=== PATIENT | male | born 1955 | race Caucasian/White ===

== ENCOUNTER → 2017-11-02 11:32 | Outpatient (CLI) | payer OTHER, SELFPAY ==
--- NOTE | 2017-11-02 11:34 | CT_ITS ---
STUDY: CT ABDOMEN AND PELVIS WITH CONTRAST REASON FOR EXAM: Male, 62 years old. Two-month history of 25 pound weight loss. Night sweats and anemia. RADIATION DOSAGE (If Supplied By Facility): CTDIvol = ( 21.24 ) mGy, DLP = ( 2180.86 ) mGycm TECHNIQUE: Transaxial images were obtained from the dome of the diaphragm to the symphysis pubis with oral contrast. 100mL ml of Isovue 300 contrast was administered. Sagittal and coronal images were reconstructed. Individualized dose optimization techniques were used for this CT. COMPARISON: Comparison is made with prior study dated July 19, 2017. FINDINGS: Bibasilar atelectasis worse on the left side. Bilateral intraluminal filling defects within the pulmonary arteries. Coronary artery calcification. There is decreased attenuation of the liver consistent with steatosis. Several small subcentimeter cysts are seen in the liver. There is a stable 1.9 cm x 2 cm indeterminate mass with peripheral enhancement along the edge of the left lobe of the liver. This may represent an atypical hemangioma. Prior MRI scan demonstrated this to be an hepatic hemangioma. Normal gallbladder and extrahepatic biliary system. Borderline splenomegaly. Normal pancreas. Normal bilateral adrenal glands. Numerous parapelvic cysts are once again seen in both kidneys. Normal visualized stomach. Normal small intestine. There are multiple colonic diverticula consistent with diverticulosis. The patient is status post appendectomy. Normal abdominal aorta. Normal inferior vena cava. There is borderline retroperitoneal lymphadenopathy with enlarged nodes no greater than 10mm in the short axis diameter. Normal urinary bladder. There are prostatic calcifications. There is a small umbilical hernia containing fat. Small left inguinal hernia containing fat. There are mild degenerative changes of the visualized lumbar spine. CT/Abdomen/Pelvis WITH Contrast IMPRESSION: Stable examination. Bilateral pulmonary emboli. Electronically Signed: Antoni Lawson MD at 14:43 EST Tel [phone], Service support ,
--- NOTE | 2017-11-02 11:42 | CT_ITS ---
STUDY: CT CHEST WITH CONTRAST REASON FOR EXAM: Male, 62 years old. Two-month history of 25 pound weight loss. Night sweats and anemia. RADIATION DOSAGE (If Supplied By Facility): CTDIvol = ( 21.24 ) mGy, DLP = ( 2180.86 ) mGycm TECHNIQUE: Transaxial imaging was performed following intravenous administration of 100mL ml of Isovue 300 contrast material. Multiplanar coronal and sagittal images were reformatted. Individualized dose optimization techniques were used for this CT. COMPARISON: None. FINDINGS: Multiple intraluminal filling defects are seen in the pulmonary arteries bilaterally. These involve both upper and lower lobes. The main pulmonary arteries are widely patent. Mild degree of bibasilar atelectasis slightly worse on the left side. Tiny left pleural effusion. Coronary artery calcification. Normal mediastinum. Normal hilar regions. Normal enhanced pulmonary arteries. Normal aorta arch and descending thoracic aorta. There are degenerative changes of the thoracic spine. Fatty infiltration of the liver. Several small hepatic cysts. CT/Chest WITH Contrast IMPRESSION: Multiple bilateral pulmonary emboli. The referring physician was notified. Electronically Signed: Antoni Lawson MD at 14:38 EST Tel [phone], Service support ,
== END ==
PROVIDERS: Family Provider Family Medicine Geriatric Medicine; PCP Family Medicine Geriatric Medicine; Visit Provider Family Medicine Geriatric Medicine
DX: R10.9 Unspecified abdominal pain (principal); R63.4 Abnormal weight loss
CPT/HCPCS: 71260; 74177; Q9967; A4216

== ENCOUNTER → 2017-11-02 14:27 | Outpatient (CLI) | payer OTHER, SELFPAY | PROVIDERS: Family Provider Family Medicine Geriatric Medicine; PCP Family Medicine Geriatric Medicine; Visit Provider Family Medicine Geriatric Medicine | DX: R79.1 Abnormal coagulation profile (principal) | CPT/HCPCS: 36415 ==

== ENCOUNTER → 2017-11-03 09:41 | Outpatient (CLI) | payer OTHER, SELFPAY ==
--- NOTE | 2017-11-03 | CYSPIN_PTH ---
PATIENT: SOWMYA PAREDES LOC: [facility] U#:[id number] AGE/SX: 70/M ROOM: RE11/03/[address]: Dr. Wade Arce MD : 1955 BED: DIS: SPEC #: [id number] RECD: 11/03/17 14:18 STATUS: CLINT KATELIN #: [id number] OSCAR: 11/03/17 00:[address]: Wade Arce Chi DEPT: CYTOLOGY RECD BY: Lisandro Morgan Tissues: Urine Procedures: Pap Stain (control) Special Stain Group II Cytospin Fluid HEADER OPERATION: Not noted PRE-OP DIAGNOSIS: R10.9 TISSUE SUBMITTED: Urine for cytology DIAGNOSIS CYTOLOGY Urine for cytology (cytospin): Degenerating urothelial cells are present. Crystalline debris noted. AM:ashley 11/06/17 CYTOLOGY STUDY Slides are reviewed. CYTOLOGY GROSS Received is 60 ml of gold, dark fluid labeled with the patient's name and and designated per the requisition as urine. Submitted for cytology preparation. 11/03/17 TC:5 CPT: 40823
[2017-11-03 09:47] LABS: Cytology, Body Fluid / CSF SEE PATHOLOGY REPORT
[2017-11-06 16:09] LABS: Albumin 3.1 g/dL (2.9-4.4); Alpha-1-Globulins 0.4 g/dL (0.0-0.4); Alpha-2-Globulins 0.6 g/dL (0.4-1.0); Gamma Globulin 1.8 g/dL (0.4-1.8); Immunoglobulin A 307 mg/dL (61-437); Immunoglobulin G 1681 mg/dL (700-1600); Immunoglobulin M 152 mg/dL (20-172); PROEL- TOTAL PROTEIN 6.9 g/dL (6.0-8.5); PROELU- Albumin, Urine 21.4 % (.); PROELU- Alpha-1-Globulin,Ur 2.1 % (.); PROELU- Alpha-2-Globulin,Ur 13.4 % (.); PROELU- Beta Globulin, Ur 27.1 % (.); Total Protein, Ur 25.3 mg/dL (Not Estab.)
[2017-11-07 10:26] LABS: AFP, Tumor Marker 1.7 ng/mL (0.0-8.3); Carbohydrate AG 19-9 4 U/mL (0-35); Carcinoembryonic Antigen 2.7 ng/mL (0.0-4.7)
== END ==
PROVIDERS: Family Provider Family Medicine Geriatric Medicine; PCP Family Medicine Geriatric Medicine; Visit Provider Family Medicine Geriatric Medicine
DX: C85.89 Other specified types of non-Hodgkin lymphoma, extranodal and solid organ sites (principal); D64.9 Anemia, unspecified; R10.9 Unspecified abdominal pain; R11.0 Nausea; R63.0 Anorexia
CPT/HCPCS: 36415; 82105; 82378; 82784; 84165; 84166; 86301; 86334; 88108; 88313

== ENCOUNTER → 2017-11-03 11:47 | Outpatient (CLI) | payer OTHER, SELFPAY ==
--- NOTE | 2017-11-03 11:49 | VDLE_ITS ---
Reason For Study: PE RIGHT LEFT GSV is normal. GSV is normal. CFV is compressible, spontaneous, phasic, CFV is compressible, spontaneous, phasic, competent and demonstrates normal competent, and demonstrates normal augmentation. augmentation. FV is compressible, spontaneous, phasic, FV is compressible, spontaneous, phasic, competent and demonstrates normal competent and demonstrates normal augmentation. augmentation. POP V is compressible, spontaneous, phasic, POP V is compressible, spontaneous, phasic, competent and demonstrates normal competent and demonstrates normal augmentation. augmentation. T/P Trunk is compressible. T/P Trunk is compressible. PTV is compressible. PTV is compressible. RT PerV is compressible. LT PerV is compressible. Procedure Exam performed in department. A preliminary report was called and/or faxed to Dr. Arce. Interpretation Summary Deep veins of the lower extremities are bilaterally patent and compressible segmentally. There is no evidence of deep vein thrombosis on either side. Valvular competence appears intact within the proximal deep venous systems bilaterally. The greater saphenous veins appear bilaterally patent and compressible segmentally. Ordering Physician: Wade Arce Referring Physician: Johan Collado Chi Performed By: Evelin Ornelas RVT
== END ==
PROVIDERS: Family Provider Family Medicine Geriatric Medicine; PCP Family Medicine Geriatric Medicine; Visit Provider Family Medicine Geriatric Medicine
DX: R60.0 Localized edema (principal)
CPT/HCPCS: 93970

== ENCOUNTER → 2017-11-13 10:26 | Outpatient (CLI) | payer OTHER, SELFPAY ==
[2017-11-09 10:14] VITALS: BMI 29.9
[2017-11-13 11:43] LABS: PSA,Total- Diagnostic 0.64 ng/mL (0.0-4.0)
== END ==
PROVIDERS: Family Provider Family Medicine Geriatric Medicine; PCP Family Medicine Geriatric Medicine; Visit Provider Nurse Practitioner Adult Health
DX: N40.1 Benign prostatic hyperplasia with lower urinary tract symptoms (principal)
CPT/HCPCS: 36415; 84153

== ENCOUNTER → 2017-11-16 17:04 | Outpatient (CLI) | payer OTHER, SELFPAY ==
[2017-11-14 14:40] VITALS: BP 100/66
--- NOTE | 2017-11-16 15:30 | CYSPIN_PTH ---
PATIENT: SOWMYA PAREDES LOC: [facility] U#:[id number] AGE/SX: 70/M ROOM: RE11/16/[address]: Dr. Dutch Bonilla MD : 1955 BED: DIS: SPEC #: [id number] RECD: 11/17/17 05:23 STATUS: CLINT KATELIN #: [id number] OSCAR: 11/16/17 15:[address]: Dutch Bonilla DEPT: CYTOLOGY RECD BY: Dylan Tyler ENTERED: 11/17/17 05:23 SP TYPE: CYSPIN FL OTHR DR: Dr. Wade Arce MD Tissues: Urine Procedures: Pap Stain (control) Special Stain Group II Cytospin Fluid HEADER OPERATION: Not noted PRE-OP DIAGNOSIS: Hematuria TISSUE SUBMITTED: Urine for cytology DIAGNOSIS CYTOLOGY Urine for cytology (cytospin): Negative for malignant cells. AM:ashley 11/20/17 CYTOLOGY STUDY Slides are reviewed. CYTOLOGY GROSS Received is 25 ml of thick, cloudy yellow-orange fluid labeled with the patient's name and and designated per the requisition as urine. Submitted for cytology preparation. 11/17/17 TC:5 CPT: 03175
[2017-11-16 17:06] LABS: Cytology, Body Fluid / CSF SEE PATHOLOGY REPORT
== END ==
PROVIDERS: Visit Provider Urology
DX: R31.9 Hematuria, unspecified (principal)
CPT/HCPCS: 88108; 88313

== ENCOUNTER → 2017-12-21 09:36 | Outpatient (CLI) | payer OTHER, SELFPAY ==
[2017-12-21 13:43] LABS: Absolute Lymphocyte Count 0.53 X10^3/ul (0.83-4.51); Absolute Neutrophil Count 5.7 X10^3/uL (2.0-7.7); Basophil# 0.03 X10^3/uL; Basophil% 0.4 % (0-1); Hematocrit 29.7 % (40-54); Lymphocyte # 0.53 X10^3/ul (4.0); Lymphocyte % 7.8 % (19-41); Mean Corp Hgb Conc 30.3 g/gl (32-36); Mean Corpuscular Hgb 25.9 pg (27.0-32.0); Mean Corpuscular Volume 85.6 fL (80-94); Mean Platelet Vol. 8.6 fl (6.2-12.0); Monocyte# 0.57 X10^3/uL; Monocyte% 8.4 % (0-10); Neutrophil # 5.66 X10^3/uL (2.7-7.7); Neutrophil % 83.1 % (47-70); Platelet Count 190 K/mm3 (150-450); RBC Distribution Width CV 16.1 % (11.6-14.6); RBC Distribution Width SD 48.9 fl (35.1-43.9); Red Blood Count 3.47 M/mm3 (4.6-6.2); White Blood Count 6.8 K/mm3 (4.4-11.0)
[2017-12-21 13:44] LABS: ALB/GLOB Ratio 0.6 RATIO (0.9-2.4); AST(SGOT) 14 U/L (15-37); Alanine Aminotransfer ALT/SGPT 15 U/L (16-61); Albumin, Serum 2.9 g/dL (3.2-5.0); Alkaline Phosphatase 58 U/L (45-117); Anion Gap 7 (5-15); BUN 26 mg/dL (7-18); BUN/Creat Ratio 20.2 RATIO (10-20); Calcium,Total 8.5 mg/dL (8.5-10.1); Chloride 103 mmol/L (98-107); Creatinine, Serum 1.29 mg/dL (0.70-1.30); EST Glomerular Filtration Rate 60 mL/min (>60); Est Glom Filt Rate - Afr Amer 72 mL/min (>60); Globulin 4.8 g/dL (2.2-4.2); Glucose 104 mg/dL (74-106); Potassium 4.8 mmol/L (3.5-5.1); Protein, Total 7.7 g/dL (6.4-8.2); Sodium Level 135 mmol/L (136-145); Thyroid Stim Hormone (TSH) 1.95 uIU/mL (0.358-3.74)
[2017-12-21 13:50] LABS: POSITIVE COUNT NO; POSITIVE DIFFERENTIAL YES; POSITIVE MORPHOLOGY NO
[2017-12-21 13:59] LABS: Differential Indicated SCAN CRITERIA MET
== END ==
PROVIDERS: Family Provider Family Medicine Geriatric Medicine; PCP Family Medicine Geriatric Medicine; Visit Provider Family Medicine Geriatric Medicine
DX: I10 Essential (primary) hypertension (principal)
CPT/HCPCS: 36415; 80053; 84443; 85025

== ENCOUNTER → 2017-12-26 15:20 | Outpatient (CLI) | payer OTHER, SELFPAY ==
[2017-12-26 15:58] LABS: Absolute Lymphocyte Count 0.68 X10^3/ul (0.83-4.51); Absolute Neutrophil Count 5.4 X10^3/uL (2.0-7.7); Basophil# 0.02 X10^3/uL; Basophil% 0.3 % (0-1); Hematocrit 28.9 % (40-54); Hemoglobin 8.7 g/dl (13.0-16.5); Lymphocyte # 0.68 X10^3/ul (4.0); Lymphocyte % 10.4 % (19-41); Mean Corp Hgb Conc 30.1 g/gl (32-36); Mean Corpuscular Hgb 25.2 pg (27.0-32.0); Mean Corpuscular Volume 83.8 fL (80-94); Mean Platelet Vol. 8.1 fl (6.2-12.0); Monocyte# 0.42 X10^3/uL; Monocyte% 6.4 % (0-10); Neutrophil # 5.43 X10^3/uL (2.7-7.7); Neutrophil % 82.9 % (47-70); Platelet Count 138 K/mm3 (150-450); RBC Distribution Width CV 16.6 % (11.6-14.6); RBC Distribution Width SD 51.1 fl (35.1-43.9); Red Blood Count 3.45 M/mm3 (4.6-6.2); White Blood Count 6.6 K/mm3 (4.4-11.0)
[2017-12-26 16:00] LABS: POSITIVE COUNT NO; POSITIVE DIFFERENTIAL NO; POSITIVE MORPHOLOGY NO
[2017-12-26 16:30] LABS: International Normalized Ratio 1.6; Prothrombin Time (Protime)PT. 19.5 SECONDS (11.7-14.9)
[2017-12-26 16:31] LABS: Partial Thromboplast Time 43.5 Seconds (24.1-36.2)
== END ==
PROVIDERS: Family Provider Family Medicine Geriatric Medicine; PCP Family Medicine Geriatric Medicine; Visit Provider Family Medicine Geriatric Medicine
DX: R23.3 Spontaneous ecchymoses (principal); D64.9 Anemia, unspecified
CPT/HCPCS: 36415; 85025; 85610; 85730

== ENCOUNTER → 2017-12-29 08:56 | Outpatient (CLI) | payer OTHER, SELFPAY ==
--- NOTE | 2017-12-29 | BMB_PTH ---
PATIENT: SOWMYA PAREDES LOC: CT U#:[id number] AGE/SX: 70/M ROOM: RE12/29/[address]: Dr. Miguel A Dubon MD : 1955 BED: DIS: SPEC #: [id number] RECD: 12/29/17 13:59 STATUS: CLINT JOHNSONTy #: [id number] OSCAR: 12/29/17 00:[address]: MiguelA Dubon DEPT: BONE MARROW RECD BY: Mariia Christopher ENTERED: 12/29/17 14:00 SP TYPE: BMB OTHR DR: Dr. Wade Arce MD Tissues: A - Bone marrow, NOS B - Bone marrow, NOS C - Bone marrow, NOS Procedures: Decalcification bone/plaque Bone Marrow Aspiration Special Stain Group II PAS Stain (control) Retic (control) Iron Stain (control) Russ Stain (control) Bone Marrow Core Biopsy Iron Stain Bone Marrow HEADER OPERATION: Right hip bone marrow core, clot and aspirate smears PRE-OP DIAGNOSIS: MGUS, anemia TISSUE SUBMITTED: A - Core, B - Clot, C - Smears, and send outs (flow, cytogenetics and MDS FISH) BONE MARROW DIAGNOSIS Right hip bone marrow core, clot and aspirate smears: Slightly hypercellular marrow with trilineage hematopoiesis. Negative for granuloma, lymphoma or malignancy. Iron - in traces, atypical or ring sideroblasts are not seen. Peripheral smear ? normocytic anemia. Flow cytometry study from [facility] shows no evidence for myeloid maturation or an increased blast population. There is no evidence for a lymphoproliferative disorder. Flow cytometry studies for plasma cell dyscrasia show no detectable clonal plasma cell population. The complete report is viewable in patient?s EMR. See comment. WILTON:ashley 01/04/18 COMMENT Bone marrow core is very limited in evaluation and consists of a minute piece of bone core with small amount of marrow tissue with trilineage hematopoiesis. Bone marrow clot consists of only a few marrow particles. Aspirate smears are hypocellular and shows hemodilution. Immunohistochemistry ([id number]) shows mild increase of plasma cells and are polytypic in nature. Serum protein immunofixation electrophoresis show IgG monoclonal protein with lambda light chain specificity and Delcambre appears asymmetrical. Correlation with clinical findings and appropriate follow up are necessary. Case has been reviewed in consultation with Dr. Zaman who concurs with the above diagnosis. IDC:AM BONE MARROW STUDY Slides are reviewed. CBC DATE: 12/29/17 WBC 6.6; RBC 3.56; HGB 9.2; HCT 30.0; MCV 84.3; RDW 16.1; PLTS [id number] SEGS 79.4%; LYMPHS 11.0%; MONOS 8.9%; EOS 0.2%; BASOS 0.3% PERIPHERAL SMEAR: Submitted. RBC: Normocytic anemia. WBC: Unremarkable. The WBC count is compatible to as reported above. PLTS: Adequate. BONE MARROW ASPIRATE DIFFERENTIAL: 200 cell count. Blasts % (normal 0-2): 0 Promyelocytes % (normal 1-5): 0 Myelocytes and metamyelocytes % (normal 17-41): 13 Bands and Segs % (normal 15-32): 70 Eos % (normal 1-6): 2 Basos % (normal 0-1): 0 Monocytes % (normal 0-4): 1 Erythroid Precursors % (normal 17-35): 5 Lymphocytes % (normal 7-13): 9 Plasma Cells % (normal 0-2): 0 ASPIRATE FINDINGS: Site: Right hip Aspicular, Hypocellular M/E ratio: Please see comment (Normal 1.5-4.0) Megakaryocytes: Present and normal morphology. Erythropoiesis: Normoblastic. Granulopoiesis: Progressive and unremarkable. Comment: The above count may not be accurate due to hemodilution. Increase number of plasma cells are not seen. CORE BIOPSY FINDINGS: Site: Right hip Adequacy: Limited Comment: A minute piece of bone core is noted with a small amount of marrow tissue with trilineage hematopoiesis. ASPIRATE CLOT FINDINGS: Site: Right hip Marrow particles: A few Cellularity: 60% M/E ratio: Within normal limits. Megakaryocytes: Present and adequate in number. Granulomas: Absent. Lymphoid aggregates: Absent. Atypical infiltrates: Absent. Comment: Immunohistochemistry ([id number]) shows mild increase of plasma cells and are polytypic in nature. SPECIAL STAINS WITH MATCHED CONTROLS: Iron: In traces, atypical or ring sideroblasts are not seen. Reticulin: No significant increase of reticulin fibers is noted. PAS: Highlights myeloid cells and megakaryocytes. BONE MARROW GROSS A - Received is a container labeled with the patient's name and designated right hip. The specimen consists of a minute piece of porras bone measuring 0.3 cm in length and 0.1 cm in diameter. The specimen is totally submitted in one cassette after decalcification. B - Received labeled with the patient's name and designated right hip is a specimen that consists of approximately 5 cc of bloody fluid that on filtration yields multiple fragments of blood clot measuring in aggregate 3 x 2.5 x 0.3 cm. The specimen is totally submitted in one cassette. C - Also received are 25 unstained and 1 peripheral stained slides. The unstained slides are submitted for appropriate staining. Also received are two green top tubes which are sent to our reference lab for flow, cytogenetics and MDS FISH. / SJ:rg 01/01/18 TC:5 CPT: 49854, 97797, 78157 x2, 27527 x3, 61487 ADDENDUM ADDENDUM ADDENDUM ADDENDUM ADDENDUM ADDENDUM ADDENDUM ADDENDUM ADDENDUM ADDENDUM ADDENDUM ADDENDUM ADDENDUM ADDENDUM ADDENDUM ADDENDUM 01/10/2018 09:21 ADDENDUM 01/10/2018 09:21 ADDENDUM 01/10/2018 09:21 ADDENDUM 01/10/2018 09:21 ADDENDUM 01/10/2018 09:21 CYTOGENETICS REPORT FROM [facility] INTERPRETATION: A normal male chromosome complement was observed in twenty metaphases analyzed. Karyotype: 46,XY[20] FLUORESCENCE IN SITU HYBRIDIZATION (FISH) MDS PANEL FROM [facility] INTERPRETATION: 1. No evidence of deletion of 5q or monosomy 5. 2. No evidence of monosomy 7 or deletion of 7q. 3. No evidence of trisomy 8 (+8). 4. No evidence of deletion of 20q12. Please see complete report in e-chart or EMR for further details
--- NOTE | 2017-12-29 | IMM_PTH ---
PATIENT: SOWMYA PAREDES LOC: CT U#:[id number] AGE/SX: 70/M ROOM: RE12/29/[address]: Dr. Miguel A Dubon MD : 1955 BED: DIS: SPEC #: [id number] RECD: 01/01/18 12:19 STATUS: CLINT RETy #: [id number] OSCAR: 12/29/17 00:[address]: Miguel A Dubon DEPT: IMMUNOHISTOCHEMISTRY RECD BY: Jazmyne Humphreys ENTERED: 01/01/18 12:19 SP TYPE: IMMUNO OTHR DR: Dr. Wade Arce MD Tissues: B - Bone marrow of iliac crest Procedures: CD138 (initial) KAPPA (add) LAMBDA (add) PHYSICIAN & INSTITUTION [place] [id number] SPECIMEN INFORMATION: Tissue Source: B ? Bone marrow clot Clinical Info: MGUS, anemia Specimen Number: [id number] CPT code: 07042, 85176 x2 METHODOLOGY: Deparaffinized sections of prefer/formalin-fixed tissue or PAP/DQ stained slides are incubated with monoclonal/polyclonal antibodies/oligonucleotide probes. Localization is made via biotin free immunoperoxidase method. Appropriate controls are performed and reacted as expected. Results on target cell population are indicated in the following table: RESULTS: ANTIBODY / CLONE RESULT Block B CD138 (B-A38) positive [place] (polyclonal) positive Lambda (polyclonal) positive These tests were developed and their performance characteristics determined by [facility]. They may not have been cleared or approved by the U.S. Food and Drug Administration. The FDA has determined that such clearance or approval is not necessary. INTERPRETATION: B. Bone marrow clot: Mild increase of plasma cells noted, polytypic in nature. SJ:ashley 01/04/18 Case has been reviewed in consultation with Dr. Zaman who concurs with the above diagnosis. IDC:AM
[2017-12-29 09:13] LABS: Absolute Lymphocyte Count 0.73 X10^3/ul (0.83-4.51); Absolute Neutrophil Count 5.3 X10^3/uL (2.0-7.7); Basophil# 0.02 X10^3/uL; Basophil% 0.3 % (0-1); Eosinophil# 0.01 X10^3/uL; Eosinophils% 0.2 % (0-5); Hemoglobin 9.2 g/dl (13.0-16.5); Lymphocyte # 0.73 X10^3/ul (4.0); Mean Corp Hgb Conc 30.7 g/gl (32-36); Mean Corpuscular Hgb 25.8 pg (27.0-32.0); Mean Corpuscular Volume 84.3 fL (80-94); Mean Platelet Vol. 8.2 fl (6.2-12.0); Monocyte# 0.59 X10^3/uL; Monocyte% 8.9 % (0-10); Neutrophil # 5.25 X10^3/uL (2.7-7.7); Neutrophil % 79.4 % (47-70); Platelet Count 169 K/mm3 (150-450); RBC Distribution Width CV 16.1 % (11.6-14.6); RBC Distribution Width SD 48.6 fl (35.1-43.9); Red Blood Count 3.56 M/mm3 (4.6-6.2); White Blood Count 6.6 K/mm3 (4.4-11.0)
[2017-12-29 09:14] LABS: POSITIVE COUNT NO; POSITIVE DIFFERENTIAL NO; POSITIVE MORPHOLOGY NO
[2017-12-29 09:22] LABS: International Normalized Ratio 1.2; Prothrombin Time (Protime)PT. 15.6 SECONDS (11.7-14.9)
[2017-12-29 09:23] LABS: Partial Thromboplast Time 35.3 Seconds (24.1-36.2)
[2017-12-29 09:31] VITALS: BP 128/77; PULSE 105; RESP 14; TEMP 36.8; O2SAT 96; BMI 27.8
--- NOTE | 2017-12-29 09:55 | CT_ITS ---
PROCEDURE: CT-GUIDED CORE BONE BIOPSY OF RIGHT ILIAC BONE WITH BONE MARROW ASPIRATION. Individualized dose optimization techniques were used for this CT. INDICATION: Male, 62 [address] guidance RADIATION DOSAGE (If Supplied By Facility): CTDIvol = ( ) mGy, DLP = ( ) mGycm CONSENT: The risks, benefits and alternatives to the procedure were explained to the patient, and the patient agreed to the procedure and signed the consent. SEDATION: Intermittent the intravenous and demonstration of Versed and fentanyl by nursing staff under continuous cardiopulmonary monitoring. Sedation less than approximately 30 minutes STERILE BARRIER TECHNIQUE: The following sterile barrier precautions were used during the procedure: hand hygiene; use of 2% chlorhexidine aseptic; use of a cap, mask, sterile gown, sterile gloves, sterile full body drape, and a large sterile sheet. PROCEDURE/TECHNIQUE: The risks, benefits, and alternatives to the procedure were explained to patient, and the patient agreed to the procedure and signed a consent form for the procedure. A timeout was performed to confirm the patient's identity, the type of procedure, to be performed and the site of entry. Patient was positioned left lateral decubitus on the CT scan table. Under CT guidance using sterile technique and after infiltration of the skin and subcutaneous soft tissues with 40 mL of lidocaine 1% a 10-gauge bone introducer device was advanced to the posterior aspect of the right iliac bone, a bone window is created then an 11-gauge core biopsy was introduced bone marrow aspiration is performed and a core bone sample was obtained. FINDINGS: Successful CT-guided core biopsy iliac bone with bone marrow aspiration. CT/Biopsy/Inj or Needle Placement IMPRESSION: Successful CT-guided core biopsy of the right iliac bone with bone marrow aspiration. Electronically Signed: Ceferino Miramontes MD at 9:20 EDT Tel , Service support ,
[2017-12-29 11:37] VITALS: BP 111/70; PULSE 100; RESP 20; O2SAT 97
== END ==
PROVIDERS: Family Provider Family Medicine Geriatric Medicine; PCP Family Medicine Geriatric Medicine; Visit Provider Internal Medicine Medical Oncology
DX: Z01.818 Encounter for other preprocedural examination (principal); D64.9 Anemia, unspecified; E72.12 Methylenetetrahydrofolate reductase deficiency; D47.2 Monoclonal gammopathy; R63.4 Abnormal weight loss; E88.09 Other disorders of plasma-protein metabolism, not elsewhere classified; Z79.01 Long term (current) use of anticoagulants; Z79.899 Other long term (current) drug therapy; Z86.711 Personal history of pulmonary embolism
CPT/HCPCS: 20220; 36415; 77012; 85025; 85610; 85730; 88305; 88311; 88313; 88341; 88342; 99156; J7040; A4216

== ENCOUNTER → 2018-01-02 07:47 | Outpatient (CLI) | payer OTHER, SELFPAY ==
--- NOTE | 2018-01-02 08:30 | MRI_ITS ---
STUDY: MRI BRAIN WITHOUT CONTRAST REASON FOR EXAM: Male, 62 years old. Unintentional weight loss. Low hemoglobin. Recent bone biopsy results are not available. TECHNIQUE: Standardized multiplanar fat and water weighted pulse sequences were obtained. COMPARISON: None. FINDINGS: No restricted diffusion to suspect acute or subacute ischemic infarct. Normal size of the ventricles and extra-axial spaces for the patient's age. Few subcortical white matter T2 FLAIR hyperintensity foci in the frontal parietal lobe convexities may be secondary to microvascular disease. The bulk of the white matter is normal. Normal bilateral basal ganglia. Normal thalami. There is no extra-axial fluid accumulation. Normal flow voids within the major intracranial circulation suggesting patency by spin echo criteria. Normal sella turcica, pituitary gland, infundibular stalk, optic chiasm and hypothalamus. Normal tectal plate and pineal gland. Normal midbrain, david and medulla. Normal cerebellum. Normal basal cisterns. Normal bilateral temporal bones. Normal bilateral internal auditory canals. No demonstrated orbital abnormality, within the constraints of a routine brain study. Contraction and mucosal thickening of the left maxillary sinus secondary to chronic sinusitis. Normal calvarium and skull base. Normal visualized soft tissue structures. Normal visualized upper cervical spine. MRI/Brain without Contrast IMPRESSION: 1. No MRI evidence of acute or subacute ischemic infarct. 2. Few subcortical white matter T2 FLAIR hyperintensity foci in both frontal parietal lobe convexities may be secondary to microvascular disease. 3. No MRI evidence of remote cortical-based ischemic infarct. Electronically Signed: Ken Gregory MD at 10:04 EDT , Service support ,
== END ==
PROVIDERS: Family Provider Family Medicine Geriatric Medicine; PCP Family Medicine Geriatric Medicine; Visit Provider Family Medicine Geriatric Medicine
DX: R63.4 Abnormal weight loss (principal)
CPT/HCPCS: 70551

== ENCOUNTER → 2018-01-04 10:15 | Outpatient (CLI) | payer OTHER, SELFPAY ==
--- NOTE | 2018-01-04 10:19 | NM_ITS ---
CLINICAL: 62-year-old male with reported history of abdominal pain and nausea. SEMI-SOLID PHASE 99m Tc SULFUR COLLOID GASTRIC EMPTYING STUDY COMPARISON: CT of the abdomen-pelvis report 11/02/2017 FINDINGS: The patient was administered 1.1 mCi of 99m Tc sulfur colloid mixed with oatmeal and consumed per os. Image acquisitions in the anterior-posterior projections for a total of 60 minutes. There is prompt visualization of the stomach. There is no gastroesophageal reflux identified. The T1/2 linear fit was calculated to be 53.09 minutes, (Normal: 12-56 minutes). NM/Gastric Emptying Study IMPRESSION: 1. NORMAL 99m Tc sulfur colloid semi-solid phase (oatmeal) gastric emptying imaging examination. A. There is upper limits of normal and preserved semi-solid phase gastric emptying compared to normal controls with maintained first order kinetics throughout all components of the examination. (Jhonatan et al, J Nucl Med Tech 38: 186, 2010). Electronically Signed: Dylan Gil DO at 12:41 EDT Tel , Service support ,
== END ==
PROVIDERS: Family Provider Family Medicine Geriatric Medicine; PCP Family Medicine Geriatric Medicine; Visit Provider Family Medicine Geriatric Medicine
DX: R11.2 Nausea with vomiting, unspecified (principal)
CPT/HCPCS: 78264; A9541

== ENCOUNTER → 2018-01-05 10:04 | Outpatient (CLI) | payer OTHER, SELFPAY ==
[2018-01-05 11:56] LABS: Absolute Lymphocyte Count 0.52 X10^3/ul (0.83-4.51); Absolute Neutrophil Count 4.8 X10^3/uL (2.0-7.7); Basophil# 0.03 X10^3/uL; Basophil% 0.5 % (0-1); Hematocrit 27.3 % (40-54); Hemoglobin 8.1 g/dl (13.0-16.5); Lymphocyte # 0.52 X10^3/ul (4.0); Mean Corp Hgb Conc 29.7 g/gl (32-36); Mean Corpuscular Hgb 25.2 pg (27.0-32.0); Mean Corpuscular Volume 84.8 fL (80-94); Mean Platelet Vol. 8.5 fl (6.2-12.0); Monocyte# 0.47 X10^3/uL; Monocyte% 8.1 % (0-10); Neutrophil # 4.76 X10^3/uL (2.7-7.7); Neutrophil % 82.2 % (47-70); Platelet Count 193 K/mm3 (150-450); RBC Distribution Width CV 16.3 % (11.6-14.6); RBC Distribution Width SD 49.2 fl (35.1-43.9); Red Blood Count 3.22 M/mm3 (4.6-6.2); White Blood Count 5.8 K/mm3 (4.4-11.0)
[2018-01-05 11:57] LABS: Differential Indicated SCAN CRITERIA MET; POSITIVE COUNT NO; POSITIVE DIFFERENTIAL NO; POSITIVE MORPHOLOGY YES
== END ==
PROVIDERS: Family Provider Family Medicine Geriatric Medicine; PCP Family Medicine Geriatric Medicine; Visit Provider Family Medicine Geriatric Medicine
DX: D64.9 Anemia, unspecified (principal)
CPT/HCPCS: 36415; 85025

== ENCOUNTER 2018-01-18 09:05 | Inpatient (IN) | payer OTHER, SELFPAY ==
[2018-01-18] VITALS (28 sets, daily range): BP systolic 116–184; BP diastolic 69–106; PULSE 57–145; RESP 14–40; TEMP 36.9–38.4; O2SAT 89–100; BMI 27.8; BMI 34.0; BMI 34.1
--- NOTE | 2018-01-18 09:27 | RAD_ITS ---
STUDY: X-RAY CHEST REASON FOR EXAM: Male, 62 years old. Increasing shortness of breath. TECHNIQUE: Single AP portable view of the chest. COMPARISON: Comparison is made with prior examination dated October 19, 2017. FINDINGS: EKG electrodes are seen. There now is evidence of increased interstitial markings in the lungs with vascular congestion in keeping with a mild degree of CHF. There is no demonstrated pleural abnormality. Normal size heart. Normal mediastinum and lauryn. Normal visualized pulmonary arteries. There is atherosclerotic tortuosity of the aortic arch and descending thoracic aorta. Normal visualized thoracic spine. Normal visualized ribs, clavicles, and shoulders. There is no demonstrated abnormality of the visualized soft tissue structures of the upper abdomen. RAD/Chest 1 View (Portable) IMPRESSION: Findings are in keeping with a mild degree of CHF. Electronically Signed: Antoni Lawson MD at 9:54 EDT Tel [phone], Service support ,
--- NOTE | 2018-01-18 09:27 | EKG12_ITS ---
Test Reason : SOB Blood Pressure : / mmHG Vent. Rate : 130 BPM Atrial Rate : 130 BPM P-R Int : 142 ms QRS Dur : 090 ms QT Int : 302 ms P-R-T Axes : 025 018 071 degrees QTc Int : 444 ms Sinus tachycardia with occasional Premature ventricular complexes Nonspecific ST and T wave abnormality Abnormal ECG Confirmed by SHASTA PASTRANA, RAIN ([id number]), junior programmer analyst MIKHAIL GUEVARA ([id number]) on 01/19/2018 11:54:16 AM Referred By: AGUILA Confirmed By:RAIN VEGAS MD
[2018-01-18 09:59] LABS: Absolute Neutrophil Count 13.1 X10^3/uL (2.0-7.7); Hematocrit 24.4 % (40-54); Hemoglobin 7.4 g/dl (13.0-16.5); Lymphocyte % 2.8 % (19-41); Mean Corp Hgb Conc 30.3 g/gl (32-36); Mean Corpuscular Hgb 26.3 pg (27.0-32.0); Mean Corpuscular Volume 86.8 fL (80-94); Mean Platelet Vol. 8.3 fl (6.2-12.0); Monocyte# 0.53 X10^3/uL; Monocyte% 3.8 % (0-10); Neutrophil # 13.14 X10^3/uL (2.7-7.7); Platelet Count 142 K/mm3 (150-450); Red Blood Count 2.81 M/mm3 (4.6-6.2); White Blood Count 14.1 K/mm3 (4.4-11.0)
[2018-01-18] MEDS: 0.9% Normal Saline 1,000 ML 150 ML IV (10:00)
[2018-01-18 10:01] LABS: Differential Indicated SCAN CRITERIA MET; POSITIVE COUNT NO; POSITIVE DIFFERENTIAL YES; POSITIVE MORPHOLOGY NO
--- NOTE | 2018-01-18 10:12 | CASEMGMT ---
Social Work Note In to complete initial assessment as pt is targeted as an anticipated admission. Introduced self and role at [facility]. The pt is alert and oriented. Pt keeps eyes closed throughout assessment and gives short answers in response to inquiries. and daughter are present at bedside. Pt reports to live with his in a two-story home with 3-4 entry steps with railings, and he does have to utilize a flight of stairs, that has a railing. Denies access issues within the home and does not own any DME nor does he anticipate DME needs. Pt confirms that his PCP is Dr. Arce and preferred pharmacy is [facility] in [place]. He also states that he started seeing Dr. Dubon this year and has started steroid treatment which has helped some of the fatique he was experiencing the previous 4-5 months. Reports stomach pain and states that my stomach won't absorb iron. Pt denies mental health hx and states that she thinks he is depressed. Pt becomes agitated with this comment and requests that she, keep her mouth shut. Attempt to explore concern with pt his is abrupt in answering, but does respond. Expresses frustration with limitation of answers in regard to health. Emotional support provided. Pt is not open to counseling or discussion regarding counseling at this time. States that he is not depressed. Pt denies substance abuse. At this time pt and family do not anticipate needs at discharge. Made aware that SW is available and that RN CM or SW would be available if admitted. Yanet Roa, MIDDLE OR INTERMEDIATE SCHOOL PRINCIPAL, TIGHT BARREL INSPECTOR
[2018-01-18 10:14] LABS: ALB/GLOB Ratio 0.6 RATIO (0.9-2.4); AST(SGOT) 17 U/L (15-37); Alanine Aminotransfer ALT/SGPT 27 U/L (16-61); Albumin, Serum 2.6 g/dL (3.2-5.0); Alkaline Phosphatase 57 U/L (45-117); Anion Gap 12 (5-15); BUN 46 mg/dL (7-18); BUN/Creat Ratio 26.7 RATIO (10-20); Calcium,Total 7.8 mg/dL (8.5-10.1); Chloride 117 mmol/L (98-107); Creatinine, Serum 1.72 mg/dL (0.70-1.30); EST Glomerular Filtration Rate 43 mL/min (>60); Est Glom Filt Rate - Afr Amer 52 mL/min (>60); Estimated Creatinine Clearance 46.21 ml/min; Glucose 108 mg/dL (74-106); Potassium 3.6 mmol/L (3.5-5.1); Protein, Total 6.6 g/dL (6.4-8.2); Sodium Level 148 mmol/L (136-145)
[2018-01-18 10:18] LABS: Anisocytosis 1+; Ovalocyte 2+; Polychromasia 1+
[2018-01-18] MEDS: Acetaminophen 500 MG Tablet 1000 MG PO (10:24)
[2018-01-18 10:37] LABS: BNP,B-Type NATRIURETIC PEPTIDE 850.1 pg/mL (0-100)
[2018-01-18 11:01] LABS: Color, Urine Yellow (Yellow); Glucose, Dipstick Normal (Normal); Ketone-Dipstick Negative (Negative); Leukocyte Esterase-Dipstick 25 /ul (Negative); Nitrite-Dipstick Negative (Negative); Occult Blood-Urine 250 /ul (Negative); Protein-Dipstick 100 mg/dl (Negative); Urine Bilirubin Dipstick Negative (Negative); Urine Clarity Sl. Cloudy (Clear); Urine Urobilinogen Normal (Normal)
[2018-01-18 11:08] LABS: Bacteria 1+ /hpf (None Seen); Fine Granular Cast- Urine 0-5 SEEN /lpf (0-5); Hyaline Cast 0-5 SEEN /lpf (0-5); Mucous, Urine RARE /hpf (<or=2+); Red Blood Cells-Urine 10-25 SEEN /hpf (0-5); Squamous Epithelial Cells - UA 0-5 SEEN /hpf (0-5); White Blood Cells 0-5 SEEN /hpf (0-5)
--- NOTE | 2018-01-18 11:14 | ED.VISSUMM ---
- ER Visit Summary Date of Service: 01/18/18 Chief Complaint: [Shortness of breath] History of Present Illness: The patient is a 62 M [presents to the emergency department with complaint of feeling short of breath today. Patient had fever and chills that started today. Patient states that he has been sick since of last year. Patient is believed to have some sort of a connective tissue disorder and is scheduled to follow-up with a linking machine operator but not for several months. Patient states he has lost about 40 pounds since last August. Patient denies any abdominal pain currently. He denies any cough. Patient denies urinary symptoms other than he has had some intermittent blood in his urine. Patient does have a history of pulmonary embolism and is currently on Eliquis.] Physical Examination: [HEENT-PERRLA, EOMI. Cranial nerves II through XII grossly intact. TMs clear. Mucous membranes moist. No adenopathy. Cardiovascular-regular and tachycardic. Patient has a 2 out of 6 systolic ejection murmur. Lungs-clear to auscultation, chest wall stable without crepitus or subcu emphysema Abdomen-normoactive bowel sounds, soft, nontender, no rebound or rigidity, no peritoneal signs. Extremities-intact ?4, normal range of motion, normal pulses, atraumatic]. Patient does have a rash noted on the lower extremities and appears petechial. The rash has been present for several months. Test Results: [EKG obtained arrival shows sinus tachycardia with a ventricular rate of 130 bpm with some nonspecific ST changes. CBC with differential and a 14, heme globin 7.4, hematocrit 24, platelets 142. Chemistries unremarkable. Troponin was 0.13. BNP was elevated 850. Lactate was 4.0. Chest x-ray showed mild CHF. Blood cultures ordered and pending.] Emergency Department Course and Treatment: [Patient was empirically started on Zosyn IV. Patient was treated with IV fluids.] Treatment Plan: [Admit] Disposition: [Admit] Impression: [Sepsis syndrome Anemia Hypoxemia] This note was generated with [employer] software. It may contain incorrect words, spelling, and punctuation that were not noted in review of the chart prior to signing ED Disposition - Plan for ED Patient: Chief Complaint: Shortness of Breath Referrals: Wade Arce Chi, MD [Primary Care Provider] -
--- NOTE | 2018-01-18 11:17 | ED.DCSUM_ITS ---
- ER Visit Summary Date of Service: 01/18/18 Chief Complaint: [Shortness of breath] History of Present Illness: The patient is a 62 M [presents to the emergency department with complaint of feeling short of breath today. Patient had fever and chills that started today. Patient states that he has been sick since of last year. Patient is believed to have some sort of a connective tissue disorder and is scheduled to follow-up with a social worker assistant but not for several months. Patient states he has lost about 40 pounds since last August. Patient denies any abdominal pain currently. He denies any cough. Patient denies urinary symptoms other than he has had some intermittent blood in his urine. Patient does have a history of pulmonary embolism and is currently on Eliquis.] Physical Examination: [HEENT-PERRLA, EOMI. Cranial nerves II through XII grossly intact. TMs clear. Mucous membranes moist. No adenopathy. Cardiovascular-regular and tachycardic. Patient has a 2 out of 6 systolic ejection murmur. Lungs-clear to auscultation, chest wall stable without crepitus or subcu emphysema Abdomen-normoactive bowel sounds, soft, nontender, no rebound or rigidity, no peritoneal signs. Extremities-intact ?4, normal range of motion, normal pulses, atraumatic]. Patient does have a rash noted on the lower extremities and appears petechial. The rash has been present for several months. Test Results: [EKG obtained arrival shows sinus tachycardia with a ventricular rate of 130 bpm with some nonspecific ST changes. CBC with differential and a 14, heme globin 7.4, hematocrit 24, platelets 142. Chemistries unremarkable. Troponin was 0.13. BNP was elevated 850. Lactate was 4.0. Chest x-ray showed mild CHF. Blood cultures ordered and pending.] Emergency Department Course and Treatment: [Patient was empirically started on Zosyn IV. Patient was treated with IV fluids.] Treatment Plan: [Admit] Disposition: [Admit] Impression: [Sepsis syndrome Anemia Hypoxemia] This note was generated with [employer] software. It may contain incorrect words, spelling, and punctuation that were not noted in review of the chart prior to signing ED Disposition - Plan for ED Patient: Chief Complaint: Shortness of Breath Referrals: Wade Arce Chi, MD [Primary Care Provider] -
--- NOTE | 2018-01-18 11:22 | CT_ITS ---
STUDY: CT CHEST WITHOUT CONTRAST REASON FOR EXAM: Male, 62 years old. Increased wheezing. RADIATION DOSAGE (If Supplied By Facility): CTDIvol = ( 17.33 ) mGy, DLP = ( 614.98 ) mGycm TECHNIQUE: Transaxial imaging was performed without the administration of intravenous contrast material. Multiplanar coronal and sagittal images were reformatted. Individualized dose optimization techniques were used for this CT. COMPARISON: Comparison is made with prior study dated May 02, 2018. FINDINGS: Small bilateral pleural effusions. Increased markings in the central portions of both lungs with groundglass appearance suggestive of mild degree of CHF. There are calcifications of the coronary arteries. Cardiomegaly. Mild thickening of the pericardium in keeping with a tiny pericardial effusion. There are multiple small lymph nodes within the mediastinum, which are normal in size and morphology most compatible with reactive lymph hyperplasia. Normal hilar regions. Normal unenhanced pulmonary arteries. There is atherosclerotic calcification of the aortic arch with tortuosity and elongation of the aortic arch and descending thoracic aorta. There are multi-level degenerative changes of the thoracic spine. There is no demonstrated abnormality of the visualized upper abdomen. CT/Chest without Contrast IMPRESSION: Small bilateral pleural effusions. Findings suggest a mild degree of CHF. Small pericardial effusion. Electronically Signed: Antoni Lawson MD at 12:41 EDT Tel [phone], Service support ,
--- NOTE | 2018-01-18 11:27 | HP.PCM_ITS ---
Problem List (1) Cryoglobulinemia Status: Chronic (2) Segmental and somatic dysfunction of lumbar region Status: Chronic (3) Segmental and somatic dysfunction of pelvic region Status: Chronic (4) Segmental and somatic dysfunction of thoracic region Status: Chronic (5) Umbilical hernia without mention of obstruction or gangrene Status: Chronic Qualifiers: Obstruction and gangrene presence: without obstruction or gangrene Qualified Code(s): K42.9 - Umbilical hernia without obstruction or gangrene (6) Anemia Status: Chronic Qualifiers: Anemia type: unspecified type Qualified Code(s): D64.9 - Anemia, unspecified (7) 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 (8) DDD (degenerative disc disease), lumbar Status: Chronic (9) Hypoalbuminemia Status: Chronic (10) MGUS (monoclonal gammopathy of unknown significance) Status: Chronic (11) Nausea Status: Chronic (12) Weight loss, unintentional Status: Chronic History of Present Illness Date of Admission: 01/18/18 Chief Complaint: Shortness of breath The patient is a 62 year old M history significant for hypercoagulable state with PEs in the past on systemic anticoagulant with Eliquis, 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 Patient states he has lost almost 30 pounds since last August (2016). Woke up on the morning of his admission and shortness of breath. He also did experience subjective fever as well as chills. In view of the progressive nature of his symptoms patient presented to the emergency department imaging studies obtained in the ED with both checks x-ray as well as CT of the chest demonstrated findings consistent with congestive heart failure. Patient was found to have lactic acid level greater than 4 however his presentation was not consistent with septic shock his systolic blood pressure on admission was greater than 180 patient did have leukocytosis on admission however he had been on high-dose steroids diagnosed by his primary care physician on account of his presumptive diagnosis of vasculitis Past Medical History Past Medical History (Chronic Problems): Chronic Problems (Last Reviewed 01/11/18 @ 08:40 by Shirley Pearce) Umbilical hernia without mention of obstruction or gangrene (Chronic) Segmental and somatic dysfunction of lumbar region (Chronic) Weight loss, unintentional (Chronic) Anemia (Chronic) Nausea (Chronic) Hypoalbuminemia (Chronic) Compound heterozygous MTHFR mutation [id number] (Chronic) MGUS (monoclonal gammopathy of unknown significance) (Chronic) Cryoglobulinemia (Chronic) Segmental and somatic dysfunction of pelvic region (Chronic) Segmental and somatic dysfunction of thoracic region (Chronic) DDD (degenerative disc disease), lumbar (Chronic) Allergies pravastatin Adverse Reaction (Severe, Verified 01/11/18 08:41) SEVERE MUSCLE CRAMPING Home Medications: Ambulatory Orders Medication Instructions Recorded Levothyroxine [Synthroid] 25 mcg PO DAILY 05/17/16 Lisinopril [Zestril] 10 mg PO DAILY 05/17/16 Metoprolol Tartrate [Lopressor 50 mg PO BID 05/17/16 (Beta Kita)] Atropine Sulfate in 0.9% NaCl 10 ml LEFT EYE DAILY 10/30/17 [Atropine 0.01%-Ns Eye Drops] prednisoLONE eye drops (1 mL) 1 drop LEFT EYE BID 10/30/17 [Pred Forte 1 ml] Omeprazole 20 mg PO DAILY #60 capsule. 10/31/17 Acetaminophen [Tylenol Extra 500 mg PO PRN PRN 11/14/17 Strength] Apixaban [Eliquis] 5 mg PO BID 11/14/17 Prednisone [Prednisone] 60 mg PO DAILY 01/18/18 Smoking Status: Never smoker - *Family History Maternal History Items: Heart Disease Paternal History Items: Heart Disease Review of Systems Constitutional: Reports: Anorexia, Chills, Fever, Malaise, Weakness, Weight Change HEENT: Denies: Head Aches, Sinus Congestion, Sinus Drainage Cardiovascular: Denies: Chest Pain, Orthopnea, Palpitations, Paroxysmal Noc. Dyspnea Respiratory: Reports: Shortness of Breath Gastrointestinal: Denies: Abdominal Pain, Hematemesis, Hematochezia, Nausea, Melena, Vomiting Genitourinary: Denies: Dysuria, Frequency, Hematuria, Urgency Musculoskeletal: Denies: Joint Pain, Joint Tenderness Skin: Denies: Rash Neurological: Denies: Focal weakness, Numbness, Tingling Psychiatric: Denies: Homicidal Ideations, Suicidal Ideations Hematologic/ Lymphatic: Reports: Petechiae, Hx of blood clot. Denies: Easy Bruising, Easy Bleeding VTE Information - Inpt Only VTE Present on Admission: No VTE Mechan Device Prophylaxis: Knee High REI Hose VTE Pharm Prophylaxis ordered?: Yes Objective: GENERAL: Patient appears ill looking and dyspneic at rest HEENT: Clear conjunctiva, NECK; supple, normal thyroid, no distended JVD. CHEST: Diminished to auscultation HEART: Regular S1 S2, tachycardic ABDOMEN: soft, non-tender, normoactive bowel sounds, RECTAL: deferred EXTREMITIES: No clubbing, no cyanosis. 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 SKIN: Petechial rash on both lower extremities - Physical Exam Vital Signs Temp Pulse Resp BP Pulse Ox 101.1 F H 106 H 22 H 139/82 H 96 01/18/18 09:06 01/18/18 10:49 01/18/18 10:49 01/18/18 10:49 01/18/18 10:49 Oxygen Flow Rate (L/min) 4 Oxygen Delivery Method Nasal Cannula Weight: 90.718 kg Body Mass Index (BMI) 27.8 Microbiology Past 72 Hours 01/18/18 09:41 Influenza Types A,B Direct FA (SHAY) - Final Mucosa - Nose Laboratory Tests Past 24 Hrs 01/18/18 01/18/18 01/18/18 09:40 09:40 09:40 WBC 14.1 H RBC 2.81 L Hgb 7.4 L Hct 24.4 L MCV 86.8 MCH 26.3 L MCHC 30.3 L RDW 19.0 H RDW Differential 56.0 H Plt Count 142 L MPV 8.3 Immature Gran % (Auto) 0.400 Neut % (Auto) 93.0 H Lymph % (Auto) 2.8 L Titus % (Auto) 3.8 Eos % (Auto) 0.0 Baso % (Auto) 0.0 Absolute Neuts (auto) 13.1 H Absolute Lymphs (auto) 0.40 L Total Counted Not Reportable Polychromasia 1+ Anisocytosis 1+ Ovalocytes 2+ Sodium 148 H Potassium 3.6 Chloride 117 H Carbon Dioxide 19.0 L Anion Gap 12 BUN 46 H Creatinine 1.72 H Estim Creat Clear Calc 46.21 Est GFR (MDRD) Af Amer 52 L Est GFR (MDRD) Non-Af 43 L BUN/Creatinine Ratio 26.7 H Glucose 108 H Lactic Acid 4.0 H* Calcium 7.8 L Total Bilirubin 1.00 AST 17 ALT 27 Alkaline Phosphatase 57 Troponin I 0.13 H B-Natriuretic Peptide Total Protein 6.6 Albumin 2.6 L Globulin 4.0 Albumin/Globulin Ratio 0.6 L Urine Color Urine Clarity Urine pH Ur Specific [place] Urine Protein Urine Glucose (UA) Urine Ketones Urine Occult Blood Urine Nitrite Urine Bilirubin Urine Urobilinogen Ur Leukocyte Esterase Urine RBC Urine WBC Ur Squamous Epith Cells Urine Bacteria Hyaline Casts Fine Granular Casts Urine Mucus Blood Type Antibody Screen 01/18/18 01/18/18 01/18/18 09:40 10:33 10:33 WBC RBC Hgb Hct MCV MCH MCHC RDW RDW Differential Plt Count MPV Immature Gran % (Auto) Neut % (Auto) Lymph % (Auto) Titus % (Auto) Eos % (Auto) Baso % (Auto) Absolute Neuts (auto) Absolute Lymphs (auto) Total Counted Polychromasia Anisocytosis Ovalocytes Sodium Potassium Chloride Carbon Dioxide Anion Gap BUN Creatinine Estim Creat Clear Calc Est GFR (MDRD) Af Amer Est GFR (MDRD) Non-Af BUN/Creatinine Ratio Glucose Lactic Acid Calcium Total Bilirubin AST ALT Alkaline Phosphatase Troponin I B-Natriuretic Peptide 850.1 H Total Protein Albumin Globulin Albumin/Globulin Ratio Urine Color Yellow Urine Clarity Sl. Cloudy Urine pH 6.0 Ur Specific [place] 1.010 Urine Protein 100 H Urine Glucose (UA) Normal Urine Ketones Negative Urine Occult Blood 250 H Urine Nitrite Negative Urine Bilirubin Negative Urine Urobilinogen Normal Ur Leukocyte Esterase 25 H Urine RBC 10-25 SEEN Urine WBC 0-5 SEEN Ur Squamous Epith Cells 0-5 SEEN Urine Bacteria 1+ Hyaline Casts 0-5 SEEN Fine Granular Casts 0-5 SEEN Urine Mucus RARE Blood Type Pending Antibody Screen Pending Assessment/Plan Patient is a 62-year-old gentleman who is currently undergoing evaluation as outpatient for possible vasculitis presented with sudden onset of shortness of breath imaging studies obtained on admission with chest x-ray as well as CT of the chest demonstrated features consistent with congestive heart failure admitted to monitored bed for further management 1. Acute dyspnea secondary to acute congestive heart failure probably diastolic dysfunction patient was initially started on fluids in view of suspected sepsis however his presentation is not consistent. Patient was placed on low-dose Lasix ordered a 2D echo strict input and output 2. Sepsis syndrome ruled out. Patient has no identifiable source of infection is elevated lactic acid level is from increased work of breathing 3. 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 Patient was placed on high-dose steroids by PCP did continue 4. History of hypercoagulable state with PEs on systemic anticoagulation 5. Paroxysmal A. fib 6. Mitral valve prolapse 7. Hypothyroidism-patient is on levothyroxine home dose continued 8. Hypertension 9. Anemia secondary to anemia of chronic disorder; been seen and evaluated by hematology as outpatient; ordered iron studies on admission, monitoring HH with plans to transfuse if patient becomes symptomatic or hemoglobin falls below 7 10. Renal failure; patient kidney function worsened since the beginning of the year from 0.9 in October to 1.28 in December and currently 1.7. Consult was placed to nephrology as a result ordered renal ultrasound for subsequent evaluation 11. DVT prophylaxis patient is on Eliquis no need for additional measures Clinical Impression(s) from Imaging Studies Chest X-Ray 01/18/18 09:27 IMPRESSION: Findings are in keeping with a mild degree of CHF. Chest CT 01/18/18 11:22 IMPRESSION: Small bilateral pleural effusions. Findings suggest a mild degree of CHF. Small pericardial effusion. Code Visit Inpatient E&M: 64709 Init Hosp L3
--- NOTE | 2018-01-18 11:41 | NURSING ---
ICU 6 SEPSIS [facility]ITTOE
--- NOTE | 2018-01-18 13:10 | PCM.CON.CC ---
Reason for Consult Date of Consultation: 01/18/18 Reason for Consultation: Severe sepsis History of Present Illness: The patient is a 62-year-old male, with a history as outlined below, who presented to the emergency department on January 18 with complaints of shortness of breath, fevers and chills. The patient has chronic anemia, having undergone an upper and lower endoscopy in October 2017 which showed areas of gastritis. He was also recently diagnosed with bilateral pulmonary emboli in October 2017, for which she is being treated with Eliquis. He is currently being followed by Dr. 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 On presentation to the emergency department, the patient was noted to be febrile, tachycardic and hypertensive. He was initially noted to be tachypneic and hypoxic. Initial laboratory evaluation revealed elevated white blood cell count 14,000. There is evidence of anemia with a hemoglobin of 7.4. The patient appears to have had a slow downward decline in his baseline hemoglobin level since October 2017. Chemistry profile was notable for a sodium of 148, chloride of 117, bicarbonate of 19 and evidence of acute kidney injury with a creatinine of 1.72. Serum lactate was elevated to 4.0. Troponin was elevated to 0.13 with a BNP of 850. Plain film chest x-ray revealed a mild degree of pulmonary vascular congestion. Follow-up CT scan revealed groundglass airspace opacities bilaterally with small bilateral pleural effusions consistent with CHF. The patient was started on maintenance IV fluid hydration and was given Zosyn. Past Medical History Past Medical History (Chronic Problems): Chronic Problems (Last Reviewed 01/11/18 @ 08:40 by Shirley Pearce) Umbilical hernia without mention of obstruction or gangrene (Chronic) Segmental and somatic dysfunction of lumbar region (Chronic) Weight loss, unintentional (Chronic) Anemia (Chronic) Nausea (Chronic) Hypoalbuminemia (Chronic) Compound heterozygous MTHFR mutation [id number] (Chronic) MGUS (monoclonal gammopathy of unknown significance) (Chronic) Cryoglobulinemia (Chronic) Segmental and somatic dysfunction of pelvic region (Chronic) Segmental and somatic dysfunction of thoracic region (Chronic) DDD (degenerative disc disease), lumbar (Chronic) Allergies pravastatin Adverse Reaction (Severe, Verified 01/11/18 08:41) SEVERE MUSCLE CRAMPING Home Medications: Ambulatory Orders Medication Instructions Recorded Levothyroxine [Synthroid] 25 mcg PO DAILY 05/17/16 Lisinopril [Zestril] 10 mg PO DAILY 05/17/16 Metoprolol Tartrate [Lopressor 50 mg PO BID 05/17/16 (Beta [facility]ita)] Atropine Sulfate in 0.9% NaCl 10 ml LEFT EYE DAILY 10/30/17 [Atropine 0.01%-Ns Eye Drops] prednisoLONE eye drops (1 mL) 1 drop LEFT EYE BID 10/30/17 [Pred Forte 1 ml] Acetaminophen [Tylenol Extra 500 mg PO PRN PRN 11/14/17 Strength] Apixaban [Eliquis] 5 mg PO BID 11/14/17 Omeprazole 20 mg PO DAILY 01/18/18 Prednisone [Prednisone] 60 mg PO DAILY 01/18/18 Smoking Status: Never smoker - *Family History Maternal History Items: Heart Disease Paternal History Items: Heart Disease Review of Systems Constitutional: Reports: Chills, Fever, Weakness Eyes: Denies: Blurred vision, Double vision HEENT: Denies: Head Aches, Sinus Congestion, Sinus Drainage Cardiovascular: Denies: Chest Pain, Palpitations Respiratory: Reports: Shortness of Breath Gastrointestinal: Denies: Abdominal Pain, Nausea, Vomiting Genitourinary: Denies: Dysuria Musculoskeletal: Denies: Joint Pain, Joint Tenderness Skin: Reports: Rash, Skin Changes Neurological: Denies: Numbness, Tingling, Focal weakness Psychiatric: Denies: Anxiety, Depression, Homicidal Ideations, Suicidal Ideations Hematologic/ Lymphatic: Reports: Anemia, Hx of blood transfusion Patient Problems: Active and Suspected Problems (Last Reviewed 01/11/18 @ 08:40 by Shirley Pearce) Anemia (Acute) Objective: The patient's most recent lab work, culture data and imaging studies have all been personally reviewed. Blood and urine cultures are currently pending. Respiratory viral and sputum culture are also pending. - Physical Exam General: Alert, Cooperative, No apparent distress, - - Pale in appearance HEENT: Atraumatic, PERRLA, Normocephalic Oral: No Gingival or Mucosal Lesions/ Ulcerations Neck: Supple, No Nodes, Trachea Midline Lungs: No rhonchi, No wheeze, Diminished, Rales Cardiovascular: Regular rate, Regular Rhythm, Normal S1, Normal S2, Murmur, No rub noted, No Gallop Abdomen: Bowel Sounds Present, Soft, Non Tender, Obese Extremities: No clubbing, No cyanosis, No edema Skin: - - Petechial lower extremity rash, along with pretibial hyperpigmentation Musculoskeletal: No Muscle Wasting Lymphatic: No Cervical, Supraclavicular, or Inguinal Adenopathy Neurological: Neuro grossly intact Psych/Mental Status: Normal Affect, Appropriate Vital Signs Temp Pulse Resp BP Pulse Ox 101.1 F H 95 16 122/84 H 95 01/18/18 09:06 01/18/18 12:30 01/18/18 12:30 01/18/18 12:30 01/18/18 12:30 Oxygen Delivery Method Room Air Labs (Last 48 Hours) 01/18/18 01/18/18 01/18/18 09:40 09:40 09:40 WBC 14.1 H RBC 2.81 L Hgb 7.4 L Hct 24.4 L MCV 86.8 MCH 26.3 L MCHC 30.3 L RDW 19.0 H RDW Differential 56.0 H Plt Count 142 L MPV 8.3 Immature Gran % (Auto) 0.400 Neut % (Auto) 93.0 H Lymph % (Auto) 2.8 L [place] % (Auto) 3.8 Eos % (Auto) 0.0 Baso % (Auto) 0.0 Absolute Neuts (auto) 13.1 H Absolute Lymphs (auto) 0.40 L Total Counted Not Reportable Polychromasia 1+ Anisocytosis 1+ Ovalocytes 2+ Sodium 148 H Potassium 3.6 Chloride 117 H Carbon Dioxide 19.0 L Anion Gap 12 BUN 46 H Creatinine 1.72 H Estim Creat Clear Calc 46.21 Est GFR (MDRD) Af Amer 52 L Est GFR (MDRD) Non-Af 43 L BUN/Creatinine Ratio 26.7 H Glucose 108 H Lactic Acid 4.0 H* Calcium 7.8 L Total Bilirubin 1.00 AST 17 ALT 27 Alkaline Phosphatase 57 Troponin I 0.13 H B-Natriuretic Peptide Total Protein 6.6 Albumin 2.6 L Globulin 4.0 Albumin/Globulin Ratio 0.6 L Urine Color Urine Clarity Urine pH Ur Specific [place] Urine Protein Urine Glucose (UA) Urine Ketones Urine Occult Blood Urine Nitrite Urine Bilirubin Urine Urobilinogen Ur Leukocyte Esterase Urine RBC Urine WBC Ur Squamous Epith Cells Urine Bacteria Hyaline Casts Fine Granular Casts Urine Mucus Blood Type Antibody Screen 01/18/18 01/18/18 01/18/18 09:40 10:33 10:33 WBC RBC Hgb Hct MCV MCH MCHC RDW RDW Differential Plt Count MPV Immature Gran % (Auto) Neut % (Auto) Lymph % (Auto) [place] % (Auto) Eos % (Auto) Baso % (Auto) Absolute Neuts (auto) Absolute Lymphs (auto) Total Counted Polychromasia Anisocytosis Ovalocytes Sodium Potassium Chloride Carbon Dioxide Anion Gap BUN Creatinine Estim Creat Clear Calc Est GFR (MDRD) Af Amer Est GFR (MDRD) Non-Af BUN/Creatinine Ratio Glucose Lactic Acid Calcium Total Bilirubin AST ALT Alkaline Phosphatase Troponin I B-Natriuretic Peptide 850.1 H Total Protein Albumin Globulin Albumin/Globulin Ratio Urine Color Yellow Urine Clarity Sl. Cloudy Urine pH 6.0 Ur Specific [place] 1.010 Urine Protein 100 H Urine Glucose (UA) Normal Urine Ketones Negative Urine Occult Blood 250 H Urine Nitrite Negative Urine Bilirubin Negative Urine Urobilinogen Normal Ur Leukocyte Esterase 25 H Urine RBC 10-25 SEEN Urine WBC 0-5 SEEN Ur Squamous Epith Cells 0-5 SEEN Urine Bacteria 1+ Hyaline Casts 0-5 SEEN Fine Granular Casts 0-5 SEEN Urine Mucus RARE Blood Type B POSITIVE Antibody Screen NEGATIVE Microbiology 01/18/18 09:41 Mucosa - Nose Influenza Types A,B Direct FA (SHAY) - Final Clinical Impression(s) from Imaging Studies Chest X-Ray 01/18/18 09:27 IMPRESSION: Findings are in keeping with a mild degree of CHF. Electronically Signed: Antoni Lawson MD at 9:54 EDT Tel [phone], Service support , Chest CT 01/18/18 11:22 IMPRESSION: Small bilateral pleural effusions. Findings suggest a mild degree of CHF. Small pericardial effusion. Electronically Signed: Antoni Lawson MD at 12:41 EDT Tel [phone], Service support , Assessment/Plan Active and Suspected Problems (Last Reviewed 01/11/18 @ 08:40 by Shirley Pearce) Anemia (Acute) RECOMMENDATIONS: 1. Discontinue aztreonam, as the patient is not penicillin allergic. 2. Start vancomycin and Zosyn, pending infectious workup 3. Obtain respiratory viral panel, along with urine and sputum culture. 4. Obtain echocardiogram 5. Trend troponins. 6. Recheck serum lactate level 7. Start IV PPI therapy twice daily 8. Stop normal saline, given rising sodium and chloride. Start D5W supplemental IV fluids IMPRESSIONS: 1. Acute hypoxemic respiratory insufficiency Concern for underlying diastolic dysfunction with decompensation leading to shortness of breath versus atypical pulmonary infectious process. The patient did have an elevated white blood cell count on presentation to the hospital. However, he has been on steroids for the past week. He additionally had a low-grade fever and tachypnea. Therefore, the patient was placed on antibiotics, pending infectious workup. The patient will also receive diuretics and a surface echocardiogram will be obtained. Respiratory viral panel will be collected to rule out atypical viral infection. Will wean supplemental oxygen to maintain saturations at or above 90%. Strong clinical suspicion that the patient's shortness of breath is most likely due to his acute on chronic anemia. 2. Concern for underlying decompensated diastolic dysfunction Continue to provide supportive measures as noted above. Echocardiogram is pending. Diuresis as tolerated. 3. Acute on chronic anemia with concern for gastrointestinal blood loss The patient did have an upper endoscopy in October which showed small superficial ulcerations. The patient has since been started on Eliquis and has had a slow downward decline in his baseline, chronic anemia. He will receive 1 unit of packed red blood cells accordingly in an attempt to maintain a hemoglobin at or above 8 g/dL. Check H&H posttransfusion. May need to consider repeat endoscopy. The patient will be placed on PPI therapy. 4. Acute kidney injury Unclear etiology at this time. Nephrology has been consulted. DELMY inhibitor is on hold. Supplemental IV fluids will be continued. 5. Recent history of pulmonary embolism The patient has been on Eliquis therapy. This may require eventual interruption, given his acute on chronic anemia. 6. 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 However, it is only been a week since it was started. Given the patient's gastrointestinal issues, would prefer to hold steroids at this time. 7. Hypertension/hypothyroidism/mitral valve prolapse Complicates care, management, recovery and prognosis. Continue to hold DELMY inhibitor. Consider alternative antihypertensive regimen. This note was generated with eMlania dictation software. It may contain incorrect words, spelling, and punctuation that were not noted in checking the note before signing. Code Visit Inpatient E&M: 79788 Init Hosp L3
--- NOTE | 2018-01-18 13:18 | CON.PCM_ITS ---
Reason for Consult Date of Consultation: 01/18/18 Reason for Consultation: Severe sepsis History of Present Illness: The patient is a 62-year-old male, with a history as outlined below, who presented to the emergency department on January 18 with complaints of shortness of breath, fevers and chills. The patient has chronic anemia, having undergone an upper and lower endoscopy in October 2017 which showed areas of gastritis. He was also recently diagnosed with bilateral pulmonary emboli in October 2017, for which she is being treated with Eliquis. He is currently being followed by Dr. 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 On presentation to the emergency department, the patient was noted to be febrile , tachycardic and hypertensive. He was initially noted to be tachypneic and hypoxic. Initial laboratory evaluation revealed elevated white blood cell count 14,000. There is evidence of anemia with a hemoglobin of 7.4. The patient appears to have had a slow downward decline in his baseline hemoglobin level since October 2017. Chemistry profile was notable for a sodium of 148, chloride of 117, bicarbonate of 19 and evidence of acute kidney injury with a creatinine of 1.72. Serum lactate was elevated to 4.0. Troponin was elevated to 0.13 with a BNP of 850. Plain film chest x-ray revealed a mild degree of pulmonary vascular congestion. Follow-up CT scan revealed groundglass airspace opacities bilaterally with small bilateral pleural effusions consistent with CHF. The patient was started on maintenance IV fluid hydration and was given Zosyn. Past Medical History Past Medical History (Chronic Problems): Chronic Problems (Last Reviewed 01/11/18 @ 08:40 by Shirley Pearce) Umbilical hernia without mention of obstruction or gangrene (Chronic) Segmental and somatic dysfunction of lumbar region (Chronic) Weight loss, unintentional (Chronic) Anemia (Chronic) Nausea (Chronic) Hypoalbuminemia (Chronic) Compound heterozygous MTHFR mutation [id number] (Chronic) MGUS (monoclonal gammopathy of unknown significance) (Chronic) Cryoglobulinemia (Chronic) Segmental and somatic dysfunction of pelvic region (Chronic) Segmental and somatic dysfunction of thoracic region (Chronic) DDD (degenerative disc disease), lumbar (Chronic) Allergies pravastatin Adverse Reaction (Severe, Verified 01/11/18 08:41) SEVERE MUSCLE CRAMPING Home Medications: Ambulatory Orders Medication Instructions Recorded Levothyroxine [Synthroid] 25 mcg PO DAILY 05/17/16 Lisinopril [Zestril] 10 mg PO DAILY 05/17/16 Metoprolol Tartrate [Lopressor 50 mg PO BID 05/17/16 ([facility])] Atropine Sulfate in 0.9% NaCl 10 ml LEFT EYE DAILY 10/30/17 [Atropine 0.01%-Ns Eye Drops] prednisoLONE eye drops (1 mL) 1 drop LEFT EYE BID 10/30/17 [Pred Forte 1 ml] Acetaminophen [Tylenol Extra 500 mg PO PRN PRN 11/14/17 Strength] Apixaban [Eliquis] 5 mg PO BID 11/14/17 Omeprazole 20 mg PO DAILY 01/18/18 Prednisone [Prednisone] 60 mg PO DAILY 01/18/18 Smoking Status: Never smoker - *Family History Maternal History Items: Heart Disease Paternal History Items: Heart Disease Review of Systems Constitutional: Reports: Chills, Fever, Weakness Eyes: Denies: Blurred vision, Double vision HEENT: Denies: Head Aches, Sinus Congestion, Sinus Drainage Cardiovascular: Denies: Chest Pain, Palpitations Respiratory: Reports: Shortness of Breath Gastrointestinal: Denies: Abdominal Pain, Nausea, Vomiting Genitourinary: Denies: Dysuria Musculoskeletal: Denies: Joint Pain, Joint Tenderness Skin: Reports: Rash, Skin Changes Neurological: Denies: Numbness, Tingling, Focal weakness Psychiatric: Denies: Anxiety, Depression, Homicidal Ideations, Suicidal Ideations Hematologic/ Lymphatic: Reports: Anemia, Hx of blood transfusion Patient Problems: Active and Suspected Problems (Last Reviewed 01/11/18 @ 08:40 by Shirley Pearce) Anemia (Acute) Objective: The patient's most recent lab work, culture data and imaging studies have all been personally reviewed. Blood and urine cultures are currently pending. Respiratory viral and sputum culture are also pending. - Physical Exam General: Alert, Cooperative, No apparent distress, - - Pale in appearance HEENT: Atraumatic, PERRLA, Normocephalic Oral: No Gingival or Mucosal Lesions/ Ulcerations Neck: Supple, No Nodes, Trachea Midline Lungs: No rhonchi, No wheeze, Diminished, Rales Cardiovascular: Regular rate, Regular Rhythm, Normal S1, Normal S2, Murmur, No rub noted, No Gallop Abdomen: Bowel Sounds Present, Soft, Non Tender, Obese Extremities: No clubbing, No cyanosis, No edema Skin: - - Petechial lower extremity rash, along with pretibial hyperpigmentation Musculoskeletal: No Muscle Wasting Lymphatic: No Cervical, Supraclavicular, or Inguinal Adenopathy Neurological: Neuro grossly intact Psych/Mental Status: Normal Affect, Appropriate Vital Signs Temp Pulse Resp BP Pulse Ox 101.1 F H 95 16 122/84 H 95 01/18/18 09:06 01/18/18 12:30 01/18/18 12:30 01/18/18 12:30 01/18/18 12:30 Oxygen Delivery Method Room Air Labs (Last 48 Hours) 01/18/18 01/18/18 01/18/18 09:40 09:40 09:40 WBC 14.1 H RBC 2.81 L Hgb 7.4 L Hct 24.4 L MCV 86.8 MCH 26.3 L MCHC 30.3 L RDW 19.0 H RDW Differential 56.0 H Plt Count 142 L MPV 8.3 Immature Gran % (Auto) 0.400 Neut % (Auto) 93.0 H Lymph % (Auto) 2.8 L [place] % (Auto) 3.8 Eos % (Auto) 0.0 Baso % (Auto) 0.0 Absolute Neuts (auto) 13.1 H Absolute Lymphs (auto) 0.40 L Total Counted Not Reportable Polychromasia 1+ Anisocytosis 1+ Ovalocytes 2+ Sodium 148 H Potassium 3.6 Chloride 117 H Carbon Dioxide 19.0 L Anion Gap 12 BUN 46 H Creatinine 1.72 H Estim Creat Clear Calc 46.21 Est GFR (MDRD) Af Amer 52 L Est GFR (MDRD) Non-Af 43 L BUN/Creatinine Ratio 26.7 H Glucose 108 H Lactic Acid 4.0 H* Calcium 7.8 L Total Bilirubin 1.00 AST 17 ALT 27 Alkaline Phosphatase 57 Troponin I 0.13 H B-Natriuretic Peptide Total Protein 6.6 Albumin 2.6 L Globulin 4.0 Albumin/Globulin Ratio 0.6 L Urine Color Urine Clarity Urine pH Ur Specific [place] Urine Protein Urine Glucose (UA) Urine Ketones Urine Occult Blood Urine Nitrite Urine Bilirubin Urine Urobilinogen Ur Leukocyte Esterase Urine RBC Urine WBC Ur Squamous Epith Cells Urine Bacteria Hyaline Casts Fine Granular Casts Urine Mucus Blood Type Antibody Screen 01/18/18 01/18/18 01/18/18 09:40 10:33 10:33 WBC RBC Hgb Hct MCV MCH MCHC RDW RDW Differential Plt Count MPV Immature Gran % (Auto) Neut % (Auto) Lymph % (Auto) [place] % (Auto) Eos % (Auto) Baso % (Auto) Absolute Neuts (auto) Absolute Lymphs (auto) Total Counted Polychromasia Anisocytosis Ovalocytes Sodium Potassium Chloride Carbon Dioxide Anion Gap BUN Creatinine Estim Creat Clear Calc Est GFR (MDRD) Af Amer Est GFR (MDRD) Non-Af BUN/Creatinine Ratio Glucose Lactic Acid Calcium Total Bilirubin AST ALT Alkaline Phosphatase Troponin I B-Natriuretic Peptide 850.1 H Total Protein Albumin Globulin Albumin/Globulin Ratio Urine Color Yellow Urine Clarity Sl. Cloudy Urine pH 6.0 Ur Specific [place] 1.010 Urine Protein 100 H Urine Glucose (UA) Normal Urine Ketones Negative Urine Occult Blood 250 H Urine Nitrite Negative Urine Bilirubin Negative Urine Urobilinogen Normal Ur Leukocyte Esterase 25 H Urine RBC 10-25 SEEN Urine WBC 0-5 SEEN Ur Squamous Epith Cells 0-5 SEEN Urine Bacteria 1+ Hyaline Casts 0-5 SEEN Fine Granular Casts 0-5 SEEN Urine Mucus RARE Blood Type B POSITIVE Antibody Screen NEGATIVE Microbiology 01/18/18 09:41 Mucosa - Nose Influenza Types A,B Direct FA (SHAY) - Final Clinical Impression(s) from Imaging Studies Chest X-Ray 01/18/18 09:27 IMPRESSION: Findings are in keeping with a mild degree of CHF. Electronically Signed: Antoni Lawson MD at 9:54 EDT Tel [phone], Service support , Chest CT 01/18/18 11:22 IMPRESSION: Small bilateral pleural effusions. Findings suggest a mild degree of CHF. Small pericardial effusion. Electronically Signed: Antoni Lawson MD at 12:41 EDT Tel [phone], Service support , Assessment/Plan Active and Suspected Problems (Last Reviewed 01/11/18 @ 08:40 by Shirley Pearce) Anemia (Acute) RECOMMENDATIONS: 1. Discontinue aztreonam, as the patient is not penicillin allergic. 2. Start vancomycin and Zosyn, pending infectious workup 3. Obtain respiratory viral panel, along with urine and sputum culture. 4. Obtain echocardiogram 5. Trend troponins. 6. Recheck serum lactate level 7. Start IV PPI therapy twice daily 8. Stop normal saline, given rising sodium and chloride. Start D5W supplemental IV fluids IMPRESSIONS: 1. Acute hypoxemic respiratory insufficiency Concern for underlying diastolic dysfunction with decompensation leading to shortness of breath versus atypical pulmonary infectious process. The patient did have an elevated white blood cell count on presentation to the hospital. However, he has been on steroids for the past week. He additionally had a low- grade fever and tachypnea. Therefore, the patient was placed on antibiotics, pending infectious workup. The patient will also receive diuretics and a surface echocardiogram will be obtained. Respiratory viral panel will be collected to rule out atypical viral infection. Will wean supplemental oxygen to maintain saturations at or above 90%. Strong clinical suspicion that the patient's shortness of breath is most likely due to his acute on chronic anemia. 2. Concern for underlying decompensated diastolic dysfunction Continue to provide supportive measures as noted above. Echocardiogram is pending. Diuresis as tolerated. 3. Acute on chronic anemia with concern for gastrointestinal blood loss The patient did have an upper endoscopy in October which showed small superficial ulcerations. The patient has since been started on Eliquis and has had a slow downward decline in his baseline, chronic anemia. He will receive 1 unit of packed red blood cells accordingly in an attempt to maintain a hemoglobin at or above 8 g/dL. Check H&H posttransfusion. May need to consider repeat endoscopy. The patient will be placed on PPI therapy. 4. Acute kidney injury Unclear etiology at this time. Nephrology has been consulted. DELMY inhibitor is on hold. Supplemental IV fluids will be continued. 5. Recent history of pulmonary embolism The patient has been on Eliquis therapy. This may require eventual interruption , given his acute on chronic anemia. 6. 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 However, it is only been a week since it was started. Given the patient's gastrointestinal issues, would prefer to hold steroids at this time. 7. Hypertension/hypothyroidism/mitral valve prolapse Complicates care, management, recovery and prognosis. Continue to hold DELMY inhibitor. Consider alternative antihypertensive regimen. This note was generated with Melania dictation software. It may contain incorrect words, spelling, and punctuation that were not noted in checking the note before signing. Code Visit Inpatient E&M: 94209 Init Hosp L3
--- NOTE | 2018-01-18 13:32 | ECHOD_ITS ---
Reason For Study: DYSPNEA Procedure This was a 2D Doppler, Color Flow transthoracic echocardiogram. The study was technically difficult. Exam performed portable in ICU/CCU. Left Ventricle Normal LV size. Left ventricular systolic function is normal. The estimated ejection fraction is 65 %. No regional wall motion abnormalities noted. Right Ventricle Normal RV size. Normal systolic function. Atria The left atrium is moderately enlarged. Normal right atrium. No doppler evidence for ASD. Mitral Valve There is no mitral annular calcification. Moderate diffuse mitral valve thickening. Moderate mitral valve prolapse. Mild-Moderate (1-2+) eccentric mitral valve insufficiency. Tricuspid Valve Normal tricuspid valve. Mild tricuspid valve insufficiency. Right ventricular systolic pressure estimated to be 38 mmHg. Aortic Valve Trisinus/trileaflet aortic valve. Mild focal aortic valve thickening. Pulmonic Valve The pulmonic valve is not well visualized. Mild-Moderate (1-2+) pulmonic valve insufficiency. Great Vessels The ascending aorta is mildly dilated. Pericardium/Pleural Trivial pericardial effusion. There are no echocardiographic indications of cardiac tamponade. MMode/2D Measurements & Calculations LVIDd: 5.8 cm IVSd: 0.99 cm Ao root diam: 4.3 cm LVIDs: 3.4 cm LVPWd: 1.1 cm LA dimension: 3.7 cm RVDd: 3.4 cm FS: 41.5 % EDV(MOD-sp4): 152.9 ml EDV(MOD-sp2): 163.5 ml SV(MOD-sp4): 89.4 ml ESV(MOD-sp4): 63.6 ml EF(MOD-sp2): 54.7 % EF(MOD-sp4): 58.4 % SV(MOD-sp2): 89.5 ml LA A4 area: 30.5 cm2 RA A4 area: 16.2 cm2 Doppler Measurements & Calculations MV E max nimo: 157.0 cm/sec Ao V2 max: 141.7 cm/sec LV V1 max: 128.8 cm/sec MV A max nimo: 76.1 cm/sec Ao max P.0 mmHg LV V1 max P.6 mmHg MV E/A: 2.1 PA V2 max: 90.4 cm/sec PI end-d nimo: 139.1 cm/sec TR max nimo: 294.6 cm/sec TR max P.8 mmHg Interpretation Summary The study was technically difficult. Left ventricular systolic function is normal. The estimated ejection fraction is 65 %. The left atrium is moderately enlarged. Moderate diffuse mitral valve thickening. Moderate mitral valve prolapse. Mild-Moderate (1-2+) eccentric mitral valve insufficiency. Mild tricuspid valve insufficiency. Mild focal aortic valve thickening. Mild-Moderate (1-2+) pulmonic valve insufficiency. The ascending aorta is mildly dilated. Trivial pericardial effusion. There are no echocardiographic indications of cardiac tamponade. Right ventricular systolic pressure estimated to be 38 mmHg. Transmitral diastolic flow velocities suggest diastolic dysfunction. Based upon the 2D echocardiographic images obtained a partially flail / ruptured mitral valve chordae tendonae or partially flail posterior mitral valve leaflet cannot be excluded. Consider further evaluation with TAYLOR if clinically indicated. Ordering Physician: Slade Brown, D.O. Referring Physician: Wade Arce Chi Performed By: Meryl Parra, DIANE, RVT
[2018-01-18 13:44] LABS: Immature Platelet Fraction 1.3 % (1.0-7.9); RET-HE 29.8 pg (30-35); Reticulocyte Count 3.47 % (0.5-1.5)
[2018-01-18 13:51] LABS: Reflex Lactate? Y
[2018-01-18 13:55] LABS: Ferritin 1132 ng/mL (26-388); Iron 12 ug/dL (65-175); Iron Binding Capacity,Total 172 ug/dL (250-450)
[2018-01-18 14:03] LABS: International Normalized Ratio 1.5; Prothrombin Time (Protime)PT. 18.1 SECONDS (11.7-14.9)
[2018-01-18 14:04] LABS: Partial Thromboplast Time 30.6 Seconds (24.1-36.2)
[2018-01-18 14:06] LABS: Lactic Acid 1.8 mmol/L (0.4-2.0)
--- NOTE | 2018-01-18 14:08 | PCM.CONS.R ---
Consultation - Renal 01/18/18 PCP/ Referring MD: Requesting physician: Donavon Waggoner Primary care physician: Wade Arce Reason for Consultation:: LAYLA - History of Present Illness History of Present Illness: The patient is a 62 year old M presented to the ER today with complaints of worsening shortness of breath, fevers and chills Tmax 101. He had transient shortness of breath lasting 10 min in the morning until today that persisted. [place] like he couldn't catch his breath. He has a history of 45# weight loss since Aug 2017, progressive decline in health with anemia hgb at 8.0 in December now at 7.4g. His GI workup was significant for gastritis. He has a history of bilateral PE in Oct 2017 treated with Eliquis. 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 He developed a palpable, purpuric rash about 2 weeks ago that is less intense after started on oral prednisone by hematology recommendation about a week ago. He has been feeling better after initiation of steroid therapy with improved insatiable appetite. He denied chest pain or pressure. Denied hemoptysis, hematochezia, melena. He noticed orange colored urine. Denied tea-colored urine or hematuria. WBC was elevated at 14K, lactic acid 4.0. CXR showed pulmonary vascular congestion with CT chest showing ground-glass airspace opacities with small bilateral pleural effusions. He was started on iv zosyn and vancomycin. Influenza was negative, blood cx sent. Consulted for LAYLA. Baseline creatinine was 0.76 on 10/19/17 progressed to 1.01 on 11/29, 1.29 on 12/21, 1.18 on 12/27, 1.28 on 01/04, 1.72 on 01/18. BP has been stable. He was on lisinopril that has been discontinued on admit. He is receiving iv fluids. Urinalysis showed proteinuria with hematuria. LAVON positive on 12/27/17 with ANCA negative. FH negative for kidney disease, vasculitis. Mother with hx of aortic aneurysm. - Allergies Allergies: Allergies pravastatin Adverse Reaction (Severe, Verified 01/11/18 08:41) SEVERE MUSCLE CRAMPING - Current Medications Current Medications: Current Medications Bisacodyl (Dulcolax) 5 mg PO DAILY PRN PRN PRN Reason: Constipation Chlorhexidine Gluconate () 1 each TOPICAL DAILY RONNI Vancomycin HCl 2,000 mg/ (Sodium Chloride) 540 mls @ 260 mls/hr IV X1 ONE Stop: 01/18/18 16:34 Piperacillin Sod/Tazobactam (Sod 3.375 gm/ Sodium Chloride) 50 mls @ 12.5 mls/hr IV Q8 RONNI Sodium Chloride () 1,000 mls @ 150 mls/hr IV .Q6H40M RONNI Magnesium Hydroxide (Milk Of Magnesia) 30 ml PO DAILY PRN PRN PRN Reason: Constipation Psyllium Hydrophilic Mucilloid (Metamucil) 1 packet PO DAILY PRN PRN PRN Reason: CONSTIPATION Sodium Chloride () 5 - 30 ml IV UD PRN PRN Reason: SALINE FLUSH - Past Medical History Past Medical History (Chronic Problems): Chronic Problems (Last Reviewed 01/11/18 @ 08:40 by Shirley Pearce) Umbilical hernia without mention of obstruction or gangrene (Chronic) Segmental and somatic dysfunction of lumbar region (Chronic) Weight loss, unintentional (Chronic) Anemia (Chronic) Nausea (Chronic) Hypoalbuminemia (Chronic) Compound heterozygous MTHFR mutation [id number] (Chronic) MGUS (monoclonal gammopathy of unknown significance) (Chronic) Cryoglobulinemia (Chronic) Segmental and somatic dysfunction of pelvic region (Chronic) Segmental and somatic dysfunction of thoracic region (Chronic) DDD (degenerative disc disease), lumbar (Chronic) - Past Surgical History Surgical History: cataract - Social History Marital Status: Smoking Status: Never smoker - Family History Maternal Family History: Family History (Last Updated 01/11/18 @ 08:55 by Shirley Pearce) Father Prostate cancer Heart disease Cancer Daughter Asthma Mother Aorta aneurysm History Items: Heart Disease Paternal Family History: Family History (Last Updated 01/11/18 @ 08:55 by Shirley Pearce) Father Prostate cancer Heart disease Cancer Daughter Asthma Mother Aorta aneurysm History Items: Heart Disease Review of Systems Constitutional: Reports: Anorexia - improved after prednisone therapy, Chills, Fever, Weakness, Weight Change - 45# wt loss since August 2017 Eyes: Reports: Blurred vision HEENT: Denies: Head Aches Cardiovascular: Denies: Chest Pain, Edema, Palpitations, Syncope Respiratory: Reports: Shortness of breath at rest, Shortness of breath upon exertion. Denies: Cough, Hemoptysis Gastrointestinal: Reports: - - hx early satiety prior to prednisone therapy, now with improved appetite. Denies: Abdominal Pain, Diarrhea, Hematemesis, Hematochezia, Nausea, Vomiting Genitourinary: Reports: - - dark, orange colored urine. Denies: Dysuria, Retention Musculoskeletal: Denies: Arm Pain, Back Pain, Leg Pain Skin: Reports: Lesions - skin changes in legs, no raynauds syndrome, Rash - BLE Neurological: Denies: Balance problems, Difficulty swallowing, Numbness, Tremor, Seizures Psychiatric: Reports: Depression Hematologic/ Lymphatic: Reports: Anemia, Purpura, Hx of blood clot - PE Oct 2017 - Physical Exam General: Alert, Oriented x3, Cooperative, No apparent distress, Well developed, Well nourished Oral: Dry Mucosa Neck: Supple, No JVD Lungs: Clear to auscultation, Diminished Cardiovascular: Regular rate Abdomen: Bowel Sounds Present, Soft, Non Tender, Non-Distended Extremities: No edema Skin: - - skin pigmentation on BLE Musculoskeletal: No Muscle Wasting Neurological: Cranial nerves II-XII grossly intact Psych/Mental Status: Depressed, Alert and oriented to time, place, person, mood and affect Vital Signs Temp Pulse Resp BP Pulse Ox 99.5 F H 86 20 H 122/82 H 97 01/18/18 13:53 01/18/18 13:53 01/18/18 13:53 01/18/18 13:53 01/18/18 13:53 Oxygen Flow Rate (L/min) 2 Oxygen Delivery Method Nasal Cannula Laboratory Tests Past 24 Hrs 01/18/18 01/18/18 01/18/18 13:24 13:24 13:24 Immature Plt Fraction 1.3 Retic Count 3.47 H Immature Retic Fraction 11.20 Retic Hgb Equivalent 29.8 L PT INR APTT Lactic Acid 1.8 Iron 12 L TIBC 172 L Iron Saturation 7.0 L Ferritin 1132 H Vitamin B12 MRSA (PCR) 01/18/18 01/18/18 01/18/18 13:40 13:40 13:40 Immature Plt Fraction Retic Count Immature Retic Fraction Retic Hgb Equivalent PT 18.1 H INR 1.5 APTT 30.6 Lactic Acid Iron TIBC Iron Saturation Ferritin Vitamin B12 Pending MRSA (PCR) Pending 01/18/18 13:40 Immature Plt Fraction Retic Count Immature Retic Fraction Retic Hgb Equivalent PT INR APTT Lactic Acid Iron TIBC Iron Saturation Ferritin Vitamin B12 MRSA (PCR) Pending Clinical Impression(s) from Imaging Studies Chest X-Ray 01/18/18 09:27 IMPRESSION: Findings are in keeping with a mild degree of CHF. Electronically Signed: Antoni Lawson MD at 9:54 EDT Tel [phone], Service support , Chest CT 01/18/18 11:22 IMPRESSION: Small bilateral pleural effusions. Findings suggest a mild degree of CHF. Small pericardial effusion. Electronically Signed: Antoni Lawson MD at 12:41 EDT Tel [phone], Service support , Microbiology 01/18/18 09:41 Influenza Types A,B Direct FA ([facility]) - Final Mucosa - Nose Assessment/Plan 1. LAYLA check urine sodium, creatinine for FENA. Agree with iv fluids and holding ACEI for now. Baseline creatinine 0.7 in Oct 2017, progressed to 1.2 in December, now at 1.72. Consider renal biopsy if renal fxn does not improve to determine if has renal failure from vasculitis, cryoglobulinemia. LAVON positive, ANCA <1:20. 2. Cryoglobulinemia with skin rash on high dose prednisone x1 wk followed by hematology. Had appt with rheumatology as outpt next week. 3. Fever with leukocytosis on empiric antibx therapy. Cx pending. Fever may be from vasculitis if remains cx negative. May need plasmapheresis vs immunosuppressive therapy like rituxan or cyclophosphamide. Continue with steroid therapy. 4. SOB with airspace disease. Consider vasculitis involving lungs. 5. Severe iron def anemia hgb 7.4g today. 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 Suggest iv iron therapy. 6. Pulm Embolus on eliquis 7. HTN hold lisinopril. Resume home meds 8. Hypothyroid.
--- NOTE | 2018-01-18 14:18 | CON.PCM_ITS ---
Consultation - Renal 01/18/18 PCP/ Referring MD: Requesting physician: Donavon Waggoner Primary care physician: aWde Arce Reason for Consultation:: LAYLA - History of Present Illness History of Present Illness: The patient is a 62 year old M presented to the ER today with complaints of worsening shortness of breath, fevers and chills Tmax 101. He had transient shortness of breath lasting 10 min in the morning until today that persisted. [place] like he couldn't catch his breath. He has a history of 45# weight loss since Aug 2017, progressive decline in health with anemia hgb at 8.0 in December now at 7.4g. His GI workup was significant for gastritis. He has a history of bilateral PE in Oct 2017 treated with Eliquis. 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 He developed a palpable, purpuric rash about 2 weeks ago that is less intense after started on oral prednisone by hematology recommendation about a week ago. He has been feeling better after initiation of steroid therapy with improved insatiable appetite. He denied chest pain or pressure. Denied hemoptysis, hematochezia, melena. He noticed orange colored urine. Denied tea- colored urine or hematuria. WBC was elevated at 14K, lactic acid 4.0. CXR showed pulmonary vascular congestion with CT chest showing ground-glass airspace opacities with small bilateral pleural effusions. He was started on iv zosyn and vancomycin. Influenza was negative, blood cx sent. Consulted for LAYLA. Baseline creatinine was 0.76 on 10/19/17 progressed to 1.01 on 11/29, 1.29 on 12/21, 1.18 on 12/27, 1.28 on 01/04, 1.72 on 01/18. BP has been stable. He was on lisinopril that has been discontinued on admit. He is receiving iv fluids. Urinalysis showed proteinuria with hematuria. LAVON positive on 12/27/17 with ANCA negative. FH negative for kidney disease, vasculitis. Mother with hx of aortic aneurysm. - Allergies Allergies: Allergies pravastatin Adverse Reaction (Severe, Verified 01/11/18 08:41) SEVERE MUSCLE CRAMPING - Current Medications Current Medications: Current Medications Bisacodyl (Dulcolax) 5 mg PO DAILY PRN PRN PRN Reason: Constipation Chlorhexidine Gluconate () 1 each TOPICAL DAILY RONNI Vancomycin HCl 2,000 mg/ (Sodium Chloride) 540 mls @ 260 mls/hr IV X1 ONE Stop: 01/18/18 16:34 Piperacillin Sod/Tazobactam (Sod 3.375 gm/ Sodium Chloride) 50 mls @ 12.5 mls/ hr IV Q8 RONNI Sodium Chloride () 1,000 mls @ 150 mls/hr IV .Q6H40M RONNI Magnesium Hydroxide (Milk Of Magnesia) 30 ml PO DAILY PRN PRN PRN Reason: Constipation Psyllium Hydrophilic Mucilloid (Metamucil) 1 packet PO DAILY PRN PRN PRN Reason: CONSTIPATION Sodium Chloride () 5 - 30 ml IV UD PRN PRN Reason: SALINE FLUSH - Past Medical History Past Medical History (Chronic Problems): Chronic Problems (Last Reviewed 01/11/18 @ 08:40 by Shirley Pearce) Umbilical hernia without mention of obstruction or gangrene (Chronic) Segmental and somatic dysfunction of lumbar region (Chronic) Weight loss, unintentional (Chronic) Anemia (Chronic) Nausea (Chronic) Hypoalbuminemia (Chronic) Compound heterozygous MTHFR mutation [id number] (Chronic) MGUS (monoclonal gammopathy of unknown significance) (Chronic) Cryoglobulinemia (Chronic) Segmental and somatic dysfunction of pelvic region (Chronic) Segmental and somatic dysfunction of thoracic region (Chronic) DDD (degenerative disc disease), lumbar (Chronic) - Past Surgical History Surgical History: cataract - Social History Marital Status: Smoking Status: Never smoker - Family History Maternal Family History: Family History (Last Updated 01/11/18 @ 08:55 by Shirley Pearce) Father Prostate cancer Heart disease Cancer Daughter Asthma Mother Aorta aneurysm History Items: Heart Disease Paternal Family History: Family History (Last Updated 01/11/18 @ 08:55 by Shirley Pearce) Father Prostate cancer Heart disease Cancer Daughter Asthma Mother Aorta aneurysm History Items: Heart Disease Review of Systems Constitutional: Reports: Anorexia - improved after prednisone therapy, Chills, Fever, Weakness, Weight Change - 45# wt loss since August 2017 Eyes: Reports: Blurred vision HEENT: Denies: Head Aches Cardiovascular: Denies: Chest Pain, Edema, Palpitations, Syncope Respiratory: Reports: Shortness of breath at rest, Shortness of breath upon exertion. Denies: Cough, Hemoptysis Gastrointestinal: Reports: - - hx early satiety prior to prednisone therapy, now with improved appetite. Denies: Abdominal Pain, Diarrhea, Hematemesis, Hematochezia, Nausea, Vomiting Genitourinary: Reports: - - dark, orange colored urine. Denies: Dysuria, Retention Musculoskeletal: Denies: Arm Pain, Back Pain, Leg Pain Skin: Reports: Lesions - skin changes in legs, no raynauds syndrome, Rash - BLE Neurological: Denies: Balance problems, Difficulty swallowing, Numbness, Tremor , Seizures Psychiatric: Reports: Depression Hematologic/ Lymphatic: Reports: Anemia, Purpura, Hx of blood clot - PE Oct 2017 - Physical Exam General: Alert, Oriented x3, Cooperative, No apparent distress, Well developed, Well nourished Oral: Dry Mucosa Neck: Supple, No JVD Lungs: Clear to auscultation, Diminished Cardiovascular: Regular rate Abdomen: Bowel Sounds Present, Soft, Non Tender, Non-Distended Extremities: No edema Skin: - - skin pigmentation on BLE Musculoskeletal: No Muscle Wasting Neurological: Cranial nerves II-XII grossly intact Psych/Mental Status: Depressed, Alert and oriented to time, place, person, mood and affect Vital Signs Temp Pulse Resp BP Pulse Ox 99.5 F H 86 20 H 122/82 H 97 01/18/18 13:53 01/18/18 13:53 01/18/18 13:53 01/18/18 13:53 01/18/18 13:53 Oxygen Flow Rate (L/min) 2 Oxygen Delivery Method Nasal Cannula Laboratory Tests Past 24 Hrs 01/18/18 01/18/18 01/18/18 13:24 13:24 13:24 Immature Plt Fraction 1.3 Retic Count 3.47 H Immature Retic Fraction 11.20 Retic Hgb Equivalent 29.8 L PT INR APTT Lactic Acid 1.8 Iron 12 L TIBC 172 L Iron Saturation 7.0 L Ferritin 1132 H Vitamin B12 MRSA (PCR) 01/18/18 01/18/18 01/18/18 13:40 13:40 13:40 Immature Plt Fraction Retic Count Immature Retic Fraction Retic Hgb Equivalent PT 18.1 H INR 1.5 APTT 30.6 Lactic Acid Iron TIBC Iron Saturation Ferritin Vitamin B12 Pending MRSA (PCR) Pending 01/18/18 13:40 Immature Plt Fraction Retic Count Immature Retic Fraction Retic Hgb Equivalent PT INR APTT Lactic Acid Iron TIBC Iron Saturation Ferritin Vitamin B12 MRSA (PCR) Pending Clinical Impression(s) from Imaging Studies Chest X-Ray 01/18/18 09:27 IMPRESSION: Findings are in keeping with a mild degree of CHF. Electronically Signed: Antoni Lawson MD at 9:54 EDT Tel [phone], Service support , Chest CT 01/18/18 11:22 IMPRESSION: Small bilateral pleural effusions. Findings suggest a mild degree of CHF. Small pericardial effusion. Electronically Signed: Antoni Lawson MD at 12:41 EDT Tel [phone], Service support , Microbiology 01/18/18 09:41 Influenza Types A,B Direct FA ([facility]) - Final Mucosa - Nose Assessment/Plan 1. LAYLA check urine sodium, creatinine for FENA. Agree with iv fluids and holding ACEI for now. Baseline creatinine 0.7 in Oct 2017, progressed to 1.2 in December, now at 1.72. Consider renal biopsy if renal fxn does not improve to determine if has renal failure from vasculitis, cryoglobulinemia. LAVON positive, ANCA <1:20. 2. Cryoglobulinemia with skin rash on high dose prednisone x1 wk followed by hematology. Had appt with rheumatology as outpt next week. 3. Fever with leukocytosis on empiric antibx therapy. Cx pending. Fever may be from vasculitis if remains cx negative. May need plasmapheresis vs immunosuppressive therapy like rituxan or cyclophosphamide. Continue with steroid therapy. 4. SOB with airspace disease. Consider vasculitis involving lungs. 5. Severe iron def anemia hgb 7.4g today. 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 Suggest iv iron therapy. 6. Pulm Embolus on eliquis 7. HTN hold lisinopril. Resume home meds 8. Hypothyroid.
[2018-01-18 15:37] LABS: M R Staph aureus DNA By PCR Negative (Negative); Probe Check PASS; Specimen Processing Control PASS
[2018-01-18 15:55] LABS: Protein, Urine (Random) 43.6 mg/dL (<11.9)
[2018-01-18 16:01] LABS: Urine Sodium 67 mmol/L (Not Establ.)
[2018-01-18] MEDS: Nepro Liquid 120 ML LIQUID PO (19:25)
[2018-01-18] MEDS: 0.9% NaCl Peripheral Flush Adult/Peds IV (21:20)
[2018-01-19] VITALS (36 sets, daily range): BP systolic 113–156; BP diastolic 83–106; PULSE 65–97; RESP 21–31; TEMP 36.7–37.4; O2SAT 91–99
[2018-01-19] MEDS: 0.9% NaCl IVPB Med Flush (250 mL) 15 ML IV (03:30)
[2018-01-19 03:46] LABS: Hemoglobin 6.7 g/dl (13.0-16.5); Mean Corp Hgb Conc 30.5 g/gl (32-36); Mean Corpuscular Hgb 26.8 pg (27.0-32.0); Mean Platelet Vol. 8.3 fl (6.2-12.0); Platelet Count 121 K/mm3 (150-450); RBC Distribution Width CV 18.7 % (11.6-14.6); RBC Distribution Width SD 54.1 fl (35.1-43.9); Scan Indicated on CBC? Y/N NO; White Blood Count 10.1 K/mm3 (4.4-11.0)
[2018-01-19 04:16] LABS: ALB/GLOB Ratio 0.6 RATIO (0.9-2.4); AST(SGOT) 16 U/L (15-37); Alanine Aminotransfer ALT/SGPT 23 U/L (16-61); Albumin, Serum 2.2 g/dL (3.2-5.0); Alkaline Phosphatase 44 U/L (45-117); Anion Gap 8 (5-15); BUN 48 mg/dL (7-18); BUN/Creat Ratio 28.7 RATIO (10-20); Calcium,Total 7.6 mg/dL (8.5-10.1); Chloride 116 mmol/L (98-107); Creatinine, Serum 1.67 mg/dL (0.70-1.30); EST Glomerular Filtration Rate 44 mL/min (>60); Est Glom Filt Rate - Afr Amer 53 mL/min (>60); Estimated Creatinine Clearance 38.87 ml/min; Globulin 3.5 g/dL (2.2-4.2); Glucose 122 mg/dL (74-106); Protein, Total 5.7 g/dL (6.4-8.2); Sodium Level 146 mmol/L (136-145)
--- NOTE | 2018-01-19 07:15 | PN_ITS ---
Subjective: The patient was seen and examined at the bedside this morning. Events from the last 24 hours have been reviewed. The patient is currently afebrile, hemodynamically stable and maintaining appropriate oxygen saturations on 2 L/ min via nasal cannula. The patient was transfused 1 unit of packed red blood cells yesterday. Despite this, the patient's hemoglobin has decreased to 6.7 this morning. The patient is currently overall net +1.8 L for the admission. Objective: The patient's most recent lab work, culture data and imaging studies have all been personally reviewed. Blood and urine cultures are pending. Respiratory viral panel was negative. Surface echocardiogram revealed normal LV size and function with an ejection fraction of 65%. Right ventricular systolic pressure was estimated to be 38 mmHg. General: Alert, Oriented x3, Cooperative, No apparent distress HEENT: Atraumatic, PERRLA, Normocephalic Oral: No Gingival or Mucosal Lesions/ Ulcerations Neck: Supple, No Nodes, Trachea Midline Lungs: No rhonchi, No wheeze, Diminished, Rales Cardiovascular: Regular rate, Regular Rhythm, Normal S1, Normal S2, No murmurs Abdomen: Bowel Sounds Present, Soft, Non Tender, Obese Extremities: No clubbing, No cyanosis Skin: - - No significant change from previous Musculoskeletal: No Muscle Wasting Lymphatic: No Cervical, Supraclavicular, or Inguinal Adenopathy Neurological: Neuro grossly intact Psych/Mental Status: Alert and oriented to time, place, person, mood and affect Vital Signs Temp Pulse Resp BP Pulse Ox 98.2 F 72 25 H 141/96 H 95 01/19/18 07:08 01/19/18 07:08 01/19/18 07:08 01/19/18 07:08 01/19/18 07:08 Oxygen Flow Rate (L/min) 2 Oxygen Delivery Method Nasal Cannula Weight: 205 lb 7.533 oz Body Mass Index (BMI) 34.0 Intake and Output for Last 24 Hours 01/17/18 01/18/18 01/19/18 23:59 23:59 23:59 Intake Total 1598 / 1598 1435 / 1435 Output Total 300 / 300 900 / 900 Balance 1298 / 1298 535 / 535 Labs (Last 48 Hours) 01/18/18 01/18/18 01/18/18 13:24 13:24 13:24 WBC RBC Hgb Hct MCV MCH MCHC RDW RDW Differential Plt Count MPV Immature Plt Fraction 1.3 Retic Count 3.47 H Immature Retic Fraction 11.20 Retic Hgb Equivalent 29.8 L PT INR APTT Sodium Potassium Chloride Carbon Dioxide Anion Gap BUN Creatinine Estim Creat Clear Calc Est GFR (MDRD) Af Amer Est GFR (MDRD) Non-Af BUN/Creatinine Ratio Glucose Lactic Acid 1.8 Calcium Iron 12 L TIBC 172 L Iron Saturation 7.0 L Ferritin 1132 H Total Bilirubin AST ALT Alkaline Phosphatase Total Protein Albumin Globulin Albumin/Globulin Ratio Vitamin B12 MRSA (PCR) 01/18/18 01/18/18 01/18/18 13:40 13:40 13:40 WBC RBC Hgb Hct MCV MCH MCHC RDW RDW Differential Plt Count MPV Immature Plt Fraction Retic Count Immature Retic Fraction Retic Hgb Equivalent PT 18.1 H INR 1.5 APTT 30.6 Sodium Potassium Chloride Carbon Dioxide Anion Gap BUN Creatinine Estim Creat Clear Calc Est GFR (MDRD) Af Amer Est GFR (MDRD) Non-Af BUN/Creatinine Ratio Glucose Lactic Acid Calcium Iron TIBC Iron Saturation Ferritin Total Bilirubin AST ALT Alkaline Phosphatase Total Protein Albumin Globulin Albumin/Globulin Ratio Vitamin B12 Pending MRSA (PCR) Negative 01/18/18 01/19/18 01/19/18 13:40 03:32 03:32 WBC 10.1 RBC 2.50 L Hgb 6.7 L Hct 22.0 L MCV 88.0 MCH 26.8 L MCHC 30.5 L RDW 18.7 H RDW Differential 54.1 H Plt Count 121 L MPV 8.3 Immature Plt Fraction Retic Count Immature Retic Fraction Retic Hgb Equivalent PT INR APTT Sodium 146 H Potassium 4.0 Chloride 116 H Carbon Dioxide 22.0 Anion Gap 8 BUN 48 H Creatinine 1.67 H Estim Creat Clear Calc 38.87 Est GFR (MDRD) Af Amer 53 L Est GFR (MDRD) Non-Af 44 L BUN/Creatinine Ratio 28.7 H Glucose 122 H Lactic Acid Calcium 7.6 L Iron TIBC Iron Saturation Ferritin Total Bilirubin 1.00 AST 16 ALT 23 Alkaline Phosphatase 44 L Total Protein 5.7 L Albumin 2.2 L Globulin 3.5 Albumin/Globulin Ratio 0.6 L Vitamin B12 MRSA (PCR) Cancelled Clinical Impression(s) from Imaging Studies Chest X-Ray 01/18/18 09:27 IMPRESSION: Findings are in keeping with a mild degree of CHF. Electronically Signed: Antoni Lawson MD at 9:54 EDT Tel [phone], Service support , Chest CT 01/18/18 11:22 IMPRESSION: Small bilateral pleural effusions. Findings suggest a mild degree of CHF. Small pericardial effusion. Electronically Signed: Antoni Lawson MD at 12:41 EDT Tel [phone], Service support , Medical Necessity - Tobacco Use Smoking Status: Never smoker Assessment/Plan Active and Suspected Problems (Last Reviewed 01/11/18 @ 08:40 by Shirley Pearce) Anemia (Acute) RECOMMENDATIONS: 1. Will continue empiric Zosyn therapy for 1 additional day. If cultures are negative, antibiotics can be discontinued tomorrow. 2. Recheck H&H posttransfusion 3. Patient to remain n.p.o. 4. Upper endoscopy later this afternoon 5. Hold Eliquis for now and obtain lower extremity Dopplers 6. Consider alternative antihypertensive regimen, given the need to withhold lisinopril. 7. Continue supplemental IV fluids while the patient remains n.p.o. 8. Transition from IV bolus PPI to continue his PPI drip IMPRESSIONS: 1. Acute hypoxemic respiratory insufficiency Concern for underlying diastolic dysfunction with decompensation leading to shortness of breath, in conjunction with underlying acute on chronic anemia. The patient did have an elevated white blood cell count on presentation to the hospital. However, he has been on steroids for the past week. He additionally had a low-grade fever and tachypnea. Therefore, the patient was placed on antibiotics, pending infectious workup. We will plan to continue empiric Zosyn coverage and discontinue antibiotics tomorrow if infectious workup is negative. Will wean supplemental oxygen to maintain saturations at or above 90%. Strong clinical suspicion that the patient's shortness of breath is most likely due to his acute on chronic anemia. 2. Concern for underlying decompensated diastolic dysfunction Continue to provide supportive measures as noted above. 3. Acute on chronic anemia with concern for gastrointestinal blood loss The patient did have an upper endoscopy in October which showed small superficial ulcerations. The patient has since been started on Eliquis and has had a slow downward decline in his baseline, chronic anemia. We will plan to transfuse to maintain a hemoglobin at or above 8 g/dL. The patient's Eliquis is currently on hold. Continue PPI therapy. Plans for upper endoscopy later today. 4. Acute kidney injury Unclear etiology at this time. Nephrology has been consulted. DELMY inhibitor is on hold. Supplemental IV fluids will be continued. 5. Recent history of pulmonary embolism The patient has been on Eliquis therapy. Given the need to hold his anticoagulation, will repeat lower extremity Dopplers today. 6. 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 However, it is only been a week since it was started. Given the patient's gastrointestinal issues, would prefer to hold steroids at this time. 7. Hypertension/hypothyroidism/mitral valve prolapse Complicates care, management, recovery and prognosis. Continue to hold DELMY inhibitor. Consider alternative antihypertensive regimen. This note was generated with [employer] dictation software. It may contain incorrect words, spelling, and punctuation that were not noted in checking the note before signing. Code Visit Inpatient E&M: 29036 Subs Hosp L3
--- NOTE | 2018-01-19 07:48 | PCM.PN.HOSP ---
Subjective: Patient did have significant drop in his hemoglobin resulting in patient being transfused 1 unit PRBC during the night. His iron studies demonstrated significant iron deficiency anemia with iron saturation level of 12% and iron level of 7. Objective: GENERAL: Patient appears ill looking and dyspneic at rest HEENT: Clear conjunctiva, NECK; supple, normal thyroid, no distended JVD. CHEST: Diminished to auscultation HEART: Regular S1 S2, tachycardic ABDOMEN: soft, non-tender, normoactive bowel sounds, RECTAL: deferred EXTREMITIES: No clubbing, no cyanosis. [employer]: Awake, no lateralizing signs. SKIN: Petechial rash on both lower extremities Vitals/I&O's: Vital Signs Temp Pulse Resp BP Pulse Ox 98.2 F 72 25 H 141/96 H 95 01/19/18 07:08 01/19/18 07:08 01/19/18 07:08 01/19/18 07:08 01/19/18 07:08 Oxygen Flow Rate (L/min) 2 Oxygen Delivery Method Nasal Cannula Weight: 93.2 kg Body Mass Index (BMI) 34.0 Intake and Output for Last 24 Hours 01/17/18 01/18/18 01/19/18 23:59 23:59 23:59 Intake Total 1598 / 1598 1435 / 1435 Output Total 300 / 300 900 / 900 Balance 1298 / 1298 535 / 535 Laboratory Results 01/18/18 13:24: Iron 12 L, TIBC 172 L, Iron Saturation 7.0 L, Ferritin 1132 H 01/18/18 13:24: Immature Plt Fraction 1.3, Retic Count 3.47 H, Immature Retic Fraction 11.20, Retic Hgb Equivalent 29.8 L 01/18/18 13:24: Lactic Acid 1.8 01/18/18 13:40: PT 18.1 H, INR 1.5, APTT 30.6 01/18/18 13:40: Vitamin B12 Pending 01/18/18 13:40: MRSA (PCR) Negative 01/18/18 13:40: MRSA (PCR) Cancelled 01/19/18 03:32: Sodium 146 H, Potassium 4.0, Chloride 116 H, Carbon Dioxide 22.0, Anion Gap 8, BUN 48 H, Creatinine 1.67 H, Estim Creat Clear Calc 38.87, Est GFR (MDRD) Af Amer 53 L, Est GFR (MDRD) Non-Af 44 L, BUN/Creatinine Ratio 28.7 H, Glucose 122 H, Calcium 7.6 L, Total Bilirubin 1.00, AST 16, ALT 23, Alkaline Phosphatase 44 L, Total Protein 5.7 L, Albumin 2.2 L, Globulin 3.5, Albumin/Globulin Ratio 0.6 L 01/19/18 03:32: WBC 10.1, RBC 2.50 L, Hgb 6.7 L, Hct 22.0 L, MCV 88.0, MCH 26.8 L, MCHC 30.5 L, RDW 18.7 H, RDW Differential 54.1 H, Plt Count 121 L, MPV 8.3 Current Medications Bisacodyl (Dulcolax) 5 mg PO DAILY PRN PRN PRN Reason: Constipation Chlorhexidine Gluconate () 1 each TOPICAL DAILY [facility] Piperacillin Sod/Tazobactam (Sod 3.375 gm/ Sodium Chloride) 50 mls @ 12.5 mls/hr IV Q8 RONNI Last Admin: 01/19/18 06:59 Dose: 12.5 mls/hr Dextrose () 1,000 mls @ 125 mls/hr IV .Q8H RONNI Last Admin: 01/19/18 03:30 Dose: 125 mls/hr Sodium Chloride () 250 mls @ 15 mls/hr IV .[id number] PRN PRN Reason: SALINE FLUSH Last Admin: 01/19/18 03:30 Dose: 15 mls/hr Sodium Chloride () 250 mls @ 15 mls/hr IV .[id number] PRN PRN Reason: SALINE FLUSH Pantoprazole Sodium 80 mg/ (Sodium Chloride) 100 mls @ 10 mls/hr CONT INF Q10H [facility] Magnesium Hydroxide (Milk Of Magnesia) 30 ml PO DAILY PRN PRN PRN Reason: Constipation Nutritional Formula (Nepro Carb Steady) 120 ml PO 4X/DAY [facility] Last Admin: 01/19/18 00:28 Dose: Not Given Psyllium Hydrophilic Mucilloid (Metamucil) 1 packet PO DAILY PRN PRN PRN Reason: CONSTIPATION Sodium Chloride () 5 - 30 ml IV UD PRN PRN Reason: SALINE FLUSH Last Admin: 01/18/18 21:20 Dose: 10 ml Medical Necessity - Tobacco Use Smoking Status: Never smoker Assessment/Plan Patient is a 62-year-old gentleman who is currently undergoing evaluation as outpatient for possible vasculitis presented with sudden onset of shortness of breath imaging studies obtained on admission with chest x-ray as well as CT of the chest demonstrated features consistent with congestive heart failure admitted to monitored bed for further management 1. Acute dyspnea secondary to acute congestive heart failure probably diastolic dysfunction patient was initially started on fluids in view of suspected sepsis however his presentation is not consistent. Patient was placed on low-dose Lasix ordered a 2D echo strict input and output 2. Sepsis syndrome ruled out. Patient has no identifiable source of infection is elevated lactic acid level is from increased work of breathing 3. 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 Patient was placed on high-dose steroids by PCP did continue 4. History of hypercoagulable state with PEs on systemic anticoagulation 5. Paroxysmal A. fib 6. Mitral valve prolapse 7. Hypothyroidism-patient is on levothyroxine home dose continued 8. Hypertension 9. Anemia secondary to anemia of chronic disorder; Patient did have significant drop in his hemoglobin resulting in patient being transfused 1 unit PRBC during the night. His iron studies demonstrated significant iron deficiency anemia with iron saturation level of 12% and iron level of 7. Consult was placed to Dr. Collado who had previously seen the patient for patient undergo quick endoscopic evaluation he apparently had a colonoscopy in October which failed to demonstrate any colonic mass. 10. Renal failure; patient kidney function worsened since the beginning of the year from 0.9 in October to 1.28 in December and currently 1.7. Consult was placed to nephrology as a result ordered renal ultrasound for subsequent evaluation 11. DVT prophylaxis patient is on Eliquis no need for additional measures Clinical Impression(s) from Imaging Studies Chest X-Ray 01/18/18 09:27 IMPRESSION: Findings are in keeping with a mild degree of CHF. Chest CT 01/18/18 11:22 IMPRESSION: Small bilateral pleural effusions. Findings suggest a mild degree of CHF. Small pericardial effusion. Code Visit Inpatient E&M: 62461 [facility] Hosp L3
--- NOTE | 2018-01-19 07:49 | VDLE_ITS ---
Reason For Study: PULM EMBOLISM RIGHT LEFT GSV is normal. GSV is normal. CFV is compressible, spontaneous, phasic, CFV is compressible, spontaneous, phasic, competent and demonstrates normal competent, and demonstrates normal augmentation. augmentation. FV is compressible, spontaneous, phasic, FV is compressible, spontaneous, phasic, competent and demonstrates normal competent and demonstrates normal augmentation. augmentation. POP V is compressible, spontaneous, phasic, POP V is compressible, spontaneous, phasic, competent and demonstrates normal competent and demonstrates normal augmentation. augmentation. T/P Trunk is compressible. T/P Trunk is compressible. PTV is compressible. PTV is compressible. RT PerV is compressible. LT PerV is compressible. Procedure Exam performed portable in ICU/CCU. A preliminary report was called and/or faxed to CVICU. Interpretation Summary Deep veins of the lower extremities are bilaterally patent and compressible segmentally. There is no evidence of deep vein thrombosis on either side. Valvular competence appears intact within the proximal deep venous systems bilaterally. The greater saphenous veins appear bilaterally patent and compressible segmentally. Ordering Physician: Slade Hamm D.O. Referring Physician: Wade Arce Chi Performed By: Meryl Parra, DIANE, RVT
--- NOTE | 2018-01-19 07:54 | PN_ITS ---
Subjective: Patient did have significant drop in his hemoglobin resulting in patient being transfused 1 unit PRBC during the night. His iron studies demonstrated significant iron deficiency anemia with iron saturation level of 12% and iron level of 7. Objective: GENERAL: Patient appears ill looking and dyspneic at rest HEENT: Clear conjunctiva, NECK; supple, normal thyroid, no distended JVD. CHEST: Diminished to auscultation HEART: Regular S1 S2, tachycardic ABDOMEN: soft, non-tender, normoactive bowel sounds, RECTAL: deferred EXTREMITIES: No clubbing, no cyanosis. [employer]: Awake, no lateralizing signs. SKIN: Petechial rash on both lower extremities Vitals/I&O's: Vital Signs Temp Pulse Resp BP Pulse Ox 98.2 F 72 25 H 141/96 H 95 01/19/18 07:08 01/19/18 07:08 01/19/18 07:08 01/19/18 07:08 01/19/18 07:08 Oxygen Flow Rate (L/min) 2 Oxygen Delivery Method Nasal Cannula Weight: 93.2 kg Body Mass Index (BMI) 34.0 Intake and Output for Last 24 Hours 01/17/18 01/18/18 01/19/18 23:59 23:59 23:59 Intake Total 1598 / 1598 1435 / 1435 Output Total 300 / 300 900 / 900 Balance 1298 / 1298 535 / 535 Laboratory Results 01/18/18 13:24: Iron 12 L, TIBC 172 L, Iron Saturation 7.0 L, Ferritin 1132 H 01/18/18 13:24: Immature Plt Fraction 1.3, Retic Count 3.47 H, Immature Retic Fraction 11.20, Retic Hgb Equivalent 29.8 L 01/18/18 13:24: Lactic Acid 1.8 01/18/18 13:40: PT 18.1 H, INR 1.5, APTT 30.6 01/18/18 13:40: Vitamin B12 Pending 01/18/18 13:40: MRSA (PCR) Negative 01/18/18 13:40: MRSA (PCR) Cancelled 01/19/18 03:32: Sodium 146 H, Potassium 4.0, Chloride 116 H, Carbon Dioxide 22.0 , Anion Gap 8, BUN 48 H, Creatinine 1.67 H, Estim Creat Clear Calc 38.87, Est GFR (MDRD) Af Amer 53 L, Est GFR (MDRD) Non-Af 44 L, BUN/Creatinine Ratio 28.7 H , Glucose 122 H, Calcium 7.6 L, Total Bilirubin 1.00, AST 16, ALT 23, Alkaline Phosphatase 44 L, Total Protein 5.7 L, Albumin 2.2 L, Globulin 3.5, Albumin/ Globulin Ratio 0.6 L 01/19/18 03:32: WBC 10.1, RBC 2.50 L, Hgb 6.7 L, Hct 22.0 L, MCV 88.0, MCH 26.8 L, MCHC 30.5 L, RDW 18.7 H, RDW Differential 54.1 H, Plt Count 121 L, MPV 8.3 Current Medications Bisacodyl (Dulcolax) 5 mg PO DAILY PRN PRN PRN Reason: Constipation Chlorhexidine Gluconate () 1 each TOPICAL DAILY [facility] Piperacillin Sod/Tazobactam (Sod 3.375 gm/ Sodium Chloride) 50 mls @ 12.5 mls/ hr IV Q8 RONNI Last Admin: 01/19/18 06:59 Dose: 12.5 mls/hr Dextrose () 1,000 mls @ 125 mls/hr IV .Q8H RONNI Last Admin: 01/19/18 03:30 Dose: 125 mls/hr Sodium Chloride () 250 mls @ 15 mls/hr IV .[id number] PRN PRN Reason: SALINE FLUSH Last Admin: 01/19/18 03:30 Dose: 15 mls/hr Sodium Chloride () 250 mls @ 15 mls/hr IV .[id number] PRN PRN Reason: SALINE FLUSH Pantoprazole Sodium 80 mg/ (Sodium Chloride) 100 mls @ 10 mls/hr CONT INF Q10H [facility] Magnesium Hydroxide (Milk Of Magnesia) 30 ml PO DAILY PRN PRN PRN Reason: Constipation Nutritional Formula (Nepro Carb Steady) 120 ml PO 4X/DAY [facility] Last Admin: 01/19/18 00:28 Dose: Not Given Psyllium Hydrophilic Mucilloid (Metamucil) 1 packet PO DAILY PRN PRN PRN Reason: CONSTIPATION Sodium Chloride () 5 - 30 ml IV UD PRN PRN Reason: SALINE FLUSH Last Admin: 01/18/18 21:20 Dose: 10 ml Medical Necessity - Tobacco Use Smoking Status: Never smoker Assessment/Plan Patient is a 62-year-old gentleman who is currently undergoing evaluation as outpatient for possible vasculitis presented with sudden onset of shortness of breath imaging studies obtained on admission with chest x-ray as well as CT of the chest demonstrated features consistent with congestive heart failure admitted to monitored bed for further management 1. Acute dyspnea secondary to acute congestive heart failure probably diastolic dysfunction patient was initially started on fluids in view of suspected sepsis however his presentation is not consistent. Patient was placed on low-dose Lasix ordered a 2D echo strict input and output 2. Sepsis syndrome ruled out. Patient has no identifiable source of infection is elevated lactic acid level is from increased work of breathing 3. 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 Patient was placed on high-dose steroids by PCP did continue 4. History of hypercoagulable state with PEs on systemic anticoagulation 5. Paroxysmal A. fib 6. Mitral valve prolapse 7. Hypothyroidism-patient is on levothyroxine home dose continued 8. Hypertension 9. Anemia secondary to anemia of chronic disorder; Patient did have significant drop in his hemoglobin resulting in patient being transfused 1 unit PRBC during the night. His iron studies demonstrated significant iron deficiency anemia with iron saturation level of 12% and iron level of 7. Consult was placed to Dr. Collado who had previously seen the patient for patient undergo quick endoscopic evaluation he apparently had a colonoscopy in October which failed to demonstrate any colonic mass. 10. Renal failure; patient kidney function worsened since the beginning of the year from 0.9 in October to 1.28 in December and currently 1.7. Consult was placed to nephrology as a result ordered renal ultrasound for subsequent evaluation 11. DVT prophylaxis patient is on Eliquis no need for additional measures Clinical Impression(s) from Imaging Studies Chest X-Ray 01/18/18 09:27 IMPRESSION: Findings are in keeping with a mild degree of CHF. Chest CT 01/18/18 11:22 IMPRESSION: Small bilateral pleural effusions. Findings suggest a mild degree of CHF. Small pericardial effusion. Code Visit Inpatient E&M: 32382 [facility] Hosp L3
--- NOTE | 2018-01-19 09:11 | CON.PCM_ITS ---
Problem List (1) Anemia Status: Acute Qualifiers: Anemia type: iron deficiency Iron deficiency anemia type: unspecified iron deficiency Qualified Code(s): D50.9 - Iron deficiency anemia, unspecified Reason for Consult Date of Consultation: 01/19/18 History of Present Illness: The patient is a 62 year old M who was admitted with anemia. His hemoglobin continues to fall. His hemoglobin was 6.7 from 7.4. The patient does not note any gross blood in his stool and he has not been vomiting. He has no abdominal pain. I performed an EGD and colonoscopy on him in October which was normal except for some shallow ulcers in the stomach. He reports he has been taking his PPI as directed. Past Medical History Past Medical History (Chronic Problems): Chronic Problems (Last Reviewed 01/11/18 @ 08:40 by Shirley Pearce) Umbilical hernia without mention of obstruction or gangrene (Chronic) Segmental and somatic dysfunction of lumbar region (Chronic) Weight loss, unintentional (Chronic) Anemia (Chronic) Nausea (Chronic) Hypoalbuminemia (Chronic) Compound heterozygous MTHFR mutation [id number] (Chronic) MGUS (monoclonal gammopathy of unknown significance) (Chronic) Cryoglobulinemia (Chronic) Segmental and somatic dysfunction of pelvic region (Chronic) Segmental and somatic dysfunction of thoracic region (Chronic) DDD (degenerative disc disease), lumbar (Chronic) Allergies Cjmszmp-Gqt-Yii Reductase Inhibitor Adverse Reaction (Severe, Verified 01/18/18 14:17) Muscle Weakness Home Medications: Ambulatory Orders Medication Instructions Recorded Levothyroxine [Synthroid] 25 mcg PO DAILY 05/17/16 Lisinopril [Zestril] 10 mg PO DAILY 05/17/16 Metoprolol Tartrate [Lopressor 50 mg PO BID 05/17/16 (Beta Kita)] Atropine Sulfate in 0.9% NaCl 10 ml LEFT EYE DAILY 10/30/17 [Atropine 0.01%-Ns Eye Drops] prednisoLONE eye drops (1 mL) 1 drop LEFT EYE BID 10/30/17 [Pred Forte 1 ml] Acetaminophen [Tylenol Extra 500 mg PO PRN PRN 11/14/17 Strength] Apixaban [Eliquis] 5 mg PO BID 11/14/17 Omeprazole 20 mg PO DAILY 01/18/18 Prednisone [Prednisone] 60 mg PO DAILY 01/18/18 Surgical History: cataract Smoking Status: Never smoker - *Family History Maternal History Items: Heart Disease Paternal History Items: Heart Disease Review of Systems Constitutional: Denies: Anorexia, Fever HEENT: Denies: Difficulty Swallowing Cardiovascular: Denies: Chest Pain Respiratory: Denies: Shortness of Breath Gastrointestinal: Denies: Abdominal Pain, Hematochezia, Nausea, Melena, Vomiting Genitourinary: Denies: Dysuria Patient Problems: Active and Suspected Problems (Last Reviewed 01/11/18 @ 08:40 by Shirley Pearce) Anemia (Acute) - Physical Exam General: Alert, Oriented x3, Cooperative, No apparent distress HEENT: Atraumatic, PERRLA, EOMI Oral: Moist Mucosa Neck: Supple Lungs: Normal air movement Cardiovascular: Regular rate, Regular Rhythm Abdomen: Soft, Non Tender, Non-Distended Vital Signs Temp Pulse Resp BP Pulse Ox 98.6 F 76 22 H 141/100 H 96 01/19/18 08:08 01/19/18 08:08 01/19/18 08:08 01/19/18 08:08 01/19/18 08:08 Oxygen Flow Rate (L/min) 2 Oxygen Delivery Method Nasal Cannula Weight: 205 lb 7.533 oz Body Mass Index (BMI) 34.0 Intake and Output for Last 24 Hours 01/17/18 01/18/18 01/19/18 23:59 23:59 23:59 Intake Total 1598 / 1598 1435 / 1435 Output Total 300 / 300 900 / 900 Balance 1298 / 1298 535 / 535 Laboratory Tests Past 24 Hrs 01/18/18 01/18/18 01/18/18 13:24 13:24 13:24 WBC RBC Hgb Hct MCV MCH MCHC RDW RDW Differential Plt Count MPV Immature Plt Fraction 1.3 Retic Count 3.47 H Immature Retic Fraction 11.20 Retic Hgb Equivalent 29.8 L PT INR APTT Sodium Potassium Chloride Carbon Dioxide Anion Gap BUN Creatinine Estim Creat Clear Calc Est GFR (MDRD) Af Amer Est GFR (MDRD) Non-Af BUN/Creatinine Ratio Glucose Lactic Acid 1.8 Calcium Iron 12 L TIBC 172 L Iron Saturation 7.0 L Ferritin 1132 H Total Bilirubin AST ALT Alkaline Phosphatase Total Protein Albumin Globulin Albumin/Globulin Ratio Vitamin B12 MRSA (PCR) 01/18/18 01/18/18 01/18/18 13:40 13:40 13:40 WBC RBC Hgb Hct MCV MCH MCHC RDW RDW Differential Plt Count MPV Immature Plt Fraction Retic Count Immature Retic Fraction Retic Hgb Equivalent PT 18.1 H INR 1.5 APTT 30.6 Sodium Potassium Chloride Carbon Dioxide Anion Gap BUN Creatinine Estim Creat Clear Calc Est GFR (MDRD) Af Amer Est GFR (MDRD) Non-Af BUN/Creatinine Ratio Glucose Lactic Acid Calcium Iron TIBC Iron Saturation Ferritin Total Bilirubin AST ALT Alkaline Phosphatase Total Protein Albumin Globulin Albumin/Globulin Ratio Vitamin B12 Pending MRSA (PCR) Negative 01/18/18 01/19/18 01/19/18 13:40 03:32 03:32 WBC 10.1 RBC 2.50 L Hgb 6.7 L Hct 22.0 L MCV 88.0 MCH 26.8 L MCHC 30.5 L RDW 18.7 H RDW Differential 54.1 H Plt Count 121 L MPV 8.3 Immature Plt Fraction Retic Count Immature Retic Fraction Retic Hgb Equivalent PT INR APTT Sodium 146 H Potassium 4.0 Chloride 116 H Carbon Dioxide 22.0 Anion Gap 8 BUN 48 H Creatinine 1.67 H Estim Creat Clear Calc 38.87 Est GFR (MDRD) Af Amer 53 L Est GFR (MDRD) Non-Af 44 L BUN/Creatinine Ratio 28.7 H Glucose 122 H Lactic Acid Calcium 7.6 L Iron TIBC Iron Saturation Ferritin Total Bilirubin 1.00 AST 16 ALT 23 Alkaline Phosphatase 44 L Total Protein 5.7 L Albumin 2.2 L Globulin 3.5 Albumin/Globulin Ratio 0.6 L Vitamin B12 MRSA (PCR) Cancelled Assessment/Plan Active and Suspected Problems (Last Reviewed 01/11/18 @ 08:40 by Shirley Pearce) Anemia (Acute) 62-year-old male with iron deficiency anemia possible blood loss anemia 1. The patient is anemic with no gross blood loss. I can perform an EGD today to rule out bleeding ulcer. I informed the patient of the risks of bleeding and infection and perforation of the GI tract. The patient is at high risk for bleeding due to his blood thinning status. Currently the patient's blood thinner will be held and he is n.p.o. Johan Collado MD Pager: [facility] [address], [address] [place] [id number] Office:
[2018-01-19 09:45] LABS: Vitamin B12 376 pg/mL (211-911)
--- NOTE | 2018-01-19 10:28 | CASEMGMT ---
DC PLAN: home on discharge. Ricardo BARBOSAN RN ACM
[2018-01-19 11:21] LABS: Hematocrit 23.5 % (40-54); Hemoglobin 7.3 g/dl (13.0-16.5)
--- NOTE | 2018-01-19 12:04 | PCM.OPRPT ---
Problem List (1) Anemia Status: Acute Qualifiers: Anemia type: iron deficiency Iron deficiency anemia type: unspecified iron deficiency Qualified Code(s): D50.9 - Iron deficiency anemia, unspecified Report of Operation Date of Procedure: 01/19/18 Pre-Operative Diagnosis: Anemia with possible GI bleed Post-Operative Diagnosis: Same Surgery/Procedure Performed:: EGD Description of Procedure: The patient was brought to the endoscopy suite and moderate sedation was achieved. The scope was then placed through the mouth and at the back of the tongue there appeared to be some blood in the hypopharynx above the vocal cords. The scope was advanced and some of his blood was draining down the esophagus for once I reached the midesophagus there was no more blood. The scope was advanced into the stomach and it was insufflated. There appear to be no blood or blood clots in the stomach. The scope was advanced down to the pylorus which was clean. The ulcers appear to be healing well with no sign or stigmata of bleeding. The scope was advanced through the pylorus into the proximal of the duodenum and there is no blood in the duodenum and it appeared normal. The scope was withdrawn and retroflexed. The retroflexed view did not reveal any blood clots or bleeding. The scope was straightened and removed back into the GE junction which was normal. The scope was slowly withdrawn into the proximal esophagus and a source of bleeding was not located. Recommendations: The patient did not have any upper GI bleeding. There was some blood in the hypopharynx at the beginning of the case but this was in the tonsillar area above the vocal cords. There did not appear to be any active bleeding in the GI tract. Patient is okay for diet from my standpoint. Continue to monitor hemoglobin.
[2018-01-19] MEDS: 0.9% NaCl Peripheral Flush Adult/Peds IV (14:17)
[2018-01-19] MEDS: Nepro Liquid 120 ML LIQUID PO (14:17)
--- NOTE | 2018-01-19 17:03 | PCM.DC ---
- Discharge Diagnoses Current Active Problems: Current Active and Chronic Problems (Last Reviewed 01/11/18 @ 08:40 by Shirley Pearce) Anemia (Acute) Allergies/Adverse Reactions: Allergies Yvxtxuv-Gch-Cbe Reductase Inhibitor Adverse Reaction (Severe, Verified 01/18/18 14:17) Muscle Weakness Medications to take at Discharge Levothyroxine [Synthroid] 25 mcg PO DAILY 05/17/16 Lisinopril [Zestril] 10 mg PO DAILY 05/17/16 Metoprolol Tartrate [Lopressor (Beta Kita)] 50 mg PO BID 05/17/16 Atropine Sulfate in 0.9% NaCl [Atropine 0.01%-Ns Eye Drops] 10 ml LEFT EYE DAILY 10/30/17 prednisoLONE eye drops (1 mL) [Pred Forte 1 ml] 1 drop LEFT EYE BID 10/30/17 Acetaminophen [Tylenol Extra Strength] 500 mg PO PRN PRN 11/14/17 Apixaban [Eliquis] 5 mg PO BID 11/14/17 Omeprazole 20 mg PO DAILY 01/18/18 Prednisone [Prednisone] 60 mg PO DAILY 01/18/18 Primary Care Physician: Wade Arce Chi, MD [Primary Care Provider] - Proposed Discharge Date: 01/19/18
--- NOTE | 2018-01-19 17:06 | DCINST_ITS ---
- Discharge Diagnoses Current Active Problems: Current Active and Chronic Problems (Last Reviewed 01/11/18 @ 08:40 by Shirley Pearce) Anemia (Acute) Allergies/Adverse Reactions: Allergies Afdnbpj-Ign-Cnf Reductase Inhibitor Adverse Reaction (Severe, Verified 01/18/18 14:17) Muscle Weakness Medications to take at Discharge Levothyroxine [Synthroid] 25 mcg PO DAILY 05/17/16 Lisinopril [Zestril] 10 mg PO DAILY 05/17/16 Metoprolol Tartrate [Lopressor (Beta Kita)] 50 mg PO BID 05/17/16 Atropine Sulfate in 0.9% NaCl [Atropine 0.01%-Ns Eye Drops] 10 ml LEFT EYE DAILY 10/30/17 prednisoLONE eye drops (1 mL) [Pred Forte 1 ml] 1 drop LEFT EYE BID 10/30/17 Acetaminophen [Tylenol Extra Strength] 500 mg PO PRN PRN 11/14/17 Apixaban [Eliquis] 5 mg PO BID 11/14/17 Omeprazole 20 mg PO DAILY 01/18/18 Prednisone [Prednisone] 60 mg PO DAILY 01/18/18 Primary Care Physician: Wade Arce Chi, MD [Primary Care Provider] - Proposed Discharge Date: 01/19/18
--- NOTE | 2018-01-19 17:08 | PCM.DC.SUM ---
Discharge Date and Diagnosis - Problem List Patient Problems: Active and Suspected Problems (Last Reviewed 01/11/18 @ 08:40 by Shirley Pearce) Anemia (Acute) Date of Admission: 01/18/18 Date of Discharge: 01/19/18 - Primary Discharge Diagnosis Active and Suspected Problems (Last Reviewed 01/11/18 @ 08:40 by Shirley Pearce) Anemia (Acute) - Secondary Discharge Diagnosis Chronic Problems (Last Reviewed 01/11/18 @ 08:40 by Shirley Pearce) Umbilical hernia without mention of obstruction or gangrene (Chronic) Segmental and somatic dysfunction of lumbar region (Chronic) Weight loss, unintentional (Chronic) Anemia (Chronic) Nausea (Chronic) Hypoalbuminemia (Chronic) Compound heterozygous MTHFR mutation [id number] (Chronic) MGUS (monoclonal gammopathy of unknown significance) (Chronic) Cryoglobulinemia (Chronic) Segmental and somatic dysfunction of pelvic region (Chronic) Segmental and somatic dysfunction of thoracic region (Chronic) DDD (degenerative disc disease), lumbar (Chronic) Hospital Course and Treatment Imaging Results: Clinical Impression(s) from Imaging Studies Chest X-Ray 01/18/18 09:27 IMPRESSION: Findings are in keeping with a mild degree of CHF. Electronically Signed: Antoni Lawson MD at 9:54 EDT Tel [phone], Service support , Chest CT 01/18/18 11:22 IMPRESSION: Small bilateral pleural effusions. Findings suggest a mild degree of CHF. Small pericardial effusion. Electronically Signed: Antoni Lawson MD at 12:41 EDT Tel [phone], Service support , 2D ECHO Left ventricular systolic function is normal. The estimated ejection fraction is 65 %. The left atrium is moderately enlarged. Moderate diffuse mitral valve thickening. Moderate mitral valve prolapse. Mild-Moderate (1-2+) eccentric mitral valve insufficiency. Mild tricuspid valve insufficiency. Mild focal aortic valve thickening. Mild-Moderate (1-2+) pulmonic valve insufficiency. The ascending aorta is mildly dilated. Trivial pericardial effusion. There are no echocardiographic indications of cardiac tamponade. Right ventricular systolic pressure estimated to be 38 mmHg. Transmitral diastolic flow velocities suggest diastolic dysfunction. Based upon the 2D echocardiographic images obtained a partially flail / ruptured mitral valve chordae tendonae or partially flail posterior mitral valve leaflet cannot be excluded. Consider further evaluation with TAYLOR if clinically indicated. Summary of Care Provided: Patient is a 62-year-old gentleman who is currently undergoing evaluation as outpatient for possible vasculitis presented with sudden onset of shortness of breath imaging studies obtained on admission with chest x-ray as well as CT of the chest demonstrated features consistent with congestive heart failure admitted to monitored bed for further management. Patient hospital stay was complicated by a drop in his hemoglobin resulting in patient being transfused 1 unit PRBC and undergoing endoscopic evaluation which failed to demonstrate any source of bleeding. He was also found to have worsening kidney function was seen by nephrology who recommended patient to be transferred to a tertiary care center for subsequent evaluation 1. Acute dyspnea secondary to acute congestive heart failure probably diastolic dysfunction patient was initially started on fluids in view of suspected sepsis however his presentation was not consistent with sepsis. Patient was placed on low-dose Lasix ordered a 2D echo strict input and output. 2D echo result as above. 2. Sepsis syndrome ruled out. Patient has no identifiable source of infection is elevated lactic acid level is from increased work of breathing 3. 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 Patient was placed on high-dose steroids by PCP did continue 4. History of hypercoagulable state with PEs on systemic anticoagulation 5. Paroxysmal A. fib 6. Mitral valve prolapse 7. Hypothyroidism-patient is on levothyroxine home dose continued 8. Hypertension 9. Anemia secondary to anemia of chronic disorder; Patient did have significant drop in his hemoglobin resulting in patient being transfused 1 unit PRBC during the night. His iron studies demonstrated significant iron deficiency anemia with iron saturation level of 12% and iron level of 7. Consult was placed to Dr. Collado who had previously seen the patient for patient undergo quick endoscopic evaluation he apparently had a colonoscopy in October which failed to demonstrate any colonic mass.. Patient endoscopic evaluation failed to demonstrate any bleeding from the stomach he however had some old blood in the hypopharynx. 10. Renal failure; patient kidney function worsened since the beginning of the year from 0.9 in October to 1.28 in December and currently 1.7. Consult was placed to nephrology the patient was seen in consultation by Dr. Vida Russell case was discussed with him she recommended for patient to be transferred to a tertiary care center for subsequent evaluation call was placed patient was accepted to [facility] for further evaluation and management 11. DVT prophylaxis patient is on Eliquis no need for additional measures Home Medications: Medications to take at Discharge Levothyroxine [Synthroid] 25 mcg PO DAILY 05/17/16 Lisinopril [Zestril] 10 mg PO DAILY 05/17/16 Metoprolol Tartrate [Lopressor (Beta Kita)] 50 mg PO BID 05/17/16 Atropine Sulfate in 0.9% NaCl [Atropine 0.01%-Ns Eye Drops] 10 ml LEFT EYE DAILY 10/30/17 prednisoLONE eye drops (1 mL) [Pred Forte 1 ml] 1 drop LEFT EYE BID 10/30/17 Acetaminophen [Tylenol Extra Strength] 500 mg PO PRN PRN 11/14/17 Apixaban [Eliquis] 5 mg PO BID 11/14/17 Omeprazole 20 mg PO DAILY 01/18/18 Prednisone [Prednisone] 60 mg PO DAILY 01/18/18 Primary Care Physician: Wade Arce Chi, MD [Primary Care Provider] - Disposition: Acute care Hospital - [facility] Minutes spent on discharge:: 50 Patient Condition:: Stable Medical Necessity - Tobacco Use Smoking Status: Never smoker Meaningful Use Info Meaningful Use Diagnoses (Choose all that apply): None applicable Code Visit Inpatient E&M: 53136 Disch Hosp
--- NOTE | 2018-01-19 17:12 | DS.PCM_ITS ---
Discharge Date and Diagnosis - Problem List Patient Problems: Active and Suspected Problems (Last Reviewed 01/11/18 @ 08:40 by Shirley Pearce) Anemia (Acute) Date of Admission: 01/18/18 Date of Discharge: 01/19/18 - Primary Discharge Diagnosis Active and Suspected Problems (Last Reviewed 01/11/18 @ 08:40 by Shirley Pearce) Anemia (Acute) - Secondary Discharge Diagnosis Chronic Problems (Last Reviewed 01/11/18 @ 08:40 by Shirley Pearce) Umbilical hernia without mention of obstruction or gangrene (Chronic) Segmental and somatic dysfunction of lumbar region (Chronic) Weight loss, unintentional (Chronic) Anemia (Chronic) Nausea (Chronic) Hypoalbuminemia (Chronic) Compound heterozygous MTHFR mutation [id number] (Chronic) MGUS (monoclonal gammopathy of unknown significance) (Chronic) Cryoglobulinemia (Chronic) Segmental and somatic dysfunction of pelvic region (Chronic) Segmental and somatic dysfunction of thoracic region (Chronic) DDD (degenerative disc disease), lumbar (Chronic) Hospital Course and Treatment Imaging Results: Clinical Impression(s) from Imaging Studies Chest X-Ray 01/18/18 09:27 IMPRESSION: Findings are in keeping with a mild degree of CHF. Electronically Signed: Antoni Lawson MD at 9:54 EDT Tel [phone], Service support , Chest CT 01/18/18 11:22 IMPRESSION: Small bilateral pleural effusions. Findings suggest a mild degree of CHF. Small pericardial effusion. Electronically Signed: Antoni Lawson MD at 12:41 EDT Tel [phone], Service support , 2D ECHO Left ventricular systolic function is normal. The estimated ejection fraction is 65 %. The left atrium is moderately enlarged. Moderate diffuse mitral valve thickening. Moderate mitral valve prolapse. Mild-Moderate (1-2+) eccentric mitral valve insufficiency. Mild tricuspid valve insufficiency. Mild focal aortic valve thickening. Mild-Moderate (1-2+) pulmonic valve insufficiency. The ascending aorta is mildly dilated. Trivial pericardial effusion. There are no echocardiographic indications of cardiac tamponade. Right ventricular systolic pressure estimated to be 38 mmHg. Transmitral diastolic flow velocities suggest diastolic dysfunction. Based upon the 2D echocardiographic images obtained a partially flail / ruptured mitral valve chordae tendonae or partially flail posterior mitral valve leaflet cannot be excluded. Consider further evaluation with TAYLOR if clinically indicated. Summary of Care Provided: Patient is a 62-year-old gentleman who is currently undergoing evaluation as outpatient for possible vasculitis presented with sudden onset of shortness of breath imaging studies obtained on admission with chest x-ray as well as CT of the chest demonstrated features consistent with congestive heart failure admitted to monitored bed for further management. Patient hospital stay was complicated by a drop in his hemoglobin resulting in patient being transfused 1 unit PRBC and undergoing endoscopic evaluation which failed to demonstrate any source of bleeding. He was also found to have worsening kidney function was seen by nephrology who recommended patient to be transferred to a tertiary care center for subsequent evaluation 1. Acute dyspnea secondary to acute congestive heart failure probably diastolic dysfunction patient was initially started on fluids in view of suspected sepsis however his presentation was not consistent with sepsis. Patient was placed on low-dose Lasix ordered a 2D echo strict input and output. 2D echo result as above. 2. Sepsis syndrome ruled out. Patient has no identifiable source of infection is elevated lactic acid level is from increased work of breathing 3. 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 Patient was placed on high-dose steroids by PCP did continue 4. History of hypercoagulable state with PEs on systemic anticoagulation 5. Paroxysmal A. fib 6. Mitral valve prolapse 7. Hypothyroidism-patient is on levothyroxine home dose continued 8. Hypertension 9. Anemia secondary to anemia of chronic disorder; Patient did have significant drop in his hemoglobin resulting in patient being transfused 1 unit PRBC during the night. His iron studies demonstrated significant iron deficiency anemia with iron saturation level of 12% and iron level of 7. Consult was placed to Dr. Collado who had previously seen the patient for patient undergo quick endoscopic evaluation he apparently had a colonoscopy in October which failed to demonstrate any colonic mass.. Patient endoscopic evaluation failed to demonstrate any bleeding from the stomach he however had some old blood in the hypopharynx. 10. Renal failure; patient kidney function worsened since the beginning of the year from 0.9 in October to 1.28 in December and currently 1.7. Consult was placed to nephrology the patient was seen in consultation by Dr. Vida Russell case was discussed with him she recommended for patient to be transferred to a tertiary care center for subsequent evaluation call was placed patient was accepted to [facility] for further evaluation and management 11. DVT prophylaxis patient is on Eliquis no need for additional measures Home Medications: Medications to take at Discharge Levothyroxine [Synthroid] 25 mcg PO DAILY 05/17/16 Lisinopril [Zestril] 10 mg PO DAILY 05/17/16 Metoprolol Tartrate [Lopressor (Beta Kita)] 50 mg PO BID 05/17/16 Atropine Sulfate in 0.9% NaCl [Atropine 0.01%-Ns Eye Drops] 10 ml LEFT EYE DAILY 10/30/17 prednisoLONE eye drops (1 mL) [Pred Forte 1 ml] 1 drop LEFT EYE BID 10/30/17 Acetaminophen [Tylenol Extra Strength] 500 mg PO PRN PRN 11/14/17 Apixaban [Eliquis] 5 mg PO BID 11/14/17 Omeprazole 20 mg PO DAILY 01/18/18 Prednisone [Prednisone] 60 mg PO DAILY 01/18/18 Primary Care Physician: Wade Arce Chi, MD [Primary Care Provider] - Disposition: Acute care Hospital - [facility] Minutes spent on discharge:: 50 Patient Condition:: Stable Medical Necessity - Tobacco Use Smoking Status: Never smoker Meaningful Use Info Meaningful Use Diagnoses (Choose all that apply): None applicable Code Visit Inpatient E&M: 25137 Disch Hosp
--- NOTE | 2018-01-19 19:08 | PN.RENAL_ITS ---
Patient Problems: Active and Suspected Problems (Last Reviewed 01/11/18 @ 08:40 by Shirley Pearce) Anemia (Acute) Subjective: underwent endoscopy today for drop in hgb to 6.7g that showed no active bleeding. Creatinine slightly improved to 1.67 with baseline at 0.7 in Oct 2017. 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 Denies hemoptysis. Blood cx with GPC in chains. Remains on iv antibx. Still with generalized weakness. Hx PE in Oct 2017 on Eliquis. Spoke with pt family at bedside regarding kidney biopsy to determine if he has cryoglobulinemia involving kidneys. UA with proteinuria and hematuria, LAYLA. Suggested kidney biopsy and possibly need for IS therapy such as rituxan or cyclosporine vs plasma exchange. However due to recent discovery of TRAVEL REGISTERED NURSE NICU bacteremia starting IS therapy would be risky. Echo showed normal LV function. Pt with heart murmur apparently not new according to pt history. Has valvular disease with possible flail of MV. TAYLOR recommended. Discussed with family and primary service re: transfer to tertiary care center for further workup. - Physical Exam General: Alert, Oriented x3, Cooperative, - - generalized weakness HEENT: PERRLA, EOMI Oral: Moist Mucosa Lungs: Clear to auscultation Cardiovascular: Regular rate Abdomen: Bowel Sounds Present, Soft, Non Tender, Non-Distended Extremities: No edema Skin: - - petechial like purpuric rash on legs Musculoskeletal: No Muscle Wasting Neurological: Cranial nerves II-XII grossly intact Psych/Mental Status: Normal Affect, Alert and oriented to time, place, person, mood and affect Vital Signs Temp Pulse Resp BP Pulse Ox 98.8 F 85 27 H 150/94 H 95 01/19/18 18:13 01/19/18 18:13 01/19/18 18:13 01/19/18 18:13 01/19/18 18:13 Oxygen Flow Rate (L/min) 2 Oxygen Delivery Method Room Air Weight: 93.2 kg Body Mass Index (BMI) 34.0 Intake and Output for Last 24 Hours 01/17/18 01/18/18 01/19/18 23:59 23:59 23:59 Intake Total 1598 / 1598 3527 / 3527 Output Total 300 / 300 2150 / 2150 Balance 1298 / 1298 1377 / 1377 Microbiology Past 72 Hours 01/19/18 17:50 Stool Occult Blood (SHAY) - Final Stool 01/18/18 14:08 Urine Culture - Preliminary Urine, Clean Catch Culture exhibits no growth. Laboratory Tests Past 24 Hrs 01/18/18 01/19/18 01/19/18 13:40 03:32 03:32 WBC 10.1 RBC 2.50 L Hgb 6.7 L Hct 22.0 L MCV 88.0 MCH 26.8 L MCHC 30.5 L RDW 18.7 H RDW Differential 54.1 H Plt Count 121 L MPV 8.3 PT Ratio INR APTT Thrombin Time Thrombin Time Mix Lupus Anticoag aPTT Sodium 146 H Potassium 4.0 Chloride 116 H Carbon Dioxide 22.0 Anion Gap 8 BUN 48 H Creatinine 1.67 H Estim Creat Clear Calc 38.87 Est GFR (MDRD) Af Amer 53 L Est GFR (MDRD) Non-Af 44 L BUN/Creatinine Ratio 28.7 H Glucose 122 H Calcium 7.6 L Total Bilirubin 1.00 AST 16 ALT 23 Alkaline Phosphatase 44 L Total Protein 5.7 L Albumin 2.2 L Globulin 3.5 Albumin/Globulin Ratio 0.6 L Vitamin B12 376 Double Strand DNA Ab Anti-Cardiolipin IgG Ab Anti-Cardiolipin IgA Ab Anti-Cardiolipin IgM Ab 01/19/18 01/19/18 01/19/18 11:05 11:05 11:05 WBC RBC Hgb 7.3 L Hct 23.5 L MCV MCH MCHC RDW RDW Differential Plt Count MPV PT Ratio Pending INR Pending APTT Pending Thrombin Time Pending Thrombin Time Mix Pending Lupus Anticoag aPTT Pending Sodium Potassium Chloride Carbon Dioxide Anion Gap BUN Creatinine Estim Creat Clear Calc Est GFR (MDRD) Af Amer Est GFR (MDRD) Non-Af BUN/Creatinine Ratio Glucose Calcium Total Bilirubin AST ALT Alkaline Phosphatase Total Protein Albumin Globulin Albumin/Globulin Ratio Vitamin B12 Double Strand DNA Ab Pending Anti-Cardiolipin IgG Ab Pending Anti-Cardiolipin IgA Ab Pending Anti-Cardiolipin IgM Ab Pending Medical Necessity - Tobacco Use Smoking Status: Never smoker Assessment/Plan Active and Suspected Problems (Last Reviewed 01/11/18 @ 08:40 by Shirley Pearce) Anemia (Acute) 1. LAYLA FENA >1% suggestive of intrinsic renal disease. Concerned may have cryoglobulinemia involving kidneys. UA with protein and heme. Suggested kidney biopsy. Will need to hold anticoagulation for biopsy. HoldACEI for now. Baseline creatinine 0.7 in Oct 2017, progressed to 1.72 on admit now at 1.67. Blood cx with GPC in chains. Suggest transfer to tertiary care for further evaluation and treatment for cryoglobulinemia. 2. 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 3. Fever with leukocytosis on empiric antibx therapy. Bld cx with GPC. Continue iv antbx. May need TAYLOR to evaluate heart murmur (states has hx of murmur). 4. SOB with airspace disease. Consider vasculitis involving lungs but pt without hemoptysis 5. Severe iron def anemia hgb 6.7g today. 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 6. Pulm Embolus on eliquis 7. HTN hold lisinopril. 8. LAVON+ check antidsdna, anticardiolipin ab, lupus anticoagulant ab. antiphospholipid ab.
[2018-01-22 15:17] LABS: Anti-dsDNA Ab <1 IU/mL (0-9)
[2018-01-22 22:08] LABS: Dilute Russell Viper Venom 43.2 sec (0.0-47.0); PTT-LA 35.4 sec (0.0-51.9); Thrombin Time 21.9 sec (0.0-23.0); dPT Confirm Ratio 1.01 Ratio (0.00-1.40)
[2018-01-23 11:49] LABS: Anti-Cardiolipin Ab, IgA, Qn < 9 APL U/mL (0-11); Anti-Cardiolipin Ab, IgG, Qn 12 GPL U/mL (0-14); Anti-Cardiolipin Ab, IgM, Qn 15 MPL U/mL (0-12); Interpretation Comment: (.)
== END 2018-01-19 07:20 | disposition short-term general hospital (02) | DRG 811 ==
LOC: ED 09:47 → ICU 11:43
PROVIDERS: Internal Medicine Critical Care Medicine; Internal Medicine Nephrology; Surgery; Admitting Provider Internal Medicine; Emergency Provider Emergency Medicine; Family Provider Family Medicine Geriatric Medicine; PCP Family Medicine Geriatric Medicine; Visit Provider Internal Medicine
PROC: 0DJ08ZZ Inspection of Upper Intestinal Tract, Via Natural or Artificial Opening Endoscopic (ICD-10-PCS; CPT 43235; principal; 2018-01-19 11:25)
DX: D50.9 Iron deficiency anemia, unspecified (principal); I50.31 Acute diastolic (congestive) heart failure; E72.12 Methylenetetrahydrofolate reductase deficiency; N17.9 Acute kidney failure, unspecified; D63.8 Anemia in other chronic diseases classified elsewhere; I11.0 Hypertensive heart disease with heart failure; R09.02 Hypoxemia; D89.1 Cryoglobulinemia; I77.6 Arteritis, unspecified; E88.09 Other disorders of plasma-protein metabolism, not elsewhere classified; I48.0 Paroxysmal atrial fibrillation; E03.9 Hypothyroidism, unspecified; M99.03 Segmental and somatic dysfunction of lumbar region; M99.05 Segmental and somatic dysfunction of pelvic region; M51.36 Other intervertebral disc degeneration, lumbar region; F32.9 Major depressive disorder, single episode, unspecified; F41.9 Anxiety disorder, unspecified; Z79.01 Long term (current) use of anticoagulants; Z79.52 Long term (current) use of systemic steroids; Z79.899 Other long term (current) drug therapy; Z86.711 Personal history of pulmonary embolism
CPT/HCPCS: 71045; 71250; 80053; 81001; 82274; 82570; 82607; 82728; 83540; 83550; 83605; 83880; 84156; 84300; 84484; 85014; 85018; 85025; 85027; 85045; 85610; 85730; 86147; 86225; 86850; 86900; 86920; 87040; 87077; 87086; 87149; 87186; 87633; 87641; 87804; 93005; 93306; 93970; 97802; 99251; 99285; J7030; J7040; J7050; P9016; A4216; G0463

== ENCOUNTER → 2018-02-08 12:28 | Outpatient (CLI) | payer OTHER, SELFPAY ==
[2018-02-08 13:19] LABS: Absolute Lymphocyte Count 0.19 X10^3/ul (0.83-4.51); Absolute Neutrophil Count 7.3 X10^3/uL (2.0-7.7); Differential Indicated SCAN CRITERIA MET; Eosinophil# 0.02 X10^3/uL; Eosinophils% 0.3 % (0-5); Hematocrit 30.1 % (40-54); Hemoglobin 9.6 g/dl (13.0-16.5); Lymphocyte # 0.19 X10^3/ul (4.0); Lymphocyte % 2.4 % (19-41); Mean Corp Hgb Conc 31.9 g/gl (32-36); Mean Corpuscular Hgb 30.3 pg (27.0-32.0); Mean Platelet Vol. 8.8 fl (6.2-12.0); Monocyte# 0.27 X10^3/uL; Monocyte% 3.5 % (0-10); Neutrophil # 7.31 X10^3/uL (2.7-7.7); Neutrophil % 93.7 % (47-70); POSITIVE COUNT NO; POSITIVE DIFFERENTIAL YES; POSITIVE MORPHOLOGY NO; Platelet Count 97 K/mm3 (150-450); RBC Distribution Width CV 18.7 % (11.6-14.6); RBC Distribution Width SD 62.4 fl (35.1-43.9); Red Blood Count 3.17 M/mm3 (4.6-6.2); White Blood Count 7.8 K/mm3 (4.4-11.0)
[2018-02-08 15:59] LABS: Anion Gap 9 (5-15); BUN 47 mg/dL (7-18); BUN/Creat Ratio 29.6 RATIO (10-20); Calcium,Total 8.4 mg/dL (8.5-10.1); Chloride 111 mmol/L (98-107); Creatinine, Serum 1.59 mg/dL (0.70-1.30); EST Glomerular Filtration Rate 47 mL/min (>60); Est Glom Filt Rate - Afr Amer 57 mL/min (>60); Glucose 117 mg/dL (74-106); Sodium Level 141 mmol/L (136-145)
== END ==
PROVIDERS: Family Provider Family Medicine Geriatric Medicine; PCP Family Medicine Geriatric Medicine; Visit Provider Family Medicine Geriatric Medicine
DX: D64.9 Anemia, unspecified (principal)
CPT/HCPCS: 36415; 80048; 85025

== ENCOUNTER → 2018-02-19 16:55 | Outpatient (CLI) | payer OTHER, SELFPAY ==
[2018-02-19 18:02] LABS: Absolute Lymphocyte Count 0.22 X10^3/ul (0.83-4.51); Absolute Neutrophil Count 7.7 X10^3/uL (2.0-7.7); Eosinophil# 0.01 X10^3/uL; Eosinophils% 0.1 % (0-5); Hematocrit 31.1 % (40-54); Lymphocyte # 0.22 X10^3/ul (4.0); Lymphocyte % 2.7 % (19-41); Mean Corp Hgb Conc 32.2 g/gl (32-36); Mean Corpuscular Hgb 30.8 pg (27.0-32.0); Mean Corpuscular Volume 95.7 fL (80-94); Mean Platelet Vol. 8.8 fl (6.2-12.0); Monocyte# 0.22 X10^3/uL; Monocyte% 2.7 % (0-10); Neutrophil # 7.66 X10^3/uL (2.7-7.7); Neutrophil % 94.3 % (47-70); Platelet Count 127 K/mm3 (150-450); RBC Distribution Width CV 17.5 % (11.6-14.6); RBC Distribution Width SD 58.5 fl (35.1-43.9); Red Blood Count 3.25 M/mm3 (4.6-6.2); White Blood Count 8.1 K/mm3 (4.4-11.0)
[2018-02-19 18:17] LABS: Anion Gap 7 (5-15); BUN 40 mg/dL (7-18); Calcium,Total 8.5 mg/dL (8.5-10.1); Chloride 109 mmol/L (98-107); Creatinine, Serum 1.48 mg/dL (0.70-1.30); EST Glomerular Filtration Rate 51 mL/min (>60); Est Glom Filt Rate - Afr Amer 61 mL/min (>60); Glucose 129 mg/dL (74-106); Potassium 4.7 mmol/L (3.5-5.1); Sodium Level 141 mmol/L (136-145)
[2018-02-19 18:26] LABS: Differential Indicated SCAN CRITERIA MET; POSITIVE COUNT NO; POSITIVE DIFFERENTIAL YES; POSITIVE MORPHOLOGY NO
[2018-02-19 18:27] LABS: BNP,B-Type NATRIURETIC PEPTIDE 170.2 pg/mL (0-100)
[2018-02-19 18:44] LABS: Anisocytosis RARE; Macrocytosis RARE; Platelet Estimate SLT DEC (ADEQ)
== END ==
PROVIDERS: Family Provider Family Medicine Geriatric Medicine; PCP Family Medicine Geriatric Medicine; Visit Provider Family Medicine Geriatric Medicine
DX: D64.9 Anemia, unspecified (principal); R06.02 Shortness of breath
CPT/HCPCS: 36415; 80048; 83880; 85025

== ENCOUNTER → 2018-03-21 14:47 | Outpatient (CLI) | payer OTHER, SELFPAY ==
[2018-03-21 16:12] LABS: Absolute Lymphocyte Count 0.27 X10^3/ul (0.83-4.51); Absolute Neutrophil Count 11.3 X10^3/uL (2.0-7.7); Basophil# 0.01 X10^3/uL; Basophil% 0.1 % (0-1); Differential Indicated SCAN CRITERIA MET; Hematocrit 31.2 % (40-54); Hemoglobin 10.2 g/dl (13.0-16.5); Lymphocyte # 0.27 X10^3/ul (4.0); Lymphocyte % 2.2 % (19-41); Mean Corp Hgb Conc 32.7 g/gl (32-36); Mean Corpuscular Hgb 30.4 pg (27.0-32.0); Mean Corpuscular Volume 92.9 fL (80-94); Mean Platelet Vol. 8.6 fl (6.2-12.0); Monocyte# 0.32 X10^3/uL; Monocyte% 2.7 % (0-10); Neutrophil # 11.33 X10^3/uL (2.7-7.7); Neutrophil % 94.3 % (47-70); POSITIVE COUNT NO; POSITIVE DIFFERENTIAL YES; POSITIVE MORPHOLOGY NO; Platelet Count 151 K/mm3 (150-450); RBC Distribution Width CV 15.9 % (11.6-14.6); RBC Distribution Width SD 51.4 fl (35.1-43.9); Red Blood Count 3.36 M/mm3 (4.6-6.2)
[2018-03-21 16:31] LABS: Differential Comment SCANNED
[2018-03-21 16:38] LABS: ALB/GLOB Ratio 0.9 RATIO (0.9-2.4); AST(SGOT) 11 U/L (15-37); Alanine Aminotransfer ALT/SGPT 21 U/L (16-61); Albumin, Serum 3.3 g/dL (3.2-5.0); Alkaline Phosphatase 64 U/L (45-117); Anion Gap 7 (5-15); BUN 28 mg/dL (7-18); BUN/Creat Ratio 22.4 RATIO (10-20); Calcium,Total 8.7 mg/dL (8.5-10.1); Chloride 104 mmol/L (98-107); Creatinine, Serum 1.25 mg/dL (0.70-1.30); EST Glomerular Filtration Rate 62 mL/min (>60); Est Glom Filt Rate - Afr Amer 75 mL/min (>60); Globulin 3.5 g/dL (2.2-4.2); Glucose 108 mg/dL (74-106); Protein, Total 6.8 g/dL (6.4-8.2); Sodium Level 136 mmol/L (136-145)
== END ==
PROVIDERS: Family Provider Family Medicine Geriatric Medicine; PCP Family Medicine Geriatric Medicine; Visit Provider Family Medicine Geriatric Medicine
DX: I10 Essential (primary) hypertension (principal)
CPT/HCPCS: 36415; 80053; 84443; 85025

== ENCOUNTER → 2018-04-09 06:13 | Outpatient (CLI) | payer OTHER, SELFPAY ==
[2018-04-09 07:14] LABS: Hematocrit 29.6 % (40-54); Hemoglobin 9.7 g/dl (13.0-16.5); Mean Corp Hgb Conc 32.8 g/gl (32-36); Mean Corpuscular Hgb 30.2 pg (27.0-32.0); Mean Corpuscular Volume 92.2 fL (80-94); Mean Platelet Vol. 8.2 fl (6.2-12.0); Platelet Count 158 K/mm3 (150-450); RBC Distribution Width CV 15.2 % (11.6-14.6); RBC Distribution Width SD 49.6 fl (35.1-43.9); Red Blood Count 3.21 M/mm3 (4.6-6.2); White Blood Count 10.7 K/mm3 (4.4-11.0)
[2018-04-09 07:20] LABS: Scan Indicated on CBC? Y/N NO
[2018-04-09 07:36] LABS: Albumin, Serum 3.2 g/dL (3.2-5.0); BUN 34 mg/dL (7-18); BUN/Creat Ratio 21.7 RATIO (10-20); Calcium,Total 8.6 mg/dL (8.5-10.1); Chloride 107 mmol/L (98-107); Creatinine, Serum 1.57 mg/dL (0.70-1.30); EST Glomerular Filtration Rate 47 mL/min (>60); Est Glom Filt Rate - Afr Amer 57 mL/min (>60); Glucose 125 mg/dL (74-106); Phosphorus 2.8 mg/dL (2.5-4.9); Potassium 3.8 mmol/L (3.5-5.1); Sodium Level 141 mmol/L (136-145)
== END ==
PROVIDERS: Family Provider Family Medicine Geriatric Medicine; PCP Family Medicine Geriatric Medicine; Visit Provider Internal Medicine Nephrology
DX: D89.1 Cryoglobulinemia (principal); D64.9 Anemia, unspecified
CPT/HCPCS: 36415; 80069; 85027

== ENCOUNTER → 2018-05-17 18:54 | Outpatient (CLI) | payer OTHER, SELFPAY ==
--- NOTE | 2018-05-17 09:15 | CYSPIN_PTH ---
PATIENT: SOWMYA PAREDES LOC: [facility] U#:[id number] AGE/SX: 70/M ROOM: RE05/17/[address]: SHANNON Johnson : 1955 BED: DIS: SPEC #: [id number] RECD: 05/18/18 11:35 STATUS: CLINT KATELIN #: [id number] OSCAR: 05/17/18 09:[address]: Lyric Lim NP DEPT: CYTOLOGY RECD BY: Dylan Tyler ENTERED: 05/18/18 11:36 SP TYPE: CYSPIN FL OTHR DR: MD Wade Shetty Chi, Chi, MD Tissues: Urine Procedures: Pap Stain (control) Special Stain Group II Cytospin Fluid HEADER OPERATION: Not noted PRE-OP DIAGNOSIS: Hematuria TISSUE SUBMITTED: Urine for cytology DIAGNOSIS CYTOLOGY Urine for cytology (cytospin): Rare degenerating epithelial cells and blood. AM:ashley 05/21/18 CYTOLOGY STUDY Slides are reviewed. CYTOLOGY GROSS Received is 15 ml of slightly cloudy gold fluid labeled with the patient's name and and designated per the requisition as urine. Submitted for cytology preparation. 05/18/18 TC:5 CPT: 09710
[2018-05-17 18:58] LABS: Cytology, Body Fluid / CSF SEE PATHOLOGY REPORT
== END ==
PROVIDERS: Family Provider Family Medicine Geriatric Medicine; PCP Family Medicine Geriatric Medicine; Visit Provider Nurse Practitioner Adult Health
DX: R31.9 Hematuria, unspecified (principal)
CPT/HCPCS: 88108; 88313

== ENCOUNTER → 2018-05-21 11:49 | Outpatient (CLI) | payer OTHER, SELFPAY ==
[2018-05-21 12:24] LABS: Hematocrit 29.5 % (40-54); Hemoglobin 9.4 g/dl (13.0-16.5); Mean Corp Hgb Conc 31.9 g/gl (32-36); Mean Corpuscular Hgb 28.7 pg (27.0-32.0); Mean Corpuscular Volume 89.9 fL (80-94); Mean Platelet Vol. 8.2 fl (6.2-12.0); Platelet Count 164 K/mm3 (150-450); RBC Distribution Width CV 14.5 % (11.6-14.6); RBC Distribution Width SD 46.5 fl (35.1-43.9); Red Blood Count 3.28 M/mm3 (4.6-6.2); White Blood Count 10.3 K/mm3 (4.4-11.0)
[2018-05-21 12:26] LABS: Scan Indicated on CBC? Y/N NO
[2018-05-21 12:35] LABS: Protein, Urine (Random) 79.3 mg/dL (<11.9); Protein:Creat Ratio 446 mg/g CRE (0-200)
[2018-05-21 13:03] LABS: BUN 25 mg/dL (7-18); BUN/Creat Ratio 14.5 RATIO (10-20); Calcium,Total 8.7 mg/dL (8.5-10.1); Chloride 105 mmol/L (98-107); Creatinine, Serum 1.72 mg/dL (0.70-1.30); EST Glomerular Filtration Rate 43 mL/min (>60); Est Glom Filt Rate - Afr Amer 52 mL/min (>60); Glucose 128 mg/dL (74-106); Iron 21 ug/dL (65-175); Iron Binding Capacity,Total 211 ug/dL (250-450); Phosphorus 2.6 mg/dL (2.5-4.9); Potassium 4.2 mmol/L (3.5-5.1); Sodium Level 138 mmol/L (136-145)
== END ==
PROVIDERS: Family Provider Family Medicine Geriatric Medicine; PCP Family Medicine Geriatric Medicine; Visit Provider Internal Medicine Nephrology
DX: D89.1 Cryoglobulinemia (principal); D64.9 Anemia, unspecified
CPT/HCPCS: 36415; 80069; 82570; 83540; 83550; 84156; 85027

== ENCOUNTER → 2018-06-04 13:24 | Outpatient (CLI) | payer OTHER, SELFPAY ==
[2018-06-04 15:03] LABS: Absolute Neutrophil Count 10.6 X10^3/uL (2.0-7.7); Basophil# 0.01 X10^3/uL; Basophil% 0.1 % (0-1); Hematocrit 31.2 % (40-54); Hemoglobin 9.6 g/dl (13.0-16.5); Lymphocyte % 3.4 % (19-41); Mean Corp Hgb Conc 30.8 g/gl (32-36); Mean Corpuscular Hgb 27.6 pg (27.0-32.0); Mean Corpuscular Volume 89.7 fL (80-94); Monocyte# 0.61 X10^3/uL; Monocyte% 5.3 % (0-10); Neutrophil # 10.56 X10^3/uL (2.7-7.7); Neutrophil % 90.9 % (47-70); Platelet Count 179 K/mm3 (150-450); RBC Distribution Width CV 15.5 % (11.6-14.6); RBC Distribution Width SD 49.4 fl (35.1-43.9); Red Blood Count 3.48 M/mm3 (4.6-6.2); White Blood Count 11.6 K/mm3 (4.4-11.0)
[2018-06-04 15:05] LABS: Differential Indicated SCAN CRITERIA MET; POSITIVE COUNT NO; POSITIVE DIFFERENTIAL YES; POSITIVE MORPHOLOGY NO
[2018-06-04 15:09] LABS: ALB/GLOB Ratio 0.8 RATIO (0.9-2.4); AST(SGOT) 12 U/L (15-37); Alanine Aminotransfer ALT/SGPT 14 U/L (16-61); Albumin, Serum 3.2 g/dL (3.2-5.0); Alkaline Phosphatase 61 U/L (45-117); Anion Gap 14 (5-15); BUN 28 mg/dL (7-18); BUN/Creat Ratio 15.2 RATIO (10-20); Calcium,Total 8.6 mg/dL (8.5-10.1); Chloride 106 mmol/L (98-107); Creatinine, Serum 1.84 mg/dL (0.70-1.30); EST Glomerular Filtration Rate 39 mL/min (>60); Est Glom Filt Rate - Afr Amer 48 mL/min (>60); Globulin 3.9 g/dL (2.2-4.2); Glucose 105 mg/dL (74-106); Potassium 4.1 mmol/L (3.5-5.1); Protein, Total 7.1 g/dL (6.4-8.2); Sodium Level 137 mmol/L (136-145); Thyroid Stim Hormone (TSH) 3.78 uIU/mL (0.358-3.74)
[2018-06-04 15:50] LABS: Differential Comment SCANNED
== END ==
PROVIDERS: Family Provider Family Medicine Geriatric Medicine; PCP Family Medicine Geriatric Medicine; Visit Provider Family Medicine Geriatric Medicine
DX: N39.0 Urinary tract infection, site not specified (principal); R53.83 Other fatigue
CPT/HCPCS: 36415; 80053; 84443; 85025; 87086

== ENCOUNTER 2018-06-05 17:52 | Emergency (ER) | payer OTHER, SELFPAY ==
[2018-06-05 17:53] VITALS: BP 137/89; PULSE 90; RESP 16; TEMP 36.9; O2SAT 98; BMI 25.9
--- NOTE | 2018-06-05 19:24 | ED.DCSUM_ITS ---
- ER Visit Summary Date of Service: 06/05/18 Chief Complaint: Weakness History of Present Illness: The patient is a [address] Arce and Dr. Alegria at [facility]. He reports that he has a history of cryoglobulinemia with vasculitis. He states that his initial presentation for this in December was poor appetite, abdominal pain, weight loss, and anemia. States that he is on CellCept and they have been tapering down his prednisone. He has not felt well over the course the past week. States that he has had a poor appetite. He saw Dr. Fink yesterday and was given a dose of IV Solu-Medrol and placed on prednisone reports that he feels back to his baseline. He states that Dr. Fink called [facility] today to try to get him in sooner. He states that he got a call from [facility] that told him to go to the emergency department. Physical Examination: Vitals: Stable. Afebrile. General: Well-nourished and well-developed. Head: Normocephalic atraumatic. Neck: Supple, no lymphadenopathy. No JVD. Nontender. Cardiovascular: Regular rate and rhythm. No murmurs. Respiratory: No respiratory distress. Clear to auscultation bilaterally. Abdominal: Soft, nontender, nondistended, normal bowel sounds. No guarding, rebound, or peritoneal signs. Back: Nontender. Extremities: Nontender, no edema. Skin: Normal color, no rash. Neurologic: Alert and oriented ?3. Cranial nerves II through XII are intact. Normal strength and sensation. Psych: Normal affect. Emergency Department Course and Treatment: Patient is resting comfortably without complaint. He did have an episode of SVT while here. However, it converted spontaneously. Treatment Plan: Patient was discussed with Dr. Fink. He states the patient does not need to be in the emergency department. He would like him to follow- up with him at the 9:00 in the morning. Patient is happy with this plan. Return to the emergency department for any worsening symptoms. Disposition: To home in improved and stable condition. Impression: 1. Generalized weakness. 2. History of cryoglobulinemia. This note was generated with [employer] software. It may contain incorrect words, spelling, and punctuation that were not noted in review of the chart prior to signing ED Disposition - Plan for ED Patient: Disposition: Home or Assisted Living Chief Complaint: General Illness Instructions: Cryoglobulin Referrals: Wade Arce Chi, MD [Primary Care Provider] - 06/06/18 9:00 am
[2018-06-05 19:52] VITALS: BP 140/98; PULSE 98; RESP 14
--- NOTE | 2018-06-05 19:53 | ED.RN ---
ATTEMPTED TO D/C PT, WHEN TAKING VITAL SIGNS PT'S HEART RATE WAS IN THE 160'S. PT PLACED ON MONITOR, RESPIRATORY CALLED FOR ECG AND DR NUNEZ NOTIFIED. PT REPORTS THAT HE HAS FREQUENT EPISODES OF HEART PALPITATIONS IN WHICH THEY FREQUENTLY PASS. BY THE TIME ECG WAS ABOUT TO BE PREFORMED PT HAD CONVERTED BACK WITH A HEART RATE INTO THE 90'S. DR NUNEZ WAS BEDSIDE AND CANCELLED THE ECG. PT D/C HOME OF UNIT VIA AMBULATION
== END 2018-06-05 19:56 | disposition home or self-care (01) ==
PROVIDERS: Emergency Provider Emergency Medicine; Family Provider Family Medicine Geriatric Medicine; PCP Family Medicine Geriatric Medicine
DX: R53.1 Weakness (principal); R19.7 Diarrhea, unspecified; I47.1 Supraventricular tachycardia; I10 Essential (primary) hypertension; Z79.01 Long term (current) use of anticoagulants; Z79.52 Long term (current) use of systemic steroids; Z79.899 Other long term (current) drug therapy; Z86.2 Personal history of diseases of the blood and blood-forming organs and certain disorders involving the immune mechanism
CPT/HCPCS: 99282

== ENCOUNTER → 2018-06-06 10:12 | Outpatient (CLI) | payer OTHER, SELFPAY ==
[2018-06-06 12:41] LABS: Anion Gap 10 (5-15); BUN 45 mg/dL (7-18); BUN/Creat Ratio 27.4 RATIO (10-20); Calcium,Total 8.4 mg/dL (8.5-10.1); Chloride 112 mmol/L (98-107); Creatinine, Serum 1.64 mg/dL (0.70-1.30); EST Glomerular Filtration Rate 45 mL/min (>60); Est Glom Filt Rate - Afr Amer 55 mL/min (>60); Glucose 125 mg/dL (74-106); Potassium 3.9 mmol/L (3.5-5.1); Sodium Level 143 mmol/L (136-145)
== END ==
PROVIDERS: Family Provider Family Medicine Geriatric Medicine; PCP Family Medicine Geriatric Medicine; Visit Provider Family Medicine Geriatric Medicine
DX: N17.9 Acute kidney failure, unspecified (principal)
CPT/HCPCS: 36415; 80048

== ENCOUNTER → 2018-06-06 10:22 | Outpatient (CLI) | payer OTHER, SELFPAY | PROVIDERS: Family Provider Family Medicine Geriatric Medicine; PCP Family Medicine Geriatric Medicine; Visit Provider Family Medicine Geriatric Medicine | DX: R20.0 Anesthesia of skin (principal); R20.2 Paresthesia of skin | CPT/HCPCS: 70551 ==

== ENCOUNTER → 2018-06-12 11:10 | Outpatient (CLI) | payer OTHER, SELFPAY ==
[2018-06-12 11:37] LABS: Albumin, Serum 2.9 g/dL (3.2-5.0); BUN 42 mg/dL (7-18); BUN/Creat Ratio 29.2 RATIO (10-20); Calcium,Total 8.3 mg/dL (8.5-10.1); Chloride 108 mmol/L (98-107); Creatinine, Serum 1.44 mg/dL (0.70-1.30); EST Glomerular Filtration Rate 52 mL/min (>60); Est Glom Filt Rate - Afr Amer 63 mL/min (>60); Glucose 131 mg/dL (74-106); Potassium 3.9 mmol/L (3.5-5.1); Sodium Level 140 mmol/L (136-145)
== END ==
PROVIDERS: Family Provider Family Medicine Geriatric Medicine; PCP Family Medicine Geriatric Medicine; Visit Provider Internal Medicine Nephrology
DX: D50.9 Iron deficiency anemia, unspecified (principal); D89.1 Cryoglobulinemia
CPT/HCPCS: 36415; 80069

== ENCOUNTER → 2018-07-10 12:47 | Outpatient (CLI) | payer OTHER, SELFPAY ==
[2018-07-10 13:46] LABS: Absolute Lymphocyte Count 0.35 X10^3/ul (0.83-4.51); Absolute Neutrophil Count 12.9 X10^3/uL (2.0-7.7); Basophil# 0.01 X10^3/uL; Basophil% 0.1 % (0-1); Hematocrit 31.6 % (40-54); Hemoglobin 9.6 g/dl (13.0-16.5); Lymphocyte # 0.35 X10^3/ul (4.0); Lymphocyte % 2.5 % (19-41); Mean Corp Hgb Conc 30.4 g/gl (32-36); Mean Corpuscular Hgb 28.8 pg (27.0-32.0); Mean Corpuscular Volume 94.9 fL (80-94); Mean Platelet Vol. 9.5 fl (6.2-12.0); Monocyte# 0.48 X10^3/uL; Monocyte% 3.5 % (0-10); Neutrophil # 12.86 X10^3/uL (2.7-7.7); Neutrophil % 92.4 % (47-70); Platelet Count 117 K/mm3 (150-450); RBC Distribution Width CV 16.4 % (11.6-14.6); RBC Distribution Width SD 54.5 fl (35.1-43.9); Red Blood Count 3.33 M/mm3 (4.6-6.2); White Blood Count 13.9 K/mm3 (4.4-11.0)
[2018-07-10 13:48] LABS: Differential Indicated SCAN CRITERIA MET; POSITIVE COUNT NO; POSITIVE DIFFERENTIAL YES; POSITIVE MORPHOLOGY NO
[2018-07-10 14:03] LABS: Vitamin D,25 Hydroxy 47.8 ng/mL (29.95-100.01)
[2018-07-10 14:08] LABS: ALB/GLOB Ratio 0.8 RATIO (0.9-2.4); AST(SGOT) 12 U/L (15-37); Alanine Aminotransfer ALT/SGPT 20 U/L (16-61); Albumin, Serum 2.7 g/dL (3.2-5.0); Alkaline Phosphatase 68 U/L (45-117); Anion Gap 7 (5-15); BUN 27 mg/dL (7-18); Bilirubin, Direct 0.19 mg/dL (0.00-0.30); Calcium,Total 8.3 mg/dL (8.5-10.1); Chloride 108 mmol/L (98-107); Creatinine, Serum 1.35 mg/dL (0.70-1.30); EST Glomerular Filtration Rate 56 mL/min (>60); Est Glom Filt Rate - Afr Amer 68 mL/min (>60); Globulin 3.4 g/dL (2.2-4.2); Glucose 144 mg/dL (74-106); PSA,Total - Annual Screen 0.68 ng/mL (0.00-4.00); Protein, Total 6.1 g/dL (6.4-8.2); Sodium Level 141 mmol/L (136-145); Thyroid Stim Hormone (TSH) 3.32 uIU/mL (0.358-3.74)
[2018-07-11 11:28] LABS: Hep C Antibodies <0.1 s/co ratio (0.0-0.9)
== END ==
PROVIDERS: Family Provider Family Medicine Geriatric Medicine; PCP Family Medicine Geriatric Medicine; Visit Provider Internal Medicine Nephrology
DX: D89.1 Cryoglobulinemia (principal); D50.9 Iron deficiency anemia, unspecified; I10 Essential (primary) hypertension; E55.9 Vitamin D deficiency, unspecified; Z12.5 Encounter for screening for malignant neoplasm of prostate; Z13.89 Encounter for screening for other disorder
CPT/HCPCS: 36415; 80053; 82248; 82306; 84153; 84443; 85025; 86803; G0103

== ENCOUNTER 2018-11-05 12:20 | Outpatient (RCR) | payer MEDICARE, SELFPAY ==
[2018-11-05 12:56] LABS: Creatinine, Serum 1.03 mg/dL (0.70-1.30); EST Glomerular Filtration Rate 77 mL/min (>60); Est Glom Filt Rate - Afr Amer 93 mL/min (>60)
[2018-11-05 13:01] LABS: Absolute Lymphocyte Count 1.55 X10^3/ul (0.83-4.51); Absolute Neutrophil Count 8.1 X10^3/uL (2.0-7.7); Basophil# 0.09 X10^3/uL; Basophil% 0.8 % (0-1); Hemoglobin 9.8 g/dl (13.0-16.5); Lymphocyte # 1.55 X10^3/ul (4.0); Lymphocyte % 14.6 % (19-41); Mean Corp Hgb Conc 29.7 g/gl (32-36); Mean Corpuscular Hgb 26.5 pg (27.0-32.0); Mean Corpuscular Volume 89.2 fL (80-94); Mean Platelet Vol. 8.3 fl (6.2-12.0); Monocyte# 0.86 X10^3/uL; Monocyte% 8.1 % (0-10); Neutrophil % 76.1 % (47-70); Platelet Count 299 K/mm3 (150-450); RBC Distribution Width CV 15.7 % (11.6-14.6); RBC Distribution Width SD 50.5 fl (35.1-43.9); White Blood Count 10.6 K/mm3 (4.4-11.0)
[2018-11-05 13:02] LABS: POSITIVE COUNT NO; POSITIVE DIFFERENTIAL NO; POSITIVE MORPHOLOGY NO
== END 2018-11-08 23:59 ==
LOC: HHLAB 12:20
PROVIDERS: Family Provider Family Medicine Geriatric Medicine; PCP Family Medicine Geriatric Medicine
DX: I38 Endocarditis, valve unspecified (principal)
CPT/HCPCS: 82565; 85025

== ENCOUNTER 2018-12-03 13:31 | Outpatient (RCR) | payer MEDICARE, SELFPAY ==
[2018-11-12 13:21] LABS: Color, Urine Red (Yellow); Glucose, Dipstick Normal (Normal); Ketone-Dipstick 5 mg/dl (Negative); Leukocyte Esterase-Dipstick 100 /ul (Negative); Nitrite-Dipstick Positive (Negative); Occult Blood-Urine 250 /ul (Negative); Protein-Dipstick 100 mg/dl (Negative); Urine Bilirubin Dipstick 1 mg/dL (Negative); Urine Clarity Turbid (Clear); Urine Urobilinogen 1 mg/dl (Normal)
[2018-11-12 13:35] LABS: Absolute Lymphocyte Count 1.29 X10^3/ul (0.83-4.51); Absolute Neutrophil Count 4.5 X10^3/uL (2.0-7.7); Basophil# 0.08 X10^3/uL; Basophil% 1.2 % (0-1); Eosinophil# 0.01 X10^3/uL; Eosinophils% 0.1 % (0-5); Hematocrit 32.5 % (40-54); Hemoglobin 9.5 g/dl (13.0-16.5); Lymphocyte # 1.29 X10^3/ul (4.0); Lymphocyte % 19.1 % (19-41); Mean Corp Hgb Conc 29.2 g/gl (32-36); Mean Corpuscular Hgb 25.9 pg (27.0-32.0); Mean Corpuscular Volume 88.6 fL (80-94); Mean Platelet Vol. 8.9 fl (6.2-12.0); Monocyte% 13.3 % (0-10); Neutrophil # 4.47 X10^3/uL (2.7-7.7); Neutrophil % 66.2 % (47-70); Platelet Count 200 K/mm3 (150-450); RBC Distribution Width CV 15.3 % (11.6-14.6); RBC Distribution Width SD 49.6 fl (35.1-43.9); Red Blood Count 3.67 M/mm3 (4.6-6.2); White Blood Count 6.8 K/mm3 (4.4-11.0)
[2018-11-12 13:41] LABS: Creatinine, Serum 0.95 mg/dL (0.70-1.30); EST Glomerular Filtration Rate 84 mL/min (>60); Est Glom Filt Rate - Afr Amer 102 mL/min (>60)
[2018-11-12 13:42] LABS: POSITIVE COUNT NO; POSITIVE DIFFERENTIAL NO; POSITIVE MORPHOLOGY NO
[2018-11-19 13:28] LABS: Absolute Lymphocyte Count 1.43 X10^3/ul (0.83-4.51); Absolute Neutrophil Count 3.5 X10^3/uL (2.0-7.7); Basophil# 0.07 X10^3/uL; Basophil% 1.2 % (0-1); Eosinophil# 0.02 X10^3/uL; Eosinophils% 0.3 % (0-5); Hematocrit 33.5 % (40-54); Hemoglobin 9.9 g/dl (13.0-16.5); Lymphocyte # 1.43 X10^3/ul (4.0); Lymphocyte % 24.7 % (19-41); Mean Corp Hgb Conc 29.6 g/gl (32-36); Mean Corpuscular Hgb 25.8 pg (27.0-32.0); Mean Corpuscular Volume 87.5 fL (80-94); Mean Platelet Vol. 9.4 fl (6.2-12.0); Monocyte# 0.74 X10^3/uL; Monocyte% 12.8 % (0-10); Neutrophil # 3.53 X10^3/uL (2.7-7.7); Neutrophil % 60.8 % (47-70); Platelet Count 204 K/mm3 (150-450); RBC Distribution Width CV 15.4 % (11.6-14.6); RBC Distribution Width SD 49.3 fl (35.1-43.9); Red Blood Count 3.83 M/mm3 (4.6-6.2); White Blood Count 5.8 K/mm3 (4.4-11.0)
[2018-11-19 13:29] LABS: POSITIVE COUNT NO; POSITIVE DIFFERENTIAL NO; POSITIVE MORPHOLOGY NO
[2018-11-19 13:57] LABS: EST Glomerular Filtration Rate 90 mL/min (>60); Est Glom Filt Rate - Afr Amer 109 mL/min (>60)
[2018-11-26 17:17] LABS: Creatinine, Serum 0.91 mg/dL (0.70-1.30); EST Glomerular Filtration Rate 89 mL/min (>60); Est Glom Filt Rate - Afr Amer 107 mL/min (>60)
[2018-11-26 17:18] LABS: Absolute Lymphocyte Count 1.22 X10^3/ul (0.83-4.51); Absolute Neutrophil Count 3.6 X10^3/uL (2.0-7.7); Basophil# 0.03 X10^3/uL; Basophil% 0.5 % (0-1); Eosinophil# 0.02 X10^3/uL; Eosinophils% 0.4 % (0-5); Hematocrit 34.2 % (40-54); Hemoglobin 10.2 g/dl (13.0-16.5); Lymphocyte # 1.22 X10^3/ul (4.0); Lymphocyte % 21.9 % (19-41); Mean Corp Hgb Conc 29.8 g/gl (32-36); Mean Corpuscular Hgb 26.1 pg (27.0-32.0); Mean Corpuscular Volume 87.5 fL (80-94); Mean Platelet Vol. 9.3 fl (6.2-12.0); Monocyte# 0.65 X10^3/uL; Monocyte% 11.7 % (0-10); Neutrophil # 3.63 X10^3/uL (2.7-7.7); Neutrophil % 65.3 % (47-70); Platelet Count 175 K/mm3 (150-450); RBC Distribution Width CV 15.4 % (11.6-14.6); RBC Distribution Width SD 49.4 fl (35.1-43.9); Red Blood Count 3.91 M/mm3 (4.6-6.2); White Blood Count 5.6 K/mm3 (4.4-11.0)
[2018-11-26 17:22] LABS: POSITIVE COUNT NO; POSITIVE DIFFERENTIAL NO; POSITIVE MORPHOLOGY NO
[2018-12-03 13:59] LABS: Absolute Neutrophil Count 2.6 X10^3/uL (2.0-7.7); Basophil# 0.05 X10^3/uL; Basophil% 1.1 % (0-1); Eosinophil# 0.01 X10^3/uL; Eosinophils% 0.2 % (0-5); Hematocrit 33.3 % (40-54); Hemoglobin 9.8 g/dl (13.0-16.5); Lymphocyte % 27.2 % (19-41); Mean Corp Hgb Conc 29.4 g/gl (32-36); Mean Corpuscular Hgb 26.1 pg (27.0-32.0); Mean Corpuscular Volume 88.6 fL (80-94); Mean Platelet Vol. 9.2 fl (6.2-12.0); Monocyte# 0.54 X10^3/uL; Monocyte% 12.2 % (0-10); Neutrophil # 2.61 X10^3/uL (2.7-7.7); Neutrophil % 59.3 % (47-70); Platelet Count 188 K/mm3 (150-450); RBC Distribution Width CV 15.2 % (11.6-14.6); RBC Distribution Width SD 48.5 fl (35.1-43.9); Red Blood Count 3.76 M/mm3 (4.6-6.2); White Blood Count 4.4 K/mm3 (4.4-11.0)
[2018-12-03 14:01] LABS: POSITIVE COUNT NO; POSITIVE DIFFERENTIAL NO; POSITIVE MORPHOLOGY NO
[2018-12-03 14:10] LABS: Creatinine, Serum 0.87 mg/dL (0.70-1.30); EST Glomerular Filtration Rate 93 mL/min (>60); Est Glom Filt Rate - Afr Amer 113 mL/min (>60)
== END 2018-12-06 23:59 ==
LOC: HHLAB 13:31
PROVIDERS: Family Provider Family Medicine Geriatric Medicine; PCP Family Medicine Geriatric Medicine
DX: I26.99 Other pulmonary embolism without acute cor pulmonale (principal); N39.0 Urinary tract infection, site not specified; R31.9 Hematuria, unspecified; Z48.812 Encounter for surgical aftercare following surgery on the circulatory system; I33.0 Acute and subacute infective endocarditis; B95.5 Unspecified streptococcus as the cause of diseases classified elsewhere
CPT/HCPCS: 81002; 82565; 85025; 87086

== ENCOUNTER 2018-12-03 19:58 | Emergency (ER) | payer MEDICARE, OTHER, SELFPAY ==
[2018-12-03 19:58] VITALS: BP 146/110; PULSE 99; RESP 16; O2SAT 97
[2018-12-03 20:05] VITALS: BP 154/102; PULSE 111; RESP 16; TEMP 37.3; O2SAT 95; BMI 27.3
[2018-12-03 21:11] LABS: Hematocrit 31.3 % (40-54); Hemoglobin 9.3 g/dl (13.0-16.5); Mean Corp Hgb Conc 29.7 g/gl (32-36); Mean Corpuscular Hgb 26.5 pg (27.0-32.0); Mean Corpuscular Volume 89.2 fL (80-94); Mean Platelet Vol. 8.5 fl (6.2-12.0); Platelet Count 169 K/mm3 (150-450); RBC Distribution Width CV 15.3 % (11.6-14.6); RBC Distribution Width SD 49.1 fl (35.1-43.9); Red Blood Count 3.51 M/mm3 (4.6-6.2); White Blood Count 5.2 K/mm3 (4.4-11.0)
[2018-12-03 21:17] LABS: Scan Indicated on CBC? Y/N NO
[2018-12-03] MEDS: Mixture 30 ML Bottle 15 ML TOPICAL (21:43)
--- NOTE | 2018-12-04 00:05 | ED.VIS.GEN ---
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 He had an episode on and Monday which resolved. He has had significant bleeding today. He is on Coumadin. His INR has not been checked in greater than 1 week. He does not recall what his INR was. He has not been on any antibiotics and has not changed his diet. He denies bruising easily. He denies hematemesis, hematuria, melena or maroon colored stool. Prior similar symptoms: No Recent Illness/Hospitalization: No Past Medical History - Allergies and Home Meds Allergies/Adverse Reactions: Allergies Tifjeyc-Tec-Mfz Reductase Inhibitor Adverse Reaction (Severe, Verified 06/05/18 17:55) Muscle Weakness Primary Care Physician: Wade Arce Chi, MD [Primary Care Provider] - Past Medical History: - - Compound heterozygous MT HFR mutation, monoclonal gammopathy, anemia and high risk medication, Coumadin Surgical History: cataract, - - Right inguinal hernia and umbilical hernia repair Lives: Spouse/ Significant Other Smoking Status: Never smoker Alcohol: None Drugs: None - Family History Maternal Family History: Family History (Last Reviewed 08/14/18 @ 08:22 by Flavia Blanco) Father Prostate cancer Heart disease Cancer Daughter Asthma Mother Aorta aneurysm Family History: Reports: Heart Disease Paternal Family History: Family History (Last Reviewed 08/14/18 @ 08:22 by Flavia Blanco) Father Prostate cancer Heart disease Cancer Daughter Asthma Mother Aorta aneurysm Family History: Reports: Heart Disease Review of Systems General: Denies: Chills, Fever, Malaise Eyes: Denies: Visual changes - bilaterally, Blurred Vision - bilaterally, Diplopia ENT: Reports: - - Epistaxis right greater than left. Denies: Bilateral ear pain, Rhinorrhea, Sore throat Cardiovascular: Denies: Chest pain, Palpitations Respiratory: Denies: Dyspnea, Cough, Sputum, Dyspnea on exertion Gastrointestinal: Denies: Abdominal pain, Nausea, Vomiting, Melena Musculoskeletal: Denies: Myalgias, Arthralgias, Neck pain, Back pain Skin: Denies: Rash Neurological: Denies: Headache, Weakness, Parasthesia Hematologic: Denies: Easy bruising, Easy bleeding, Lymphadenopathy Allergy: Denies: Uticaria Physical Exam Inital Vital Signs reviewed: Yes General: Well nourished, Well developed, Obese Head: Normocephalic, Atraumatic Eyes: Perrl, EOMI, Pale conjunctiva. Negative for: Scleral icterus ENT: Moist mucous membranes, No rhinorrhea, TM's clear, - - Bilateral epistaxis with large clots noted Neck: Supple, Nontender, No lymphadenopathy, No JVD Cardiovascular: Regular rate, Regular rhythm, No murmurs, Normal S1, Normal S2 Respiratory: No distress, CTA bilaterally, Chest nontender Extremities: Nontender, Edema. Negative for: Tenderness Skin: No rash, Pallor. Negative for: Normal color, Cyanosis, Jaundice Neurological: Alert, Oriented x3, Cranial nerves II-XII grossly intact, Normal Strength, Normal Sensation, Normal Gait Psychological: Normal affect Diagnostic/Tx/Re-eval INR is 2.0. Hemoglobin is 8.5, which is baseline for patient. - Medical Decision Making PT/INR was obtained to evaluate over anticoagulation with Coumadin. Differential includes posterior epistaxis versus anterior. Will obtain H&H since the patient appears pale and compared to prior and will obtain PT/INR. Bilateral posterior Rhino Rocket's were placed. Patient was placed on antibiotics. He was referred to Dr. Blanco who is on for ENT. Procedures Procedure(s): Using topical anesthetic right and left nares were anesthetized. Significant clots were removed from both nares. He had no obvious bleeding noted over Calci-Mix plexus. Clots were noted above right and left inferior turbinate. He has significant amount of blood posteriorly. Bilateral posterior Rhino Rocket's were placed. A total of 10 cc of air was instilled to inflate the balloons. Patient tolerated procedure. There was minimal discomfort. ED Disposition - Plan for ED Patient: Disposition: Home or Assisted Living Instructions: Nosebleed Prescriptions: Amoxicillin 500 mg PO TID #15 tab Referrals: Wade Arce Chi, MD [Primary Care Provider] - Compa Blanco MD [STAFF PHYSICIAN] - 5-7 Days Additional Instructions: Call Dr. Blanco office in the morning to be seen in 5 days.
[2018-12-04 00:15] VITALS: BP 146/110; PULSE 96; RESP 16; O2SAT 98
[2018-12-04] MEDS: AMOXICILLIN 500 MG CAPSULE PO (00:21)
== END 2018-12-04 00:22 | disposition home or self-care (01) ==
PROVIDERS: Emergency Provider Emergency Medicine; Family Provider Family Medicine Geriatric Medicine; PCP Family Medicine Geriatric Medicine
DX: R04.0 Epistaxis (principal); E72.12 Methylenetetrahydrofolate reductase deficiency; D47.2 Monoclonal gammopathy; D64.9 Anemia, unspecified; I26.99 Other pulmonary embolism without acute cor pulmonale; N39.0 Urinary tract infection, site not specified; R31.9 Hematuria, unspecified; Z48.812 Encounter for surgical aftercare following surgery on the circulatory system; I33.0 Acute and subacute infective endocarditis; B95.5 Unspecified streptococcus as the cause of diseases classified elsewhere; Z79.01 Long term (current) use of anticoagulants; Z79.899 Other long term (current) drug therapy
CPT/HCPCS: 30905; 85027; 85610; 99283; A4216

== ENCOUNTER → 2018-12-13 12:00 | Outpatient (CLI) | payer MEDICARE, SELFPAY ==
[2018-12-12 09:14] VITALS: BMI 27.3
--- NOTE | 2018-12-13 12:40 | PCM.CR.HP2 ---
CR - History & Physical - General Arrival date:: 12/13/18 Arrival time:: 12:00 Date of Referral:: 12/05/18 Date of CR Evaluation:: 12/13/18 Referring Physician: DR. FERNANDA JIMENEZ @ [facility] Primary Diagnosis: VALVE REPAIR REPLACEMENT - History of Present Cardiac Event Onset Date: Enter Onset Date of cardiac illnesses in Comment field below Current stable Angina Pectoris:: No Acute Myocardial Infarction within 12 months:: No Coronary Artery Bypass Graft:: No Heart valve replacement or repair:: Yes - 10/23/2018 PTCA or coronary stenting:: No Heart or Heart-Lung Transplant:: No Heart Failure EF <35%:: No Type of Symptoms:: WASN'T IMPROVING FROM PREVIOUS MEDICAL ISSUE OF ENDOCRINITIS, AND STTLED ON THE MITRAL VALVE AND ENDED UP REPLACING THE MITRAL VALVE AND REPAIRED TRICUSPID AND AORTIC CLIP DONE. - Medications Home Medications: Ambulatory Orders Medication Instructions Recorded Levothyroxine [Synthroid] 25 mcg PO DAILY 05/17/16 Metoprolol Tartrate [Lopressor 12.5 mg PO DAILY 05/17/16 ([facility])] Acetaminophen [Tylenol Extra 500 mg PO PRN PRN 11/14/17 Strength] Ergocalciferol [Vitamin D] 50,000 unit PO QWEEK 06/05/18 Famotidine [Pepcid] 40 mg PO DAILY 06/05/18 Duloxetine HCl 20 mg PO DAILY 12/03/18 Warfarin [Coumadin ([facility])] 2.5 mg PO DAILY 12/03/18 Amoxicillin 500 mg PO TID #15 tab 12/04/18 Aspirin [Aspirin, Baby] 81 mg PO DAILY@0800 12/13/18 Fluticasone 0.05% [Flonase Nasal 1 spray NASAL BID PRN 12/13/18 [place]] Melatonin/Pyridoxine HCl (B6) 1 each PO 12/13/18 [Melatonin 3 mg Tablet] Sennosides/Docusate Sodium 1 each PO 12/13/18 [Senna-Docusate Sodium Tablet] - Allergies Allergies/Adverse Reactions: Allergies Axchksb-Iqg-Aro Reductase Inhibitor Adverse Reaction (Severe, Verified 06/05/18 17:55) Muscle Weakness - Sleep Disorder Evaluation Hx of Sleep Apnea: No Do you snore loudly (louder than talking or can be heard through closed doors)?: Yes Do you often feel tired/ fatigued/ sleepy during daytime?: No Has anyone observed you stop breathing during sleep?: Yes History of Hypertension (for STOP score): Yes STOP Results: Positive Advanced Directives - Advanced Directives Power of Robotics Engineer: Yes Living Will: Yes Advance Directives Information Provided: Yes Advance Directives on File: No DNR Order?:: No - MOLST See MOLST form: No Past Medical History - Past Medical Illness Medical History: Past Medical History (Last Reviewed 08/14/18 @ 08:22 by Flavia Blanco) Segmental and somatic dysfunction of pelvic region (Chronic) M99.05 Segmental and somatic dysfunction of thoracic region (Chronic) M99.02 DDD (degenerative disc disease), lumbar (Chronic) M51.36 Gastritis K29.70 Heart murmur R01.1 Hematuria R31.9 Hernia of abdominal cavity K46.9 Hypothyroid E03.9 Orthostatic hypotension I95.1 Petechiae R23.3 Pulmonary embolism I26.99 facial reconstruction history of facial reconstruction Hypertension I10 - Past Surgical History Surgical History: Past Surgical History (Last Updated 12/13/18 @ 12:50 by Lyle Borden, SENIOR MANAGEMENT CONSULTANT, CONTRACT ASSOCIATE, BS) H/O mitral valve replacement Z95.2 History of cataract surgery Z98.49 History of right inguinal hernia repair Z98.890, Z87.19 History of umbilical hernia repair Z98.890, Z87.19 Hx of appendectomy Z98.890, Z90.49 Surgical History: cataract, - - Family History Summary Family History: Family History (Last Reviewed 08/14/18 @ 08:22 by Flavia Blanco) Father Prostate cancer Heart disease Cancer Daughter Asthma Mother Aorta aneurysm Social History - Smoking History Smoking Status: Never smoker Hx Tobacco Use: No Hx Smoking Exposure: No - Alcohol Use Alcohol Usage: No - Substance Abuse Hx Substance Use: No - Occupation Occupation (List type of work in comments):: Employed Hours worked per day:: 8 - [employer] - 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 - Hobbies, Recreation, Social Activities Hobbies: Woodworking, Other Recreational Activities: I am able to engage in a few activities Social Environment - Status Marital Status: - Current Living Arrangements Living Environment:: Spouse - Children How many children do you have?: 4 Do any of your children live nearby?: Yes - ROMINA/JOSEP - Safety Do you feel safe in your surroundings?: Yes - Assistance Do you need any assistance at home?: NONE Review of Systems - Review of Systems Hints: Right click = Denies ([place]ash). Left click = Reports ([place]) Review of Present Symptoms: Reports: Shortness of Breath with Exertion - IF DOES ALOT OF ACTIVITY, Heart Arrhythmia/Irregularities - H/O PAROXYSMAL ATRIAL FIBRILLATION, Appetite - Normal - PRETTY GOOD NOW, LASTR FEW MONTHS DIDNT HAVE MUCH OF AN APPETITE AND LOST 60 POUNDS., Sleep - Normal. Denies: Shortness of Breath at Rest, Dizziness/Lightheadedness, Fatigue, Appetite - Special Diet - WATCH SODIUM INTAKE, NO SODA (POP) CAFFEINE, Sexual Changes - Pain Is Patient Pain Free?: Yes Pain Location: none Pain Level: 0/10 Risk Factor Assessment - Chief Complaint Chief Complaint: PATIENT IS A 62 YR OLD MALE WHO WAS RECENTLY SEEN FOR S/P MVR, TVR, TYLOR-ASA, BB AT THE [facility]. IMMUNE DEFICIENCY RESULTED IN INFECTION THAT EFFECTED HIS MITRAL VALVE. - Vital Signs Temperature: 98.7 F Respiratory Rate: 16 Pulse Ox: 98 Blood Pressure: 156/97 - Pulse Pulse Rate: 62 Pulse Rhythm: Regular - Hypertension How long have you been treated?: BEEN A LONG TIME NOW. ADDED THE AMALODAPINE Blood Pressure Sitting - Right Arm: 112/58 - TODAY - Blood Cholesterol/Lipids Total Cholesterol (mg/dL) Goal = less than 200 mg/dL: 158 Triglycerides (mg/dL) Goal = less than 150 mg/dL: 125 - Physical Inactivity Physical Inactivity: None - Risk Stratification Risk Guidelines: Lowest Risk: Risk Factor for Smoking, Risk Factor for Dyslipidemia, Risk Factor for Diabetes, Risk Factor for Depression, Moderate Risk: Risk Factor for Obesity, Risk Factor for Hypertension, Risk Factor for Sedentary Lifestyle - For Smoking Smoking Risk Guidelines: Smoking Low Risk: None or quit greater than 6 months ago. Smoking Moderate Risk: Smoker or quit 6 months or less ago. Smoking High Risk: Smoker - For Dyslipidemia Dyslipidemia Risk Guidelines: Low Risk: Moderate Risk: High Risk: 15-25% fat 25.1-29% fat >/= 30% fat. <7% sat fat 7-9% sat fat >9% sat fat. <150 mg chol 150-299 mg chol >/= 300 mg chol. LDL <100 LDL 100-129 LDL >/= 130. Chol/HDL ratio <5.0 Chol/HDL ratio 5.0-6.0 Chol/HDL ratio >6.0. Triglycerides <100 Triglycerides 100-149 Triglycerides >/= 150 - For Diabetes Mellitus Diabetes Risk Guidelines: Diabetes Low Risk: HgA1c <6.5% and/or FBG <120. Diabetes Moderate Risk: HgA1c 6.6-7.9% and/or FBG 120-180. Diabetes High Risk: HgA1c >/= 8% and/or FBG >180 - For Obesity/Overweight Obesity/Overweight Risk Guidelines: Obesity Low Risk: BMI <25.0. Obesity Moderate Risk: BMI 25-29.9. Obesity High Risk: BMI >/= 30.0 - For Hypertension Hypertension Risk Guidelines: Hypertension Low Risk: Systolic <120 and Diastolic <80. Hypertension Moderate Risk: Systolic 120-139 and Diastolic 80-89. Hypertension High Risk: Systolic >/= 140 and Diastolic >/= 90 - For Sedentary Lifestyle Sedentary Lifestyle Risk Guidelines: Sedentary Lifestyle Low Risk: >/= 1,500 kcal/week. Sedentary Lifestyle Moderate Risk: 700-1,499 kcal/week. Sedentary Lifestyle High Risk: < 700 kcal/week - For Depression Depression Risk Guidelines: Depression Low Risk: Not clinically depressed. Depression Moderate Risk: Mildly depressed. Depression High Risk: Clinically depressed - Family History Family History: Family History (Last Reviewed 08/14/18 @ 08:22 by Flavia Blanco) Father Prostate cancer Heart disease Cancer Daughter Asthma Mother Aorta aneurysm Motivation - Motivation to Participate On a scale of 1 to 10, how prepared are you to commit to attending program?: 10 What do you see as barriers to successfully being able to complete the program?: SCHEDULING TRANSPORTATION WITH WORKING What do you see as the benefits of succesfully completing the program? In other words, what do you hope to get out of participating in the program?: NEED TO GET MY STAMINA BACK AND STRENGTH, DECREASE SOB SO CAN RETURN TO [place] Are there issues you are dealing with that will interfere with completing the program?: LOSS OF RECENT WEIGHT AND NOT BEING ABLE TO REGAIN SOME MUSCLE. Do you have a spouse or signficant other, family or friends who will help support you to complete the program?: YES.
--- NOTE | 2018-12-13 12:47 | CR.HP_ITS ---
CR - History & Physical - General Arrival date:: 12/13/18 Arrival time:: 12:00 Date of Referral:: 12/05/18 Date of CR Evaluation:: 12/13/18 Referring Physician: DR. FERNANDA JIMENEZ @ [facility] Primary Diagnosis: VALVE REPAIR REPLACEMENT - History of Present Cardiac Event Onset Date: Enter Onset Date of cardiac illnesses in Comment field below Current stable Angina Pectoris:: No Acute Myocardial Infarction within 12 months:: No Coronary Artery Bypass Graft:: No Heart valve replacement or repair:: Yes - 10/23/2018 PTCA or coronary stenting:: No Heart or Heart-Lung Transplant:: No Heart Failure EF <35%:: No Type of Symptoms:: WASN'T IMPROVING FROM PREVIOUS MEDICAL ISSUE OF ENDOCRINITIS, AND STTLED ON THE MITRAL VALVE AND ENDED UP REPLACING THE MITRAL VALVE AND REPAIRED TRICUSPID AND AORTIC CLIP DONE. - Medications Home Medications: Ambulatory Orders Medication Instructions Recorded Levothyroxine [Synthroid] 25 mcg PO DAILY 05/17/16 Metoprolol Tartrate [Lopressor 12.5 mg PO DAILY 05/17/16 (Beta [facility]ita)] Acetaminophen [Tylenol Extra 500 mg PO PRN PRN 11/14/17 Strength] Ergocalciferol [Vitamin D] 50,000 unit PO QWEEK 06/05/18 Famotidine [Pepcid] 40 mg PO DAILY 06/05/18 Duloxetine HCl 20 mg PO DAILY 12/03/18 Warfarin [Coumadin ([facility]KC)] 2.5 mg PO DAILY 12/03/18 Amoxicillin 500 mg PO TID #15 tab 12/04/18 Aspirin [Aspirin, Baby] 81 mg PO DAILY@0800 12/13/18 Fluticasone 0.05% [Flonase Nasal 1 spray NASAL BID PRN 12/13/18 Glenn] Melatonin/Pyridoxine HCl (B6) 1 each PO 12/13/18 [Melatonin 3 mg Tablet] Sennosides/Docusate Sodium 1 each PO 12/13/18 [Senna-Docusate Sodium Tablet] - Allergies Allergies/Adverse Reactions: Allergies Tghlywz-Smb-Bgx Reductase Inhibitor Adverse Reaction (Severe, Verified 06/05/18 17:55) Muscle Weakness - Sleep Disorder Evaluation Hx of Sleep Apnea: No Do you snore loudly (louder than talking or can be heard through closed doors)?: Yes Do you often feel tired/ fatigued/ sleepy during daytime?: No Has anyone observed you stop breathing during sleep?: Yes History of Hypertension (for STOP score): Yes STOP Results: Positive Advanced Directives - Advanced Directives Power of Director Informatics: Yes Living Will: Yes Advance Directives Information Provided: Yes Advance Directives on File: No DNR Order?:: No - MOLST See MOLST form: No Past Medical History - Past Medical Illness Medical History: Past Medical History (Last Reviewed 08/14/18 @ 08:22 by Flavia Blanco) Segmental and somatic dysfunction of pelvic region (Chronic) M99.05 Segmental and somatic dysfunction of thoracic region (Chronic) M99.02 DDD (degenerative disc disease), lumbar (Chronic) M51.36 Gastritis K29.70 Heart murmur R01.1 Hematuria R31.9 Hernia of abdominal cavity K46.9 Hypothyroid E03.9 Orthostatic hypotension I95.1 Petechiae R23.3 Pulmonary embolism I26.99 facial reconstruction history of facial reconstruction Hypertension I10 - Past Surgical History Surgical History: Past Surgical History (Last Updated 12/13/18 @ 12:50 by Lyle Borden, [employer], HEALTH COACH, BS) H/O mitral valve replacement Z95.2 History of cataract surgery Z98.49 History of right inguinal hernia repair Z98.890, Z87.19 History of umbilical hernia repair Z98.890, Z87.19 Hx of appendectomy Z98.890, Z90.49 Surgical History: cataract, - - Family History Summary Family History: Family History (Last Reviewed 08/14/18 @ 08:22 by Flavia Blanco) Father Prostate cancer Heart disease Cancer Daughter Asthma Mother Aorta aneurysm Social History - Smoking History Smoking Status: Never smoker Hx Tobacco Use: No Hx Smoking Exposure: No - Alcohol Use Alcohol Usage: No - Substance Abuse Hx Substance Use: No - Occupation Occupation (List type of work in comments):: Employed Hours worked per day:: 8 - [employer] - 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 - Hobbies, Recreation, Social Activities Hobbies: Woodworking, Other Recreational Activities: I am able to engage in a few activities Social Environment - Status Marital Status: - Current Living Arrangements Living Environment:: Spouse - Children How many children do you have?: 4 Do any of your children live nearby?: Yes - ROMINA/JOSEP - Safety Do you feel safe in your surroundings?: Yes - Assistance Do you need any assistance at home?: NONE Review of Systems - Review of Systems Hints: Right click = Denies (Slash). Left click = Reports ([place]) Review of Present Symptoms: Reports: Shortness of Breath with Exertion - IF DOES ALOT OF ACTIVITY, Heart Arrhythmia/Irregularities - H/O PAROXYSMAL ATRIAL FIBRILLATION, Appetite - Normal - PRETTY GOOD NOW, LASTR FEW MONTHS DIDNT HAVE MUCH OF AN APPETITE AND LOST 60 POUNDS., Sleep - Normal. Denies: Shortness of Breath at Rest, Dizziness/Lightheadedness, Fatigue, Appetite - Special Diet - WATCH SODIUM INTAKE, NO SODA (POP) CAFFEINE, Sexual Changes - Pain Is Patient Pain Free?: Yes Pain Location: none Pain Level: 0/10 Risk Factor Assessment - Chief Complaint Chief Complaint: PATIENT IS A 62 YR OLD MALE WHO WAS RECENTLY SEEN FOR S/P MVR, TVR, TYLOR-ASA, BB AT THE [facility]. IMMUNE DEFICIENCY RESULTED IN INFECTION THAT EFFECTED HIS MITRAL VALVE. - Vital Signs Temperature: 98.7 F Respiratory Rate: 16 Pulse Ox: 98 Blood Pressure: 156/97 - Pulse Pulse Rate: 62 Pulse Rhythm: Regular - Hypertension How long have you been treated?: BEEN A LONG TIME NOW. ADDED THE AMALODAPINE Blood Pressure Sitting - Right Arm: 112/58 - TODAY - Blood Cholesterol/Lipids Total Cholesterol (mg/dL) Goal = less than 200 mg/dL: 158 Triglycerides (mg/dL) Goal = less than 150 mg/dL: 125 - Physical Inactivity Physical Inactivity: None - Risk Stratification Risk Guidelines: Lowest Risk: Risk Factor for Smoking, Risk Factor for Dyslipidemia, Risk Factor for Diabetes, Risk Factor for Depression, Moderate Risk: Risk Factor for Obesity, Risk Factor for Hypertension, Risk Factor for Sedentary Lifestyle - For Smoking Smoking Risk Guidelines: Smoking Low Risk: None or quit greater than 6 months ago. Smoking Moderate Risk: Smoker or quit 6 months or less ago. Smoking High Risk: Smoker - For Dyslipidemia Dyslipidemia Risk Guidelines: Low Risk: Moderate Risk: High Risk: 15-25% fat 25.1-29% fat >/= 30% fat. <7% sat fat 7-9% sat fat >9% sat fat. <150 mg chol 150-299 mg chol >/= 300 mg chol. LDL <100 LDL 100-129 LDL >/= 130. Chol/HDL ratio <5.0 Chol/HDL ratio 5.0-6.0 Chol/HDL ratio >6.0. Triglycerides <100 Triglycerides 100-149 Triglycerides >/= 150 - For Diabetes Mellitus Diabetes Risk Guidelines: Diabetes Low Risk: HgA1c <6.5% and/or FBG <120. Diabetes Moderate Risk: HgA1c 6.6-7.9% and/or FBG 120-180. Diabetes High Risk: HgA1c >/= 8% and/or FBG >180 - For Obesity/Overweight Obesity/Overweight Risk Guidelines: Obesity Low Risk: BMI <25.0. Obesity Moderate Risk: BMI 25-29.9. Obesity High Risk: BMI >/= 30.0 - For Hypertension Hypertension Risk Guidelines: Hypertension Low Risk: Systolic <120 and Diastolic <80. Hypertension Moderate Risk: Systolic 120-139 and Diastolic 80-89. Hypertension High Risk: Systolic >/= 140 and Diastolic >/= 90 - For Sedentary Lifestyle Sedentary Lifestyle Risk Guidelines: Sedentary Lifestyle Low Risk: >/= 1,500 kcal/week. Sedentary Lifestyle Moderate Risk: 700-1,499 kcal/week. Sedentary Lifestyle High Risk: < 700 kcal/week - For Depression Depression Risk Guidelines: Depression Low Risk: Not clinically depressed. Depression Moderate Risk: Mildly depressed. Depression High Risk: Clinically depressed - Family History Family History: Family History (Last Reviewed 08/14/18 @ 08:22 by Flavia Blanco) Father Prostate cancer Heart disease Cancer Daughter Asthma Mother Aorta aneurysm Motivation - Motivation to Participate On a scale of 1 to 10, how prepared are you to commit to attending program?: 10 What do you see as barriers to successfully being able to complete the program?: SCHEDULING TRANSPORTATION WITH WORKING What do you see as the benefits of succesfully completing the program? In other words, what do you hope to get out of participating in the program?: NEED TO GET MY STAMINA BACK AND STRENGTH, DECREASE SOB SO CAN RETURN TO [place] Are there issues you are dealing with that will interfere with completing the program?: LOSS OF RECENT WEIGHT AND NOT BEING ABLE TO REGAIN SOME MUSCLE. Do you have a spouse or signficant other, family or friends who will help support you to complete the program?: YES.
[2018-12-13 13:04] VITALS: BP 112/58; BP 156/97; PULSE 62; RESP 16; TEMP 37.1; O2SAT 98
--- NOTE | 2018-12-13 13:18 | PCM.CR.ITP ---
General Information - General Information Admitting Diagnosis: S/P MVR, TVR - Education/Goals Barriers to Learning: Hearing Impairment, Vision Impairment Individual Counseling: Initial Assessment: Abnormal Cholesterol Levels, High Blood Pressure, Overweight/Obesity Cardiac Rehabilitation Goals: 1. Maintain the individual as the primary focus of care. 2. To improve the patient's quality of life. 3. Identification of cardiac risk factors and provide cardiac risk factor management. 4. Enhance the psychosocial status of the patient. 5. Reconditioning enough to allow the patient to resume customary activities. 6. Control symptoms of cardiac disease Scale for measuring improvement of personal goals: Enter appropriate number in Comments. 2 = Unchanged. 3 = Slightly Better. 4 = Moderate Improvement. 5 = Met my Goal Personal Goals: Initial Assessment: Improve energy level, Get back to work, or to resume activities faster, Improve knowledge of cardiac disease, Improve muscle strength and endurance, Improve diet and eating habits (eat healthier), Control risk factors (learn risk factor modification) Exercise - Initial Assessment - Visit Date of Eval: 12/13/18 - Stages of Change Stages of Change:: Action - Physician Prescribed Exercise Modalities: Treadmill, Airdyne, NuStep Frequency (days/week): 3x/week for 12 weeks [36 sessions] Duration (Minutes):: 30-45 Intensity: 60-80% age predicted maximum heart rate reserve METs - Progression: 0.5-1.0 MET, RPE 11-14 WEEK: 2.5 Target Heart Rate:: 108-116 - Hypertension Do any of the following apply?: Yes, Medication Resting Blood Pressure:: 128/58 - Intervention Home Exercise/Activity Goal:: Moderate Exercise 30 min/day x 5 days/wk - Education Goals:: Warm-up, RPE BRYANT Scale, S/S, Safe Exercise, Self-Monitoring - Exercise Program Goals Exercise Program Goals: Aerobic Activity >30 min Nutrition - Initial Assessment - Program Goals Nutrition Program Goals: LDL <70. Total Cholesterol <200. HDL >45. Triglycerides <150. HgbA1C <7%. BMI <25 - Visit Date of Assessment:: 12/13/18 - Stages of Change Stages of Change:: Action - Lipids Total Cholesterol (mg/dL) Goal = less than 200 mg/dL: 158 Triglycerides (mg/dL) Goal = less than 150 mg/dL: 125 - Diabetes Diabetes:: No Insulin: No Non-Insulin Dependent?: No Do you monitor your blood sugar at home?: No - Weight Management Height: 5 ft 10 in Weight:: 178 lb Body Fat %:: 25.5 - Intervention Referral to dietitian:: No Referral to Diabetic Clinic:: No Will attend diet classes:: No - Education Gave educational materials for:: Healthy eating Tobacco - Initial Assessment - Program Goals Tobacco Program Goals: Complete smoking cessation. Attend education classes. Improve Knowledge Test score - Stage of Change Stages of Change:: Action - Learning Barriers Learning Barriers: Hearing, Vision, Ready to Learn - Tobacco Use Tobacco Use: Non-smoker Do you use smokeless tobacco?: No - Intervention Smoking Cessation Referral:: No Education Schedule Given:: Yes - Education Gave educational material for:: Coronary artery disease, Risk factors, Sexuality, Medical compliance, Cardiac A&P, Angina signs & symptoms Patient Health Questionnaire Initial Assessment 1. Little interest or pleasure in doing things: Several days 2. Feeling down, depressed, or hopeless: Several days 3. Trouble falling or staying asleep, or sleeping too much: Not at all 4. Feeling tired or having little energy: Several days 5. Poor appetite or overeating: Not at all 6. Feeling bad about yourself -- or that you are a failure or have let yourself or your family down: Several days 7. Trouble concentrating on things, such as reading the newspaper or watching television: More than half the days 8. Moving or speaking so slowly that other people could have noticed. Or the opposite - being so fidgety or restless that you have been moving around a lot more than usual: Not at all 9. Thoughts that you would be better off , or of hurting yourself in some way: Not at all How difficult have these problems made it for you to do your work, take care of things at home, or get along with other people?: Somewhat difficult Total Score: 6 JASPAL-Q SV Test - Statements CAD is a disease of the arteries in the heart: False Examples of risk factors for heart disease: True Angina is chest pain or discomfort: I Don't Know The benefits of resistance training include: True Eating more meat and dairy products: False Anti-platelet medications such as aspirin are important: I Don't Know The only effective way to manage stress: False An exercise warm-up slowly increases heart rate: True Prepared, processed foods usually have high sodium: True Depression is common after a heart attack: True The statin medications lower cholesterol: True To control blood pressure, lower the amount of sodium: True If someone gets chest discomfort during walking: False Transfats are partially hydrogenated vegetable oils: True Sleep apnea that is not treated increases the risk: True To control cholesterol, one should become a vegetarian: False Someone knows if he/she is exercising at the right level: True Diabetes cannot be prevented with exercise & health eating: True Stress is a large risk for heart attack: True A diet that can help lower blood pressure is rich in: True - Total Score Total Correct Responses: 16 Self-Efficacy Initial Assessment We would like to know how confident you are in doing certain activities. Please select your confidence level for:: Select your confidence level for the following using the scale 1-10 where 1 is not at all confident and 10 is totally confident. Your score is the average of all 6 responses. Fatigue: How confident are you that you can keep the fatigue caused by your disease from interfering with the things you want to do? Select Number: 5 Physical Discomfort or Pain: How confident are you that you can keep the physical discomfort or pain of your disease from interfering with the things you want to do? Select Number: 8 Emotional Distress: How confident are you that you can keep the emotional distress caused by your disease from interfering with the things you want to do? Select Number: 7 Other Symptoms or Health Problems: How confident are you that you can keep other symptoms or health problems from interfering with the things you want to do? Select Number: 7 Different Tasks and Activities: How confident are you that you can do the different tasks and activities needed to manage your health condition so as to reduce your need to see a doctor? Select Number: 6 Medication: How confident are you that you can do things other than just taking medication to reduce how much your illness affects your everyday life? Select Number: 8 Total Score:: 6 Nutrition Survey - Nutrition Survey Instructions Scoring Instructions: Scoring is as follows: Yes = 1 points. No = 0 point. Patient score that is >/=12 is considered to be at potential nutritional risk and could benefit from a referral to a registered dietitian. - Nutrition Survey Initial Have you lost >10 lbs over the past 2 months without trying?: No Are you following a special diet at home for diabetes, low fat, or low salt?: Yes Are you interested in meeting with a dietitian for help understanding your diet?: No Do you eat less than 3 meals a day?: No Do you eat fatty meats (wills, sausage, ribs, etc), fried foods, desserts, large amounts of salad dressings, margarine, butter, or cheese most days?: No Do you have food allergies? [Enter types in comment field]: No Do you eat in restaurants more than 3 times a week?: No Do you season food with salt, seasoning salt, or garlic salt?: Yes Do you used canned, boxed, frozen meals, or soups, seasoning packets?: No Total Score:: 2
[2018-12-13 13:56] VITALS: BP 128/58
== END ==
PROVIDERS: Family Provider Family Medicine Geriatric Medicine; PCP Family Medicine Geriatric Medicine
DX: I10 Essential (primary) hypertension (principal); Z95.2 Presence of prosthetic heart valve

== ENCOUNTER 2019-01-02 07:25 | Outpatient (RCR) | payer MEDICARE, OTHER, SELFPAY ==
[2018-12-12 09:14] VITALS: BMI 27.3
[2018-12-19 10:55] LABS: Absolute Lymphocyte Count 1.14 X10^3/ul (0.83-4.51); Basophil# 0.08 X10^3/uL; Basophil% 1.7 % (0-1); Eosinophil# 0.02 X10^3/uL; Eosinophils% 0.4 % (0-5); Hematocrit 36.7 % (40-54); Hemoglobin 10.9 g/dl (13.0-16.5); Lymphocyte # 1.14 X10^3/ul (4.0); Lymphocyte % 23.7 % (19-41); Mean Corp Hgb Conc 29.7 g/gl (32-36); Mean Corpuscular Hgb 25.9 pg (27.0-32.0); Mean Corpuscular Volume 87.2 fL (80-94); Mean Platelet Vol. 9.2 fl (6.2-12.0); Monocyte# 0.57 X10^3/uL; Monocyte% 11.8 % (0-10); Neutrophil % 62.2 % (47-70); Platelet Count 232 K/mm3 (150-450); RBC Distribution Width CV 15.7 % (11.6-14.6); RBC Distribution Width SD 50.3 fl (35.1-43.9); Red Blood Count 4.21 M/mm3 (4.6-6.2); White Blood Count 4.8 K/mm3 (4.4-11.0)
[2018-12-19 10:58] LABS: POSITIVE COUNT NO; POSITIVE DIFFERENTIAL NO; POSITIVE MORPHOLOGY NO
[2018-12-19 11:06] LABS: International Normalized Ratio 1.5
[2018-12-19 11:25] LABS: EST Glomerular Filtration Rate 80 mL/min (>60); Est Glom Filt Rate - Afr Amer 96 mL/min (>60)
[2019-01-02 09:17] LABS: Absolute Lymphocyte Count 1.27 X10^3/ul (0.83-4.51); Absolute Neutrophil Count 2.4 X10^3/uL (2.0-7.7); Basophil# 0.07 X10^3/uL; Basophil% 1.5 % (0-1); Eosinophil# 0.19 X10^3/uL; Eosinophils% 4.1 % (0-5); Hematocrit 38.3 % (40-54); Hemoglobin 11.5 g/dl (13.0-16.5); Lymphocyte # 1.27 X10^3/ul (4.0); Lymphocyte % 27.5 % (19-41); Mean Corpuscular Hgb 26.3 pg (27.0-32.0); Mean Corpuscular Volume 87.4 fL (80-94); Mean Platelet Vol. 9.6 fl (6.2-12.0); Monocyte% 15.2 % (0-10); Neutrophil # 2.37 X10^3/uL (2.7-7.7); Neutrophil % 51.5 % (47-70); POSITIVE COUNT NO; POSITIVE DIFFERENTIAL NO; POSITIVE MORPHOLOGY NO; Platelet Count 164 K/mm3 (150-450); RBC Distribution Width CV 15.8 % (11.6-14.6); RBC Distribution Width SD 49.3 fl (35.1-43.9); Red Blood Count 4.38 M/mm3 (4.6-6.2); White Blood Count 4.6 K/mm3 (4.4-11.0)
[2019-01-02 09:28] LABS: International Normalized Ratio 1.6; Prothrombin Time (Protime)PT. 18.9 SECONDS (11.7-14.9)
[2019-01-02 09:53] LABS: Creatinine, Serum 0.92 mg/dL (0.70-1.30); EST Glomerular Filtration Rate 88 mL/min (>60); Est Glom Filt Rate - Afr Amer 106 mL/min (>60)
== END 2019-01-02 08:25 | disposition home or self-care (01) ==
LOC: LAB 07:25
PROVIDERS: Family Provider Family Medicine Geriatric Medicine; PCP Family Medicine Geriatric Medicine
DX: I33.0 Acute and subacute infective endocarditis (principal); B95.5 Unspecified streptococcus as the cause of diseases classified elsewhere; Z48.812 Encounter for surgical aftercare following surgery on the circulatory system; D89.1 Cryoglobulinemia
CPT/HCPCS: 36415; 82565; 85025; 85610

== ENCOUNTER 2019-01-04 08:00 | Outpatient (RCR) | payer MEDICARE, OTHER, SELFPAY ==
[2018-12-12 09:14] VITALS: BMI 27.3
[2018-12-24 12:45] LABS: International Normalized Ratio 1.8; Prothrombin Time (Protime)PT. 20.5 SECONDS (11.7-14.9)
== END 2019-01-06 23:59 ==
LOC: CR 08:00
PROVIDERS: Family Provider Family Medicine Geriatric Medicine; PCP Family Medicine Geriatric Medicine
DX: D89.1 Cryoglobulinemia (principal); I33.0 Acute and subacute infective endocarditis
CPT/HCPCS: 36415; 85610; 93798

== ENCOUNTER → 2019-01-09 12:22 | Outpatient (CLI) | payer MEDICARE, OTHER, SELFPAY ==
[2018-12-12 09:14] VITALS: BMI 27.3
[2019-01-09 13:56] LABS: Absolute Lymphocyte Count 1.05 X10^3/ul (0.83-4.51); Basophil# 0.05 X10^3/uL; Basophil% 1.2 % (0-1); Eosinophil# 0.25 X10^3/uL; Eosinophils% 6.2 % (0-5); Hematocrit 34.2 % (40-54); Hemoglobin 10.3 g/dl (13.0-16.5); Lymphocyte # 1.05 X10^3/ul (4.0); Mean Corp Hgb Conc 30.1 g/gl (32-36); Mean Corpuscular Hgb 26.2 pg (27.0-32.0); Mean Platelet Vol. 9.1 fl (6.2-12.0); Monocyte# 0.73 X10^3/uL; Monocyte% 18.1 % (0-10); Neutrophil # 1.95 X10^3/uL (2.7-7.7); Neutrophil % 48.3 % (47-70); POSITIVE COUNT NO; POSITIVE DIFFERENTIAL NO; POSITIVE MORPHOLOGY NO; Platelet Count 185 K/mm3 (150-450); RBC Distribution Width CV 16.9 % (11.6-14.6); RBC Distribution Width SD 53.9 fl (35.1-43.9); Red Blood Count 3.93 M/mm3 (4.6-6.2)
[2019-01-09 14:08] LABS: Vitamin D,25 Hydroxy 79.4 ng/mL (29.95-100.01)
[2019-01-09 14:19] LABS: ALB/GLOB Ratio 1.1 RATIO (0.9-2.4); AST(SGOT) 30 U/L (15-37); Alanine Aminotransfer ALT/SGPT 23 U/L (16-61); Albumin, Serum 3.4 g/dL (3.2-5.0); Alkaline Phosphatase 74 U/L (45-117); Anion Gap 4 (5-15); BUN 19 mg/dL (7-18); BUN/Creat Ratio 19.7 RATIO (10-20); Calcium,Total 8.9 mg/dL (8.5-10.1); Chloride 111 mmol/L (98-107); Creatinine, Serum 0.96 mg/dL (0.70-1.30); EST Glomerular Filtration Rate 83 mL/min (>60); Est Glom Filt Rate - Afr Amer 101 mL/min (>60); Globulin 3.2 g/dL (2.2-4.2); Glucose 73 mg/dL (74-106); Protein, Total 6.6 g/dL (6.4-8.2); Sodium Level 142 mmol/L (136-145)
== END ==
PROVIDERS: Family Provider Family Medicine Geriatric Medicine; PCP Family Medicine Geriatric Medicine; Visit Provider Family Medicine Geriatric Medicine
DX: I10 Essential (primary) hypertension (principal); E55.9 Vitamin D deficiency, unspecified
CPT/HCPCS: 36415; 80053; 82306; 84443; 85025

== ENCOUNTER 2019-02-04 08:00 | Outpatient (RCR) | payer MEDICARE, OTHER, SELFPAY ==
[2018-12-12 09:14] VITALS: BMI 27.3
--- NOTE | 2019-01-11 13:01 | CR.ITP_ITS ---
General Information - General Information Admitting Diagnosis: valve repair replace - Education/Goals Cardiac Rehabilitation Goals: 1. Maintain the individual as the primary focus of care. 2. To improve the patient's quality of life. 3. Identification of cardiac risk factors and provide cardiac risk factor management. 4. Enhance the psychosocial status of the patient. 5. Reconditioning enough to allow the patient to resume customary activities. 6. Control symptoms of cardiac disease Scale for measuring improvement of personal goals: Enter appropriate number in Comments. 2 = Unchanged. 3 = Slightly Better. 4 = Moderate Improvement. 5 = Met my Goal Exercise - 30-day Assessment - Visit Date of Eval: 01/11/19 Session #:: 11 - Stages of Change Stages of Change:: Action - Physician Prescribed Exercise Modalities: Treadmill, Airdyne, NuStep Frequency (days/week): 3 Duration (Minutes):: 30-45 Intensity: 60-80% age predicted maximum heart rate reserve METs - Progression: 0.5-1.0 MET, RPE 11-14 WEEK: 4 Target Heart Rate:: 116-132 Max HR 122 - Hypertension Resting Blood Pressure:: 128/78 Peak Exercise Blood Pressure:: 132/80 - Intervention Home Exercise/Activity Goal:: Sitting Time <3 hrs/day - Education Goals:: Warm-up, RPE BRYANT Scale, S/S, Safe Exercise, Self-Monitoring - Exercise Program Goals Exercise Program Goals: Aerobic Activity >30 min, B/P <130/80 Nutrition - Initial Assessment - Program Goals Nutrition Program Goals: LDL <70. Total Cholesterol <200. HDL >45. Triglycerides <150. HgbA1C <7%. BMI <25 - Diabetes Do you monitor your blood sugar at home?: No Nutrition - 30-Day Assessment - Program Goals Nutrition Program Goals: LDL <70. Total Cholesterol <200. HDL >45. Triglycerides <150. HgbA1C <7%. BMI <25 - Visit Date of Eval: 01/11/19 - Stages of Change Stages of Change:: Action - Diabetes Diabetes:: No - Weight Management Weight:: 86.636 kg - Intervention Referral to dietitian:: No Referral to Diabetic Clinic:: No Will attend diet classes:: Yes - Education Attended class for:: Signs & symptoms of hypoglycemia, Signs & symptoms of hyperglycemia, Relate diabetes to coronary artery disease, Healthy eating Tobacco - Initial Assessment - Program Goals Tobacco Program Goals: Complete smoking cessation. Attend education classes. Improve Knowledge Test score - Learning Barriers Learning Barriers: Hearing, Vision, Ready to Learn Tobacco - 30-Day Assessment - Program Goals Tobacco Program Goals: Complete smoking cessation. Attend education classes. Improve Knowledge Test score - Stage of Change Stages of Change:: Action - Learning Barriers Learning Barriers: Participates in education - Family Support Do you have family support?: Yes - Tobacco Use Tobacco Use: Non-smoker Do you use smokeless tobacco?: No - Intervention Smoking Cessation Referral:: No Individual Education/Counseling:: No Education Schedule Given:: Yes - Education Attended class for:: Tobacco triggers, Coronary artery disease, Risk factors, Sexuality, Medical compliance, Cardiac A&P, Angina signs & symptoms Psychosocial - 30-Day Assess - Target Goals Target Goals: Assess presence or absence of depression. Using a valid screening tool, maximizes coping skills. Positive support system - Stages of Change Stages of Change:: Action - Psychosocial Test Tool Used:: HANDS Depression Questionnaire - Intervention PS - Interventions: Yes Attend Stress Management Classes, Yes Uses Stress Management Skills, No Referral to Mental Health, No Referral to [facility] Case Management, No Referral to Physician - Education Attended classes for:: Coping techniques, Signs & symptoms of depression, Stress management, Relaxation techniques - Assistive Devices Assistive Devices:: None Fall Risk Assessed:: Yes Patient Health Questionnaire 30-Day Re-eval Assessment 1. Little interest or pleasure in doing things: Several days 2. Feeling down, depressed, or hopeless: Several days 3. Trouble falling or staying asleep, or sleeping too much: Not at all 4. Feeling tired or having little energy: Several days 5. Poor appetite or overeating: Not at all 6. Feeling bad about yourself -- or that you are a failure or have let yourself or your family down: Several days 7. Trouble concentrating on things, such as reading the newspaper or watching television: More than half the days 8. Moving or speaking so slowly that other people could have noticed. Or the opposite - being so fidgety or restless that you have been moving around a lot more than usual: Not at all 9. Thoughts that you would be better off , or of hurting yourself in some way: Not at all How difficult have these problems made it for you to do your work, take care of things at home, or get along with other people?: Not difficult at all Total Score: 6 Self-Efficacy 30-Day Re-eval Assessment We would like to know how confident you are in doing certain activities. Please select your confidence level for:: Select your confidence level for the following using the scale 1-10 where 1 is not at all confident and 10 is totally confident. Your score is the average of all 6 responses. Fatigue: How confident are you that you can keep the fatigue caused by your disease from interfering with the things you want to do? Select Number: 5 Physical Discomfort or Pain: How confident are you that you can keep the physical discomfort or pain of your disease from interfering with the things you want to do? Select Number: 8 Emotional Distress: How confident are you that you can keep the emotional distress caused by your disease from interfering with the things you want to do? Select Number: 7 Other Symptoms or Health Problems: How confident are you that you can keep other symptoms or health problems from interfering with the things you want to do? Select Number: 7 Different Tasks and Activities: How confident are you that you can do the different tasks and activities needed to manage your health condition so as to reduce your need to see a doctor? Select Number: 6 Medication: How confident are you that you can do things other than just taking medication to reduce how much your illness affects your everyday life? Select Number: 8 Total Score:: 6
[2019-01-11 13:02] VITALS: BP 128/78; BP 132/80
== END 2019-02-05 23:59 ==
LOC: CR 08:00
PROVIDERS: Family Provider Family Medicine Geriatric Medicine; PCP Family Medicine Geriatric Medicine
DX: I33.0 Acute and subacute infective endocarditis (principal)
CPT/HCPCS: 93798

== ENCOUNTER → 2019-02-22 06:47 | Outpatient (CLI) | payer MEDICARE, OTHER, SELFPAY ==
[2018-12-12 09:14] VITALS: BMI 27.3
--- NOTE | 2019-02-22 06:49 | CT_ITS ---
STUDY: CT ABDOMEN AND PELVIS WITH AND WITHOUT CONTRAST REASON FOR EXAM: Male, 63 years old. Hematuria. RADIATION DOSAGE (If Supplied By Facility): CTDIvol = ( 21.71 ) mGy, DLP = ( 2404.81 ) mGycm TECHNIQUE: Transaxial images were obtained from the dome of the diaphragm to the symphysis pubis without oral contrast. 100mL IV Isovue 300 was administered. Sagittal and coronal images were reconstructed. Individualized dose optimization techniques were used for this CT. COMPARISON: Comparison is made with prior examination dated May 02, 2018. FINDINGS: Minimal degree of linear bibasilar scarring. Coronary artery calcification. Several small subcentimeters cysts are seen in the liver. Once again, there is a stable 2 cm indeterminate soft tissue density in the peripheral aspect of the left lobe of the liver with enhancement. This may represent a small hemangioma. Normal gallbladder and extrahepatic biliary system. Normal spleen. Normal pancreas. Normal bilateral adrenal glands. Punctate nonobstructive calculus in the lower pole calyx of the right kidney. Stable small bilateral parapelvic renal cysts. Nonspecific bilateral perinephric stranding. Atherosclerotic plaque in the renal arteries bilaterally including intrarenal branches. Normal visualized stomach. Normal small intestine. There are multiple colonic diverticula consistent with diverticulosis. History of prior appendectomy. There is diffuse atherosclerotic calcification of the abdominal aorta, without a demonstrated aneurysm. Normal inferior vena cava. Normal retroperitoneum. The bladder is not adequately distended. There are prostatic calcifications. There is a left-sided inguinal hernia containing adipose tissue. There are mild degenerative changes of the visualized lumbar spine. CT/CT Abd/Pelvis W/WO Contrast IMPRESSION: Stable examination. Electronically Signed: Antoni Lawson, at 10:21 EDT , Service support ,
[2019-02-22 07:15] LABS: EGFR FINGERSTICK > 60.0000 mL/min (>60)
== END ==
PROVIDERS: Family Provider Family Medicine Geriatric Medicine; PCP Family Medicine Geriatric Medicine; Referring Provider Nurse Practitioner Adult Health; Visit Provider Nurse Practitioner Adult Health
DX: R31.0 Gross hematuria (principal)
CPT/HCPCS: 74178; Q9967

== ENCOUNTER 2019-03-08 08:00 | Outpatient (RCR) | payer MEDICARE, OTHER, SELFPAY ==
[2018-12-12 09:14] VITALS: BMI 27.3
[2019-02-06 01:30] VITALS: BP 128/78; BP 132/80
[2019-02-11 08:24] VITALS: BP 112/64; BP 112/66
--- NOTE | 2019-02-11 08:24 | CR.ITP_ITS ---
General Information - General Information Admitting Diagnosis: valve repair replacement - Education/Goals Cardiac Rehabilitation Goals: 1. Maintain the individual as the primary focus of care. 2. To improve the patient's quality of life. 3. Identification of cardiac risk factors and provide cardiac risk factor management. 4. Enhance the psychosocial status of the patient. 5. Reconditioning enough to allow the patient to resume customary activities. 6. Control symptoms of cardiac disease Scale for measuring improvement of personal goals: Enter appropriate number in Comments. 2 = Unchanged. 3 = Slightly Better. 4 = Moderate Improvement. 5 = Met my Goal Exercise - 60-Day Assessment - Visit Date of Eval: 02/11/19 Session #:: 24 - Stages of Change Stages of Change:: Action - Physician Prescribed Exercise Modalities: Treadmill, Airdyne, NuStep Frequency (days/week): 3 Duration (Minutes):: 30-45 Intensity: 60-80% age predicted maximum heart rate reserve METs - Progression: 0.5-1.0 MET, RPE 11-14 WEEK: 4.4 Target Heart Rate:: 116-132 Max HR 118 - Hypertension Resting Blood Pressure:: 112/64 Peak Exercise Blood Pressure:: 112/66 Medication Changes:: No - Intervention Home Exercise/Activity Goal:: Sitting Time <3 hrs/day - Education Goals:: Warm-up, RPE BRYANT Scale, S/S, Safe Exercise, Self-Monitoring - Exercise Program Goals Exercise Program Goals: Aerobic Activity >30 min, B/P <130/80 Nutrition - Initial Assessment - Program Goals Nutrition Program Goals: LDL <70. Total Cholesterol <200. HDL >45. Triglycerides <150. HgbA1C <7%. BMI <25 - Diabetes Do you monitor your blood sugar at home?: No Nutrition - 60-Day Assessment - Program Goals Nutrition Program Goals: LDL <70. Total Cholesterol <200. HDL >45. Triglycerides <150. HgbA1C <7%. BMI <25 - Visit Date of Eval: 02/11/19 - Stages of Change Stages of Change:: Action - Weight Management Weight:: 190.5 kg - Intervention Referral to dietitian:: No Referral to Diabetic Clinic:: No Will attend diet classes:: Yes - Education Attended class for:: Signs & symptoms of hypoglycemia, Signs & symptoms of hyperglycemia, Relate diabetes to coronary artery disease, Healthy eating Tobacco - Initial Assessment - Program Goals Tobacco Program Goals: Complete smoking cessation. Attend education classes. Improve Knowledge Test score - Learning Barriers Learning Barriers: Hearing, Vision, Ready to Learn Tobacco - 60-Day Assessment - Program Goals Tobacco Program Goals: Complete smoking cessation. Attend education classes. Improve Knowledge Test score - Stage of Change Stages of Change:: Action - Learning Barriers Learning Barriers: Participates in education - Family Support Do you have family support?: Yes - Tobacco Use Tobacco Use: Non-smoker Do you use smokeless tobacco?: No - Intervention Smoking Cessation Referral:: No Individual Education/Counseling:: No Education Schedule Given:: Yes - Education Attended class for:: Tobacco triggers, Coronary artery disease, Risk factors, Sexuality, Medical compliance, Cardiac A&P, Angina signs & symptoms Psychosocial - Initial Assess - Target Goals Target Goals: Assess presence or absence of depression. Using a valid screening tool, maximizes coping skills. Positive support system - Psychosocial Test Tool Used:: HANDS Depression Questionnaire - Assistive Devices Fall Risk Assessed:: Yes Psychosocial - 60-Day Assess - Target Goals Target Goals: Assess presence or absence of depression. Using a valid screening tool, maximizes coping skills. Positive support system - Stages of Change Stages of Change:: Action - Psychosocial Test Tool Used:: HANDS Depression Questionnaire - Intervention PS - Interventions: Yes Attend Stress Management Classes, Yes Uses Stress Management Skills, No Referral to Mental Health, No Referral to [facility] Case Management, No Referral to Physician - Education Attended classes for:: Coping techniques, Signs & symptoms of depression, Stress management, Relaxation techniques - Assistive Devices Assistive Devices:: None Fall Risk Assessed:: Yes Patient Health Questionnaire 60-Day Re-eval Assessment 1. Little interest or pleasure in doing things: Several days 2. Feeling down, depressed, or hopeless: Several days 3. Trouble falling or staying asleep, or sleeping too much: Not at all 4. Feeling tired or having little energy: Several days 5. Poor appetite or overeating: Not at all 6. Feeling bad about yourself -- or that you are a failure or have let yourself or your family down: Several days 7. Trouble concentrating on things, such as reading the newspaper or watching television: More than half the days 8. Moving or speaking so slowly that other people could have noticed. Or the opposite - being so fidgety or restless that you have been moving around a lot more than usual: Not at all 9. Thoughts that you would be better off , or of hurting yourself in some way: Not at all How difficult have these problems made it for you to do your work, take care of things at home, or get along with other people?: Not difficult at all Total Score: 6 Self-Efficacy 60-Day Re-eval Assessment We would like to know how confident you are in doing certain activities. Please select your confidence level for:: Select your confidence level for the following using the scale 1-10 where 1 is not at all confident and 10 is totally confident. Your score is the average of all 6 responses. Fatigue: How confident are you that you can keep the fatigue caused by your disease from interfering with the things you want to do? Select Number: 5 Physical Discomfort or Pain: How confident are you that you can keep the physical discomfort or pain of your disease from interfering with the things you want to do? Select Number: 8 Emotional Distress: How confident are you that you can keep the emotional distress caused by your disease from interfering with the things you want to do? Select Number: 7 Other Symptoms or Health Problems: How confident are you that you can keep other symptoms or health problems from interfering with the things you want to do? Select Number: 7 Different Tasks and Activities: How confident are you that you can do the different tasks and activities needed to manage your health condition so as to reduce your need to see a doctor? Select Number: 6 Medication: How confident are you that you can do things other than just taking medication to reduce how much your illness affects your everyday life? Select Number: 8 Total Score:: 6
== END 2019-03-08 23:59 ==
LOC: CR 08:00
PROVIDERS: Family Provider Family Medicine Geriatric Medicine; PCP Family Medicine Geriatric Medicine
DX: D89.1 Cryoglobulinemia (principal); I33.0 Acute and subacute infective endocarditis
CPT/HCPCS: 93798

== ENCOUNTER 2019-03-11 06:30 | Outpatient (RCR) | payer MEDICARE, OTHER, SELFPAY ==
[2018-12-12 09:14] VITALS: BMI 27.3
[2019-03-09 00:58] VITALS: BP 112/64; BP 112/66
[2019-03-11 11:28] VITALS: BP 128/82; BP 130/70
--- NOTE | 2019-03-11 11:28 | CR.ITP_ITS ---
General Information - General Information Admitting Diagnosis: Valve repair/replace - Education/Goals Cardiac Rehabilitation Goals: 1. Maintain the individual as the primary focus of care. 2. To improve the patient's quality of life. 3. Identification of cardiac risk factors and provide cardiac risk factor management. 4. Enhance the psychosocial status of the patient. 5. Reconditioning enough to allow the patient to resume customary activities. 6. Control symptoms of cardiac disease Scale for measuring improvement of personal goals: Enter appropriate number in Comments. 2 = Unchanged. 3 = Slightly Better. 4 = Moderate Improvement. 5 = Met my Goal Exercise - 90-Day Assessment - Visit Date of Eval: 03/11/19 Session #:: 36 - Stages of Change Stages of Change:: Action - Physician Prescribed Exercise Modalities: Treadmill, Airdyne, NuStep Frequency (days/week): 3 Duration (Minutes):: 30-45 Intensity: 60-80% age predicted maximum heart rate reserve METs - Progression: 0.5-1.0 MET, RPE 11-14 WEEK: 5.5 Target Heart Rate:: 116-132 Max HR 124 - Hypertension Resting Blood Pressure:: 128/82 Peak Exercise Blood Pressure:: 130/70 - Intervention Home Exercise/Activity Goal:: Sitting Time <3 hrs/day - Education Goals:: Warm-up, RPE BRYANT Scale, S/S, Safe Exercise, Self-Monitoring - Exercise Program Goals Exercise Program Goals: Aerobic Activity >30 min, B/P <130/80 Nutrition - Initial Assessment - Program Goals Nutrition Program Goals: LDL <70. Total Cholesterol <200. HDL >45. Triglycerides <150. HgbA1C <7%. BMI <25 - Diabetes Do you monitor your blood sugar at home?: No Nutrition - 90-Day Assessment - Program Goals Nutrition Program Goals: LDL <70. Total Cholesterol <200. HDL >45. Triglycerides <150. HgbA1C <7%. BMI <25 - Visit Date of Eval: 03/11/19 - Stages of Change Stages of Change:: Action - Weight Management Weight:: 87.09 kg - Intervention Referral to dietitian:: No Referral to Diabetic Clinic:: No Will attend diet classes:: Yes - Education Attended class for:: Signs & symptoms of hypoglycemia, Signs & symptoms of hyperglycemia, Relate diabetes to coronary artery disease Tobacco - Initial Assessment - Program Goals Tobacco Program Goals: Complete smoking cessation. Attend education classes. Improve Knowledge Test score - Learning Barriers Learning Barriers: Hearing, Vision, Ready to Learn Tobacco - 90-Day Assessment - Program Goals Tobacco Program Goals: Complete smoking cessation. Attend education classes. Improve Knowledge Test score - Stage of Change Stages of Change:: Action - Learning Barriers Learning Barriers: Participates in education - Family Support Do you have family support?: Yes - Tobacco Use Tobacco Use: Non-smoker Do you use smokeless tobacco?: No - Intervention Smoking Cessation Referral:: No Individual Education/Counseling:: No Education Schedule Given:: Yes - Education Attended class for:: Tobacco triggers, Coronary artery disease, Risk factors, Sexuality, Medical compliance, Cardiac A&P, Angina signs & symptoms Psychosocial - Initial Assess - Target Goals Target Goals: Assess presence or absence of depression. Using a valid screening tool, maximizes coping skills. Positive support system - Psychosocial Test Tool Used:: HANDS Depression Questionnaire - Assistive Devices Fall Risk Assessed:: Yes Psychosocial - 90-Day Assess - Target Goals Target Goals: Assess presence or absence of depression. Using a valid screening tool, maximizes coping skills. Positive support system - Stages of Change Stages of Change:: Action - Psychosocial Test Tool Used:: HANDS Depression Questionnaire - Intervention PS - Interventions: Yes Attend Stress Management Classes, Yes Uses Stress Management Skills, No Referral to Mental Health, No Referral to [facility] Case Management, No Referral to Physician - Education Attended classes for:: Coping techniques, Signs & symptoms of depression, Stress management, Relaxation techniques - Assistive Devices Assistive Devices:: None Fall Risk Assessed:: Yes Patient Health Questionnaire 90-Day Re-eval Assessment 1. Little interest or pleasure in doing things: Several days 2. Feeling down, depressed, or hopeless: Several days 3. Trouble falling or staying asleep, or sleeping too much: Not at all 4. Feeling tired or having little energy: Several days 5. Poor appetite or overeating: Not at all 6. Feeling bad about yourself -- or that you are a failure or have let yourself or your family down: Not at all 7. Trouble concentrating on things, such as reading the newspaper or watching television: Several days 8. Moving or speaking so slowly that other people could have noticed. Or the opposite - being so fidgety or restless that you have been moving around a lot more than usual: Not at all 9. Thoughts that you would be better off , or of hurting yourself in some way: Not at all How difficult have these problems made it for you to do your work, take care of things at home, or get along with other people?: Not difficult at all Total Score: 4 Self-Efficacy 90-Day Re-eval Assessment We would like to know how confident you are in doing certain activities. Please select your confidence level for:: Select your confidence level for the following using the scale 1-10 where 1 is not at all confident and 10 is totally confident. Your score is the average of all 6 responses. Fatigue: How confident are you that you can keep the fatigue caused by your disease from interfering with the things you want to do? Select Number: 8 Physical Discomfort or Pain: How confident are you that you can keep the physical discomfort or pain of your disease from interfering with the things you want to do? Select Number: 8 Emotional Distress: How confident are you that you can keep the emotional distress caused by your disease from interfering with the things you want to do? Select Number: 7 Other Symptoms or Health Problems: How confident are you that you can keep other symptoms or health problems from interfering with the things you want to do? Select Number: 7 Different Tasks and Activities: How confident are you that you can do the different tasks and activities needed to manage your health condition so as to reduce your need to see a doctor? Select Number: 8 Medication: How confident are you that you can do things other than just taking medication to reduce how much your illness affects your everyday life? Select Number: 9 Total Score:: 7
== END 2019-04-07 23:59 ==
LOC: CR 06:30
PROVIDERS: Family Provider Family Medicine Geriatric Medicine; PCP Family Medicine Geriatric Medicine
DX: D89.1 Cryoglobulinemia (principal); I33.0 Acute and subacute infective endocarditis
CPT/HCPCS: 93798

== ENCOUNTER → 2019-03-11 09:04 | Outpatient (CLI) | payer MEDICARE, OTHER, SELFPAY ==
[2018-12-12 09:14] VITALS: BMI 27.3
[2019-03-11 12:56] LABS: Thyroid Stim Hormone (TSH) 2.17 uIU/mL (0.358-3.74)
== END ==
PROVIDERS: Family Provider Family Medicine Geriatric Medicine; PCP Family Medicine Geriatric Medicine; Visit Provider Family Medicine Geriatric Medicine
DX: E03.9 Hypothyroidism, unspecified (principal)
CPT/HCPCS: 36415; 84443

== ENCOUNTER → 2019-03-19 12:13 | Outpatient (CLI) | payer MEDICARE, OTHER, SELFPAY ==
[2018-12-12 09:14] VITALS: BMI 27.3
== END ==
PROVIDERS: Family Provider Family Medicine Geriatric Medicine; PCP Family Medicine Geriatric Medicine; Visit Provider Family Medicine Geriatric Medicine
DX: N39.0 Urinary tract infection, site not specified (principal)
CPT/HCPCS: 87086

== ENCOUNTER → 2019-04-09 10:54 | Outpatient (CLI) | payer OTHER, MEDICARE, SELFPAY ==
[2018-12-12 09:14] VITALS: BMI 27.3
[2019-04-09 12:50] LABS: Absolute Lymphocyte Count 1.05 X10^3/ul (0.83-4.51); Absolute Neutrophil Count 2.6 X10^3/uL (2.0-7.7); Basophil# 0.02 X10^3/uL; Basophil% 0.5 % (0-1); Eosinophil# 0.07 X10^3/uL; Eosinophils% 1.7 % (0-5); Hematocrit 40.9 % (40-54); Lymphocyte # 1.05 X10^3/ul (4.0); Lymphocyte % 24.8 % (19-41); Mean Corp Hgb Conc 34.2 g/gl (32-36); Mean Corpuscular Hgb 28.9 pg (27.0-32.0); Mean Corpuscular Volume 84.5 fL (80-94); Mean Platelet Vol. 10.1 fl (6.2-12.0); Monocyte# 0.48 X10^3/uL; Monocyte% 11.3 % (0-10); Neutrophil # 2.62 X10^3/uL (2.7-7.7); Neutrophil % 61.7 % (47-70); Platelet Count 149 K/mm3 (150-450); RBC Distribution Width CV 14.5 % (11.6-14.6); RBC Distribution Width SD 45.2 fl (35.1-43.9); Red Blood Count 4.84 M/mm3 (4.6-6.2); White Blood Count 4.2 K/mm3 (4.4-11.0)
[2019-04-09 12:51] LABS: POSITIVE COUNT NO; POSITIVE DIFFERENTIAL NO; POSITIVE MORPHOLOGY NO
[2019-04-09 13:05] LABS: Vitamin D,25 Hydroxy 64.8 ng/mL (29.95-100.01)
[2019-04-09 13:07] LABS: ALB/GLOB Ratio 1.1 RATIO (0.9-2.4); AST(SGOT) 18 U/L (15-37); Alanine Aminotransfer ALT/SGPT 22 U/L (16-61); Albumin, Serum 3.9 g/dL (3.2-5.0); Alkaline Phosphatase 93 U/L (45-117); Anion Gap 7 (5-15); BUN 21 mg/dL (7-18); BUN/Creat Ratio 20.2 RATIO (10-20); Calcium,Total 9.2 mg/dL (8.5-10.1); Chloride 110 mmol/L (98-107); Creatinine, Serum 1.04 mg/dL (0.70-1.30); EST Glomerular Filtration Rate 76 mL/min (>60); Est Glom Filt Rate - Afr Amer 92 mL/min (>60); Globulin 3.5 g/dL (2.2-4.2); Glucose 85 mg/dL (74-106); Potassium 3.9 mmol/L (3.5-5.1); Protein, Total 7.4 g/dL (6.4-8.2); Sodium Level 141 mmol/L (136-145); Thyroid Stim Hormone (TSH) 2.16 uIU/mL (0.358-3.74)
== END ==
PROVIDERS: Family Provider Family Medicine Geriatric Medicine; PCP Family Medicine Geriatric Medicine; Visit Provider Family Medicine Geriatric Medicine
DX: E55.9 Vitamin D deficiency, unspecified (principal); I10 Essential (primary) hypertension
CPT/HCPCS: 36415; 80053; 82306; 84443; 85025

== ENCOUNTER → 2019-04-16 16:32 | Outpatient (CLI) | payer OTHER, MEDICARE, SELFPAY ==
[2018-12-12 09:14] VITALS: BMI 27.3
--- NOTE | 2019-04-16 16:36 | CT_ITS ---
STUDY: CT SOFT TISSUE NECK WITH CONTRAST REASON FOR EXAM: Male, 63 years old. Right neck mass marked with BB RADIATION DOSAGE (If Supplied By Facility): CTDIvol = ( 20.81 ) mGy, DLP = ( 613.12 ) mGycm TECHNIQUE: The patient was scanned in a multi-detector CT scanner. High resolution transaxial imaging was performed following intravenous administration of 100ml IV Isovue 300. Sagittal and coronal images were reconstructed. Individualized dose optimization techniques were used for this CT. COMPARISON: None. FINDINGS: Normal bilateral parotid glands. Normal bilateral machinist mechanic spaces. Normal bilateral parapharyngeal spaces. Normal bilateral carotid spaces. Normal bilateral sublingual and submandibular glands and spaces. Normal visualized nasopharynx. Normal retropharyngeal space. Normal perivertebral space. Normal visualized bilateral faucial tonsils. The visualized tongue, tongue base and oropharynx are normal. The visualized cervical lymph nodes (levels I-) are within normal size limits, and maintain normal morphology. There is no demonstrated solid or cystic mass lesion. There is no abnormal contrast enhancement. Normal epiglottis, bilateral vallecula and hypopharynx. The pre-epiglottic and paraglottic adipose spaces are normal. Normal visualized bilateral piriform sinuses, aryepiglottic folds, vocal cords, and arytenoid-cricoid articulations. Normal subglottic trachea. Normal bilateral lobes of the thyroid gland. Normal visualized pulmonary apices. The metallic BB is placed over the right sternocleidomastoid muscle which appears unremarkable and symmetric relative to that seen on the left side. Probable chronic complex inflammatory disease involving the left maxillary sinus with sclerosis of the antral nunn.. There is occlusion of the sinus ostium and infundibulum. The soft tissue density appears to be extending into the nasal cavity possibly due to presence of antrochoanal polyp. Neoplasm not entirely excluded. Cervical spine demonstrates advanced spondylosis.. Postsurgical change status post median sternotomy CT/Soft Tissue Neck WITH Contrast IMPRESSION: No evidence for focal neck mass at site of metallic BB. Prominent complex appearing left maxillary sinus disease. Electronically Signed: Villa Andre MD at 17:30 EDT , Service support ,
--- NOTE | 2019-04-16 16:55 | RAD_ITS ---
STUDY: X-RAY - RIGHT CLAVICLE REASON FOR EXAM: Male, 63 years old. Medial clavicle area mass TECHNIQUE: 2 view(s) of the clavicle. COMPARISON: None. FINDINGS: Deformity of the distal clavicle secondary to old healed fracture. Normal acromioclavicular articulation. Normal visualized sternoclavicular articulation. Normal visualized pulmonary apex. RAD/Clavicle IMPRESSION: Old healed fracture of distal clavicle. If concern for soft tissue mass CT would be helpful for further evaluation Electronically Signed: Villa Andre MD at 21:31 EDT , Service support ,
== END ==
PROVIDERS: Family Provider Family Medicine Geriatric Medicine; PCP Family Medicine Geriatric Medicine; Referring Provider Family Medicine Geriatric Medicine; Visit Provider Family Medicine Geriatric Medicine
DX: R22.0 Localized swelling, mass and lump, head (principal); M25.519 Pain in unspecified shoulder
CPT/HCPCS: 70491; 73000; Q9967

== ENCOUNTER → 2019-04-18 13:50 | Outpatient (CLI) | payer OTHER, MEDICARE, SELFPAY ==
[2018-12-12 09:14] VITALS: BMI 27.3
--- NOTE | 2019-04-18 13:52 | BI_ITS ---
MAMMOGRAPHY - BILATERAL DIAGNOSTIC REASON FOR EXAM: Male, 63 years old. 3 week history of left nipple pain. PERTINENT HISTORY: Non-contributory. TECHNIQUE: Digital bilateral breast alex (3D mammographic acquisition) in the CC and MLO projections. 2-D mediolateral oblique (MLO) and craniocaudad (CC) views of both breasts were obtained. CAD: Full Field Digital Mammography with Computer Added Detection was performed. COMPARISON: None. Baseline examination. FINDINGS: Breast Composition: Asymmetrical breast density in the left retroareolar region as compared to the right side. This most likely presents with gynecomastia. Correlation with ultrasound is recommended. No other significant abnormalities are identified. BI/DIAG MAMM W/CAD, BILAT IMPRESSION: Asymmetrical breast tissue in the retroareolar region of the left breast as described. This most likely represents gynecomastia. Correlation with ultrasound is recommended. ASSESSMENT CATEGORY: BIRADS Category 0: Incomplete. Need additional imaging evaluation. A letter regarding these results will be sent to the patient by the facility within 30 days. Approximately 10% of breast cancers are not detected by mammography. A normal mammogram should not delay biopsy of a clinically suspicious abnormality. Electronically Signed: Antoni Lawson, at 15:42 EDT , Service support ,
--- NOTE | 2019-04-18 13:53 | US_ITS ---
STUDY: ULTRASOUND BREAST - LEFT REASON FOR EXAM: Male, 63 years old. Pain in the left breast. TECHNIQUE: Axial and longitudinal images of the LEFT breast were performed with a high resolution ultrasound transducer. COMPARISON: Comparison is made with prior mammogram done earlier in the day. FINDINGS: LEFT Breast: In the retroareolar region of the breast, there is a 1.3 cm x 1.7 cm x 0.7 cm hypoechoic slightly irregular nodular density. This corresponds to the patient's area of pain. A biopsy is recommended for further evaluation. US/Breast Limited Unilateral IMPRESSION: 1.3 cm x 1.7 cm x 0.7 cm hypoechoic irregular nodule in the retroareolar region of the breast. A biopsy is recommended. ASSESSMENT CATEGORY: BIRADS Category 4: Suspicious - Biopsy Should Be Considered. A letter regarding these results will be sent to the patient by the facility within 30 days. Electronically Signed: Antoni Lawson, at 8:32 EDT , Service support ,
--- NOTE | 2019-04-18 14:49 | CT_ITS ---
STUDY: CT CHEST WITH CONTRAST REASON FOR EXAM: Male, 63 years old. Old right distal clavicle fracture. RADIATION DOSAGE (If Supplied By Facility): CTDIvol = ( 15.07 ) mGy, DLP = ( 613.05 ) mGycm TECHNIQUE: Transaxial imaging was performed following intravenous administration of 100cc ml of Isovue 300 contrast material. Coronal and sagittal reformatted images were created. Individualized dose optimization techniques were used for this CT. COMPARISON: 01/18/2018 FINDINGS: The previously seen congestive changes have resolved. There is dependent atelectasis noted in the lungs. There are no pulmonary infiltrates or pleural effusions. There is a 4 mm nodule in the right lower lobe (image 80 series 4) which is stable when compared with the prior exam. There is a stable 5 mm nodule in the right middle lobe (image 87 series 4) which is stable when compared with the prior exam. There is no pneumothorax. The heart and pericardium are within normal limits. The patient is status post sternotomy and coronary artery bypass. There is no thoracic lymphadenopathy. There is no evidence of thoracic aortic aneurysm. Images through the upper abdomen demonstrate no significant abnormality. There is an old, healed fracture of the right distal clavicle. There is no acute fracture or dislocation. There is no soft tissue mass identified adjacent to the right clavicle. CT/Chest WITH Contrast IMPRESSION: Bibasilar atelectasis. No pulmonary infiltrates or pleural effusions. No pulmonary vascular congestion. Stable subcentimeter pulmonary nodules, measuring up to 5 mm in the right middle lobe. A follow up CT in 6-12 months is recommended. Old, healed fracture of the right distal clavicle. No soft tissue mass identified adjacent to the right clavicle. Electronically Signed: Preston Carrasquillo, at 17:02 EDT Tel , Service support ,
== END ==
PROVIDERS: Family Provider Family Medicine Geriatric Medicine; PCP Family Medicine Geriatric Medicine; Referring Provider Family Medicine Geriatric Medicine; Visit Provider Family Medicine Geriatric Medicine
DX: N64.4 Mastodynia (principal)
CPT/HCPCS: 71260; 76642; 77062; 77066; Q9967; G0279

== ENCOUNTER → 2019-05-09 13:15 | Outpatient (CLI) | payer OTHER, MEDICARE, SELFPAY ==
--- NOTE | 2019-05-09 | BRBX_PTH ---
PATIENT: SOWMYA PAREDES LOC: [facility] U#:[id number] AGE/SX: 70/M ROOM: RE05/09/[address]: Dr. John Kapadia MD : 1955 BED: DIS: SPEC #: [id number] RECD: 05/09/19 14:26 STATUS: [facility] KATELIN #: [id number] OSCAR: 05/09/19 00:[address]: John Kapadia DEPT: SURGICAL PATHOLOGY RECD BY: Lisandro Morgan ENTERED: 05/09/19 14:26 SP TYPE: BREAST BX OTHR DR: Dr. Wade Arce MD Tissues: Left breast, NOS Procedures: Surgery Specimen Level IV HEADER OPERATION: Ultrasound-guided needle core biopsy left breast PRE-OP DIAGNOSIS: Left breast mass TISSUE SUBMITTED: Left breast biopsy ISCHEMIC TIME: 5 seconds FIXATION TIME: 6.5 hours MICROSCOPIC DIAGNOSIS Left breast mass, ultrasound-guided needle core biopsy: Consistent with gynecomastia. AM:ashley 05/10/19 MICROSCOPIC DESCRIPTION Slides are reviewed. GROSS DESCRIPTION Received in fixative is one container labeled with the patient's name and designated left breast. The specimen consists of two elongated fragments of porras-yellow fibroadipose tissue each measuring 1.5 cm in length and 0.1 cm in diameter. The entire specimen is submitted in one cassette. / SJ:ashley 05/09/19 TC:5 CPT: 98568
[2019-05-09 13:28] VITALS: BMI 27.3
== END ==
PROVIDERS: Family Provider Family Medicine Geriatric Medicine; PCP Family Medicine Geriatric Medicine; Referring Provider Surgery; Visit Provider Surgery
DX: N63.20 Unspecified lump in the left breast, unspecified quadrant (principal)
CPT/HCPCS: 88305

== ENCOUNTER → 2019-05-22 16:57 | Outpatient (CLI) | payer OTHER, MEDICARE, SELFPAY ==
[2019-05-09 13:28] VITALS: BMI 27.3
--- NOTE | 2019-05-22 17:07 | CT_ITS ---
STUDY: CT BRAIN WITHOUT CONTRAST REASON FOR EXAM: Male, 63 years old. Trauma RADIATION DOSAGE (If Supplied By Facility): DLP = ( 779.24 ) mGycm TECHNIQUE: Transaxial CT imaging of the brain was performed without administration of intravenous contrast material. Individualized dose optimization techniques were used for this CT. COMPARISON: None. FINDINGS: There is no acute bleed or infarct. There are chronic ischemic and atrophic changes. The ventricles are normal in configuration. There is no hydrocephalus. Left maxillary sinus opacification is present with chronic changes of the medial wall. Mild right maxillary sinus disease is present. The mastoid air cells are well aerated. There is no skull fracture. CT/Brain/Head without Contrast IMPRESSION: No acute intracranial abnormality. Chronic ischemic and atrophic changes. Maxillary sinus disease as described above. Electronically Signed: Villa Meyers, at 17:23 EDT Tel , Service support ,
== END ==
PROVIDERS: Family Provider Family Medicine Geriatric Medicine; PCP Family Medicine Geriatric Medicine; Referring Provider Family Medicine Geriatric Medicine; Visit Provider Family Medicine Geriatric Medicine
DX: S09.90XA Unspecified injury of head, initial encounter (principal); X58.XXXA Exposure to other specified factors, initial encounter; Y93.9 Activity, unspecified; Y92.9 Unspecified place or not applicable; Y99.9 Unspecified external cause status
CPT/HCPCS: 70450

== ENCOUNTER → 2019-07-11 09:25 | Outpatient (CLI) | payer OTHER, MEDICARE, SELFPAY ==
[2019-05-09 13:28] VITALS: BMI 27.3
[2019-07-11 12:44] LABS: Absolute Lymphocyte Count 0.73 X10^3/uL (0.83-4.51); Absolute Neutrophil Count 3.5 X10^3/uL (2.0-7.7); Basophil# 0.03 X10^3/uL; Basophil% 0.6 % (0-1); Eosinophil# 0.06 X10^3/uL; Eosinophils% 1.2 % (0-5); Hematocrit 45.8 % (40-54); Hemoglobin 14.7 g/dL (13.0-16.5); Lymphocyte # 0.73 X10^3/ul (4.0); Lymphocyte % 15.2 % (19-41); Mean Corp Hgb Conc 32.1 g/dL (32-36); Mean Corpuscular Hgb 28.2 pg (27.0-32.0); Mean Corpuscular Volume 87.9 fL (80-94); Mean Platelet Vol. 9.9 fl (6.2-12.0); Monocyte# 0.48 X10^3/uL; NRBC Flagged by Analyzer 0 % (0-5); Neutrophil % 72.8 % (47-70); Platelet Count 146 K/mm3 (150-450); RBC Distribution Width CV 14.6 % (11.6-14.6); RBC Distribution Width SD 46.9 fl (35.1-43.9); Red Blood Count 5.21 M/mm3 (4.6-6.2); White Blood Count 4.8 K/mm3 (4.4-11.0)
[2019-07-11 13:06] LABS: AST(SGOT) 21 U/L (15-37); Alanine Aminotransfer ALT/SGPT 34 U/L (16-61); Albumin, Serum 3.7 g/dL (3.2-5.0); Alkaline Phosphatase 106 U/L (45-117); Anion Gap 2 (5-15); BUN 15 mg/dL (7-18); BUN/Creat Ratio 13.8 RATIO (10-20); Chloride 109 mmol/L (98-107); Creatinine, Serum 1.09 mg/dL (0.70-1.30); EST Glomerular Filtration Rate 72 mL/min (>60); Est Glom Filt Rate - Afr Amer 87 mL/min (>60); Globulin 3.7 g/dL (2.2-4.2); Glucose 69 mg/dL (74-106); PSA,Total - Annual Screen 0.96 ng/mL (0.00-4.00); Potassium 3.7 mmol/L (3.5-5.1); Protein, Total 7.4 g/dL (6.4-8.2); Sodium Level 142 mmol/L (136-145); Thyroid Stim Hormone (TSH) 2.78 uIU/mL (0.358-3.74)
== END ==
PROVIDERS: Family Provider Family Medicine Geriatric Medicine; PCP Family Medicine Geriatric Medicine; Visit Provider Family Medicine Geriatric Medicine
DX: I26.99 Other pulmonary embolism without acute cor pulmonale (principal); N39.0 Urinary tract infection, site not specified; R31.9 Hematuria, unspecified; I10 Essential (primary) hypertension; E55.9 Vitamin D deficiency, unspecified; Z12.5 Encounter for screening for malignant neoplasm of prostate
CPT/HCPCS: 36415; 80053; 82306; 84153; 84443; 85025; G0103

== ENCOUNTER 2019-07-12 10:30 | Outpatient (RCR) | payer OTHER, MEDICARE, SELFPAY ==
[2019-05-09 13:28] VITALS: BMI 27.3
--- NOTE | 2019-05-31 08:58 | HP.PTEVAL_ITS ---
Patient's Visit Information SOWMYA PAREDES is a 63 year old M referred to Physical Therapy by MIGUEL ÁNGEL NOBLES with a diagnosis of Strengthening exercises, core strength, and balance. Date of Evaluation: 05/31/19 Physical Therapist: PALAK Kuhn - Visit Plan Frequency: 3x /Week Duration: 2 Months Plan: 2-3X/ week for 4 weeks for LE strengthening, stretching of gastroc, hamstring, quads, functional strengthening to do stairs and get up from the f jeanette easier, balance activities such as walking with head turns. Nuetral spine core strengthening ( pt does have a hernia so need to make sure exercises are not causing pain... pt will mention it), overall endurance with HEP. - Subjective Findings: Pt has a little hernia and it does not bother him but just this past week he started to have some discomfort. He has been off work for almost a year because he was so weak. He had an autoimmune disease and was given meds at [facility] and then had treatment at [facility] and did not get better... admiited to hospital and had a blood infection and then had open heart surgery cause it went to his heart. 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 He is on his feet all the time. He feels like he has no strength. If he has to get down to the floor he can hardly get up. He does not have the strength that he is used to have. Occ some trouble out of a low chair. No SOB. He can not lift as much as he used to. He reports that his balance is off.... he feels like he is clumpsy sometimes ( had surgery on his eye and needs new glasses). He kicks stuff more and runs into stuff or if he is turning around or backing up etc..... He is cleared medically from the autoimmune disease, heart etc..... Fell the other day and hit head and had a CAT SCAN..... sat on a chair and pushed chair back and hit something behind im and the chair tipped. - Pain Hernia/groin Pain Intensity (Out of 10): 2 - Objective Gait: Walks with normal stride length and gait pattern with occassional veering. LE MMT: B hip flex 4-/5, B knee ext 4/5, B knee flex 4/5, B hip abd 4/5, Bridging ( 1/2 normal ROM). Able to Heel and toe raise. Slightly tight HS and tight gastroc and hip flexors B. FGA: 17. Stairs: up and down stairs without a rail recip but has some verring on the stairs and caught toe at least once. CATSIB: 118/120 - Balance Scores Functional Gait Assessment Score: 17 % Disability: 43.3400 CATSIB Score (Max score 120 seconds): 118 - Goals Goal 1:: I HEP Goal Time Frame: 4-6 Weeks Goal 2:: Increase LE strength to be able to get up off the floor with use of UE if needed. Goal Time Frame: 4-6 Weeks Goal 3:: Increase FGA by 3 points to decrease fall risk ( at eval score was 17) Goal Time Frame: 4-6 Weeks Goal 4:: Up and down stairs recip without handrail without veering Goal Time Frame: 4-6 Weeks - Rehabilitation Potential Rehabilitation Potential: Good - Anticipated Interventions Patient/Client Instruction: Educate patient on: Condition, Plan of Care For the Purpose of:: To improve muscle performance and motor function, To improve ability to perform ADL's, To increase tolerance to activity/condition/position, To improve performance and independence with ADL's, To improve ability of physical actions for home/community/work/leisure, To increase flexibility/ROM, To improve endurance, To improve balance Therapeutic Exercise to Include: Strength training, Endurance training, Balance training, Postural training, Flexibilty training, Gait and locomotor training, Active ROM, Dynamic Lumbar Stabilization For the Purpose of:: To increase ROM, To improve muscle performance and motor function, To improve ability to perform ADL's, To increase tolerance to activity/condition/position, To improve performance and independence with ADL's, To decrease level of supervision to perform tasks, To improve ability of physical actions for home/community/work/leisure, To improve gait and locomotor functions, To improve endurance, To improve balance Thank you for the opportunity to evaluate your patient. For Medicare and Medicare HMO plans, please review the plan of care and approve it. It will need to be FAXED BACK to us at [phone] for Medicare purposes. For Medicare only, by signing this I certify the plan of care. Please let me know if there are questions or concerns regarding this plan of care. Physician Signature: Dat e:
--- NOTE | 2019-06-26 10:51 | HP.PTREVAL ---
MIGUEL ÁNGEL NOBLES, It has been my pleasure to treat SOWMYA APREDES over the last 12 visits for Strengthening exercises, core strength, and balance. Please see the progress note below for an update on the physical therapy plan of care! Subjective: Doing well. Feeling better with strength especially in legs. Balance feels better sometimes and not others. No falls. Avoids climbing ladders except small step ladder. Not doing exercises at home other than stretches and that is rare. Working since middle of March and doing well with those activities. getting off floor is better. No cardiac precautions. Objective/Function: Significantly better FGA/balance. Steps reciprocally without rail up and down. Off floor with just slight balance assist from table easily x 2. walks normal. Overall much better, enjoys the workout but not sure he can continue on his own yet despite motivated. Appropriate to cotninue 3-5 visists to gain I with gym with good prgnosis to do so. HR 72 pbm at rest today. Plan Plan: 2x/week for 3-5 visits to exclusively work on LE and postural gym machines to get to I with list and set up himself. Also please include gentle CV progression with HR checks and teaching increased duration of this.(bike, nustep, TM, if able) Goals Goal 1:: I HEP Goal Time Frame: 4-6 Weeks Goal Progress: stretch. Goal 2:: Increase LE strength to be able to get up off the floor with use of UE if needed. Goal Time Frame: 4-6 Weeks Goal Progress: Goal Met Goal 3:: Increase FGA by 3 points to decrease fall risk ( at eval score was 17) Goal Time Frame: 4-6 Weeks Goal Progress: Goal Met Goal 4:: Up and down stairs recip without handrail without veering Goal Time Frame: 4-6 Weeks Goal Progress: Goal Met Goal 5:: I gym ex for CV and LE/postural strength with list that patient can join and continue himself. Goal Time Frame: 2 Weeks Goal Progress: NEW GOAL Anticipated Interventions Patient/Client Instruction: Educate patient on: Condition, Plan of Care For the Purpose of:: To improve muscle performance and motor function, To improve ability to perform ADL's, To increase tolerance to activity/condition/position, To improve performance and independence with ADL's, To improve ability of physical actions for home/community/work/leisure, To increase flexibility/ROM, To improve endurance, To improve balance Therapeutic Exercise to Include: Strength training, Endurance training, Balance training, Postural training, Flexibilty training, Gait and locomotor training, Active ROM, Dynamic Lumbar Stabilization For the Purpose of:: To increase ROM, To improve muscle performance and motor function, To improve ability to perform ADL's, To increase tolerance to activity/condition/position, To improve performance and independence with ADL's, To decrease level of supervision to perform tasks, To improve ability of physical actions for home/community/work/leisure, To improve gait and locomotor functions, To improve endurance, To improve balance Please do not hesitate to contact me at [phone] by phone or if you have questions or concerns regarding this new plan of care! Sincerely, Compa Herrera, DPT, OCS, CSCS
--- NOTE | 2019-07-12 11:59 | HP.PTDCSUM ---
HP - PT D/C Summary It has been my pleasure to treat SOWMYA PAREDES under orders from MIGUEL ÁNGEL NOBLES, for the diagnosis of Strengthening exercises, core strength, and balance for a total of 15 visit(s). Discharge Date: 07/12/19 Please see the following information for a summary of their discharge status. - Subjective Subjective: Pt is planning on coming back and doing exercises on his own. He feels comfortable with set up of machines out in the gym. He feels that he has improved in flexibility ad strength. People feels that he still veers with gait on occassion. He reports that bending forward to get stuff off the floor is easier. - Pain Hernia/groin Pain Intensity (Out of 10): 0 left shoulder Pain Intensity (Out of 10): 0 - Overall Improvement % Improvement: 80 - Objective Objective/Function: Up and down stairs recip with 1 hand rail. Able to warehouse picker objects from the floor without any issues. Able to warehouse picker a box with 25# and bring up to waist level X 5 with bending his knees without LOB - Goals Goal 1:: I HEP Goal Progress: Goal Met Goal 2:: Increase LE strength to be able to get up off the floor with use of UE if needed. Goal Progress: Goal Met Goal 3:: Increase FGA by 3 points to decrease fall risk ( at eval score was 17) Goal Progress: Goal Met Goal 4:: Up and down stairs recip without handrail without veering Goal Progress: Goal Met Goal 5:: I gym ex for CV and LE/postural strength with list that patient can join [facility] and continue himself. Goal Progress: Goal Met - Plan Plan: DC PT to [facility] gym routine - D/C Information Discharge Comments: DC PT to [facility] If there are questions or concerns regarding this patient's physical therapy, please feel free to call me at [phone]. Thank you for the referral of this patient. Sincerely, Mary Jane Sepulveda, MPT
== END 2019-07-12 14:51 | disposition home or self-care (01) ==
LOC: PT 10:30
PROVIDERS: Family Provider Family Medicine Geriatric Medicine; PCP Family Medicine Geriatric Medicine
DX: M62.81 Muscle weakness (generalized) (principal)
CPT/HCPCS: 97110; 97161; 97530

== ENCOUNTER → 2019-12-23 10:42 | Outpatient (CLI) | payer OTHER, MEDICARE, SELFPAY ==
[2019-05-09 13:28] VITALS: BMI 27.3
--- NOTE | 2019-12-23 10:48 | RAD_ITS ---
STUDY: X-RAY - LUMBAR SPINE REASON FOR EXAM: Male, 64 years old. BACK PAIN, ESSENTIALLY LT SIDE FLANK PAIN. NKI TECHNIQUE: 2 view(s) of the lumbar spine were obtained. COMPARISON: 09/20/2017. FINDINGS: Normal lumbar lordosis. There is mild levoscoliosis of the mid and upper spine. There is a normal alignment of the vertebrae. Normal vertebral bodies. There is multilevel spondylosis.. There is multi-level degenerative disc disease with multi-level disc space narrowing. There are degenerative changes of the facet joints at multiple levels, most prominent in the lower spine. The soft tissue structures are unremarkable. RAD/Lumbar Spine 2 or 3 Views IMPRESSION: Degenerative changes of the spine, as detailed above. Electronically Signed: Arnoldo Hawkins MD at 2:29 EDT , Service support ,
--- NOTE | 2019-12-23 10:48 | RAD_ITS ---
STUDY: X-RAY - THORACIC SPINE REASON FOR EXAM: Male, 64 years old. BACK PAIN, ESSENTIALLY LT SIDE FLANK PAIN. NKI TECHNIQUE: 5 view(s) of the thoracic spine were obtained. COMPARISON: Chest x-ray 10/19/2017. FINDINGS: Normal kyphosis of the thoracic spine. There is no substantial scoliosis. Normal thoracic vertebrae. There is multilevel spondylosis.. There is multilevel disc space narrowing of the thoracic spine. The soft tissue structures are unremarkable. RAD/Thoracic Spine 3 Views IMPRESSION: Multilevel degenerative changes. No demonstrated fracture or subluxation. Electronically Signed: Arnoldo Hawkins MD at 6:39 EDT , Service support ,
== END ==
PROVIDERS: PCP Family Medicine Geriatric Medicine; Referring Provider Family Medicine Geriatric Medicine; Visit Provider Family Medicine Geriatric Medicine
DX: M54.9 Dorsalgia, unspecified (principal); N39.0 Urinary tract infection, site not specified
CPT/HCPCS: 72072; 72100; 87086

== ENCOUNTER → 2020-01-09 09:30 | Outpatient (CLI) | payer OTHER, MEDICARE, SELFPAY ==
[2019-05-09 13:28] VITALS: BMI 27.3
[2020-01-09 12:18] LABS: Absolute Lymphocyte Count 0.76 X10^3/uL (0.83-4.51); Absolute Neutrophil Count 4.8 X10^3/uL (2.0-7.7); Basophil# 0.04 X10^3/uL; Basophil% 0.6 % (0-1); Eosinophil# 0.06 X10^3/uL; Hematocrit 46.4 % (40-54); Hemoglobin 15.2 g/dL (13.0-16.5); Lymphocyte # 0.76 X10^3/ul (4.0); Lymphocyte % 12.1 % (19-41); Mean Corp Hgb Conc 32.8 g/dL (32-36); Mean Corpuscular Hgb 29.9 pg (27.0-32.0); Mean Corpuscular Volume 91.3 fL (80-94); Mean Platelet Vol. 9.6 fl (6.2-12.0); Monocyte# 0.64 X10^3/uL; Monocyte% 10.2 % (0-10); NRBC Flagged by Analyzer 0 % (0-5); Neutrophil # 4.78 X10^3/uL (2.7-7.7); Neutrophil % 75.8 % (47-70); Platelet Count 125 K/mm3 (150-450); RBC Distribution Width CV 13.9 % (11.6-14.6); RBC Distribution Width SD 46.5 fl (35.1-43.9); Red Blood Count 5.08 M/mm3 (4.6-6.2); White Blood Count 6.3 K/mm3 (4.4-11.0)
[2020-01-09 12:31] LABS: Vitamin D,25 Hydroxy 26.9 ng/mL
[2020-01-09 12:36] LABS: ALB/GLOB Ratio 1.2 RATIO (0.9-2.4); AST(SGOT) 18 U/L (15-37); Alanine Aminotransfer ALT/SGPT 32 U/L (16-61); Albumin, Serum 3.6 g/dL (3.2-5.0); Alkaline Phosphatase 78 U/L (45-117); Anion Gap 5 (5-15); BUN 20 mg/dL (7-18); BUN/Creat Ratio 17.9 RATIO (10-20); Calcium,Total 8.7 mg/dL (8.5-10.1); Chloride 105 mmol/L (98-107); Creatinine, Serum 1.12 mg/dL (0.70-1.30); EST Glomerular Filtration Rate 70 mL/min (>60); Est Glom Filt Rate - Afr Amer 84 mL/min (>60); Globulin 3.1 g/dL (2.2-4.2); Glucose 71 mg/dL (74-106); Protein, Total 6.7 g/dL (6.4-8.2); Sodium Level 140 mmol/L (136-145); Thyroid Stim Hormone (TSH) 1.94 uIU/mL (0.358-3.74)
== END ==
PROVIDERS: PCP Family Medicine Geriatric Medicine; Visit Provider Family Medicine Geriatric Medicine
DX: I10 Essential (primary) hypertension (principal); E55.9 Vitamin D deficiency, unspecified
CPT/HCPCS: 36415; 80053; 82306; 84443; 85025

== ENCOUNTER → 2020-01-23 | Outpatient (CLI) | payer OTHER, MEDICARE, SELFPAY ==
[2019-05-09 13:28] VITALS: BMI 27.3
== END | disposition home or self-care (01) ==
LOC: LABSPEC 15:04
PROVIDERS: PCP Family Medicine Geriatric Medicine; Visit Provider Family Medicine Geriatric Medicine
DX: N39.0 Urinary tract infection, site not specified (principal)
CPT/HCPCS: 87086; 87088

== ENCOUNTER → 2020-04-21 12:18 | Outpatient (CLI) | payer OTHER, MEDICARE, SELFPAY ==
[2019-05-09 13:28] VITALS: BMI 27.3
--- NOTE | 2020-04-21 12:22 | RAD_ITS ---
STUDY: X-RAY - LUMBAR SPINE REASON FOR EXAM: Male, 64 years old. RIGHT HIP PAIN SINCE MONDAY. NKI TECHNIQUE: 3 view(s) of the lumbar spine were obtained. COMPARISON: 12/23/2019 FINDINGS: Normal lumbar lordosis. There is a levoscoliosis of the lumbar spine. There is a normal alignment of the vertebrae. There is multilevel endplate spondylosis of the lumbar vertebrae. There is multi-level degenerative disc disease with multi-level disc space narrowing. The soft tissue structures are unremarkable. RAD/Lumbar Spine 2 or 3 Views IMPRESSION: Levoscoliosis and moderate degenerative disc disease. Electronically Signed: Dylan Yates MD at 13:29 EDT Tel , Service support ,
--- NOTE | 2020-04-21 12:22 | RAD_ITS ---
STUDY: X-RAY - PELVIS AND RIGHT HIP REASON FOR EXAM: Male, 64 years old. RIGHT HIP PAIN SINCE MONDAY. NKI TECHNIQUE: 3 views of the pelvis and hip. COMPARISON: None. FINDINGS: There is a non-specific bowel gas pattern. Normal visualized soft tissue structures. Normal bilateral iliac wings, sacroiliac joints and visualized sacrum. There may be an old healed fracture of the superior left pubic ramus. Normal pubic symphysis. Normal bilateral ischial tuberosities. The osseous structures and articular surfaces of the right hip appear within normal limits. There are mild arthritic changes of the left hip. RAD/HIP, UNI W/ Pelvis 2-3 Views IMPRESSION: Mild arthritic changes of the left hip. There may be an old healed fracture of the superior left pubic ramus. There are degenerative changes of the visualized lower lumbar spine. Electronically Signed: Shashi Galan MD at 19:38 EDT , Service support ,
== END ==
PROVIDERS: PCP Family Medicine Geriatric Medicine; Referring Provider Family Medicine Geriatric Medicine; Visit Provider Family Medicine Geriatric Medicine
DX: M54.9 Dorsalgia, unspecified (principal); M25.551 Pain in right hip
CPT/HCPCS: 72100; 73502

== ENCOUNTER → 2020-05-26 09:30 | Outpatient (CLI) | payer OTHER, MEDICARE, SELFPAY ==
[2019-05-09 13:28] VITALS: BMI 27.3
--- NOTE | 2020-05-25 | CYSPIN_PTH ---
PATIENT: SOWMYA PAREDES LOC: [facility] U#:[id number] AGE/SX: 70/M ROOM: RE05/26/[address]: SHANNON Johnson : 1955 BED: DIS: SPEC #: [id number] RECD: 05/27/20 08:50 STATUS: CLINT KATELIN #: [id number] OSCAR: 05/25/20 00:[address]: Lyric Lim NP DEPT: CYTOLOGY RECD BY: Roland Langston ENTERED: 05/27/20 08:51 SP TYPE: CYSPIN FL OTHR DR: Dr. Wade Arce MD Tissues: Urine Procedures: Pap Stain (control) Special Stain Group II Cytospin Fluid HEADER OPERATION: Not noted PRE-OP DIAGNOSIS: Gross hematuria R31.0 TISSUE SUBMITTED: Urine for cytology DIAGNOSIS CYTOLOGY Urine for cytology (cytospin): Atypical urothelial cells noted, suspicious for malignancy. See comment. SJ:ashley 05/28/20 COMMENT Clinical correlation and appropriate follow up are necessary. Please make reference to previous specimens ([id number]) urine for cytology with diagnosis of degenerating urothelial cells are present and ([id number]) urine for cytology with diagnosis of rare degenerating epithelial cells noted. CYTOLOGY STUDY Slides are reviewed. CYTOLOGY GROSS Received is 70 ml of gold cloudy fluid labeled with the patient's name and and designated per the requisition as urine. Submitted for cytology preparation. / ashley 05/27/20 TC:5 CPT: 95580
[2020-05-26 14:03] LABS: Cytology, Body Fluid / CSF SEE PATHOLOGY REPORT
== END ==
PROVIDERS: PCP Family Medicine Geriatric Medicine; Referring Provider Nurse Practitioner Adult Health; Visit Provider Nurse Practitioner Adult Health
DX: R31.0 Gross hematuria (principal); Z12.5 Encounter for screening for malignant neoplasm of prostate
CPT/HCPCS: 88108; 88313

== ENCOUNTER → 2020-06-05 07:42 | Outpatient (CLI) | payer OTHER, MEDICARE, SELFPAY ==
[2019-05-09 13:28] VITALS: BMI 27.3
[2020-06-02 13:05] LABS: Hematocrit 46.3 % (40-54); Hemoglobin 15.1 g/dL (13.0-16.5); Mean Corp Hgb Conc 32.6 g/dL (32-36); Mean Corpuscular Hgb 29.7 pg (27.0-32.0); Mean Platelet Vol. 9.2 fl (6.2-12.0); Platelet Count 174 K/mm3 (150-450); RBC Distribution Width CV 13.8 % (11.6-14.6); RBC Distribution Width SD 46.3 fl (35.1-43.9); Red Blood Count 5.09 M/mm3 (4.6-6.2); White Blood Count 6.2 K/mm3 (4.4-11.0)
[2020-06-02 13:59] LABS: Anion Gap 5 (5-15); BUN 19 mg/dL (7-18); BUN/Creat Ratio 21.1 RATIO (10-20); Calcium,Total 9.1 mg/dL (8.5-10.1); Chloride 111 mmol/L (98-107); EST Glomerular Filtration Rate 89 mL/min (>60); Est Glom Filt Rate - Afr Amer 108 mL/min (>60); Glucose 91 mg/dL (74-106); Potassium 4.4 mmol/L (3.5-5.1); Sodium Level 142 mmol/L (136-145)
--- NOTE | 2020-06-05 07:44 | CT_ITS ---
STUDY: CT ABDOMEN AND PELVIS WITH AND WITHOUT CONTRAST REASON FOR EXAM: Male, 64 years old. GROSS HEMATURIA, HX HERNIA REPAIR RADIATION DOSAGE (If Supplied By Facility): CTDIvol = ( 23.85 ) mGy, DLP = ( 3094.32 ) mGycm TECHNIQUE: Transaxial images were obtained from the dome of the diaphragm to the symphysis pubis without oral contrast. IV 100mL Isovue-300 was administered. Sagittal and coronal images were reconstructed. Individualized dose optimization techniques were used for this CT. COMPARISON: Comparison is made with prior study dated 02/22/2019. FINDINGS: The visualized lung bases are unremarkable. Coronary artery calcifications. Prior CABG. Multiple tiny cysts are seen scattered throughout the right and left lobes of the liver. Once again, there is evidence of a 2.4 cm indeterminate enhancing soft tissue density along the peripheral aspect of the left lobe of the liver. This may represent a small hemangioma. Normal gallbladder and extrahepatic biliary system. Normal spleen. Normal pancreas. Normal bilateral adrenal glands. Stable appearing bilateral parapelvic renal cysts. Nonspecific bilateral perinephric stranding. Atherosclerotic plaque formation of several intrarenal arterial branches. Normal visualized stomach. Normal small intestine. There are multiple colonic diverticula consistent with diverticulosis. The appendix is visualized and appears normal. There is diffuse atherosclerotic calcification of the abdominal aorta and the major visceral branches including renal arteries bilaterally, without a demonstrated aneurysm. Normal inferior vena cava. Normal retroperitoneum. The urinary bladder is not adequately distended although there is evidence of diffuse bladder wall thickening. There are prostatic calcifications. The prostate measures 4.2 cm x 5 cm. This causes indentation at the bladder base. There is a left-sided inguinal hernia containing adipose tissue. Small umbilical hernia containing fat. There are diffuse degenerative changes of the visualized lumbar spine. CT/CT Abd/Pelvis W/WO Contrast IMPRESSION: Stable cysts in the liver with a focal area of enhancement in the peripheral aspect of the left lobe of liver as described. Stable bilateral parapelvic renal cysts. There has been essentially no change since prior study. Electronically Signed: Antoni Lawson, at 10:28 EDT , Service support ,
== END ==
PROVIDERS: PCP Family Medicine Geriatric Medicine; Referring Provider Nurse Practitioner Adult Health; Visit Provider Nurse Practitioner Adult Health
DX: I10 Essential (primary) hypertension (principal)
CPT/HCPCS: 36415; 74178; 80048; 85027; Q9967

== ENCOUNTER 2020-06-15 11:00 | Emergency (ER) | payer OTHER, MEDICARE, SELFPAY ==
[2019-05-09 13:28] VITALS: BMI 27.3
[2020-06-15 11:01] VITALS: BP 172/96; PULSE 82; RESP 18; TEMP 36.6; O2SAT 98; BMI 30.2
--- NOTE | 2020-06-15 11:19 | CT_ITS ---
STUDY: CT ABDOMEN AND PELVIS WITH CONTRAST REASON FOR EXAM: Male, 64 years old. LLQ PAIN FOLLOWING SCOPE X-SEVERAL DAYS AGO -- PAIN GETTING WORSE -- RADIATION DOSAGE (If Supplied By Facility): CTDIvol = ( 18.92 ) mGy, DLP = ( 1142.65 ) mGycm TECHNIQUE: Transaxial images were obtained from the dome of the diaphragm to the symphysis pubis with oral contrast. 100mL Isovue-370 was administered. Sagittal and coronal images were reconstructed. Individualized dose optimization techniques were used for this CT. COMPARISON: June 05, 2020 FINDINGS: The visualized lung bases are unremarkable. There are sternotomy wires. Small hypodensities suggesting cysts in the liver. Normal gallbladder and extrahepatic biliary system. Normal spleen. Normal pancreas. Normal bilateral adrenal glands. Renal calcifications could be vascular or urinary. There are stable parapelvic cysts of the kidneys. There is mild left hydronephrosis. The left ureter is dilated into the pelvis. Normal visualized stomach. Normal small intestine. Normal colon. There is non-visualization of the appendix. There is diffuse atherosclerotic calcification of the abdominal aorta and branches with elongation and tortuosity, but without a demonstrated aneurysm. Normal inferior vena cava. Normal retroperitoneum. There is wall thickening of the urinary bladder. There is no free fluid in the abdomen or pelvis. There is a left-sided inguinal hernia containing adipose tissue. There are diffuse degenerative changes of the visualized lumbar spine. CT/Abdomen/Pelvis WITH Contrast IMPRESSION: Left hydroureteronephrosis. Stable renal calcifications. Wall thickening of the urinary bladder. Electronically Signed: Maurice Marcus MD at 14:08 EDT , Service support ,
--- NOTE | 2020-06-15 11:20 | ED.DCSUM_ITS ---
- ER Visit Summary Date of Service: 06/15/20 Chief Complaint: Abdominal pain History of Present Illness: The patient is a 64 M who presents with left lower quadrant abdominal pain that has been getting worse over the past 4 days. Patient had a recent cystoscopy and has been having some pain in his left lower quadrant since that time. Patient describes the pain is sharp. Patient states the pain is intermittent and last for approximately 30 minutes. Patient states the pain is worse with bending forward. Patient states she took some Tylenol which did help. Patient admits to nausea that is intermittent. Patient also admits to an episode of vomiting. Patient denies any diarrhea, melena, or hematochezia. Patient admits to some hematuria which he believes is related to the cystoscopy. Patient denies any dysuria. Patient denies any fevers or chills. Physical Examination: Vital signs are stable. Patient is afebrile. Patient is in no acute distress. Oral mucosa is pink and moist. Neck is supple. Trachea is midline. There is no JVD. Heart was regular rate and rhythm. Lungs are clear and equal bilaterally. Abdomen is soft. Bowel sounds are normal. There is left lower quadrant tenderness. There is no rebound or guarding. I do not appreciate a hernia. There is no tenderness over the left inguinal canal. Cranial nerves II through XII are intact. There are no focal motor or sensory deficits. Test Results: CBC, comprehensive metabolic profile, and urinalysis were obtained and were essentially within normal limits. CT scan of the abdomen pelvis was obtained. There is left hydronephrosis and left hydroureter. There is no calc ulus noted. There is some wall thickening of the bladder. There is no other acute abnormality noted. This was interpreted by the radiologist and reviewed by myself. Emergency Department Course and Treatment: Patient was given IV fluids. Patient was feeling better on reevaluation. Patient states that when he got up to walk to the bathroom this pain came back. Patient states this improved when he sat back down and laid back down. Patient states he is supposed to call Dr. Bonilla tomorrow to schedule a follow-up appointment. Patient was instructed to continue with this. Patient was instructed to take Tylenol or Advil as needed for pain. Patient was instructed to use ice to the area. Patient understood and was agreeable with the plan. All questions were answered. Disposition: Discharge home Impression: 1. Abdominal pain This note was generated with [employer] dictation software. It may contain incorrect words, spelling, and punctuation that were not noted in review of the chart prior to signing ED Disposition - Plan for ED Patient: Disposition: Home or Assisted Living Diagnosis: Abdominal pain Instructions: ED Unknown Causes of Abdominal Pain Male Referrals: Wade Arce Chi, MD [Primary Care Provider] - 5-7 Days Dutch Bonilla MD [STAFF PHYSICIAN] - Keep Lizandro appointment
[2020-06-15] MEDS: 0.9% Normal Saline 1,000 ML 1000 ML IV (11:43)
[2020-06-15 11:57] LABS: Absolute Lymphocyte Count 0.43 X10^3/uL (0.83-4.51); Absolute Neutrophil Count 4.7 X10^3/uL (2.0-7.7); Basophil# 0.02 X10^3/uL; Basophil% 0.3 % (0-1); Eosinophil# 0.06 X10^3/uL; Hematocrit 43.1 % (40-54); Hemoglobin 14.5 g/dL (13.0-16.5); Lymphocyte # 0.43 X10^3/ul (4.0); Lymphocyte % 7.2 % (19-41); Mean Corp Hgb Conc 33.6 g/dL (32-36); Mean Corpuscular Hgb 30.5 pg (27.0-32.0); Mean Corpuscular Volume 90.7 fL (80-94); Mean Platelet Vol. 9.4 fl (6.2-12.0); Monocyte# 0.72 X10^3/uL; Monocyte% 12.1 % (0-10); NRBC Flagged by Analyzer 0 % (0-5); Neutrophil # 4.69 X10^3/uL (2.7-7.7); Neutrophil % 78.9 % (47-70); POSITIVE DIFFERENTIAL YES; Platelet Count 132 K/mm3 (150-450); RBC Distribution Width CV 14.1 % (11.6-14.6); RBC Distribution Width SD 47.3 fl (35.1-43.9); Red Blood Count 4.75 M/mm3 (4.6-6.2)
[2020-06-15 12:00] LABS: Differential Indicated SCAN CRITERIA MET
[2020-06-15 12:14] LABS: Bacteria 0 SEEN /hpf (None Seen); Mucous, Urine 0 SEEN /hpf (<or=2+); Squamous Epithelial Cells - UA 0 SEEN /hpf (0-5); White Blood Cells 0 SEEN /hpf (0-5)
[2020-06-15 12:15] LABS: Color, Urine Yellow (Yellow); Glucose, Dipstick Normal (Normal); Ketone-Dipstick Negative (Negative); Leukocyte Esterase-Dipstick Negative /ul (Negative); Nitrite-Dipstick Negative (Negative); Occult Blood-Urine 150 /ul (Negative); Protein-Dipstick Negative (Negative); Specific Gravity, Urine 1.015 (1.002-1.030); Urine Bilirubin Dipstick Negative (Negative); Urine Clarity Clear (Clear); Urine Urobilinogen Normal (Normal)
[2020-06-15 12:15] LABS: ALB/GLOB Ratio 1.1 RATIO (0.9-2.4); AST(SGOT) 20 U/L (15-37); Alanine Aminotransfer ALT/SGPT 26 U/L (16-61); Albumin, Serum 3.5 g/dL (3.2-5.0); Alkaline Phosphatase 66 U/L (45-117); Anion Gap 6 (5-15); BUN 17 mg/dL (7-18); BUN/Creat Ratio 17.7 RATIO (10-20); Calcium,Total 8.8 mg/dL (8.5-10.1); Chloride 110 mmol/L (98-107); Creatinine, Serum 0.96 mg/dL (0.70-1.30); EST Glomerular Filtration Rate 83 mL/min (>60); Est Glom Filt Rate - Afr Amer 101 mL/min (>60); Estimated Creatinine Clearance 75.69 ml/min; Globulin 3.3 g/dL (2.2-4.2); Glucose 103 mg/dL (74-106); Lipase 113 U/L (73-393); Potassium 3.5 mmol/L (3.5-5.1); Protein, Total 6.8 g/dL (6.4-8.2); Sodium Level 142 mmol/L (136-145)
[2020-06-15 12:20] LABS: Red Blood Cells-Urine 0-5 SEEN /hpf (0-5)
[2020-06-15 14:16] VITALS: BP 161/99; PULSE 69; RESP 17; TEMP 36.9; O2SAT 97
== END 2020-06-15 14:42 | disposition home or self-care (01) ==
PROVIDERS: Emergency Provider Emergency Medicine; PCP Family Medicine Geriatric Medicine
DX: R10.32 Left lower quadrant pain (principal); N13.30 Unspecified hydronephrosis; R31.9 Hematuria, unspecified; R11.2 Nausea with vomiting, unspecified; I10 Essential (primary) hypertension; Z79.01 Long term (current) use of anticoagulants; Z79.82 Long term (current) use of aspirin; Z79.899 Other long term (current) drug therapy
CPT/HCPCS: 74177; 80053; 81001; 83690; 85025; 99284; J7030; Q9967; A4216

== ENCOUNTER 2020-06-18 07:11 | Emergency (ER) | payer OTHER, MEDICARE, SELFPAY ==
[2020-06-18 07:13] VITALS: BP 157/111; PULSE 67; RESP 17; TEMP 36.3; O2SAT 97; BMI 29.5
--- NOTE | 2020-06-18 07:27 | US_ITS ---
STUDY: SCROTUM ULTRASOUND REASON FOR EXAM: Male, 64 years old. LT TESTICULAR PAIN TECHNIQUE: Ultrasound evaluation of the scrotum was performed with color Doppler and static jimenes-scale imaging. COMPARISON: None. FINDINGS: RIGHT TESTICLE INTRATESTICULAR: There is a normal size of the right testicle. The right testicle measures 3.1 cm x 2.3 cm x 1.4 cm. There is a homogenous echotexture. There is normal arterial and normal venous vascularity. There is no demonstrated right testicular mass or cyst. EXTRATESTICULAR: The epididymis is normal in size. The epididymis head measures 1.1 cm x 1.1 cm x 1.3 cm. There is normal vascularity of the epididymis. 2 well-defined cystic structures are seen within the epididymis without internal echoes incomplete with epididymal cysts. The larger measures 4 mm. There is a small hydrocele. There are prominent extratesticular veins consistent with a varicocele. There is no demonstrated extratesticular mass or cyst. LEFT TESTICLE INTRATESTICULAR: There is a normal size of the left testicle. The left testicle measures 2.1 cm x 2.5 cm x 1.6 cm. There is a homogenous echotexture. There is normal arterial and normal venous vascularity. There is no demonstrated left testicular mass or cyst. EXTRATESTICULAR: The epididymis is normal in size. The epididymis head measures 1.1 cm x 1 cm x 0.7 cm. There is normal vascularity of the epididymis. There is no demonstrated epididymal cystic structure. There is a small hydrocele. There are prominent extratesticular veins consistent with a varicocele. There is evidence of a large left scrotal hernia. US/Testicular with Arterial Flow IMPRESSION: Small bilateral hydroceles and varicoceles. Large left scrotal hernia. 2. Small left epididymal cysts. Electronically Signed: Antoni Lawson, at 9:49 EDT , Service support ,
--- NOTE | 2020-06-18 07:32 | ED.VIS.GEN ---
History of Present Illness Chief Complaint: Other, Pain/Inj Informant: Patient Onset: Today, Yesterday Context: Gradual Onset Timing: Continuous Current Severity: Moderate Maximum Severity: Moderate Narrative: The patient is a 64-year-old male who presents to the emergency department with left lower quadrant pain. Last Monday, the patient underwent cystoscopy by Dr. Bonilla. He states that he was sore over the weekend. He presented here on Monday because of increasing pain in his flank area into his left lower quadrant. He underwent CT at that time. It did show some nonspecific hydronephrosis on the left, but his urine showed no evidence of infection and there was no acute obstructive process. He states that his pain was rather well controlled for Monday. He states yesterday, he went to work. He states about 10 PM, the pain worsened. He states it was worse throughout the night. He states it comes in waves but never fully goes away. He is been nauseated with the pain. He did take a [place] prior to arrival with minimal improvement. He states that he discussed his case with Dr. Bonilla who referred him to the emergency department. Prior similar symptoms: Yes Recent Illness/Hospitalization: Yes Past Medical History - Allergies and Home Meds Allergies/Adverse Reactions: Allergies Mcfcvil-Hhe-Bkk Reductase Inhibitor Adverse Reaction (Severe, Verified 06/18/20 07:12) Muscle Weakness Primary Care Physician: Johan Collado MD [STAFF PHYSICIAN] - Prior records reviewed: Yes Past Medical History: - - Hypertension, hypothyroid, questionable bladder cancer, MGUS, MTHFR Surgical History: cataract, - Smoking Status: Never smoker - Family History Maternal Family History: Family History (Last Reviewed 05/09/19 @ 13:27 by Dagmar Aquino) Father Prostate cancer Heart disease Cancer Daughter Asthma Mother Aorta aneurysm Family History: Reports: Heart Disease Paternal Family History: Family History (Last Reviewed 05/09/19 @ 13:27 by Dagmar Aquino) Father Prostate cancer Heart disease Cancer Daughter Asthma Mother Aorta aneurysm Family History: Reports: Heart Disease Review of Systems General: Denies: Chills, Fever, Sweats Eyes: Denies: Visual changes - bilaterally, Diplopia ENT: Denies: Rhinorrhea, Sore throat Cardiovascular: Denies: Chest pain, Palpitations Respiratory: Denies: Dyspnea, Cough, Dyspnea on exertion Gastrointestinal: Reports: Abdominal pain, Nausea. Denies: Vomiting, Diarrhea, Melena, Hematochezia Genitourinary: Denies: Dysuria, Hematuria, Frequency Musculoskeletal: Denies: Back pain, Extremity Pain Skin: Denies: Rash, Wounds Neurological: Denies: Headache, Weakness, Numbness Physical Exam Vital Signs/Narrative: Vital Signs Temp Pulse Resp BP Pulse Ox 06/18/20 07:13 97.4 F L 67 17 157/111 H 97 Inital Vital Signs reviewed: Yes General: Well nourished, Well developed, No Acute Distress Head: Normocephalic, Atraumatic Eyes: Perrl, EOMI ENT: Moist mucous membranes, No rhinorrhea Neck: Supple, Nontender Cardiovascular: Regular rate, Regular rhythm, No murmurs Respiratory: No distress, CTA bilaterally, Chest nontender Abdomen: Soft, Nontender, Nondistended, Normal bowel sounds : - - Mild tenderness palpation over the left testicle. Normal cremasteric. Back: Nontender, Normal Inspection Extremities: Nontender, No edema Skin: Normal color, No rash Neurological: Alert, Oriented x3, Cranial nerves II-XII grossly intact, Normal Strength, Normal Sensation Psychological: Normal affect, Normal Mood Diagnostic/Tx/Re-eval Clinical Impression(s) from Imaging Studies Testicular Ultrasound 06/18/20 07:27 IMPRESSION: Small bilateral hydroceles and varicoceles. Large left scrotal hernia. 2. Small left epididymal cysts. Electronically Signed: Antoni Lawson, at 9:49 EDT , Service support , Renal Ultrasound 06/18/20 07:38 IMPRESSION: Mild bilateral hydronephrosis. Small bilateral parapelvic renal cysts. Electronically Signed: Antoni Lawson, at 9:52 EDT , Service support , Abnormal Lab Results 06/18/20 06/18/20 06/18/20 07:42 07:42 07:42 WBC 8.2 RBC 5.10 Hgb 15.6 Hct 46.4 MCV 91.0 MCH 30.6 MCHC 33.6 RDW Std Deviation 47.2 H RDW Coeff of Enriqueta 14.0 Plt Count 121 L MPV 9.0 Immature Gran % (Auto) 0.400 Neut % (Auto) 87.1 H Lymph % (Auto) 4.7 L [place] % (Auto) 7.5 Eos % (Auto) 0.1 Baso % (Auto) 0.2 Absolute Neuts (auto) 7.2 Absolute Lymphs (auto) 0.39 L Nucleated RBC % 0 PT 15.0 H INR 1.2 Sodium 140 Potassium 4.1 Chloride 108 H Carbon Dioxide 25.0 Anion Gap 7 BUN 23 H Creatinine 1.37 H Estim Creat Clear Calc 54.76 Est GFR (MDRD) Af Amer 67 Est GFR (MDRD) Non-Af 55 L BUN/Creatinine Ratio 16.8 Glucose 125 H Calcium 9.3 Total Bilirubin 0.90 AST 26 ALT 42 Alkaline Phosphatase 76 Total Protein 7.7 Albumin 4.2 Globulin 3.5 Albumin/Globulin Ratio 1.2 Urine Color Urine Clarity Urine pH Ur Specific [place] Urine Protein Urine Glucose (UA) Urine Ketones Urine Occult Blood Urine Nitrite Urine Bilirubin Urine Urobilinogen Ur Leukocyte Esterase Urine RBC Urine WBC Ur Squamous Epith Cells Urine Bacteria Urine Mucus 06/18/20 09:25 WBC RBC Hgb Hct MCV MCH MCHC RDW Std Deviation RDW Coeff of [place] Plt Count MPV Immature Gran % (Auto) Neut % (Auto) Lymph % (Auto) [place] % (Auto) Eos % (Auto) Baso % (Auto) Absolute Neuts (auto) Absolute Lymphs (auto) Nucleated RBC % PT INR Sodium Potassium Chloride Carbon Dioxide Anion Gap BUN Creatinine Estim Creat Clear Calc Est GFR (MDRD) Af Amer Est GFR (MDRD) Non-Af BUN/Creatinine Ratio Glucose Calcium Total Bilirubin AST ALT Alkaline Phosphatase Total Protein Albumin Globulin Albumin/Globulin Ratio Urine Color Yellow Urine Clarity Clear Urine pH 6.0 Ur Specific [place] 1.020 Urine Protein Negative Urine Glucose (UA) Normal Urine Ketones 15 H Urine Occult Blood 250 H Urine Nitrite Negative Urine Bilirubin Negative Urine Urobilinogen Normal Ur Leukocyte Esterase Negative Urine RBC 5-10 SEEN Urine WBC 0 SEEN Ur Squamous Epith Cells 0 SEEN Urine Bacteria 0 SEEN Urine Mucus 0 SEEN - Medical Decision Making The patient presents with intermittent pain into his left testicle. He had recent cystoscopy. I did review his CT from 3 days ago which showed indirect inguinal hernia with intraperitoneal fat. He has no physical exam findings of testicular torsion. I did obtain ultrasound of the testicles and renal area which were both relatively unremarkable. After analgesics, the patient is lying flat and is totally pain-free. He does have easily reducible indirect inguinal hernia. I do suspect that he may be having intermittent incarceration of the fat that causes his pain referred along the testicular area. I discussed his case with both Dr. Bonilla and Dr. Mckeon who has done surgery on the patient before. At this point, I do feel it is safe for outpatient follow-up and he is agreeable with this plan of care. Impression 1. Left lower quadrant pain 2. Inguinal hernia ED Disposition - Plan for ED Patient: Instructions: ED Hernia Inguinal Referrals: Johan Collado MD [STAFF PHYSICIAN] -
--- NOTE | 2020-06-18 07:38 | US_ITS ---
STUDY: RENAL ULTRASOUND - COMPLETE REASON FOR EXAM: Male, 64 years old. HYDRO TECHNIQUE: Ultrasound evaluation of the kidneys was performed with real-time and static mancini-scale imaging. COMPARISON: Comparison is made with prior CT scan the abdomen dated 06/15/2020. FINDINGS: RIGHT KIDNEY: Normal location of the right kidney, which is normal in size. The right kidney measures 12.4 cm x 5.1 cm x 7.7 cm. There is a normal cortex of the right kidney. The renal cortex measures 1.6 cm. Parapelvic renal cysts. The largest measures 1 cm x 1 cm x 0.9 cm. There are no right renal calculi. There is mild hydronephrosis of the right kidney. DISTAL RIGHT URETER: There is non-visualization of the distal right ureter. There is no demonstrated right ureterovesical junction calculus. There is no demonstrated right ureteral jet. LEFT KIDNEY: Normal location of the left kidney, which is normal in size. The left kidney measures 13.3 cm x 5.8 cm x 6.0 cm. There is a normal cortex of the left kidney. The renal cortex measures 1.1 cm. Multiple parapelvic cysts. The larger measures 1.2 cm x 1 cm x 1.1 cm. There are no left renal calculi. There is mild hydronephrosis of the left kidney. DISTAL LEFT URETER: There is non-visualization of the distal left ureter. There is no demonstrated left ureterovesical junction calculus. There is no demonstrated left ureteral jet. BLADDER: The distended urinary bladder has a volume of 124 ml. There is a normal wall thickness of the distended urinary bladder. There is no demonstrated mass within the urinary bladder. There are no demonstrated bladder calculi. US/Kidney and Bladder IMPRESSION: Mild bilateral hydronephrosis. Small bilateral parapelvic renal cysts. Electronically Signed: Antoni Lawson, at 9:52 EDT , Service support ,
[2020-06-18] MEDS: Morphine 4 MG/ML Syringe IV ×2 (07:47→09:24)
[2020-06-18] MEDS: Ondansetron 4 MG/2 ML Vial IV (07:48)
[2020-06-18 07:52] LABS: Absolute Lymphocyte Count 0.39 X10^3/uL (0.83-4.51); Absolute Neutrophil Count 7.2 X10^3/uL (2.0-7.7); Basophil# 0.02 X10^3/uL; Basophil% 0.2 % (0-1); Eosinophil# 0.01 X10^3/uL; Eosinophils% 0.1 % (0-5); Hematocrit 46.4 % (40-54); Hemoglobin 15.6 g/dL (13.0-16.5); Lymphocyte # 0.39 X10^3/ul (4.0); Lymphocyte % 4.7 % (19-41); Mean Corp Hgb Conc 33.6 g/dL (32-36); Mean Corpuscular Hgb 30.6 pg (27.0-32.0); Monocyte# 0.62 X10^3/uL; Monocyte% 7.5 % (0-10); NRBC Flagged by Analyzer 0 % (0-5); Neutrophil # 7.17 X10^3/uL (2.7-7.7); Neutrophil % 87.1 % (47-70); POSITIVE DIFFERENTIAL YES; Platelet Count 121 K/mm3 (150-450); RBC Distribution Width SD 47.2 fl (35.1-43.9); White Blood Count 8.2 K/mm3 (4.4-11.0)
[2020-06-18 07:58] LABS: Differential Indicated SCAN CRITERIA MET
[2020-06-18 08:06] LABS: ALB/GLOB Ratio 1.2 RATIO (0.9-2.4); AST(SGOT) 26 U/L (15-37); Alanine Aminotransfer ALT/SGPT 42 U/L (16-61); Albumin, Serum 4.2 g/dL (3.2-5.0); Alkaline Phosphatase 76 U/L (45-117); Anion Gap 7 (5-15); BUN 23 mg/dL (7-18); BUN/Creat Ratio 16.8 RATIO (10-20); Calcium,Total 9.3 mg/dL (8.5-10.1); Chloride 108 mmol/L (98-107); Creatinine, Serum 1.37 mg/dL (0.70-1.30); EST Glomerular Filtration Rate 55 mL/min (>60); Est Glom Filt Rate - Afr Amer 67 mL/min (>60); Estimated Creatinine Clearance 54.76 ml/min; Globulin 3.5 g/dL (2.2-4.2); Glucose 125 mg/dL (74-106); Potassium 4.1 mmol/L (3.5-5.1); Protein, Total 7.7 g/dL (6.4-8.2); Sodium Level 140 mmol/L (136-145)
[2020-06-18 08:41] LABS: International Normalized Ratio 1.2
[2020-06-18 09:32] LABS: Bacteria 0 SEEN /hpf (None Seen); Mucous, Urine 0 SEEN /hpf (<or=2+); Squamous Epithelial Cells - UA 0 SEEN /hpf (0-5); White Blood Cells 0 SEEN /hpf (0-5)
[2020-06-18 09:33] VITALS: BP 189/83
[2020-06-18 09:54] LABS: Color, Urine Yellow (Yellow); Glucose, Dipstick Normal (Normal); Ketone-Dipstick 15 mg/dl (Negative); Leukocyte Esterase-Dipstick Negative /ul (Negative); Nitrite-Dipstick Negative (Negative); Occult Blood-Urine 250 /ul (Negative); Protein-Dipstick Negative (Negative); Urine Bilirubin Dipstick Negative (Negative); Urine Clarity Clear (Clear); Urine Urobilinogen Normal (Normal)
[2020-06-18 10:17] LABS: Red Blood Cells-Urine 5-10 SEEN /hpf (0-5)
[2020-06-18 10:43] VITALS: BP 147/96; PULSE 66; RESP 14
== END 2020-06-18 10:44 | disposition home or self-care (01) ==
LOC: ED 08:25
PROVIDERS: Emergency Provider Emergency Medicine; PCP Family Medicine Geriatric Medicine
DX: K40.90 Unilateral inguinal hernia, without obstruction or gangrene, not specified as recurrent (principal); I10 Essential (primary) hypertension; E03.9 Hypothyroidism, unspecified; Z79.01 Long term (current) use of anticoagulants; Z79.82 Long term (current) use of aspirin; Z79.52 Long term (current) use of systemic steroids; Z79.899 Other long term (current) drug therapy
CPT/HCPCS: 76770; 76870; 80053; 81001; 85025; 85610; 93976; 96361; 96374; 96375; 96376; 99284; J7030; A4216; J2405

== ENCOUNTER → 2020-07-13 09:59 | Outpatient (CLI) | payer OTHER, MEDICARE, SELFPAY ==
[2020-06-19 14:35] VITALS: BMI 29.5
[2020-07-13 12:32] LABS: Absolute Lymphocyte Count 0.78 X10^3/uL (0.83-4.51); Absolute Neutrophil Count 4.4 X10^3/uL (2.0-7.7); Basophil# 0.06 X10^3/uL; Eosinophil# 0.06 X10^3/uL; Hematocrit 47.7 % (40-54); Hemoglobin 15.5 g/dL (13.0-16.5); Lymphocyte # 0.78 X10^3/ul (4.0); Lymphocyte % 13.2 % (19-41); Mean Corp Hgb Conc 32.5 g/dL (32-36); Mean Corpuscular Hgb 29.5 pg (27.0-32.0); Mean Corpuscular Volume 90.7 fL (80-94); Mean Platelet Vol. 9.3 fl (6.2-12.0); Monocyte# 0.64 X10^3/uL; Monocyte% 10.8 % (0-10); NRBC Flagged by Analyzer 0 % (0-5); Neutrophil # 4.36 X10^3/uL (2.7-7.7); Neutrophil % 73.5 % (47-70); Platelet Count 168 K/mm3 (150-450); RBC Distribution Width CV 13.8 % (11.6-14.6); RBC Distribution Width SD 46.3 fl (35.1-43.9); Red Blood Count 5.26 M/mm3 (4.6-6.2); White Blood Count 5.9 K/mm3 (4.4-11.0)
[2020-07-13 13:13] LABS: ALB/GLOB Ratio 1.3 RATIO (0.9-2.4); AST(SGOT) 21 U/L (15-37); Alanine Aminotransfer ALT/SGPT 31 U/L (16-61); Alkaline Phosphatase 85 U/L (45-117); Anion Gap 4 (5-15); BUN 15 mg/dL (7-18); BUN/Creat Ratio 17.6 RATIO (10-20); Chloride 106 mmol/L (98-107); Creatinine, Serum 0.85 mg/dL (0.70-1.30); EST Glomerular Filtration Rate 95 mL/min (>60); Est Glom Filt Rate - Afr Amer 115 mL/min (>60); Globulin 3.1 g/dL (2.2-4.2); Glucose 64 mg/dL (74-106); Potassium 3.4 mmol/L (3.5-5.1); Protein, Total 7.1 g/dL (6.4-8.2); Sodium Level 140 mmol/L (136-145); Thyroid Stim Hormone (TSH) 2.01 uIU/mL (0.358-3.74)
[2020-07-15 08:13] LABS: Vitamin D,25 Hydroxy 30.3 ng/mL
== END ==
PROVIDERS: PCP Family Medicine Geriatric Medicine; Visit Provider Family Medicine Geriatric Medicine
DX: I10 Essential (primary) hypertension (principal); E55.9 Vitamin D deficiency, unspecified; Z12.5 Encounter for screening for malignant neoplasm of prostate
CPT/HCPCS: 36415; 80053; 82306; 84153; 84443; 85025; G0103

== ENCOUNTER → 2020-12-24 09:43 | Outpatient (CLI) | payer OTHER, MEDICARE, SELFPAY ==
[2020-06-19 14:35] VITALS: BMI 29.5
== END ==
PROVIDERS: PCP Family Medicine Geriatric Medicine; Referring Provider Urology; Visit Provider Urology
DX: Z12.5 Encounter for screening for malignant neoplasm of prostate (principal)

== ENCOUNTER → 2021-01-11 11:20 | Outpatient (CLI) | payer OTHER, MEDICARE, SELFPAY ==
[2020-06-19 14:35] VITALS: BMI 29.5
[2021-01-11 12:18] LABS: Absolute Lymphocyte Count 0.61 X10^3/uL (0.83-4.51); Absolute Neutrophil Count 3.5 X10^3/uL (2.0-7.7); Basophil# 0.05 X10^3/uL; Eosinophil# 0.07 X10^3/uL; Eosinophils% 1.4 % (0-5); Hematocrit 47.1 % (40-54); Hemoglobin 15.5 g/dL (13.0-16.5); Lymphocyte # 0.61 X10^3/ul (4.0); Lymphocyte % 12.6 % (19-41); Mean Corp Hgb Conc 32.9 g/dL (32-36); Mean Corpuscular Volume 91.3 fL (80-94); Mean Platelet Vol. 9.6 fl (6.2-12.0); Monocyte# 0.57 X10^3/uL; Monocyte% 11.8 % (0-10); NRBC Flagged by Analyzer 0 % (0-5); Neutrophil # 3.51 X10^3/uL (2.7-7.7); Neutrophil % 72.8 % (47-70); Platelet Count 162 K/mm3 (150-450); RBC Distribution Width SD 47.2 fl (35.1-43.9); Red Blood Count 5.16 M/mm3 (4.6-6.2); White Blood Count 4.8 K/mm3 (4.4-11.0)
[2021-01-11 12:32] LABS: Vitamin D,25 Hydroxy 27.8 ng/mL
[2021-01-11 12:38] LABS: ALB/GLOB Ratio 1.1 RATIO (0.9-2.4); AST(SGOT) 17 U/L (15-37); Alanine Aminotransfer ALT/SGPT 31 U/L (16-61); Albumin, Serum 3.7 g/dL (3.2-5.0); Alkaline Phosphatase 77 U/L (45-117); Anion Gap 5 (5-15); BUN 15 mg/dL (7-18); BUN/Creat Ratio 15.8 RATIO (10-20); Calcium,Total 8.9 mg/dL (8.5-10.1); Chloride 108 mmol/L (98-107); Creatinine, Serum 0.95 mg/dL (0.70-1.30); EST Glomerular Filtration Rate 84 mL/min (>60); Est Glom Filt Rate - Afr Amer 102 mL/min (>60); Globulin 3.4 g/dL (2.2-4.2); Glucose 92 mg/dL (74-106); Potassium 3.9 mmol/L (3.5-5.1); Protein, Total 7.1 g/dL (6.4-8.2); Sodium Level 141 mmol/L (136-145); Thyroid Stim Hormone (TSH) 1.66 uIU/mL (0.358-3.74)
== END ==
PROVIDERS: PCP Family Medicine Geriatric Medicine; Visit Provider Family Medicine Geriatric Medicine
DX: I10 Essential (primary) hypertension (principal); E55.9 Vitamin D deficiency, unspecified
CPT/HCPCS: 36415; 80053; 82306; 84443; 85025

== ENCOUNTER → 2021-01-20 08:22 | Outpatient (CLI) | payer OTHER, MEDICARE, SELFPAY ==
[2020-06-19 14:35] VITALS: BMI 29.5
--- NOTE | 2021-01-20 08:25 | BD_ITS ---
STUDY: DUAL ENERGY X-RAY ABSORPTIOMETRY / DXA REASON FOR EXAM: Male, 65 years old. M810 -- OSTEO. TECHNIQUE: Bone Mineral Density (BMD) measurements of lumbar spine and bilateral hips were obtained. COMPARISON: None. FINDINGS: Lumbar Spine (L1-L4): g/cm2 (1.484) / T-score (2.3) / Z-score (2.8) Findings are suggestive of normal bone density with a low fracture risk. Left Femur Total: g/cm2 (1.071) / T-score (-0.2) / Z-score (0.4) Left Femoral Neck: g/cm2 (0.983) / T-score (-0.7) / Z-score (0.5) Right Femur Total: g/cm2 (0.995) / T-score (-0.7) / Z-score (-0.1) Right Femoral Neck: g/cm2 (1.001) / T-score (-0.5) / Z-score (0.6) BD/Dexa Bone Density Study IMPRESSION: The patient is considered normal as outlined below according to World Michael Organization (WHO) criteria with a low fracture risk. Reference Information: The T-score is the number of standard deviations above or below the standard which is normal for young adults at their peak bone mineral density. The World Health Organization (WHO) interprets the T-scores as follows: Above -1 Normal bone density Between -1 and -2.5 Osteopenia Equal to / or below -2.5 Osteoporosis As a practical clinical guideline, osteopenia may be graded as follows: Mild -1 through -1.5 Moderate -1.6 through -2.0 Severe -2.1 through -2.4 The Z-score is the number of standard deviations above or below age-matched controls. A Z-score of less than -1.5 would be considered abnormal. References: 1. NIH Osteoporosis and Related Bone Diseases www osteo.org 2. International Society for Clinical Densitometry www iscd.org 3. National Osteoporosis Foundation www nof.org Electronically Signed: Antoni Lawson MD at 12:30 EDT , Service support ,
== END ==
PROVIDERS: PCP Family Medicine Geriatric Medicine; Referring Provider Family Medicine Geriatric Medicine; Visit Provider Family Medicine Geriatric Medicine
DX: M81.0 Age-related osteoporosis without current pathological fracture (principal)
CPT/HCPCS: 77080

== ENCOUNTER → 2021-06-10 15:07 | Outpatient (CLI) | payer OTHER, MEDICARE, SELFPAY ==
--- NOTE | 2021-06-10 15:09 | VDLE_ITS ---
Reason For Study: Edema RIGHT LEFT CFV is compressible, spontaneous, phasic, GSV is normal. competent and demonstrates normal CFV is compressible, spontaneous, phasic, augmentation. competent, and demonstrates normal Procedure augmentation. This is a venous duplex using B-mode, color FV is compressible, spontaneous, phasic, flow and spectral Doppler. competent and demonstrates normal Exam performed in department. augmentation. A preliminary report was called and/or faxed POP V is compressible, spontaneous, phasic, to Claude. competent and demonstrates normal augmentation. T/P Trunk is compressible. PTV is compressible. LT PerV is compressible. VL/Venous Duplex US, Unilateral Interpretation Summary Deep veins of the left lower extremity are patent and compressible segmentally. There is no evidence of left lower extremity deep vein thrombosis. Valvular competence appears intac t within the proximal deep venous system on the left . The left great saphenous vein appears patent a nd compressible segmentally. Ordering Physician: Wade Arce Referring Physician: Wade Arce Chi Performed By: Lucy Acosta RVT
== END ==
PROVIDERS: PCP Family Medicine Geriatric Medicine; Referring Provider Family Medicine Geriatric Medicine; Visit Provider Family Medicine Geriatric Medicine
DX: R60.9 Edema, unspecified (principal)
CPT/HCPCS: 93971

== ENCOUNTER → 2021-07-15 11:46 | Outpatient (CLI) | payer OTHER, MEDICARE, SELFPAY ==
[2021-07-15 12:30] LABS: Absolute Lymphocyte Count 0.64 X10^3/uL (0.83-4.51); Absolute Neutrophil Count 3.2 X10^3/uL (2.0-7.7); Basophil# 0.05 X10^3/uL; Basophil% 1.1 % (0-1); Eosinophil# 0.09 X10^3/uL; Eosinophils% 1.9 % (0-5); Hematocrit 43.7 % (40-54); Hemoglobin 14.5 g/dL (13.0-16.5); Lymphocyte # 0.64 X10^3/ul (0.83-4.51); Lymphocyte % 13.8 % (19-41); Mean Corp Hgb Conc 33.2 g/dL (32-36); Mean Corpuscular Hgb 29.6 pg (27.0-32.0); Mean Corpuscular Volume 89.2 fL (80-94); Mean Platelet Vol. 9.7 fl (6.2-12.0); Monocyte# 0.64 X10^3/uL; Monocyte% 13.8 % (0-10); NRBC Flagged by Analyzer 0 % (0-5); Neutrophil % 69.2 % (47-70); Platelet Count 157 K/mm3 (150-450); RBC Distribution Width SD 45.3 fl (35.1-43.9); White Blood Count 4.6 K/mm3 (4.4-11.0)
[2021-07-15 12:53] LABS: Vitamin D,25 Hydroxy 29.5 ng/mL
[2021-07-15 12:58] LABS: AST(SGOT) 24 U/L (15-37); Alanine Aminotransfer ALT/SGPT 36 U/L (16-61); Albumin, Serum 3.6 g/dL (3.2-5.0); Alkaline Phosphatase 65 U/L (45-117); Anion Gap 5 (5-15); BUN 20 mg/dL (7-18); BUN/Creat Ratio 18.7 RATIO (10-20); Chloride 112 mmol/L (98-107); Creatinine, Serum 1.07 mg/dL (0.70-1.30); EST Glomerular Filtration Rate 73 mL/min (>60); Est Glom Filt Rate - Afr Amer 88 mL/min (>60); Globulin 3.7 g/dL (2.2-4.2); Glucose 81 mg/dL (74-106); PSA,Total - Annual Screen 1.02 ng/mL (0.00-4.00); Potassium 3.9 mmol/L (3.5-5.1); Protein, Total 7.3 g/dL (6.4-8.2); Sodium Level 143 mmol/L (136-145); Thyroid Stim Hormone (TSH) 2.51 uIU/mL (0.358-3.74)
== END ==
PROVIDERS: PCP Family Medicine Geriatric Medicine; Visit Provider Family Medicine Geriatric Medicine
DX: I10 Essential (primary) hypertension (principal); E55.9 Vitamin D deficiency, unspecified; Z12.5 Encounter for screening for malignant neoplasm of prostate
CPT/HCPCS: 36415; 80053; 82306; 84153; 84443; 85025; G0103

== ENCOUNTER → 2021-09-01 07:58 | Outpatient (CLI) | payer OTHER, MEDICARE, SELFPAY ==
--- NOTE | 2021-09-01 08:01 | ECHOD_ITS ---
Reason For Study: Presence of prosthetic heart valve (MV) Procedure This was a 2D Doppler, Color Flow transthoracic echocardiogram. Exam performed in department. Left Ventricle Normal LV size. Mild concentric left ventricular hypertrophy. Left ventricular systolic function is normal. The estimated ejection fraction is 53 %. Stage 1 diastolic dysfunction. There is mild global hypokinesis of the left ventricle. Right Ventricle Normal RV size. Normal systolic function. Atria The left atrium is mildly enlarged. Normal right atrium. Mitral Valve Mitral valve annuloplasty repair. Tricuspid Valve Normal tricuspid valve. Mild (1+) tricuspid valve insufficiency. Pulmonary artery systolic pressure is 35 mmHg. Aortic Valve Trisinus/trileaflet aortic valve. Great Vessels Normal aortic root. The pulmonary artery is normal size. Normal inferior vena cava. Pericardium/Pleural No pericardial effusion. MMode/2D Measurements & Calculations LVIDd: 4.1 cm IVSd: 1.2 cm Ao root diam: 3.7 cm LVIDs: 2.8 cm LVPWd: 1.2 cm RVDd: 3.6 cm FS: 30.7 % LAV(MOD-bp): 91.1 ml LA A4 area: 22.3 cm2 LA dimension(2D): 4.3 cm LAV(MOD-bp) Indexed: 41.0 ml/m2 LAV(MOD-sp2): 86.0 ml LAV(MOD-sp4): 80.4 ml RA A4 area: 18.8 cm2 Time Measurements MV dec time: 0.25 sec Doppler Measurements & Calculations MV E max binu: 136.2 cm/sec Lat Peak E' Binu: 15.4 cm/sec Med Peak E' Binu: 10.5 cm/sec MV A max binu: 186.4 cm/sec E/E' lat: 8.9 E/E' med: 12.9 MV E/A: 0.73 MV V2 max: 202.0 cm/sec Ao V2 max: 129.0 cm/sec LV V1 max: 100.7 cm/sec MV max P.4 mmHg Ao max P.7 mmHg LV V1 max P.1 mmHg MV V2 mean: 134.3 cm/sec MV mean P.7 mmHg MV V2 VTI: 50.5 cm PA V2 max: 83.2 cm/sec PI end-d binu: 142.0 cm/sec TR max binu: 274.3 cm/sec TR max P.1 mmHg PI dec slope: 225.1 cm/sec2 ECHO/Echo Complete Interpretation Summary Normal LV size. Left ventricular systolic function is normal. The estimated ejection fraction is 53 %. Stage 1 diastolic dysfunction. Mitral valve annuloplasty repair. Pulmonary artery systolic pressure is 35 mmHg. Ordering Physician: Sudarshan Cuellar Referring Physician: Wade Arce Chi Performed By: Jacinda Rogers, DIANE, RVT
== END ==
PROVIDERS: PCP Family Medicine Geriatric Medicine; Referring Provider Internal Medicine Cardiovascular Disease; Visit Provider Internal Medicine Cardiovascular Disease
DX: Z95.2 Presence of prosthetic heart valve (principal); Z98.890 Other specified postprocedural states
CPT/HCPCS: 93306

== ENCOUNTER → 2021-10-06 16:15 | Outpatient (CLI) | payer OTHER, MEDICARE, SELFPAY ==
--- NOTE | 2021-10-06 16:25 | RAD_ITS ---
STUDY: X-RAY - LUMBAR SPINE REASON FOR EXAM: Male, 66 years old. LOW BACK PAIN TECHNIQUE: 3 view(s) of the lumbar spine were obtained. COMPARISON: 04/21/2020 FINDINGS: Normal lumbar lordosis. Mild levoscoliosis centered at L3. There is a normal alignment of the vertebrae. There is multilevel endplate spondylosis of the lumbar vertebrae. There is multi-level degenerative disc disease with multi-level disc space narrowing. Facet hypertrophy lower lumbar spine. The soft tissue structures are unremarkable. RAD/Lumbar Spine 2 or 3 Views IMPRESSION: Mild levoscoliosis with diffuse degenerative disc disease. MRI would be useful. Electronically Signed: Dylan Yates MD at 17:04 EST Tel , Service support ,
--- NOTE | 2021-10-06 16:25 | RAD_ITS ---
STUDY: X-RAY - PELVIS AND RIGHT HIP REASON FOR EXAM: Male, 66 years old. R HIP PAIN TECHNIQUE: 3 views of the pelvis and hip. COMPARISON: 04/21/2020 FINDINGS: There is a non-specific bowel gas pattern. Normal visualized soft tissue structures. Normal bilateral iliac wings, sacroiliac joints and visualized sacrum. Normal bilateral superior and inferior pubic rami. Normal pubic symphysis. Normal bilateral ischial tuberosities. Irregular radiolucency of the femoral head suggestive of avascular process. Correlation with MRI is recommended. Normal acetabulum. Normal hip joint. 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 Correlation with MRI is recommended. Electronically Signed: Dylan Yates MD at 17:06 EST Tel , Service support ,
== END ==
PROVIDERS: PCP Family Medicine Geriatric Medicine; Referring Provider Family Medicine Geriatric Medicine; Visit Provider Family Medicine Geriatric Medicine
DX: M54.50 Low back pain, unspecified (principal); M25.559 Pain in unspecified hip
CPT/HCPCS: 72100; 73502

== ENCOUNTER 2021-10-22 10:57 | Outpatient (CLI) | payer OTHER, MEDICARE, SELFPAY ==
--- NOTE | 2021-10-22 11:30 | MRI_ITS ---
STUDY: MRI RIGHT HIP REASON FOR EXAM: Right hip and groin pain for approximately 2 months. TECHNIQUE: Standardized fat and water weighted pulse sequences were obtained in all 3 orthogonal planes. COMPARISON: Radiographs 10/06/2021. FINDINGS: There is a right hip joint effusion (proton-density sagittal images 12-15). There is very mild subchondral bone edema of the right superior acetabulum (inversion recovery coronal images 18-20), a stress phenomenon. Normal labrum. There is avascular necrosis of the right femoral head (T1 coronal images 18-21) with associated bone edema extending into the femoral neck. There is a small focus of avascular necrosis of the contralateral left femoral head (T1 coronal images 18, 19). Normal gluteus minimus, medius and iliopsoas tendons and distal insertions. There is no trochanteric, iliopsoas or iliopectineal bursitis. Normal superior and inferior pubic rami. Normal pubic symphysis. Normal ischial tuberosity. Normal origin of the hamstring tendons. Normal visualized iliac wing, sacroiliac joint, and sacral ala. There is a left inguinal hernia containing adipose tissue (T1 coronal image 29). 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 Very mild subchondral bone edema of the right superior acetabulum, a stress phenomenon. Right hip joint effusion. Small focus of avascular necrosis of the contralateral left femoral head. Electronically Signed: Robbie Jansen MD at 13:40 EST Tel , Service support ,
== END 2021-10-22 23:59 | disposition short-term general hospital (02) ==
LOC: MRI 10:59
PROVIDERS: PCP Family Medicine Geriatric Medicine; Referring Provider Family Medicine Geriatric Medicine; Visit Provider Family Medicine Geriatric Medicine
DX: M87.9 Osteonecrosis, unspecified (principal)
CPT/HCPCS: 73721

== ENCOUNTER 2021-12-27 11:36 | Outpatient (CLI) | payer OTHER, MEDICARE, SELFPAY ==
[2021-12-27 12:15] LABS: Absolute Neutrophil Count 3.2 X10^3/uL (2.0-7.7); Basophil# 0.03 X10^3/uL; Basophil% 0.7 % (0-1); Eosinophil# 0.06 X10^3/uL; Eosinophils% 1.4 % (0-5); Hematocrit 42.3 % (40-54); Hemoglobin 14.1 g/dL (13.0-16.5); Lymphocyte % 11.7 % (19-41); Mean Corp Hgb Conc 33.3 g/dL (32-36); Mean Platelet Vol. 9.4 fl (6.2-12.0); Monocyte# 0.47 X10^3/uL; NRBC Flagged by Analyzer 0 % (0-5); Neutrophil # 3.21 X10^3/uL (2.7-7.7); POSITIVE DIFFERENTIAL YES; Platelet Count 157 K/mm3 (150-450); RBC Distribution Width CV 14.9 % (11.6-14.6); RBC Distribution Width SD 47.2 fl (35.1-43.9); Red Blood Count 4.86 M/mm3 (4.6-6.2); White Blood Count 4.3 K/mm3 (4.4-11.0)
[2021-12-27 12:16] LABS: Differential Indicated SCAN CRITERIA MET
[2021-12-27 12:22] LABS: International Normalized Ratio 2.1; Prothrombin Time (Protime)PT. 23.2 SECONDS (11.7-14.9)
[2021-12-27 12:56] LABS: Anion Gap 2 (5-15); BUN 17 mg/dL (7-18); BUN/Creat Ratio 18.3 RATIO (10-20); Calcium,Total 9.4 mg/dL (8.5-10.1); Chloride 110 mmol/L (98-107); Creatinine, Serum 0.93 mg/dL (0.70-1.30); EST Glomerular Filtration Rate 86 mL/min (>60); Est Glom Filt Rate - Afr Amer 104 mL/min (>60); Glucose 96 mg/dL (74-106); Potassium 3.8 mmol/L (3.5-5.1); Sodium Level 140 mmol/L (136-145)
[2021-12-28 12:56] LABS: Pathologist Review Reviewed
[2021-12-30 11:36] LABS: Albumin, Serum 3.9 g/dL (3.2-5.0)
== END 2021-12-27 23:59 | disposition home or self-care (01) ==
LOC: POLAB3 11:40
PROVIDERS: PCP Family Medicine Geriatric Medicine; Visit Provider Family Medicine Geriatric Medicine
DX: Z01.810 Encounter for preprocedural cardiovascular examination (principal); M87.051 Idiopathic aseptic necrosis of right femur; M16.11 Unilateral primary osteoarthritis, right hip
CPT/HCPCS: 36415; 80048; 82040; 85025; 85610

== ENCOUNTER 2022-01-17 09:37 | Outpatient (CLI) | payer OTHER, MEDICARE, SELFPAY ==
[2022-01-17 12:23] LABS: Absolute Lymphocyte Count 0.63 X10^3/uL (0.83-4.51); Absolute Neutrophil Count 3.7 X10^3/uL (2.0-7.7); Basophil# 0.03 X10^3/uL; Basophil% 0.6 % (0-1); Eosinophil# 0.06 X10^3/uL; Eosinophils% 1.2 % (0-5); Hemoglobin 14.5 g/dL (13.0-16.5); Lymphocyte # 0.63 X10^3/ul (0.83-4.51); Lymphocyte % 12.5 % (19-41); Mean Corp Hgb Conc 32.2 g/dL (32-36); Mean Corpuscular Hgb 28.4 pg (27.0-32.0); Mean Corpuscular Volume 88.1 fL (80-94); Mean Platelet Vol. 9.1 fl (6.2-12.0); Monocyte# 0.63 X10^3/uL; Monocyte% 12.5 % (0-10); NRBC Flagged by Analyzer 0 % (0-5); Neutrophil # 3.68 X10^3/uL (2.7-7.7); Platelet Count 173 K/mm3 (150-450); RBC Distribution Width CV 14.3 % (11.6-14.6); RBC Distribution Width SD 46.4 fl (35.1-43.9); Red Blood Count 5.11 M/mm3 (4.6-6.2)
[2022-01-17 12:37] LABS: AST(SGOT) 20 U/L (15-37); Alanine Aminotransfer ALT/SGPT 32 U/L (16-61); Albumin, Serum 3.6 g/dL (3.2-5.0); Alkaline Phosphatase 82 U/L (45-117); Anion Gap 2 (5-15); BUN 21 mg/dL (7-18); BUN/Creat Ratio 24.6 RATIO (10-20); Calcium,Total 9.2 mg/dL (8.5-10.1); Chloride 108 mmol/L (98-107); Creatinine, Serum 0.85 mg/dL (0.70-1.30); EST Glomerular Filtration Rate 95 mL/min (>60); Est Glom Filt Rate - Afr Amer 115 mL/min (>60); Globulin 3.7 g/dL (2.2-4.2); Glucose 84 mg/dL (74-106); Potassium 4.2 mmol/L (3.5-5.1); Protein, Total 7.3 g/dL (6.4-8.2); Sodium Level 138 mmol/L (136-145); Vitamin D,25 Hydroxy 37.9 ng/mL
== END 2022-01-17 23:59 | disposition home or self-care (01) ==
LOC: POLAB3 09:39
PROVIDERS: PCP Family Medicine Geriatric Medicine; Visit Provider Family Medicine Geriatric Medicine
DX: E55.9 Vitamin D deficiency, unspecified (principal); I10 Essential (primary) hypertension
CPT/HCPCS: 36415; 80053; 82306; 84443; 85025

== ENCOUNTER 2022-01-19 07:13 | Observation (INO) | payer OTHER, MEDICARE, SELFPAY ==
--- NOTE | 2021-12-29 22:22 | HP.PCM_ITS ---
History and Physical History and Physical [facility] Patient Name: Olayinka Olivares : 1955 From: GEORGE HAMLIN PA-C DATE OF SURGERY: 01/19/2022 SCHEDULED PROCEDURE: right total hip arthroplasty HISTORY OF PRESENT ILLNESS: Preoperative history and physical exam was performed on December 29, 2021. This is a 66-year-old male who is had increased pain since August 2021 with his right hip. He does report having pain over 1 year ago but did resolve until August. He was initially seen and followed by his primary care physician Dr. Arce. Patient did have a MRI ordered for his hip pain. He was also placed on oral prednisone taper by his primary care physician. Patient's pain has been intermittent, aching, sharp, stabbing. Pain is increased with going up and down stairs, sitting, walking and standing. 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 He states after working 6 hours he starts having increased pain and soreness in the hip. He does get started up pain. Pain can reach as high as an 8/10 with activities. He has difficulty with activities of daily living including getting dressed and putting on his socks and shoes, as well as showering and managing stairs. He has tripped/stumbled due to the pain. He gets right groin pain. Patient has tried oral medications including Tylenol with no relief. He has been through animal care worker without relief. Patient has been using I cane. He has medical history pertinent for a autoimmune disorder in which she was diagnosed in 2018 which did require him to be on stero ids for over one year. Since 2019 he has been off the steroids. He also reports being admitted into the hospital in 2019 with a blood infection which affected his heart. At that time he required open heart surgery with valve replacement. He has currently followed by a local bb shot packer Dr. Cuellar. Patient is currently on Coumadin due to this valve replacement. He has been given clearance to stop the Coumadin 3-5 days prior to surgery. Patient is also getting surgical clearance from the primary care physician Dr. Arce. He does report having a previous pulmonary embolism in 2018. He has medical history is well pertinent for hypertension, lumbar degenerative disc disease, hypothyroid, and autoimmune disorder of cryoglobulinemia syndrome. Patient currently denies any chest pain, shortness of breath, fevers chills, or recent infections. Patient was able to discuss and meet Dr. Preston Helm at the preoperative visit and all questions were answered. MRI of the right hip did reveal avascular necrosis of the femoral head with bone edema. There was also evidence of early stage of left hip avascular necrosis but patient appears to be asymptomatic at this time. After failing conservative measures, the patient does wish to proceed with a left total hip arthroplasty. REVIEW OF SYSTEMS: Review Of Systems: Constitutional: Reports weight change, but denies anorexia, change in appetite, fever and difficulty sleeping. Cardiovasular: Denies chest pain, heart murmur, irregular heartbeat and peripheral vascular disease. Respiratory: Denies asthma, cough, pneumonia, sleep apnea, shortness of breath, tuberculosis and wheezing. Gastrointestinal: Denies constipation, diarrhea, heartburn, nausea, rectal itching, bloody stools and vomiting. Genitourinary: Denies incontinence. Musculoskeletal: Reports pain and trouble walking, but denies leg swelling and weakness. Skin: Denies Raynaud's, history of shingles and tattoo. Neurological: Reports numbness/tingling but denies ambulatory dysfunction, dizziness and tremor. Psychiatric: Denies anxiety, depression, insomnia, mental illness and stress. Hematologic/Lymphatic: Reports anemia and past transfusion, but denies bleeding/bruising tendency. Reviewed and updated. PAST MEDICAL HISTORY: Advance Care Plan: No Advance Directives Effective Date: 11/15/2021 Past Medical History: Medical Problems: High Blood Pressure, Thyroid Disease blood infection - 2019 cryoglobulinemia syndrome, History of Pulmonary Embolism 2018 Accidents: Chain Saw To The Face - ORBIT OF LT EYE REBUILT Other - RECONSTRUCTED EYEBROW LT EYE Surgical Hx: Cataract SX - LT EYE Appendectomy - [facility] Hernia Repair - [facility] Heart Valve Replacement, Heart Stent Partial Cornea Transplnat - (2019) Anesthesia Complications: None Assistive Devices: Glasses, Dentures Reviewed and updated. 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 Personal Habits: Cigarette Use: Never Smoked Cigarettes.Smokeless Tobacco: Never Used Smokeless Tobacco.E-Cigarette Use: Never used.Alcohol: Denies use.Drug Use: Denies Use.Enjoy Exercising: Daily. Reviewed and updated. VITALS: Ht: 69.8 Wt: 227lb 4oz Wt k.081 BMI: 32.8 BP: 138/82 Pulse: 62 Resp: 16 T: 98.3 T: 36.8C Pain Level: 2 O2SatR: 96 ALLERGIES: Statin Drugs MEDICATIONS: Metoprolol Tartrate 25 mg 1/2 by mouth every day, Acetaminophen 500 mg prn, Famotidine 40 mg 1 by mouth every day, Ergocalciferol 1.25 MG (75128 Ut) as directed, Aspirin Adult Low Dose 81 mg by mouth 1 a day, Fluticasone Propionate Nasal [place] Allergy Relief 24- Hour 50 mcg/Act 2 puffs daily, Levothyroxine Sodium 50 mcg 1po qday, Warfarin Sodium 4 mg 1po qday, Amlodipine Besylate 5 mg 1 by mouth every day, Multivitamin take 1 tablet by mouth once daily., Prednisolone Acetate P-F 1 % 2 drops in lt eye, daily, Vitamin B Complex PRE-OP EXAM: General appearance:NORMAL Other: Eyes: Conjunctivae and lids: NORMAL Pupils: ERR Ears, Nose, Mouth, and Throat: NORMAL Other: Inspection of lips, teeth and gums: NORMAL Other: Neck: Examination of neck: no masses noted. Respiratory: Assessment of respiratory effort: NORMAL Other: Auscultation of lungs: clear to auscultation no wheezes, rhonchi or rales. Cardiovascular: Auscultation of heart: regular rate and rhythm, no murmurs, ga llops or rubs. PHYSICAL EXAMINATION: Patient does walk with an antalgic gait. Right hip has tenderness to palpation of the anterior hip and into the groin. Range of motion: Obligatory external rotation with flexion to approximately 100, internal rotation 25, external rotation 45 with increased pain. Left hip 115 flexion with internal rotation to 25, and rotation 45. Positive pain with Matheus's on the right hip. Sensation intact to light touch. Negative logroll bilaterally. IMAGING STUDIES: Previous x-rays of the right hip reveal flattening of the femoral head with a crescent sign consistent with avascular necrosis. Mild joint space narrowing of the right hip. There is cam lesion off the femoral head consistent with femoral acetabular impingement. Previous MRI of the right hip that was treated [facility] on October 22, 2021 does reveal avascular necrosis of the right femoral head with bony edema. There is joint effusion. Edema of the right superior acetabulum. There is also evidence of avascular necrosis of the left hip. MRI was also consistent with left inguinal hernia. IMPRESSION: 1. Right hip pain with osteoarthritis and avascular necrosis of the femoral h ead 2. Hypertension 3. History of pulmonary embolism 2018 4. History of heart valve replacement: Currently on Coumadin 5. Thyroid disease 6. Cryoglobulinemia syndrome PLAN: I did discuss and review with the patient all treatment options including surgical versus nonsurgical options. Patient does wish to proceed with the above-stated procedure. Potential risks, benefits, and complications of the procedure were discussed in detail including but not limited to , infection, nerve and blood vessel damage, persistent pain, numbness, tingling, paresthesias, blood clot, pulmonary embolism, and requirement for possible further surgery. The patient expressed full understanding and has no further questions for the doctor. Patient does agree to proceed with the above-stated procedure and has signed the surgery consent form. We discussed the current risks associated with COVID 19. This does include the risk of exposure while in the hospital. Patient was reassured local hospitals h ave low infection rates and are taking all necessary precautions to avoid exposure to patients. In addition, we discussed strategies that can be used to help limit exposure including those that limit the patient's time in the hospital. Also using strategies to limit the patient's need for continued inpatient services after being discharged from the hospital. Patient was notified that we will need to comply with any screening or testing the hospital wishes to perform or that surgery may be delayed for any positive results. This dictation was created using voice recognition software. Phonetic and/or grammatical errors may exist. ___ I have re-examined the patient. There are no clinical changes since date of exam. ___ See progress notes for changes. ___ Dictated on admission Date: Time: Signature:
[2022-01-06 11:36] LABS: Thyroid Stim Hormone (TSH) 2.34 uIU/mL (0.358-3.74)
[2022-01-19] VITALS (10 sets, daily range): BP systolic 100–137; BP diastolic 61–88; PULSE 55–80; RESP 16–18; TEMP 36.1–37; O2SAT 94–99; BMI 32.8; BMI 33.3
--- NOTE | 2022-01-19 | HIP_PTH ---
PATIENT: SOWMYA PAREDES LOC: [facility]3 U#:[id number] AGE/SX: 66/M ROOM: AL317 RE01/19/[address]: Dr. Preston Helm MD : 1955 BED: 1 DIS: 01/21/2022 SPEC #: [id number] RECD: 01/19/22 13:40 STATUS: CLINT THOMASON #: [id number] OSCAR: 01/19/22 00:[address]: Preston Helm DEPT: SURGICAL PATHOLOGY RECD BY: Lisandro Morgan ENTERED: 01/20/22 07:49 SP TYPE: TOTAL HIP OTHR DR: MD Dr. Wade James Chi, MD Tissues: Hip, NOS Procedures: Decalcification bone/plaque Surgery Specimen Level IV HEADER OPERATION: ERAS, total hip anterior approach PRE-OP DIAGNOSIS: Right hip pain with osteoarthritis and avascular necrosis of femoral head TISSUE SUBMITTED: Tissue and bone right hip MICROSCOPIC DIAGNOSIS Right hip bone and soft tissue, total hip replacement/resection: Femoral head with mild osteoarthritic changes and focal changes consistent with avascular necrosis. A piece of dense fibroconnective tissue and reactive synovial tissue. WILTON:ashley 01/24/2022 MICROSCOPIC DESCRIPTION Slides are reviewed. GROSS DESCRIPTION Received is one container labeled with the patient's name and designated tissue and bone right hip. The specimen consists of a porras femoral head measuring 5 x 5 x 5 cm. The articular surface shows a cracked possible area of avascular necrosis measuring 3.5 cm in greatest width. The articular surface shows focal area of erosion. Also present at the top of the femoral head is a piece of soft tissue measuring 4 x 0.5 x 0.1 cm. Also present in the container is a piece of bone, consistent with portion of femoral neck, measuring 4.5 x 3 x 1.4 cm. A wedge-shaped porras-light yellow area is noted underneath the articular surface measuring 3 x 0.5 cm. Job Developer sections are submitted in three cassettes as follows: 1 - soft tissue, entirely submitted, 2 & 3 - femoral head after decalcification. / WILTON:ashley 01/20/2022 TC:5 CPT: 14209, 64428
[2022-01-19] MEDS: Lactated Ringers 1,000 ML 999 ML IV (06:47)
[2022-01-19 06:59] LABS: International Normalized Ratio 1.2; Prothrombin Time (Protime)PT. 14.5 SECONDS (11.7-14.9)
[2022-01-19] MEDS: Gabapentin 600 MG Tablet PO (07:06)
[2022-01-19] MEDS: Acetaminophen 500 MG Tablet 1000 MG PO ×3 (07:06→22:04)
--- NOTE | 2022-01-19 07:16 | OP.PCM_ITS ---
Report of Operation Date of Procedure: 01/19/22 Pre-Operative Diagnosis: Right hip avascular necrosis Post-Operative Diagnosis: Right hip avascular necrosis Surgery/Procedure Performed:: Right minimally invasive direct anterior total hip replacement Description of Surgical Findings:: Stable hip with equal leg length. Clear signs of avascular necrosis collapse Surgeon: Preston Helm bacteriology technician: Dara Patel Type of Anesthesia: Spinal Special Medications: 2 g Ancef, 2 g TXA Lavage prior to skin in the room closure, 10 mg Decadron, joint cocktail (5 mg Duramorph, 30 mL of 0.5% Ropivicaine, 1000 units of epinephrine, 30 mg of Toradol) Specimen's removed: Bony cuts, femoral head Estimated Blood Loss (mL): 250 Fluids Replaced: 1000 mL crystalloid Description of Procedure: Components used: 1. Accolade 2 Samira femoral stem size 6 127? 2. Slater trident 2 acetabular shell size 52 mm 3. Slater X3 polyethylene E 4. Samira Biolox delta 36mm, -5mm femoral head Brief history operative indications: 66 yo M who failed conservative measures for their hip osteoarthritis. X-rays were consistent with osteoarthritis including joint space narrowing, osteophyte formation and subchondral cysts. Total hip replacement was discussed with the patient with risks and benefits including but not limited to blood loss, DVTs, PEs, neurovascular damage, dislocation, general risks of anesthesia including loss of life. Patient demonstrated an understanding medical clearance is obtained the patient was consented for surgery. Procedure: On the date of procedure the patient's right hip was marked in the preoperative area. Patient was then taken back to the operating room where anesthesia assumed control of the C-spine and airway and administered anesthetic. Patient was transferred to the operating table and placed in the supine position. The hips were placed at the break of the bed and a sacral bump was placed. The right lower extremity was then prepped out in a sterile fashion using chlorhexidine while the surgeon scrubbed. The PA was vital in the positioning of the patient. Upon reentering the room the right lower extremity was draped in the standard orthopedic fashion and the incision was marked. A timeout was called and everyone agreed upon the side, the site, the procedure be performed, antibody given, and patient's identity. At this time incision was made through skin, subcutaneous tissue, and fat down to fascia. The fascia was then incised and the TFL was retracted laterally. A retractor was placed on the lateral border of the femoral neck. Attention was directed to the inferior portion of the approach and all crossing vessels were identified and appropriately coagulated. A retractor was then placed on the medial portion of the femoral neck. The anterior capsule was then cleared of all soft tissue and then H shaped capsulotomy was made. The retractors were then placed inside the capsule. The femoral neck was identified and a cleanup cut was made. At this time a power corkscrew was used to remove the femoral head. Attention was then turned toward the acetabulum where the soft tissues were appropriately retracted and the acetabulum was sequentially reamed to 51 mm. A 52 mm cup was then selected and impacted into place. Acetabular liner was impacted into place and locking mechanism was verified. The position of the acetabular cup was then verified under live fluoroscopy. Attention was then turned to the femur. Soft tissue releases on the medial and lateral femoral neck were appropriately done, the leg was externally rotated and lateralized. A Singer retractor was placed medially and proximally to the greater trochanter this allowed appropriate visualization and exposure of the femoral canal. Rongeour was then used to remove excess lateral bone. A canal finder and entry broach were used to open the proximal canal. Once we verified we were down the femoral canal we subsequently broached up to a size 6 femur. The appropriate neck was placed in the previously selected head was trialed with a -5 mm neck. Traction was pulled and the hip was reduced with internal rotation. Once it was appropriately reduced and stability was checked. There was minimal shuck, equal leg lengths and appropriate stability with hyperextension and external rotation as well as with 90? flexion and internal rotation. Fluoroscopy was then also used to verify the position of the components and leg lengths using the contralateral side for comparison. The trial components were then dislocated the proximal femur was again exposed and the components were removed from the wound. The final components were verified and opened. The wound was copiously irrigated out with normal saline. The acetabulum was checked for any residual debris. The final components were placed and impacted. Traction and internal rotation were again used to reduce the hip. After adequate reduction the hip remained stable with appropriate leg lengths. The final components were once again checked with live fluoroscopy and were found to be satisfactory. The wound was then copiously irrigated with normal saline once more, and hemostasis was obtained. Closure was then done using #1 Vicryl runner to close the fascia. A 2-0 vicryl interuppted sutures were used to close the subcutaneous skin. A 3-0 Monocryl and Steri-Strips were used for final skin closure. A Silverlon dressing was placed. Patient was awakened by anesthesia and transferred to the [facility]. Patient was then transferred to the PACU for recovery. Postoperative plan: Patient will get 24 hours postop antibiotics. Patient will get in-house physical therapy and will be weight-bear as tolerated. Patient will follow up in office in 2 weeks for a wound check and x-rays. Patient will resume Coumadin tomorrow for DVT prophylaxis. Complications No intraoperative complications Admit VTE Documentation VTE Present on Admission: No VTE Mechan Device Prophylaxis: SCD's and Thigh High REI Hose VTE Pharm Prophylaxis ordered?: Yes
[2022-01-19] MEDS: Cefazolin 2 GM in 0.9% Normal Saline 100 ML IV (07:31)
[2022-01-19 07:41] LABS: Bedside Glucose 101 mg/dL (74-106)
--- NOTE | 2022-01-19 08:25 | RAD_ITS ---
STUDY: X-RAY - PELVIS AND RIGHT HIP REASON FOR EXAM: Male, 66 years old. Pain. Right total knee arthroplasty. TECHNIQUE: 2 views of the pelvis and hip. COMPARISON: 01/19/2022, earlier in the day and 10/06/2021. FINDINGS: There is a total hip arthroplasty in anatomic alignment with expected post-operative findings. There are no complications noted. RAD/Hip 1 view with Pelvis IMPRESSION: Placement of total hip arthroplasty in anatomic alignment without complications. Electronically Signed: Edy Madsen MD at 10:02 EDT ,
--- NOTE | 2022-01-19 08:25 | RAD_ITS ---
STUDY: X-RAY - PELVIS AND RIGHT HIP REASON FOR EXAM: Male, 66 years old. Post Op -- AP both hips on single heather/lateral of op hip PACU TECHNIQUE: 2 views of the pelvis and hip. COMPARISON: Comparison is made with prior study dated 10/06/2021. FINDINGS: The patient is status post right total hip replacement. There is good alignment. Postoperative soft tissue changes. RAD/Hip Min 2 Views (Portable) IMPRESSION: Status post right total hip replacement. There is good alignment. Postoperative soft tissue changes. Electronically Signed: Antoni Lawson MD at 10:02 EDT ,
[2022-01-19] MEDS: TXA in NS 100ml (Placed in Wound) OPERA.SITE (08:40)
[2022-01-19] MEDS: Lactated Ringers 1,000 ML 125 ML IV (11:26)
--- NOTE | 2022-01-19 12:06 | PCM.PN.HOSP ---
Subjective Subjective Follow-up on right arthroplasty: 56-year-old male with past medical history of hypertension, history of PE, cryoglobulinemia who comes in for elective right hip arthroplasty. Patient has had right hip pain ongoing since August 2021. Pain has been getting worse, and affects his activities of daily living. Patient underwent right minimally invasive direct anterior total hip replacement. He was seen in the postoperative. He denies any new complaints. He denied any chest pain or dizziness or palpitations. Objective Data Objective Data Vital Signs: Vital Signs Temp Pulse Resp BP Pulse Ox 97.4 F L 62 18 122/74 H 96 01/19/22 11:03 01/19/22 11:03 01/19/22 11:03 01/19/22 11:03 01/19/22 11:03 Oxygen Flow Rate (L/min) 4 Oxygen Delivery Method Nasal Cannula Weight: 105.5 kg Body Mass Index (BMI) 33.3 Intake & Output: Intake and Output for Last 24 Hours 01/17/22 01/18/22 01/19/22 23:59 23:59 23:59 Intake Total 2109 Balance 2109 Lab / Micro Data Labs: Laboratory Results - last 24 hr 01/19/22 06:16: POC Glucose 101 01/19/22 06:17: POC PT Cancelled, INR Cancelled 01/19/22 06:24: PT Cancelled, INR Cancelled 01/19/22 06:43: PT 14.5, INR 1.2 Micro: Microbiology 01/06/22 10:41 Swab (Method) Nasal Screen MRSA/MSSA - Final Radiography Diagnostic Testing: Radiology Impression Hip X-Ray 01/19/22 08:25 IMPRESSION: Status post right total hip replacement. There is good alignment. Postoperative soft tissue changes. Electronically Signed: Antoni Lawson MD at 10:02 EDT , Physical Exam Narrative Physical exam: General: Alert, oriented x3, Cooperative, no apparent distress, on 2 L of oxygen HEENT: Atraumatic Oral: Moist Mucosa Neck: Supple Lungs: Clear to auscultation Cardiovascular: HS I+II, regular, no murmurs Abdomen: Bowel Sounds Present, Soft, Non Tender Extremities: No edema, dressing over the right hip as well as: Skin: No rashes, No breakdown Neurological: Grossly intact Psych/Mental Status: Appropriate Assessment & Plan Assessment/Plan (1) Essential hypertension: (2) History of pulmonary embolus (PE): (3) Cryoglobulinemic vasculitis: PLAN: 1. POD #0 status post right minimally invasive right hip arthroplasty right hip arthroplasty Continue once Tylenol, as needed oxycodone, Toradol prn, morphine IV prn PT and OT to evaluate and treat 2. Hypertension, controlled, continue on amlodipine, metoprolol 3. 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 History of cryoglobulinemia, immune complex glomerulonephritis, history of pulmonary embolus Patient stated that he no longer has the autoimmune condition and has not been on treatment in a while Continue on coumadin, repeat INR in am 5. Hypothyroidism: Continue Synthroid 6. DVT PPx - on coumadin Charges/Coding Visit Charges Office Visits / Consults: 61389 OV L5 Est
[2022-01-19] MEDS: CLARIFY ORDER NOTE (14:49)
[2022-01-19] MEDS: Cefazolin 1 GM/50 ML BAG IV ×2 (15:24→22:05)
[2022-01-19] MEDS: Ensure Surgery 237 ML LIQUID PO (17:46)
[2022-01-19] MEDS: Metoprolol Tartrate 25 MG Tablet 12.5 MG PO (22:03)
[2022-01-19] MEDS: Senna/Docusate Sodium 1 Tablet 2 TABLET PO (22:04)
[2022-01-19] MEDS: 0.9% Saline Lock 10 ML Syringe IV (22:04)
[2022-01-20] VITALS (11 sets, daily range): BP systolic 111–135; BP diastolic 73–87; PULSE 63–80; RESP 14–18; TEMP 36.4–37.2; O2SAT 95–100
[2022-01-20] MEDS: Acetaminophen 500 MG Tablet 1000 MG PO ×3 (05:19→21:36)
[2022-01-20] MEDS: Levothyroxine 50 MCG Tablet PO (05:19)
[2022-01-20 06:03] LABS: Hematocrit 37.1 % (40-54); Hemoglobin 12.3 g/dL (13.0-16.5); Mean Corp Hgb Conc 33.2 g/dL (32-36); Mean Corpuscular Hgb 29.1 pg (27.0-32.0); Mean Corpuscular Volume 87.7 fL (80-94); Mean Platelet Vol. 9.2 fl (6.2-12.0); Platelet Count 134 K/mm3 (150-450); RBC Distribution Width CV 14.1 % (11.6-14.6); Red Blood Count 4.23 M/mm3 (4.6-6.2); White Blood Count 13.6 K/mm3 (4.4-11.0)
[2022-01-20 06:13] LABS: International Normalized Ratio 1.2; Prothrombin Time (Protime)PT. 15.1 SECONDS (11.7-14.9)
[2022-01-20 06:37] LABS: Anion Gap 4 (5-15); BUN 19 mg/dL (7-18); BUN/Creat Ratio 20.8 RATIO (10-20); Calcium,Total 8.3 mg/dL (8.5-10.1); Chloride 107 mmol/L (98-107); Creatinine, Serum 0.92 mg/dL (0.70-1.30); EST Glomerular Filtration Rate 87 mL/min (>60); Est Glom Filt Rate - Afr Amer 106 mL/min (>60); Estimated Creatinine Clearance 79.35 ml/min; Glucose 122 mg/dL (74-106); Potassium 4.2 mmol/L (3.5-5.1); Sodium Level 140 mmol/L (136-145)
[2022-01-20] MEDS: Senna/Docusate Sodium 1 Tablet 2 TABLET PO ×2 (08:35→21:36)
[2022-01-20] MEDS: oxyCODONE 5 MG Tablet PO ×2 (08:35→21:39)
[2022-01-20] MEDS: Metoprolol Tartrate 25 MG Tablet 12.5 MG PO ×2 (08:36→21:36)
[2022-01-20] MEDS: Famotidine 20 MG Tablet 40 MG PO (08:36)
[2022-01-20] MEDS: Multivitamins,Therapeutic Tablet 1 TABLET PO (08:36)
[2022-01-20] MEDS: amLODIPine 5 MG Tablet PO (08:36)
[2022-01-20] MEDS: Cholecalciferol (VIT D3) 25 MCG TABLET (1,000 UNITS) PO (08:37)
[2022-01-20] MEDS: Aspirin 81 MG TAB.CHEW PO (08:37)
[2022-01-20] MEDS: prednisoLONE eye drops (5 mL) 1 DROP OPTH.BTL 2 DRP LEFT EYE (08:37)
[2022-01-20] MEDS: Ensure Surgery 237 ML LIQUID PO ×2 (08:38→17:36)
--- NOTE | 2022-01-20 09:13 | PCM.PN.HOSP ---
Subjective Subjective Follow-up on post-op management: Patient was seen and examined. Patient complains of slight pain in the right anterior hip. Overnight, he was found to be significantly hypoxic while sleeping. Oxygen saturation while sleeping was 60%. It improved with Ventimask. Patient however is not on oxygen on room air on exertion. Objective Data Objective Data Vital Signs: Vital Signs Temp Pulse Resp BP Pulse Ox 98.9 F 80 18 122/75 H 95 01/20/22 08:34 01/20/22 08:36 01/20/22 08:34 01/20/22 08:34 01/20/22 08:34 Oxygen Flow Rate (L/min) 12 Oxygen Delivery Method Room Air Weight: 105.5 kg Body Mass Index (BMI) 33.3 Intake & Output: Intake and Output for Last 24 Hours 01/18/22 01/19/22 01/20/22 23:59 23:59 23:59 Intake Total 6012.00 / 6012.00 900 / 900 Output Total 800 / 800 1000 / 1000 Balance 5212.00 / 5212.00 -100 / -100 Lab / Micro Data Result Diagrams: 01/20/22 05:30 01/20/22 05:30 Labs: Laboratory Results - last 24 hr 01/20/22 05:30: WBC 13.6 H, RBC 4.23 L, Hgb 12.3 L, Hct 37.1 L, MCV 87.7, MCH 29.1, MCHC 33.2, RDW Std Deviation 45.0 H, RDW Coeff of Enriqueta 14.1, Plt Count 134 L, MPV 9.2 01/20/22 05:30: Sodium 140, Potassium 4.2, Chloride 107, Carbon Dioxide 29.0, Anion Gap 4 L, BUN 19 H, Creatinine 0.92, Estim Creat Clear Calc 79.35, Est GFR (MDRD) Af Amer 106, Est GFR (MDRD) Non-Af 87, BUN/Creatinine Ratio 20.8 H, Glucose 122 H, Calcium 8.3 L 01/20/22 05:30: PT 15.1 H, INR 1.2 Micro: Microbiology 01/06/22 10:41 Swab (Method) Nasal Screen MRSA/MSSA - Final Radiography Diagnostic Testing: Radiology Impression Hip X-Ray 01/19/22 08:25 IMPRESSION: Status post right total hip replacement. There is good alignment. Postoperative soft tissue changes. Electronically Signed: Antoni Lawson MD at 10:02 EDT , Hip/Pelvis X-Ray 01/19/22 08:25 IMPRESSION: Placement of total hip arthroplasty in anatomic alignment without complications. Electronically Signed: Edy Madsen MD at 10:02 EDT , Physical Exam Narrative Physical exam: General: Alert, oriented x3, Cooperative, no apparent distress HEENT: Atraumatic Oral: Moist Mucosa Neck: Supple Lungs: Clear to auscultation Cardiovascular: HS I+II, regular, no murmurs Abdomen: Bowel Sounds Present, Soft, Non Tender Extremities: No edema, dressing over the right hip, tenderness on palpation. Skin: No rashes, No breakdown Neurological: Grossly intact Psych/Mental Status: Appropriate Assessment & Plan Assessment/Plan (1) Essential hypertension: (2) History of pulmonary embolus (PE): (3) Cryoglobulinemic vasculitis: PLAN: 1. POD #1 status post right minimally invasive right hip arthroplasty right hip arthroplasty Continue once Tylenol, as needed oxycodone, Toradol prn, morphine IV prn PT and OT to evaluate and treat 2. Hypoxia, significant with sleep, likely secondary to sleep apnea Patient has not been diagnosed yet with sleep apnea Patient will be kept overnight for overnight pulse oximetry to determine how much oxygen he needs at night 3. Hypertension, controlled, continue on amlodipine, metoprolol 4. 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 History of cryoglobulinemia, immune complex glomerulonephritis, history of pulmonary embolus Patient stated that he no longer has the autoimmune condition and has not been on treatment in a while Continue on coumadin, repeat INR in am 6. Hypothyroidism: Continue Synthroid 7. DVT PPx - on coumadin Charges/Coding Visit Charges Inpatient E&M: 87151 Subs Hosp L2
--- NOTE | 2022-01-20 10:23 | PN.ORTHO_ITS ---
Subjective Subjective The patient was sitting in bedside chair upon examination after physical therapy. Patient denies any chest pain, shortness of breath, dizziness, lightheadedness, nausea or vomiting, or calf pain. Pain is controlled on medications. Patient states his right hip is doing well this morning. He has soreness in the thigh. He denies any chest pain or shortness of breath. When looking at patient's vitals there was no documented evidence of hypoxia. However talking with social media developer and nursing patient had episode overnight where he dropped into the 60s-70s with pulse ox saturation. Patient states he has been told over the years he needs sleep study test for sleep apnea. He has never sought any treatment. Patient on room air was at 95% O2 saturation. Denies any shortness of breath. Patient tolerated physical therapy very well. Objective Data Objective Data Vital Signs: Vital Signs Temp Pulse Resp BP Pulse Ox 98.9 F 80 18 122/75 H 95 01/20/22 08:34 01/20/22 08:36 01/20/22 08:34 01/20/22 08:34 01/20/22 08:34 Oxygen Flow Rate (L/min) 12 Oxygen Delivery Method Room Air Weight: 105.5 kg Body Mass Index (BMI) 33.3 Intake & Output: Intake and Output for Last 24 Hours 01/18/22 01/19/22 01/20/22 23:59 23:59 23:59 Intake Total 6012.00 / 6012.00 900 / 900 Output Total 800 / 800 1000 / 1000 Balance 5212.00 / 5212.00 -100 / -100 Lab / Micro Data Result Diagrams: 01/20/22 05:30 01/20/22 05:30 Labs: Laboratory Results - last 24 hr 01/20/22 05:30: WBC 13.6 H, RBC 4.23 L, Hgb 12.3 L, Hct 37.1 L, MCV 87.7, MCH 29.1, MCHC 33.2, RDW Std Deviation 45.0 H, RDW Coeff of Enriqueta 14.1, Plt Count 134 L, MPV 9.2 01/20/22 05:30: Sodium 140, Potassium 4.2, Chloride 107, Carbon Dioxide 29.0, Anion Gap 4 L, BUN 19 H, Creatinine 0.92, Estim Creat Clear Calc 79.35, Est GFR (MDRD) Af Amer 106, Est GFR (MDRD) Non-Af 87, BUN/Creatinine Ratio 20.8 H, Glucose 122 H, Calcium 8.3 L 01/20/22 05:30: PT 15.1 H, INR 1.2 Micro: Microbiology 01/06/22 10:41 Swab (Method) Nasal Screen MRSA/MSSA - Final Radiography Diagnostic Testing: Radiology Impression Hip/Pelvis X-Ray 01/19/22 08:25 IMPRESSION: Placement of total hip arthroplasty in anatomic alignment without complications. Electronically Signed: Edy Madsen MD at 10:02 EDT , Physical Exam Narrative Vital signs stable and afebrile. Patient's last vitals he was 95% O2 saturation on room air. According to nursing patient did drop into the 60s-70s O2 saturation overnight. Patient is able to plantarflex and dorsiflex actively. Sensation is intact to light touch to saphenous, sural, superficial and deep peroneal, and tibial distribution. Dressing is clean dry and intact. Negative Homans bilaterally, negative signs and symptoms of DVT. Const alert, oriented x3 and no apparent distress Assessment & Plan Assessment/Plan (1) S/P total right hip arthroplasty: (2) Hypoxia: PLAN: 1. S/P direct anterior right total hip arthroplasty POD #1 2. Continue Pain Medications: Tylenol and oxycodone 3. DVT Prophylaxis: Patient has resumed his warfarin. He will contact primary care physician Dr. Arce with regards to repeat INR in 1 week for continued follow-up until he is therapeutic. He voiced understanding and states he will contact his primary care himself. 4. PT/OT: Weightbearing as tolerated with walker 5. H & H: 12.3/37.1, asymptomatic. Postoperative anemia secondary to acute blood loss from surgery without any intra operative complications. 6. Reactive leukocytosis: Currently 13.6, afebrile. Patient does have underlying type 2 diabetes mellitus. Most likely related to stress and surgery and reactive. No signs of clinical infection. 7. Hypoxia overnight: Suspected chronic ongoing sleep apnea in which patient has never been appropriately treated. Patient reports that he has been told for over the years he should be tested for this. He just has never gone to be seen. Case was discussed with case management and they are looking in to assisting him for an appointment for sleep study. They are also looking into the possibility of oxygen. This will need to be addressed outpatient work-up. Suggest he follow with his primary care physician. Case management also discussed that even if he has diagnosed there is a 8-week wait on equipment for this. 8. Continue postoperative medical management per medicine: Case was discussed and appropriate for discharge. 9. Encouraged Incentive Spirometry 10. Drainage from wound: Currently stable with small output over the distal incision. As long as there is no further drainage today we will continue with current Mepilex dressing and possible discharge 11. Disposition: Orthopedically patient is doing well and stable. Plan will be for discharge home today as long as there is no further drainage from the incision. Case management is also looking into the possibility of sleep study as well as overnight oxygen. I discussed case with medicine and they were also on board and aware of situation. If oxygen is required we will have medicine help with determining how much required. Patient does have outpatient physical therapy established as well as 2-week postoperative visit. He will follow-up per postop instructions. Prescriptions will be E scribed to [facility]. He was also instructed to follow-up with his PCP and he is going to contact for follow-up and INR check. I have reviewed the [place] Automated Rx Reporting System (OARRS) report for this patient for refill pattern and other prescriber involvement as part of the appropriate surveillance for the provision of acute and chronic controlled medications. The report was requested and reviewed on the date of this entry and was considered in the prescribing process.
--- NOTE | 2022-01-20 10:37 | DCINST_ITS ---
Discharge Instructions Diet Discharge Diet: No restrictions Activity Discharge Activity: May Not Drive (while taking narcotic pain medications.) and May Shower (Do not submerge underwater for 6 weeks postoperatively) May shower in (days): 1 (only if incision is dry and without drainage. Do NOT soak/submerge in tub/pool/gomes/stream/hot tub.)) Ice area for (Minutes): 20 (Every 1-2 hours while awake[address] place barrier between ice and skin.) Weight Bearing Status: Weight bearing as tolerated Keep extremity elevated above heart level: Operative Extremity Dressing / Incision Call your doctor if your incision/area has: Continuous Slow Oozing, Sudden Increased Bleeding, Increased Pain/ Swelling, Increased Redness and Foul Sme lling Discharge Call your doctor if you observe: Fever of 101 or Higher, Shortness of breath, Chest pain, Calf discomfort and Uncontrolled pain Remove Dressing in: 4 days (Okay to remove dressing on January 24, 2022) Additional Dressing/Incision Instructions:: Follow [facility] Post-op Instructions. Once postoperative dressing has been removed, only use gentle soap and water over the incision. Do not use any ointments, Neosporin, salves, alcohol pads over the incision for 6 weeks postoperatively. Do not submerge underwater for 6 weeks postoperatively. Continue with REI hose/elastic stockings for 2 weeks postoperatively. May remove at nighttime but needs to be placed back on the leg during the day. Do NOT use alcohol with narcotic pain medication. Do NOT make important decisions while taking narcotic medication. If you have problems with taking your medication (rash, itching, nausea, etc.) call the office at once. Follow Up Care Test Results: Test results from this visit will be discussed in further detail at your follow-up appointment, if applicable. Discharge Plan Admission Admit Date/Time: 01/19/22 07:13 Attending Provider: Preston Helm Primary Care Provider: Wade Arce Chi Consulting Providers: Alanis Castandea Discharge Orders/Prescriptions Prescriptions: New acetaminophen 500 mg Tablet 1,000 mg PO Q8 Qty: 0 RF: 0 oxycodone 5 mg Tablet 5 - 10 mg PO Q4H PRN PRN (Reason: Pain Score 4-10) 4 Days Qty: 42 RF: 0 sennosides-docusate sodium [Stool Softener-Stimulant Laxat] 8.6-50 mg Tablet 2 tab PO BID Qty: 0 RF: 0 Continued warfarin 2 mg tablet 4.5 mg PO QODAY RF: 0 metoprolol tartrate 25 mg tablet 12.5 mg PO BID RF: 0 levothyroxine 50 mcg tablet 50 mcg PO DAILY RF: 0 B-complex with vitamin C Tablet 1 tab PO DAILY RF: 0 famotidine 40 MG tablet 40 mg PO DAILY RF: 0 ergocalciferol (vitamin D2) 50,000 UNIT capsule 1,000 unit PO DAILY RF: 0 aspirin 81 MG tablet,chewable 81 mg PO DAILY@0800 RF: 0 fluticasone propionate 1 SPRAY spray,suspension 1 spray NASAL BID PRN (Reason: Allergies) RF: 0 multivitamin 1 EACH tablet 1 ea PO DAILY RF: 0 amlodipine 5 MG tablet 5 mg PO DAILY RF: 0 prednisolone acetate (PF) 5 ML drops,suspension 2 drp LEFT EYE DAILY RF: 0 warfarin 5 mg Tablet 5 mg PO QODAY RF: 0 Discontinued acetaminophen 500 MG tablet 500 mg PO PRN PRN (Reason: Pain) RF: 0 Referrals / Follow Up: Physical,Therapy [Other] - 01/24/22 10:00 am Wade Arce Chi, MD [Primary Care Provider] - Oziel Hinojosa PA-C [PHYSICIAN ELECTRICAL AND ELECTRONIC ASSEMBLER] - 02/03/22 1:45 pm Disposition Disposition (needs filled in before D/C Order can be placed): Home, Self Care
--- NOTE | 2022-01-20 13:34 | CPS ---
This RT talked to Benji LUTHER CM about overnight pulse ox trend. RN CM talked to about concerns about the patient's SpO2 dropping into the 60's through the night. The RN CM had concerns because even if patient can get directly discharged to , they won't have a machine for 8 weeks. The RN CM would like an overnight pulse ox trend on oxygen titrated to the amount he would need to go home. Benji LUTHER CM needs clear O2 amounts for the oxygen on the pulse ox trend to go home on home O2. The home oxygen can go up to 10LPM if needed. Trenton SANDOVAL
--- NOTE | 2022-01-20 14:00 | CASEMGMT ---
RN GIOVANNY DIRECTOR HOME CM to room to meet with patient for initial transition planning/care coordination assessment. HOMA BALTAZAR introduced self and role at [facility]. Pt voices understanding and consents to assessment at this time. Pt sitting up in recliner chair in room in no distress at this time. Pt is A/O at this time and answers all questions appropriately. Care providers, pharmacy, and demographics verified/updated at this time. PCP: Dr Arce Specialists: Dr Helm--ortho. Dr Cuellar-cardiology. Dr Bonilla-urology Preferred Pharmacy: [facility] Retail Insurance: MMO Prescription Benefit: Yes Living Will/HPOA: Has both LW and HPOA, who is his , Shelby. Pt has completed paperwork in his room. Copies made and placed on paper chart. Original given back to pt. LNOK: , Shelby Living Arrangements: Lives w/ in 2-story home. 2 +3 steps to enter, 16 steps to 2nd level and 3 down to landing. Has bedroom and bathroom on 2nd floor and one down 3 steps from main level. Pt states therapy has worked w/him doing steps and he feels comfortable with them. Pt independent prior to surgery. able to assist as needed once returns home. Transportation: Pt and drive. DME: States has the following DME: RTS, extended tub bench, cane, 2 walkers--one for each floor. Pt does not have home O2. Sleep Study: While sleeping last night, pt desatted into 60's to 70's on RA and venti mask was placed. Pt states, My told me a long time ago I need to have sleep studies done. He states he went for an appt to talk w/someone about a sleep study about 15 yrs ago, but states, It was a bad experience and I did not end up having the testing done. He states he is now willing to have sleep study done. Call placed to Sleep lab and spoke w/Betzaida. There is an appt available Qgiv. Pt made aware and also informed, if he is not able to get up and down to the bathroom on his own, he would need someone to stay w/him overnight @ sleep lab. Pt states he would prefer to wait about a week or so before having sleep study done, as he may be more independent at that time, and may not need someone to stay w/him. Pt made aware the next available appt is 01/31. Pt agreeable to that date and appt scheduled for him. Pt made aware. STOP/BANG forms completed and faxed to Sleep Lab along w/ script for Sleep study from Dr Castaneda. Per Betzaida @ Sleep lab, if pt qualifies for PAP, there is an approx 8 week wait on pt's getting PAP's d/t shortage. O2: Dr Castaneda aware of above and states would like to send pt home on oxygen @ HS, if he qualifies, to use while awaiting sleep study and PAP. Overnight trending pulse ox ordered. CM to follow for any O2 needs @ d/c. Pt states prefers [employer] for O2. HHC/SNF: No hx of SNF. Pt has had HHC in the past after cardiac surgery. Pt denies need for HHC. States plans to have OP therapy @ [facility]. 1st appt is scheduled for 01/24 @ 10 AM. Pt wishes to return home and states has no concerns with going home at time of discharge. BORJA form explained re: Observation status for treatment of right total hip replacement. Explained hospitalization will be paid per insurance policy for Outpatient billing and condition will continue to be evaluated for Inpt necessity. Also let pt know that [facility] sends paper in the billing packet with their phone number if questions arise. Discussed Pharmacy section of BORJA form and self administered medication guideline. Pt verbalizes understanding and does not have further questions. Form signed, copy made and placed in chart, and original given to pt. CM to follow for home oxygen needs and any further discharge planning/needs. Pt voices no further concerns/needs at this time. Advised pt to ask for CM if any further questions/concerns/needs arise. Voices understanding. PLAN: Home w/OP therapy. Pt to have overnight trending pulse ox completed tonight. CM to follow for any O2 needs @ d/c. Trevon BARBOSAN RN CM
--- NOTE | 2022-01-20 20:48 | CPS ---
Overnight trend initiated on 4L to start, will titrate from there.
--- NOTE | 2022-01-21 02:20 | NURSING ---
pt on 4L NC, sats dropped to 83%, sats lupillo within 30 seconds to 99%
--- NOTE | 2022-01-21 02:31 | NURSING ---
pt on 4L, sats dropped into 70s and dropped as low as 66%, pt raised to 6L, sats came up to 97% after 1 min, pt snored loudly and awoke himself at this time.
[2022-01-21 03:41] VITALS: BP 131/89; PULSE 62; RESP 18; TEMP 36.6; O2SAT 97
--- NOTE | 2022-01-21 04:26 | NURSING ---
pt on 6L oxygen, desat into 66-69%. oxygen increased to 8L. back up to 96% after approx 1 min
--- NOTE | 2022-01-21 04:37 | NURSING ---
pt on 8L. desats into 85%. raised to 10L
[2022-01-21] MEDS: oxyCODONE 5 MG Tablet PO (06:21)
[2022-01-21] MEDS: Levothyroxine 50 MCG Tablet PO (06:22)
[2022-01-21] MEDS: Acetaminophen 500 MG Tablet 1000 MG PO ×2 (06:22→13:54)
[2022-01-21 06:44] LABS: International Normalized Ratio 1.2; Prothrombin Time (Protime)PT. 15.1 SECONDS (11.7-14.9)
[2022-01-21 07:27] VITALS: BP 134/92; PULSE 76; RESP 18; TEMP 36.6; O2SAT 96
[2022-01-21] MEDS: Multivitamins,Therapeutic Tablet 1 TABLET PO (07:39)
[2022-01-21] MEDS: Ensure Surgery 237 ML LIQUID PO ×2 (07:39→12:18)
[2022-01-21] MEDS: Aspirin 81 MG TAB.CHEW PO (07:39)
[2022-01-21 07:58] VITALS: PULSE 62; O2SAT 94
--- NOTE | 2022-01-21 08:02 | PCM.PN.HOSP ---
Subjective Subjective Follow-up on post-op management/nocturnal hypoxia: Patient was seen and examined. He underwent an overnight oximetry that showed that he desaturated significantly overnight. Pulmonology has been consulted and recommends 4 L of oxygen to be used at night pending sleep study and CPAP. Patient however feels improved. He is not on oxygen this morning. He denies any new complaints. Objective Data Objective Data Vital Signs: Vital Signs Temp Pulse Resp BP Pulse Ox 97.9 F 62 18 134/92 H 94 01/21/22 07:27 01/21/22 07:58 01/21/22 07:27 01/21/22 07:27 01/21/22 07:58 Oxygen Flow Rate (L/min) 2 Oxygen Delivery Method Room Air Weight: 105.5 kg Body Mass Index (BMI) 33.3 Intake & Output: Intake and Output for Last 24 Hours 01/19/22 01/20/22 01/21/22 23:59 23:59 23:59 Intake Total 6012.00 / 6012.00 1600 / 1600 Output Total 800 / 800 2150 / 2150 Balance 5212.00 / 5212.00 -550 / -550 Lab / Micro Data Result Diagrams: 01/20/22 05:30 01/20/22 05:30 Labs: Laboratory Results - last 24 hr 01/21/22 05:50: PT 15.1 H, INR 1.2 Micro: Microbiology 01/06/22 10:41 Swab (Method) Nasal Screen MRSA/MSSA - Final Physical Exam Narrative Physical exam: General: Alert, oriented x3, Cooperative, no apparent distress HEENT: Atraumatic Oral: Moist Mucosa Neck: Supple Lungs: Clear to auscultation Cardiovascular: HS I+II, regular, no murmurs Abdomen: Bowel Sounds Present, Soft, Non Tender Extremities: No edema, dressing over the right hip, tenderness on palpation. Skin: No rashes, No breakdown Neurological: Grossly intact Psych/Mental Status: Appropriate Assessment & Plan Assessment/Plan (1) Essential hypertension: (2) History of pulmonary embolus (PE): (3) Cryoglobulinemic vasculitis: PLAN: 1. POD #2 status post right minimally invasive right hip arthroplasty right hip arthroplasty Continue scheduled Tylenol, as needed oxycodone, Toradol prn, morphine IV prn PT and OT to evaluate and treat 2. Hypoxia, significant with sleep, likely secondary to sleep apnea STOP-BANG score of 7 Patient has not been diagnosed yet with sleep apnea; pulmonology consult Patient qualifies for nocturnal oxygen at 4 L 3. Hypertension, controlled, continue on amlodipine, metoprolol 4. 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 History of cryoglobulinemia, immune complex glomerulonephritis, history of pulmonary embolus Patient stated that he no longer has the autoimmune condition and has not been on treatment in a while Continue on coumadin 6. Hypothyroidism: Continue Synthroid 7. DVT PPx - on coumadin Charges/Coding Visit Charges Inpatient E&M: 86201 Subs Hosp L2
--- NOTE | 2022-01-21 08:38 | CON.PCM.CC_ITS ---
Assessment & Plan Assessment/Plan (1) Hypoxia: (2) Sleep-disordered breathing: PLAN: RECOMMENDATIONS: 1. Arrange for 4 L/min with sleep of supplemental oxygen pending sleep work- up 2. Obtain PSG with CPAP as indicated 3. Obtain outpatient PFT for quantification clarification of lung function 4. Walking oximetry as an outpatient IMPRESSIONS: 1. Nocturnal hypoxia High clinical suspicion for untreated obstructive sleep apnea. Patient has not received significant opiates to think this could be related to hypoventilation. Patient does not have a high risk pattern for underlying lung disease. However, given hypoxia, a work-up including complete pulmonary function test and walking oximetry can be completed as an outpatient. In the interim, patient should be placed on 4 L nasal cannula with any sleep. This may not be necessary once noninvasive therapy can be arranged. Patient does appear to be relatively receptive. Patient is aware that there is a current shortage of noninvasive machines meaning that he may require supplemental oxygen for a month or 2 after his sleep study. Patient also understands the role of weight loss and the overall disease plan of care. 2. Avascular necrosis of the hip status post replacement Patient appears to be doing well from an orthopedic standpoint. Defer discharge to orthopedics. Okay to discharge from pulmonary perspective once supplemental oxygen has been arranged. 3. Chronic diastolic congestive heart failure/anemia/history of PE/hypertension/obesity Complicates care, management, recovery and prognosis. Okay to continue with baseline medications from my perspective. Patient does not appear to be significantly volume overloaded to contribute to problem #1. HPI Consult Data Date of Consult: 01/21/22 HPI Narrative HPI Narrative: SOWYMA PAREDES is a 66 M, with past medical history listed below, who presented to [facility] on on 01/19/2022 for an elective right hip arthroplasty. Patient reportedly had developed hip pain in August 2021 and had seen his primary care physician that subsequently ordered an MRI. 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 Patient had tried multiple other interventions, but ultimately it was decided that surgery would be needed as MRI showed avascular necrosis of the femoral head. Patient had similar findings in the left, but no symptoms. Patient underwent operative procedure with no reported complications. The hospitalist was consulted for medical management. Overnight, patient was noted to have significant desaturations into the 60s, so discharge was delayed. Patient had a nocturnal oximetry overnight and a consult this morning for concerns for significant hypoxia related to sleep disordered breathing. Patient states that he is recovered well from surgery. Patient does not report any significant issues with pain. Patient does admit that he has been told for years by his that he probably has it. Patient does report that he is tired during the day and frequently takes a nap, especially after dinner. Patient has been told that he has witnessed apneas and has snored for years. Patient denies any pulmonary pathology. Patient has never been a smoker, denies any urgent care or ER visits for shortness of breath or any occupational exposures. 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 Patient is not reporting any cough, fever, chills, nausea or vomiting. Patient does not have significant allergy symptoms. Patient has not required any supplemental oxygen previously. Patient does have a history of PEs in the past. Review of systems otherwise negative from a constitutional, HEENT, respiratory, cardiovascular, GI, genitourinary, musculoskeletal, skin, neurologic, psychiatric and hematologic system unless stated above. [facility] Medical History Anemia Arthritis Breast mass, right Cardiology follow-up encounter Compound heterozygous MTHFR mutation [id number] Cryoglobulinemia Cryoglobulinemic vasculitis DDD (degenerative disc disease), lumbar Easy bruising Essential hypertension Excessive bleeding Gastritis History of echocardiogram History of irregular heartbeat History of pain when walking History of pulmonary embolus (PE) (11/02/17) Hydronephrosis Hypertension Hypoalbuminemia Hypothyroid Infective endocarditis of mitral valve Leg cramps Lung nodule MGUS (monoclonal gammopathy of unknown significance) Non-rheumatic tricuspid valve insufficiency Non-smoker Nonrheumatic mitral (valve) insufficiency Nonrheumatic mitral (valve) prolapse Orthostatic hypotension Petechiae S/P transesophageal echocardiogram ([facility]) Segmental and somatic dysfunction of lumbar region Segmental and somatic dysfunction of pelvic region Segmental and somatic dysfunction of thoracic region Thyroid disease TIA (transient ischemic attack) Umbilical hernia without mention of obstruction or gangrene Wears dentures Wears glasses Weight loss, unintentional Home Medications ergocalciferol (vitamin D2) 1,000 unit PO DAILY 06/05/18 [History Last Taken 01/19/22] famotidine 40 mg PO DAILY 08/28/18 [History Last Taken 01/19/22] aspirin 81 mg PO DAILY@0800 12/13/18 [History Last Taken 01/17/22] fluticasone propionate 1 spray NASAL BID PRN 12/13/18 [History Last Taken Unknown] amlodipine 5 mg PO DAILY 06/15/20 [History Last Taken 01/19/22] multivitamin 1 ea PO DAILY 06/15/20 [History Last Taken Unknown] prednisolone acetate (PF) 2 drp LEFT EYE DAILY 06/15/20 [History Last Taken 01/18/22] warfarin 2 mg tablet 4.5 mg PO QODAY tab 08/18/21 [History Last Taken 01/13/22] B-complex with vitamin C 1 tab PO DAILY 08/27/21 [History Last Taken Unknown] levothyroxine 50 mcg tablet 50 mcg PO DAILY tab 08/27/21 [History Last Taken 01/18/22] metoprolol tartrate 25 mg tablet 12.5 mg PO BID tab 08/27/21 [History Last Taken 01/19/22] warfarin 5 mg PO QODAY 01/19/22 [History Last Taken Unknown] acetaminophen 1,000 mg PO Q8 #0 tab 01/20/22 [Rx Last Taken Unknown] oxycodone 5 - 10 mg PO Q4H PRN PRN 4 Days #42 tab 01/20/22 [Rx Last Taken Unk nown] sennosides-docusate sodium [Stool Softener-Stimulant Laxat] 2 tab PO BID #0 tab 01/20/22 [Rx Last Taken Unknown] Allergy/AdvReac Type Severity Reaction Status Date / Time Wrktaza-TCR-SmM Reductase AdvReac Severe Muscle Verified 01/19/22 06:27 Inhibitor Weakness [Apxbeqc-Mbw-Dkw Reductase Inhibitor] Family History Father Prostate cancer Heart disease Cancer Daughter Asthma Mother Aorta aneurysm Surgical History H/O mitral valve replacement (10/23/18) History of cataract surgery History of facial surgery History of right and left heart catheterization (10/19/18) History of right inguinal hernia repair History of tricuspid valve repair (10/23/18) History of umbilical hernia repair Hx of appendectomy Hx of eye surgery Social History Smoking Status: Never smoker alcohol intake: never substance use type: does not use caffeine: Yes what type of physical activity do you participate in: none frequency: does not exercise ROS ROS Narrative See HPI Physical Exam Const alert, oriented x3 and no apparent distress General Appearance: cooperative and well developed Nutritional Appearance: obese HEENT HEENT Narrative: Edentulous. Mallampati 4. Eyes PERRL and EOMs intact bilaterally Neck full ROM Neck Narrative: Neck greater than 17 inches Resp normal respiratory effort and no use of accessory muscles Effort and Inspection: able to speak in complete sentences Auscultation: clear to auscultation bilaterally; Negative for rales, rhonchi or wheezes Cardio regular rate, regular rhythm, S1 normal heart sound, S2 normal heart sound, no murmurs, no rub and no gallops GI normal to inspection, nondistended, normoactive bowel sounds Extremity no clubbing, cyanosis or edema Skin no rashes or lesions noted Skin Narrative: Incision is clean, dry and intact Neuro oriented x3, CN's II-XII intact bilaterally and moves all extremities Psych cooperative Lab / Micro Data Attestation: I reviewed the patient's lab results. Lab results narrative: Patient also had an echocardiogram (09/01/2021): EF 53% with mild LVH, stage I diastolic dysfunction and mild global hypokinesis of the left ventricle. Pulmonary artery pressures of 35 mmHg. Result Diagrams: 01/20/22 05:30 01/20/22 05:30 Labs: Laboratory Results - last 24 hr 01/21/22 05:50: PT 15.1 H, INR 1.2 Nocturnal oximetry (01/21/2022) personally reviewed and scanned into the electronic medical record. Patient with a total of 10 hours 13 minutes of testing time found to have a desaturation less than 88% for greater than 35 minutes. Patient's low saturation was 58% on room air. Pattern review showed a sawtooth predominance. Charges/Coding Visit Charges Inpatient E&M: 51884 Init Hosp L2
[2022-01-21 10:31] VITALS: PULSE 63
[2022-01-21] MEDS: Metoprolol Tartrate 25 MG Tablet 12.5 MG PO (10:31)
[2022-01-21] MEDS: Cholecalciferol (VIT D3) 25 MCG TABLET (1,000 UNITS) PO (10:32)
[2022-01-21] MEDS: prednisoLONE eye drops (5 mL) 1 DROP OPTH.BTL 2 DRP LEFT EYE (10:32)
[2022-01-21] MEDS: amLODIPine 5 MG Tablet PO (10:32)
[2022-01-21] MEDS: Famotidine 20 MG Tablet 40 MG PO (10:32)
[2022-01-21] MEDS: Senna/Docusate Sodium 1 Tablet 2 TABLET PO (10:32)
--- NOTE | 2022-01-21 12:57 | PN.ORTHO_ITS ---
Subjective Subjective The patient was sitting in bedside chair upon examination. Patient denies any chest pain, shortness of breath, dizziness, lightheadedness, nausea or vomiting, or calf pain. Pain is controlled on medications. No adverse overnight events. Patient did require an additional stay due to findings of hypoxia at nighttime. Patient stayed an additional night in which nocturnal oximetry was performed on 01/21/2022. Patient had pulmonology consult with Dr. Isaac. Patient is currently going to be placed on 4 L of oxygen at nighttime. Case management has been involved and setting up home oxygen. A sleep test is also being scheduled on January 31, 2022. Patient states his right hip is doing well. He has tolerate d physical therapy. Pain is controlled on medications. Objective Data Objective Data Vital Signs: Vital Signs Temp Pulse Resp BP Pulse Ox 97.9 F 63 18 134/92 H 94 01/21/22 07:27 01/21/22 10:31 01/21/22 07:27 01/21/22 07:27 01/21/22 07:58 Oxygen Flow Rate (L/min) 2 Oxygen Delivery Method Room Air Weight: 105.5 kg Body Mass Index (BMI) 33.3 Intake & Output: Intake and Output for Last 24 Hours 01/19/22 01/20/22 01/21/22 23:59 23:59 23:59 Intake Total 6012.00 / 6012.00 1600 / 1600 480 / 480 Output Total 800 / 800 2150 / 2150 200 / 200 Balance 5212.00 / 5212.00 -550 / -550 280 / 280 Lab / Micro Data Result Diagrams: 01/20/22 05:30 01/20/22 05:30 Labs: Laboratory Results - last 24 hr 01/21/22 05:50: PT 15.1 H, INR 1.2 Micro: Microbiology 01/06/22 10:41 Swab (Method) Nasal Screen MRSA/MSSA - Final Physical Exam Narrative Vital signs stable and afebrile. SCDs and REI hose are placed bilaterally Patient is able to plantarflex and dorsiflex actively. Sensation is intact to light touch to saphenous, sural, superficial and deep peroneal, and tibial distribution. Dressing has stable quarter size drainage over the distal one third. This has not expanded beyond outline. He does have some ecchymosis throughout the right surgical hip. Right hip is soft and supple Negative Homans bilaterally, negative signs and symptoms of DVT. Const alert, oriented x3 and no apparent distress Assessment & Plan Assessment/Plan (1) S/P total right hip arthroplasty: (2) Hypoxia: PLAN: 1. S/P direct anterior right total hip arthroplasty POD #2 2. Continue Pain Medications: Tylenol and oxycodone 3. DVT Prophylaxis: Patient has resumed his warfarin. He will contact primary care physician Dr. Arce with regards to repeat INR in 1 week for continued follow-up until he is therapeutic. He voiced understanding and states he will contact his primary care himself. 4. PT/OT: Weightbearing as tolerated with walker 5. Hypoxia: Pulmonology was consulted. Patient had nocturnal oximetry in which he had low saturation at 58% on room air. They are suggesting that patient go home with 4 L oxygen at nighttime. Case management is currently involved with setting up home oxygen. He is also been scheduled for sleep test on January 31, 2022. He will follow with manager decision support postoperatively as an outpatient. 6. Continue postoperative medical management per medicine: Case was discussed a nd appropriate for discharge today. 7. Encouraged Incentive Spirometry 8. Drainage from wound: Stable, will continue with current Mepilex dressing 9. Disposition: Orthopedically stable, plan will be for discharge home today. Patient will also follow-up with his primary care physician for INR testing for his Coumadin. Prescriptions were already E scribed to [facility] yesterday. He has those medications. Case management is currently involved with setting up home oxygen. He will use 4 L at nighttime. He will follow-up with Dr. Isaac as an outpatient work-up. Patient will follow-up per our postop instructions. He will contact her office on discharge with any complications with regards to his hip. I have reviewed the [place] Automated Rx Reporting System (OARRS) report for this patient for refill pattern and other prescriber involvement as part of the appropriate surveillance for the provision of acute and chronic controlled medications. The report was requested and reviewed on the date of this entry and was considered in the prescribing process.
--- NOTE | 2022-01-21 12:59 | CASEMGMT ---
HOMA BALTAZAR NOTE: Dr Isaac, pulmonology, has been consulted and has seen pt. Per consult note, Dr Isaac has reviewed overnight trending pulse ox results. HOMA BALTAZAR spoke w/Dr Isaac who is aware O2 was increased to 10 L/M during the night d/t desatting. Per Dr Isaac, pt to discharge home on 4 l/m @ HS. Dr Castaneda aware and script obtained for same and faxed to [facility], along w/ overnight trending pulse ox, Dr Isaac consult notes, resp notes/documentation, and pt demographics. [facility] w[facility]Lalo. He is aware pt is discharging today. Pt being discharged home. HOMA BALTAZAR to room to talk w/pt. Pt aware he is to call [facility] once he returns home to have O2 concentrator and supplies delivered to his home today. He was provided w/duuin phone number. Pt voices understanding. Pt aware he is to f/u with Dr Isaac as an OP. Questions answered. Pt denies having any other discharge/home-going needs or further questions. Trevon BAUER RN, CM
[2022-01-21 13:52] VITALS: BP 113/72; PULSE 74; RESP 18; TEMP 36.8; O2SAT 94
== END 2022-01-21 14:38 | disposition home or self-care (01) ==
LOC: SDC 08:29 → MS3 08:29
PROVIDERS: Anesthesiology; Internal Medicine; Admitting Provider Specialist; PCP Family Medicine Geriatric Medicine; Referring Provider Specialist; Visit Provider Specialist
PROC: (CPT 27284; principal; 2022-01-19 07:05)
DX: M87.051 Idiopathic aseptic necrosis of right femur (principal); M87.052 Idiopathic aseptic necrosis of left femur; I11.0 Hypertensive heart disease with heart failure; I50.32 Chronic diastolic (congestive) heart failure; E72.12 Methylenetetrahydrofolate reductase deficiency; D89.1 Cryoglobulinemia; Z68.32 Body mass index [BMI] 32.0-32.9, adult; Z79.82 Long term (current) use of aspirin; E66.9 Obesity, unspecified; M16.11 Unilateral primary osteoarthritis, right hip; E03.9 Hypothyroidism, unspecified; R09.02 Hypoxemia; Z86.711 Personal history of pulmonary embolism; Z79.899 Other long term (current) drug therapy; Z79.01 Long term (current) use of anticoagulants; Z79.890 Hormone replacement therapy; M51.36 Other intervertebral disc degeneration, lumbar region; Z95.2 Presence of prosthetic heart valve; M99.02 Segmental and somatic dysfunction of thoracic region; M99.03 Segmental and somatic dysfunction of lumbar region; M99.05 Segmental and somatic dysfunction of pelvic region
CPT/HCPCS: 27130; 01214; 36415; 73501; 73502; 76000; 80048; 82962; 83735; 84443; 85027; 85610; 87081; 88305; 88311; 94762; 96361; 96365; 96366; 97110; 97116; 97162; 97166; 97530; 97535; 97802; 99218; 99251; C1776; J7120; A4216; G0378; G0463; J2405; J3475

== ENCOUNTER → 2022-01-31 | Outpatient (CLI) | payer OTHER, MEDICARE, SELFPAY | END | disposition home or self-care (01) | LOC: SL 19:59 | PROVIDERS: PCP Family Medicine Geriatric Medicine; Visit Provider Internal Medicine | DX: G47.30 Sleep apnea, unspecified (principal) | CPT/HCPCS: 95811 ==

== ENCOUNTER → 2022-05-26 | Outpatient (CLI) | payer OTHER, MEDICARE, SELFPAY | END | disposition home or self-care (01) | LOC: SL 08:03 | PROVIDERS: PCP Family Medicine Geriatric Medicine; Visit Provider Nurse Practitioner Acute Care | DX: Z46.89 Encounter for fitting and adjustment of other specified devices (principal) ==

== ENCOUNTER → 2022-06-16 | Outpatient (CLI) | payer OTHER, MEDICARE, SELFPAY | END | disposition home or self-care (01) | PROVIDERS: PCP Family Medicine Geriatric Medicine; Referring Provider Nurse Practitioner Acute Care; Visit Provider Nurse Practitioner Acute Care | DX: R09.02 Hypoxemia (principal) ==

== ENCOUNTER → 2022-07-18 | Outpatient (CLI) | payer OTHER, MEDICARE, SELFPAY ==
[2022-07-18 12:25] LABS: Absolute Lymphocyte Count 0.62 X10^3/uL (0.83-4.51); Absolute Neutrophil Count 3.3 X10^3/uL (2.0-7.7); Basophil# 0.06 X10^3/uL; Basophil% 1.3 % (0-1); Eosinophil# 0.06 X10^3/uL; Eosinophils% 1.3 % (0-5); Hematocrit 44.7 % (40-54); Hemoglobin 14.3 g/dL (13.0-16.5); Lymphocyte # 0.62 X10^3/ul (0.83-4.51); Lymphocyte % 13.8 % (19-41); Mean Corpuscular Hgb 29.1 pg (27.0-32.0); Mean Platelet Vol. 9.5 fl (6.2-12.0); Monocyte# 0.47 X10^3/uL; Monocyte% 10.5 % (0-10); NRBC Flagged by Analyzer 0 % (0-5); Neutrophil # 3.26 X10^3/uL (2.7-7.7); Neutrophil % 72.7 % (47-70); Platelet Count 150 K/mm3 (150-450); RBC Distribution Width SD 49.9 fl (35.1-43.9); Red Blood Count 4.91 M/mm3 (4.6-6.2); White Blood Count 4.5 K/mm3 (4.4-11.0)
[2022-07-18 12:40] LABS: Vitamin D,25 Hydroxy 28.1 ng/mL
[2022-07-18 12:58] LABS: AST(SGOT) 22 U/L (15-37); Alanine Aminotransfer ALT/SGPT 37 U/L (16-61); Albumin, Serum 3.5 g/dL (3.2-5.0); Alkaline Phosphatase 78 U/L (45-117); Anion Gap 5 (5-15); BUN 15 mg/dL (7-18); BUN/Creat Ratio 15.6 RATIO (10-20); Chloride 107 mmol/L (98-107); Creatinine, Serum 0.96 mg/dL (0.70-1.30); EST Glomerular Filtration Rate 82 mL/min (>60); Est Glom Filt Rate - Afr Amer 100 mL/min (>60); Globulin 3.6 g/dL (2.2-4.2); Glucose 97 mg/dL (74-106); PSA,Total - Annual Screen 1.48 ng/mL (0.00-4.00); Potassium 4.1 mmol/L (3.5-5.1); Protein, Total 7.1 g/dL (6.4-8.2); Sodium Level 142 mmol/L (136-145); Thyroid Stim Hormone (TSH) 1.83 uIU/mL (0.358-3.74)
== END | disposition home or self-care (01) ==
LOC: POLAB3 10:42
PROVIDERS: PCP Family Medicine Geriatric Medicine; Visit Provider Family Medicine Geriatric Medicine
DX: I10 Essential (primary) hypertension (principal); E55.9 Vitamin D deficiency, unspecified
CPT/HCPCS: 36415; 80053; 82306; 84153; 84443; 85025; G0103

== ENCOUNTER → 2022-08-23 | Outpatient (CLI) | payer OTHER, MEDICARE, SELFPAY ==
--- NOTE | 2022-08-23 16:06 | RAD_ITS ---
STUDY: X-RAY - LEFT HUMERUS REASON FOR EXAM: Male, 67 years old. L ARM PAIN TECHNIQUE: Reason view(s) of the humerus. COMPARISON: None. FINDINGS: Normal visualized humerus. There is no demonstrated fracture or osseous destructive process. Degenerative changes of the left shoulder joint. There is no demonstrated soft tissue abnormality. RAD/Humerus min 2 Views IMPRESSION: Degenerative changes of the left shoulder. No acute fracture or other significant bony pathology Electronically Signed: Villa Andre MD at 16:31 EST ,
--- NOTE | 2022-08-23 16:06 | RAD_ITS ---
STUDY: X-RAY - LEFT SHOULDER REASON FOR EXAM: Male, 67 years old. L SHOULDER PAIN TECHNIQUE: 4 view(s) of the shoulder. COMPARISON: None. FINDINGS: Narrowed glenohumeral articulation. Normal acromioclavicular joint. Normal acromion. Normal humeral head and visualized proximal humerus. The soft tissue structures are unremarkable. Normal visualized pulmonary apex. RAD/Shoulder min 2 Views IMPRESSION: Mild degenerative change. No acute fracture or dislocation Electronically Signed: Villa Andre MD at 19:13 EST ,
--- NOTE | 2022-08-23 16:10 | RAD_ITS ---
STUDY: X-RAY - LEFT KNEE REASON FOR EXAM: Male, 67 years old. L KNEE PAIN TECHNIQUE: 3 view(s) of the knee. COMPARISON: None. FINDINGS: Normal visualized distal femur. Normal visualized proximal tibia and fibula. Normal proximal tibiofibular articulation. Narrowed medial femorotibial compartment. Normal lateral femorotibial compartment. Normal patellofemoral articulation. The soft tissue structures are unremarkable. RAD/Knee 3 Views IMPRESSION: Mild degenerative change. No acute fracture or significant bony pathology Electronically Signed: Villa Andre MD at 19:13 EST Reading Location ID and State: [facility] / [place] , Service support ,
== END | disposition home or self-care (01) ==
LOC: RAD 16:02
PROVIDERS: PCP Family Medicine Geriatric Medicine; Referring Provider Family Medicine Geriatric Medicine; Visit Provider Family Medicine Geriatric Medicine
DX: M79.622 Pain in left upper arm (principal); M25.562 Pain in left knee
CPT/HCPCS: 73030; 73060; 73562

== ENCOUNTER → 2023-01-16 | Outpatient (CLI) | payer OTHER, MEDICARE, SELFPAY ==
[2023-01-16 12:32] LABS: Absolute Lymphocyte Count 0.75 X10^3/uL (0.83-4.51); Absolute Neutrophil Count 3.7 X10^3/uL (2.0-7.7); Basophil# 0.06 X10^3/uL; Basophil% 1.2 % (0-1); Eosinophil# 0.08 X10^3/uL; Eosinophils% 1.5 % (0-5); Hematocrit 44.4 % (40-54); Hemoglobin 14.5 g/dL (13.0-16.5); Lymphocyte # 0.75 X10^3/ul (0.83-4.51); Lymphocyte % 14.4 % (19-41); Mean Corp Hgb Conc 32.7 g/dL (32-36); Mean Corpuscular Hgb 29.2 pg (27.0-32.0); Mean Corpuscular Volume 89.3 fL (80-94); Monocyte# 0.57 X10^3/uL; NRBC Flagged by Analyzer 0 % (0-5); Neutrophil # 3.73 X10^3/uL (2.7-7.7); Neutrophil % 71.7 % (47-70); Platelet Count 163 K/mm3 (150-450); RBC Distribution Width CV 14.3 % (11.6-14.6); RBC Distribution Width SD 46.5 fl (35.1-43.9); Red Blood Count 4.97 M/mm3 (4.6-6.2); White Blood Count 5.2 K/mm3 (4.4-11.0)
[2023-01-16 12:48] LABS: Vitamin D,25 Hydroxy 32.1 ng/mL
[2023-01-16 13:16] LABS: ALB/GLOB Ratio 1.2 RATIO (0.9-2.4); AST(SGOT) 21 U/L (15-37); Alanine Aminotransfer ALT/SGPT 31 U/L (16-61); Albumin, Serum 3.8 g/dL (3.2-5.0); Alkaline Phosphatase 79 U/L (45-117); Anion Gap 4 (5-15); BUN 20 mg/dL (7-18); Calcium,Total 9.3 mg/dL (8.5-10.1); Chloride 109 mmol/L (98-107); Creatinine, Serum 0.95 mg/dL (0.70-1.30); EST Glomerular Filtration Rate 83 mL/min (>60); Est Glom Filt Rate - Afr Amer 101 mL/min (>60); Globulin 3.2 g/dL (2.2-4.2); Glucose 91 mg/dL (74-106); Potassium 4.1 mmol/L (3.5-5.1); Sodium Level 141 mmol/L (136-145); Thyroid Stim Hormone (TSH) 2.19 uIU/mL (0.358-3.74)
== END | disposition home or self-care (01) ==
LOC: POLAB3 10:54
PROVIDERS: PCP Family Medicine Geriatric Medicine; Visit Provider Family Medicine Geriatric Medicine
DX: I10 Essential (primary) hypertension (principal); E55.9 Vitamin D deficiency, unspecified
CPT/HCPCS: 36415; 80053; 82306; 84443; 85025

== ENCOUNTER → 2023-02-10 | Outpatient (CLI) | payer OTHER, MEDICARE, SELFPAY ==
--- NOTE | 2023-02-10 10:35 | RAD_ITS ---
INDICATION: FINGER PAIN, second digit swelling and redness EXAMINATION/TECHNIQUE: X-RAY - LEFT HAND XR Fingers Min 2 Views 4 VIEWS COMPARISON: None FINDINGS: SOFT TISSUES: Diffuse second digit swelling. No gas or radiopaque foreign body. BONES/JOINTS: No acute fracture or subluxation. Normal alignment. Proximal and distal interphalangeal joint space narrowing and small osteophytes. No sclerotic or destructive changes observed. RAD/Finger(s) Min 2 Views IMPRESSION: Soft tissue swelling without finding of bone injury or radiopaque foreign body. Interphalangeal DJD. Electronically Signed: Fransico Swain MD at 18:11 EDT ,
[2023-02-10 13:40] LABS: Anion Gap 6 (5-15); BUN 22 mg/dL (7-18); BUN/Creat Ratio 24.4 RATIO (10-20); CRP 4.07 mg/L (0.0-3.0); Calcium,Total 8.9 mg/dL (8.5-10.1); Chloride 109 mmol/L (98-107); EST Glomerular Filtration Rate 89 mL/min (>60); Est Glom Filt Rate - Afr Amer 107 mL/min (>60); Glucose 111 mg/dL (74-106); Potassium 4.1 mmol/L (3.5-5.1); Sodium Level 142 mmol/L (136-145); Uric Acid 5.9 mg/dL (3.5-7.2)
[2023-02-10 13:42] LABS: Absolute Lymphocyte Count 0.61 X10^3/uL (0.83-4.51); Absolute Neutrophil Count 3.3 X10^3/uL (2.0-7.7); Basophil# 0.04 X10^3/uL; Basophil% 0.9 % (0-1); Eosinophils% 2.1 % (0-5); Hematocrit 44.7 % (40-54); Hemoglobin 14.3 g/dL (13.0-16.5); Lymphocyte # 0.61 X10^3/ul (0.83-4.51); Lymphocyte % 13.1 % (19-41); Mean Corpuscular Hgb 28.9 pg (27.0-32.0); Mean Corpuscular Volume 90.3 fL (80-94); Mean Platelet Vol. 9.9 fl (6.2-12.0); Monocyte# 0.57 X10^3/uL; Monocyte% 12.2 % (0-10); NRBC Flagged by Analyzer 0 % (0-5); Neutrophil # 3.34 X10^3/uL (2.7-7.7); Neutrophil % 71.5 % (47-70); Platelet Count 144 K/mm3 (150-450); RBC Distribution Width CV 14.2 % (11.6-14.6); RBC Distribution Width SD 46.8 fl (35.1-43.9); Red Blood Count 4.95 M/mm3 (4.6-6.2); White Blood Count 4.7 K/mm3 (4.4-11.0)
[2023-02-10 23:55] LABS: Erythrocyte Sedimentation Rate 11 mm/hr (0-20)
== END | disposition home or self-care (01) ==
PROVIDERS: PCP Family Medicine Geriatric Medicine; Referring Provider Family Medicine Geriatric Medicine; Visit Provider Family Medicine Geriatric Medicine
DX: M79.645 Pain in left finger(s) (principal); M10.9 Gout, unspecified; I34.89 Other nonrheumatic mitral valve disorders
CPT/HCPCS: 36415; 73140; 80048; 84550; 85025; 85652; 86140

== ENCOUNTER → 2023-02-28 | Outpatient (CLI) | payer OTHER, MEDICARE, SELFPAY | END | disposition home or self-care (01) | PROVIDERS: PCP Family Medicine Geriatric Medicine; Visit Provider Family Medicine Geriatric Medicine | DX: I34.89 Other nonrheumatic mitral valve disorders (principal) | CPT/HCPCS: 36415 ==

== ENCOUNTER → 2023-07-20 | Outpatient (CLI) | payer OTHER, MEDICARE, SELFPAY ==
[2023-07-20 13:14] LABS: Absolute Lymphocyte Count 0.67 X10^3/uL (0.83-4.51); Absolute Neutrophil Count 2.8 X10^3/uL (2.0-7.7); Basophil# 0.04 X10^3/uL; Eosinophil# 0.06 X10^3/uL; Eosinophils% 1.5 % (0-5); Hematocrit 44.1 % (40-54); Hemoglobin 14.1 g/dL (13.0-16.5); Lymphocyte # 0.67 X10^3/ul (0.83-4.51); Lymphocyte % 16.6 % (19-41); Mean Corpuscular Hgb 29.2 pg (27.0-32.0); Mean Corpuscular Volume 91.3 fL (80-94); Mean Platelet Vol. 9.8 fl (6.2-12.0); Monocyte# 0.44 X10^3/uL; Monocyte% 10.9 % (0-10); NRBC Flagged by Analyzer 0 % (0-5); Neutrophil # 2.82 X10^3/uL (2.7-7.7); Platelet Count 151 K/mm3 (150-450); RBC Distribution Width CV 13.7 % (11.6-14.6); Red Blood Count 4.83 M/mm3 (4.6-6.2)
[2023-07-20 13:30] LABS: Vitamin D,25 Hydroxy 29.3 ng/mL
[2023-07-20 13:44] LABS: AST(SGOT) 22 U/L (15-37); Alanine Aminotransfer ALT/SGPT 33 U/L (16-61); Albumin, Serum 3.7 g/dL (3.2-5.0); Alkaline Phosphatase 76 U/L (45-117); Anion Gap 5 (5-15); BUN 22 mg/dL (7-18); BUN/Creat Ratio 23.5 RATIO (10-20); Calcium,Total 9.5 mg/dL (8.5-10.1); Chloride 109 mmol/L (98-107); Creatinine, Serum 0.94 mg/dL (0.70-1.30); EST Glomerular Filtration Rate 85 mL/min (>60); Est Glom Filt Rate - Afr Amer 102 mL/min (>60); Globulin 3.8 g/dL (2.2-4.2); Glucose 82 mg/dL (74-106); Potassium 4.1 mmol/L (3.5-5.1); Protein, Total 7.5 g/dL (6.4-8.2); Sodium Level 142 mmol/L (136-145); Thyroid Stim Hormone (TSH) 2.05 uIU/mL (0.358-3.74); Uric Acid 5.3 mg/dL (3.5-7.2)
== END | disposition home or self-care (01) ==
LOC: POLAB3 09:24
PROVIDERS: PCP Family Medicine Geriatric Medicine; Visit Provider Family Medicine Geriatric Medicine
DX: I10 Essential (primary) hypertension (principal); E55.9 Vitamin D deficiency, unspecified; M10.9 Gout, unspecified; Z12.5 Encounter for screening for malignant neoplasm of prostate
CPT/HCPCS: 36415; 80053; 82306; 84153; 84443; 84550; 85025; G0103

== ENCOUNTER → 2024-01-18 | Outpatient (CLI) | payer OTHER, MEDICARE, SELFPAY ==
[2024-01-18 11:42] LABS: Absolute Lymphocyte Count 0.49 X10^3/uL (0.83-4.51); Basophil# 0.02 X10^3/uL; Basophil% 0.4 % (0-1); Eosinophil# 0.12 X10^3/uL; Eosinophils% 2.6 % (0-5); Hematocrit 41.7 % (40-54); Hemoglobin 13.7 g/dL (13.0-16.5); Lymphocyte # 0.49 X10^3/ul (0.83-4.51); Lymphocyte % 10.7 % (19-41); Mean Corp Hgb Conc 32.9 g/dL (32-36); Mean Corpuscular Hgb 29.1 pg (27.0-32.0); Mean Corpuscular Volume 88.5 fL (80-94); Mean Platelet Vol. 9.4 fl (6.2-12.0); Monocyte# 0.94 X10^3/uL; Monocyte% 20.5 % (0-10); NRBC Flagged by Analyzer 0 % (0-5); Neutrophil % 65.6 % (47-70); POSITIVE DIFFERENTIAL YES; Platelet Count 127 K/mm3 (150-450); RBC Distribution Width CV 13.9 % (11.6-14.6); RBC Distribution Width SD 45.1 fl (35.1-43.9); Red Blood Count 4.71 M/mm3 (4.6-6.2); White Blood Count 4.6 K/mm3 (4.4-11.0)
[2024-01-18 12:01] LABS: Vitamin D,25 Hydroxy 27.8 ng/mL
[2024-01-18 12:23] LABS: AST(SGOT) 28 U/L (15-37); Alanine Aminotransfer ALT/SGPT 38 U/L (16-61); Albumin, Serum 3.6 g/dL (3.2-5.0); Alkaline Phosphatase 78 U/L (45-117); Anion Gap 4 (5-15); BUN 16 mg/dL (7-18); BUN/Creat Ratio 16.5 RATIO (10-20); Calcium,Total 9.1 mg/dL (8.5-10.1); Chloride 108 mmol/L (98-107); Creatinine, Serum 0.97 mg/dL (0.70-1.30); EST Glomerular Filtration Rate 81 mL/min (>60); Est Glom Filt Rate - Afr Amer 98 mL/min (>60); Globulin 3.5 g/dL (2.2-4.2); Glucose 97 mg/dL (74-106); Potassium 4.5 mmol/L (3.5-5.1); Protein, Total 7.1 g/dL (6.4-8.2); Sodium Level 139 mmol/L (136-145); Uric Acid 4.9 mg/dL (3.5-7.2)
== END | disposition home or self-care (01) ==
LOC: POLAB3 10:30
PROVIDERS: PCP Family Medicine Geriatric Medicine; Visit Provider Family Medicine Geriatric Medicine
DX: I10 Essential (primary) hypertension (principal); E55.9 Vitamin D deficiency, unspecified; M10.9 Gout, unspecified
CPT/HCPCS: 36415; 80053; 82306; 84443; 84550; 85025

== ENCOUNTER → 2024-02-05 | Outpatient (CLI) | payer OTHER, MEDICARE, SELFPAY | END | disposition home or self-care (01) | LOC: LABSPEC 10:42 | PROVIDERS: PCP Family Medicine Geriatric Medicine; Referring Provider Surgery; Visit Provider Surgery | DX: K40.90 Unilateral inguinal hernia, without obstruction or gangrene, not specified as recurrent (principal) | CPT/HCPCS: 87077; 87081 ==

== ENCOUNTER → 2024-03-28 | Outpatient (CLI) | payer OTHER, MEDICARE, SELFPAY ==
--- NOTE | 2024-03-28 12:51 | ECHOD_ITS ---
Reason For Study: PRE OP Procedure This was a 2D Doppler, Color Flow transthoracic echocardiogram. Exam performed in department. Left Ventricle Normal LV size. The left ventricular ejection fraction is 45 %. Stage 1 diastolic dysfunction. There is mild global hypokinesis of the left ventricle. Right Ventricle Normal RV size. Normal systolic function. Atria The left atrium is severely enlarged. Normal right atrium. Mitral Valve Status post mitral valve repair with annuloplasty ring. Tricuspid Valve Normal tricuspid valve. Mild (1+) tricuspid valve insufficiency. Pulmonary artery systolic pressure is 30 mmHg. Aortic Valve Trisinus/trileaflet aortic valve. Pulmonic Valve Normal pulmonic valve. Mild-Moderate (1-2+) pulmonic valve insufficiency. Great Vessels Mildly dilated aortic root. The pulmonary artery is normal size. Inferior vena cava collapse with sniff. Pericardium/Pleural No pericardial effusion. MMode/2D Measurements & Calculations LVIDd: 5.3 cm IVSd: 1.3 cm Ao root diam: 4.2 cm LVIDs: 3.5 cm LVPWd: 1.2 cm FS: 33.0 % LAV(MOD-bp): 107.9 ml LVAd ap4: 38.5 cm2 SV(MOD-sp4): 62.6 ml LAV(MOD-bp) Indexed: 49.2 ml/m2 LVLd ap4: 9.0 cm LAV(MOD-sp2): 109.6 ml EDV(MOD-sp4): 135.9 ml LAV(MOD-sp4): 99.5 ml EDV(sp4-el): 139.6 ml LVAs ap4: 25.8 cm2 LVLs ap4: 7.5 cm ESV(MOD-sp4): 73.3 ml ESV(sp4-el): 75.3 ml EF(MOD-sp4): 46.1 % EF(sp4-el): 46.1 % SV(sp4-el): 64.4 ml LA A4 area: 30.4 cm2 LA dimension(2D): 5.0 cm RA A4 area: 18.0 cm2 TAPSE: 1.2 cm Time Measurements MV dec time: 0.56 sec Doppler Measurements & Calculations MV E max binu: 150.1 cm/sec Lat Peak E' Binu: 12.5 cm/sec Med Peak E' Binu: 4.4 cm/sec MV A max binu: 152.7 cm/sec E/E' lat: 12.0 E/E' med: 33.9 MV E/A: 0.98 MV V2 max: 153.6 cm/sec Ao V2 max: 120.4 cm/sec MV max P.4 mmHg MV dec slope: 266.8 cm/sec2 Ao max P.8 mmHg MV V2 mean: 98.9 cm/sec Ao V2 mean: 87.7 cm/sec MV mean P.5 mmHg Ao mean P.5 mmHg MV V2 VTI: 77.0 cm Ao V2 VTI: 28.9 cm AV (velocity ratio): 0.87 LV V1 max: 111.3 cm/sec PA V2 max: 100.1 cm/sec PI end-d binu: 120.7 cm/sec LV V1 max P.0 mmHg PA V2 mean: 65.4 cm/sec LV V1 mean P.8 mmHg LV V1 mean: 79.1 cm/sec LV V1 VTI: 25.3 cm TR max binu: 258.4 cm/sec TR max P.7 mmHg ECHO/Echo Complete Interpretation Summary Status post mitral valve repair with annuloplasty ring. The left ventricular ejection fraction is 45 %. Normal LV size. Stage 1 diastolic dysfunction. The left atrium is severely enlarged. Ordering Physician: Mitchel Shen Referring Physician: Mitchel Shen Performed By: Phoebe Evans RCS
== END | disposition home or self-care (01) ==
LOC: CVS 12:50
PROVIDERS: PCP Family Medicine Geriatric Medicine; Referring Provider Nurse Practitioner Family; Visit Provider Nurse Practitioner Family
DX: Z01.810 Encounter for preprocedural cardiovascular examination (principal); Z95.2 Presence of prosthetic heart valve; Z98.890 Other specified postprocedural states
CPT/HCPCS: 93306; J2405

== ENCOUNTER 2024-04-04 09:48 | Day surgery (SDC) | payer OTHER, MEDICARE, SELFPAY ==
[2024-04-04] VITALS (12 sets, daily range): BP systolic 113–145; BP diastolic 77–86; PULSE 52–76; RESP 15–18; TEMP 36.3–37.3; O2SAT 91–99; BMI 32.0
--- NOTE | 2024-04-04 10:14 | PCM.PRE.AN2 ---
ASA Classification* ASA Classification ASA Classification: 2 Assessment & Plan Anesthesia* Anesthesia Assessment Anesthesia Assessment: Discussed sedation and/or anesthesia options, risks, benefits, and alternatives with patient/parents/legal guardian/POA. Questions invited. The patient/parents/legal guardian/POA seems to understand and agrees to proceed with anesthesia plan. Reviewed the physical assessment, medical history, allergy history and patient home medications list prior to surgery/procedure/anesthetic and documented any changes. Performed airway and anesthesia risk assessments. Procedural Plan Procedural Plan:: Proceed w/ Anesthesia plan Anesthesia Type Anesthesia Type: General (see written pre anesthesia record for full assessment) Anesthesia Focused Assessment* Airway Assessment Mouth opens: >3 cm Mallampati Score: III Focused Labs Anesthesia Preop lab: CBC WBC 4.6 K/mm3 (4.4-11.0) 01/18/24 10:32 RBC 4.71 M/mm3 (4.6-6.2) 01/18/24 10:32 Hgb 13.7 g/dL (13.0-16.5) 01/18/24 10:32 Hct 41.7 % (40-54) 01/18/24 10:32 Plt Count 127 K/mm3 (150-450) L 01/18/24 10:32 CHEMISTRY Potassium 4.5 mmol/L (3.5-5.1) 01/18/24 10:32 Sodium 139 mmol/L (136-145) 01/18/24 10:32 Magnesium 2.0 mg/dL (1.6-2.6) 01/06/22 10:40 Phosphorus 2.0 mg/dL (2.5-4.9) L 06/12/18 11:13 BUN 16 mg/dL (7-18) 01/18/24 10:32 Creatinine 0.97 mg/dL (0.70-1.30) 01/18/24 10:32 Glucose 97 mg/dL (74-106) 01/18/24 10:32 POC Glucose 101 mg/dL (74-106) 01/19/22 06:16 TSH 2.60 uIU/mL (0.358-3.74) 01/18/24 10:32 COAG PT 15.1 SECONDS (11.7-14.9) H 01/21/22 05:50 Pre-Assessment Diagnosis/Proposed Procedure Planned Operative Procedure(s): ROBOTIC LEFT INGUINAL HERNIA REPAIR WITH MESH Anesthesia History Anesthesia History - certified hyperbaric technologist: Anesthesia History - certified hyperbaric technologist Hx Hospitalization No 03/18/24 11:07 Any Problems With Anesthesia Yes: HEADACHE 03/18/24 11:07 Cholinesterase deficiency No 03/18/24 11:07 You/Your Family Experience No 03/18/24 11:07 fever (hyperthermia) with Relationship Recent Exposure to Contagious No 10/31/17 09:25 Disease Does patient have nerve No 03/18/24 11:07 stimulator Patient instructed to have device shut off --Does patient have Pacemaker or ICD? When Was Last Pacemaker Check QUESTION #4 FULL TEXT: You/Your Family Experience fever (hyperthermia) with Anesthesia Last Oral Intake Last Oral intake: Last Oral Intake NPO since Meds taken in AM with sips of water? Meds patient instructed to take am of surgery PONV PONV - certified hyperbaric technologist: PONV - certified hyperbaric technologist Female No 03/18/24 11:07 HX of Motion Sickness No 03/18/24 11:07 HX of N/V After Surgery No 03/18/24 11:07 Non-Smoker Yes 03/18/24 11:07 Duration of Surgery greater Yes 03/18/24 11:07 than 60 minutes Number of Risk Factors 2 03/18/24 11:07 PONV Score Moderate Risk 03/18/24 11:07 Height & Weight Height & Weight: Anesthesia: Height & Weight Height 5 ft 10 in 03/25/24 07:49 Respiratory Assessment Respiratory Assessment - certified hyperbaric technologist: Respiratory Tract Infection Hx - certified hyperbaric technologist Hx Respiratory Tract Infection No 03/18/24 11:07 STOP Sleep Apnea STOP Sleep Apnea - certified hyperbaric technologist: STOP Sleep Apnea - certified hyperbaric technologist Hx Hypertension Yes: CONTROLLED WITH MED 03/18/24 11:07 Hx Sleep Apnea Yes 03/18/24 11:07 CPAP Yes 03/18/24 11:07 BIPAP No 03/18/24 11:07 Do you snore loudly (louder than talking or can be heard Do you often feel tired/ fatigued/ sleepy during daytime? Has anyone observed you stop breathing during sleep? STOP Results Positive 03/18/24 11:07 QUESTION #5 FULL TEXT : Do you snore loudly (louder than talking or can be heard through closed doors)? Tobacco Use History Tobacco Use History - certified hyperbaric technologist: Tobacco Use History - certified hyperbaric technologist Tobacco Use Smoking Status Never smoker 03/18/24 11:07 Hx Tobacco Use No 03/18/24 11:07 Years Smoking Packs Smoked per Day Smoking Cessation Date was within the last 15 years Hx Smoking Cessation Date Hx Smoking Cessation Counseling Hematologic Medial History Hematologic Hx - certified hyperbaric technologist: Hematologic Medical Hx - service developer Hx of Blood Transfusion Yes 03/18/24 11:07 Hx of Transfusion in last 3 No 03/18/24 11:07 Months Date of Last Transfusion (if within last 3 months) Ever experience any problems No 03/18/24 11:07 with transfusion(s)? Specify any problems Hx of Preganancy in last 3 N/A 03/18/24 11:07 Months Nurse Filling Out Transfusion DSCHRIBER 03/18/24 11:07 & Questions: Date: 03/18/24 03/18/24 11:07 Time: 11:08 03/18/24 11:07 Patient unable to answer at this time (ie. confused, unrespo /Reproduction History /Reproductive History - certified hyperbaric technologist: /Reproductive Hx- certified hyperbaric technologist Hx Now No 03/18/24 11:07 Gestational Age (in weeks): EDC: Hx Hx Para Hx Section SAB No 03/18/24 11:07 Active Medications Active Medications: Current Medications Generic Name Dose Route Start Last Admin Trade Name Freq PRN Reason Stop Dose Admin Cefazolin Sodium 2 gm/ Sodium 110 mls @ 150 mls/hr 04/04/24 11:30 Chloride IV 04/04/24 12:13 PREOP ONE Lactated Ringer's 1,000 mls @ 15 mls/hr 04/04/24 10:15 IV .Q48H RONNI PFSH Medical History Preop cardiovascular exam Low iron Fragile skin Back pain Injury of head and neck CPAP (continuous positive airway pressure) dependence History of edema Wears dentures Wears glasses Thyroid disease Arthritis Non-smoker Leg cramps History of pain when walking History of echocardiogram S/P transesophageal echocardiogram ([facility]) Hypertension Cardiology follow-up encounter 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 Non-rheumatic tricuspid valve insufficiency Nonrheumatic mitral (valve) insufficiency Nonrheumatic mitral (valve) prolapse Hydronephrosis Lung nodule History of pulmonary embolus (PE) (11/02/17) Essential hypertension Anemia 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) Compound heterozygous MTHFR mutation [id number] Hypoalbuminemia Gastritis Weight loss, unintentional Hypothyroid DDD (degenerative disc disease), lumbar Segmental and somatic dysfunction of thoracic region Segmental and somatic dysfunction of pelvic region Segmental and somatic dysfunction of lumbar region Umbilical hernia without mention of obstruction or gangrene Home Medications ?Medication ?Instructions ?Recorded ?Last Taken ?Type fluticasone propionate 50 1 spray NASAL BID PRN Allergies 12/13/18 Unknown History mcg/actuation nasal spray,suspension amlodipine 5 mg tablet 5 mg PO DAILY 06/15/20 01/19/22 History multivitamin 1 ea PO DAILY 06/15/20 Unknown History prednisolone acetate (PF) 1 % eye 1 drp LEFT EYE DAILY 06/15/20 01/18/22 History drops,suspension levothyroxine 50 mcg tablet 50 mcg PO DAILY 08/27/21 01/18/22 History cholecalciferol (vitamin D3) 25 25 mcg PO DAILY 03/21/23 Unknown History mcg (1,000 unit) tablet amoxicillin 500 mg capsule 2,000 mg PO ONCE PRN 03/19/24 Unknown History carvedilol 6.25 mg tablet 6.25 mg PO BID stop Metoprolol and 04/01/24 Unknown Rx start this medication #60 tabs Allergy/AdvReac Type Severity Reaction Status Date / Time Wmieexh-BIQ-UoC Reductase AdvReac Severe Muscle Verified 03/25/24 07:50 Inhibitor (Fhqrxyw-Foa-Hgd Weakness Reductase Inhibitor) Family History Father Prostate cancer Heart disease Daughter Asthma Mother Aorta aneurysm Surgical History Hx of right cataract extraction Hx of left cataract extraction History of right hip replacement (01/19/22) Hx of eye surgery History of right and left heart catheterization (10/19/18) History of tricuspid valve repair (10/23/18) History of facial surgery H/O mitral valve replacement (10/23/18) History of cataract surgery History of right inguinal hernia repair History of umbilical hernia repair Hx of appendectomy Social History Smoking Status: Never smoker alcohol intake: never substance use type: does not use caffeine: Yes what type of physical activity do you participate in: none frequency: does not exercise Review of Systems (Anesthesia) ROS Narrative System reviewed and no additional complaints, except as documented.
--- NOTE | 2024-04-04 10:28 | HP.PCM_ITS ---
History and Physical Date of Service: 03/25/24 MR#: [id number] Acct: [id number] Name: SOWMYA OLIVARES Rep #: [id number] : 1955 Provider: Dr. Adrián Stearns MD Age/Sex: 68/M Location: [facility] Status: Signed Intake Vital Signs 02/05/2408:25 03/19/2408:17 03/25/2407:49 Height 5 ft 10 in 5 ft 10 in 5 ft 10 in Weight: 222 lb 225 lb 222 lb 8 oz BMI 31.8 32.3 31.9 BP 122/79 H 125/71 H 144/86 H Blood Pressure Location Rt brachial Lt brachial Rt brachial Position Sitting Sitting Sitting Respiration 17 16 18 Pulse 74 57 L 59 L Pulse Source Monitor NIBP Monitor Temp 97.4 F L 97.4 F L Temp Source Temporal Temporal Pulse Oximetry (%) 97 97 Oxygen Delivery Method room air room air Intake Visit Reasons: UPDATE H&P Chief Complaint: update H&P for left inguinal hernia repair Is patient in pain?: No Allergies Fwlrunm-YSO-WxM Reductase Inhibitor (Cfyrplp-Maw-Ctk Reductase Inhibitor) Adverse Reaction (Severe, Verified 03/25/24 07:50) Muscle Weakness Medications ?Medication ?Instructions ?Recorded ?Confirmed ?Type fluticasone propionate 50 1 spray NASAL BID PRN Allergies 12/13/18 03/25/24 History mcg/actuation nasal spray,suspension amlodipine 5 mg tablet 5 mg PO DAILY 06/15/20 03/25/24 History multivitamin 1 ea PO DAILY 06/15/20 03/25/24 History prednisolone acetate (PF) 1 % eye 1 drp LEFT EYE DAILY 06/15/20 03/25/24 History drops,suspension levothyroxine 50 mcg tablet 50 mcg PO DAILY 08/27/21 03/25/24 History metoprolol tartrate 25 mg tablet 12.5 mg PO BID 08/27/21 03/25/24 History cholecalciferol (vitamin D3) 25 25 mcg PO DAILY 03/21/23 03/25/24 History mcg (1,000 unit) tablet amoxicillin 500 mg capsule 2,000 mg PO ONCE PRN 03/19/24 03/25/24 History PFSH Medical History Preop cardiovascular exam Low iron Fragile skin Back pain Injury of head and neck CPAP (continuous positive airway pressure) dependence History of edema Wears dentures Wears glasses Thyroid disease Arthritis Non-smoker Leg cramps History of pain when walking History of echocardiogram S/P transesophageal echocardiogram ([facility]) Hypertension Cardiology follow-up encounter 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 Non-rheumatic tricuspid valve insufficiency Nonrheumatic mitral (valve) insufficiency Nonrheumatic mitral (valve) prolapse Hydronephrosis Lung nodule History of pulmonary embolus (PE) (11/02/17) Essential hypertension Anemia 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) Compound heterozygous MTHFR mutation [id number] Hypoalbuminemia Gastritis Weight loss, unintentional Hypothyroid DDD (degenerative disc disease), lumbar Segmental and somatic dysfunction of thoracic region Segmental and somatic dysfunction of pelvic region Segmental and somatic dysfunction of lumbar region Umbilical hernia without mention of obstruction or gangrene Surgical History Hx of right cataract extraction Hx of left cataract extraction History of right hip replacement (01/19/22) Hx of eye surgery History of right and left heart catheterization (10/19/18) History of tricuspid valve repair (10/23/18) History of facial surgery H/O mitral valve replacement (10/23/18) History of cataract surgery History of right inguinal hernia repair History of umbilical hernia repair Hx of appendectomy Family History Father Prostate cancer Heart diseaseDaughter AsthmaMother Aorta aneurysm Social History Smoking Status: Never smoker alcohol intake: never substance use type: does not use caffeine: Yes what type of physical activity do you participate in: none frequency: does not exercise HPI HPI HPI: Patient is a 68-year-old male who presents for evaluation of a known left-sided inguinal hernia. He is referred from Dr. Arce. This is patient's second office visit after his consultation visit on 02/05/2024.Patient confirms a recent visit to cardiology that was largely reassuring, but he does share that he is pending a repeat echocardiogram on 03/28/2024. Provided no significant changes with this study he has been permitted to proceed with hernia repair without further cardiac clearance required. 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 He states through this work he had some pain through his right hip but had no increased bulging or further difficulty with his left groin hernia. He confirms, specifically, that its contents have remained soft and that his bowel movements have been regular. Below is recapitulated from patient's prior visit for ease of review: This finding was first noticed by a routine CT exam and patient was unaware the hernia was present. However, it has become more symptomatic. He shares that his sac is still swollen and that there is a dull ache all the time. He notes it to be rather constant during work. 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 Additionally he confirms that there has been growth in the size of the hernia. He denies any negative impact to his bowel habits. Patient has a remote history of some urinary difficulty but was given a clear slate after an experience with hematuria from Dr. Bonilla of urology. Patient also has a history of vasculitis and cryoglobulinemia. He shares that he had a 60 pound unintentional weight loss and was evaluated at [facility] in [place]. While this is where his diagnosis was made he shares that the first treatment he underwent did not work and he required prolonged prednisone therapy. He states that he then went to [facility] for second opinion where he was given a low-dose of chemotherapy. It then planned that he would have to treatment 6 months apart but he ultimately did not require the second treatment as he was reevaluated and found to be cured of his vasculitis. He notes that during his diagnosis with vasculitis he was diagnosed with bilateral pulmonary emboli and was on anticoagulation first with Eliquis and then with Coumadin. However, he estimates that 6 months ago he was taken off these medications after extensive coagulopathy workup by Dr. Arce. He does share that during the interval between treatments he underwent mitral valve repair of his heart in 2019. Since undergoing his valvular repair he has not experienced any significant shortness of breath. He suggests that he is on a surveillance schedule of visits every 6 months with [facility] (however I see that patient has not had a visit since March 2023). Lastly, Mr. Olivares has a history of obstructive sleep apnea but confirms related issues with his CPAP. Patient has not personal history of smoking. Has not personal history of recurrent cutaneous infections including staph. Pertinent surgical history includes: Umbilical hernia repair with Ventralex mesh (05/19/2016), right inguinal hernia repair, appendectomy ROS General General: No weight change, appetite, fatigue, colon cancer, breast cancer or weakness HEENT HEENT: Yes eye surgery; No difficulty swallowing, eye injury, swollen glands or hoarseness Endo Endocrine: Yes thyroid disease; No diabetes mellitus, thyroid cancer, Hair loss, heat intolerance or cold intolerance Skin Skin: No rash or changing moles Musc Musculoskeletal: Yes arthritis; No back problems, rheumatoid arthritis, gout or joint pain Cardio Cardiovascular: Yes high blood pressure; No murmur, pacemaker, heart disease, atrial fibrillation, heart attack, heart stent, palpitations, shortness of breat with exertion or chest pain Psych Psychiatric: No depression, anxiety or hearing voices Resp Respiratory: No shortness of breath, Yes sleep apnea, No cough, No COPD, No asthma, No emphysema and No wheezing Gastro Gastrointestinal: No abdominal pain, No nausea or vomiting, No diarrhea, No constipation, No blood in stool, No acid reflux, No hemorrhoids, No ulcers, No gallbladder problem and No black,tarry stools Azar Hematologic: No blood thinners, No blood disorders, No bleeding, No anemia and Yes blood clots Additional Details: h/o vasculitis Neuro Neurologic: No system reviewed and no additional complaints, except as documented, No as per HPI, No abnormal gait, No abnormal hearing, No abnormal movements, No abnormal speech, No behavioral changes, No burning sensations, No confusion, No convulsions, No disequilibrium, No dizziness, No localized weakness, No frequent falls, No headache(s), No lack of coordination, No loss of vision, No memory loss, No numbness, No other visual disturbances, No radicular pain, No restless legs, No sensory deficit, No syncope, No tingling, No tremor(s), No weakness and No other Exam Const General: cooperative Orientation: alert, awake and oriented x3 Resp Effort & Inspection: normal respiratory effort GI Other: Nondistended, soft, nontender to palpation. Patient does point out to a incisional hernia directly at the level of his xiphoid process from his prior CABG. Other: Stable exam for left inguinal hernia containing what appears to be both fatty tissue and bowel that is reducible. Assessment and Plan Assessment and Plan (1) Left inguinal hernia: Status: Chronic Comment: Patient is a 68-year-old male who presents with progressive symptoms from a long-established left inguinal hernia. In fact it appears he was previously seen in consultation for this hernia in 2018. He shares that he was initially a dvised that it did not require repair since it was not causing him any symptoms. Hernia is now causing discomfort and has undergone some growth. Fortunately, Mr. Olivares appears to be in a better state of health as well as his previously diagnosed vasculitis is cured and he is no longer on anticoagulation for his history of bilateral pulmonary emboli. 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 However, I am recommending that we proceed with cardiac clearance as I anticipate performing a robot-assisted left inguinal hernia repair with mesh. He was already due for a cardiac evaluation in just over a month so we will plan to keep that appointment and schedule a follow-up visit to update H&P. In the interim I am recommending that he trial a hernia truss to help with his discomfort at work. I have advised him on appropriate use of the truss and cautioned him against inappropriate application as well as any red flag symptoms for his hernia. Update 03/25/2024: Patient needs routine updated H&P requirement today. He has received provisional clearance through cardiology (so long as his echocardiogram is reassuring later this week) for surgery. He confirms stability with his hernia. He also confirms that he has completed the most demanding of his physical test at work and is prepared for the activity restrictions to come postoperatively. The details of the procedure were reviewed and all questions answered. Plan: Outpatient robot-assisted left inguinal hernia repair with mesh 04/04/2024. Last follow-up echocardiogram later this week to ensure patient is given full cardiac clearance. I have examined the patient and the H&P has been reviewed. There are no clinical changes since date of exam. Mr. Olivares confirms that he is ready for today's procedure because he has had 3 days of worsening discomfort from his hernia. He shares that he has done less activity over those 3 days than he has the rest of the summer and is puzzled by the uptick in symptoms. Procedure and post procedure activity restrictions/wound care were reviewed. Mr. Olivares denies any further questions. Will now proceed to the operating room for robot- assisted left inguinal hernia repair with mesh.
[2024-04-04] MEDS: Lactated Ringers 1,000 ML 15 ML IV (10:44)
--- NOTE | 2024-04-04 11:30 | HERN_PTH ---
PATIENT: SOWMYA PAREDES LOC: [facility] [place] U#:[id number] AGE/SX: 68/M ROOM: RE04/04/[address]: Dr. Adrián Stearns MD : 1955 BED: DIS: 04/04/2024 SPEC #: [id number] RECD: 04/04/24 15:11 STATUS: CLINT KATELIN #: [id number] OSCAR: 04/04/24 11:[address]: Adrián Stearns DEPT: SURGICAL PATHOLOGY RECD BY: Mariia Christopher ENTERED: 04/05/24 07:09 SP TYPE: Hernia OTHR DR: Dr. Wade Arce MD Tissues: HERNIA Procedures: Surgery Specimen Level II HEADER OPERATION: Laparoscopic robotic left inguinal hernia repair with mesh PRE-OP DIAGNOSIS: Left inguinal hernia TISSUE SUBMITTED: Left inguinal lipoma of the cord MICROSCOPIC DIAGNOSIS Left inguinal lipoma of cord, excision: Mature fibrofatty tissue consistent with lipoma of cord. AM/mr 04/08/2024 MICROSCOPIC DESCRIPTION Slides are reviewed. GROSS DESCRIPTION Received in fixative is one container labeled with the patient's name and designated Left inguinal lipoma with cord. The specimen consists of an irregular piece of yellow adipose tissue measuring 7.0 x 3.0 x 0.6cm. Sections reveal yellow adipose cut surfaces without area of necrosis, hemorrhage and cystic degeneration. [employer] sections are submitted in one cassette. WILTON/ 04/05/2024 TC:1 CPT:18157
[2024-04-04] MEDS: Cefazolin 2 GM in 0.9% Normal Saline (100mL Bag) 100 ML IV (11:56)
[2024-04-04] MEDS: Bupivacaine 0.25% 30 ML Vial (12:19)
--- NOTE | 2024-04-04 14:28 | OP.PCM_ITS ---
Report of Operation Date of Procedure: 04/04/24 Pre-Operative Diagnosis: Left inguinal hernia Post-Operative Diagnosis: Left indirect inguinal hernia Surgeon: Adrián Stearns network security administrator: Briana Bach network security administrator: Jocelyn Smith Type of Anesthesia: General/Supplemental Anesthesiologist: Compa Weber Estimated Blood Loss (mL): 15 Description of Procedure: After appropriate identification in the preoperative holding area the patient was brought to the operating room where he was positioned supine on the operating table. Preoperative antibiotics were completed and the patient was administered a general anesthetic. Patient's abdomen was then prepped and draped in usual sterile fashion. Formal timeout followed to confirm patient and procedure. Procedure was begun with an optical entry facilitated by Veress insufflation at Naidu's point. Once pneumoperitoneum reached a set point pressure of 15 mmHg the Veress needle was withdrawn and an optical entry was made with a robotic trocar. Laparoscopic visualization confirmed no inadvertent injury to the viscera below and 2 additional ports were placed in the right upper quadrant and paramedian positions, respectively, after instillation of local anesthetic. Patient was positioned in slight Trendelenburg and I performed a local block of the left ilioinguinal nerve using 3 mL local anesthetic under laparoscopic visualization. There was a clearly discernible left indirect hernia defect present. The robot was docked in standard fashion. In this positioning, on the right, I could visualize a a number of adhesions to patient's prior anterior abdominal wall incision (appendectomy) as well as a hernia mesh. However, I did not see any clear evidence of a hernia defect. Thus, robotically, a peritoneal flap was created on the left extending from the medial umbilical ligament to the level of the ASIS (external) and was bluntly dissected inferiorly to expose the medial parietal compartment and lateral visceral compartments. Medially I could visualize the pubic tubercle and Sung's ligament while laterally I extended the dissection down to the level of the psoas musculature. The indirect hernia sac was identified and from the cord structures deeply with selective use of monopolar energy. A large cord lipoma was identified and removed from alongside the spermatic cord by dividing the cremasterics fibers with monopolar energy or simply sweeping them aside. I dissected this cord lipoma proximally until I was on top of the psoas muscle and it appeared to fuse directly with the retroperitoneal fat. Not wanting to incur bleeding or damage to the cord structures, the cord lipoma was left intact.. The peritoneal flap was inspected to ensure that cord was appropriately parietalized and there was no pulling of the cord structures or the viscera deeply over the psoas using the pull test. Once satisfied, a Bard 3D max, size large, mid weight mesh was placed into the abdomen along with suture. It was positioned within the preperitoneal pocket so that there was good medial and inferior overlap and resided fully in front of the cord lipoma and as well as the bladder. It was then tacked to the adminiculum of the linea alba just superior to the pubic tubercle, medially, and laterally in a partial- thickness bite of the abdominal wall using a 3-0 Vicryl suture. The peritoneal flap was then closed with a running 3-0 V-Loc suture taking care to conceal the barbs of the suture beneath the peritoneum. Once the flap closure was complete, I undertook repair of a small peritoneal defect overlying the area of the cord with 3-0 Vicryl. With the peritoneal defects closed, sutures were systematically removed from the peritoneum and the pneumoperitoneum was evacuated before removing the trocars. The port sites were closed at the skin with running 4-0 Monocryl in a subcuticular fashion. Steri-Strips and OpSite's were used as dressings. Patient's testicles were confirmed within the scrotum. Patient was then awoken from anesthetic and transferred to PACU for ongoing recovery. Grafts/Implants Used: 3D max mid anatomic mesh, lot [id number], reference [id number] Complications None Admit VTE Documentation VTE Mechan Device Prophylaxis: SCD's Procedures Digestive 40xxx-49xxx: 11692 Lap ing hernia repair init
--- NOTE | 2024-04-04 14:37 | EX.PCM.DISCH ---
Discharge Instructions Diet Discharge Diet: No restrictions Activity Discharge Activity: May Not Drive (While taking narcotic pain medication) and May Shower May shower in (days): 2 Ice area for (Minutes): 20 Lifting Restrictions: No lifting greater than 10 pounds for the next 5 weeks Dressing / Incision Call your doctor if your incision/area has: Continuous Slow Oozing, Increased Pain/ Swelling, Increased Redness, Foul Smelling Discharge and Swelling at the incision site Call your doctor if you observe: Fever of 101 or Higher, Inability to urinate and Inability to have a bowel movement Change Dressing in: 2 days (Please leave Steri-Strips intact until they fall off spontaneously or are taken off at your follow-up visit) Remove Dressing in: 2 days Cleanse incision/area with: Soap & Water and Keep Dressing Clean & Dry Follow Up Care Please Follow Up With: Adrián Stearns MD When: 1 week postop Test Results: Test results from this visit will be discussed in further detail at your follow-up appointment, if applicable. Discharge Plan Admission Primary Reason for Your Visit: Robotic left inguinal hernia repair with mesh Attending Provider: Adrián Stearns Primary Care Provider: Wade Arce Chi Instructions Print Language: Estonian Discharge Orders/Prescriptions Prescriptions: New oxycodone 5 mg tablet 5 mg PO Q6H PRN (Reason: pain) 3 Days Qty: 10 0RF Continued levothyroxine 50 mcg tablet 50 mcg PO DAILY cholecalciferol (vitamin D3) 25 mcg (1,000 unit) tablet 25 mcg PO DAILY amoxicillin 500 mg capsule 2,000 mg PO ONCE PRN (Reason: DENTAL VISITS) Rx Instructions: Take 1 hour prior to dental visits fluticasone propionate 1 SPRAY spray,suspension 1 spray NASAL BID PRN (Reason: Allergies) multivitamin 1 EACH tablet 1 ea PO DAILY amlodipine 5 MG tablet 5 mg PO DAILY prednisolone acetate (PF) 5 ML drops,suspension 1 drp LEFT EYE QHS carvedilol 6.25 mg tablet 6.25 mg PO BID Qty: 60 11RF Rx Instructions: must administer with a meal/food Referrals / Follow Up: Wade Arce Chi, MD [Primary Care Provider] - Disposition Disposition (needs filled in before D/C Order can be placed): Home, Self Care
--- NOTE | 2024-04-04 14:45 | PCM.POST.ANE ---
Anesthesia: Postop Eval I Current Vital Signs Temperature: 99.2 F Pulse Rate: 67 Blood Pressure: 113/77 Respiratory Rate: 16 Pulse Ox: 92 Oxygen Delivery Method: Room Air Assessment Airway patent: Yes Spontaneous unlabored respirations: Yes Mental status: Awake and Calm nausea: No Vomiting: No Anesthesia Complication: No Fluid Hydration Crystalloid volume administer (ml): 1,300 Total IV fluid infused: 1,300 Progress Note Anesthesia document: Postop Eval 1 completed: Yes
--- NOTE | 2024-04-04 15:08 | POSTOPAN2_ITS ---
Anesthesia Postop Eval I Sum Postop Eval Completion status Anesthesia document: Postop Eval 1 completed: Yes Anesthesia Postop Eval I Summary Anesthesia Postop Eval I Summary: Anesthesia Postop Eval I: Assessment Summary Airway patent Yes 04/04/24 14:46 [email or web address] Spontaneous unlabored Yes 04/04/24 14:46 [email or web address] respirations Mental status Awake,Calm 04/04/24 14:46 [email or web address] nausea No 04/04/24 14:46 [email or web address] Vomiting No 04/04/24 14:46 [email or web address] Anesthesia Postop Eval I: Fluid Summary Crystalloid volume administer 1,300 04/04/24 14:46 [email or web address] (ml) Colloids volume administered ( ml) Blood Product volume administered (ml) Total IV fluid infused 1,300 04/04/24 14:46 [email or web address] Anesthesia Postop Eval I: Summary Notes Anesthesia Complication No 04/04/24 14:46 [email or web address] Anesthesia Complication Comment: Post-operative progress note Anesthesia: Postop Eval II Evaluation Mental status: Awake and Calm Pain Level: 1 nausea: No Vomiting: No Complications Anesthesia Complication: No
--- NOTE | 2024-04-04 15:08 | PCM.POSTANE2 ---
Anesthesia Postop Eval I Sum Postop Eval Completion status Anesthesia document: Postop Eval 1 completed: Yes Anesthesia Postop Eval I Summary Anesthesia Postop Eval I Summary: Anesthesia Postop Eval I: Assessment Summary Airway patent Yes 04/04/24 14:46 CHAR HOUSE [email or web address] Spontaneous unlabored Yes 04/04/24 14:46 CHAR HOUSE [email or web address] respirations Mental status Awake,Calm 04/04/24 14:46 CHAR HOUSE [email or web address] nausea No 04/04/24 14:46 CHAR HOUSE [email or web address] Vomiting No 04/04/24 14:46 CHAR HOUSE [email or web address] Anesthesia Postop Eval I: Fluid Summary Crystalloid volume administer 1,300 04/04/24 14:46 CHAR HOUSE [email or web address] (ml) Colloids volume administered ( ml) Blood Product volume administered (ml) Total IV fluid infused 1,300 04/04/24 14:46 CHAR HOUSE [email or web address] Anesthesia Postop Eval I: Summary Notes Anesthesia Complication No 04/04/24 14:46 CHAR HOUSE [email or web address] Anesthesia Complication Comment: Post-operative progress note Anesthesia: Postop Eval II Evaluation Mental status: Awake and Calm Pain Level: 1 nausea: No Vomiting: No Complications Anesthesia Complication: No
[2024-04-04] MEDS: Acetaminophen 500 MG Tablet 1000 MG PO (16:42)
== END 2024-04-04 17:09 | disposition home or self-care (01) ==
LOC: SDC 09:49 → AC 09:50
PROVIDERS: PCP Family Medicine Geriatric Medicine; Referring Provider Surgery; Visit Provider Surgery
PROC: 0YQ64ZZ Repair Left Inguinal Region, Percutaneous Endoscopic Approach (ICD-10-PCS; CPT 49650; principal; 2024-04-04 11:10)
DX: K40.90 Unilateral inguinal hernia, without obstruction or gangrene, not specified as recurrent (principal); D17.6 Benign lipomatous neoplasm of spermatic cord; E07.9 Disorder of thyroid, unspecified; R63.4 Abnormal weight loss; I10 Essential (primary) hypertension; Z79.899 Other long term (current) drug therapy; Z86.711 Personal history of pulmonary embolism; Z68.32 Body mass index [BMI] 32.0-32.9, adult
CPT/HCPCS: 49650; S2900; 00840; 88302; J7120

== ENCOUNTER → 2024-05-13 | Outpatient (CLI) | payer OTHER, MEDICARE, SELFPAY ==
[2024-05-13 08:23] LABS: Anion Gap 4 (5-15); BUN 20 mg/dL (7-18); BUN/Creat Ratio 18.3 RATIO (10-20); Calcium,Total 9.1 mg/dL (8.5-10.1); Chloride 111 mmol/L (98-107); Creatinine, Serum 1.09 mg/dL (0.70-1.30); EST Glomerular Filtration Rate 71 mL/min (>60); Est Glom Filt Rate - Afr Amer 86 mL/min (>60); Glucose 95 mg/dL (74-106); Potassium 4.1 mmol/L (3.5-5.1); Sodium Level 143 mmol/L (136-145)
== END | disposition home or self-care (01) ==
LOC: OLS.ABSOLU 07:37 → LAB 07:37
PROVIDERS: PCP Family Medicine Geriatric Medicine; Referring Provider Nurse Practitioner Family; Visit Provider Nurse Practitioner Family
DX: I11.0 Hypertensive heart disease with heart failure (principal); I50.20 Unspecified systolic (congestive) heart failure; Z98.890 Other specified postprocedural states; Z95.2 Presence of prosthetic heart valve; Z86.711 Personal history of pulmonary embolism
CPT/HCPCS: 36415; 80048

== ENCOUNTER → 2024-05-31 | Outpatient (CLI) | payer OTHER, MEDICARE, SELFPAY | END | disposition home or self-care (01) | LOC: POLAB3 10:48 | PROVIDERS: PCP Family Medicine Geriatric Medicine; Visit Provider Family Medicine Geriatric Medicine | DX: B95.62 Methicillin resistant Staphylococcus aureus infection as the cause of diseases classified elsewhere (principal) | CPT/HCPCS: 87070; 87075; 87077; 87186; 87205; 87640 ==

== ENCOUNTER 2024-06-06 13:03 | Outpatient (RCR) | payer OTHER, MEDICARE, SELFPAY ==
[2024-06-06 13:05] VITALS: BP 121/86; PULSE 86; RESP 20; TEMP 36.3; BMI 31.8
--- NOTE | 2024-06-06 21:41 | HP.PCM_ITS ---
History of Present Illness Date of Service: 06/06/24 Chief Complaint: R calf wound History of Wound: Mr. Olayinka Guadalupe is a 68 y/o male who presents today for evaluation and management of a R calf wound as referred by Dr. Arce. He reports that at least 4 weeks ago, he accidentally dropped a utility knife and cut his R calf. At first, the wound was quite small, like a puncture but then over the next few weeks continued to enlarge. He developed increased pain and redness and presented to his PCP. He was initiated on antibiotics and referred here. He has one day left on his course of antibiotics. His symptoms have improved and the wound size has remained stable over this last week. Otherwise, he has been caring for this wound at home by applying triple antibiotic ointment and covering with a gauze dressing. He denies any prior history of non-healing wounds. He does have significant hem osiderin deposition in his bilateral lower legs but denies any confirmed venous insufficiency. He denies any history of VTE or varicose veins. He is not a smoker. He is not diabetic. He does not wear compression stockings. 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 Non-rheumatic tricuspid valve insufficiency Nonrheumatic mitral (valve) insufficiency Nonrheumatic mitral (valve) prolapse Hydronephrosis Lung nodule History of pulmonary embolus (PE) (11/02/17) Essential hypertension Anemia 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) Compound heterozygous MTHFR mutation 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 Hypoalbuminemia Gastritis Weight loss, unintentional Hypothyroid DDD (degenerative disc disease), lumbar Segmental and somatic dysfunction of pelvic region Segmental and somatic dysfunction of lumbar region Umbilical hernia without mention of obstruction or gangrene Home Medications ?Medication ?Instructions ?Recorded ?Last Taken ?Type fluticasone propionate 50 1 spray NASAL BID PRN Allergies 12/13/18 Unknown History mcg/actuation nasal spray,suspension prednisolone acetate (PF) 1 % eye 1 drp LEFT EYE QHS 06/15/20 04/02/24 History drops,suspension levothyroxine 50 mcg tablet 50 mcg PO DAILY 08/27/21 04/04/24 01:00 History cholecalciferol (vitamin D3) 25 25 mcg PO DAILY 03/21/23 04/03/24 History mcg (1,000 unit) tablet carvedilol 6.25 mg tablet 6.25 mg PO BID stop Metoprolol and 04/01/24 04/03/24 19:00 Rx start this medication #60 tabs dapagliflozin propanediol 10 mg 10 mg PO DAILY #30 tabs 04/29/24 Unknown Rx tablet (Farxiga) multivitamin 1 tab PO DAILY 04/29/24 Unknown History sacubitril 49 mg-valsartan 51 mg 1 tab PO BID #60 tabs 05/15/24 Unknown Rx tablet (Entresto) cephalexin 500 mg capsule 500 mg PO infection 06/06/24 Unknown History doxycycline hyclate 100 mg tablet 100 mg PO Q12H 06/06/24 06/06/24 History Allergy/AdvReac Type Severity Reaction Status Date / Time Kdhlrsk-PMM-LrC Reductase AdvReac Severe Muscle Verified 05/06/24 08:53 Inhibitor (Jikprso-Ljz-Dmq Weakness Reductase Inhibitor) Family History Father Prostate cancer Heart disease Daughter Asthma Mother Aorta aneurysm Surgical History (Updated 05/06/24 @ 08:56 by Jacinda Velez) S/P left inguinal hernia repair Hx of right cataract extraction Hx of left cataract extraction History of right hip replacement (01/19/22) Hx of eye surgery History of right and left heart catheterization (10/19/18) History of tricuspid valve repair (10/23/18) History of facial surgery H/O mitral valve replacement (10/23/18) History of cataract surgery History of right inguinal hernia repair History of umbilical hernia repair Hx of appendectomy Social History Smoking Status: Never smoker alcohol intake: never substance use type: does not use caffeine: Yes what type of physical activity do you participate in: none frequency: does not exercise Vital Signs Vital Signs Vital Signs: 08/29/24 13:05 Temperature 97.3 F L Temperature Source Temporal Pulse Rate 86 Respiratory Rate 20 H Blood Pressure 121/86 H Blood Pressure Mean 97 Blood Pressure Source Monitor Weight Weight: 222 lb 6.819 oz Body Mass Index (BMI) 31.8 Physical Exam Const alert, oriented x3 and no apparent distress General Appearance: cooperative and comfortable HEENT normocephalic, head/scalp atraumatic, hearing grossly normal bilaterally and external ears normal Eyes General Eye: normal appearance of both eyes Neck General: normal visual inspection and trachea midline Resp normal respiratory effort, no retractions and no use of accessory muscles Effort and Inspection: able to speak in complete sentences Cardio regular rate and regular rhythm Extremity Extremity Narrative: trace lower extremity edema Skin Wounds: wounds noted Wound Narrative: R medial calf wound with granular base with moderate slough. There is one small area of increased depth likely where the knife pierced the skin, it does not probe to any tracking, otherwise the rest of the wound is fairly superficial. There is no surrounding erythema, foul odor, significant drainage, focal edema/fluctuance/induration. Neuro oriented x3, CN's II-XII intact bilaterally, moves all extremities, no focal motor deficits and no sensory deficits noted Psych mental status grossly normal, thought process normal, cooperative, affect normal, speech normal and activity/motor behavior normal Debridement Note Debridement Note Wound debrided: Right lower leg Laterality: Right Type of Debridement: Excisional debridement Anesthesia Used: 5% Lidocaine Gel Depth: Down to and including healthy tissue and in the subcutaneous layer Percentage of wound debrided: 100 Instrument Used: 5mm curette Tissue Removed: slough, devitalized tissue Severity: Fat Layer Exposed Amount of bleeding with debridement: Mild Bleeding Controlled with: Pressure Patient tolerated procedure: Patient tolerated procedure well Post-Debridement Measurements and Additional Note: Post-Debridement Measurements/Treatment TAMI - Nurse 1 - General Ulcer Assessment Start: 06/06/24 13:05 Freq: Status: Active Protocol: AHSAN Activity Type Activity Date Activity User E-sign Co-sign Detail Recorded Client Recorded Date Recorded By Document 06/06/24 13:05 GERRI [id number] 06/06/24 13:30 DL 06/06/24 13:05 TAMI - Today's Visit Information Type of service Initial Visit Arrival Mode Ambulatory Transfer Assistance None Patient Identification Verified (Name & Yes ) Patient Requires Transmission-Based No Precautions Height and Weight Height 5 ft 10 in Weight 222 lb 6.819 oz Weight in Pounds 222.4 lbs Body Mass Index (BMI) 31.8 BMI Classification Obese BSA - Leola 2.18 Vital Signs Temperature (97.8 F-99.1 F) 97.3 F L Temperature Source Temporal Pulse Rate (60-100) 86 Pulse Location Monitor Respiratory Rate (12-18) 20 H Respiratory rate source Observation Blood Pressure (90/60-120/80) 121/86 H Blood Pressure Mean 97 Source Monitor History Since Last Visit- (Skip if this is Patient's initial visit) Left Footwear Regular Shoe Right Footwear Regular Shoe Pain Scale: 0-10 Numeric Is Patient Pain Free? Yes Lower Extremity Assessment/ Foot Assessment/ Toe Nail Assessment Left -Polpliteal Pulses Palpable Yes -Posterior Tibial Doppler Multiphasic -Dorsalis Pedis Doppler Multiphasic -Extremity Color Hemosiderin -Hair Growth on Legs No -Hair Growth on Toes No -Temperature of Extremity Warm -Capillary Refill Less than 3 Seconds -Dependent Rubor No -Blanched when Elevated No -Lipodermatosclerosis No -Other Deformity No -Prior Foot Ulcer No -Charcot Joint No -Prior Amputation No -Thick No -Discolored No -Deformed No -Improper Length & Hygeine No Right -Polpliteal Pulses Palpable Yes -Posterior Tibial Doppler Multiphasic -Dorsalis Pedis Doppler Multiphasic -Extremity Color Hemosiderin -Hair Growth on Legs No -Hair Growth on Toes No -Temperature of Extremity Cool -Dependent Rubor No -Blanched when Elevated No -Lipodermatosclerosis No -Foot Assessment Unable to perform due to Altered Mental Status -Other Deformity No -Prior Foot Ulcer No -Charcot Joint No -Prior Amputation No -Thick No -Discolored No -Deformed No -Improper Length & Hygeine No Communication Assessment Preferred language Greek Able to Read Yes Able to Write Yes Communication Tools None Right Hearing Abillity Normal Left Hearing Abillity Normal Visual Assistive Devices Glasses Teaching Assessment Preferences Verbal,Written, Demonstration Barriers to Learning None Readiness To Learn Good Willingness to Engage in Self Management Med Activies Readiness to Engage in Self Management Med Activities Anxiety Level Calm Cooperation Cooperative Perception Coherent Interest in Health Problem Asks Questions Education Importance Acknowledges Need Does Patient Smoke tobacco or other No substances Smoking Status Never smoker Is Patient Diabetic No Functional Assessment Recent Decline in Ability to Perform Denies Any Declines Culture/Mu-Ism/Electronic Musical Instrument Repairer Cultural/Mu-Ism Needs that may affect No Treatment Plan Would you allow our hospital ranch helper to No meet you for the purpose of spiritual/ emotional support? Electronic Musical Instrument Repairer to contact place of baptism No Teaching: Wound Center *Welcome to the Wound Center -Person Taught Patient WC - Nurse 1 - General Ulcer Measurement Start: 06/06/24 13:05 Freq: Status: Active Protocol: Activity Type Activity Date Activity User E-sign Co-sign Detail Recorded Client Recorded Date Recorded By Document 06/06/24 13:05 DL [id number] 06/06/24 13:30 DL 06/06/24 13:05 Wound Center Nurse 1 #1 R Med LE -Current Size (cm) - Length 1.6 -Current Size (cm) - Width 1.5 -Current Size (cm) - Depth 0.2 -Total Square Cm 2.40 -Photo Taken Yes -Exudate Amt Medium -Exudate Type Serosanguineous -Wound Margin Distinct, Outline Attached -Granulation Amt Medium (34-66%) -Granulation Quality Red -Necrosis Amt Medium (34-66%) -Necrotic Tissue Type Adherent Slough -Structure Exposed N/A -Texture (Paige-wound Skin Appearance) Localized Edema ,Scarring -Moisture (Paige-wound Skin Appearance) Dry/Scaly -Color (Paige-wound Skin Appearance) Hemosiderin Staining -Temperature (Paige-wound Skin No Abnormality Appearance) (Pt Warm) -Tenderness on Palpation (Paige-wound No Skin Appearance) -Ulcer Cleansing Not Cleansed -Foul Odor after Cleansing No -Anesthetic Used 5% Lidocaine Gel Right Calf (cm) 38 Right Ankle (cm) 24.5 - Nurse 2 - General Ulcer CM Notes Start: 06/06/24 13:05 Freq: Status: Active Protocol: Activity Type Activity Date Activity User E-sign Co-sign Detail Recorded Client Recorded Date Recorded By Document 06/06/24 13:56 GM [id number] 06/06/24 14:05 06/06/24 13:56 Wound Center Nurse 2 #1 R Med LE -Time 13:56 -Correct Patient Yes -Correct Side, Site, Position Yes -Correct Procedure Yes -Procedure Performed Yes -Type of Procedure Debridement -Clinical Debridement Subcutaneous -Tissue Removed Subcutaneous -Post Debridement (cm) - Length 1.1 -Post Debridement (cm) - Width 1.3 -Post Debridement (cm) - Depth 0.5 -Total Square (Post) (cm) 1.43 -Area of Debridement (cm) - Length 1.1 -Area of Debridement (cm) - Width 1.3 -Total Square (Area) (cm) 1.43 -Tunneling No -Undermining/Tunneling No -Circular Undermining No -Wound/Ulcer Outcome Not Healed -Ulcer Cleansing Rinsed/ Irrigated with Saline -Foul Odor after Cleansing No -Bioengineered Tissue No -Bleeding Controlled with Pressure -Treatment Response Procedure Tolerated Well -Debridement - Subq, 1st 20sq cm Yes Pain Scale: 0-10 Numeric Is Patient Pain Free? Yes - Nurse 3 - General Ulcer D/C NN Start: 06/06/24 13:05 Freq: Status: Active Protocol: Activity Type Activity Date Activity User E-sign Co-sign Detail Recorded Client Recorded Date Recorded By Document 06/06/24 14:18 [id number] 06/06/24 14:19 06/06/24 14:18 Wound Care Center Nurse 3 #1 R Med LE -Ulcer Cleansing Not Cleansed -Foul Odor after Cleansing No -Primary Dressing Applied Mepilex Border, Promogran Gema Matter -Mepilex Border 1 -Promogran Gema Matter 2 Pain Scale: 0-10 Numeric Is Patient Pain Free? Yes - Visit Discharge Discharge Condition Stable Ambulatory Status Ambulatory Transportation Private Auto Clinical Summary of Care Provided Yes Charges/Coding Visit Charges Office Visits / Consults: 37823 OV L3 New 30min Procedures Integumentary 111xxx-113xx: 35593 Inessa subq tissue 20 sq cm/< Assessment/Plan Assessment/Plan (1) Ulcer of right lower leg: CODE(S): L97.919 - Non-pressure chronic ulcer of unspecified part of right lower leg with unspecified severity PLAN: Wound started as a laceration to the R lower leg but has evolved into a nonpressure venous ucleration of the right lower leg with subcutaneous layer exposed PLAN: Plan Debridement was performed as above and he tolerated well. There were no signs/symptoms of infection on exam today so no cultures were obtained. He is advised to complete his current course of antibiotics. For wound care, will apply lightly-moistened Gema, cover with [place]-SAP dressing. With dressing changes, cleanse the area with antibacterial soap and water. He does have hemosiderin deposition on his bilateral lower extremities consistent with venous insufficiency. Pending progress of the wound would consider venous reflux study to further evaluate. Do recommend use of measured compression stockings (20-30mmHg, prescription was provided) daily, leg zbigniew vation at times of rest, and avoidance of idle prolonged sitting/standing when possible. He will return to the wound center in 1 week or sooner as needed.
--- NOTE | 2024-06-12 09:09 | WC ---
PHOTO 06/06/24 RIGHT MEDIAL LE (I)
== END 2024-06-08 23:59 | disposition home or self-care (01) ==
LOC: WC 13:03
PROVIDERS: PCP Family Medicine Geriatric Medicine; Referring Provider Family Medicine Geriatric Medicine; Visit Provider Physician Assistant
DX: L97.212 Non-pressure chronic ulcer of right calf with fat layer exposed (principal); S81.831S Puncture wound without foreign body, right lower leg, sequela; W26.0XXS Contact with knife, sequela; I10 Essential (primary) hypertension; E03.9 Hypothyroidism, unspecified; I36.1 Nonrheumatic tricuspid (valve) insufficiency; I34.0 Nonrheumatic mitral (valve) insufficiency; Z79.890 Hormone replacement therapy; Z79.01 Long term (current) use of anticoagulants; Z79.899 Other long term (current) drug therapy
CPT/HCPCS: 11042; 99213; G0463

== ENCOUNTER 2024-06-27 13:15 | Outpatient (RCR) | payer OTHER, MEDICARE, SELFPAY ==
[2024-06-09 00:35] VITALS: BP 121/86; PULSE 86; RESP 20; TEMP 36.3; BMI 31.8
[2024-06-13 13:21] VITALS: BP 114/67; PULSE 64; RESP 18; TEMP 36.7; BMI 31.8
--- NOTE | 2024-06-13 13:54 | PN.PCM_ITS ---
History of Present Illness Date of Service: 06/13/24 Chief Complaint: R calf wound History of Wound: Mr. Olayinka Guadalupe is a 68 y/o male who presents today for evaluation and management of a R calf wound as referred by Dr. Arce. He reports that at least 4 weeks ago, he accidentally dropped a utility knife and cut his R calf. At first, the wound was quite small, like a puncture but then over the next few weeks continued to enlarge. He developed increased pain and redness and presented to his PCP. He was initiated on antibiotics and referred here. He has one day left on his course of antibiotics. His symptoms have improved and the wound size has remained stable over this last week. Otherwise, he has been caring for this wound at home by applying triple antibiotic ointment and covering with a gauze dressing. He denies any prior history of non-healing wounds. He does have significant hem osiderin deposition in his bilateral lower legs but denies any confirmed venous insufficiency. He denies any history of VTE or varicose veins. He is not a smoker. He is not diabetic. He does not wear compression stockings. 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 Subjective Shukri Bhagat is doing well this week. He did not receive his supplies yet. He did get compression stockings ordered but has not yet received these. His PCP got more culture results back and started him on a 7 day course of Flagyl last week and today was his last day of this. No N/V, F/C, new or worsening redness/drainage/pain/swelling. Objective Data Objective Data Vital Signs: Vital Signs Temp Pulse Resp BP O2 Del Method 98.1 F 64 18 114/67 Room Air 06/13/24 13:21 06/13/24 13:21 06/13/24 13:21 06/13/24 13:21 06/13/24 13:21 Oxygen Delivery Method Room Air Weight: 222 lb 6.819 oz Body Mass Index (BMI) 31.8 Charges/Coding Procedures Integumentary 111xxx-113xx: 19428 Inessa subq tissue 20 sq cm/< Physical Exam Const alert, oriented x3 and no apparent distress General Appearance: cooperative and comfortable HEENT normocephalic, head/scalp atraumatic, hearing grossly normal bilaterally and external ears normal Eyes General Eye: normal appearance of both eyes Neck General: normal visual inspection and trachea midline Resp normal respiratory effort, no retractions and no use of accessory muscles Effort and Inspection: able to speak in complete sentences Cardio regular rate and regular rhythm Extremity Extremity Narrative: trace lower extremity edema Skin Wounds: wounds noted Wound Narrative: R medial calf wound with granular base with moderate slough. There is one small area of increased depth likely where the knife pierced the skin, it does not probe to any tracking, otherwise the rest of the wound is fairly superficial. There is no surrounding erythema, foul odor, significant drainage, focal edema/fluctuance/induration. Neuro oriented x3, CN's II-XII intact bilaterally, moves all extremities, no focal motor deficits and no sensory deficits noted Psych mental status grossly normal, thought process normal, cooperative, affect normal, speech normal and activity/motor behavior normal Debridement Note Debridement Note Wound debrided: Right lower leg Laterality: Right Type of Debridement: Excisional debridement Anesthesia Used: 5% Lidocaine Gel Depth: Down to and including healthy tissue and in the subcutaneous layer Percentage of wound debrided: 100 Instrument Used: 5mm curette Tissue Removed: slough, devitalized tissue Severity: Fat Layer Exposed Amount of bleeding with debridement: Mild Bleeding Controlled with: Pressure Patient tolerated procedure: Patient tolerated procedure well Post-Debridement Measurements and Additional Note: Post-Debridement Measurements/Treatment - Nurse 1 - General Ulcer Assessment Start: 06/13/24 13:20 Freq: Status: Active Protocol: TAMI.SUMMER Activity Type Activity Date Activity User E-sign Co-sign Detail Recorded Client Recorded Date Recorded By Document 06/13/24 13:21 [id number] 06/13/24 13:25 06/13/24 13:21 - Today's Visit Information Type of service Follow-up 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 Yes - Nurse 1 - General Ulcer Measurement Start: 06/13/24 13:20 Freq: Status: Active Protocol: Activity Type Activity Date Activity User E-sign Co-sign Detail Recorded Client Recorded Date Recorded By Document 06/13/24 13:21 [id number] 06/13/24 13:25 06/13/24 13:21 Wound Center Nurse 1 #1 R Med LE -Current Size (cm) - Length 1.1 -Current Size (cm) - Width 1.1 -Current Size (cm) - Depth 0.3 -Total Square Cm 1.21 -Exudate Amt Small -Exudate Type Serosanguineous -Wound Margin Distinct, Outline Attached -Granulation Amt Small (1-33%) -Granulation Quality Red -Necrosis Amt Medium (34-66%) -Necrotic Tissue Type Adherent Slough -Texture (Paige-wound Skin Appearance) Assessed -Moisture (Paige-wound Skin Appearance) Assessed -Color (Paige-wound Skin Appearance) Assessed, Erythema -Temperature (Paige-wound Skin No Abnormality Appearance) (Pt Warm) -Tenderness on Palpation (Paige-wound No Skin Appearance) -Ulcer Cleansing Rinsed/ Irrigated with Saline -Foul Odor after Cleansing No -Anesthetic Used 5% Lidocaine Gel WC - Nurse 2 - General Ulcer CM Notes Start: 06/13/24 13:20 Freq: Status: Active Protocol: Activity Type Activity Date Activity User E-sign Co-sign Detail Recorded Client Recorded Date Recorded By Document 06/13/24 13:29 [facility] [id number] 06/13/24 13:34 [facility] 06/13/24 13:29 Wound Center Nurse 2 -Time 13:29 -Correct Patient Yes -Correct Side, Site, Position Yes -Correct Procedure Yes -Procedure Performed Yes -Type of Procedure Debridement -Clinical Debridement Subcutaneous -Tissue Removed Subcutaneous -Post Debridement (cm) - Length 1.3 -Post Debridement (cm) - Width 1.1 -Post Debridement (cm) - Depth 0.4 -Total Square (Post) (cm) 1.43 -Area of Debridement (cm) - Length 1.3 -Area of Debridement (cm) - Width 1.1 -Total Square (Area) (cm) 1.43 -Tunneling No -Undermining/Tunneling No -Circular Undermining No -Wound/Ulcer Outcome Not Healed -Ulcer Cleansing Rinsed/ Irrigated with Saline -Foul Odor after Cleansing No -Bioengineered Tissue No -Bleeding Controlled with Pressure -Treatment Response Procedure Tolerated Well -Debridement - Subq, 1st 20sq cm Yes Pain Scale: 0-10 Numeric Is Patient Pain Free? Yes - Nurse 3 - General Ulcer D/C NN Start: 06/13/24 13:20 Freq: Status: Active Protocol: Activity Type Activity Date Activity User E-sign Co-sign Detail Recorded Client Recorded Date Recorded By Document 06/13/24 13:50 [facility] [id number] 06/13/24 13:51 [facility] 06/13/24 13:50 Wound Care Center Nurse 3 #1 R Med LE -Ulcer Cleansing Rinsed/ Irrigated with Saline -Foul Odor after Cleansing No -Primary Dressing Applied Mepilex Border, Promogran Gema Matter -Mepilex Border 1 -Promogran Gema Matter 1 ble -Tubular Bandage Single Layer -Size of Tubigrip Used Size D -Size D ($) 2 Treatment Response Procedure Tolerated Well Pain Scale: 0-10 Numeric Is Patient Pain Free? Yes - Visit Discharge Discharge Condition Stable Ambulatory Status Ambulatory Transportation Private Auto Assessment/Plan Assessment/Plan (1) Ulcer of right lower leg: CODE(S): L97.919 - Non-pressure chronic ulcer of unspecified part of right lower leg with unspecified severity PLAN: Wound started as a laceration to the R lower leg but has evolved into a nonpressure venous ucleration of the right lower leg with subcutaneous layer exposed PLAN: Plan Debridement was performed as above and he tolerated well. There were no signs/symptoms of infection on exam today. For wound care, continue to apply lightly-moistened Gema, cover with [place]-SAP dressing. With dressing changes, cleanse the area with antibacterial soap and water. He does have hemosiderin deposition on his bilateral lower extremities consistent with venous insufficiency. Pending progress of the wound would consider venous reflux study to further evaluate. Do recommend use of measured compression stockings (20-30mmHg, prescription was provided) daily, leg elevation at times of rest, and avoidance of idle prolonged sitting/standing when possible. Until he receives his compression stockings, will use high- strength single layer Tubigrips for compression. He will return to the wound center in 1 week or sooner as needed.
[2024-06-20 13:21] VITALS: BP 127/76; PULSE 63; RESP 18; TEMP 36.6; BMI 31.8
--- NOTE | 2024-06-20 14:08 | PCM.WC.PN ---
History of Present Illness Date of Service: 06/20/24 Chief Complaint: R calf wound History of Wound: Mr. Olayinka Guadalupe is a 68 y/o male who presents today for evaluation and management of a R calf wound as referred by Dr. Arce. He reports that at least 4 weeks ago, he accidentally dropped a utility knife and cut his R calf. At first, the wound was quite small, like a puncture but then over the next few weeks continued to enlarge. He developed increased pain and redness and presented to his PCP. He was initiated on antibiotics and referred here. He has one day left on his course of antibiotics. His symptoms have improved and the wound size has remained stable over this last week. Otherwise, he has been caring for this wound at home by applying triple antibiotic ointment and covering with a gauze dressing. He denies any prior history of non-healing wounds. He does have significant hemosiderin deposition in his bilateral lower legs but denies any confirmed venous insufficiency. He denies any history of VTE or varicose veins. He is not a smoker. He is not diabetic. He does not wear compression stockings. 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 Subjective Subjective Patient did receive his supplies last week and all appear correct. He has been doing well with wound care. He also received his compression stockings earlier this week and has been wearing them for the last 3 days. He is still struggling a bit with getting them on and off, but feels he is getting the hang of it. So far they are tolerable to wear. Objective Data Objective Data Vital Signs: Vital Signs Temp Pulse Resp BP O2 Del Method 97.8 F 631 H 18 127/76 H Room Air 06/20/24 13:21 06/20/24 13:21 06/20/24 13:21 06/20/24 13:21 06/13/24 13:21 Oxygen Delivery Method Room Air Weight: 222 lb 6.819 oz Body Mass Index (BMI) 31.8 Charges/Coding Procedures Integumentary 111xxx-113xx: 85098 Inessa subq tissue 20 sq cm/< Physical Exam Const alert, oriented x3 and no apparent distress General Appearance: cooperative and comfortable HEENT normocephalic, head/scalp atraumatic, hearing grossly normal bilaterally and external ears normal Eyes General Eye: normal appearance of both eyes Neck General: normal visual inspection and trachea midline Resp normal respiratory effort, no retractions and no use of accessory muscles Effort and Inspection: able to speak in complete sentences Cardio regular rate and regular rhythm Extremity Extremity Narrative: trace lower extremity edema Skin Wounds: wounds noted Wound Narrative: R medial calf wound with granular base with moderate slough. There is one small area of increased depth likely where the knife pierced the skin, it does not probe to any tracking, otherwise the rest of the wound is fairly superficial. There is no surrounding erythema, foul odor, significant drainage, focal edema/fluctuance/induration. Neuro oriented x3, CN's II-XII intact bilaterally, moves all extremities, no focal motor deficits and no sensory deficits noted Psych mental status grossly normal, thought process normal, cooperative, affect normal, speech normal and activity/motor behavior normal Debridement Note Debridement Note Wound debrided: Right lower leg Laterality: Right Type of Debridement: Excisional debridement Anesthesia Used: 5% Lidocaine Gel Depth: Down to and including healthy tissue and in the subcutaneous layer Percentage of wound debrided: 100 Instrument Used: 5mm curette Tissue Removed: slough, devitalized tissue Severity: Fat Layer Exposed Amount of bleeding with debridement: Mild Bleeding Controlled with: Pressure Patient tolerated procedure: Patient tolerated procedure well Post-Debridement Measurements and Additional Note: Post-Debridement Measurements/Treatment - Nurse 1 - General Ulcer Assessment Start: 06/13/24 13:20 Freq: Status: Active Protocol: [facility] Activity Type Activity Date Activity User E-sign Co-sign Detail Recorded Client Recorded Date Recorded By Document 06/13/24 13:21 KW [id number] 06/13/24 13:25 KW Document 06/20/24 13:21 DL [id number] 06/20/24 13:28 DL 06/13/24 06/20/24 13:21 13:21 - Today's Visit Information Type of service Follow-up Visit Follow-up Visit (Physician/CERTIFIED PERSONAL TRAINER (Physician/CERTIFIED PERSONAL TRAINER ) ) Arrival Mode Ambulatory Ambulatory Transfer Assistance None Patient Identification Verified (Name & Yes Yes ) Patient Requires Transmission-Based No Precautions Height and Weight Body Mass Index (BMI) 31.8 31.8 BMI Classification Obese Obese Vital Signs Temperature (97.8 F-99.1 F) 98.1 F 97.8 F Temperature Source Temporal Temporal Pulse Rate (60-100) 64 631 H Pulse Location Monitor Respiratory Rate (12-18) 18 18 Respiratory rate source Observation Observation Oxygen Delivery Method Room Air Blood Pressure (90/60-120/80) 114/67 127/76 H Blood Pressure Mean (mm Hg) 82 93 Source Monitor Position Semi-Fowlers Blood Pressure Location Left Arm History Since Last Visit- (Skip if this is Patient's initial visit) Have you changed medications since your No last visit? Any new allergies or adverse reactions No Had a fall/change in ADL's that may No increase risk of falls Signs or symptoms of abuse and/or No neglect since last visit Have you been in the hospital since your No last visit? Has dressing in place as prescribed Yes Has compression in place as prescribed Yes Has offloadiing in place as prescribed N/A Experienced any changes in pain level or No management Pain Scale: 0-10 Numeric Is Patient Pain Free? Yes Yes WC - Nurse 1 - General Ulcer Measurement Start: 06/13/24 13:20 Freq: Status: Active Protocol: Activity Type Activity Date Activity User E-sign Co-sign Detail Recorded Client Recorded Date Recorded By Document 06/13/24 13:21 KW [id number] 06/13/24 13:25 KW Document 06/20/24 13:21 DL [id number] 06/20/24 13:28 DL 06/13/24 06/20/24 13:21 13:21 Wound Center Nurse 1 #1 R Med LE -Current Size (cm) - Length 1.1 1.1 -Current Size (cm) - Width 1.1 1.1 -Current Size (cm) - Depth 0.3 0.1 -Total Square Cm 1.21 1.21 -Exudate Amt Small Medium -Exudate Type Serosanguineous Serosanguineous -Wound Margin Distinct, Distinct, Outline Outline Attached Attached -Granulation Amt Small (1-33%) Medium (34-66%) -Granulation Quality Red Red -Necrosis Amt Medium (34-66%) Medium (34-66%) -Necrotic Tissue Type Adherent Slough Adherent Slough -Structure Exposed N/A -Texture (Paige-wound Skin Appearance) Assessed Scarring -Moisture (Paige-wound Skin Appearance) Assessed Dry/Scaly -Color (Paige-wound Skin Appearance) Assessed, Hemosiderin Erythema Staining -Temperature (Paige-wound Skin No Abnormality No Abnormality Appearance) (Pt Warm) (Pt Warm) -Tenderness on Palpation (Paige-wound No Skin Appearance) -Ulcer Cleansing Rinsed/ Rinsed/ Irrigated with Irrigated with Saline Saline -Foul Odor after Cleansing No No -Anesthetic Used 5% Lidocaine 5% Lidocaine Gel Gel Right Calf (cm) 38.5 Right Ankle (cm) 22 WC - Nurse 2 - General Ulcer CM Notes Start: 06/13/24 13:20 Freq: Status: Active Protocol: Activity Type Activity Date Activity User E-sign Co-sign Detail Recorded Client Recorded Date Recorded By Document 06/13/24 13:29 [facility] [id number] 06/13/24 13:34 [facility] Document 06/20/24 13:39 [facility] [id number] 06/20/24 13:45 [facility] 06/13/24 06/20/24 13:29 13:39 Wound Center Nurse 2 #1 R Med LE -Time 13:29 13:39 -Correct Patient Yes Yes -Correct Side, Site, Position Yes Yes -Correct Procedure Yes Yes -Procedure Performed Yes Yes -Type of Procedure Debridement Debridement -Clinical Debridement Subcutaneous Subcutaneous -Tissue Removed Subcutaneous Subcutaneous -Post Debridement (cm) - Length 1.3 1.2 -Post Debridement (cm) - Width 1.1 1.1 -Post Debridement (cm) - Depth 0.4 3.5 -Total Square (Post) (cm) 1.43 1.32 -Area of Debridement (cm) - Length 1.3 1.2 -Area of Debridement (cm) - Width 1.1 1.1 -Total Square (Area) (cm) 1.43 1.32 -Tunneling No No -Undermining/Tunneling No No -Circular Undermining No No -Wound/Ulcer Outcome Not Healed Not Healed -Ulcer Cleansing Rinsed/ Rinsed/ Irrigated with Irrigated with Saline Saline -Foul Odor after Cleansing No No -Bioengineered Tissue No No -Bleeding Controlled with Pressure Pressure -Treatment Response Procedure Procedure Tolerated Well Tolerated Well -Debridement - Subq, 1st 20sq cm Yes Yes Pain Scale: 0-10 Numeric Is Patient Pain Free? Yes Yes - Nurse 3 - General Ulcer D/C NN Start: 06/13/24 13:20 Freq: Status: Active Protocol: Activity Type Activity Date Activity User E-sign Co-sign Detail Recorded Client Recorded Date Recorded By Document 06/13/24 13:50 [facility] [id number] 06/13/24 13:51 [facility] Document 06/20/24 14:01 DL [id number] 06/20/24 14:01 DL 06/13/24 06/20/24 13:50 14:01 Wound Care Center Nurse 3 #1 R Med LE -Ulcer Cleansing Rinsed/ Rinsed/ Irrigated with Irrigated with Saline Saline -Foul Odor after Cleansing No No -Primary Dressing Applied Mepilex Border, Mepilex Border, Promogran Promogran Gema Matter Gema Matter -Mepilex Border 1 1 -Promogran Gema Matter 1 1 ble -Tubular Bandage Single Layer -Size of Tubigrip Used Size D -Size D ($) 2 -Stockings Yes Treatment Response Procedure Procedure Tolerated Well Tolerated Well Pain Scale: 0-10 Numeric Is Patient Pain Free? Yes Yes WC - Visit Discharge Discharge Condition Stable Stable Ambulatory Status Ambulatory Ambulatory Transportation Private Auto Private Auto Assessment/Plan Assessment/Plan (1) Ulcer of right lower leg: CODE(S): L97.919 - Non-pressure chronic ulcer of unspecified part of right lower leg with unspecified severity PLAN: Wound started as a laceration to the R lower leg but has evolved into a nonpressure venous ucleration of the right lower leg with subcutaneous layer exposed PLAN: Plan Debridement was performed as above and he tolerated well. There were no signs/symptoms of infection on exam today. Size has been stagnant over the last few weeks, if no significant improvement next week and will consider further venous evaluation and also potentially skin substitute. For wound care, continue to apply lightly-moistened Gema, cover with [place]-SAP dressing. With dressing changes, cleanse the area with antibacterial soap and water. He does have hemosiderin deposition on his bilateral lower extremities consistent with venous insufficiency. Pending progress of the wound would consider venous reflux study to further evaluate. Do recommend use of measured compression stockings (20-30mmHg, prescription was provided) daily, leg elevation at times of rest, and avoidance of idle prolonged sitting/standing when possible. Until he receives his compression stockings, will use high-strength single layer Tubigrips for compression. He will return to the wound center in 1 week or sooner as needed.
[2024-06-27 13:09] VITALS: BP 123/77; PULSE 67; RESP 18; TEMP 36.7; BMI 31.8
--- NOTE | 2024-06-27 13:37 | PN.PCM_ITS ---
History of Present Illness Date of Service: 06/27/24 Chief Complaint: R calf wound History of Wound: Mr. Olayinka Guadalupe is a 68 y/o male who presents today for evaluation and management of a R calf wound as referred by Dr. Arce. He reports that at least 4 weeks ago, he accidentally dropped a utility knife and cut his R calf. At first, the wound was quite small, like a puncture but then over the next few weeks continued to enlarge. He developed increased pain and redness and presented to his PCP. He was initiated on antibiotics and referred here. He has one day left on his course of antibiotics. His symptoms have improved and the wound size has remained stable over this last week. Otherwise, he has been caring for this wound at home by applying triple antibiotic ointment and covering with a gauze dressing. He denies any prior history of non-healing wounds. He does have significant hem osiderin deposition in his bilateral lower legs but denies any confirmed venous insufficiency. He denies any history of VTE or varicose veins. He is not a smoker. He is not diabetic. He does not wear compression stockings. 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 Shukri Bhagat is doing well today. He thinks his wound is looking smaller. He has continued to utilize his measured compression stockings as instructed. He has also been making a focused effort to increase his protein and be conscientious about his dietary choices. Objective Data Objective Data Vital Signs: Vital Signs Temp Pulse Resp BP O2 Del Method 98.0 F 67 18 123/77 H Room Air 06/27/24 13:06/27/24 13:06/27/24 13:06/27/24 13:06/27/24 13:09 Oxygen Delivery Method Room Air Weight: 222 lb 6.819 oz Body Mass Index (BMI) 31.8 Charges/Coding Procedures Integumentary 111xxx-113xx: [id number] Inessa subq tissue 20 sq cm/< Physical Exam Const alert, oriented x3 and no apparent distress General Appearance: cooperative and comfortable HEENT normocephalic, head/scalp atraumatic, hearing grossly normal bilaterally and external ears normal Eyes General Eye: normal appearance of both eyes Neck General: normal visual inspection and trachea midline Resp normal respiratory effort, no retractions and no use of accessory muscles Effort and Inspection: able to speak in complete sentences Extremity Extremity Narrative: trace lower extremity edema Skin Wounds: wounds noted Wound Narrative: R medial calf wound with granular base with moderate slough. There is one small area of increased depth likely where the knife pierced the skin, it does not probe to any tracking, otherwise the rest of the wound is fairly superficial. There is no surrounding erythema, foul odor, significant drainage, focal edema/fluctuance/induration. Neuro oriented x3, moves all extremities and no focal motor deficits Psych mental status grossly normal, thought process normal, cooperative, affect normal, speech normal and activity/motor behavior normal Debridement Note Debridement Note Wound debrided: Right lower leg Laterality: Right Type of Debridement: Excisional debridement Anesthesia Used: 5% Lidocaine Gel Depth: Down to and including healthy tissue and in the subcutaneous layer Percentage of wound debrided: 100 Instrument Used: 5mm curette Tissue Removed: slough, devitalized tissue Severity: Fat Layer Exposed Amount of bleeding with debridement: Mild Bleeding Controlled with: Pressure Patient tolerated procedure: Patient tolerated procedure well Post-Debridement Measurements and Additional Note: Post-Debridement Measurements/Treatment - Nurse 1 - General Ulcer Assessment Start: 06/13/24 13:20 Freq: Status: Active Protocol: AHSAN Activity Type Activity Date Activity User E-sign Co-sign Detail Recorded Client Recorded Date Recorded By Document 06/13/24 13:21 KW [id number] 06/13/24 13:25 KW Document 06/20/24 13:21 DL [id number] 06/20/24 13:28 DL Edit Result 06/20/24 13:21 DL (1) [id number] 06/20/24 14:11 BMF Document 06/27/24 13:09 KW [id number] 06/27/24 13:15 KW (1) Pulse Rate (60-100) 631 H => 63 Pulse Location => Monitor 06/13/24 06/20/24 06/27/24 13:21 13:21 13:09 - Today's Visit Information Type of service Follow-up Visit Follow-up Visit Follow-up Visit (Physician/IP/MOSAIC TECHNICIAN (Physician/IP/MOSAIC TECHNICIAN (Physician/IP/MOSAIC TECHNICIAN ) ) ) Arrival Mode Ambulatory Ambulatory Ambulatory Transfer Assistance None Patient Identification Verified (Name & Yes Yes Yes ) Patient Requires Transmission-Based No Precautions Height and Weight Body Mass Index (BMI) 31.8 31.8 31.8 BMI Classification Obese Obese Obese Vital Signs Temperature (97.8 F-99.1 F) 98.1 F 97.8 F 98.0 F Temperature Source Temporal Temporal Temporal Pulse Rate (60-100) 64 63 67 Pulse Location Monitor Monitor Monitor Respiratory Rate (12-18) 18 18 18 Respiratory rate source Observation Observation Observation Oxygen Delivery Method Room Air Room Air Blood Pressure (90/60-120/80) 114/67 127/76 H 123/77 H Blood Pressure Mean (mm Hg) 82 93 92 Source Monitor Monitor Position Semi-Fowlers Semi-Fowlers Blood Pressure Location Left Arm Left Arm History Since Last Visit- (Skip if this is Patient's initial visit) Have you changed medications since your No No last visit? Any new allergies or adverse reactions No No Had a fall/change in ADL's that may No No increase risk of falls Signs or symptoms of abuse and/or No No neglect since last visit Have you been in the hospital since your No No last visit? Has dressing in place as prescribed Yes Yes Has compression in place as prescribed Yes Yes Has offloadiing in place as prescribed N/A N/A Experienced any changes in pain level or No No management Left Footwear Regular Shoe Right Footwear Regular Shoe Pain Scale: 0-10 Numeric Is Patient Pain Free? Yes Yes Yes WC - Nurse 1 - General Ulcer Measurement Start: 06/13/24 13:20 Freq: Status: Active Protocol: Activity Type Activity Date Activity User E-sign Co-sign Detail Recorded Client Recorded Date Recorded By Document 06/13/24 13:21 KW [id number] 06/13/24 13:25 KW Document 06/20/24 13:21 DL [id number] 06/20/24 13:28 DL Document 06/27/24 13:09 KW [id number] 06/27/24 13:15 KW 06/13/24 06/20/24 06/27/24 13:21 13:21 13:09 Wound Center Nurse 1 #1 R Med LE -Current Size (cm) - Length 1.1 1.1 1 -Current Size (cm) - Width 1.1 1.1 0.8 -Current Size (cm) - Depth 0.3 0.1 0.3 -Total Square Cm 1.21 1.21 0.8 -Exudate Amt Small Medium Small -Exudate Type Serosanguineous Serosanguineous Serosanguineous -Wound Margin Distinct, Distinct, Distinct, Outline Outline Outline Attached Attached Attached -Granulation Amt Small (1-33%) Medium (34-66%) Medium (34-66%) -Granulation Quality Red Red Red -Necrosis Amt Medium (34-66%) Medium (34-66%) Small (1-33%) -Necrotic Tissue Type Adherent Slough Adherent Slough Adherent Slough -Structure Exposed N/A -Texture (Paige-wound Skin Appearance) Assessed Scarring Assessed -Moisture (Paige-wound Skin Appearance) Assessed Dry/Scaly Assessed -Color (Paige-wound Skin Appearance) Assessed, Hemosiderin Assessed Erythema Staining -Temperature (Paige-wound Skin No Abnormality No Abnormality No Abnormality Appearance) (Pt Warm) (Pt Warm) (Pt Warm) -Tenderness on Palpation (Paige-wound No No Skin Appearance) -Ulcer Cleansing Rinsed/ Rinsed/ Rinsed/ Irrigated with Irrigated with Irrigated with Saline Saline Saline -Foul Odor after Cleansing No No No -Anesthetic Used 5% Lidocaine 5% Lidocaine 5% Lidocaine Gel Gel Gel Right Calf (cm) 38.5 Right Ankle (cm) 22 WC - Nurse 2 - General Ulcer CM Notes Start: 06/13/24 13:20 Freq: Status: Active Protocol: Activity Type Activity Date Activity User E-sign Co-sign Detail Recorded Client Recorded Date Recorded By Document 06/13/24 13:29 [facility] [id number] 06/13/24 13:34 [facility] Document 06/20/24 13:39 [facility] [id number] 06/20/24 13:45 [facility] Document 06/27/24 13:20 [id number] 06/27/24 13:23 06/13/24 06/20/24 06/27/24 13:29 13:39 13:20 Wound Center Nurse 2 #1 R Med LE -Time 13:29 13:39 13:21 -Correct Patient Yes Yes Yes -Correct Side, Site, Position Yes Yes Yes -Correct Procedure Yes Yes Yes -Procedure Performed Yes Yes Yes -Type of Procedure Debridement Debridement Debridement -Clinical Debridement Subcutaneous Subcutaneous Subcutaneous -Tissue Removed Subcutaneous Subcutaneous Subcutaneous -Post Debridement (cm) - Length 1.3 1.2 1.0 -Post Debridement (cm) - Width 1.1 1.1 0.9 -Post Debridement (cm) - Depth 0.4 3.5 0.3 -Total Square (Post) (cm) 1.43 1.32 0.90 -Area of Debridement (cm) - Length 1.3 1.2 1.0 -Area of Debridement (cm) - Width 1.1 1.1 0.9 -Total Square (Area) (cm) 1.43 1.32 0.90 -Tunneling No No No -Undermining/Tunneling No No No -Circular Undermining No No No -Wound/Ulcer Outcome Not Healed Not Healed Not Healed -Ulcer Cleansing Rinsed/ Rinsed/ Rinsed/ Irrigated with Irrigated with Irrigated with Saline Saline Saline -Foul Odor after Cleansing No No No -Bioengineered Tissue No No No -Bleeding Controlled with Pressure Pressure Pressure -Treatment Response Procedure Procedure Procedure Tolerated Well Tolerated Well Tolerated Well -Debridement - Subq, 1st 20sq cm Yes Yes Yes Pain Scale: 0-10 Numeric Is Patient Pain Free? Yes Yes Yes - Nurse 3 - General Ulcer D/C NN Start: 06/13/24 13:20 Freq: Status: Active Protocol: Activity Type Activity Date Activity User E-sign Co-sign Detail Recorded Client Recorded Date Recorded By Document 06/13/24 13:50 [facility] [id number] 06/13/24 13:51 [facility] Document 06/20/24 14:01 DL [id number] 06/20/24 14:01 DL Document 06/27/24 13:24 [id number] 06/27/24 13:25 06/13/24 06/20/24 06/27/24 13:50 14:01 13:24 Wound Care Center Nurse 3 #1 R Med LE -Ulcer Cleansing Rinsed/ Rinsed/ Not Cleansed Irrigated with Irrigated with Saline Saline -Foul Odor after Cleansing No No No -Primary Dressing Applied Mepilex Border, Mepilex Border, Mepilex Border, Promogran Promogran Promogran Gema Matter Gema Matter Gema Matter -Mepilex Border 1 1 1 -Promogran Gema Matter 1 1 1 ble -Tubular Bandage Single Layer -Size of Tubigrip Used Size D -Size D ($) 2 -Stockings Yes Treatment Response Procedure Procedure Tolerated Well Tolerated Well Pain Scale: 0-10 Numeric Is Patient Pain Free? Yes Yes Yes - Visit Discharge Discharge Condition Stable Stable Stable Ambulatory Status Ambulatory Ambulatory Ambulatory Transportation Private Auto Private Auto Private Auto Assessment/Plan Assessment/Plan (1) Ulcer of right lower leg: CODE(S): L97.919 - Non-pressure chronic ulcer of unspecified part of right lower leg with unspecified severity PLAN: Wound started as a laceration to the R lower leg but has evolved into a nonpressure venous ucleration of the right lower leg with subcutaneous layer exposed PLAN: Plan Debridement was performed as above and he tolerated well. There were no signs/symptoms of infection on exam today. Size and depth are modestly improved this week. For wound care, continue to apply lightly-moistened Gema, cover with Melvin-SAP dressing. With dressing changes, cleanse the area with antibacterial soap and water. He does have hemosiderin deposition on his bilateral lower extremities consistent with venous insufficiency. Pending progress of the wound would consider venous reflux study to further evaluate, at this time patient wishes to defer. He will continue use of measured compression stockings (20-30mmHg, prescription was provided) daily, leg elevation at times of rest, and avoidance of idle prolonged sitting/standing when possible. He will return to the wound center in 2 weeks or sooner as needed.
== END 2024-07-08 23:59 | disposition home or self-care (01) ==
LOC: WC 13:15
PROVIDERS: PCP Family Medicine Geriatric Medicine; Referring Provider Family Medicine Geriatric Medicine; Visit Provider Physician Assistant
DX: L97.212 Non-pressure chronic ulcer of right calf with fat layer exposed (principal); S81.831S Puncture wound without foreign body, right lower leg, sequela; W26.0XXS Contact with knife, sequela; Z79.01 Long term (current) use of anticoagulants; Z79.899 Other long term (current) drug therapy
CPT/HCPCS: 11042

== ENCOUNTER 2024-07-02 14:55 | Inpatient (IN) | payer OTHER, MEDICARE, SELFPAY ==
[2024-07-02] VITALS (9 sets, daily range): BP systolic 102–135; BP diastolic 70–96; PULSE 74–81; RESP 16–22; TEMP 36.3–37; O2SAT 90–98; BMI 21.9; BMI 31.1
--- NOTE | 2024-07-02 15:15 | CT_ITS ---
STUDY: CT BRAIN WITHOUT CONTRAST REASON FOR EXAM: Male, 68 years old. head injury RADIATION DOSAGE (If Supplied By Facility): CTDIvol = ( 44.99 ) mGy, DLP = ( 796.11 ) mGycm TECHNIQUE: Transaxial CT imaging of the brain was performed without administration of intravenous contrast material. Individualized dose optimization techniques were used for this CT. COMPARISON: 05/22/2019 FINDINGS: Skin ramiro are seen repairing a right posterior scalp laceration. Normal calvarium. Normal size ventricles and extra-axial spaces for the patient''s age. There are areas of decreased attenuation within the white matter tracts of the supratentorial brain, consistent with microvascular disease changes. Normal basal ganglia and thalami. Normal brainstem. Normal cerebellum. There is no intracranial hemorrhage. There are no findings of an acute ischemic infarction. There is a 2.2 cm left maxillary mucus retention cyst or polyp, improved since prior exam. CT/Brain/Head without Contrast IMPRESSION: Chronic involutional changes of the brain. No acute abnormality of the brain. Electronically Signed: Nathaniel Guzman MD at 16:51 EDT ,
--- NOTE | 2024-07-02 15:15 | EKG12_ITS ---
Test Reason : FALL Blood Pressure : / mmHG Vent. Rate : 076 BPM Atrial Rate : 076 BPM P-R Int : 180 ms QRS Dur : 106 ms QT Int : 380 ms P-R-T Axes : 040 006 -05 degrees QTc Int : 427 ms Normal sinus rhythm Nonspecific T wave abnormality Abnormal ECG Confirmed by Adrián Barnett ([id number]), pictures editor ARASH AN ([id number]) on 07/03/2024 10:32:46 AM Referred By: TL Confirmed By:Adrián Barnett
--- NOTE | 2024-07-02 15:17 | EX.ED.DYSGE1 ---
HPI History of Present Illness Chief Complaint: Syncope Informant: patient and other Narrative Narrative: Presents here with private vehicle with his boss from work for syncopal episode head injury. He states going up 2 flights of stairs was short of breath had chest tightness he did not get back to his dad's he was on the ground. Head injury with scalp lack. Denies recent cough. Denies recent travel or surgeries. History of pulmonary embolism taken off anticoagulants a year ago. He states combination from infection with history of reported autoimmune issues with vasculitis at that time. No current chest pains. He has had valve repair in the past in 2019. Denies COPD or asthma history. Tetanus is unknown. 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 Non-rheumatic tricuspid valve insufficiency Nonrheumatic mitral (valve) insufficiency Nonrheumatic mitral (valve) prolapse Hydronephrosis Lung nodule History of pulmonary embolus (PE) (11/02/17) Essential hypertension Anemia 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) Compound heterozygous MTHFR mutation 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 Hypoalbuminemia Gastritis Weight loss, unintentional Hypothyroid DDD (degenerative disc disease), lumbar Segmental and somatic dysfunction of pelvic region Segmental and somatic dysfunction of lumbar region Umbilical hernia without mention of obstruction or gangrene Home Medications ?Medication ?Instructions ?Recorded ?Last Taken ?Type fluticasone propionate 50 1 spray NASAL BID PRN Allergies 12/13/18 Unknown History mcg/actuation nasal spray,suspension prednisolone acetate (PF) 1 % eye 1 drp LEFT EYE QHS 06/15/20 07/01/24 History drops,suspension levothyroxine 50 mcg tablet 50 mcg PO DAILY 08/27/21 07/02/24 History cholecalciferol (vitamin D3) 25 25 mcg PO DAILY 03/21/23 07/02/24 History mcg (1,000 unit) tablet carvedilol 6.25 mg tablet 6.25 mg PO BID stop Metoprolol and 04/01/24 07/02/24 Rx start this medication #60 tabs dapagliflozin propanediol 10 mg 10 mg PO DAILY #30 tabs 04/29/24 07/02/24 Rx tablet (Farxiga) multivitamin 1 tab PO DAILY 04/29/24 07/02/24 History sacubitril 49 mg-valsartan 51 mg 1 tab PO BID #60 tabs 05/15/24 07/02/24 Rx tablet (Entresto) Allergy/AdvReac Type Severity Reaction Status Date / Time Oqpzkuk-KEW-JlA Reductase AdvReac Severe Muscle Verified 07/02/24 14:56 Inhibitor (Wskklgm-Bdb-Lni Weakness Reductase Inhibitor) Family History Father Prostate cancer Heart disease Daughter Asthma Mother Aorta aneurysm Surgical History S/P left inguinal hernia repair Hx of right cataract extraction Hx of left cataract extraction History of right hip replacement (01/19/22) Hx of eye surgery History of right and left heart catheterization (10/19/18) History of tricuspid valve repair (10/23/18) History of facial surgery H/O mitral valve replacement (10/23/18) History of cataract surgery History of right inguinal hernia repair History of umbilical hernia repair Hx of appendectomy Social History Smoking Status: Never smoker alcohol intake: never substance use type: does not use caffeine: Yes what type of physical activity do you participate in: none frequency: does not exercise ROS ROS ED Constitutional Constitutional ED: Denies chills, fever(s) or sweats Eyes Eyes: Denies change in vision ENT ENT ED: Denies dysphagia or sore throat Cardiovascular Cardiovascular: Reports chest pain and other Details: Syncope ; Denies leg edema, palpitations or racing heartbeat Respiratory/Chest Respiratory/Chest: Reports dyspnea and dyspnea on exertion; Denies cough Gastrointestinal Gastrointestinal: Denies abdominal pain, diarrhea, nausea or vomiting Genitourinary Genitourinary ED: Denies dysuria, hematuria or urinary frequency Musculoskeletal Musculoskeletal: Denies back pain, extremity pain or neck pain Integumentary Reports wounds; Denies rash Neurologic Neurologic: Denies headache(s), paresthesias or weakness EXAM Physical Exam Const Vital Signs: 07/02/24 14:56 07/02/24 15:25 07/02/24 15:55 Temperature 98.6 F Temperature Source Temporal Pulse Rate 78 81 Respiratory Rate 16 16 Respiratory Effort Normal Respiratory Pattern Normal Blood Pressure 135/96 H 118/86 H Blood Pressure Mean 109 96 Pulse Ox 91 97 Oxygen Delivery Method Room Air Room Air 07/02/24 16:00 07/02/24 16:59 07/02/24 18:00 Temperature Temperature Source Pulse Rate 74 81 74 Respiratory Rate 22 H 21 H Respiratory Effort Respiratory Pattern Blood Pressure 122/89 H 120/90 H 102/70 Blood Pressure Mean 100 100 80 Pulse Ox 90 91 98 Oxygen Delivery Method Room Air Room Air 07/02/24 19:00 Temperature Temperature Source Pulse Rate 74 Respiratory Rate 16 Respiratory Effort Respiratory Pattern Blood Pressure 117/92 H Blood Pressure Mean 100 Pulse Ox 97 Oxygen Delivery Method Room Air Positive well nourished and well developed Constitutional Narrative: GCS 15 General Appearance ED: well developed and NAD HEENT Reports moist mucous membranes HEENT Narrative: A 2 cm horizontal laceration to the crown of the scalp with minimal bleeding. normocephalic Eyes EOMs intact bilaterally and conjunctivae normal General Eye ED: Yes normal appearance of both eyes Neck no lymphadenopathy and supple General: Negative for tenderness Chest Wall inspection of chest normal and palpation of chest normal Chest: Negative for tenderness Resp normal respiratory effort and normal air movement Effort and Inspection: symmetric chest movement; Negative for respiratory distress Cardio regular rate, regular rhythm and no murmurs Peripheral Pulses: pulses 2+ throughout GI normal to inspection, nondistended, normoactive bowel sounds and non-tender Palpation: Negative for guarding or rebound tenderness present Back/Spine no CVA tenderness and no thoracic nor lumbar tenderness Extremity normal to inspection General Extremety ED: Negative for edema or tenderness General Extremity: Negative for edema Neuro oriented x3, CN's II-XII intact bilaterally and no sensory deficits noted Sensorium / Orientation: awake and alert Skin Skin Narrative: See above. Right lower extremity: Dressing to right mid medial aspect leg clean, dry, intact. MDM MDM MDM Narrative Medical decision making narrative: Interventions / MDM: Differential diagnosis: Syncope, fall, scalp laceration, pulmonary embolism, NSTEMI Diagnosis considered but do not suspect: Intracranial hemorrhage however CT negative. My EKG interpretation: Sinus rate of 76, no ST changes. T wave inversion V3 V4 along with lead III.QTc 427 Comparison to EKG March 2024, has new T wave version only in V4. Imaging independently reviewed and interpreted by myself: CT brain: No acute process. CTA chest: Saddle embolism with mild heart strain discussion with radiologist. External documents reviewed: Echocardiogram March 2024: EF of 45% Test considered but not ordered:N/A ED course: Patient exertional dyspnea chest tightness prior to his syncopal episode. Trauma scans head obtained. EKG ordered. Labs including D-dimer and cardiac enzymes for further evaluation. 175: Aristeo were placed on his scalp with no difficulties. Mr. Ewing is 37. Creatinine 1.06. Hemoglobin 13.6. EKG sinus rhythm T wave versions V3 V4. Currently initiated with lab with a D-dimer. Pulse ox 91% had exertional syncope with PE history off anticoagulants. High probability of pulmonary embolism, therefore CT angiogram the chest ordered for further evaluation. 1840: Repeat troponin up to 975 from 39. He was symptom-free on reevaluation. My wet read on his CT PE protocol concern for bilateral PE left greater than right with heart strain. Pulse ox 91%. Course of Tylenol for his headache from head injury. He was dosed with aspirin 324 mg start heparin drip with concerns for PE and NSTEMI. Awaiting final read at this time. Final read and discussion with radiologist saddle PE mild heart strain. Patient not requiring oxygen at this time. Syncopal episode. Chest pain-free. Discussed with hospitalist Dr. Nugent for admission to PCU. Re-evaluation: Fair Disposition discussed with patient/family/significant other: Patient Case discussed with consulting clinician: hospitalist This note was generated with uStudio dictation software. It may contain incorrect words, spelling, and punctuation that were not noted in checking the note before signing. Lab Data Attestation: I reviewed the patient's lab results. Labs: Laboratory Results - last 24 hr 07/02/24 07/02/24 07/02/24 15:12 17:40 18:37 WBC 4.7 RBC 4.93 Hgb 13.6 Hct 42.8 MCV 86.8 MCH 27.6 MCHC 31.8 L RDW Std Deviation 45.1 H RDW Coeff of Enriqueta 14.3 Plt Count 113 L MPV 9.5 Immature Gran % (Auto) 0.400 Neut % (Auto) 69.2 Lymph % (Auto) 15.0 L Davis % (Auto) 12.2 H Eos % (Auto) 2.6 Baso % (Auto) 0.6 Absolute Neuts (auto) 3.2 Absolute Lymphs (auto) 0.70 L Nucleated RBC % 0 PT 14.9 15.4 H INR 1.2 1.2 APTT 28.4 28.6 D-Dimer Quant (PE/DVT) > 20.00 H* Sodium 141 Potassium 3.9 Chloride 112 H Carbon Dioxide 25.0 Anion Gap 4 L BUN 20 H Creatinine 1.06 Estim Creat Clear Calc 63.65 Est GFR (MDRD) Af Amer 89 Est GFR (MDRD) Non-Af 73 BUN/Creatinine Ratio 18.9 Glucose 137 H Calcium 9.2 Troponin I High Sens 39 975 H* Radiography Diagnostic Testing: Clinical Impression(s) from Imaging Studies Brain CT 07/02/24 15:15 IMPRESSION: Chronic involutional changes of the brain. No acute abnormality of the brain. Electronically Signed: Nathaniel Guzman MD at 16:51 EDT , Chest CTA 07/02/24 17:54 IMPRESSION: Extensive bilateral pulmonary emboli including saddle embolus, and emboli in both main pulmonary arteries. Mild right ventricular strain. N.B. : The above Results were Read Back by Nathaniel Guzman MD to Kishan Soliz DO, and understanding confirmed on 07/02/2024 19:07:14 (ET). Electronically Signed: Nathaniel Guzman MD at 19:09 EDT , ADDENDUM: 07/02/24 191 IMPRESSION: Extensive bilateral pulmonary emboli including saddle embolus, and emboli in both main pulmonary arteries. Mild right ventricular strain. N.B. : The above Results were Read Back by Nathaniel Guzman MD to Kishan Soliz DO, and understanding confirmed on 07/02/2024 19:07:14 (ET). Electronically Signed: Nathaniel Guzman MD at 19:09 EDT , Critical Care Time Critical Care Time: Yes Critical care time (excluding procedures): 30-74 minutes, Discussing w/Patient &/or Family/Field Collector, Discussing w/Consultants, Arranging Admission or Transfer, Performing Direct Patient Care at Bedside and - (40 minutes) Discharge Plan Dx/Rx/DC Orders Clinical Impression: Saddle pulmonary embolus, Non-ST elevation [place] (NSTEMI), CHI (closed head injury), Scalp laceration, Tetanus toxoid vaccination administered at current visit, Syncope Disposition Disposition: Acute Care Hospital [facility] Discharge Date/Time: 07/02/24 20:31
[2024-07-02] MEDS: Diphth,Pertuss(Acell),Tet Vac 0.5 ML Vial IM (15:35)
[2024-07-02] MEDS: Lidocaine/Epi/Tetracaine 50 ML 1 APPLIC TOPICAL (15:42)
[2024-07-02 15:50] LABS: Absolute Neutrophil Count 3.2 X10^3/uL (2.0-7.7); Basophil# 0.03 X10^3/uL; Basophil% 0.6 % (0-1); Eosinophil# 0.12 X10^3/uL; Eosinophils% 2.6 % (0-5); Hematocrit 42.8 % (40-54); Hemoglobin 13.6 g/dL (13.0-16.5); Mean Corp Hgb Conc 31.8 g/dL (32-36); Mean Corpuscular Hgb 27.6 pg (27.0-32.0); Mean Corpuscular Volume 86.8 fL (80-94); Mean Platelet Vol. 9.5 fl (6.2-12.0); Monocyte# 0.57 X10^3/uL; Monocyte% 12.2 % (0-10); NRBC Flagged by Analyzer 0 % (0-5); Neutrophil # 3.22 X10^3/uL (2.7-7.7); Neutrophil % 69.2 % (47-70); Platelet Count 113 K/mm3 (150-450); RBC Distribution Width CV 14.3 % (11.6-14.6); RBC Distribution Width SD 45.1 fl (35.1-43.9); Red Blood Count 4.93 M/mm3 (4.6-6.2); White Blood Count 4.7 K/mm3 (4.4-11.0)
[2024-07-02 16:00] LABS: Anion Gap 4 (5-15); BUN 20 mg/dL (7-18); BUN/Creat Ratio 18.9 RATIO (10-20); Calcium,Total 9.2 mg/dL (8.5-10.1); Chloride 112 mmol/L (98-107); Creatinine, Serum 1.06 mg/dL (0.70-1.30); EST Glomerular Filtration Rate 73 mL/min (>60); Est Glom Filt Rate - Afr Amer 89 mL/min (>60); Estimated Creatinine Clearance 63.65 ml/min; Glucose 137 mg/dL (74-106); Potassium 3.9 mmol/L (3.5-5.1); Sodium Level 141 mmol/L (136-145); Troponin-I HS (w/2H Reflex) 39 pg/mL (3.0-78.0)
--- NOTE | 2024-07-02 16:57 | ED.RN ---
CALLED LAB AT 1657. D-DIMER, PTT, AND INR STILL PENDING. WAITING ON MACHINE TO FINISH WITH QC.
[2024-07-02 17:16] LABS: International Normalized Ratio 1.2; Prothrombin Time (Protime)PT. 14.9 SECONDS (11.7-14.9)
[2024-07-02 17:17] LABS: Partial Thromboplast Time 28.4 Seconds (24.1-36.2)
[2024-07-02 17:26] LABS: Reflex Troponin-HS? (from REC) Y
--- NOTE | 2024-07-02 17:54 | CT_ITS ---
EXAM: CT ANGIOGRAPHY CHEST WITHOUT AND WITH INTRAVENOUS CONTRAST CLINICAL INDICATION: dyspnea, syncope -- hx PE off anticoagulants TECHNIQUE: Helically acquired angiography images were obtained of the chest without and with intravenous contrast. This CT exam was performed using one or more of the following dose reduction techniques: automated exposure control, adjustment of the mA and/or kV according to patient size, and/or use of iterative reconstruction technique. MIP reconstructed images were created and reviewed. CONTRAST: IV 100mL Isovue-370 RADIATION DOSE: CTDIvol = 14.53 mGy, DLP = 505.97 mGy-cm COMPARISON: No relevant prior studies available. FINDINGS: PULMONARY ARTERIES: Extensive moderately large filling defects are seen in the distal right and left main pulmonary arteries consistent with first order PE and there is also saddle embolus. Scattered filling defects are seen throughout the right and left lobar and segmental vessels of both lungs, most pronounced in the lower lobes. AORTA: Unremarkable. Normal in caliber. No evidence of dissection. GREAT VESSELS OF AORTIC ARCH: Unremarkable. Normal in caliber. No evidence of dissection. LUNGS AND PLEURAL SPACES: Evaluation of the lungs is difficult and limited because of respiratory motion. No definite pulmonary infarct. No definite focal infiltrates. No definite mass. No pleural effusion or thickening. No pneumothorax. HEART: There is probable mild right ventricular strain. Mild to moderate cardiomegaly. Moderate coronary artery calcifications. No pericardial effusion. MEDIASTINUM: Unremarkable. No mediastinal or hilar adenopathy. Esophagus is unremarkable. No hiatal hernia. THYROID: Unremarkable. No thyroid lesions. BONES/JOINTS: Degenerative changes throughout the bones. No suspicious lytic or blastic abnormality. CT/CTA Chest W/WO Contrast IMPRESSION: Extensive bilateral pulmonary emboli including saddle embolus, and emboli in both main pulmonary arteries. Mild right ventricular strain. N.B. : The above Results were Read Back by Nathaniel Guzman MD to Kishan Soliz DO, and understanding confirmed on 07/02/2024 19:07:14 (ET). Electronically Signed: Nathaniel Guzman MD at 19:09 EDT ,
[2024-07-02 18:23] LABS: D-Dimer Quantitative (DVT/PE) > 20.00 FEU/ug/m (0.27-0.49)
[2024-07-02 18:29] LABS: Troponin-I HS 975 pg/mL (3.0-78.0)
[2024-07-02] MEDS: Acetaminophen 500 MG Tablet 1000 MG PO (18:51)
[2024-07-02] MEDS: Aspirin 81 MG TAB.CHEW 324 MG PO (18:51)
[2024-07-02 18:55] LABS: International Normalized Ratio 1.2; Prothrombin Time (Protime)PT. 15.4 SECONDS (11.7-14.9)
[2024-07-02 18:56] LABS: Partial Thromboplast Time 28.6 Seconds (24.1-36.2)
[2024-07-02] MEDS: HEPARIN/D5w 25,000 UNITS 25,000 UNITS/250 ML IV.SOLN. 8 UNITS CONT INF (19:02)
[2024-07-02] MEDS: Heparin Injection (Vial) 5,000 UNIT/ML VIAL 4000 UNIT IV (19:06)
--- NOTE | 2024-07-02 19:16 | HP.PCM.HOS_ITS ---
[facility] - General General Date of Admission: 07/02/24 Date of Service: 07/02/24 Chief Complaint: Syncope. 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 Stearns of general surgery with postoperative Left scrotal hematoma that is ~4.8 cm on ultrasound that is predominantly fluid with septations who presents to [facility] ER complaining of syncope. Mr. Guadalupe reports his symptoms began approximately one hour prior to arrival when he was at work and attempting to go up two flights of stairs with the abrupt-onset of chest tightness and SOB. He then had a syncopal event culminating in him striking his head on the ground with an ~2 cm laceration to the crown of his scalp. He denies similar previous episodes. He also denies related fever, chills, nausea, vomiting, abdominal pain, diarrhea, dysuria, headache, visual changes or focal neurologic deficits. In the ER he was noted to have a CTA of the chest positive for Bilateral Pulmonary Emboli (L>R) with signs of Right heart strain with a confirmatory elevated d- dimer of >20 complicated by a second troponin of 975 pg/mL present on admission suspected to be due to Acute Heart Strain arising from PE compounded by clinical evidence of Acute Respiratory insufficiency after recent robot-assisted Left inguinal hernia repair with mesh on 04/04/[address] Stearns of general surgery with postoperative Left scrotal hematoma that is ~4.8 cm on ultrasound that is predominantly fluid with septations and he was then admitted to the PCU for ongoing care for a stay that is expected to extend beyond 2 midnights. [facility] Medical History Left inguinal hernia Preop cardiovascular exam Low iron Fragile skin Back pain Injury of head and neck CPAP (continuous positive airway pressure) dependence History of edema Wears dentures Wears glasses Thyroid disease Arthritis Non-smoker Leg cramps History of pain when walking History of echocardiogram S/P transesophageal echocardiogram ([facility]) Hypertension Cardiology follow-up encounter 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 Non-rheumatic tricuspid valve insufficiency Nonrheumatic mitral (valve) insufficiency Nonrheumatic mitral (valve) prolapse Hydronephrosis Lung nodule History of pulmonary embolus (PE) (11/02/17) Essential hypertension Anemia 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) Compound heterozygous MTHFR mutation [id number] Hypoalbuminemia Gastritis Weight loss, unintentional Hypothyroid DDD (degenerative disc disease), lumbar Segmental and somatic dysfunction of pelvic region Segmental and somatic dysfunction of lumbar region Umbilical hernia without mention of obstruction or gangrene Home Medications ?Medication ?Instructions ?Recorded ?Last Taken ?Type fluticasone propionate 50 1 spray NASAL BID PRN Allergies 12/13/18 Unknown History mcg/actuation nasal spray,suspension prednisolone acetate (PF) 1 % eye 1 drp LEFT EYE QHS 06/15/20 07/01/24 History drops,suspension levothyroxine 50 mcg tablet 50 mcg PO DAILY 08/27/21 07/02/24 History cholecalciferol (vitamin D3) 25 25 mcg PO DAILY 03/21/23 07/02/24 History mcg (1,000 unit) tablet carvedilol 6.25 mg tablet 6.25 mg PO BID stop Metoprolol and 04/01/24 07/02/24 Rx start this medication #60 tabs dapagliflozin propanediol 10 mg 10 mg PO DAILY #30 tabs 04/29/24 07/02/24 Rx tablet (Farxiga) multivitamin 1 tab PO DAILY 04/29/24 07/02/24 History sacubitril 49 mg-valsartan 51 mg 1 tab PO BID #60 tabs 05/15/24 07/02/24 Rx tablet (Entresto) Allergy/AdvReac Type Severity Reaction Status Date / Time [id number]-IrR Reductase AdvReac Severe Muscle Verified 07/02/24 14:56 Inhibitor (Rrllgkf-Sdv-Mlv Weakness Reductase Inhibitor) Family History Father Prostate cancer Heart disease Daughter Asthma Mother Aorta aneurysm Surgical History S/P left inguinal hernia repair Hx of right cataract extraction Hx of left cataract extraction History of right hip replacement (01/19/22) Hx of eye surgery History of right and left heart catheterization (10/19/18) History of tricuspid valve repair (10/23/18) History of facial surgery H/O mitral valve replacement (10/23/18) History of cataract surgery History of right inguinal hernia repair History of umbilical hernia repair Hx of appendectomy Social History Smoking Status: Never smoker alcohol intake: never substance use type: does not use caffeine: Yes what type of physical activity do you participate in: none frequency: does not exercise ROS ROS Narrative Review of Systems: Constitutional: Patient denies fever or chills. Eyes: Patient denies changes in vision or discharge from eyes. ENT: Patient denies runny nose, sore throat or ear pain. Resp: Patient admits to SOB but she denies cough. CV: Patient admits to chest pain and exertional syncope but denies palpitations or heart racing. GI: Patient denies nausea, vomiting, diarrhea or constipation. : Patient denies dysuria or hematuria. MSK: Patient denies arthralgias or myalgias. Skin: Patient admits to laceration crown of head but he denies rash, abscess or jaundice. Neuro: Patient denies headache, paresthesias or focal neurologic deficits. Psych: Patient denies symptoms of uncontrolled depression or anxiety. Allergy: Patient denies lip swelling, tongue swelling or urticaria. Hematology: Patient denies easy bleeding or easy bruisability. Endocrinology: Patient denies polyuria, polydipsia or polyphagia. 14 point ROS otherwise negative except for positives noted above in HPI. Vital Signs Vital Signs Vital Signs: 07/02/24 14:56 07/02/24 15:25 07/02/24 15:55 Temperature 98.6 F Temperature Source Temporal Pulse Rate 78 81 Respiratory Rate 16 16 Respiratory Effort Normal Respiratory Pattern Normal Blood Pressure 135/96 H 118/86 H Blood Pressure Mean 109 96 Pulse Ox 91 97 Oxygen Delivery Method Room Air Room Air 07/02/24 16:00 07/02/24 16:59 07/02/24 18:00 Temperature Temperature Source Pulse Rate 74 81 74 Respiratory Rate 22 H 21 H Respiratory Effort Respiratory Pattern Blood Pressure 122/89 H 120/90 H 102/70 Blood Pressure Mean 100 100 80 Pulse Ox 90 91 98 Oxygen Delivery Method Room Air Room Air 07/02/24 19:00 Temperature Temperature Source Pulse Rate 74 Respiratory Rate 16 Respiratory Effort Respiratory Pattern Blood Pressure 117/92 H Blood Pressure Mean 100 Pulse Ox 97 Oxygen Delivery Method Room Air Weight Weight: 153 lb Body Mass Index (BMI) 21.9 Physical Exam Const alert, oriented x3, no apparent distress and average body habitus General Appearance: cooperative HEENT head/scalp atraumatic, hearing grossly normal bilaterally and moist oral mucous membranes HEENT Narrative: ~2 cm laceration to the crown of the scalp. Eyes PERRL and EOMs intact bilaterally Neck no lymphadenopathy and supple Resp normal respiratory effort, no retractions, no use of accessory muscles and clear to auscultation bilaterally Cardio regular rate and regular rhythm GI normal to inspection, nondistended, normoactive bowel sounds, soft to palpation, non-tender and non-distended Extremity normal to inspection and full ROM Skin Skin Narrative: Patient has a Left scrotal hematoma. Neuro oriented x3, CN's II-XII intact bilaterally, moves all extremities and no focal motor deficits Sensorium / Orientation: awake, alert, oriented to person, oriented to place and oriented to time Speech: speech normal Psych affect normal Results Medical Records Data Attestation: I reviewed the patient's medical records Lab / Micro Data Attestation: I reviewed the patient's lab results. 07/02/24 15:12 07/02/24 15:12 Labs: Laboratory Results - last 24 hr 07/02/24 15:12: WBC 4.7, RBC 4.93, Hgb 13.6, Hct 42.8, MCV 86.8, MCH 27.6, MCHC 31.8 L, RDW Std Deviation 45.1 H, RDW Coeff of Enriqueta 14.3, Plt Count 113 L, MPV 9.5, Immature Gran % (Auto) 0.400, Neut % (Auto) 69.2, Lymph % (Auto) 15.0 L, M mandi % (Auto) 12.2 H, Eos % (Auto) 2.6, Baso % (Auto) 0.6, Absolute Neuts (auto) 3.2, Absolute Lymphs (auto) 0.70 L, Nucleated RBC % 0, PT 14.9, INR 1.2, APTT 28.4, D-Dimer Quant (PE/DVT) > 20.00 H*, Sodium 141, Potassium 3.9, Chloride 112 H, Carbon Dioxide 25.0, Anion Gap 4 L, BUN 20 H, Creatinine 1.06, Estim Creat Clear Calc 63.65, Est GFR (MDRD) Af Amer 89, Est GFR (MDRD) Non-Af 73, BUN/Creatinine Ratio 18.9, Glucose 137 H, Calcium 9.2, Troponin I High Sens 39 07/02/24 17:40: Troponin I High Sens 975 H* 07/02/24 18:37: PT 15.4 H, INR 1.2, APTT 28.6 Imaging Radiology Impression Brain CT 07/02/24 15:15 IMPRESSION: Chronic involutional changes of the brain. No acute abnormality of the brain. Electronically Signed: Nathaniel Guzman MD at 16:51 EDT , Chest CTA 07/02/24 17:54 IMPRESSION: Extensive bilateral pulmonary emboli including saddle embolus, and emboli in both main pulmonary arteries. Mild right ventricular strain. N.B. : The above Results were Read Back by Nathaniel Guzman MD to Kishan Soliz DO, and understanding confirmed on 07/02/2024 19:07:14 (ET). Electronically Signed: Nathaniel Guzman MD at 19:09 EDT , Assessment & Plan Assessment/Plan (1) Saddle pulmonary embolus: QUALIFIERS: Acute cor pulmonale presence: unspecified Chronicity: acute Qualified Code(s): I26.92 - Saddle embolus of pulmonary artery without acute cor pulmonale (2) Elevated troponin: (3) Syncope and collapse: (4) Respiratory insufficiency: (5) History of pulmonary embolism: (6) AMY (obstructive sleep apnea): (7) Postoperative hematoma: QUALIFIERS: Procedure type: genitourinary Surgical complication system/body Area: genitourinary Qualified Code(s): N99.840 - Postprocedural hematoma of a genitourinary system organ or structure following a genitourinary system procedure (8) Compound heterozygous MTHFR mutation [id number]: PLAN: Plan 1. CTA of the chest positive for Bilateral Pulmonary Emboli (L>R) with signs of Right heart strain with a confirmatory elevated d-dimer of >20 in the setting of a known history of PE (2018) with patient taken off anticoagulation ~1 year ago - Admit to PCU. Continue IV Heparin begun on the ER. Check echocardiogram to evaluate LVEF and to confirm suspected Right heart strain on CTA. Check bilateral LE doppler to evaluate for residual clot burden. Give Tylenol prn for [id number] (level 1-5/10) pain or fever. Give Morphine IV prn for severe (level 6-10/10) pain. Finally, we will consult vascular surgeon on-call to see this patient on-rounds in the AM for further recommendations with help appreciated in advance. 2. Second troponin of 975 pg/mL present on admission suspected to be due to Acute Heart Strain causing exertional syncope arising from #1 - Serialize troponin. Continue anticoagulation with heparin and add BASA. Hold Plavix with postoperative Left scrotal hematoma. 3. Acute Respiratory insufficiency attributable to #1 & #2 - Wean supplemental oxygen as tolerated. 4. Recent robot-assisted Left inguinal hernia repair with mesh on 04/04/[address] Stearns of general surgery with postoperative Left scrotal hematoma that is ~4.8 cm on ultrasound that is predominantly fluid with septations adding to the medical complexity of #1 - #3 - Noted. We will inform Dr. Stearns that his patient has been admitted with a potentially life threatening PE. 5. History of compound heterozygous MTHFR mutation likely contributing to #1 - Noted 6. History of cryoglobulinemic vasculitis - Noted. 7. Essential hypertension - Continue home regimen plus give prn Hydralazine IV for systolic blood pressure > 160 mmHg. 8. Hypothyroidism - Resume Synthroid and check TSH. 9. AMY; on CPAP - Maintain nocturnal CPAP as before. 10. History of nonrheumatic tricuspid insufficiency; s/p tricuspid valve repair (2018) - Noted. Echocardiogram pending for #1 & #2. 11. History of nonrheumatic Mitral valve prolapse - Noted. 12. History of streptococcal infective endocarditis of the mitral valve; s/p replacement - Noted. Repeat echo pending as noted above. 13. Chronic anemia - Stable with hemoglobin of 13.6 g/dL present on admission. 14. DDD - Stable. 15. OA; s/p Right LIA (2021) - Give Tylenol prn. 16. History of appendectomy - Noted. 17. History of Right inguinal hernia repair - Stable. 18. DVT/GI prophylaxis - Patient on IV Heparin for #1. Pepcid 20 mg PO BID. Total time: Approximately 75 minutes. Charges/Coding Visit Charges Inpatient E&M: 88975 Init Hosp L3
--- NOTE | 2024-07-02 20:43 | VDLE_ITS ---
Reason For Study: PULMONARY EMBOLISM RIGHT LEFT GSV is normal. GSV is normal. CFV is compressible, spontaneous, phasic, CFV is compressible, spontaneous, phasic, competent and demonstrates normal competent, and demonstrates normal augmentation. augmentation. Prox FV is compressible. FV is compressible, spontaneous, phasic, Mid FV is DILATED & partially compressible competent and demonstrates normal with minimal flow noted in vessels. augmentation. Distal FV, POP V, T/P trunk, PTV are DILATED POP V is compressible, spontaneous, phasic, & non compressible with no flow noted. competent and demonstrates normal Procedure augmentation. This is a venous duplex using B-mode, color T/P Trunk is compressible. flow and spectral Doppler. PTV is compressible. Exam performed in department. LT PerV is compressible. A preliminary report was called and/or faxed to Paula KUMAR @ time of exam & PCU. VL/Venous Duplex US - Amanuel Extrem Interpretation Summary Acute deep vein thrombosis is noted in the left femoral vein, popliteal vein, t ibioperoneal trunk vein, posterior tibial vein. Deep veins of the left lower extremity are patent and compressible segmentally. There is no evidence of left lower extremity deep vein thrombosis. The bilateral great saphenous vei ns appear patent and compressible segmentally. Ordering Physician: Donavon Wakefield Referring Physician: Wade Arce Chi Performed By: Jacinda Rogers, DAYCS, RVT
--- NOTE | 2024-07-02 20:43 | ECHOD_ITS ---
Reason For Study: Pulmonary Embolus Procedure This was a 2D Doppler, Color Flow transthoracic echocardiogram. Exam performed portable in patient room. Left Ventricle Normal LV size. Left ventricular systolic function is normal. The left ventricular ejection fraction is 55 %. Stage 1 diastolic dysfunction. No regional wall motion abnormalities noted. Right Ventricle Moderately dilated right ventricle. Moderate global right ventricular systolic dysfunction. Apical sparing pattern. Atria Normal left atrium. Normal right atrium. Mitral Valve Stable appearing bioprosthetic mitral valve apparatus. Tricuspid Valve Normal tricuspid valve. Mild (1+) tricuspid valve insufficiency. Pulmonary artery systolic pressure is 28 mmHg. An annuloplasty ring is noted in the tricuspid position. Aortic Valve Trisinus/trileaflet aortic valve. Pulmonic Valve Normal pulmonic valve. Mild (1+) pulmonic valve insufficiency. Great Vessels Normal aortic root. The pulmonary artery is normal size. Normal inferior vena cava. Pericardium/Pleural No pericardial effusion. MMode/2D Measurements & Calculations LVIDd: 4.5 cm IVSd: 1.6 cm Ao root diam: 3.3 cm LVIDs: 3.0 cm LVPWd: 1.1 cm RVDd: 4.6 cm FS: 33.8 % LAV(MOD-bp): 70.5 ml LVAd ap4: 31.2 cm2 LVAd ap2: 31.1 cm2 LAV(MOD-bp) Indexed: 37.9 ml/m2 LVLd ap4: 8.3 cm LVLd ap2: 8.6 cm LAV(MOD-sp2): 79.3 ml EDV(MOD-sp4): 97.9 ml EDV(MOD-sp2): 93.9 ml LAV(MOD-sp4): 54.4 ml EDV(sp4-el): 99.6 ml EDV(sp2-el): 95.1 ml LVAs ap4: 19.3 cm2 LVAs ap2: 19.7 cm2 LVLs ap4: 7.1 cm LVLs ap2: 7.7 cm ESV(MOD-sp4): 44.8 ml ESV(MOD-sp2): 43.1 ml ESV(sp4-el): 44.7 ml ESV(sp2-el): 42.9 ml EF(MOD-sp4): 54.3 % EF(MOD-sp2): 54.1 % EF(sp4-el): 55.1 % SV(MOD-sp4): 53.1 ml SV(MOD-sp2): 50.8 ml SV(sp4-el): 54.9 ml LA dimension(2D): 3.7 cm LA A4 area: 20.5 cm2 RA A4 area: 14.4 cm2 TAPSE: 2.0 cm Time Measurements MV dec time: 0.46 sec Doppler Measurements & Calculations MV E max binu: 129.4 cm/sec Lat Peak E' Binu: 10.7 cm/sec Med Peak E' Binu: 6.6 cm/sec MV A max binu: 156.4 cm/sec E/E' lat: 12.1 E/E' med: 19.6 MV E/A: 0.83 MV V2 max: 169.4 cm/sec MV P1/2t max binu: 121.2 cm/sec Ao V2 max: 102.2 cm/sec MV max P.5 mmHg MV P1/2t: 135.8 msec Ao max P.2 mmHg MV V2 mean: 102.3 cm/sec MV dec slope: 261.3 cm/sec2 MV mean P.6 mmHg MV V2 VTI: 57.8 cm MVA(P1/2t): 1.6 cm2 LV V1 max: 72.8 cm/sec PA V2 max: 69.4 cm/sec TR max binu: 242.2 cm/sec LV V1 max P.1 mmHg TR max P.5 mmHg ECHO/Echo Complete Interpretation Summary Normal LV size. Left ventricular systolic function is normal. The left ventricular ejection fraction is 55 %. Apical sparing pattern, consistent with pulmonary embolism Moderately dilated right ventricle. Moderate global right ventricular systolic dysfunction. Stage 1 diastolic dysfunction. An annuloplasty ring is noted in the tricuspid position. Ordering Physician: Donavon Wakefield Referring Physician: Wade Arce Chi Performed By: Carissa Mustafa RDCS
[2024-07-02] MEDS: 0.9% Normal Saline (1000mL) 1,000 ML 70 ML IV (21:13)
[2024-07-02] MEDS: Carvedilol 6.25 MG Tablet PO (21:13)
[2024-07-02] MEDS: Famotidine 20 MG Tablet PO (21:14)
[2024-07-02] MEDS: prednisoLONE eye drops (5 mL) 1 DROP OPTH.BTL 1 DRP LEFT EYE (21:14)
[2024-07-02] MEDS: SACUBITRIL/VALSARTAN 49-51 MG TABLET 1 EACH PO (21:14)
[2024-07-02 21:26] LABS: Troponin-I HS 1530 pg/mL (3.0-78.0)
[2024-07-02] MEDS: 0.9% Saline Lock 10 ML Syringe IV (21:32)
[2024-07-03 03:20] VITALS: BP 103/81; PULSE 69; RESP 16; TEMP 35.9; O2SAT 96
[2024-07-03 06:00] VITALS: BMI 31.1
[2024-07-03] MEDS: Levothyroxine 50 MCG Tablet PO (06:00)
[2024-07-03] MEDS: Acetaminophen 325 MG Tablet 650 MG PO (06:00)
[2024-07-03] MEDS: 0.9% Saline Lock 10 ML Syringe IV (06:52)
[2024-07-03 07:07] LABS: Absolute Lymphocyte Count 0.75 X10^3/uL (0.83-4.51); Absolute Neutrophil Count 3.4 X10^3/uL (2.0-7.7); Basophil# 0.03 X10^3/uL; Basophil% 0.6 % (0-1); Eosinophil# 0.15 X10^3/uL; Eosinophils% 3.1 % (0-5); Hematocrit 41.3 % (40-54); Lymphocyte # 0.75 X10^3/ul (0.83-4.51); Lymphocyte % 15.4 % (19-41); Mean Corp Hgb Conc 31.5 g/dL (32-36); Mean Corpuscular Hgb 27.8 pg (27.0-32.0); Mean Corpuscular Volume 88.4 fL (80-94); Mean Platelet Vol. 9.6 fl (6.2-12.0); Monocyte# 0.55 X10^3/uL; Monocyte% 11.3 % (0-10); NRBC Flagged by Analyzer 0 % (0-5); Neutrophil # 3.37 X10^3/uL (2.7-7.7); Neutrophil % 69.4 % (47-70); Platelet Count 104 K/mm3 (150-450); RBC Distribution Width CV 14.5 % (11.6-14.6); Red Blood Count 4.67 M/mm3 (4.6-6.2); White Blood Count 4.9 K/mm3 (4.4-11.0)
[2024-07-03 07:33] LABS: Partial Thromboplast Time 54.8 Seconds (24.1-36.2)
[2024-07-03 07:47] LABS: ALB/GLOB Ratio 1.1 RATIO (0.9-2.4); AST(SGOT) 20 U/L (15-37); Alanine Aminotransfer ALT/SGPT 25 U/L (16-61); Albumin, Serum 3.4 g/dL (3.2-5.0); Alkaline Phosphatase 72 U/L (45-117); Anion Gap 6 (5-15); BUN 16 mg/dL (7-18); BUN/Creat Ratio 17.7 RATIO (10-20); Calcium,Total 8.9 mg/dL (8.5-10.1); Chloride 112 mmol/L (98-107); Creatinine, Serum 0.91 mg/dL (0.70-1.30); EST Glomerular Filtration Rate 88 mL/min (>60); Est Glom Filt Rate - Afr Amer 106 mL/min (>60); Estimated Creatinine Clearance 89.02 ml/min; Globulin 3.2 g/dL (2.2-4.2); Glucose 98 mg/dL (74-106); Magnesium 2.1 mg/dL (1.6-2.6); Phosphorus 3.4 mg/dL (2.5-4.9); Potassium 3.7 mmol/L (3.5-5.1); Protein, Total 6.6 g/dL (6.4-8.2); Sodium Level 141 mmol/L (136-145)
[2024-07-03 08:28] LABS: Partial Thromboplast Time 55.6 Seconds (24.1-36.2)
--- NOTE | 2024-07-03 08:54 | EX.PCM.CONCC ---
Assessment & Plan Assessment/Plan (1) Saddle pulmonary embolus: QUALIFIERS: Chronicity: acute Acute cor pulmonale presence: unspecified Qualified Code(s): I26.92 - Saddle embolus of pulmonary artery without acute cor pulmonale PLAN: Plan RECOMMENDATIONS: 1. Continue weight-based heparin infusion. 2. Await results of echocardiogram. 3. Unless there is significant pulmonary hypertension or RV dysfunction, unlikely the patient will require thrombectomy. 4. Recommend lifelong anticoagulation without interruption. 5. Perform walking oximetry study prior to consideration for discharge home. IMPRESSIONS: 1. Bilateral pulmonary emboli The patient presented to the hospital with a syncopal event with radiographic evidence of extensive bilateral pulmonary emboli with proximal involvement, left greater than right. There was evidence of RV strain on CT imaging, with echocardiogram pending. 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 He was treated with systemic anticoagulation until approximately 1 year ago when it was discontinued. Given the aforementioned, I would recommend that the patient be maintained on lifelong anticoagulation without interruption. Unless the patient has significant pulmonary hypertension or RV dysfunction on echocardiogram, thrombectomy is likely not necessary. 2. History of hypertension/hypothyroidism/obstructive sleep apnea on PAP therapy/valvular heart disease/anemia Complicates care, management, recovery and prognosis. Continue home medications as indicated. Recommend continuing PAP therapy with naps and nightly, per home regimen. This note was generated with [employer] dictation software. It may contain incorrect words, spelling, and punctuation that were not noted in checking the note before signing. HPI Consult Data Date of Consult: 07/03/24 HPI Narrative Reason for Consultation: Pulmonary emboli HPI Narrative: The patient is a 68-year-old male, with a history as outlined below, who presented to the emergency department on July 02 after developing a syncopal event and striking his head. The patient stated that he was ambulating up 3 flights of stairs when he developed shortness of breath and chest discomfort, which ultimately culminated in him experiencing a syncopal event. The patient denied any recent travel. He did report that he was diagnosed with pulmonary emboli in 2018. The patient reported that he was worked up at [facility] and later at [facility]. They initially attributed his VTE to underlying cryoglobulinemic vasculitis/heterozygous MTHFR mutation. The patient was treated with anticoagulation until approximately 1 year ago when it was discontinued. The patient reported that he was initially being maintained on Eliquis and was later transition to Coumadin. He is a lifelong non-smoker. On presentation to the emergency department, the patient was documented to be afebrile and hemodynamically stable. The patient was maintaining appropriate oxygen saturations on room air. Initial laboratory evaluation revealed a normal white blood cell count. Platelet count was low at 113,000. D-dimer was significantly elevated. Chemistry profile was notable for a troponin of 975. CTA chest demonstrated extensive bilateral pulmonary emboli with proximal involvement, left greater than right, and evidence of RV strain. The patient was subsequently placed on a weight-based heparin infusion and admitted to the progressive care unit for further management. 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 Non-rheumatic tricuspid valve insufficiency Nonrheumatic mitral (valve) insufficiency Nonrheumatic mitral (valve) prolapse Hydronephrosis Lung nodule History of pulmonary embolus (PE) (11/02/17) Essential hypertension Anemia 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) Compound heterozygous MTHFR mutation [id number] Hypoalbuminemia Gastritis Weight loss, unintentional Hypothyroid DDD (degenerative disc disease), lumbar Segmental and somatic dysfunction of pelvic region Segmental and somatic dysfunction of lumbar region Umbilical hernia without mention of obstruction or gangrene Home Medications ?Medication ?Instructions ?Recorded ?Last Taken ?Type fluticasone propionate 50 1 spray NASAL BID PRN Allergies 12/13/18 Unknown History mcg/actuation nasal spray,suspension prednisolone acetate (PF) 1 % eye 1 drp LEFT EYE QHS 06/15/20 07/01/24 History drops,suspension levothyroxine 50 mcg tablet 50 mcg PO DAILY 08/27/21 07/02/24 History cholecalciferol (vitamin D3) 25 25 mcg PO DAILY 03/21/23 07/02/24 History mcg (1,000 unit) tablet carvedilol 6.25 mg tablet 6.25 mg PO BID stop Metoprolol and 04/01/24 07/02/24 Rx start this medication #60 tabs dapagliflozin propanediol 10 mg 10 mg PO DAILY #30 tabs 04/29/24 07/02/24 Rx tablet (Farxiga) multivitamin 1 tab PO DAILY 04/29/24 07/02/24 History sacubitril 49 mg-valsartan 51 mg 1 tab PO BID #60 tabs 05/15/24 07/02/24 Rx tablet (Entresto) Allergy/AdvReac Type Severity Reaction Status Date / Time Onldfrk-FKX-CzA Reductase AdvReac Severe Muscle Verified 07/02/24 14:56 Inhibitor (Veorqof-Fmy-Dgm Weakness Reductase Inhibitor) Family History Father Prostate cancer Heart disease Daughter Asthma Mother Aorta aneurysm Surgical History S/P left inguinal hernia repair Hx of right cataract extraction Hx of left cataract extraction History of right hip replacement (01/19/22) Hx of eye surgery History of right and left heart catheterization (10/19/18) History of tricuspid valve repair (10/23/18) History of facial surgery H/O mitral valve replacement (10/23/18) History of cataract surgery History of right inguinal hernia repair History of umbilical hernia repair Hx of appendectomy Social History Smoking Status: Never smoker alcohol intake: never substance use type: does not use caffeine: Yes what type of physical activity do you participate in: none frequency: does not exercise ROS ROS Narrative 10 systems were reviewed with pertinent positives as noted in the HPI above. Physical Exam Const alert, oriented x3 and no apparent distress General Appearance: cooperative HEENT normocephalic, head/scalp atraumatic and moist oral mucous membranes Eyes PERRL, EOMs intact bilaterally and conjunctivae normal Neck supple General: trachea midline Chest inspection of chest normal Resp normal respiratory effort Auscultation: Negative for rales, rhonchi or wheezes Cardio regular rate and regular rhythm GI normal to inspection, nondistended, normoactive bowel sounds Extremity no clubbing, cyanosis or edema Skin no rashes or lesions noted Neuro CN's II-XII intact bilaterally, moves all extremities and no focal motor deficits Psych cooperative and affect normal Lab / Micro Data 07/03/24 05:13 07/03/24 05:13 Labs: Laboratory Results - last 24 hr 07/02/24 15:12: WBC 4.7, RBC 4.93, Hgb 13.6, Hct 42.8, MCV 86.8, MCH 27.6, MCHC 31.8 L, RDW Std Deviation 45.1 H, RDW Coeff of [place] 14.3, Plt Count 113 L, MPV 9.5, Immature Gran % (Auto) 0.400, Neut % (Auto) 69.2, Lymph % (Auto) 15.0 L, [place] % (Auto) 12.2 H, Eos % (Auto) 2.6, Baso % (Auto) 0.6, Absolute Neuts (auto) 3.2, Absolute Lymphs (auto) 0.70 L, Nucleated RBC % 0, PT 14.9, INR 1.2, APTT 28.4, D-Dimer Quant (PE/DVT) > 20.00 H*, Sodium 141, Potassium 3.9, Chloride 112 H, Carbon Dioxide 25.0, Anion Gap 4 L, BUN 20 H, Creatinine 1.06, Estim Creat Clear Calc 63.65, Est GFR (MDRD) Af Amer 89, Est GFR (MDRD) Non-Af 73, BUN/Creatinine Ratio 18.9, Glucose 137 H, Calcium 9.2, Troponin I High Sens 39 07/02/24 17:40: Troponin I High Sens 975 H* 07/02/24 18:37: PT 15.4 H, INR 1.2, APTT 28.6 07/02/24 20:57: Troponin I High Sens 1530 H* 07/03/24 01:05: APTT 54.8 H 07/03/24 05:13: WBC 4.9, RBC 4.67, Hgb 13.0, Hct 41.3, MCV 88.4, MCH 27.8, MCHC 31.5 L, RDW Std Deviation 46.0 H, RDW Coeff of [place] 14.5, Plt Count 104 L, MPV 9.6, Immature Gran % (Auto) 0.200, Neut % (Auto) 69.4, Lymph % (Auto) 15.4 L, [place] % (Auto) 11.3 H, Eos % (Auto) 3.1, Baso % (Auto) 0.6, Absolute Neuts (auto) 3.4, Absolute Lymphs (auto) 0.75 L, Nucleated RBC % 0, Sodium 141, Potassium 3.7, Chloride 112 H, Carbon Dioxide 23.0, Anion Gap 6, BUN 16, Creatinine 0.91, Estim Creat Clear Calc 89.02, Est GFR (MDRD) Af Amer 106, Est GFR (MDRD) Non-Af 88, BUN/Creatinine Ratio 17.7, Glucose 98, Calcium 8.9, Phosphorus 3.4, Magnesium 2.1, Total Bilirubin 0.50, AST 20, ALT 25, Alkaline Phosphatase 72, Total Protein 6.6, Albumin 3.4, Globulin 3.2, Albumin/Globulin Ratio 1.1, TSH 2.210 07/03/24 07:45: APTT 55.6 H Imaging Radiology Impression Brain CT 07/02/24 15:15 IMPRESSION: Chronic involutional changes of the brain. No acute abnormality of the brain. Electronically Signed: Nathaniel Guzman MD at 16:51 EDT , Chest CTA 07/02/24 17:54 IMPRESSION: Extensive bilateral pulmonary emboli including saddle embolus, and emboli in both main pulmonary arteries. Mild right ventricular strain. N.B. : The above Results were Read Back by Nathaniel Guzman MD to Kishan Soliz DO, and understanding confirmed on 07/02/2024 19:07:14 (ET). Electronically Signed: Nathaniel Guzman MD at 19:09 EDT , ADDENDUM: 07/02/24 191 IMPRESSION: Extensive bilateral pulmonary emboli including saddle embolus, and emboli in both main pulmonary arteries. Mild right ventricular strain. N.B. : The above Results were Read Back by Nathaniel Guzman MD to Kishan Soliz DO, and understanding confirmed on 07/02/2024 19:07:14 (ET). Electronically Signed: Nathaniel Guzman MD at 19:09 EDT , Charges/Coding Visit Charges Inpatient E&M: 84267 Init Hosp L3
--- NOTE | 2024-07-03 09:04 | PCM.PN.HOSP ---
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 No shortness of breath. Objective Data Objective Data Vital Signs: Vital Signs Temp Pulse Resp BP Pulse Ox O2 Del Method 35.9 C L 69 16 103/81 H 96 Room Air 07/03/24 03:20 07/03/24 03:20 07/03/24 03:20 07/03/24 03:20 07/03/24 03:20 07/03/24 03:20 Oxygen Delivery Method Room Air Weight: 98.8 kg Body Mass Index (BMI) 31.1 Intake & Output: Intake and Output for Last 24 Hours 07/01/24 07/02/24 07/03/24 23:59 23:59 23:59 Intake Total 505.73 / 505.73 Output Total 350 / 350 Balance 155.73 / 155.73 Lab / Micro Data 07/03/24 05:13 07/03/24 05:13 Labs: Laboratory Results - last 24 hr 07/02/24 15:12: WBC 4.7, RBC 4.93, Hgb 13.6, Hct 42.8, MCV 86.8, MCH 27.6, MCHC 31.8 L, RDW Std Deviation 45.1 H, RDW Coeff of [place] 14.3, Plt Count 113 L, MPV 9.5, Immature Gran % (Auto) 0.400, Neut % (Auto) 69.2, Lymph % (Auto) 15.0 L, [place] % (Auto) 12.2 H, Eos % (Auto) 2.6, Baso % (Auto) 0.6, Absolute Neuts (auto) 3.2, Absolute Lymphs (auto) 0.70 L, Nucleated RBC % 0, PT 14.9, INR 1.2, APTT 28.4, D-Dimer Quant (PE/DVT) > 20.00 H*, Sodium 141, Potassium 3.9, Chloride 112 H, Carbon Dioxide 25.0, Anion Gap 4 L, BUN 20 H, Creatinine 1.06, Estim Creat Clear Calc 63.65, Est GFR (MDRD) Af Amer 89, Est GFR (MDRD) Non-Af 73, BUN/Creatinine Ratio 18.9, Glucose 137 H, Calcium 9.2, Troponin I High Sens 39 07/02/24 17:40: Troponin I High Sens 975 H* 07/02/24 18:37: PT 15.4 H, INR 1.2, APTT 28.6 07/02/24 20:57: Troponin I High Sens 1530 H* 07/03/24 01:05: APTT 54.8 H 07/03/24 05:13: WBC 4.9, RBC 4.67, Hgb 13.0, Hct 41.3, MCV 88.4, MCH 27.8, MCHC 31.5 L, RDW Std Deviation 46.0 H, RDW Coeff of [place] 14.5, Plt Count 104 L, MPV 9.6, Immature Gran % (Auto) 0.200, Neut % (Auto) 69.4, Lymph % (Auto) 15.4 L, [place] % (Auto) 11.3 H, Eos % (Auto) 3.1, Baso % (Auto) 0.6, Absolute Neuts (auto) 3.4, Absolute Lymphs (auto) 0.75 L, Nucleated RBC % 0, Sodium 141, Potassium 3.7, Chloride 112 H, Carbon Dioxide 23.0, Anion Gap 6, BUN 16, Creatinine 0.91, Estim Creat Clear Calc 89.02, Est GFR (MDRD) Af Amer 106, Est GFR (MDRD) Non-Af 88, BUN/Creatinine Ratio 17.7, Glucose 98, Calcium 8.9, Phosphorus 3.4, Magnesium 2.1, Total Bilirubin 0.50, AST 20, ALT 25, Alkaline Phosphatase 72, Total Protein 6.6, Albumin 3.4, Globulin 3.2, Albumin/Globulin Ratio 1.1, TSH 2.210 07/03/24 07:45: APTT 55.6 H Radiography Diagnostic Testing: Radiology Impression Brain CT 07/02/24 15:15 IMPRESSION: Chronic involutional changes of the brain. No acute abnormality of the brain. Electronically Signed: Nathaniel Guzman MD at 16:51 EDT Reading Location ID and State: [facility] / [place] , Service support , Chest CTA 07/02/24 17:54 IMPRESSION: Extensive bilateral pulmonary emboli including saddle embolus, and emboli in both main pulmonary arteries. Mild right ventricular strain. N.B. : The above Results were Read Back by Nathaniel Guzman MD to Kishan Soliz DO, and understanding confirmed on 07/02/2024 19:07:14 (ET). Electronically Signed: Nathaniel Guzman MD at 19:09 EDT Reading Location ID and State: [address] [place] [address] , Service support , ADDENDUM: 07/02/24 1916 IMPRESSION: Extensive bilateral pulmonary emboli including saddle embolus, and emboli in both main pulmonary arteries. Mild right ventricular strain. N.B. : The above Results were Read Back by Nathaniel Guzman MD to Kishan Soliz DO, and understanding confirmed on 07/02/2024 19:07:14 (ET). Electronically Signed: Nathaniel Guzman MD at 19:09 EDT Reading Location ID and State: [facility] / [place] , Service support , Physical Exam Const alert and no apparent distress Constitutional Narrative: up in room, standing on room air in respiratory distress. Neck no lymphadenopathy Extremity normal to inspection Assessment & Plan Assessment/Plan (1) Saddle pulmonary embolus: QUALIFIERS: Acute cor pulmonale presence: unspecified Chronicity: acute Qualified Code(s): I26.92 - Saddle embolus of pulmonary artery without acute cor pulmonale (2) Elevated troponin: (3) Syncope and collapse: (4) Respiratory insufficiency: (5) History of pulmonary embolism: (6) AMY (obstructive sleep apnea): (7) Postoperative hematoma: QUALIFIERS: Procedure type: genitourinary Surgical complication system/body Area: genitourinary Qualified Code(s): N99.840 - Postprocedural hematoma of a genitourinary system organ or structure following a genitourinary system procedure (8) Compound heterozygous MTHFR mutation [id number]: PLAN: Plan PE extensive bilateral PE with saddle embolus and emboli in both main pulmonary arteries. Mild RV strain. on heparin gtt Vascular and pulm consultation echo shows an EF 55%, moderately dilated RV. vascular to see to determine if embolectomy necessary. NSTEMI type II event given extensive PE. echo pending. Syncope 2/2 PE. Monitor Chronic conditions: Recent robot-assisted Left inguinal hernia repair with mesh on 04/04/[address] Stearns of general surgery with postoperative Left scrotal hematoma that is ~4.8 cm on ultrasound that is predominantly fluid with septations adding to the medical complexity of #1 - #3 - Noted. We will inform Dr. Stearns that his patient has been admitted with a potentially life threatening PE. History of compound heterozygous MTHFR mutation likely contributing to PE Essential hypertension - Continue home regimen plus give prn Hydralazine IV for systolic blood pressure > 160 mmHg. Hypothyroidism - Resume Synthroid and check TSH. AMY; on CPAP - Maintain nocturnal CPAP as before. History of nonrheumatic tricuspid insufficiency; s/p tricuspid valve repair (2019) VTE prophylaxis not indicated as patient is already anticoagulated Charges/Coding Visit Charges Inpatient E&M: 27444 Subs Hosp L2
--- NOTE | 2024-07-03 09:11 | EX.PCM.CON.S ---
Assessment & Plan Assessment/Plan (1) Saddle pulmonary embolus: QUALIFIERS: Acute cor pulmonale presence: unspecified Chronicity: acute Qualified Code(s): I26.92 - Saddle embolus of pulmonary artery without acute cor pulmonale PLAN: Plan CTA showed bilateral PE with evidence of right heart strain. Echo showed EF of 55% and moderately dilated right ventricle. At present, he is saturating well on room air and otherwise asymptomatic. Patient has a history significant for prior tricuspid valve repair which would increase his procedural risk with thrombectomy. Recommend continued conservative management with anticoagulation. This was discussed with patient and he is content with this plan. HPI Consult Data Date of Consult: 07/03/24 HPI Narrative HPI Narrative: SOWMYA PAREDES, is a 68 M who presents with pulmonary embolus. He relates that he was at work yesterday when he developed sudden shortness of breath and chest tightness and then subsequently had a syncopal episode in which he sustained a scalp laceration. He reports he regained consciousness quickly but still noted a lot of shortness of breath and chest tightness so presented to the ER. In the ER, he was saturating well with pulse ox ranging from 90-98 on room air. CTA chest revealed saddle embolism with mild right heart strain. He did have positive serial troponins 39, 975, 1530. He does have a history of prior DVT/PE in 2018 which he reports was related to a hospitalization due to an episode of cryoglobulinemic vasculitis. He had been chronically anticoagulated for this but was taken off of anticoagulation about 1 year ago. He also has a history of compound heterozygous MTHFR mutation, status post tricuspid valve repair. I also see him at the wound center for a right calf ulceration, he reports this continues to make positive progress. He denies any recent travel, illness, or other decrease in his usual level of activity. Saw patient today resting comfortably in bed near the end of his lower extremity ultrasound. He reports he feels much better today compared to yesterday. He has no chest tightness or shortness of breath at present. He has not been ambulating to know if he has any shortness of breath with exertion. 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 Non-rheumatic tricuspid valve insufficiency Nonrheumatic mitral (valve) insufficiency Nonrheumatic mitral (valve) prolapse Hydronephrosis Lung nodule History of pulmonary embolus (PE) (11/02/17) Essential hypertension Anemia 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) Compound heterozygous MTHFR mutation [id number] Hypoalbuminemia Gastritis Weight loss, unintentional Hypothyroid DDD (degenerative disc disease), lumbar Segmental and somatic dysfunction of pelvic region Segmental and somatic dysfunction of lumbar region Umbilical hernia without mention of obstruction or gangrene Home Medications ?Medication ?Instructions ?Recorded ?Last Taken ?Type fluticasone propionate 50 1 spray NASAL BID PRN Allergies 12/13/18 Unknown History mcg/actuation nasal spray,suspension prednisolone acetate (PF) 1 % eye 1 drp LEFT EYE QHS 06/15/20 07/01/24 History drops,suspension levothyroxine 50 mcg tablet 50 mcg PO DAILY 08/27/21 07/02/24 History cholecalciferol (vitamin D3) 25 25 mcg PO DAILY 03/21/23 07/02/24 History mcg (1,000 unit) tablet carvedilol 6.25 mg tablet 6.25 mg PO BID stop Metoprolol and 04/01/24 07/02/24 Rx start this medication #60 tabs dapagliflozin propanediol 10 mg 10 mg PO DAILY #30 tabs 04/29/24 07/02/24 Rx tablet (Farxiga) multivitamin 1 tab PO DAILY 04/29/24 07/02/24 History sacubitril 49 mg-valsartan 51 mg 1 tab PO BID #60 tabs 05/15/24 07/02/24 Rx tablet (Entresto) Allergy/AdvReac Type Severity Reaction Status Date / Time Hkajpcl-SEX-SdB Reductase AdvReac Severe Muscle Verified 07/02/24 14:56 Inhibitor (Gtmphoz-Zcw-Jyx Weakness Reductase Inhibitor) Family History Father Prostate cancer Heart disease Daughter Asthma Mother Aorta aneurysm Surgical History S/P left inguinal hernia repair Hx of right cataract extraction Hx of left cataract extraction History of right hip replacement (01/19/22) Hx of eye surgery History of right and left heart catheterization (10/19/18) History of tricuspid valve repair (10/23/18) History of facial surgery H/O mitral valve replacement (10/23/18) History of cataract surgery History of right inguinal hernia repair History of umbilical hernia repair Hx of appendectomy Social History Smoking Status: Never smoker alcohol intake: never substance use type: does not use caffeine: Yes what type of physical activity do you participate in: none frequency: does not exercise Physical Exam Const alert, oriented x3 and no apparent distress General Appearance: cooperative and comfortable HEENT normocephalic, head/scalp atraumatic, hearing grossly normal bilaterally, external ears normal and external nose normal Eyes EOMs intact bilaterally General Eye: normal appearance of both eyes Neck General: normal visual inspection and trachea midline Resp normal respiratory effort, normal air movement, no retractions and no use of accessory muscles Cardio regular rate and regular rhythm Extremity normal to inspection Skin no rashes or lesions noted Wounds: wounds noted Wound Narrative: Chronic right calf ulceration Neuro oriented x3, CN's II-XII intact bilaterally, moves all extremities, no focal motor deficits and no sensory deficits noted Psych mental status grossly normal, cooperative, affect normal and speech normal Appearance: grossly normal Attitude: calm and engaged Activity / Motor Behavior: appropriate eye contact Lab / Micro Data 07/03/24 05:13 07/03/24 05:13 Labs: Laboratory Results - last 24 hr 07/02/24 15:12: WBC 4.7, RBC 4.93, Hgb 13.6, Hct 42.8, MCV 86.8, MCH 27.6, MCHC 31.8 L, RDW Std Deviation 45.1 H, RDW Coeff of Enriqueta 14.3, Plt Count 113 L, MPV 9.5, Immature Gran % (Auto) 0.400, Neut % (Auto) 69.2, Lymph % (Auto) 15.0 L, Ware % (Auto) 12.2 H, Eos % (Auto) 2.6, Baso % (Auto) 0.6, Absolute Neuts (auto) 3.2, Absolute Lymphs (auto) 0.70 L, Nucleated RBC % 0, PT 14.9, INR 1.2, APTT 28.4, D-Dimer Quant (PE/DVT) > 20.00 H*, Sodium 141, Potassium 3.9, Chloride 112 H, Carbon Dioxide 25.0, Anion Gap 4 L, BUN 20 H, Creatinine 1.06, Estim Creat Clear Calc 63.65, Est GFR (MDRD) Af Amer 89, Est GFR (MDRD) Non-Af 73, BUN/Creatinine Ratio 18.9, Glucose 137 H, Calcium 9.2, Troponin I High Sens 39 07/02/24 17:40: Troponin I High Sens 975 H* 07/02/24 18:37: PT 15.4 H, INR 1.2, APTT 28.6 07/02/24 20:57: Troponin I High Sens 1530 H* 07/03/24 01:05: APTT 54.8 H 07/03/24 05:13: WBC 4.9, RBC 4.67, Hgb 13.0, Hct 41.3, MCV 88.4, MCH 27.8, MCHC 31.5 L, RDW Std Deviation 46.0 H, RDW Coeff of Enriqueta 14.5, Plt Count 104 L, MPV 9.6, Immature Gran % (Auto) 0.200, Neut % (Auto) 69.4, Lymph % (Auto) 15.4 L, Ware % (Auto) 11.3 H, Eos % (Auto) 3.1, Baso % (Auto) 0.6, Absolute Neuts (auto) 3.4, Absolute Lymphs (auto) 0.75 L, Nucleated RBC % 0, Sodium 141, Potassium 3.7, Chloride 112 H, Carbon Dioxide 23.0, Anion Gap 6, BUN 16, Creatinine 0.91, Estim Creat Clear Calc 89.02, Est GFR (MDRD) Af Amer 106, Est GFR (MDRD) Non-Af 88, BUN/Creatinine Ratio 17.7, Glucose 98, Calcium 8.9, Phosphorus 3.4, Magnesium 2.1, Total Bilirubin 0.50, AST 20, ALT 25, Alkaline Phosphatase 72, Total Protein 6.6, Albumin 3.4, Globulin 3.2, Albumin/Globulin Ratio 1.1, TSH 2.210 07/03/24 07:45: APTT 55.6 H Imaging Radiology Impression Brain CT 07/02/24 15:15 IMPRESSION: Chronic involutional changes of the brain. No acute abnormality of the brain. Electronically Signed: Nathaniel Guzman MD at 16:51 EDT Reading Location ID and State: [facility] / ID , Service support , Chest CTA 07/02/24 17:54 IMPRESSION: Extensive bilateral pulmonary emboli including saddle embolus, and emboli in both main pulmonary arteries. Mild right ventricular strain. N.B. : The above Results were Read Back by Nathaniel Guzman MD to Kishan Sloiz DO, and understanding confirmed on 07/02/2024 19:07:14 (ET). Electronically Signed: Nathaniel Guzman MD at 19:09 EDT Reading Location ID and State: [facility] / ID , Service support , ADDENDUM: 07/02/24 1916 IMPRESSION: Extensive bilateral pulmonary emboli including saddle embolus, and emboli in both main pulmonary arteries. Mild right ventricular strain. N.B. : The above Results were Read Back by Nathaniel Guzman MD to Kishan Soliz DO, and understanding confirmed on 07/02/2024 19:07:14 (ET). Electronically Signed: Nathaniel Guzman MD at 19:09 EDT , Charges/Coding Visit Charges Inpatient E&M: 98576 Init Hosp L2
[2024-07-03 09:25] VITALS: BP 125/90; PULSE 62; RESP 16; TEMP 36.4; O2SAT 97
[2024-07-03] MEDS: Carvedilol 6.25 MG Tablet PO ×2 (09:37→21:30)
[2024-07-03] MEDS: SACUBITRIL/VALSARTAN 49-51 MG TABLET 1 EACH PO ×2 (09:37→21:30)
[2024-07-03] MEDS: Famotidine 20 MG Tablet PO ×2 (09:37→21:30)
[2024-07-03] MEDS: Cholecalciferol (VIT D3) 25 MCG TABLET (1,000 UNITS) PO (09:37)
[2024-07-03] MEDS: Multivitamins,Therapeutic Tablet 1 TABLET PO (09:37)
--- NOTE | 2024-07-03 10:40 | CASEMGMT ---
RN CM Face to Face with patient for initial transition planning/care coordination assessment. RN CM introduced self and role at [facility]. Patient sitting in chair, alert and oriented. Patient willing to participate in assessment and is able to answer all questions appropriately. Care providers, pharmacy, and demographics verified. Strata: 2 PCP: Claude Specialists: Polo, petrographer; Daryn, surgeon Preferred Pharmacy: [facility] [place] [facility] [place] [facility] Prescription Benefit: yes Living Will/HPOA: yes, Shelby Olivares LNOK: Living Arrangements: Patient lives with in a 2 story home. Patient is independent and able to ambulate stairs. Transportation: self, mother DME/HHC: Patient has cane, walker, cpap, and raised toilet at home. Patient has had HHC in the past. No previous SNF. Patient wishes to discharge home, denies need for home health at this time. Patient states he has no further needs or concerns at this time. CM to follow for discharge planning needs that may arise. Disposition Plan: Patient to discharge home with family support and follow-up plans in place. Lucy BAUER, RN, CM
[2024-07-03 10:48] LABS: BNP,B-Type NATRIURETIC PEPTIDE 371.8 pg/mL (0-100)
[2024-07-03] MEDS: FLU VACCINE **HIGH DOSE** TV 24-25 180 MCG/0.5 ML SYRINGE IM (12:36)
[2024-07-03] MEDS: 0.9% Normal Saline (1000mL) 1,000 ML 70 ML IV (12:42)
--- NOTE | 2024-07-03 13:49 | CASEMGMT ---
Social Work Pt has a living will and health care POA on file naming his Shelby Olivares. TIERRA Lobo
[2024-07-03 14:04] LABS: Partial Thromboplast Time 53.6 Seconds (24.1-36.2)
[2024-07-03 16:30] VITALS: BP 127/87; PULSE 65; RESP 16; TEMP 36.6; O2SAT 96
[2024-07-03 21:22] VITALS: BP 138/87; PULSE 58; RESP 16; TEMP 36.6; O2SAT 97
[2024-07-03] MEDS: prednisoLONE eye drops (5 mL) 1 DROP OPTH.BTL 1 DRP LEFT EYE (21:30)
[2024-07-03 22:47] LABS: Partial Thromboplast Time 58.3 Seconds (24.1-36.2)
[2024-07-03] MEDS: HEPARIN/D5w 25,000 UNITS 25,000 UNITS/250 ML IV.SOLN. 10 UNITS CONT INF (23:00)
[2024-07-04] MEDS: 0.9% Normal Saline (1000mL) 1,000 ML 70 ML IV (02:27)
[2024-07-04 03:20] VITALS: BP 121/81; PULSE 62; RESP 16; TEMP 36.3; O2SAT 94
[2024-07-04 04:44] LABS: Absolute Lymphocyte Count 0.69 X10^3/uL (0.83-4.51); Absolute Neutrophil Count 3.9 X10^3/uL (2.0-7.7); Basophil# 0.04 X10^3/uL; Basophil% 0.8 % (0-1); Eosinophil# 0.19 X10^3/uL; Eosinophils% 3.6 % (0-5); Hematocrit 41.7 % (40-54); Hemoglobin 13.2 g/dL (13.0-16.5); Lymphocyte # 0.69 X10^3/ul (0.83-4.51); Lymphocyte % 12.9 % (19-41); Mean Corp Hgb Conc 31.7 g/dL (32-36); Mean Corpuscular Hgb 27.6 pg (27.0-32.0); Mean Corpuscular Volume 87.2 fL (80-94); Mean Platelet Vol. 8.7 fl (6.2-12.0); Monocyte# 0.52 X10^3/uL; Monocyte% 9.8 % (0-10); NRBC Flagged by Analyzer 0 % (0-5); Neutrophil # 3.88 X10^3/uL (2.7-7.7); Neutrophil % 72.7 % (47-70); Platelet Count 104 K/mm3 (150-450); RBC Distribution Width CV 14.3 % (11.6-14.6); RBC Distribution Width SD 45.5 fl (35.1-43.9); Red Blood Count 4.78 M/mm3 (4.6-6.2); White Blood Count 5.3 K/mm3 (4.4-11.0)
[2024-07-04 04:51] LABS: Partial Thromboplast Time 56.3 Seconds (24.1-36.2)
[2024-07-04 04:55] LABS: Anion Gap 4 (5-15); BUN 12 mg/dL (7-18); BUN/Creat Ratio 11.8 RATIO (10-20); Calcium,Total 8.8 mg/dL (8.5-10.1); Chloride 109 mmol/L (98-107); Creatinine, Serum 1.02 mg/dL (0.70-1.30); EST Glomerular Filtration Rate 77 mL/min (>60); Est Glom Filt Rate - Afr Amer 93 mL/min (>60); Estimated Creatinine Clearance 79.42 ml/min; Glucose 97 mg/dL (74-106); Magnesium 1.9 mg/dL (1.6-2.6); Phosphorus 2.9 mg/dL (2.5-4.9); Potassium 3.8 mmol/L (3.5-5.1); Sodium Level 139 mmol/L (136-145)
[2024-07-04 06:00] VITALS: BMI 31.6
[2024-07-04] MEDS: Levothyroxine 50 MCG Tablet PO (06:33)
[2024-07-04 08:43] VITALS: BP 111/73; PULSE 77; RESP 16; TEMP 36.6; O2SAT 95
[2024-07-04] MEDS: Famotidine 20 MG Tablet PO ×2 (08:52→21:09)
[2024-07-04] MEDS: Carvedilol 6.25 MG Tablet PO ×2 (08:52→21:08)
[2024-07-04] MEDS: Cholecalciferol (VIT D3) 25 MCG TABLET (1,000 UNITS) PO (08:52)
[2024-07-04] MEDS: Multivitamins,Therapeutic Tablet 1 TABLET PO (08:52)
[2024-07-04] MEDS: SACUBITRIL/VALSARTAN 49-51 MG TABLET 1 EACH PO ×2 (08:52→21:08)
--- NOTE | 2024-07-04 08:56 | PN.HOSP_ITS ---
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 No new events. Objective Data Objective Data Vital Signs: Vital Signs Temp Pulse Resp BP Pulse Ox O2 Del Method 36.6 C 77 16 111/73 95 Room Air 07/04/24 08:43 07/04/24 08:43 07/04/24 08:43 07/04/24 08:43 07/04/24 08:43 07/04/24 08:43 Oxygen Delivery Method Room Air Weight: 100.301 kg Body Mass Index (BMI) 31.6 Intake & Output: Intake and Output for Last 24 Hours 07/02/24 07/03/24 07/04/24 23:59 23:59 23:59 Intake Total 1700.00 / 1950.00 1212.5 / 1212.5 Output Total 350 / 350 Balance 1350.00 / 1600.00 1212.5 / 1212.5 Lab / Micro Data 07/04/24 04:33 07/04/24 04:33 Labs: Laboratory Results - last 24 hr 07/03/24 05:13: B-Natriuretic Peptide 371.8 H 07/03/24 13:43: APTT 53.6 H 07/03/24 21:38: APTT Cancelled 07/03/24 22:22: APTT 58.3 H 07/04/24 04:33: WBC 5.3, RBC 4.78, Hgb 13.2, Hct 41.7, MCV 87.2, MCH 27.6, MCHC 31.7 L, RDW Std Deviation 45.5 H, RDW Coeff of Enriqueta 14.3, Plt Count 104 L, MPV 8.7, Immature Gran % (Auto) 0.200, Neut % (Auto) 72.7 H, Lymph % (Auto) 12.9 L, Gilmer % (Auto) 9.8, Eos % (Auto) 3.6, Baso % (Auto) 0.8, Absolute Neuts (auto) 3.9, Absolute Lymphs (auto) 0.69 L, Nucleated RBC % 0, APTT 56.3 H, Sodium 139, Potassium 3.8, Chloride 109 H, Carbon Dioxide 26.0, Anion Gap 4 L, BUN 12, Creatinine 1.02, Estim Creat Clear Calc 79.42, Est GFR (MDRD) Af Amer 93, Est GFR (MDRD) Non-Af 77, BUN/Creatinine Ratio 11.8, Glucose 97, Calcium 8.8, Phosphorus 2.9, Magnesium 1.9 Radiography Diagnostic Testing: Radiology Impression Echocardiogram 07/02/24 20:43 Interpretation Summary Normal LV size. Left ventricular systolic function is normal. The left ventricular ejection fraction is 55 %. Apical sparing pattern, consistent with pulmonary embolism Moderately dilated right ventricle. Moderate global right ventricular systolic dysfunction. Stage 1 diastolic dysfunction. An annuloplasty ring is noted in the tricuspid position. Ordering Physician: Donavon Wakefield Referring Physician: Wade Arce Chi Performed By: Carissa Mustafa RDCS Venous Doppler Study 07/02/24 20:43 Interpretation Summary Acute deep vein thrombosis is noted in the left femoral vein, popliteal vein, tibioperoneal trunk vein, posterior tibial vein. Deep veins of the left lower extremity are patent and compressible segmentally. There is no evidence of left lower extremity deep vein thrombosis. The bilateral great saphenous veins appear patent and compressible segmentally. Ordering Physician: Donavon Wakefield Referring Physician: Wade Arce Chi Performed By: Jacinda Rogers RDCS, RVT Physical Exam Const alert and no apparent distress HEENT head/scalp atraumatic and moist oral mucous membranes Resp normal respiratory effort, no retractions, no use of accessory muscles and clear to auscultation bilaterally Cardio regular rate, regular rhythm, S1 normal heart sound and S2 normal heart sound Assessment & Plan Assessment/Plan (1) Saddle pulmonary embolus: QUALIFIERS: Acute cor pulmonale presence: unspecified Chronicity: acute Qualified Code(s): I26.92 - Saddle embolus of pulmonary artery without acute cor pulmonale (2) Elevated troponin: (3) Syncope and collapse: (4) Respiratory insufficiency: (5) History of pulmonary embolism: (6) AMY (obstructive sleep apnea): (7) Postoperative hematoma: QUALIFIERS: Procedure type: genitourinary Surgical complication system/body Area: genitourinary Qualified Code(s): N99.840 - Postprocedural hematoma of a genitourinary system organ or structure following a genitourinary system procedure (8) Compound heterozygous MTHFR mutation [id number]: PLAN: Plan PE * extensive bilateral PE with saddle embolus and emboli in both main pulmonary arteries. Mild RV strain. * on heparin gtt * Vascular and pulm consultation * echo shows an EF 55%, moderately dilated RV. * Not a candidate for embolectomy at this time. * Duplex lower extremity showed acute DVT in the left femoral vein, popliteal vein, tibioperoneal trunk vein, posterior tibial vein. NSTEMI * type II event given extensive PE. * No additional workup at this time. Syncope * 2/2 PE. Monitor Chronic conditions: * Recent robot-assisted Left inguinal hernia repair with mesh on 04/04/[address] Stearns of general surgery with postoperative Left scrotal hematoma that is ~4.8 cm on ultrasound that is predominantly fluid with septations adding to the medical complexity of #1 - #3 - Noted. We will inform Dr. Stearns that his patient has been admitted with a potentially life threatening PE. * History of compound heterozygous MTHFR mutation likely contributing to PE * Essential hypertension - Continue home regimen plus give prn Hydralazine IV for systolic blood pressure > 160 mmHg. * Hypothyroidism - Resume Synthroid and check TSH. * AMY; on CPAP - Maintain nocturnal CPAP as before. * History of nonrheumatic tricuspid insufficiency; s/p tricuspid valve repair (2019) VTE prophylaxis not indicated as patient is already anticoagulated Disposition: Will monitor overnight, if no events, plan to discharge on 07/05. Charges/Coding Visit Charges Inpatient E&M: 05979 Subs Hosp L2
--- NOTE | 2024-07-04 09:16 | PCM.PN.SRG ---
Subjective Subjective Mr. Olivares was seen sitting up in the bedside chair this morning. He denied any shortness of breath, chest pain, palpitations, dizziness/lightheadedness. He has been about 96 to 97% oxygen saturation on room air at rest. Later in the morning, he had his walking oximetry test which he passed with 94% oxygen saturation on room air with ambulation. Objective Data Objective Data Vital Signs: Vital Signs Temp Pulse Resp BP Pulse Ox O2 Del Method 97.9 F 77 16 111/73 95 Room Air 07/04/24 08:43 07/04/24 08:43 07/04/24 08:43 07/04/24 08:43 07/04/24 08:43 07/04/24 08:43 Oxygen Delivery Method Room Air Weight: 221 lb 2 oz Body Mass Index (BMI) 31.6 Intake & Output: Intake and Output for Last 24 Hours 07/02/24 07/03/24 07/04/24 23:59 23:59 23:59 Intake Total 1700.00 / 1950.00 1212.5 / 1212.5 Output Total 350 / 350 Balance 1350.00 / 1600.00 1212.5 / 1212.5 Lab / Micro Data 07/04/24 04:33 07/04/24 04:33 Labs: Laboratory Results - last 24 hr 07/03/24 05:13: B-Natriuretic Peptide 371.8 H 07/03/24 13:43: APTT 53.6 H 07/03/24 21:38: APTT Cancelled 07/03/24 22:22: APTT 58.3 H 07/04/24 04:33: WBC 5.3, RBC 4.78, Hgb 13.2, Hct 41.7, MCV 87.2, MCH 27.6, MCHC 31.7 L, RDW Std Deviation 45.5 H, RDW Coeff of Enriqueta 14.3, Plt Count 104 L, MPV 8.7, Immature Gran % (Auto) 0.200, Neut % (Auto) 72.7 H, Lymph % (Auto) 12.9 L, Kimball % (Auto) 9.8, Eos % (Auto) 3.6, Baso % (Auto) 0.8, Absolute Neuts (auto) 3.9, Absolute Lymphs (auto) 0.69 L, Nucleated RBC % 0, APTT 56.3 H, Sodium 139, Potassium 3.8, Chloride 109 H, Carbon Dioxide 26.0, Anion Gap 4 L, BUN 12, Creatinine 1.02, Estim Creat Clear Calc 79.42, Est GFR (MDRD) Af Amer 93, Est GFR (MDRD) Non-Af 77, BUN/Creatinine Ratio 11.8, Glucose 97, Calcium 8.8, Phosphorus 2.9, Magnesium 1.9 Radiography Diagnostic Testing: Radiology Impression Echocardiogram 07/02/24 20:43 Interpretation Summary Normal LV size. Left ventricular systolic function is normal. The left ventricular ejection fraction is 55 %. Apical sparing pattern, consistent with pulmonary embolism Moderately dilated right ventricle. Moderate global right ventricular systolic dysfunction. Stage 1 diastolic dysfunction. An annuloplasty ring is noted in the tricuspid position. Ordering Physician: Donavon Wakefield Referring Physician: Wade Arce Chi Performed By: Carissa Mustafa RDCS Venous Doppler Study 07/02/24 20:43 Interpretation Summary Acute deep vein thrombosis is noted in the left femoral vein, popliteal vein, tibioperoneal trunk vein, posterior tibial vein. Deep veins of the left lower extremity are patent and compressible segmentally. There is no evidence of left lower extremity deep vein thrombosis. The bilateral great saphenous veins appear patent and compressible segmentally. Ordering Physician: Donavon Wakefield Referring Physician: Wade Arce Chi Performed By: Jacinda Rogers RDCS, RVT Physical Exam Const alert, oriented x3 and no apparent distress General Appearance: cooperative and comfortable HEENT normocephalic, head/scalp atraumatic, hearing grossly normal bilaterally, external ears normal and external nose normal Eyes EOMs intact bilaterally General Eye: normal appearance of both eyes Neck General: normal visual inspection and trachea midline Resp normal respiratory effort, normal air movement, no retractions and no use of accessory muscles Cardio regular rate and regular rhythm Extremity normal to inspection Skin no rashes or lesions noted Wounds: wounds noted Wound Narrative: Chronic right calf ulceration Neuro oriented x3, CN's II-XII intact bilaterally, moves all extremities, no focal motor deficits and no sensory deficits noted Psych mental status grossly normal, cooperative, affect normal and speech normal Appearance: grossly normal Attitude: calm and engaged Activity / Motor Behavior: appropriate eye contact Assessment & Plan Assessment/Plan (1) Saddle pulmonary embolus: QUALIFIERS: Chronicity: acute Acute cor pulmonale presence: unspecified Qualified Code(s): I26.92 - Saddle embolus of pulmonary artery without acute cor pulmonale PLAN: Plan He remains stable, saturating well on room air and asymptomatic. Plan is for ultimate transition to oral anticoagulation and for this to be continued indefinitely. Discharge planning as per primary team. Charges/Coding Visit Charges Inpatient E&M: 53499 Subs Hosp L1
[2024-07-04 10:08] VITALS: O2SAT 94; O2SAT 96
[2024-07-04 16:14] VITALS: BP 129/89; PULSE 62; RESP 16; TEMP 36.7; O2SAT 97
[2024-07-04] MEDS: 0.9% Saline Lock 10 ML Syringe IV ×2 (16:33→21:09)
[2024-07-04] MEDS: Empagliflozin 25 MG Tablet PO (16:33)
[2024-07-04 21:00] VITALS: BP 126/88; PULSE 70; RESP 16; TEMP 36.8; O2SAT 96
[2024-07-04] MEDS: prednisoLONE eye drops (5 mL) 1 DROP OPTH.BTL 1 DRP LEFT EYE (21:09)
[2024-07-05] MEDS: HEPARIN/D5w 25,000 UNITS 25,000 UNITS/250 ML IV.SOLN. 10 UNITS CONT INF (00:02)
[2024-07-05 03:25] VITALS: BP 120/82; PULSE 63; RESP 16; TEMP 36.6; O2SAT 94; BMI 31.6
[2024-07-05] MEDS: Levothyroxine 50 MCG Tablet PO (05:30)
[2024-07-05 07:33] LABS: Absolute Neutrophil Count 4.3 X10^3/uL (2.0-7.7); Basophil# 0.04 X10^3/uL; Basophil% 0.7 % (0-1); Eosinophils% 1.7 % (0-5); Hematocrit 39.5 % (40-54); Hemoglobin 12.7 g/dL (13.0-16.5); Mean Corp Hgb Conc 32.2 g/dL (32-36); Mean Corpuscular Hgb 27.7 pg (27.0-32.0); Mean Corpuscular Volume 86.1 fL (80-94); Monocyte# 0.67 X10^3/uL; Monocyte% 11.5 % (0-10); NRBC Flagged by Analyzer 0 % (0-5); Neutrophil # 4.26 X10^3/uL (2.7-7.7); Neutrophil % 73.4 % (47-70); Platelet Count 111 K/mm3 (150-450); RBC Distribution Width CV 14.4 % (11.6-14.6); RBC Distribution Width SD 44.5 fl (35.1-43.9); Red Blood Count 4.59 M/mm3 (4.6-6.2); White Blood Count 5.8 K/mm3 (4.4-11.0)
[2024-07-05 07:53] VITALS: BP 124/93; PULSE 60; RESP 18; TEMP 36.8; O2SAT 95
[2024-07-05] MEDS: Multivitamins,Therapeutic Tablet 1 TABLET PO (07:57)
[2024-07-05] MEDS: SACUBITRIL/VALSARTAN 49-51 MG TABLET 1 EACH PO (07:57)
[2024-07-05] MEDS: Famotidine 20 MG Tablet PO (07:57)
[2024-07-05] MEDS: Cholecalciferol (VIT D3) 25 MCG TABLET (1,000 UNITS) PO (07:57)
[2024-07-05] MEDS: Carvedilol 6.25 MG Tablet PO (07:58)
[2024-07-05] MEDS: Empagliflozin 25 MG Tablet PO (07:58)
[2024-07-05 08:07] LABS: Anion Gap 7 (5-15); BUN 14 mg/dL (7-18); BUN/Creat Ratio 15.3 RATIO (10-20); Calcium,Total 8.9 mg/dL (8.5-10.1); Chloride 110 mmol/L (98-107); Creatinine, Serum 0.92 mg/dL (0.70-1.30); EST Glomerular Filtration Rate 87 mL/min (>60); Est Glom Filt Rate - Afr Amer 105 mL/min (>60); Estimated Creatinine Clearance 88.73 ml/min; Glucose 95 mg/dL (74-106); Potassium 3.7 mmol/L (3.5-5.1); Sodium Level 140 mmol/L (136-145)
[2024-07-05 08:36] LABS: Partial Thromboplast Time 48.4 Seconds (24.1-36.2)
[2024-07-05] MEDS: APIXABAN 5 MG TABLET 10 MG PO (08:53)
--- NOTE | 2024-07-05 09:05 | DS.PCM_ITS ---
Providers Date of Admission: 07/02/24 Primary Care Physician: Dr. Wade Arce MD Consultations 07/02/24 20:43 Consult: Vascular Surgery Routine Consulting Provider: Compa Riojas Reason for Consult: Saddle PE with Right Heart Strain. EMERGENT Consult: No MD Notified: Yes Date Notified: 07/03/24 Time Notified: 08:30 Method of Notification: Text 07/03/24 09:04 Consult: Tool Coordinator / Pulmonary Medicine Routine Consulting Provider: Intensivists/Pulmonary Med Reason for Consult: PE EMERGENT Consult: No MD Notified: Yes Date Notified: 07/03/24 Time Notified: 09:04 Method of Notification: Verbal Reason For Visit: PULMONARY EMBOLISM NSTEMI SYNCOPE Diagnosis Discharge Diagnosis (1) Saddle pulmonary embolus: Status: Acute Code(s): I26.92 - Saddle embolus of pulmonary artery without acute cor pulmonale Qualifiers: Chronicity: acute Acute cor pulmonale presence: unspecified Qualified Code(s): I26.92 - Saddle embolus of pulmonary artery without acute cor pulmonale (2) Elevated troponin: Status: Acute Code(s): R79.89 - Other specified abnormal findings of blood chemistry (3) Syncope and collapse: Status: Acute Code(s): R55 - Syncope and collapse (4) Respiratory insufficiency: Status: Acute Code(s): R06.89 - Other abnormalities of breathing (5) History of pulmonary embolism: Status: Acute Code(s): Z86.711 - Personal history of pulmonary embolism (6) AMY (obstructive sleep apnea): Status: Acute Code(s): G47.33 - Obstructive sleep apnea (adult) (pediatric) (7) Postoperative hematoma: Status: Acute Qualifiers: Surgical complication system/body Area: genitourinary Procedure type: g enitourinary Qualified Code(s): N99.840 - Postprocedural hematoma of a genitourinary system organ or structure following a genitourinary system procedure (8) Compound heterozygous MTHFR mutation [id number]: Status: Chronic Code(s): E72.12 - Methylenetetrahydrofolate reductase deficiency Plan PE * extensive bilateral PE with saddle embolus and emboli in both main pulmonary arteries. Mild RV strain. * on heparin gtt * Vascular and pulm consultation * echo shows an EF 55%, moderately dilated RV. * Not a candidate for embolectomy at this time. * Duplex lower extremity showed acute DVT in the left femoral vein, popliteal vein, tibioperoneal trunk vein, posterior tibial vein. * Discharge with apixaban, will be on apixaban life-long NSTEMI * type II event given extensive PE. * No additional workup at this time. Syncope * 2/2 PE. Monitor Chronic conditions: * Recent robot-assisted Left inguinal hernia repair with mesh on 04/04/[address] Stearns of general surgery with postoperative Left scrotal hematoma that is ~4.8 cm on ultrasound that is predominantly fluid with septations adding to the medical complexity of #1 - #3 - Noted. We will inform Dr. Stearns that his patient has been admitted with a potentially life threatening PE. * History of compound heterozygous MTHFR mutation likely contributing to PE * Essential hypertension - Continue home regimen plus give prn Hydralazine IV for systolic blood pressure > 160 mmHg. * Hypothyroidism - Resume Synthroid and check TSH. * AMY; on CPAP - Maintain nocturnal CPAP as before. * History of nonrheumatic tricuspid insufficiency; s/p tricuspid valve repair (2019) VTE prophylaxis not indicated as patient is already anticoagulated Disposition: To home. Follow up with vascular surgery. Medications at Discharge Home Medications fluticasone propionate 50 mcg/actuation nasal spray,suspension 1 spray NASAL BID PRN Allergies 12/13/18 prednisolone acetate (PF) 1 % eye drops,suspension 1 drp LEFT EYE QHS 06/15/20 levothyroxine 50 mcg tablet 50 mcg PO DAILY 08/27/21 cholecalciferol (vitamin D3) 25 mcg (1,000 unit) tablet 25 mcg PO DAILY 03/21/23 carvedilol 6.25 mg tablet 6.25 mg PO BID stop Metoprolol and start this medication #60 tabs 04/01/24 dapagliflozin propanediol 10 mg tablet (Farxiga) 10 mg PO DAILY #30 tabs 04/29/24 multivitamin 1 tab PO DAILY 04/29/24 sacubitril 49 mg-valsartan 51 mg tablet (Entresto) 1 tab PO BID #60 tabs 05/15/24 apixaban 5 mg (74 tabs) tablets in a dose pack 5 mg PO BID #74 tabs 07/05/24 Hospital Course Operations None Procedures 2-D Echocardiogram Summary of Care Provided Minutes Spent on Discharge: 32 Hospital Course: Patient presents with a syncopal episode. Patient presented and was found to have very large saddle pulmonary embolism but was actually hemodynamically stable. Patient was seen by vascular surgery for possibility of embolectomy but given the patient's stable status, was not deemed a candidate and just treated with anticoagulation. He was treated with heparin drip while he was here. He did have an echocardiogram that showed normal EF of 55% and moderately dilated right ventricle. Patient has been on room air and is doing well. Patient anxious to get back to work but will return to work this coming Monday. Patient advised to get back into his normal routine slowly and to listen to his body if he is feeling dizzy, short of breath etc., to take a break or be further evaluated. Physical Exam Const alert and no apparent distress HEENT HEENT Narrative: Stable posterior scalp incision intact without erythema. Resp normal respiratory effort and no retractions Weight / BMI Weight Weight: 100.4 kg Body Mass Index (BMI) 31.6 ABG / Lab / Microbiology Data 07/05/24 06:38 07/05/24 06:38 Laboratory: Laboratory Results - last 24 hr 07/05/24 06:38: WBC 5.8, RBC 4.59 L, Hgb 12.7 L, Hct 39.5 L, MCV 86.1, MCH 27.7, MCHC 32.2, RDW Std Deviation 44.5 H, RDW Coeff of Enriqueta 14.4, Plt Count 111 L, MPV 10.0, Immature Gran % (Auto) 0.700, Neut % (Auto) 73.4 H, Lymph % (Auto) 12.0 L, [place] % (Auto) 11.5 H, Eos % (Auto) 1.7, Baso % (Auto) 0.7, Absolute Neuts (auto) 4.3, Absolute Lymphs (auto) 0.70 L, Nucleated RBC % 0, APTT 48.4 H, Sodium 140, Potassium 3.7, Chloride 110 H, Carbon Dioxide 23.0, Anion Gap 7, BUN 14, Creatinine 0.92, Estim Creat Clear Calc 88.73, Est GFR (MDRD) Af Amer 105, Est GFR (MDRD) Non-Af 87, BUN/Creatinine Ratio 15.3, Glucose 95, Calcium 8.9 D/C Instructions Discharge Diet: No restrictions Return to work on: 07/10/24 (Do not push yourself in regards activities at work or at home.) Meaningful Use Info Meaningful Use Meaningful Use Diagnoses (Choose all that apply): None applicable Ischemic Stroke Statin Dosing Therapy Reference: STATIN DOSE THERAPY REFERENCE: * Patients > 75 years receive moderate or high dose statin therapy. * Patients 75 years or YOUNGER should receive HIGH intensity statin dose unless contraindicated. You will be required to document reason for non-treatment if statin daily dose does not meet guidelines. HIGH DOSE STATIN THERAPY DAILY Atorvastatin > than or = to 40 mg Rosuvastatin > than or = to 20 mg Amlodipine + Atorvastatin > than or = to 2.5/40 mg Ezetimibe + Simvastatin 10/80 mg Simvastatin 80mg Discharge Plan Admission Admit Date/Time: 07/02/24 19:53 Primary Reason for Your Visit: Pulmonary embolism Attending Provider: Compa Spence Primary Care Provider: Wade rAce Chi Consulting Providers: Donavon Wakefield; Compa Riojas; Lee Perkins; Salu Rivers; Slade Hamm; Donavon Melvin; Shashi Baig; Guillermo Abdalla; Mary Hernandez; Sergey Saeed; Juan Lester; Griselda Hernandez; Nicole Branham; Bismark Bob; Natan Laguna; Robel Rojas; Jed Cunha; Oneal Franks; Miguel Ángel Elliott Instructions Additional Instructions / Restrictions: You have a large pulmonary embolism in your lungs as well as blood clots in your legs. Treatment is going to be lifelong anticoagulation with apixaban. Because of this blood clot you not can be able to do the activities you are doing previously before this so I do advise you to use ease back into your routine and if you are feeling short of breath, dizzy lightheaded, take a break. Follow-up with a physician in about a week's time to have your ramiro removed. Follow-up with wound care on July 11 at 115 for follow-up for your wound but also to have your ramiro removed. Discharge Orders/Prescriptions Prescriptions: New apixaban 5 mg (74 tabs) tablets,dose pack 5 mg PO BID Qty: 74 0RF Rx Instructions: 2 tablets (10 mg) twice daily for 1 week and then 1 tablet (5 mg) twice daily thereafter. Continued levothyroxine 50 mcg tablet 50 mcg PO DAILY cholecalciferol (vitamin D3) 25 mcg (1,000 unit) tablet 25 mcg PO DAILY dapagliflozin propanediol [Farxiga] 10 mg tablet 10 mg PO DAILY Qty: 30 11RF fluticasone propionate 1 SPRAY spray,suspension 1 spray NASAL BID PRN (Reason: Allergies) prednisolone acetate (PF) 5 ML drops,suspension 1 drp LEFT EYE QHS multivitamin Tablet 1 tab PO DAILY carvedilol 6.25 mg tablet 6.25 mg PO BID Qty: 60 11RF Rx Instructions: must administer with a meal/food Entresto 49-51 mg tablet 1 tab PO BID Qty: 60 11RF Referrals / Follow Up: Wade Arce Chi, MD [Primary Care Provider] - Within 2 Weeks Disposition Disposition (needs filled in before D/C Order can be placed): Home, Self Care Charges/Coding Visit Charges Inpatient E&M: 86500 Disch Hosp >30min
--- NOTE | 2024-07-05 10:47 | CASEMGMT ---
Patient has order for discharge. Patient is discharging on Eliquis, copay is $20. RN CM in to discuss needs at discharge. RN CM updated patient of Eliquis copay. Patient denies needs or help at discharge. Patient had no further questions or concerns.
== END 2024-07-05 12:28 | disposition home or self-care (01) | DRG 175 ==
LOC: ED 15:34 → PCU 20:06
PROVIDERS: Internal Medicine Critical Care Medicine; Admitting Provider Internal Medicine; Emergency Provider Emergency Medicine; PCP Family Medicine Geriatric Medicine
DX: I26.92 Saddle embolus of pulmonary artery without acute cor pulmonale (principal); I21.A1 Myocardial infarction type 2; E72.12 Methylenetetrahydrofolate reductase deficiency; L97.219 Non-pressure chronic ulcer of right calf with unspecified severity; N99.840 Postprocedural hematoma of a genitourinary system organ or structure following a genitourinary system procedure; I82.412 Acute embolism and thrombosis of left femoral vein; I82.432 Acute embolism and thrombosis of left popliteal vein; I82.442 Acute embolism and thrombosis of left tibial vein; I82.452 Acute embolism and thrombosis of left peroneal vein; E03.9 Hypothyroidism, unspecified; I10 Essential (primary) hypertension; Z95.2 Presence of prosthetic heart valve; G47.33 Obstructive sleep apnea (adult) (pediatric); S01.01XA Laceration without foreign body of scalp, initial encounter; R55 Syncope and collapse; Z23 Encounter for immunization; Z79.890 Hormone replacement therapy; Z79.899 Other long term (current) drug therapy
CPT/HCPCS: 36415; 70450; 71275; 80048; 80053; 83735; 83880; 84100; 84443; 84484; 85025; 85379; 85610; 85730; 90662; 90715; 93005; 93306; 93970; 99285; J7030; Q9967; A4216; J2405

== ENCOUNTER → 2024-07-22 | Outpatient (CLI) | payer OTHER, MEDICARE, SELFPAY ==
[2024-07-22 11:59] LABS: Absolute Lymphocyte Count 0.66 X10^3/uL (0.83-4.51); Absolute Neutrophil Count 3.2 X10^3/uL (2.0-7.7); Basophil# 0.02 X10^3/uL; Basophil% 0.5 % (0-1); Eosinophil# 0.07 X10^3/uL; Eosinophils% 1.6 % (0-5); Hematocrit 44.1 % (40-54); Hemoglobin 13.9 g/dL (13.0-16.5); Lymphocyte # 0.66 X10^3/ul (0.83-4.51); Lymphocyte % 14.9 % (19-41); Mean Corp Hgb Conc 31.5 g/dL (32-36); Mean Corpuscular Hgb 27.6 pg (27.0-32.0); Mean Corpuscular Volume 87.5 fL (80-94); Mean Platelet Vol. 9.9 fl (6.2-12.0); Monocyte# 0.42 X10^3/uL; Monocyte% 9.5 % (0-10); NRBC Flagged by Analyzer 0 % (0-5); Neutrophil # 3.24 X10^3/uL (2.7-7.7); Neutrophil % 73.3 % (47-70); Platelet Count 144 K/mm3 (150-450); RBC Distribution Width CV 14.6 % (11.6-14.6); RBC Distribution Width SD 46.4 fl (35.1-43.9); Red Blood Count 5.04 M/mm3 (4.6-6.2); White Blood Count 4.4 K/mm3 (4.4-11.0)
[2024-07-22 13:17] LABS: ALB/GLOB Ratio 0.9 RATIO (0.9-2.4); AST(SGOT) 19 U/L (15-37); Alanine Aminotransfer ALT/SGPT 25 U/L (16-61); Albumin, Serum 3.5 g/dL (3.2-5.0); Alkaline Phosphatase 85 U/L (45-117); Anion Gap 5 (5-15); BUN 14 mg/dL (7-18); BUN/Creat Ratio 13.2 RATIO (10-20); Calcium,Total 9.4 mg/dL (8.5-10.1); Chloride 108 mmol/L (98-107); Cholesterol 167 mg/dL (200); Creatinine, Serum 1.06 mg/dL (0.70-1.30); EST Glomerular Filtration Rate 73 mL/min (>60); Est Glom Filt Rate - Afr Amer 89 mL/min (>60); Globulin 3.9 g/dL (2.2-4.2); Glucose 112 mg/dL (74-106); High Density Lipoprotein 51 mg/dL; Potassium 5.2 mmol/L (3.5-5.1); Protein, Total 7.4 g/dL (6.4-8.2); Sodium Level 140 mmol/L (136-145); Triglycerides 146 mg/dL; Uric Acid 4.2 mg/dL (3.5-7.2); Very Low Density Lipoprotein 29 mg/dL (5-40)
== END | disposition home or self-care (01) ==
LOC: POLAB3 11:35
PROVIDERS: PCP Family Medicine Geriatric Medicine; Visit Provider Family Medicine Geriatric Medicine
DX: I10 Essential (primary) hypertension (principal); E78.5 Hyperlipidemia, unspecified; M10.9 Gout, unspecified; E55.9 Vitamin D deficiency, unspecified
CPT/HCPCS: 36415; 80053; 80061; 82306; 84443; 84550; 85025

== ENCOUNTER 2024-07-25 13:15 | Outpatient (RCR) | payer OTHER, MEDICARE, SELFPAY ==
[2024-07-09 00:40] VITALS: BP 121/86; PULSE 86; RESP 20; TEMP 36.3; BMI 31.8
[2024-07-11 13:19] VITALS: BP 123/75; PULSE 63; RESP 18; TEMP 35.9; BMI 31.8
--- NOTE | 2024-07-11 15:19 | PN.PCM_ITS ---
History of Present Illness Date of Service: 07/11/24 Chief Complaint: R calf wound History of Wound: Mr. Olayinka Guadalupe is a 68 y/o male who presents today for evaluation and management of a R calf wound as referred by Dr. Arce. He reports that at least 4 weeks ago, he accidentally dropped a utility knife and cut his R calf. At first, the wound was quite small, like a puncture but then over the next few weeks continued to enlarge. He developed increased pain and redness and presented to his PCP. He was initiated on antibiotics and referred here. He has one day left on his course of antibiotics. His symptoms have improved and the wound size has remained stable over this last week. Otherwise, he has been caring for this wound at home by applying triple antibiotic ointment and covering with a gauze dressing. He denies any prior history of non-healing wounds. He does have significant hem osiderin deposition in his bilateral lower legs but denies any confirmed venous insufficiency. He denies any history of VTE or varicose veins. He is not a smoker. He is not diabetic. He does not wear compression stockings. 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 Subjective Subjective Since his last OV, Olayinka was unfortunately admitted to [facility] for pulmonary embolism, acute RLE DVT. He was reinitiated on Eliquis. He does actually have a history of prior VTE and given this recurrence likely to be indefinitely anticoa gulated. He is tolerating Eliquis to this point, his PCP has provided refills. He is feeling much better, no SOB/CP/palpitations. Unfortunately, when the PE occured he did have a syncopal episode and hit his head obtaining a scalp lac which was closed with ramiro. The ramiro have now been in place for 10 days and need removal. He feels his wound has continued to improve. Objective Data Objective Data Vital Signs: Vital Signs Temp Pulse Resp BP O2 Del Method 96.7 F L 63 18 123/75 H Room Air 07/11/24 13:19 07/11/24 13:19 07/11/24 13:19 07/11/24 13:19 07/11/24 13:19 Oxygen Delivery Method Room Air Weight: 222 lb 6.819 oz Body Mass Index (BMI) 31.8 Charges/Coding Procedures Integumentary 111xxx-113xx: [id number] Inessa subq tissue 20 sq cm/< Physical Exam Const alert, oriented x3 and no apparent distress General Appearance: cooperative and comfortable HEENT normocephalic, hearing grossly normal bilaterally and external ears normal HEENT Narrative: Small scalp lac at the crown of his head, [address], well-healed. Eyes General Eye: normal appearance of both eyes Neck General: normal visual inspection and trachea midline Resp normal respiratory effort, no retractions and no use of accessory muscles Effort and Inspection: able to speak in complete sentences Extremity Extremity Narrative: trace lower extremity edema Skin Wounds: wounds noted Wound Narrative: R medial calf wound with granular base with moderate slough, now all one depth and quite superficial. There is no surrounding erythema, foul odor, significant drainage, focal edema/fluctuance/induration. Neuro oriented x3, moves all extremities and no focal motor deficits Psych mental status grossly normal, thought process normal, cooperative, affect normal, speech normal and activity/motor behavior normal Debridement Note Debridement Note Wound debrided: Right lower leg Laterality: Right Type of Debridement: Excisional debridement Anesthesia Used: 5% Lidocaine Gel Depth: Down to and including healthy tissue and in the subcutaneous layer Percentage of wound debrided: 100 Instrument Used: 5mm curette Tissue Removed: slough, devitalized tissue Severity: Fat Layer Exposed Amount of bleeding with debridement: Mild Bleeding Controlled with: Pressure Patient tolerated procedure: Patient tolerated procedure well Post-Debridement Measurements and Additional Note: Post-Debridement Measurements/Treatment TAMI - Nurse 1 - General Ulcer Assessment Start: 07/11/24 13:17 Freq: Status: Active Protocol: AHSAN Activity Type Activity Date Activity User E-sign Co-sign Detail Recorded Client Recorded Date Recorded By Document 07/11/24 13:19 [id number] 07/11/24 13:25 KW 07/11/24 13:19 - Today's Visit Information Type of service Follow-up Visit (Physician/HELP DESK CONSULTANT ) Arrival Mode Ambulatory Patient Identification Verified (Name & Yes ) Height and Weight Body Mass Index (BMI) 31.8 BMI Classification Obese Vital Signs Temperature (97.8 F-99.1 F) 96.7 F L Temperature Source Oral Pulse Rate (60-100) 63 Pulse Location Monitor Respiratory Rate (12-18) 18 Respiratory rate source Observation Oxygen Delivery Method Room Air Blood Pressure (90/60-120/80) 123/75 H Blood Pressure Mean (mm Hg) 91 Source Monitor Position Semi-Fowlers Blood Pressure Location Right Arm History Since Last Visit- (Skip if this is Patient's initial visit) Have you changed medications since your Yes last visit? Any new allergies or adverse reactions No Had a fall/change in ADL's that may No increase risk of falls Signs or symptoms of abuse and/or No neglect since last visit Have you been in the hospital since your Yes last visit? Has dressing in place as prescribed Yes Has compression in place as prescribed Yes Has offloadiing in place as prescribed N/A Experienced any changes in pain level or No management Left Footwear Regular Shoe Right Footwear Regular Shoe Pain Scale: 0-10 Numeric Is Patient Pain Free? Yes WC - Nurse 1 - General Ulcer Measurement Start: 07/11/24 13:17 Freq: Status: Active Protocol: Activity Type Activity Date Activity User E-sign Co-sign Detail Recorded Client Recorded Date Recorded By Document 07/11/24 13:19 KW [id number] 07/11/24 13:25 KW 07/11/24 13:19 Wound Center Nurse 1 #1 R Med LE -Current Size (cm) - Length 0.7 -Current Size (cm) - Width 0.5 -Current Size (cm) - Depth 0.1 -Total Square Cm 0.35 -Date of Last Picture (Recall this 07/11/24 field) -Exudate Amt Small -Exudate Type Serosanguineous -Wound Margin Distinct, Outline Attached -Granulation Amt Large (67-100%) -Granulation Quality Red -Necrosis Amt Small (1-33%) -Necrotic Tissue Type Adherent Slough -Texture (Paige-wound Skin Appearance) Assessed -Moisture (Paige-wound Skin Appearance) Assessed -Color (Paige-wound Skin Appearance) Assessed, Ecchymosis -Temperature (Paige-wound Skin No Abnormality Appearance) (Pt Warm) -Tenderness on Palpation (Paige-wound No Skin Appearance) -Ulcer Cleansing Rinsed/ Irrigated with Saline -Foul Odor after Cleansing No -Anesthetic Used 5% Lidocaine Gel WC - Nurse 2 - General Ulcer CM Notes Start: 07/11/24 13:17 Freq: Status: Active Protocol: Activity Type Activity Date Activity User E-sign Co-sign Detail Recorded Client Recorded Date Recorded By Document 07/11/24 13:32 GM [id number] 07/11/24 13:38 07/11/24 13:32 Wound Center Nurse 2 -Time 13:36 -Correct Patient Yes -Correct Side, Site, Position Yes -Correct Procedure Yes -Procedure Performed Yes -Type of Procedure Debridement -Clinical Debridement Subcutaneous -Tissue Removed Subcutaneous -Post Debridement (cm) - Length 0.4 -Post Debridement (cm) - Width 0.4 -Post Debridement (cm) - Depth 0.1 -Total Square (Post) (cm) 0.16 -Area of Debridement (cm) - Length 0.4 -Area of Debridement (cm) - Width 0.4 -Total Square (Area) (cm) 0.16 -Tunneling No -Undermining/Tunneling No -Circular Undermining No -Wound/Ulcer Outcome Not Healed -Ulcer Cleansing Rinsed/ Irrigated with Saline -Foul Odor after Cleansing No -Bioengineered Tissue No -Bleeding Controlled with Pressure -Treatment Response Procedure Tolerated Well -Debridement - Subq, 1st 20sq cm Yes Pain Scale: 0-10 Numeric Is Patient Pain Free? Yes - Nurse 3 - General Ulcer D/C NN Start: 07/11/24 13:17 Freq: Status: Active Protocol: Activity Type Activity Date Activity User E-sign Co-sign Detail Recorded Client Recorded Date Recorded By Document 07/11/24 13:48 [id number] 07/11/24 13:49 07/11/24 13:48 Wound Care Center Nurse 3 #1 R Med LE -Primary Dressing Applied Mepilex Border, Promogran Gema Matter -Mepilex Border 1 -Promogran Gema Matter 1 ble -Other personal compression stockings Pain Scale: 0-10 Numeric Is Patient Pain Free? Yes Assessment/Plan Assessment/Plan (1) Scalp laceration: CODE(S): S01.01XA - Laceration without foreign body of scalp, initial encounter PLAN: I removed the two ramiro from his scalp laceration. There was no bleeding. He tolerated this very well. The laceration is well healed. (2) Ulcer of right lower leg: CODE(S): L97.919 - Non-pressure chronic ulcer of unspecified part of right lower leg with unspecified severity PLAN: Wound started as a laceration to the R lower leg but has evolved into a nonpressure venous ucleration of the right lower leg with subcutaneous layer exposed PLAN: Plan Debridement was performed as above and he tolerated well. There were no signs/symptoms of infection on exam today. Size and depth are modestly improved this week. For wound care, continue to apply lightly-moistened Gema, cover with [place]-SAP dressing. With dressing changes, cleanse the area with antibacterial soap and water. He will continue use of measured compression stockings daily, leg elevation at times of rest, and avoidance of idle prolonged sitting/standing when possible. He will return to the wound center in 2 weeks or sooner as needed.
--- NOTE | 2024-07-16 11:42 | WC ---
PHOTO RIGHT MEDIAL LE 07/11/24
[2024-07-25 13:14] VITALS: BP 123/73; PULSE 62; RESP 18; TEMP 36.5; BMI 31.8
--- NOTE | 2024-07-25 13:30 | PN.PCM_ITS ---
History of Present Illness Date of Service: 07/25/24 Chief Complaint: R calf wound History of Wound: Mr. Olayinka Guadalupe is a 68 y/o male who presents today for evaluation and management of a R calf wound as referred by Dr. Arce. He reports that at least 4 weeks ago, he accidentally dropped a utility knife and cut his R calf. At first, the wound was quite small, like a puncture but then over the next few weeks continued to enlarge. He developed increased pain and redness and presented to his PCP. He was initiated on antibiotics and referred here. He has one day left on his course of antibiotics. His symptoms have improved and the wound size has remained stable over this last week. Otherwise, he has been caring for this wound at home by applying triple antibiotic ointment and covering with a gauze dressing. He denies any prior history of non-healing wounds. He does have significant hem osiderin deposition in his bilateral lower legs but denies any confirmed venous insufficiency. He denies any history of VTE or varicose veins. He is not a smoker. He is not diabetic. He does not wear compression stockings. 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 Subjective Subjective Plan has been doing well of the last 2 weeks. He thinks his wound is healed today. Objective Data Objective Data Vital Signs: Vital Signs Temp Pulse Resp BP O2 Del Method 97.7 F L 62 18 123/73 H Room Air 07/25/24 13:14 07/25/24 13:14 07/25/24 13:14 07/25/24 13:14 07/25/24 13:14 Oxygen Delivery Method Room Air Weight: 222 lb 6.819 oz Body Mass Index (BMI) 31.8 Charges/Coding Visit Charges Office Visits / Consults: [id number] OV L3 Est 20min Physical Exam Const alert, oriented x3 and no apparent distress General Appearance: cooperative and comfortable HEENT normocephalic, hearing grossly normal bilaterally and external ears normal HEENT Narrative: Small scalp lac at the crown of his head, [address], well-healed. Eyes General Eye: normal appearance of both eyes Neck General: normal visual inspection and trachea midline Resp normal respiratory effort, no retractions and no use of accessory muscles Effort and Inspection: able to speak in complete sentences Extremity Extremity Narrative: trace lower extremity edema Skin Wounds: wounds noted Wound Narrative: R medial calf wound is fully epithelialized today. Neuro oriented x3, moves all extremities and no focal motor deficits Psych mental status grossly normal, thought process normal, cooperative, affect normal, speech normal and activity/motor behavior normal Debridement Note Debridement Note No debridement was completed: No debridement was completed today Post-Debridement Measurements and Additional Note: Post-Debridement Measurements/Treatment WC - Nurse 1 - General Ulcer Assessment Start: 07/11/24 13:17 Freq: Status: Active Protocol: AHSAN Activity Type Activity Date Activity User E-sign Co-sign Detail Recorded Client Recorded Date Recorded By Document 07/11/24 13:19 KW [id number] 07/11/24 13:25 KW Document 07/25/24 13:14 KW [id number] 07/25/24 13:17 KW 07/11/24 07/25/24 13:19 13:14 WC - Today's Visit Information Type of service Follow-up Visit Follow-up Visit (Physician/COMMUNITY ADMINISTRATOR (Physician/COMMUNITY ADMINISTRATOR ) ) Arrival Mode Ambulatory Ambulatory Patient Identification Verified (Name & Yes Yes ) Height and Weight Body Mass Index (BMI) 31.8 31.8 BMI Classification Obese Obese Vital Signs Temperature (97.8 F-99.1 F) 96.7 F L 97.7 F L Temperature Source Oral Temporal Pulse Rate (60-100) 63 62 Pulse Location Monitor Monitor Respiratory Rate (12-18) 18 18 Respiratory rate source Observation Observation Oxygen Delivery Method Room Air Room Air Blood Pressure (90/60-120/80) 123/75 H 123/73 H Blood Pressure Mean (mm Hg) 91 89 Source Monitor Monitor Position Semi-Fowlers Semi-Fowlers Blood Pressure Location Right Arm Left Arm History Since Last Visit- (Skip if this is Patient's initial visit) Have you changed medications since your Yes No last visit? Any new allergies or adverse reactions No No Had a fall/change in ADL's that may No No increase risk of falls Signs or symptoms of abuse and/or No No neglect since last visit Have you been in the hospital since your Yes No last visit? Has dressing in place as prescribed Yes Yes Has compression in place as prescribed Yes N/A Has offloadiing in place as prescribed N/A N/A Experienced any changes in pain level or No No management Left Footwear Regular Shoe Regular Shoe Right Footwear Regular Shoe Regular Shoe Pain Scale: 0-10 Numeric Is Patient Pain Free? Yes Yes - Nurse 1 - General Ulcer Measurement Start: 07/11/24 13:17 Freq: Status: Active Protocol: Activity Type Activity Date Activity User E-sign Co-sign Detail Recorded Client Recorded Date Recorded By Document 07/11/24 13:19 KW [id number] 07/11/24 13:25 KW Document 07/25/24 13:14 KW [id number] 07/25/24 13:17 07/11/24 07/25/24 13:19 13:14 Wound Center Nurse 1 #1 R Med LE -Current Size (cm) - Length 0.7 0.1 -Current Size (cm) - Width 0.5 0.1 -Current Size (cm) - Depth 0.1 0 -Total Square Cm 0.35 0.01 -Date of Last Picture (Recall this 07/11/24 07/25/24 field) -Epithelialization Large 67-100% -Exudate Amt Small None Present -Exudate Type Serosanguineous -Wound Margin Distinct, Distinct, Outline Outline Attached Attached -Granulation Amt Large (67-100%) -Granulation Quality Red -Necrosis Amt Small (1-33%) -Necrotic Tissue Type Adherent Slough -Texture (Paige-wound Skin Appearance) Assessed Assessed -Moisture (Paige-wound Skin Appearance) Assessed Assessed -Color (Paige-wound Skin Appearance) Assessed, Assessed Ecchymosis -Temperature (Paige-wound Skin No Abnormality Appearance) (Pt Warm) -Tenderness on Palpation (Paige-wound No Skin Appearance) -Ulcer Cleansing Rinsed/ Irrigated with Saline -Foul Odor after Cleansing No No -Anesthetic Used 5% Lidocaine 5% Lidocaine Gel Gel - Nurse 2 - General Ulcer CM Notes Start: 07/11/24 13:17 Freq: Status: Active Protocol: Activity Type Activity Date Activity User E-sign Co-sign Detail Recorded Client Recorded Date Recorded By Document 07/11/24 13:32 [id number] 07/11/24 13:38 Document 07/25/24 13:19 [id number] 07/25/24 13:21 07/11/24 07/25/24 13:32 13:19 Wound Center Nurse 2 #1 R Med LE -Time 13:36 13:20 -Correct Patient Yes Yes -Correct Side, Site, Position Yes Yes -Correct Procedure Yes -Procedure Performed Yes -Type of Procedure Debridement -Clinical Debridement Subcutaneous -Tissue Removed Subcutaneous -Post Debridement (cm) - Length 0.4 -Post Debridement (cm) - Width 0.4 -Post Debridement (cm) - Depth 0.1 -Total Square (Post) (cm) 0.16 -Area of Debridement (cm) - Length 0.4 -Area of Debridement (cm) - Width 0.4 -Total Square (Area) (cm) 0.16 -Tunneling No -Undermining/Tunneling No -Circular Undermining No -Wound/Ulcer Outcome Not Healed Healed- Epithelialized -Ulcer Cleansing Rinsed/ Irrigated with Saline -Foul Odor after Cleansing No -Bioengineered Tissue No -Bleeding Controlled with Pressure -Treatment Response Procedure Tolerated Well -Debridement - Subq, 1st 20sq cm Yes Pain Scale: 0-10 Numeric Is Patient Pain Free? Yes Yes - Nurse 3 - General Ulcer D/C NN Start: 07/11/24 13:17 Freq: Status: Active Protocol: Activity Type Activity Date Activity User E-sign Co-sign Detail Recorded Client Recorded Date Recorded By Document 07/11/24 13:48 [id number] 07/11/24 13:49 Document 07/25/24 13:23 [id number] 07/25/24 13:24 07/11/24 07/25/24 13:48 13:23 Wound Care Center Nurse 3 #1 R Med LE -Ulcer Cleansing Not Cleansed -Foul Odor after Cleansing No -Primary Dressing Applied Mepilex Border, C Hydrogel ($), Promogran Mepilex Border Gema Matter -Mepilex Border 1 1 -Promogran Gema Matter 1 ble -Other personal compression stockings Pain Scale: 0-10 Numeric Is Patient Pain Free? Yes Yes - Visit Discharge Discharge Condition Stable Ambulatory Status Ambulatory Transportation Private Auto Assessment/Plan Assessment/Plan (1) Ulcer of right lower leg: CODE(S): L97.919 - Non-pressure chronic ulcer of unspecified part of right lower leg with unspecified severity PLAN: Wound started as a laceration to the R lower leg but has evolved into a nonpressure venous ucleration of the right lower leg with subcutaneous layer exposed PLAN: Plan His right calf wound is fully epithelialized today. He is instructed to apply collagen hydrogel and foam border dressing for another 10 days to continue to protect this delicate newly healed skin. He is advised to continue with consistent use of his measured compression stockings, leg elevation, and regular exercise. He is discharged from the wound center today and will return as needed.
--- NOTE | 2024-07-29 13:21 | WC ---
PHOTO 07/25/24 RIGHT WILFREDO LOVE
== END 2024-07-25 16:05 | disposition home or self-care (01) ==
LOC: WC 13:15
PROVIDERS: PCP Family Medicine Geriatric Medicine; Referring Provider Family Medicine Geriatric Medicine; Visit Provider Physician Assistant
DX: L97.212 Non-pressure chronic ulcer of right calf with fat layer exposed (principal); I26.99 Other pulmonary embolism without acute cor pulmonale; I82.401 Acute embolism and thrombosis of unspecified deep veins of right lower extremity; S81.811S Laceration without foreign body, right lower leg, sequela; W26.0XXS Contact with knife, sequela; Z79.01 Long term (current) use of anticoagulants; S01.01XD Laceration without foreign body of scalp, subsequent encounter; W01.10XD Fall on same level from slipping, tripping and stumbling with subsequent striking against unspecified object, subsequent encounter
CPT/HCPCS: 11042; 99213; G0463

== ENCOUNTER → 2024-07-30 | Outpatient (CLI) | payer OTHER, MEDICARE, SELFPAY ==
--- NOTE | 2024-07-30 07:05 | ECHOL_ITS ---
Reason For Study: Re-Evaluate EF Procedure This was a limited 2D transthoracic echocardiogram. Myocardial strain analysis was performed in this exam to aid in the assessment of cardiac function. Exam performed in department. Left Ventricle Normal LV size. The left ventricular ejection fraction is 50 %. There is borderline global hypokinesis of the left ventricle. Right Ventricle Normal RV size. Normal systolic function. Atria Normal left atrium. Normal right atrium. Mitral Valve Stable appearing bioprosthetic mitral valve apparatus. Tricuspid Valve Normal tricuspid valve. Mild (1+) tricuspid valve insufficiency. Pulmonary artery systolic pressure is 28 mmHg. An annuloplasty ring is noted in the tricuspid position. Great Vessels Normal aortic root. Pericardium/Pleural No pericardial effusion. MMode/2D Measurements & Calculations LVIDd: 4.8 cm IVSd: 1.4 cm LA dimension: 4.7 cm LVIDs: 3.5 cm LVPWd: 0.76 cm RVDd: 4.5 cm FS: 26.5 % SV(MOD-sp4): 63.9 ml SV(sp4-el): 69.9 ml LVAd ap4: 38.5 cm2 LVLd ap4: 9.1 cm EDV(MOD-sp4): 132.7 ml EDV(sp4-el): 138.5 ml LVAs ap4: 25.2 cm2 LVLs ap4: 7.8 cm ESV(MOD-sp4): 68.8 ml ESV(sp4-el): 68.6 ml EF(MOD-sp4): 48.2 % EF(sp4-el): 50.5 % Doppler Measurements & Calculations TR max nimo: 247.9 cm/sec TR max P.6 mmHg ECHO/Echo, Limited Study Interpretation Summary Normal LV size. The left ventricular ejection fraction is 50 %. There is borderline global hypokinesis of the left ventricle. An annuloplasty ring is noted in the tricuspid position. The global longitudinal strain is mildly abnormal. The global longitudinal stra in = -15.3% (abnormal). Ordering Physician: Mitchel Shen Referring Physician: Adrián Stearns Performed By: Juan Robertson RCS
--- NOTE | 2024-07-30 07:05 | CT_ITS ---
STUDY: CT ABDOMEN AND PELVIS WITH CONTRAST REASON FOR EXAM: Male, 69 years old. Postoperative hematoma -- PO and IV contrast RADIATION DOSAGE (If Supplied By Facility): CTDIvol = ( 21.45 ) mGy, DLP = ( 1331.62 ) mGycm TECHNIQUE: Oral and amp; IV Readi-CAT and amp; 100mL Isovue-300 was administered. Transaxial images were obtained from the dome of the diaphragm to the symphysis pubis. Multiplanar coronal and sagittal images were reformatted. The protocol utilizes one or more of the following dose reduction techniques: automated exposure control, adjustment of mA and/or kV according to patient size,and/or use of iterative reconstruction technique. COMPARISON: Prior study dated: 06/15/2020 FINDINGS: The visualized lung bases are unremarkable. The visualized portions of the heart are within normal limits. Few small liver cysts unchanged. Normal gallbladder and extrahepatic biliary system. Normal spleen. Normal pancreas. Normal bilateral adrenal glands. Bilateral renal parapelvic cysts unchanged. Thinning of the renal cortices. Mild bilateral hydronephrosis unchanged. Normal visualized stomach. Normal in caliber small bowel loops. Fecal retention. No evidence of acute diverticulitis. There is non-visualization of the appendix. Tortuosity of the abdominal aorta with atherosclerotic calcification distally without evidence of aneurysm. No evidence of adenopathy. Normal urinary bladder. Left inguinal hernia containing fat. There are degenerative changes of the visualized lumbar spine. Right hip arthroplasty. CT/Abdomen/Pelvis WITH Contrast IMPRESSION: 1. No focal acute inflammatory process. 2. No evidence of intra-abdominal hematoma. 3. Bilateral parapelvic cysts and prominent collecting system bilaterally unchanged. 4. Left inguinal hernia containing fat. Electronically Signed: Car Comer MD at 10:06 EDT ,
--- OUTSIDE RECORDS SUMMARY | 2024-07-30 07:06 | XMS RPT_ITS | CCD ---
Author Organization [facility] CliniSyal Care Team Providers Care Health/Safety Job Titles Name Role Phone SRAVANTHI Madrid, Colette Rivera Unavailable [phone] Eden, Nancy-Chi Unavailable Miguel A Dubon Unavailable Vida Russell I Unavailable Vida Russell Unavailable SANTI BEEBE Unavailable Unavailable JANIA KUMAR Unavailable Unavailable EDEN, NANCY-CHI Unavailable Unavailable CONSULT, IMMUNOLOGY/RHEUMATOLOGY Unavailable Unavailable ESEQUIEL COOLEY Unavailable Unavailable TRAVIS PHAM Unavailable Unavailable SELF, SELF Unavailable Unavailable EEDN, NANCY-CHI Unavailable Unavailable JEANINE, KIMBER Unavailable Unavailable EDEN, NANCY-CHI Unavailable Unavailable EDEN, NANCY-CHI Unavailable Unavailable JEANINE, KIMBER Unavailable Unavailable EDEN, NANCY-CHI Unavailable Unavailable EDEN, NANCY-CHI Unavailable Unavailable JEANINE, KIMBER Unavailable Unavailable EDEN, NANCY-CHI Unavailable Unavailable EDEN, NANCY-CHI Unavailable Unavailable TRAVIS PHAM Unavailable Unavailable EDEN, NANCY-CHI Unavailable Unavailable EDEN, NANCY-CHI Unavailable Unavailable TRAVIS PHAM Unavailable Unavailable EDEN, NANCY-CHI Unavailable Unavailable EDEN, NANCY-CHI Unavailable Unavailable TRAVIS PHAM Unavailable Unavailable EDEN, NANCY-CHI Unavailable Unavailable EDEN, NANCY-CHI Unavailable Unavailable TRAVIS PHAM Unavailable Unavailable TRAVIS PHAM Unavailable Unavailable EDEN, NANCY-CHI Unavailable Unavailable Allergies Allergy Classification Reported Allergen(s) Allergy Type Date of Onset Reaction(s) Facility (1 source) pravastatin Drug Allergy 6 muscle cramping [facility] Work Phone: [phone] (3 sources) Hmg-Coa Reductase Inhibitors (Statins) Propensity to adverse reactions to drug 8 [facility] Work Phone: Medications Current Medications Medication Drug Class(es) Dates Sig (Normalized) Sig (Original) acetaminophen 500 mg oral tablet (3 sources) take 2 tablets by mouth every six hours as needed for pain acetaminophen 500 MG Tab tablet Indications: Non-rheumatic mitral regurgitation Take 1,000 mg by mouth every 6 hours as needed for Pain. Active apixaban 5 mg oral tablet (3 sources) Factor Xa Inhibitor take 1 tablet by mouth every twelve hours apixaban (ELIQUIS) 5 MG Tab tablet Take 5 mg by mouth every 12 hours. Active diphenhydrAMINE hydrochloride 50 mg oral capsule (3 sources) Histamine-1 Receptor Antagonist diphenhydrAMINE 50 MG Cap capsule Indications: Non-rheumatic mitral regurgitation Take 50 mg by mouth As directed. Prior to Rituximab infusion Active ergocalciferol 77468 unt oral capsule (3 sources) Provitamin D2 Compound Start: 03-16-2018 take 1 capsule by mouth every week ergocalciferol 49426 units Cap Indications: LAYLA (acute kidney injury) Take 1 capsule by mouth once a week. 12 capsule 0 03/16/2018 Active famotidine 20 mg oral tablet (3 sources) Histamine-2 Receptor Antagonist take 2 tablets by mouth once daily faMOTIdine 20 MG Tab tablet Take 40 mg by mouth daily. Active fluticasone propionate 0.05 mg/actuat metered dose nasal spray (4 sources) Corticosteroid fluticasone 50 MCG/ACT Suspension nasal spray Indications: Non-rheumatic mitral regurgitation 2 sprays by Nasal route daily. Active FLUTICASONE PROP IONATE 50 MCG/ACT SUSP one spray as needed FLUTICASONE PROPIONATE [id number] Zaire Mccall furosemide 40 mg oral tablet (3 sources) Loop Diuretic furOSEmide 40 MG Tab tablet Indications: LAYLA (acute kidney injury) Take 40 mg by mouth as needed. Active methylprednisoLONE 125 mg injection (3 sources) Corticosteroid methylPREDNISolo ne sodium succinate 125 MG Recon Soln Indications: Non-rheumatic mitral regurgitation Inject 125 mg intramuscularly. Inject 2 ml IV prior to Rituximab infusion Active mycophenolate mofetil 500 mg oral tablet (3 sources) Start : 02-05 take 2 tablets by mouth every twelve hours mycophenolate mofetil (generic) 500 MG Tab tablet Take 2 tablets by mouth every 12 hours. 120 tablet 0 02/05/2018 Active microencapsulated potassium chloride 20 meq extended release oral tablet (3 sources) Start : 02-19 potassium chloride 20 MEQ Tab CR tablet Indications: LAYLA (acute kidney injury) Take 20 mEq by mouth as needed. 0 02/19/2018 Active predniSONE 20 mg oral tablet (3 sources) Start : 02-06 take 2 tablets by mouth once daily predniSONE 20 MG Tab tablet Take 2 tablets by mouth daily. 28 tablet 0 02/06/2018 Active riTUXimab (3 sources) [id number] Cytolytic Antibody RITUXIMAB IV Indications: Non-rheumatic mitral regurgitation 1,000 mg by Intravenous route every 14 days. Active sulfamethoxazole 800 mg / trimethoprim 160 mg oral tablet (3 sources) Dihydrofolate Reductase Inhibitor Antibacterial, Sulfonamide Antimicrobial Start : 02-05 take 1 tablet by mouth once sulfamethoxazole-trimet hoprim 800-160 MG Tab per tablet Take 1 tablet by mouth every Monday, Monday and Monday. 12 tablet 0 02/05/2018 Active levothyroxine sodium 0.025 mg oral tablet (4 sources) l-Thyroxine take 1 tablet by mouth once daily before breakfast levothyroxine 25 MCG Tab tablet Take 25 mcg by mouth every morning before breakfast. Active Completed/Discontinued Medications Medication Drug Class(es) Dates Sig (Normalized) Sig (Original) amLODIPine 10 mg oral tablet (1 source) Dihydropyridine Calcium Channel Kita Start: 02-06-2018 End: 08-24-2018 take 1 tablet by mouth once daily amLODIPine 10 MG Tab tablet Take 1 tablet by mouth daily. 30 tablet 0 02/06/2018 08/24/2018 Discontinued aspirin 81 mg delayed release oral tablet (1 source) Nonsteroidal Anti-inflammatory Drug take 1 tablet by mouth once daily ASPIRIN 81 MG TBEC One tablet by mouth daily ASPIRIN [id number] Zaire Mccall atropine sulfate 10 mg/ml ophthalmic solution (2 sources) Anticholinergic, Cholinergic Muscarinic Antagonist Start: 08-27-2017 ATROPINE SULFATE 1 % SOLN as directed ATROPINE SULFATE [id number] Colette Madrid PA-C End: 08-24-2018 take 1 drop(s) into the eye(s) once daily atropine 1 % Solution Place 1 drop in left eye daily. 08/24/2018 Discontinued azithromycin 250 mg oral tablet (1 source) Macrolide Antimicrobial Start: 08-27-2017 ZITHROMAX 250 MG TAB S Take 2 pills day today, then one pill for the next 4 days AZITHROMYCIN [id number] Colette Madrid PA-C Start: 08-27-2017 ZITHROMAX 250 MG TABS Take 2 pills day today, then one pill for the next 4 days AZITHROMYCIN [id number] Colette Madrid PA-C lisinopril 10 mg oral tablet (1 source) Angiotensin Converting Enzyme Inhibitor take 1 tablet by mouth once daily LISINOPRIL 10 MG TABS One tablet by mouth daily LISINOPRIL 13295310879 Zaire Marisol Mccall 24 hr metoprolol succinate 50 mg extended release oral tablet (6 sources) beta-Adrenergic Kita Start: 7 TOPROL XL 50 MG [id number] as directed METOPROLOL SUCCINATE [id number] Colette Madrid PA-C End: 08-27-2017 take 1 tablet by mouth twice daily metoprolol 50 MG tab regular release Take 50 mg by mouth 2 times daily. Active prednisoLONE 10 mg/ml ophthalmic solution (2 sources) Corticosteroid Start: 08-27-2017 PREDNISOLONE S ODIUM PHOSPHATE 1 % SOLN as directed PREDNISOLONE SODIUM PHOSPHATE 32192870254 Colette Madrid PA-C End: 08-24-2018 prednisOLOne acetate 1 % Gilma pension ophthalmic suspension Place in left eye 2 times daily. 08/24/2018 Discontinued Problems Active Problems Problem Classification Problem Date Documented Date Episodic/Chronic Deficiency and other anemia (3 sources) Anemia of chronic disease; Translations: [Anemia of chronic disease] Onset: 01-26-2018 01-26-2018 Chronic Essential hypertension (4 sources) Essential hypertension; Translations: [Essential (primary) hypertension] Onset: 01-19-2018 01-21-2018 Chronic Essential hypertension (1 source) Essential hypertension Onset: 01-21-2018 Heart valve disorders (6 sources) Mitral valve regurgitation; Translations: [Non-rheumatic mitral regurgitation ] Onset: 01-19-2018 01-25-2018 Chronic Immunity disorders (4 sources) Cryoglobulinemia; 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] Onset: 01-19-2018 01-26-2018 Chronic Pulmonary heart disease (1 source) Chronic pulmonary embolism; Translations: [Chronic pulmonary embolism] Onset: 01-19-2018 Chronic Thyroid disorders (3 sources) Hypothyroidism; Translations: [Hypothyroidism] Onset: 01-25-2018 01-25-2018 Chronic Unclassified (1 source) Follow-up / 145() Onset: 08-24-2018 Unclassified (1 source) Nonrheumatic mitral (valve) insufficiency / I34.0(ICD-10) Onset: 01-19-2018 Unclassified (1 source) Acute kidney failure, unspecified / N17.9(ICD-10) Onset: 01-26-2018 Unclassified (1 source) Other nonspecific abnormal finding of lung field / R91.8(ICD-10) Onset: 01-21-2018 Unclassified (1 source) Chronic pulmonary embolism / I27.82(ICD-10) Onset: 01-19-2018 Unclassified (1 source) Rash and other nonspecific skin eruption / R21(ICD-10) Onset: 01-26-2018 Unclassified (1 source) 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) Onset: 01-26-2018 Unclassified (1 source) Other pulmonary embolism without acute cor pulmonale / I26.99(ICD-10) Onset: 01-21-2018 Unclassified (1 source) Hemorrhage, not elsewhere classified / R58(ICD-10) Onset: 01-30-2018 Unclassified (1 source) New Patient / [id number]() Onset: 02-09-2018 Past or Other Problems Problem Classification Problem Date Documented Da te Episodic/Chronic Abdominal hernia (2 sources) Umbilical hernia; Translations: [Umbilical hernia without obstruction or gangrene] Onset: 05-16-2016 Resolved: 06-02-2016 06-02-2016 Episodic Acute and unspecified renal failure (4 sources) Acute kidney failure, unspecified; Translations: [LAYLA (acute kidney injury)] Onset: 01-19-2018 01-26-2018 Episodic Fever of unknown origin (4 sources) Fever; Translations: [Fever, unspecified] Onset: 08-27-2017 08-27-2017 Episodic Other circulatory disease (3 sources) Hemorrhage, not elsewhere classified; Translations: [Retroperitoneal bleed] Onset: 01-30-2018 01-30-2018 Episodic Other lower respiratory disease (3 sources) Abnormal findings on diagnostic imaging of lung; Translations: [Ground glass opacity present on imaging of lung] Onset: 01-21-2018 01-21-2018 Episodic Other lower respiratory disease (1 source) Other nonspecific abnormal finding of lung field; Translations: [Other nonspecific abnormal finding of lung field] Onset: 01-19-2018 Episodic Other skin disorders (3 sources) Eruption; Translations: [Rash and nonspecific skin eruption] Onset: 01-21-2018 01-21-2018 Episodic Other skin disorders (1 source) Rash and other nonspecific skin eruption; Translations: [Rash and other nonspecific skin eruption] Onset: 01-19-2018 Episodic Pulmonary heart disease (4 sources) Pulmonary embolism; Translations: [Other pulmonary embolism without acute cor pulmonale] Onset: 01-19-2018 01-21-2018 Episodic Unclassified (1 source) New Patient; Translations: [New Patient] Onset: 02-09-2018 Unclassified (1 source) Hemorrhage, not elsewhere classified; Translations: [Hemorrhage, not elsewhere classified] Onset: 01-19-2018 Results Test Name Value Interpretation Reference Range Facility B-Type Natriuretic Peptideon 08-24-2018 Natriuretic peptide B mass conc (Bld) 590 pg/mL High 0-100 [facility] Comment on above: Performed By: #### C BCDFC, CHM7, HFP, IPB, MGO, PTPTT ####[facility] [place] [address] [place], [place] [id number] [place] [address] Cryoglobulin/Cryofibrinogeno n 03-19-2018 *Cryofibrinogen Negative Normal Negative [facility] Comment on above: Result Comment: Test performed by [facility] Dpt of Lab Med & Pathology Performed By: #### C BCDFC, CHM7, HFP, IPB, MGO, PTPTT ####[facility] [place], [place] [address]NxijnmKettering Health [facility] [place] [address] CRYOGLOBULIN Negative Normal Negative [facility] Comment on above: Result Comment: (NOT E)This test is negative at 24 hours. All samples are held andreviewed again at 7 days. If delayed precipitation occursafter 7 days, Immunofixation will be performed and anadditional report will follow. Performed By: #### C BCDFC, CHM7, HFP, IPB, MGO, PTPTT ####[facility] [place], [place] [id number] [place] [address] 25-OH Vitamin D Totalon 25-OH Vitamin D Total 15.6 ng/mL Low 30.0-100.0 Wii [facility] Comment on above: Result Comment: <10 [id number] Optimal Level>100 Possible Toxicity Performed By: #### C BCDFC, CHM7, HFP, IPB, MGO, PTPTT ####[facility] [place], [place] [id number] [address] [place] [address] Albuminon 03-14-2018 Albumin mass conc 3.8 g/dL Normal 3.5-5.0 [facility] Comment on above: Performed By: #### C BCDFC, CHM7, HFP, IPB, MGO, PTPTT ####[facility] [place], [place] [id number] [address] [place] [address] Albumin - UHEon 03-14-2018 Albumin mass conc 3.7 g/dL Normal 3.5-5.0 [facility] Comment on above: Performed By: #### C BCDFC, CHM7, HFP, IPB, MGO, PTPTT ####[facility] [place], [place] [id number] [address] [place] [address] C Reactive Proteinon 018 CRP mass conc 47.50 mg/L High <10.00 [facility] Comment on above: Performed By: #### C BCDFC, CHM7, HFP, IPB, MGO, PTPTT ####[facility] [place], [place] [id number] [place] [address] C3 and C4 Batteryon 03-14-20 18 C3 124 mg/dL Normal 87-200 [facility] Comment on above: Performed By: #### C BCDFC, CHM7, HFP, IPB, MGO, PTPTT ####[facility] [place], [place] [id number] [address] [place] [address] C4 23 mg/dL Normal 18-52 [facility] Comment on above: Performed By: #### C BCDFC, CHM7, HFP, IPB, MGO, PTPTT ####[facility] [place], [place] [id number] [place] [address] CBC WITH DIFF Alma 018 Abs Baso <0.04 Normal <0.09 [facility] Comment on above: Performed By: #### C BCDFC, CHM7, HFP, IPB, MGO, PTPTT ####[facility] [place], [place] [id number] [place] [address] Abs Eos <0.04 Normal <0.55 [facility] Comment on above: Performed By: #### C BCDFC, CHM7, HFP, IPB, MGO, PTPTT ####[facility] [place], [place] [id number] [place] [address] Abs Burleson 0.19 K/uL Low 0.30-0.82 [facility] Comment on above: Performed By: #### C BCDFC, CHM7, HFP, IPB, MGO, PTPTT ####[facility] [place], [place] [id number] [address] [place] [address] Basophils/100 WBC Auto (Bld) 0.1 % Normal [facility] Comment on above: Performed By: #### C BCDFC, CHM7, HFP, IPB, MGO, PTPTT ####[facility] [place] [address]VsavagKettering Health Dayton[address] [place] [address]11 DIFFERENTIAL TYPE Electronic Differential Normal [facility] Comment on above: Performed By: #### C BCDFC, CHM7, HFP, IPB, MGO, PTPTT ####[facility] [place] [address], [place] [address] [place], [place] [id number] [address] [place] [address] Eosinophils/100 WBC Auto (Bld) 0.0 % Normal [facility] Comment on above: Performed By: #### C BCDFC, CHM7, HFP, IPB, MGO, PTPTT ####[facility] [place] [address], [address] [place] [address]76 Hematocrit Auto Volume Fraction (Bld) 31.5 % Low 40.1-51.0 [facility] Comment on above: Performed By: #### C BCDFC, CHM7, HFP, IPB, MGO, PTPTT ####[facility] [place], [place] [id number] [place] [address]31 Hemoglobin mass conc (Bld) 10.3 g/dL Low 13.7-17.5 [facility] Comment on above: Performed By: #### C BCDFC, CHM7, HFP, IPB, MGO, PTPTT ####[facility] [place] [address]KkrhamKettering Health Dayton[address] [place] [address]69 IMMATURE GRANS % 0.7 % Normal [facility] Comment on above: Performed By: #### C BCDFC, CHM7, HFP, IPB, MGO, PTPTT ####[facility] [place] [address], [place] [address]EnmnhpKettering Health Dayton[address] [place] [address]9632 IMMATURE GRANS ABSOLUTE 0.08 K/uL High <0.04 O [facility] Comment on above: Performed By: #### C BCDFC, CHM7, HFP, IPB, MGO, PTPTT ####[facility] [place] [address], [place] [address]VwdgiaKettering Health Dayton[address] [place] [address] 04671 Lymphocytes Auto #/vol (Bld) 0.20 10*3/uL Low 1.32-3.57 [facility] Comment on above: Performed By: #### C BCDFC, CHM7, HFP, IPB, MGO, PTPTT ####[facility] [place] [address], [place] [address] [place], [place] [id number] [address] [place] [address] 29545 Lymphocytes/100 WBC Auto (Bld) 1.7 % Normal [facility] Comment on above: Performed By: #### C BCDFC, CHM7, HFP, IPB, MGO, PTPTT ####[facility] [place] [address], [place] [address] [place], [place] [id number] [address] [place] [address] 70456 MCV Auto Entitic volume (RBC) 92.6 fL High 79.0-92.2 [facility] Comment on above: Performed By: #### C BCDFC, CHM7, HFP, IPB, MGO, PTPTT ####[facility] [place] [address]MjeepmKettering Health Dayton[address] [place] [address] 98157 Mean Cell Hgb 30.3 pg Normal 25.7-32.2 [facility] Comment on above: Performed By: #### C BCDFC, CHM7, HFP, IPB, MGO, PTPTT ####[facility] [place] [address], [place] [address]QxmxokKettering Health Dayton[address] [place] [address] 37690 Mean Cell Hgb Conc 32.7 g/dL Normal 32.3-36.5 [facility] Comment on above: Performed By: #### C BCDFC, CHM7, HFP, IPB, MGO, PTPTT ####[facility] [place] [address], [place] [address]FwpnigKettering Health Dayton[address] [place] [address] 07046 Monocytes/100 WBC Auto (Bld) 1.7 % Normal [facility] Comment on above: Performed By: #### C BCDFC, CHM7, HFP, IPB, MGO, PTPTT ####[facility] [place] [address], [place] [address]RvobdxKettering Health Dayton[address] [place] [address] 01752 NEUTROPHIL SEGMENTED 95.8 % Normal [facility] Comment on above: Performed By: #### C BCDFC, CHM7, HFP, IPB, MGO, PTPTT ####[facility] [place] [address], [place] [address]DcptjmKettering Health Dayton[address] [place] [address] 38118 Nucleated RBC #/vol (Bld) 0.0 /100 WBC Normal 0.0-0.2 [facility] Comment on above: Performed By: #### C BCDFC, CHM7, HFP, IPB, MGO, PTPTT ####[facility] [place] [address], [place] [address]SgnoriKettering Health Dayton[address] [place] [address] 41136 Platelet mean volume Auto Entitic volume (Bld) 8.7 fL Low 9.4-12.4 [facility] Comment on above: Performed By: #### C BCDFC, CHM7, HFP, IPB, MGO, PTPTT ####[facility] [place] [address], [place] [address]ZiatddKettering Health Dayton[address] [place] [address] 11928 Platelets Auto #/vol (Bld) 137 10*3/uL Low 163-337 [facility] Comment on above: Performed By: #### C BCDFC, CHM7, HFP, IPB, MGO, PTPTT ####[facility] [place] [address], [address] [place] [address] 27210 RBC Auto #/vol (Bld) 3.40 10*6/uL Low 4.63-6.08 [facility] Comment on above: Performed By: #### C BCDFC, CHM7, HFP, IPB, MGO, PTPTT ####[facility] [place] [address], [address] [place] [address] RBC Auto #/vol (Bld) 15.9 % High 11.6-14.4 [facility] Comment on above: Performed By: #### C BCDFC, CHM7, HFP, IPB, MGO, PTPTT ####[facility] [place], [place] [id number] [place] [address] 65741 SEGS + Bands,Absolute 10.97 K/uL High 1.78-5.38 [facility] Comment on above: Performed By: #### C BCDFC, CHM7, HFP, IPB, MGO, PTPTT ####[facility] [place] [address]ZrdyqjKettering Health Dayton[address] [place] [address] 97512 WBC Auto #/vol (Bld) 11.45 10*3/uL High 4.23-9.07 [facility] Comment on above: Performed By: #### C BCDFC, CHM7, HFP, IPB, MGO, PTPTT ####[facility] [place] [address], [address] [place] [address] CBC,PLATELET,DIFFERENTIAL - CCLon 03-14-2018 Abs Baso <0.04 Normal <0.09 [facility] Comment on above: Performed By: #### C BCDFC, CHM7, HFP, IPB, MGO, PTPTT ####[facility] [place] [address], [address] [place] [address] Abs Eos <0.04 Normal <0.55 [facility] Comment on above: Performed By: #### C BCDFC, CHM7, HFP, IPB, MGO, PTPTT ####[facility] [place] [address], [address] [place] [address] 43001 Abs Burleson 0.21 K/uL Low 0.30-0.82 [facility] Comment on above: Performed By: #### C BCDFC, CHM7, HFP, IPB, MGO, PTPTT ####[facility] [place], [place] [id number] [address] [place] [address] Basophils/100 WBC Auto (Bld) 0.1 % Normal [facility] Comment on above: Performed By: #### C BCDFC, CHM7, HFP, IPB, MGO, PTPTT ####[facility] [place] [address], [address] [place] [address] DIFFERENTIAL TYPE Electronic Differential Normal [facility] Comment on above: Performed By: #### C BCDFC, CHM7, HFP, IPB, MGO, PTPTT ####[facility]Av[facility] Hospital[facility] Ekxsil[address] [place] [address], [place] [address]MrhepxKettering Health Dayton[address] [place] [address] 45105 Eosinophils/100 WBC Auto (Bld) 0.0 % Normal [facility] Comment on above: Performed By: #### C BCDFC, CHM7, HFP, IPB, MGO, PTPTT ####[facility] [place], [place] [id number] [address] [place] [address] Hematocrit Auto Volume Fraction (Bld) 31.4 % Low 40.1-51.0 [facility] Comment on above: Performed By: #### C BCDFC, CHM7, HFP, IPB, MGO, PTPTT ####[facility] [place], [place] [id number] [address] [place] [address] Hemoglobin mass conc (Bld) 10.4 g/dL Low 13.7-17.5 [facility] Comment on above: Performed By: #### C BCDFC, CHM7, HFP, IPB, MGO, PTPTT ####[facility] [place], [place] [id number] [place] [address] IMMATURE GRANS % 0.9 % Normal [facility] Comment on above: Performed By: #### C BCDFC, CHM7, HFP, IPB, MGO, PTPTT ####[facility] [place], [place] [id number] [place] [address] IMMATURE GRANS ABSOLUTE 0.10 K/uL High <0.04 O [facility] Comment on above: Performed By: #### C BCDFC, CHM7, HFP, IPB, MGO, PTPTT ####[facility] [place], [place] [id number] [place] [address] 30544 Lymphocytes Auto #/vol (Bld) 0.24 10*3/uL Low 1.32-3.57 [facility] Comment on above: Performed By: #### C BCDFC, CHM7, HFP, IPB, MGO, PTPTT ####[facility] [place], [place] [id number] [place] [address] Lymphocytes/100 WBC Auto (Bld) 2.1 % Normal [facility] Comment on above: Performed By: #### C BCDFC, CHM7, HFP, IPB, MGO, PTPTT ####[facility] [place], [place] [id number] [place] [address] MCV Auto Entitic volume (RBC) 92.1 fL Normal 79.0-92.2 [facility] Comment on above: Performed By: #### C BCDFC, CHM7, HFP, IPB, MGO, PTPTT ####[facility] [place], [place] [id number] [address] [place] [address] Mean Cell Hgb 30.5 pg Normal 25.7-32.2 [facility] Comment on above: Performed By: #### C BCDFC, CHM7, HFP, IPB, MGO, PTPTT ####[facility] [place], [place] [id number] [place] [address] Mean Cell Hgb Conc 33.1 g/dL Normal 32.3-36.5 [facility] Comment on above: Performed By: #### C BCDFC, CHM7, HFP, IPB, MGO, PTPTT ####[facility] [place], [place] [address]10[facility] [place] [address] 10630 Monocytes/100 WBC Auto (Bld) 1.8 % Normal [facility] Comment on above: Performed By: #### C BCDFC, CHM7, HFP, IPB, MGO, PTPTT ####[facility] [place], [place] [id number] [place] [address] 7[address]70 NEUTROPHIL SEGMENTED 95.1 % Normal [facility] Comment on above: Performed By: #### C BCDFC, CHM7, HFP, IPB, MGO, PTPTT ####[facility] [place], [place] [id number] [place] [address] 81601 Nucleated RBC #/vol (Bld) 0.0 /100 WBC Normal 0.0-0.2 [facility] Comment on above: Performed By: #### C BCDFC, CHM7, HFP, IPB, MGO, PTPTT ####[facility] [place], [place] [id number] [address] [place] [address] Platelet mean volume Auto Entitic volume (Bld) 8.7 fL Low 9.4-12.4 [facility] Comment on above: Performed By: #### C BCDFC, CHM7, HFP, IPB, MGO, PTPTT ####[facility] [place], [place] [id number] [address] [place] [address] Platelets Auto #/vol (Bld) 127 10*3/uL Low 163-337 [facility] Comment on above: Performed By: #### C BCDFC, CHM7, HFP, IPB, MGO, PTPTT ####[facility] [place] [address] 96119 RBC Auto #/vol (Bld) 3.41 10*6/uL Low 4.63-6.08 [facility] Comment on above: Performed By: #### C BCDFC, CHM7, HFP, IPB, MGO, PTPTT ####[facility] [place], [place] [id number] [address] [place] [address] RBC Auto #/vol (Bld) 16.2 % High 11.6-14.4 [facility] Comment on above: Performed By: #### C BCDFC, CHM7, HFP, IPB, MGO, PTPTT ####[facility] [place], [place] [id number] [address] [place] [address] SEGS + Bands,Absolute 10.91 K/uL High 1.78-5.38 [facility] Comment on above: Performed By: #### C BCDFC, CHM7, HFP, IPB, MGO, PTPTT ####[facility] [place], [place] [id number] [address] [place] [address]130 WBC Auto #/vol (Bld) 11.47 10*3/uL High 4.23-9.07 [facility] Comment on above: Performed By: #### C BCDFC, CHM7, HFP, IPB, MGO, PTPTT ####[facility] [place], [place] [id number] [address] [place] [address] Chem 6 - UHEon 03-14-2018 Anion gap 3 molar conc 12 mmol/L Normal 7-17 [facility] Comment on above: Performed By: #### C BCDFC, CHM7, HFP, IPB, MGO, PTPTT ####[facility] [place] [id number] [place], [place] [id number] [place] [address] 01684 Chloride molar conc 108 mmol/L Normal 98-108 [facility] Comment on above: Performed By: #### C BCDFC, CHM7, HFP, IPB, MGO, PTPTT ####[facility] [place], [place] [id number] [place] [address] 46012 CO2 molar conc 23 mmol/L Normal 22-30 [facility] Comment on above: Performed By: #### C BCDFC, CHM7, HFP, IPB, MGO, PTPTT ####[facility] [place], [place] [id number] [place] [address] 65499 Creatinine mass conc 1.18 mg/dL Normal 0.70-1.30 [facility] Comment on above: Performed By: #### C BCDFC, CHM7, HFP, IPB, MGO, PTPTT ####[facility] [place], [place] [id number] [place] [address] 59473 Est GFR, >60 Normal >60 [facility] Comment on above: Performed By: #### C BCDFC, CHM7, HFP, IPB, MGO, PTPTT ####[facility] [place], [place] [id number] [place] [address] 41490 Est GFR,non >60 Normal >60 [facility] Comment on above: Performed By: #### C BCDFC, CHM7, HFP, IPB, MGO, PTPTT ####[facility] [place], [place] [id number] [place] [address] 67077 Potassium molar conc 3.7 mmol/L Normal 3.5-5.0 [facility] Comment on above: Performed By: #### C BCDFC, CHM7, HFP, IPB, MGO, PTPTT ####[facility] [place] [id number] [place], [place] [id number] [place] [address] 24825 Sodium molar conc 139 mmol/L Normal 133-143 [facility] Comment on above: Performed By: #### C BCDFC, CHM7, HFP, IPB, MGO, PTPTT ####[facility] [place], [place] [id number] [place] [address] 98529 Urea nitrogen mass conc 24 mg/dL High 7-22 [facility] Comment on above: Performed By: #### C BCDFC, CHM7, HFP, IPB, MGO, PTPTT ####[facility] [place], [place] [id number] [place] [address] 33119 Urea nitrogen/Creatinine mass ratio 20 mg/mg Normal [facility] Comment on above: Performed By: #### C BCDFC, CHM7, HFP, IPB, MGO, PTPTT ####[facility] [place], [place] [id number] [place] [address]379 Creatinine, 24HR URINEon *CREATININE, UR, 24HR 1.41 g/24 hrs Normal 0.8-2.0 [facility] Comment on above: Performed By: #### C BCDFC, CHM7, HFP, IPB, MGO, PTPTT ####[facility] [place], [place] [id number] [place] [address] 17095 Creatinine, urine mg/dL 75.00 mg/dL Normal [facility] Comment on above: Performed By: #### C BCDFC, CHM7, HFP, IPB, MGO, PTPTT ####[facility] [facility], [place] [address]KeuuvpKettering Health Dayton[address] [place], [place] [address] Creatinine, urine, random - [facility] 03-14-2018 Creatinine, urine mg/dL 43.00 mg/dL Normal [facility] Comment on above: Result Comment: The reference range has not been established for random urine specimens. The test result should be integrated into the clinical context for interpretation. Performed By: #### C BCDFC, CHM7, HFP, IPB, MGO, PTPTT ####[facility] [facility], [place] [address]ErdifjKettering Health Dayton[address] [place] [address] D-Dimer, High Sensitivity - [facility] 03-14-2018 D-Dimer, High Sensitivity 0.50 mcg/mL FEU High <0.50 [facility] Comment on above: Result Comment: The D-Dimer assay is intended for use in conjuction with a clinical pretest probability (PTP) assessment model to exclude pulmonary embolism (PE) and as an aid in the diagnosis of Deep Vein Thrombosis (DVT) in outpatients suspected of PE or DVT.For the assay in use at [facility] ([facility]), a cutoff of <0.50 mcg/mL has a Negative Predictive Value of 99.7% for exclusion of DVT in low and moderate PTP patients. Performed By: #### C BCDFC, CHM7, HFP, IPB, MGO, PTPTT ####[facility] [place], [place] [address]KgrnoxKettering Health Dayton[address] [place] [address] ESR Westergren - [facility] 03-14 ESR Westergren 18 mm/hr Normal <20 [facility] Comment on above: Performed By: #### C BCDFC, CHM7, HFP, IPB, MGO, PTPTT ####[facility] [place], [place] [id number] [address] [place] [address] Ferritinon 03-14-2018 Ferritin [Mass/volume] in Serum or Plasma 1585 ng/mL High 22-322 [facility] Comment on above: Performed By: #### C BCDFC, CHM7, HFP, IPB, MGO, PTPTT ####[facility] [place], [place] [id number] [place] [address] IRON*TIBC (TRANSFERRIN)on *Iron*Saturation 13 % Low 20-55 [facility] Comment on above: Performed By: #### C BCDFC, CHM7, HFP, IPB, MGO, PTPTT ####[facility] [place] [address], [address] [place] [address] Iron mass conc 40 ug/dL Normal 40-174 [facility] Comment on above: Performed By: #### C BCDFC, CHM7, HFP, IPB, MGO, PTPTT ####[facility] [place], [place] [id number] [address] [place] [address] Total Iron Binding Capacity 297 mcg/dL Low 298-596 [facility] Comment on above: Performed By: #### C BCDFC, CHM7, HFP, IPB, MGO, PTPTT ####[facility] [place] [address], [address] [place] [address] Transferrin mass conc 199 mg/dL Low 200-400 [facility] Comment on above: Performed By: #### C BCDFC, CHM7, HFP, IPB, MGO, PTPTT ####[facility] [place] [address], [place] [address] [place], [place] [id number] [place] [address] 87014 IgGon 03-14-2018 IgG mass conc 911 mg/dL Normal 600-1560 [facility] Comment on above: Performed By: #### C BCDFC, CHM7, HFP, IPB, MGO, PTPTT ####[facility] [place] [address], [address] [place] [address] 17212 Protein, 24HR URINEon 2017 Protein, urine 24 hr 357 mg/24 hrs High 40-225 O [facility] Comment on above: Performed By: #### C BCDFC, CHM7, HFP, IPB, MGO, PTPTT ####[facility] [place] [address], [address] [place] [address]130 PROTEIN, urine mg/dL 19 mg/dL Normal [facility] Comment on above: Performed By: #### C BCDFC, CHM7, HFP, IPB, MGO, PTPTT ####[facility] [place], [place] [id number] [place] [address] 49458 Protein, urine, random - UHE on 03-14-2018 PROTEIN, urine mg/dL 27 mg/dL Normal [facility] Comment on above: Result Comment: The reference range has not been established for random urine specimens. The test result should be integrated into the clinical context for interpretation. Performed By: #### C BCDFC, CHM7, HFP, IPB, MGO, PTPTT ####[facility] [place], [place] [id number] [place] [address] 48386 Rheumatoid Factor (RF)on 06- 06-2018 Rheumatoid Factor (RF) 13 IU/mL Normal 0-14 [facility] Comment on above: Performed By: #### C BCDFC, CHM7, HFP, IPB, MGO, PTPTT ####[facility] [place] [address] [place], [place] [id number] [place] [address] 21051 Sodium, 24HR URINEon 018 URINE SODIUM 186 mmol/24 hrs Normal 40-220 [facility] Comment on above: Performed By: #### C BCDFC, CHM7, HFP, IPB, MGO, PTPTT ####[facility] [place], [place] [id number] [address] [place] [address] 50777 URINE SODIUM 99 mmol/L Normal [facility] Comment on above: Performed By: #### C BCDFC, CHM7, HFP, IPB, MGO, PTPTT ####[facility] [place], [place] [id number] [place] [address] 52790 Uric Acid - UHEon 03-14-2018 Urate mass conc 6.5 mg/dL Normal 3.5-7.0 [facility] Comment on above: Performed By: #### C BCDFC, CHM7, HFP, IPB, MGO, PTPTT ####[facility] [place], [place] [id number] [place] [address] 03389 Volume Measuredon 03-14-2018 Interval 24 hrs Normal [facility] Comment on above: Performed By: #### C BCDFC, CHM7, HFP, IPB, MGO, PTPTT ####[facility] [place], [place] [id number] [address] [place] [address] 65543 Volume 1877 mL Normal 0-6000 [facility] Comment on above: Performed By: #### C BCDFC, CHM7, HFP, IPB, MGO, PTPTT ####[facility] [place] [address], [place] [address]UhkyrpKettering Health Dayton[address] [place] [address] 25772 Phosphatidyethanolamine Ab P sobia 02-06-2018 IgA Phosphatidylethanol Ab 1.6 U/mL Normal <12.0 [facility] Comment on above: Performed By: #### C BCDFC, CHM7, HFP, IPB, MGO, PTPTT ####[facility] [facility], [place] [address]KwsvsbKettering Health Dayton[address] [place] [address] 81915 IgG Phosphatidylethanol Ab 1.9 U/mL Normal <12.0 [facility] Comment on above: Performed By: #### C BCDFC, CHM7, HFP, IPB, MGO, PTPTT ####[facility] [facility], [place] [address]KmdcraKettering Health Dayton[address] [place] [address] 75109 IgM Phosphatidylethanol Ab 1.3 U/mL Normal <12.0 [facility] Comment on above: Result Comment: (NOT E) ADDITIONAL INFORMATION Reference Range applies to Antiphosphatidylethanolamine IgA,IgG, and IgM. Normal <12.0 Equivocal 12.0 - 18.0 Elevated >18.0The performance characteristics of the listed assays werevalidated by [employer]. The [place] FDA hasnot approved or cleared this test. The results of theseassays can be used for clinical diagnosis without FDAapproval. [employer]. is a CLIA certified,CAP accredited laboratory for performing high complexityassays.Test Performed by:[employer].[address] [place] [address] Performed By: #### C BCDFC, CHM7, HFP, IPB, MGO, PTPTT ####[facility] [place] [id number] [place], [place] [id number] [address] [place] [address] Phosphatidylcholine Ab Panel on 02-06-2018 Cholesterol mass conc 3.5 U/mL Normal <12.0 [facility] Comment on above: Result Comment: (NOT E) ADDITIONAL INFORMATION Reference Range applies to Antiphosphatidylcholine IgA,IgG, and IgM. Normal <12.0 Equivocal 12.0 - 18.0 Elevated >18.0The performance characteristics of the listed assays werevalidated by [employer]. The [place] FDA hasnot approved or cleared this test. The results of theseassays can be used for clinical diagnosis without FDAapproval. [employer]. is a CLIA certified,CAP accredited laboratory for performing high complexityassays.Test Performed by:[employer].[address] [place] [address] Performed By: #### C BCDFC, CHM7, HFP, IPB, MGO, PTPTT ####[facility] [place], [place] [address] [address] [place] [address] Cholesterol mass conc 2.7 U/mL Normal <12.0 [facility] Comment on above: Performed By: #### C BCDFC, CHM7, HFP, IPB, MGO, PTPTT ####[facility] [place] [id number] [place], [place] [id number] [address] [place] [address] CHEM 7on 02-05-2018 Anion gap 3 molar conc 9 mmol/L Normal 7-17 [facility] Comment on above: Performed By: #### C BCDFC, CHM7, HFP, IPB, MGO, PTPTT ####[facility] [place] [address], [address] [place], [place] [address] Chloride molar conc 107 mmol/L Normal 98-108 [facility] Comment on above: Performed By: #### C BCDFC, CHM7, HFP, IPB, MGO, PTPTT ####[facility] [place], [place] [id number] [place] [address] 27620 CO2 molar conc 23 mmol/L Normal 22-30 [facility] Comment on above: Performed By: #### C BCDFC, CHM7, HFP, IPB, MGO, PTPTT ####[facility] [place], [place] [id number] [place] [address] 01987 Creatinine mass conc 1.43 mg/dL High 0.70-1.30 [facility] Comment on above: Performed By: #### C BCDFC, CHM7, HFP, IPB, MGO, PTPTT ####[facility] [place], [place] [id number] [place] [address] 62742 Est GFR, >60 Normal >60 [facility] Comment on above: Performed By: #### C BCDFC, CHM7, HFP, IPB, MGO, PTPTT ####[facility] [place], [place] [id number] [place] [address] 81993 Est GFR,non 50 mL/min/1.73sqM Low >60 [facility] Comment on above: Performed By: #### C BCDFC, CHM7, HFP, IPB, MGO, PTPTT ####[facility] [place] [address] 30040 Glucose mass conc 114 mg/dL High 70-99 [facility] Comment on above: Performed By: #### C BCDFC, CHM7, HFP, IPB, MGO, PTPTT ####[facility] [place] [id number] [place], [place] [id number] [place] [address] 09985 Osmolality 291 mOsm/kg Normal 278-305 [facility] Comment on above: Performed By: #### C BCDFC, CHM7, HFP, IPB, MGO, PTPTT ####[facility] [place] [address], [address] [place] [address] Potassium molar conc 4.3 mmol/L Normal 3.5-5.0 [facility] Comment on above: Performed By: #### C BCDFC, CHM7, HFP, IPB, MGO, PTPTT ####[facility] [place] [address], [address] [place] [address] 85609 Sodium molar conc 135 mmol/L Normal 133-143 [facility] Comment on above: Performed By: #### C BCDFC, CHM7, HFP, IPB, MGO, PTPTT ####[facility] [place], [place] [id number] [address] [place] [address] Urea nitrogen mass conc 29 mg/dL High 7-22 O [facility] Comment on above: Performed By: #### C BCDFC, CHM7, HFP, IPB, MGO, PTPTT ####[facility] [place], [place] [id number] [address] [place] [address] Urea nitrogen/Creatinine mass ratio 20 mg/mg Normal [facility] Comment on above: Performed By: #### C BCDFC, CHM7, HFP, IPB, MGO, PTPTT ####[facility] [place], [place] [address]WmentsKettering Health Dayton[address] [place], [place] [address] CT ABDOMEN/PELVIS WITHOUT CO NTRASTon 02-05-2018 CT ABDOMEN/PELVIS WITHOUT CONTRAST EXAM: CT ABDOMEN/PELVIS WITHOUT CONTRAST, 02/05/2018 15:44 PMCOMPARISON: CT abdomen pelvis January 29, 2018.CLINICAL INDICATIONS: follow up on retroperitoneal bleeding; TECHNIQUE: Helical axial images of the abdomen and pelvis were performed fromthe domes of the diaphragm to the ischial tuberosities without theadministration of intravenous contrast. Oral contrast was administered.Coronal 2 mm reconstructions were also made.CONTRAST:This patient underwent a CT examination using radiation exposure as low asreasonably achievable. CTDIvol and DLP radiation exposure values for eachseries were:Exposure: 1; Series: 2; Anatomy: Abdomen; Phantom: 32 cm; CTDIvol: 11; DLP: 581The dose indicators for CT are the volume Computed Tomography (CT) Dose Index(CTDIvol) and the Dose Length Product (DLP), and are measured in units of mGyand mGy-cm, respectively. These indicators are not patient dose, but valuesgenerated from the CT scanner acquisition factors and may substantiallyunderestim ate or overestimate the absorbed dose based on patient size andother factors.FINDINGS: Lack of IV contrast limits evaluation of lymph nodes and small lesions.Lung bases: Scattered pulmonary micronodules, for example a left lower lobe 5 mm nodule(series 2 image 7), essentially unchanged from the prior exam.Liver:The liver is smooth in contour and homogeneous in attenuation. Multiple toosmall to characterize hepatic hypodensities, grossly unchanged in theinterval. Indeterminate left anterior hepatic lobe subcapsular hypodensity(series 2 image 37) measures 2.4 x 1.7 cm, essentially unchanged.Biliary/Gallb ladder: The gallbladder is physiologically distended without evidence of radiopaquestones. The biliary tree is nondilated.Spleen:Gross ly unremarkable. Incidentally noted splenule.Pancreas: There is no gross evidence of pancreatic mass or peripancreatic fluid. Noductal dilatation.Adrenals: Grossly unremarkable.Kidneys: There is a left perinephric hematoma which is decreased in size in theinterval. A airline security representative maximal transverse dimension measurement of 4.8 cm(series 2 image 74), previously 7.7 cm. Multiple bilateral parapelvic cysts,essentially unchanged in the interval. The ureters are nondilated. Fewpunctate calcifications in the lauryn bilaterally are favored to representvascular calcifications. Gastrointestinal: Lack of oral contrast limits evaluation of the GI tract. Small hiatal hernia.The stomach is partially distended with contents of ingestion and appearsgrossly unremarkable. The small bowel loops are nondistended. Mild colonicfecal retention.Lymph nodes: No bulky adenopathy.Vasculature: Few scattered atherosclerotic calcifications throughout the aorta and itsbranches. Abdominal aorta is tortuous, but nonaneurysmal.Peritoneu m/retroperitoneumMixed attenuation left retroperitoneal hematoma as described above.Bladder: Grossly unremarkable.Pelvic structures: The prostate and seminal vesicles are grossly unremarkable.Soft tissues: Nodularity along the left flank, similar in appearance to the prior exam.This is likely related to recent intervention.Bony Structures: No acute bony abnormality.IMPRESSION: 1. Large left perinephric /retroperitoneal hematoma, decreased in size inthe interval. 2. Bilateral parapelvic cysts. No hydroureteronephrosis. 3. Additional stable ancillary findings as above. Normal [facility] HEMOGRAM (CBC and Platelet)o n 02-05-2018 Hematocrit Auto Volume Fraction (Bld) 26.5 % Low 40.1-51.0 [facility] Comment on above: Performed By: #### C BCDFC, CHM7, HFP, IPB, MGO, PTPTT ####[facility] [place], [place] [id number] [place] [address] Hemoglobin mass conc (Bld) 8.5 g/dL Low 13.7-17.5 [facility] Comment on above: Performed By: #### C BCDFC, CHM7, HFP, IPB, MGO, PTPTT ####[facility] [place], [place] [address] [address] [place] [address] MCV Auto Entitic volume (RBC) 93.6 fL High 79.0-92.2 [facility] Comment on above: Performed By: #### C BCDFC, CHM7, HFP, IPB, MGO, PTPTT ####[facility] [place], [place] [id number] [place] [address] Mean Cell Hgb 30.0 pg Normal 25.7-32.2 [facility] Comment on above: Performed By: #### C BCDFC, CHM7, HFP, IPB, MGO, PTPTT ####[facility] [place], [place] [id number] [place] [address] Mean Cell Hgb Conc 32.1 g/dL Low 32.3-36.5 [facility] Comment on above: Performed By: #### C BCDFC, CHM7, HFP, IPB, MGO, PTPTT ####[facility] [place], [place] [id number] [place] [address] Nucleated RBC #/vol (Bld) 0.0 /100 WBC Normal 0.0-0.2 [facility] Comment on above: Performed By: #### C BCDFC, CHM7, HFP, IPB, MGO, PTPTT ####[facility] [place], [place] [id number] [place] [address] Platelet mean volume Auto Entitic volume (Bld) 9.8 fL Normal 9.4-12.4 [facility] Comment on above: Performed By: #### C BCDFC, CHM7, HFP, IPB, MGO, PTPTT ####[facility] [place], [place] [address] [place] [address] 86195 Platelets Auto #/vol (Bld) 74 10*3/uL Low 163-337 [facility] Comment on above: Performed By: #### C BCDFC, CHM7, HFP, IPB, MGO, PTPTT ####[facility] [place], [place] [id number] [place] [address] RBC Auto #/vol (Bld) 18.9 % High 11.6-14.4 [facility] Comment on above: Performed By: #### C BCDFC, CHM7, HFP, IPB, MGO, PTPTT ####[facility] [place], [place] [id number] [place] [address] RBC Auto #/vol (Bld) 2.83 10*6/uL Low 4.63-6.08 [facility] Comment on above: Performed By: #### C BCDFC, CHM7, HFP, IPB, MGO, PTPTT ####[facility] [place], [place] [id number] [place] [address] WBC Auto #/vol (Bld) 6.39 10*3/uL Normal 4.23-9.07 [facility] Comment on above: Performed By: #### C BCDFC, CHM7, HFP, IPB, MGO, PTPTT ####[facility] [place], [place] [id number] [place] [address] HGB & HCTon 02-05-2018 Hematocrit Auto Volume Fraction (Bld) 27.0 % Low 40.1-51.0 [facility] Comment on above: Performed By: #### C BCDFC, CHM7, HFP, IPB, MGO, PTPTT ####[facility] [place] [address], [address] [place] [address] Hemoglobin mass conc (Bld) 8.8 g/dL Low 13.7-17.5 [facility] Comment on above: Performed By: #### C BCDFC, CHM7, HFP, IPB, MGO, PTPTT ####[facility] [place], [place] [id number] [place] [address] Platelet Count [place] Platelet mean volume Auto Entitic volume (Bld) 9.4 fL Normal 9.4-12.4 [facility] Comment on above: Performed By: #### C BCDFC, CHM7, HFP, IPB, MGO, PTPTT ####[facility] [place] [address], [address] [place] [address] Platelets Auto #/vol (Bld) 69 10*3/uL Low 163-337 [facility] Comment on above: Performed By: #### C BCDFC, CHM7, HFP, IPB, MGO, PTPTT ####[facility] [place], [place] [id number] [place] [address] CHEM 7on 02-04-2018 Anion gap 3 molar conc 10 mmol/L Normal 7-17 [facility] Comment on above: Performed By: #### C BCDFC, CHM7, HFP, IPB, MGO, PTPTT ####[facility] [place], [place] [id number] [place] [address] Chloride molar conc 106 mmol/L Normal 98-108 [facility] Comment on above: Performed By: #### C BCDFC, CHM7, HFP, IPB, MGO, PTPTT ####[facility] [place], [place] [id number] [place] [address]356 CO2 molar conc 22 mmol/L Normal 22-30 [facility] Comment on above: Performed By: #### C BCDFC, CHM7, HFP, IPB, MGO, PTPTT ####[facility] [place], [place] [id number] [address] [place] [address] Creatinine mass conc 1.50 mg/dL High 0.70-1.30 [facility] Comment on above: Performed By: #### C BCDFC, CHM7, HFP, IPB, MGO, PTPTT ####[facility] [place], [place] [id number] [address] [place] [address] 39127 Est GFR, 57 mL/min/1.73sqM Low >60 [facility] Comment on above: Performed By: #### C BCDFC, CHM7, HFP, IPB, MGO, PTPTT ####[facility] [place], [place] [id number] [address] [place] [address] 80663 Est GFR,non 47 mL/min/1.73sqM Low >60 [facility] Comment on above: Performed By: #### C BCDFC, CHM7, HFP, IPB, MGO, PTPTT ####[facility] [place], [place] [id number] [address] [place] [address] Glucose mass conc 136 mg/dL High 70-99 [facility] Comment on above: Performed By: #### C BCDFC, CHM7, HFP, IPB, MGO, PTPTT ####[facility] [place] [id number] [place], [place] [id number] [place] [address] 41927 Osmolality 292 mOsm/kg Normal 278-305 [facility] Comment on above: Performed By: #### C BCDFC, CHM7, HFP, IPB, MGO, PTPTT ####[facility] [place], [place] [id number] [address] [place] [address] 94638 Potassium molar conc 4.3 mmol/L Normal 3.5-5.0 [facility] Comment on above: Performed By: #### C BCDFC, CHM7, HFP, IPB, MGO, PTPTT ####[facility] [place] [id number] [place], [place] [id number] [address] [place] [address] 21542 Sodium molar conc 134 mmol/L Normal 133-143 [facility] Comment on above: Performed By: #### C BCDFC, CHM7, HFP, IPB, MGO, PTPTT ####[facility] [place], [place] [id number] [address] [place] [address] Urea nitrogen mass conc 34 mg/dL High 7-22 O [facility] Comment on above: Performed By: #### C BCDFC, CHM7, HFP, IPB, MGO, PTPTT ####[facility] [place] [id number] [place], [place] [id number] [place] [address] 10769 Urea nitrogen/Creatinine mass ratio 23 mg/mg Normal [facility] Comment on above: Performed By: #### C BCDFC, CHM7, HFP, IPB, MGO, PTPTT ####[facility] [place], [place] [id number] [address] [place] [address] 35028 HEMOGRAM (CBC and Platelet)o n 02-04-2018 Hematocrit Auto Volume Fraction (Bld) 25.9 % Low 40.1-51.0 [facility] Comment on above: Performed By: #### C BCDFC, CHM7, HFP, IPB, MGO, PTPTT ####[facility] [place] [address], [address] [place] [address] Hemoglobin mass conc (Bld) 8.5 g/dL Low 13.7-17.5 [facility] Comment on above: Performed By: #### C BCDFC, CHM7, HFP, IPB, MGO, PTPTT ####[facility] [place], [place] [id number] [address] [place] [address] MCV Auto Entitic volume (RBC) 93.5 fL High 79.0-92.2 [facility] Comment on above: Performed By: #### C BCDFC, CHM7, HFP, IPB, MGO, PTPTT ####[facility] [place] [address], [address] [place] [address] Mean Cell Hgb 30.7 pg Normal 25.7-32.2 [facility] Comment on above: Performed By: #### C BCDFC, CHM7, HFP, IPB, MGO, PTPTT ####[facility] [place], [place] [id number] [address] [place] [address] Mean Cell Hgb Conc 32.8 g/dL Normal 32.3-36.5 [facility] Comment on above: Performed By: #### C BCDFC, CHM7, HFP, IPB, MGO, PTPTT ####[facility] [place] [address] [id number] [place] [address] 98410 Nucleated RBC #/vol (Bld) 0.0 /100 WBC Normal 0.0-0.2 [facility] Comment on above: Performed By: #### C BCDFC, CHM7, HFP, IPB, MGO, PTPTT ####[facility] [facility], [address] [place] [address] Platelet mean volume Auto Entitic volume (Bld) 10.1 fL Normal 9.4-12.4 [facility] Comment on above: Performed By: #### C BCDFC, CHM7, HFP, IPB, MGO, PTPTT ####[facility] [place] [address] Platelets Auto #/vol (Bld) 69 10*3/uL Low 163-337 [facility] Comment on above: Performed By: #### C BCDFC, CHM7, HFP, IPB, MGO, PTPTT ####[facility] [place] [address], [address] [place] [address] RBC Auto #/vol (Bld) 2.77 10*6/uL Low 4.63-6.08 [facility] Comment on above: Performed By: #### C BCDFC, CHM7, HFP, IPB, MGO, PTPTT ####[facility] [place], [place] [id number] [address] [place] [address] RBC Auto #/vol (Bld) 19.4 % High 11.6-14.4 [facility] Comment on above: Performed By: #### C BCDFC, CHM7, HFP, IPB, MGO, PTPTT ####[facility] [place] [address], [address] [place] [address] WBC Auto #/vol (Bld) 7.53 10*3/uL Normal 4.23-9.07 [facility] Comment on above: Performed By: #### C BCDFC, CHM7, HFP, IPB, MGO, PTPTT ####[facility] [place], [place] [id number] [address] [place] [address] HGB & HCTon 02-04-2018 Hematocrit Auto Volume Fraction (Bld) 28.5 % Low 40.1-51.0 [facility] Comment on above: Performed By: #### C BCDFC, CHM7, HFP, IPB, MGO, PTPTT ####[facility] [place] [address], [address] [place] [address] Hemoglobin mass conc (Bld) 9.3 g/dL Low 13.7-17.5 [facility] Comment on above: Performed By: #### C BCDFC, CHM7, HFP, IPB, MGO, PTPTT ####[facility] [place], [place] [id number] [address] [place] [address] PTTon 02-04-2018 aPTT Coag time (Bld) 73.6 s Critically high 24.0-34.3 [facility] Comment on above: Performed By: #### C BCDFC, CHM7, HFP, IPB, MGO, PTPTT ####[facility] [place] [address], [address] [place] [address] aPTT Coag time (Bld) 83.1 s Critically high 24.0-34.3 [facility] Comment on above: Performed By: #### C BCDFC, CHM7, HFP, IPB, MGO, PTPTT ####[facility] [place] [address], [address] [place] [address] aPTT Coag time (Bld) 106.7 s Critically high 24.0-34.3 [facility] Comment on above: Performed By: #### C BCDFC, CHM7, HFP, IPB, MGO, PTPTT ####[facility] [place] [address], [address] [place] [address] aPTT Coag time (Bld) 108.1 s Critically high 24.0-34.3 [facility] Comment on above: Performed By: #### C BCDFC, CHM7, HFP, IPB, MGO, PTPTT ####[facility] [place], [place] [id number] [address] [place] [address] Platelet Count [place] Platelet mean volume Auto Entitic volume (Bld) 9.9 fL Normal 9.4-12.4 [facility] Comment on above: Performed By: #### C BCDFC, CHM7, HFP, IPB, MGO, PTPTT ####[facility] [place] [address], [address] [place] [address] Platelets Auto #/vol (Bld) 69 10*3/uL Low 163-337 [facility] Comment on above: Performed By: #### C BCDFC, CHM7, HFP, IPB, MGO, PTPTT ####[facility] [place], [place] [id number] [address] [place] [address] CHEM 7on 02-03-2018 Anion gap 3 molar conc 14 mmol/L Normal 7-17 [facility] Comment on above: Performed By: #### C BCDFC, CHM7, HFP, IPB, MGO, PTPTT ####[facility] [place] [address] 17212EkqhboKettering Health Dayton[address] [place], [place] [address] Chloride molar conc 106 mmol/L Normal 98-108 [facility] Comment on above: Performed By: #### C BCDFC, CHM7, HFP, IPB, MGO, PTPTT ####[facility] [place], [place] [id number] [address] [place] [address] 37582 CO2 molar conc 20 mmol/L Low 22-30 [facility] Comment on above: Performed By: #### C BCDFC, CHM7, HFP, IPB, MGO, PTPTT ####[facility] [place] [id number] [place], [place] [id number] [place] [address] 77979 Creatinine mass conc 1.49 mg/dL High 0.70-1.30 [facility] Comment on above: Performed By: #### C BCDFC, CHM7, HFP, IPB, MGO, PTPTT ####[facility] [place] [id number] [place], [place] [id number] [address] [place] [address] 52534 Est GFR, 57 mL/min/1.73sqM Low >60 [facility] Comment on above: Performed By: #### C BCDFC, CHM7, HFP, IPB, MGO, PTPTT ####[facility] [place] [address]97QmvgpoKettering Health Dayton[address] [place] [address] 86278 Est GFR,non 47 mL/min/1.73sqM Low >60 [facility] Comment on above: Performed By: #### C BCDFC, CHM7, HFP, IPB, MGO, PTPTT ####[facility] [place], [place] [id number] [address] [place] [address] Glucose mass conc 127 mg/dL High 70-99 [facility] Comment on above: Performed By: #### C BCDFC, CHM7, HFP, IPB, MGO, PTPTT ####[facility] [place], [place] [id number] [address] [place] [address] Osmolality 297 mOsm/kg Normal 278-305 [facility] Comment on above: Performed By: #### C BCDFC, CHM7, HFP, IPB, MGO, PTPTT ####[facility] [place], [place] [id number] [address] [place] [address] Potassium molar conc 4.2 mmol/L Normal 3.5-5.0 [facility] Comment on above: Performed By: #### C BCDFC, CHM7, HFP, IPB, MGO, PTPTT ####[facility] [place], [place] [id number] [address] [place] [address] Sodium molar conc 136 mmol/L Normal 133-143 [facility] Comment on above: Performed By: #### C BCDFC, CHM7, HFP, IPB, MGO, PTPTT ####[facility] [place], [place] [id number] [address] [place] [address] Urea nitrogen mass conc 39 mg/dL High 7-22 O [facility] Comment on above: Performed By: #### C BCDFC, CHM7, HFP, IPB, MGO, PTPTT ####[facility] Dtbdpa[address] [place] [address], [place] [address]MiruheKettering Health Dayton[address] [place] [address] Urea nitrogen/Creatinine mass ratio 26 mg/mg Normal [facility] Comment on above: Performed By: #### C BCDFC, CHM7, HFP, IPB, MGO, PTPTT ####[facility] [place] [address], [address] [place] [address] HEMOGRAM (CBC and Platelet)o n 02-03-2018 Hematocrit Auto Volume Fraction (Bld) 25.0 % Low 40.1-51.0 [facility] Comment on above: Performed By: #### C BCDFC, CHM7, HFP, IPB, MGO, PTPTT ####[facility] [place] [address], [address] [place] [address] Hemoglobin mass conc (Bld) 8.2 g/dL Low 13.7-17.5 [facility] Comment on above: Performed By: #### C BCDFC, CHM7, HFP, IPB, MGO, PTPTT ####[facility] [place] [address], [address] [place] [address] MCV Auto Entitic volume (RBC) 93.3 fL High 79.0-92.2 [facility] Comment on above: Performed By: #### C BCDFC, CHM7, HFP, IPB, MGO, PTPTT ####[facility] [place], [place] [address]10[facility] [place] [address] Mean Cell Hgb 30.6 pg Normal 25.7-32.2 [facility] Comment on above: Performed By: #### C BCDFC, CHM7, HFP, IPB, MGO, PTPTT ####[facility] [place] [address], [address] [place] [address] Mean Cell Hgb Conc 32.8 g/dL Normal 32.3-36.5 [facility] Comment on above: Performed By: #### C BCDFC, CHM7, HFP, IPB, MGO, PTPTT ####[facility] [place] [address], [address] [place] [address] Nucleated RBC #/vol (Bld) 0.0 /100 WBC Normal 0.0-0.2 [facility] Comment on above: Performed By: #### C BCDFC, CHM7, HFP, IPB, MGO, PTPTT ####[facility] [place] [address], [address] [place] [address] Platelet mean volume Auto Entitic volume (Bld) 10.3 fL Normal 9.4-12.4 [facility] Comment on above: Performed By: #### C BCDFC, CHM7, HFP, IPB, MGO, PTPTT ####[facility] [place] [address], [address] [place] [address] Platelets Auto #/vol (Bld) 63 10*3/uL Low 163-337 [facility] Comment on above: Performed By: #### C BCDFC, CHM7, HFP, IPB, MGO, PTPTT ####[facility] [place] [address], [address] [place] [address] RBC Auto #/vol (Bld) 2.68 10*6/uL Low 4.63-6.08 [facility] Comment on above: Performed By: #### C BCDFC, CHM7, HFP, IPB, MGO, PTPTT ####[facility] [place] [address], [place] [address]K[address] [place], [place] [id number] [address] [place] [address] RBC Auto #/vol (Bld) 19.9 % High 11.6-14.4 [facility] Comment on above: Performed By: #### C BCDFC, CHM7, HFP, IPB, MGO, PTPTT ####[facility] [place] [address], [address] [place] [address] WBC Auto #/vol (Bld) 7.64 10*3/uL Normal 4.23-9.07 [facility] Comment on above: Performed By: #### C BCDFC, CHM7, HFP, IPB, MGO, PTPTT ####[facility] [place] [address], [address] [place] [address] HGB & HCTon 02-03-2018 Hematocrit Auto Volume Fraction (Bld) 25.7 % Low 40.1-51.0 [facility] Comment on above: Performed By: #### C BCDFC, CHM7, HFP, IPB, MGO, PTPTT ####[facility] [place] [address], [address] [place] [address] Hemoglobin mass conc (Bld) 8.3 g/dL Low 13.7-17.5 [facility] Comment on above: Performed By: #### C BCDFC, CHM7, HFP, IPB, MGO, PTPTT ####[facility] [place] [address], [address] [place] [address] Hematocrit Auto Volume Fraction (Bld) 29.5 % Low 40.1-51.0 [facility] Comment on above: Performed By: #### C BCDFC, CHM7, HFP, IPB, MGO, PTPTT ####[facility] [place] [id number] [place], [place] [address] [place] [address]22 Hemoglobin mass conc (Bld) 9.1 g/dL Low 13.7-17.5 [facility] Comment on above: Performed By: #### C BCDFC, CHM7, HFP, IPB, MGO, PTPTT ####[facility] [place], [place] [id number] [address] [place] [address] PTTon 02-03-2018 aPTT Coag time (Bld) 106.5 s Critically high 24.0-34.3 [facility] Comment on above: Performed By: #### C BCDFC, CHM7, HFP, IPB, MGO, PTPTT ####[facility] [place] [id number] [place], [place] [address] [place] [address] 11911 aPTT Coag time (Bld) 99.1 s Critically high 24.0-34.3 [facility] Comment on above: Performed By: #### C BCDFC, CHM7, HFP, IPB, MGO, PTPTT ####[facility] [place] [id number] [place], [place] [id number] [place] [address] 14899 aPTT Coag time (Bld) 91.3 s Critically high 24.0-34.3 [facility] Comment on above: Performed By: #### C BCDFC, CHM7, HFP, IPB, MGO, PTPTT ####[facility] [place] [address]FvhpjoKettering Health Dayton[address] [place] [address] 21878 aPTT Coag time (Bld) 81.1 s Critically high 24.0-34.3 [facility] Comment on above: Performed By: #### C BCDFC, CHM7, HFP, IPB, MGO, PTPTT ####[facility] [facility], [place] [address]JzqaceKettering Health Dayton[address] [place] [address] aPTT Coag time (Bld) 64.6 s Critically high 24.0-34.3 [facility] Comment on above: Performed By: #### C BCDFC, CHM7, HFP, IPB, MGO, PTPTT ####[facility] [place] [address], [place] [address]SzjjqrKettering Health Dayton[address] [place] [address] aPTT Coag time (Bld) 143.2 s Critically high 24.0-34.3 [facility] Comment on above: Performed By: #### C BCDFC, CHM7, HFP, IPB, MGO, PTPTT ####[facility] [place] [address], [address] [place] [address] Antiplatelet Antibodies (ser um)on 02-02-2018 Anti-platelet Ab, IgA Positive Normal NEGATIVE [facility] Comment on above: Result Comment: (NOT E)Circulating antibodies to platelets, detected byFlow Cytometry, are found in the sera of patientswith immune mediated disorders. Plateletantibodies have been associated with ITP anddrug-induced thrombocytopenia.This test was developed and its analyticalperformance characteristics have been determinedby [facility]. It has not been cleared or approved byCH[facility]. This assay has been validated pursuant to theIA regulations and is used for clinicalpurposes.Test performed by [employer] [facility] [address] [place] [address] Loxxmso Director: Esequiel Shepherd MD,PHD,MBATest Reported by [facility],[address] [place], [place] [address]Xebdcmtantonia Judge M.D., Ph.D., Director of [phone], REBECCA [id number] sent to [facility] Performed By: #### C BCDFC, CHM7, HFP, IPB, MGO, PTPTT ####[facility] [place] [id number] [place], [place] [id number] [place] [address]34 Anti-platelet Ab, IgG Positive Normal NEGATIVE [facility] Comment on above: Performed By: #### C BCDFC, CHM7, HFP, IPB, MGO, PTPTT ####[facility] [place], [place] [id number] [address] [place] [address] Anti-platelet AB, IgM Positive Normal NEGATIVE [facility] Comment on above: Performed By: #### C BCDFC, CHM7, HFP, IPB, MGO, PTPTT ####[facility] [place] [id number] [place], [place] [id number] [place] [address] 73569 CHEM 7on 02-02-2018 Anion gap 3 molar conc 12 mmol/L Normal 7-17 [facility] Comment on above: Performed By: #### C BCDFC, CHM7, HFP, IPB, MGO, PTPTT ####[facility] [place], [place] [id number] [place] [address] 39675 Chloride molar conc 108 mmol/L Normal 98-108 [facility] Comment on above: Performed By: #### C BCDFC, CHM7, HFP, IPB, MGO, PTPTT ####[facility] [place], [place] [id number] [place] [address] 11010 CO2 molar conc 22 mmol/L Normal 22-30 [facility] Comment on above: Performed By: #### C BCDFC, CHM7, HFP, IPB, MGO, PTPTT ####[facility] [place], [place] [id number] [place] [address] Creatinine mass conc 1.60 mg/dL High 0.70-1.30 [facility] Comment on above: Performed By: #### C BCDFC, CHM7, HFP, IPB, MGO, PTPTT ####[facility] [place], [place] [address] [place] [address] 78652 Est GFR, 53 mL/min/1.73sqM Low >60 [facility] Comment on above: Performed By: #### C BCDFC, CHM7, HFP, IPB, MGO, PTPTT ####[facility] [place], [place] [id number] [place] [address] Est GFR,non 44 mL/min/1.73sqM Low >60 [facility] Comment on above: Performed By: #### C BCDFC, CHM7, HFP, IPB, MGO, PTPTT ####[facility] [place], [place] [id number] [place] [address] Glucose mass conc 104 mg/dL High 70-99 [facility] Comment on above: Performed By: #### C BCDFC, CHM7, HFP, IPB, MGO, PTPTT ####[facility] [place], [place] [id number] [place] [address] Osmolality 299 mOsm/kg Normal 278-305 [facility] Comment on above: Performed By: #### C BCDFC, CHM7, HFP, IPB, MGO, PTPTT ####[facility] [place], [place] [id number] [place] [address] Potassium molar conc 4.6 mmol/L Normal 3.5-5.0 [facility] Comment on above: Performed By: #### C BCDFC, CHM7, HFP, IPB, MGO, PTPTT ####[facility] [place], [place] [id number] [place] [address] Sodium molar conc 137 mmol/L Normal 133-143 [facility] Comment on above: Performed By: #### C BCDFC, CHM7, HFP, IPB, MGO, PTPTT ####[facility] [place], [place] [id number] [place] [address] Urea nitrogen mass conc 41 mg/dL High 7-22 O [facility] Comment on above: Performed By: #### C BCDFC, CHM7, HFP, IPB, MGO, PTPTT ####[facility] [place], [place] [id number] [place] [address] Urea nitrogen/Creatinine mass ratio 26 mg/mg Normal [facility] Comment on above: Performed By: #### C BCDFC, CHM7, HFP, IPB, MGO, PTPTT ####[facility] [place], [place] [id number] [place] [address]46 HEMOGRAM (CBC and Platelet)o n 02-02-2018 Hematocrit Auto Volume Fraction (Bld) 27.3 % Low 40.1-51.0 [facility] Comment on above: Performed By: #### C BCDFC, CHM7, HFP, IPB, MGO, PTPTT ####[facility] [place] [id number] [place], [place] [id number] [place] [address] 96839 Hemoglobin mass conc (Bld) 9.0 g/dL Low 13.7-17.5 [facility] Comment on above: Performed By: #### C BCDFC, CHM7, HFP, IPB, MGO, PTPTT ####[facility] [place], [place] [id number] [place] [address] MCV Auto Entitic volume (RBC) 93.8 fL High 79.0-92.2 [facility] Comment on above: Performed By: #### C BCDFC, CHM7, HFP, IPB, MGO, PTPTT ####[facility] [place], [place] [id number] [place] [address] Mean Cell Hgb 30.9 pg Normal 25.7-32.2 [facility] Comment on above: Performed By: #### C BCDFC, CHM7, HFP, IPB, MGO, PTPTT ####[facility] [place], [place] [id number] [place] [address] Mean Cell Hgb Conc 33.0 g/dL Normal 32.3-36.5 [facility] Comment on above: Performed By: #### C BCDFC, CHM7, HFP, IPB, MGO, PTPTT ####[facility] [place], [place] [id number] [address] [address] Nucleated RBC #/vol (Bld) 0.0 /100 WBC Normal 0.0-0.2 [facility] Comment on above: Performed By: #### C BCDFC, CHM7, HFP, IPB, MGO, PTPTT ####[facility] [facility], [address] [place] [address]187 Platelet mean volume Auto Entitic volume (Bld) 9.6 fL Normal 9.4-12.4 [facility] Comment on above: Performed By: #### C BCDFC, CHM7, HFP, IPB, MGO, PTPTT ####[facility] [place], [place] [id number] [place] [address]317 Platelets Auto #/vol (Bld) 71 10*3/uL Low 163-337 [facility] Comment on above: Performed By: #### C BCDFC, CHM7, HFP, IPB, MGO, PTPTT ####[facility] [place], [place] [id number] [place] [address] RBC Auto #/vol (Bld) 20.2 % High 11.6-14.4 [facility] Comment on above: Performed By: #### C BCDFC, CHM7, HFP, IPB, MGO, PTPTT ####[facility] [place], [place] [id number] [place] [address] 89204 RBC Auto #/vol (Bld) 2.91 10*6/uL Low 4.63-6.08 [facility] Comment on above: Performed By: #### C BCDFC, CHM7, HFP, IPB, MGO, PTPTT ####[facility] [place] [address], [address] [place] [address] WBC Auto #/vol (Bld) 9.39 10*3/uL High 4.23-9.07 [facility] Comment on above: Performed By: #### C BCDFC, CHM7, HFP, IPB, MGO, PTPTT ####[facility] [place] [address], [address] [place] [address] HGB & HCTon 02-02-2018 Hematocrit Auto Volume Fraction (Bld) 26.5 % Low 40.1-51.0 [facility] Comment on above: Performed By: #### C BCDFC, CHM7, HFP, IPB, MGO, PTPTT ####[facility] [place] [address], [address] [place] [address] Hemoglobin mass conc (Bld) 8.7 g/dL Low 13.7-17.5 [facility] Comment on above: Performed By: #### C BCDFC, CHM7, HFP, IPB, MGO, PTPTT ####[facility] [place] [address], [address] [place] [address] PTTon 02-02-2018 aPTT Coag time (Bld) 69.5 s Critically high 24.0-34.3 [facility] Comment on above: Result Comment: Resu lts inconsistent with the patient's previous results Performed By: #### C BCDFC, CHM7, HFP, IPB, MGO, PTPTT ####[facility] [place] [address], [address] [place] [address] aPTT Coag time (Bld) 26.8 s Normal 24.0-34.3 [facility] Comment on above: Performed By: #### C BCDFC, CHM7, HFP, IPB, MGO, PTPTT ####[facility] [place] [id number] [place], [place] [id number] [place] [address] CHEM 7on 02-01-2018 Anion gap 3 molar conc 13 mmol/L Normal 7-17 [facility] Comment on above: Performed By: #### C BCDFC, CHM7, HFP, IPB, MGO, PTPTT ####[facility] [place], [place] [id number] [place] [address] Chloride molar conc 109 mmol/L High 98-108 [facility] Comment on above: Performed By: #### C BCDFC, CHM7, HFP, IPB, MGO, PTPTT ####[facility] [place], [place] [id number] [place] [address] CO2 molar conc 22 mmol/L Normal 22-30 [facility] Comment on above: Performed By: #### C BCDFC, CHM7, HFP, IPB, MGO, PTPTT ####[facility] [place], [place] [id number] [place] [address]265 Creatinine mass conc 1.53 mg/dL High 0.70-1.30 [facility] Comment on above: Performed By: #### C BCDFC, CHM7, HFP, IPB, MGO, PTPTT ####[facility] [place], [place] [id number] [place] [address] Est GFR, 56 mL/min/1.73sqM Low >60 [facility] Comment on above: Performed By: #### C BCDFC, CHM7, HFP, IPB, MGO, PTPTT ####[facility] [place], [place] [id number] [place] [address]807 Est GFR,non 46 mL/min/1.73sqM Low >60 [facility] Comment on above: Performed By: #### C BCDFC, CHM7, HFP, IPB, MGO, PTPTT ####[facility] [place], [place] [id number] [place] [address] Glucose mass conc 104 mg/dL High 70-99 [facility] Comment on above: Performed By: #### C BCDFC, CHM7, HFP, IPB, MGO, PTPTT ####[facility] [place], [place] [id number] [place] [address] Osmolality 302 mOsm/kg Normal 278-305 [facility] Comment on above: Performed By: #### C BCDFC, CHM7, HFP, IPB, MGO, PTPTT ####[facility] [place], [place] [id number] [place] [address] Potassium molar conc 4.6 mmol/L Normal 3.5-5.0 [facility] Comment on above: Performed By: #### C BCDFC, CHM7, HFP, IPB, MGO, PTPTT ####[facility] [place], [place] [id number] [place] [address] Sodium molar conc 139 mmol/L Normal 133-143 [facility] Comment on above: Performed By: #### C BCDFC, CHM7, HFP, IPB, MGO, PTPTT ####[facility] [place] [address] Urea nitrogen mass conc 40 mg/dL High 7-22 [facility] Comment on above: Performed By: #### C BCDFC, CHM7, HFP, IPB, MGO, PTPTT ####[facility] [place] [address], [address] [place] [address] Urea nitrogen/Creatinine mass ratio 26 mg/mg Normal [facility] Comment on above: Performed By: #### C BCDFC, CHM7, HFP, IPB, MGO, PTPTT ####[facility] [place], [place] [id number] [place] [address] HEMOGRAM (CBC and Platelet)o n 02-01-2018 Hematocrit Auto Volume Fraction (Bld) 26.3 % Low 40.1-51.0 [facility] Comment on above: Performed By: #### C BCDFC, CHM7, HFP, IPB, MGO, PTPTT ####[facility] [place], [place] [id number] [place] [address] Hemoglobin mass conc (Bld) 8.5 g/dL Low 13.7-17.5 [facility] Comment on above: Performed By: #### C BCDFC, CHM7, HFP, IPB, MGO, PTPTT ####[facility] [place], [place] [id number] [place] [address] MCV Auto Entitic volume (RBC) 93.9 fL High 79.0-92.2 [facility] Comment on above: Performed By: #### C BCDFC, CHM7, HFP, IPB, MGO, PTPTT ####[facility] [place], [place] [id number] [place] [address] Mean Cell Hgb 30.4 pg Normal 25.7-32.2 [facility] Comment on above: Performed By: #### C BCDFC, CHM7, HFP, IPB, MGO, PTPTT ####[facility] [place], [place] [id number] [place] [address] Mean Cell Hgb Conc 32.3 g/dL Normal 32.3-36.5 [facility] Comment on above: Performed By: #### C BCDFC, CHM7, HFP, IPB, MGO, PTPTT ####[facility] [place], [place] [id number] [place] [address] Nucleated RBC #/vol (Bld) 0.0 /100 WBC Normal 0.0-0.2 [facility] Comment on above: Performed By: #### C BCDFC, CHM7, HFP, IPB, MGO, PTPTT ####[facility] [place], [place] [id number] [place] [address] Platelet mean volume Auto Entitic volume (Bld) 9.4 fL Normal 9.4-12.4 [facility] Comment on above: Performed By: #### C BCDFC, CHM7, HFP, IPB, MGO, PTPTT ####[facility] [place], [place] [id number] [place] [address] Platelets Auto #/vol (Bld) 62 10*3/uL Low 163-337 [facility] Comment on above: Performed By: #### C BCDFC, CHM7, HFP, IPB, MGO, PTPTT ####[facility] [place] [address], [address] [place] [address] RBC Auto #/vol (Bld) 2.80 10*6/uL Low 4.63-6.08 [facility] Comment on above: Performed By: #### C BCDFC, CHM7, HFP, IPB, MGO, PTPTT ####[facility] [place] [address], [address] [place] [address] RBC Auto #/vol (Bld) 20.2 % High 11.6-14.4 [facility] Comment on above: Performed By: #### C BCDFC, CHM7, HFP, IPB, MGO, PTPTT ####[facility] [place], [place] [id number] [place] [address] WBC Auto #/vol (Bld) 10.40 10*3/uL High 4.23-9.07 [facility] Comment on above: Performed By: #### C BCDFC, CHM7, HFP, IPB, MGO, PTPTT ####[facility] [place], [place] [address] [place] [address] HGB & HCTon 02-01-2018 Hematocrit Auto Volume Fraction (Bld) 25.1 % Low 40.1-51.0 [facility] Comment on above: Performed By: #### C BCDFC, CHM7, HFP, IPB, MGO, PTPTT ####[facility] [place], [place] [address] [place] [address] Hemoglobin mass conc (Bld) 8.4 g/dL Low 13.7-17.5 [facility] Comment on above: Performed By: #### C BCDFC, CHM7, HFP, IPB, MGO, PTPTT ####[facility] [place] [id number] [place], [place] [id number] [place] [address] CHEM 7on 01-31-2018 Anion gap 3 molar conc 11 mmol/L Normal 7-17 [facility] Comment on above: Performed By: #### C BCDFC, CHM7, HFP, IPB, MGO, PTPTT ####[facility] [place], [place] [id number] [place] [address] Chloride molar conc 112 mmol/L High 98-108 [facility] Comment on above: Performed By: #### C BCDFC, CHM7, HFP, IPB, MGO, PTPTT ####[facility] [place], [place] [id number] [place] [address]38 CO2 molar conc 21 mmol/L Low 22-30 [facility] Comment on above: Performed By: #### C BCDFC, CHM7, HFP, IPB, MGO, PTPTT ####[facility] [place], [place] [id number] [place] [address] Creatinine mass conc 1.53 mg/dL High 0.70-1.30 [facility] Comment on above: Performed By: #### C BCDFC, CHM7, HFP, IPB, MGO, PTPTT ####[facility] [place], [place] [id number] [place] [address] Est GFR, 56 mL/min/1.73sqM Low >60 [facility] Comment on above: Performed By: #### C BCDFC, CHM7, HFP, IPB, MGO, PTPTT ####[facility] [place] [id number] [place], [place] [address] [place] [address] 32792 Est GFR,non 46 mL/min/1.73sqM Low >60 [facility] Comment on above: Performed By: #### C BCDFC, CHM7, HFP, IPB, MGO, PTPTT ####[facility] [place] [address] [place], [place] [address] [place] [address]77 Glucose mass conc 101 mg/dL High 70-99 [facility] Comment on above: Performed By: #### C BCDFC, CHM7, HFP, IPB, MGO, PTPTT ####[facility] [place], [place] [address] [place] [address]93 Osmolality 304 mOsm/kg Normal 278-305 [facility] Comment on above: Performed By: #### C BCDFC, CHM7, HFP, IPB, MGO, PTPTT ####[facility] [place] [address] [place], [place] [address] [place] [address] 36982 Potassium molar conc 4.1 mmol/L Normal 3.5-5.0 [facility] Comment on above: Performed By: #### C BCDFC, CHM7, HFP, IPB, MGO, PTPTT ####[facility] [place], [place] [address] [place] [address] Sodium molar conc 140 mmol/L Normal 133-143 [facility] Comment on above: Performed By: #### C BCDFC, CHM7, HFP, IPB, MGO, PTPTT ####[facility] [place] [id number] [place], [place] [id number] [address] [place], [place] [address] Urea nitrogen mass conc 43 mg/dL High 7-22 [facility] Comment on above: Performed By: #### C BCDFC, CHM7, HFP, IPB, MGO, PTPTT ####[facility] [place] [address] [place] [address] Urea nitrogen/Creatinine mass ratio 28 mg/mg Normal [facility] Comment on above: Performed By: #### C BCDFC, CHM7, HFP, IPB, MGO, PTPTT ####[facility] [place] [address] ECHOCARDIOGRAM TRANSESOPHAGE AL (TALYOR)on 01-31-2018 ECHOCARDIOGRAM TRANSESOPHAGEAL (TAYLOR) Patient: Sowmya Olivares [facility] Rec#: [id number] : 1955 Date: 01/31/2018 Age: 62y Height: 180.3 cm / 70.3 inAccession#: [id number] Weight: 90.7 kg / 199.5 lbsSex: M BSA: 2.11Type: InpatientLoc: Den LabFelltoney (int): Ang Mike M.D.Referring: TAWANDA DODGE LReading: Gaston Noriega/C.H.BMalissaPerforming: Gaston Noriega/C.H.BMalissaNurse: Simba Valencia (per): Ang Mike M.D.Rhythm: Normal SinusHR: 77BP: 158/98 Transesophageal EchocardiogramConclusio ns1. There is normal LV size and function2. Normal RV size and function3. There is thickening and flail of the P2- scallop of the posteriorleaflet4. There is severe mitral regurgitation. 5. There is mild tricuspid regurgitation.6. There is mild pulmonic regurgitation. 7. No vegetation seenProcedure Info:The indication for study was endocarditis/bacteremia . Ultrasound device:ONTRAPORT. All staff members involved in the procedure completed a timeoutprior to the start of the exam verifying correct patient identity andcorrect procedure to be completed: 01/31/2018 15:39:36. Agitated salinewas used to assess for intracardiac shunt. Indication:Endocarditis Findings L Ventricle:The left ventricular chamber size is normal. Regional wall motion isnormal. R Ventricle:The right ventricular cavity size is normal. The right ventricularglobal systolic function is normal. L Atrium:The left atrial chamber size is normal. R Atrium:The right atrial cavity size is normal. Interatrial Septum:A patent foramen ovale is not demonstrated with color doppler oragitated saline contrast. Mitral V:Mitral valve leaflet mobility appears normal. The mitral valve leafletsare moderately thickened. There is evidence of a flail mitral valveleaflet. No vegetation is observed on the mitral valve. There is severemitral regurgitation. There is no evidence of mitral stenosis. Aortic V:The aortic valve structure is normal. There is no aortic vegetationpresent. There is no evidence of aortic regurgitation. There is noevidence of aortic stenosis. Tricuspid V:The tricuspid valve leaflets are normal. No vegetation is observed onthe tricuspid valve. There is mild tricuspid regurgitation. There is notricuspid stenosis. Pulmonic V:The pulmonic valve appears normal. No vegetation is observed on thepulmonic valve. There is mild pulmonic regurgitation. There is nopulmonic stenosis. Aorta:The aortic root dimension is normal. Pericardium:The pericardium appears normal. TAYLOR Detail:The procedure and risk were explained to the patient who consented tothe study. Color flow Doppler interrogation and agitated saline contrastecho were performed to assess for the presence of patent foramen ovale.TAYLOR Probe: ONTRAPORT 3D TAYLOR Inserted without difficulty. The probe waswell-tolerated. No complications were noted. Benzocaine 20% x 1 spray(s)administered for the procedure. Lidocaine gel 5% 1ml x 1 was appliedtopically to bilateraly pharyngeal area. I was present during theprocedure time-out, during the administration of sedation medications,and during the initial post-procedure monitoring. The total time Iprovided [id number] service beginning with the administration ofsedation medications until the patient was sufficiently recovered afterthe procedure was 31 minutes. Fentanyl 50 mcg IVP administered for theprocedure. Midazolam 4 mg IVP administered for the procedure. Nosedation-specific complications noted. Diagnosis codes:56308 Echocardiography, transesophageal, real-time with imagedocumentation (2D) (with or without M-mode recording); including probeplacement, image acquisition, interpretation and report. 52189 Dopplerechocardiography , pulsed wave and/or continuous wave with spectraldisplay; limited or followup. 94720 Doppler echocardiography color flowvelocity mapping. 74657 Moderate sedation services provided by the samephysician or other qualified health care specialist performing thediagnostic or therapeutic service that the sedation supports, requiringthe presence of an independent trained observer to assist in themonitoring of the patient's level of consciousness and physiologicalstatus; initial 15 minutes of intraservice time, patient age 3 years orolder. 29121 Moderate sedation services provided by the same physicianor other qualified health care specialist performing the diagnostic ortherapeutic service that the sedation supports, requiring the presenceof an independent trained observer to assist in the monitoring of thepatient's level of consciousness and physiological status; eachadditional 15 minutes intraservice time (List separately in addition tocode for primary service) Modifier GC should be added to CPT codes. 16:32:29CPT (R) [employer]. All Rights Reserved. The codesdocumented in this report are preliminary and upon elevator inspector review may berevised to meet current compliance requirements. Normal [facility] HEMOGRAM (CBC and Platelet)o n 01-31-2018 Hematocrit Auto Volume Fraction (Bld) 24.7 % Low 40.1-51.0 [facility] Comment on above: Performed By: #### C BCDFC, CHM7, HFP, IPB, MGO, PTPTT ####[facility] [place] [address], [address] [place] [address] Hemoglobin mass conc (Bld) 8.1 g/dL Low 13.7-17.5 [facility] Comment on above: Performed By: #### C BCDFC, CHM7, HFP, IPB, MGO, PTPTT ####[facility] [place], [place] [id number] [place] [address] MCV Auto Entitic volume (RBC) 93.9 fL High 79.0-92.2 [facility] Comment on above: Performed By: #### C BCDFC, CHM7, HFP, IPB, MGO, PTPTT ####[facility] [place], [place] [id number] [place] [address] Mean Cell Hgb 30.8 pg Normal 25.7-32.2 [facility] Comment on above: Performed By: #### C BCDFC, CHM7, HFP, IPB, MGO, PTPTT ####[facility] [place], [place] [id number] [place] [address] Mean Cell Hgb Conc 32.8 g/dL Normal 32.3-36.5 [facility] Comment on above: Performed By: #### C BCDFC, CHM7, HFP, IPB, MGO, PTPTT ####[facility] [place], [place] [id number] [place] [address] Nucleated RBC #/vol (Bld) 0.0 /100 WBC Normal 0.0-0.2 [facility] Comment on above: Performed By: #### C BCDFC, CHM7, HFP, IPB, MGO, PTPTT ####[facility] [place] [address], [place] [address] [place], [place] [address] [place] [address] Platelets Auto #/vol (Bld) 66 10*3/uL Low 163-337 [facility] Comment on above: Performed By: #### C BCDFC, CHM7, HFP, IPB, MGO, PTPTT ####[facility] [place] [address], [place] [address] [place], [place] [address] [place] [address]77 RBC Auto #/vol (Bld) 2.63 10*6/uL Low 4.63-6.08 [facility] Comment on above: Performed By: #### C BCDFC, CHM7, HFP, IPB, MGO, PTPTT ####[facility] [place] [address], [address] [place] [address] RBC Auto #/vol (Bld) 20.3 % High 11.6-14.4 [facility] Comment on above: Performed By: #### C BCDFC, CHM7, HFP, IPB, MGO, PTPTT ####[facility] [place] [address], [place] [address] [place], [place] [address] [place] [address]354 WBC Auto #/vol (Bld) 10.54 10*3/uL High 4.23-9.07 [facility] Comment on above: Performed By: #### C BCDFC, CHM7, HFP, IPB, MGO, PTPTT ####[facility] [place] [address], [place] [address] [place], [place] [address] [place] [address] 11721 Nucleated RBC #/vol (Bld) 4.8 /100 WBC High 0.0-0.2 [facility] Comment on above: Performed By: #### C BCDFC, CHM7, HFP, IPB, MGO, PTPTT ####[facility] [place] [address], [address] [place] [address] WBC Auto #/vol (Bld) 8.30 10*3/uL Normal 4.23-9.07 [facility] Comment on above: Performed By: #### C BCDFC, CHM7, HFP, IPB, MGO, PTPTT ####[facility] [place], [place] [id number] [place] [address] Hematocrit Auto Volume Fraction (Bld) 22.0 % Low 40.1-51.0 [facility] Comment on above: Performed By: #### C BCDFC, CHM7, HFP, IPB, MGO, PTPTT ####[facility] [place] [address], [address] [place] [address] Hemoglobin mass conc (Bld) 7.0 g/dL Low 13.7-17.5 [facility] Comment on above: Performed By: #### C BCDFC, CHM7, HFP, IPB, MGO, PTPTT ####[facility] [place] [address], [address] [place] [address] MCV Auto Entitic volume (RBC) 92.1 fL Normal 79.0-92.2 [facility] Comment on above: Performed By: #### C BCDFC, CHM7, HFP, IPB, MGO, PTPTT ####[facility] [place] [address], [address] [place] [address] Mean Cell Hgb 29.3 pg Normal 25.7-32.2 [facility] Comment on above: Performed By: #### C BCDFC, CHM7, HFP, IPB, MGO, PTPTT ####[facility] [place] [address], [place] [address] [place], [place] [address] [place] [address] 19899 Mean Cell Hgb Conc 31.8 g/dL Low 32.3-36.5 [facility] Comment on above: Performed By: #### C BCDFC, CHM7, HFP, IPB, MGO, PTPTT ####[facility] [place], [place] [address] [place] [address] Platelet mean volume Auto Entitic volume (Bld) 10.2 fL Normal 9.4-12.4 [facility] Comment on above: Performed By: #### C BCDFC, CHM7, HFP, IPB, MGO, PTPTT ####[facility] [place] [address], [address] [place] [address] Platelets Auto #/vol (Bld) 69 10*3/uL Low 163-337 [facility] Comment on above: Performed By: #### C BCDFC, CHM7, HFP, IPB, MGO, PTPTT ####[facility] [place], [place] [address] [place] [address] RBC Auto #/vol (Bld) 20.4 % High 11.6-14.4 [facility] Comment on above: Performed By: #### C BCDFC, CHM7, HFP, IPB, MGO, PTPTT ####[facility] [place], [place] [address] [place] [address] RBC Auto #/vol (Bld) 2.39 10*6/uL Low 4.63-6.08 [facility] Comment on above: Performed By: #### C BCDFC, CHM7, HFP, IPB, MGO, PTPTT ####[facility] [facility], [place] [address]HnafvsKettering Health Dayton[address] [place], [place] [address] HGB & HCTon 01-31-2018 Hematocrit Auto Volume Fraction (Bld) 28.4 % Low 40.1-51.0 [facility] Comment on above: Performed By: #### C BCDFC, CHM7, HFP, IPB, MGO, PTPTT ####[facility] [facility], [place] [address]EcoyawKettering Health Dayton[address] [place], [place] [address] Hemoglobin mass conc (Bld) 9.0 g/dL Low 13.7-17.5 [facility] Comment on above: Performed By: #### C BCDFC, CHM7, HFP, IPB, MGO, PTPTT ####[facility] [facility], [place] [address]HpqxzkKettering Health Dayton[address] [place] [address]2380 Phosphatidylserine Ab Panelo n 01-31-2018 IgA Phosphatidylserine Ab <20 Normal <20 [facility] Comment on above: Result Comment: (NOT E)Phosphatidylserine (IgG)Reference range: <10 U/mL Olwwwgio37-89 U/mL Equivocal - Found in small percentage of the healthy population; may be reactive >20 U/mL Positive - Risk factor for thrombosis and loss.Phosphatidylserine (IgM)Reference range: <25 U/mL Wbryrqpm55-95 U/mL Equivocal - Found in small percentage of the healthy population; may be reactive >35 U/mL Positive - Risk factor for thrombosis and lossPhosphatidylserine (IgA)Reference range: <20 U/mL Ddnmzude40-28 U/mL Equivocal - Found in small percentage of the healthy population; may be reactive >30 U/mL Positive - Risk factor for thrombosisThe Antiphospholipid Antibody Syndrome (APS) is aclinical-pathologic correlation that includes aclinical event (e.g. thrombosis, loss,thrombocytopenia) and persistent positiveAntiphospholipid Antibodies (IgM or IgG LEE ANN >40MPL/GPL, IgM or IgG anti-B2GPI antibodies, or a LupusAnticoagulant). The IgA isotype has been implicatedin smaller studies, but have not yet been incorporatedinto the APS criteria. International consensusguidelines suggest waiting at least 12 weeks beforeretesting to confirm antibody persistence.Reference J Thromb Haemost 2006: 4; 295For more information on this test, go tohttp://education.Blend/faq/XNA726Eoaf Performed by [facility] PharmaceuticalsPromedica [facility],[employer] [facility],[address] [place] [id number] Judge M.D., Ph.D., Director of [phone], [place] [id number] sent to [facility] Performed By: #### C BCDFC, CHM7, HFP, IPB, MGO, PTPTT ####[place] [address] [place], [place] [address] [place] [address] IgG Phosphatidylserine Ab <10 Normal <10 [facility] Comment on above: Performed By: #### C BCDFC, CHM7, HFP, IPB, MGO, PTPTT ####[facility] [place], [place] [address] [place] [address] IgM Phosphatidylserine Ab <25 Normal <25 [facility] Comment on above: Performed By: #### C BCDFC, CHM7, HFP, IPB, MGO, PTPTT ####[place] [address] [place] [address] [address] [place] [address] Platelet Count Batteryon Platelet mean volume Auto Entitic volume (Bld) 10.1 fL Normal 9.4-12.4 [facility] Comment on above: Performed By: #### C BCDFC, CHM7, HFP, IPB, MGO, PTPTT ####[facility] [place] [address], [place] [address] [place], [place] [address] [place] [address]66[address] Platelets Auto #/vol (Bld) 75 10*3/uL Low 163-337 [facility] Comment on above: Performed By: #### C BCDFC, CHM7, HFP, IPB, MGO, PTPTT ####[facility] [place] [address], [place] [address]M[address]jqen[address] [place], [place] [id number] [place] [address] Type and Renetta 01-31-2018 Type and Cross ABO/RH(D): B POSITIVEANTIBODY SCREEN: NEGATIVEUNIT NUMBER: [id number] COMPONENT TYPE: Red Cells, Leukoreduced_[id number] ATUS OF UNIT: Issued, FinalTRANSFUSION STATUS: OK TO TRANSFUSECROSSMATCH RESULT: CompatibleUNIT NUMBER: [id number] COMPONENT TYPE: Red Cells, Leukoreduced_E0336V00ST ATUS OF UNIT: Issued, FinalTRANSFUSION STATUS: OK TO TRANSFUSECROSSMATCH RESULT: CompatibleUNIT NUMBER: [id number] COMPONENT TYPE: Red Cells, Leukoreduced_E0336V00ST ATUS OF UNIT: Issued, FinalTRANSFUSION STATUS: OK TO TRANSFUSECROSSMATCH RESULT: CompatibleUNIT NUMBER: [id number] COMPONENT TYPE: Red Cells, Leukoreduced_E0336V00ST ATUS OF UNIT: Issued, FinalTRANSFUSION STATUS: OK TO TRANSFUSECROSSMATCH RESULT: Compatible Normal [facility] Comment on above: Performed By: #### C BCDFC, CHM7, HFP, IPB, MGO, PTPTT ####[facility] [facility], [place] [address] [place], [place] [id number] [place] [address] CHEM 7on 01-30-2018 Anion gap 3 molar conc 12 mmol/L Normal 7-17 [facility] Comment on above: Performed By: #### C BCDFC, CHM7, HFP, IPB, MGO, PTPTT ####[facility] [place] [id number] [place], [place] [id number] [place] [address] Chloride molar conc 111 mmol/L High 98-108 [facility] Comment on above: Performed By: #### C BCDFC, CHM7, HFP, IPB, MGO, PTPTT ####[facility] [place] [address], [address] [place] [address] CO2 molar conc 20 mmol/L Low 22-30 [facility] Comment on above: Performed By: #### C BCDFC, CHM7, HFP, IPB, MGO, PTPTT ####[facility] [place] [address], [address] [place] [address] Creatinine mass conc 1.69 mg/dL High 0.70-1.30 [facility] Comment on above: Performed By: #### C BCDFC, CHM7, HFP, IPB, MGO, PTPTT ####[facility] [place], [place] [id number] [place] [address]80 Est GFR, 50 mL/min/1.73sqM Low >60 [facility] Comment on above: Performed By: #### C BCDFC, CHM7, HFP, IPB, MGO, PTPTT ####[facility] [place], [place] [id number] [address] [place] [address]998 Est GFR,non 41 mL/min/1.73sqM Low >60 [facility] Comment on above: Performed By: #### C BCDFC, CHM7, HFP, IPB, MGO, PTPTT ####[facility] [place], [place] [id number] [address] [place] [address] Glucose mass conc 150 mg/dL High 70-99 [facility] Comment on above: Performed By: #### C BCDFC, CHM7, HFP, IPB, MGO, PTPTT ####[facility] [place] [id number] [place], [place] [id number] [place] [address] Osmolality 308 mOsm/kg High 278-305 [facility] Comment on above: Performed By: #### C BCDFC, CHM7, HFP, IPB, MGO, PTPTT ####[facility] [place], [place] [id number] [place] [address] Potassium molar conc 4.3 mmol/L Normal 3.5-5.0 [facility] Comment on above: Performed By: #### C BCDFC, CHM7, HFP, IPB, MGO, PTPTT ####[facility] [place] [id number] [place], [place] [id number] [place] [address] 77267 Sodium molar conc 139 mmol/L Normal 133-143 [facility] Comment on above: Performed By: #### C BCDFC, CHM7, HFP, IPB, MGO, PTPTT ####[facility] [place], [place] [id number] [place] [address]4087 Urea nitrogen mass conc 50 mg/dL High 7-22 [facility] Comment on above: Performed By: #### C BCDFC, CHM7, HFP, IPB, MGO, PTPTT ####[facility] [place], [place] [id number] [address] [place] [address] Urea nitrogen/Creatinine mass ratio 30 mg/mg Normal [facility] Comment on above: Performed By: #### C BCDFC, CHM7, HFP, IPB, MGO, PTPTT ####[facility] [place], [place] [id number] [place] [address] NEREIDA Battery, Multiplexon [employer]GER Antibody Negative Normal Negative [facility] Comment on above: Performed By: #### C BCDFC, CHM7, HFP, IPB, MGO, PTPTT ####[facility] [place], [place] [id number] [place] [address] Carpio Antibody Negative Normal Negative [facility] Comment on above: Performed By: #### C BCDFC, CHM7, HFP, IPB, MGO, PTPTT ####[facility] [place], [place] [id number] [place] [address] SSA Antibody Negative Normal Negative [facility] Comment on above: Performed By: #### C BCDFC, CHM7, HFP, IPB, MGO, PTPTT ####[facility] [place], [place] [id number] [place] [address] SSB Antibody Negative Normal Negative [facility] Comment on above: Performed By: #### C BCDFC, CHM7, HFP, IPB, MGO, PTPTT ####[facility] [place], [place] [id number] [place] [address] HEMOGRAM (CBC and Platelet)o n 01-30-2018 Hematocrit Auto Volume Fraction (Bld) 22.8 % Low 40.1-51.0 [facility] Comment on above: Performed By: #### C BCDFC, CHM7, HFP, IPB, MGO, PTPTT ####[facility] [place], [place] [id number] [place] [address] Hemoglobin mass conc (Bld) 7.5 g/dL Low 13.7-17.5 [facility] Comment on above: Performed By: #### C BCDFC, CHM7, HFP, IPB, MGO, PTPTT ####[facility] [place], [place] [id number] [place] [address] MCV Auto Entitic volume (RBC) 93.4 fL High 79.0-92.2 [facility] Comment on above: Performed By: #### C BCDFC, CHM7, HFP, IPB, MGO, PTPTT ####[facility] [place], [place] [id number] [place] [address] Mean Cell Hgb 30.7 pg Normal 25.7-32.2 [facility] Comment on above: Performed By: #### C BCDFC, CHM7, HFP, IPB, MGO, PTPTT ####[facility] [place], [place] [id number] [place] [address] Mean Cell Hgb Conc 32.9 g/dL Normal 32.3-36.5 [facility] Comment on above: Performed By: #### C BCDFC, CHM7, HFP, IPB, MGO, PTPTT ####[facility] [place], [place] [id number] [place] [address] Nucleated RBC #/vol (Bld) 0.0 /100 WBC Normal 0.0-0.2 [facility] Comment on above: Performed By: #### C BCDFC, CHM7, HFP, IPB, MGO, PTPTT ####[facility] [place] [address], [address] [place] [address] Platelet mean volume Auto Entitic volume (Bld) 10.2 fL Normal 9.4-12.4 [facility] Comment on above: Performed By: #### C BCDFC, CHM7, HFP, IPB, MGO, PTPTT ####[facility] [place], [place] [id number] [address] [place] [address] Platelets Auto #/vol (Bld) 78 10*3/uL Low 163-337 [facility] Comment on above: Performed By: #### C BCDFC, CHM7, HFP, IPB, MGO, PTPTT ####[facility] [place], [place] [id number] [address] [place] [address] RBC Auto #/vol (Bld) 20.6 % High 11.6-14.4 [facility] Comment on above: Performed By: #### C BCDFC, CHM7, HFP, IPB, MGO, PTPTT ####[facility] [place], [place] [id number] [address] [place] [address] RBC Auto #/vol (Bld) 2.44 10*6/uL Low 4.63-6.08 [facility] Comment on above: Performed By: #### C BCDFC, CHM7, HFP, IPB, MGO, PTPTT ####[facility] [place] [address], [address] [place] [address] WBC Auto #/vol (Bld) 9.05 10*3/uL Normal 4.23-9.07 [facility] Comment on above: Performed By: #### C BCDFC, CHM7, HFP, IPB, MGO, PTPTT ####[facility] [place] [address], [address] [place] [address] Platelet mean volume Auto Entitic volume (Bld) 10.6 fL Normal 9.4-12.4 [facility] Comment on above: Performed By: #### C BCDFC, CHM7, HFP, IPB, MGO, PTPTT ####[facility] [place] [address], [address] [place] [address] Platelets Auto #/vol (Bld) 92 10*3/uL Low 163-337 [facility] Comment on above: Result Comment: Auto mated platelet count confirmed by manual slide review Performed By: #### C BCDFC, CHM7, HFP, IPB, MGO, PTPTT ####[facility] [place] [address], [address] [place] [address] Hematocrit Auto Volume Fraction (Bld) 23.5 % Low 40.1-51.0 [facility] Comment on above: Performed By: #### C BCDFC, CHM7, HFP, IPB, MGO, PTPTT ####[facility] [place] [address], [address] [place] [address] Hemoglobin mass conc (Bld) 7.5 g/dL Low 13.7-17.5 [facility] Comment on above: Performed By: #### C BCDFC, CHM7, HFP, IPB, MGO, PTPTT ####[facility] [address] [place] [address], [place] [address] [place], [place] [id number] [place] [address] 11779 MCV Auto Entitic volume (RBC) 93.6 fL High 79.0-92.2 [facility] Comment on above: Performed By: #### C BCDFC, CHM7, HFP, IPB, MGO, PTPTT ####[facility] [place], [place] [id number] [address] [place] [address] Mean Cell Hgb 29.9 pg Normal 25.7-32.2 [facility] Comment on above: Performed By: #### C BCDFC, CHM7, HFP, IPB, MGO, PTPTT ####[facility] [place] [address], [address] [place] [address] Mean Cell Hgb Conc 31.9 g/dL Low 32.3-36.5 [facility] Comment on above: Performed By: #### C BCDFC, CHM7, HFP, IPB, MGO, PTPTT ####[facility] [place], [place] [id number] [address] [place] [address] Nucleated RBC #/vol (Bld) 0.0 /100 WBC Normal 0.0-0.2 [facility] Comment on above: Performed By: #### C BCDFC, CHM7, HFP, IPB, MGO, PTPTT ####[facility] [place], [place] [id number] [address] [place] [address] RBC Auto #/vol (Bld) 21.2 % High 11.6-14.4 [facility] Comment on above: Performed By: #### C BCDFC, CHM7, HFP, IPB, MGO, PTPTT ####[facility] [place] [address], [place] [address] [place], [place] [id number] [address] [place] [address] RBC Auto #/vol (Bld) 2.51 10*6/uL Low 4.63-6.08 [facility] Comment on above: Performed By: #### C BCDFC, CHM7, HFP, IPB, MGO, PTPTT ####[facility] [place] [address], [place] [address] [place], [place] [id number] [address] [place] [address] WBC Auto #/vol (Bld) 11.07 10*3/uL High 4.23-9.07 [facility] Comment on above: Performed By: #### C BCDFC, CHM7, HFP, IPB, MGO, PTPTT ####[facility] [place] [address], [address] [place] [address] TRANSFUSE PLATELETSon 2017 TRANSFUSE PLATELETS CROSSMATCH EXPIRATIO N: 02/03/2018 UNIT NUMBER: [id number] BLOOD COMPONENT TYPE: Platelet Pheresis,Leukoreduced,I rr_[id number] STATUS OF UNIT: Issued, Final TRANSFUSION STATUS: OK TO TRANSFUSE Normal [facility] Comment on above: Performed By: #### C BCDFC, CHM7, HFP, IPB, MGO, PTPTT ####[facility] [place] [address], [address] [place] [address] *POC GLUCOSE BATTERYon 01-29 *POC SAMPLE TYPE Capillary Blood Normal [facility] Glucose mass conc 163 mg/dL High 70-99 [facility] Comment on above: Result Comment: No B RAVE per RN: PATIENT TYPE CHEM 701-29-2018 Anion gap 3 molar conc 12 mmol/L Normal 7-17 [facility] Comment on above: Performed By: #### C BCDFC, CHM7, HFP, IPB, MGO, PTPTT ####[facility] [place] [address], [place] [address] [place], [place] [id number] [address] [place] [address]78 Chloride molar conc 110 mmol/L High 98-108 [facility] Comment on above: Performed By: #### C BCDFC, CHM7, HFP, IPB, MGO, PTPTT ####[facility] [place] [address], [address] [place] [address]28 CO2 molar conc 21 mmol/L Low 22-30 [facility] Comment on above: Performed By: #### C BCDFC, CHM7, HFP, IPB, MGO, PTPTT ####[facility] [place] [address], [address] [place] [address] 28878 Creatinine mass conc 1.86 mg/dL High 0.70-1.30 [facility] Comment on above: Performed By: #### C BCDFC, CHM7, HFP, IPB, MGO, PTPTT ####[facility] [place] [address], [address] [place] [address] 98475 Est GFR, 44 mL/min/1.73sqM Low >60 [facility] Comment on above: Performed By: #### C BCDFC, CHM7, HFP, IPB, MGO, PTPTT ####[facility] [place], [place] [id number] [place] [address] 84993 Est GFR,non 37 mL/min/1.73sqM Low >60 [facility] Comment on above: Performed By: #### C BCDFC, CHM7, HFP, IPB, MGO, PTPTT ####[facility] [place], [place] [id number] [address] [place] [address] Glucose mass conc 121 mg/dL High 70-99 [facility] Comment on above: Performed By: #### C BCDFC, CHM7, HFP, IPB, MGO, PTPTT ####[facility] [place] [id number] [place], [place] [address] [address] [place] [address] Osmolality 306 mOsm/kg High 278-305 [facility] Comment on above: Performed By: #### C BCDFC, CHM7, HFP, IPB, MGO, PTPTT ####[facility] [place], [place] [id number] [address] [place] [address] Potassium molar conc 4.3 mmol/L Normal 3.5-5.0 [facility] Comment on above: Performed By: #### C BCDFC, CHM7, HFP, IPB, MGO, PTPTT ####[facility] [place] [address] [place], [place] [address] [place] [address] Sodium molar conc 139 mmol/L Normal 133-143 [facility] Comment on above: Performed By: #### C BCDFC, CHM7, HFP, IPB, MGO, PTPTT ####[facility] [place], [place] [address] [place] [address]797 Urea nitrogen mass conc 49 mg/dL High 7-22 [facility] Comment on above: Performed By: #### C BCDFC, CHM7, HFP, IPB, MGO, PTPTT ####[facility] [facility], [place] [address]EneykuK[facility]tering Health [facility] [place], [place] [address] Urea nitrogen/Creatinine mass ratio 26 mg/mg Normal [facility] Comment on above: Performed By: #### C BCDFC, CHM7, HFP, IPB, MGO, PTPTT ####[facility] [facility], [place] [address]PoatsnKettering Health Dayton[address] [place], [place] [address] CT ABDOMEN/PELVIS WITHOUT CO NTRASTon 01-29-2018 CT ABDOMEN/PELVIS WITHOUT CONTRAST EXAM: CT ABDOMEN/PELVIS WITHOUT CONTRAST, 01/29/2018 06:47 AMCOMPARISON: No prior studies available for comparison.CLINICAL INDICATIONS: Evaluate for intraabdominal bleed; TECHNIQUE: Helical axial images of the abdomen and pelvis were performed fromthe domes of the diaphragm to the ischial tuberosities without theadministration of intravenous contrast. No Oral contrast was administered.Coronal 2 mm reconstructions were also made.CONTRAST:NoneThis patient underwent a CT examination using radiation exposure as low asreasonably achievable. CTDIvol and DLP radiation exposure values for eachseries were:Exposure: 1; Series: 2; Anatomy: Abdomen; Phantom: 32 cm; CTDIvol: 14; DLP: 808The dose indicators for CT are the volume Computed Tomography (CT) Dose Index(CTDIvol) and the Dose Length Product (DLP), and are measured in units of mGyand mGy-cm, respectively. These indicators are not patient dose, but valuesgenerated from the CT scanner acquisition factors and may substantiallyunderestim ate or overestimate the absorbed dose based on patient size andother factors.FINDINGS: Lung Bases: Visualized lung bases reveal atelectatic changes in the lower lobes with somepatchy groundglass attenuation in the lower lobes. No pleural or pericardialeffusion.The re is visualization of the interventricular septum suggesting lowhematocrit levels. Thoracic aorta appears slightly tortuousABDOMENLimited evaluation of the abdominal viscera due to lack of intravenous andenteric contrast Liver:Liver is normal in size and morphology. Tiny hepatic hypodensities in theright and left hepatic lobes are indeterminate and too small to characterize.Small subcapsular hypodensity in the anterior left hepatic lobe isindeterminate and measures 1.7 x 2.3 cm in size on image 39. No intrahepaticbiliary ductal dilatation. No perihepatic fluid or collection is seenBiliary/Gallbladder : The gallbladder is distended without evidence of radiopaque stones. Thebiliary tree is nondilated.Spleen:Splee n is normal in size and CT density. No suspicious focal splenic lesions.There is some diffuse perisplenic and left subdiaphragmatic fluid/hematomawith no organized perisplenic collections seen on this study. Small splenuleclose to the hilum of the spleen. Pancreas: Pancreas shows no discrete focal lesions or ductal dilatation. Inflammatorychanges with some peripancreatic fat stranding along the tail of the pancreas.Some peripancreatic fluid is also seen. No organized peripancreaticcollectio nsKidneys: There is a large left perinephric hematoma with displacement of the leftkidney anteriorly and medially. This could be related to recent renal biopsy.There is patchy fluid and layering of blood products noted in the leftposterior and lateral perinephric spaces with hyperdense fluid seen trackingalong the left psoas muscle into the left anterior pelvis throughout theretroperitoneum.This hemorrhage/hematoma extends for a vertical length of 28 cm anapproximately measures 7.7 cm in maximum width. Some associated inflammatoryfat stranding is seen in the left retroperitoneum.Multipl e bilateral peripelvic cysts are suspected with small calcific fociwhich could represent cyst wall calcifications. No definite hydronephrosisnoted on this study. Ureters are nondilated.Adrenals: Left adrenal gland is not well-visualized with no definite left adrenalhematoma. Right adrenal gland is unremarkableRetroperito selena/Lymph Nodes/Vasculature: Abdominal aorta and the midline vessels are normal in caliber with scatteredvascular calcifications.There is a large left perinephric and left retroperitoneal hematoma trackingalong the left psoas muscle into the left anterior pelvis with associatedsurrounding fat stranding as described above. There is some presacralfluid/edema with a small amount of intraperitoneal fluid in the pelvis.Minimal free fluid in the right lower quadrantNo discrete enlarged upper abdominal or retroperitoneal nodesGastrointestinal/M esentery: Stomach is collapsed limiting detailed evaluation. The small bowel loops aregrossly unremarkable and nonobstructed. No mesenteric mass or adenopathy isseen.Appendix: Not clearly visualizedFecal residue is noted within the colonic loops limiting detailed evaluation.Some paracolic stranding and fluid is noted on the left side posteriorly.PELVISBladd er: Bladder is partly distended with no gross mass lesions or calculi. Subtlediffuse bladder wall thickening could be related to chronic outletobstruction. Distal ureters are nondilatedGenital: Prostate is slightly prominent with foci of calcifications. Seminal vesiclesare symmetric. Vascular calcifications are seen in the pelvis. Small amount ofpelvic free fluid with presacral fluidLarge extraperitoneal hematoma in the left pelvis as described above. Nopelvic or inguinal lymphadenopathy. There is fluid and edema noted in the leftinguinal canal with a small left hydrocele.Some skin thickening in the region of the umbilicus with a possible smallumbilical hernia. Some edema along the flanks and in the proximal thighs.Bony Structures: Visualized bony structures are consistent with the patient's age. There aredegenerative changes in the visualized spine and the pelvic bones. Nosuspicious focal osseous lesionsIMPRESSION: 1. Large left perinephric and retroperitoneal hemorrhage/hematoma extendingfrom the perinephric soft tissues down into the anterior pelvis. Minimalhydrocele on the left side with some edema in the inguinal canal. Small amountof intraperitoneal fluid in the pelvis and in the flanks.2. Bilateral peripelvic cysts with displacement of the left kidney anteriorlydue to the large left perinephric hematoma. No definite hydroureteronephrosis.3 . Multiple small hepatic hypodensities are indeterminate and difficult tocharacterize without contrast.4. No acute bowel obstruction or free air.5. Mild prominence of the prostate gland with subtle postobstructive bladderwall thickening.6. Mild body wall edema Normal [facility] HEMOGRAM (CBC and Platelet)o n 01-29-2018 Hematocrit Auto Volume Fraction (Bld) 20.9 % Low 40.1-51.0 [facility] Comment on above: Performed By: #### C BCDFC, CHM7, HFP, IPB, MGO, PTPTT ####[facility] [place] [id number] [place], [place] [address] [place] [address] Hemoglobin mass conc (Bld) 6.4 g/dL Critically low 13.7-17.5 [facility] Comment on above: Result Comment: This result has been called to HOMA GUEVARA by Jannie Lucio on 01 29 2018 at 0321, and has been read back. Performed By: #### C BCDFC, CHM7, HFP, IPB, MGO, PTPTT ####[facility] [place], [place] [id number] [place] [address] MCV Auto Entitic volume (RBC) 92.9 fL High 79.0-92.2 [facility] Comment on above: Performed By: #### C BCDFC, CHM7, HFP, IPB, MGO, PTPTT ####[facility] [place], [place] [address] [address] [place] [address] Mean Cell Hgb 28.4 pg Normal 25.7-32.2 [facility] Comment on above: Performed By: #### C BCDFC, CHM7, HFP, IPB, MGO, PTPTT ####[facility] [place], [place] [id number] [place] [address] Mean Cell Hgb Conc 30.6 g/dL Critically low 32.3-36.5 [facility] Comment on above: Performed By: #### C BCDFC, CHM7, HFP, IPB, MGO, PTPTT ####[facility] [place], [place] [address] [address] [place] [address] Nucleated RBC #/vol (Bld) 0.0 /100 WBC Normal 0.0-0.2 [facility] Comment on above: Performed By: #### C BCDFC, CHM7, HFP, IPB, MGO, PTPTT ####[facility] [place] [id number] [place], [place] [address] [place] [address] 12429 Platelet mean volume Auto Entitic volume (Bld) 9.9 fL Normal 9.4-12.4 [facility] Comment on above: Performed By: #### C BCDFC, CHM7, HFP, IPB, MGO, PTPTT ####[facility] [place] [address], [address] [place] [address] Platelets Auto #/vol (Bld) 112 10*3/uL Low 163-337 [facility] Comment on above: Performed By: #### C BCDFC, CHM7, HFP, IPB, MGO, PTPTT ####[facility] [place] [address], [place] [address] [place], [place] [address] [place] [address] 79477 RBC Auto #/vol (Bld) 2.25 10*6/uL Low 4.63-6.08 [facility] Comment on above: Performed By: #### C BCDFC, CHM7, HFP, IPB, MGO, PTPTT ####[facility] [place] [address], [address] [place] [address]62 RBC Auto #/vol (Bld) 22.9 % High 11.6-14.4 [facility] Comment on above: Performed By: #### C BCDFC, CHM7, HFP, IPB, MGO, PTPTT ####[facility] [facility], [address] [place] [address] WBC Auto #/vol (Bld) 9.09 10*3/uL High 4.23-9.07 [facility] Comment on above: Performed By: #### C BCDFC, CHM7, HFP, IPB, MGO, PTPTT ####[facility] [place], [place] [address] [place] [address] HGB & HCTon 01-29-2018 Hematocrit Auto Volume Fraction (Bld) 22.4 % Low 40.1-51.0 [facility] Comment on above: Performed By: #### C BCDFC, CHM7, HFP, IPB, MGO, PTPTT ####[facility] [place], [place] [id number] [place] [address] Hemoglobin mass conc (Bld) 7.1 g/dL Low 13.7-17.5 [facility] Comment on above: Performed By: #### C BCDFC, CHM7, HFP, IPB, MGO, PTPTT ####[facility] [place], [place] [id number] [address] [place] [address] Hematocrit Auto Volume Fraction (Bld) 22.3 % Low 40.1-51.0 [facility] Comment on above: Performed By: #### C BCDFC, CHM7, HFP, IPB, MGO, PTPTT ####[facility] [place] [address], [address] [place] [address] Hemoglobin mass conc (Bld) 7.1 g/dL Low 13.7-17.5 [facility] Comment on above: Performed By: #### C BCDFC, CHM7, HFP, IPB, MGO, PTPTT ####[facility] [place] [address], [address] [place] [address] PTTon 01-29-2018 aPTT Coag time (Bld) 102.3 s Critically high 24.0-34.3 [facility] Comment on above: Performed By: #### C BCDFC, CHM7, HFP, IPB, MGO, PTPTT ####[facility] [place], [place] [id number] [address] [place] [address] aPTT Coag time (Bld) 79.5 s Critically high 24.0-34.3 [facility] Comment on above: Performed By: #### C BCDFC, CHM7, HFP, IPB, MGO, PTPTT ####[facility] [place], [place] [id number] [address] [place] [address] CHEM 7on 01-28-2018 Anion gap 3 molar conc 13 mmol/L Normal 7-17 [facility] Comment on above: Performed By: #### H EMOGC, RETIC, CHM7, MGO, FT4, TSH, HEP3B ####[facility] [place], [place] [id number] [address] [place] [address] Chloride molar conc 113 mmol/L High 98-108 [facility] Comment on above: Performed By: #### H EMOGC, RETIC, CHM7, MGO, FT4, TSH, HEP3B ####[facility] [place], [place] [id number] [address] [place] [address] CO2 molar conc 20 mmol/L Low 22-30 [facility] Comment on above: Performed By: #### H EMOGC, RETIC, CHM7, MGO, FT4, TSH, HEP3B ####[facility] [place], [place] [id number] [place] [address] Creatinine mass conc 1.71 mg/dL High 0.70-1.30 [facility] Comment on above: Performed By: #### H EMOGC, RETIC, CHM7, MGO, FT4, TSH, HEP3B ####[facility] [place], [place] [id number] [address] [place] [address] Est GFR, 49 mL/min/1.73sqM Low >60 [facility] Comment on above: Performed By: #### H EMOGC, RETIC, CHM7, MGO, FT4, TSH, HEP3B ####[facility] [place], [place] [id number] [address] [place] [address] Est GFR,non 41 mL/min/1.73sqM Low >60 [facility] Comment on above: Performed By: #### H EMOGC, RETIC, CHM7, MGO, FT4, TSH, HEP3B ####[facility] [place], [place] [id number] [address] [place] [address] Glucose mass conc 113 mg/dL High 70-99 [facility] Comment on above: Performed By: #### H EMOGC, RETIC, CHM7, MGO, FT4, TSH, HEP3B ####[facility] [place], [place] [id number] [address] [place] [address] Osmolality 311 mOsm/kg High 278-305 [facility] Comment on above: Performed By: #### H EMOGC, RETIC, CHM7, MGO, FT4, TSH, HEP3B ####[facility] [place], [place] [id number] [address] [place] [address] Potassium molar conc 3.9 mmol/L Normal 3.5-5.0 [facility] Comment on above: Performed By: #### H EMOGC, RETIC, CHM7, MGO, FT4, TSH, HEP3B ####[facility] [place], [place] [id number] [address] [place] [address] Sodium molar conc 142 mmol/L Normal 133-143 [facility] Comment on above: Performed By: #### H EMOGC, RETIC, CHM7, MGO, FT4, TSH, HEP3B ####[facility] [place], [place] [id number] [address] [place] [address] Urea nitrogen mass conc 51 mg/dL High 7- O [facility] Comment on above: Performed By: #### H EMOGC, RETIC, CHM7, MGO, FT4, TSH, HEP3B ####[facility] [place], [place] [id number] [address] [place] [address] Urea nitrogen/Creatinine mass ratio 30 mg/mg Normal [facility] Comment on above: Performed By: #### H EMOGC, RETIC, CHM7, MGO, FT4, TSH, HEP3B ####[facility] [place], [place] [id number] [address] [place] [address] HEMOGRAM (CBC and Platelet)o n 01-28-2018 Hematocrit Auto Volume Fraction (Bld) 25.0 % Low 40.1-51.0 [facility] Comment on above: Performed By: #### H EMOGC, RETIC, CHM7, MGO, FT4, TSH, HEP3B ####[facility] [place], [place] [id number] [address] [place] [address] Hemoglobin mass conc (Bld) 7.8 g/dL Low 13.7-17.5 [facility] Comment on above: Performed By: #### H EMOGC, RETIC, CHM7, MGO, FT4, TSH, HEP3B ####[facility] [place], [place] [id number] [address] [place] [address] MCV Auto Entitic volume (RBC) 92.3 fL High 79.0-92.2 [facility] Comment on above: Performed By: #### H EMOGC, RETIC, CHM7, MGO, FT4, TSH, HEP3B ####[facility] [place], [place] [id number] [address] [place] [address] Mean Cell Hgb 28.8 pg Normal 25.7-32.2 [facility] Comment on above: Performed By: #### H EMOGC, RETIC, CHM7, MGO, FT4, TSH, HEP3B ####[facility] [place], [place] [id number] [address] [place] [address] Mean Cell Hgb Conc 31.2 g/dL Low 32.3-36.5 [facility] Comment on above: Performed By: #### H EMOGC, RETIC, CHM7, MGO, FT4, TSH, HEP3B ####[facility] [place], [place] [id number] [address] [place] [address] Nucleated RBC #/vol (Bld) 0.0 /100 WBC Normal 0.0-0.2 [facility] Comment on above: Performed By: #### H EMOGC, RETIC, CHM7, MGO, FT4, TSH, HEP3B ####[facility] [place], [place] [id number] [place] [address] Platelet mean volume Auto Entitic volume (Bld) 9.6 fL Normal 9.4-12.4 [facility] Comment on above: Performed By: #### H EMOGC, RETIC, CHM7, MGO, FT4, TSH, HEP3B ####[facility] [place], [place] [id number] [address] [place] [address] Platelets Auto #/vol (Bld) 101 10*3/uL Low 163-337 [facility] Comment on above: Performed By: #### H EMOGC, RETIC, CHM7, MGO, FT4, TSH, HEP3B ####[facility] [place], [place] [id number] [address] [place] [address] RBC Auto #/vol (Bld) 22.8 % High 11.6-14.4 [facility] Comment on above: Performed By: #### H EMOGC, RETIC, CHM7, MGO, FT4, TSH, HEP3B ####[facility] [place], [place] [id number] [address] [place] [address] RBC Auto #/vol (Bld) 2.71 10*6/uL Low 4.63-6.08 [facility] Comment on above: Performed By: #### H EMOGC, RETIC, CHM7, MGO, FT4, TSH, HEP3B ####[facility] [place], [place] [id number] [address] [place] [address] WBC Auto #/vol (Bld) 8.86 10*3/uL Normal 4.23-9.07 [facility] Comment on above: Performed By: #### H EMOGC, RETIC, CHM7, MGO, FT4, TSH, HEP3B ####[facility] [place] [address], [place] [address]LlxufwKettering Health Dayton[address] [place] [address] PTTon 01-28-2018 aPTT Coag time (Bld) 74.4 s Critically high 24.0-34.3 [facility] Comment on above: Performed By: #### C BCDFC, CHM7, HFP, IPB, MGO, PTPTT ####[facility] [place], [place] [id number] [address] [place] [address] aPTT Coag time (Bld) 115.3 s Critically high 24.0-34.3 [facility] Comment on above: Performed By: #### H EMOGC, RETIC, CHM7, MGO, FT4, TSH, HEP3B ####[facility] [place] [address], [address] [place] [address] aPTT Coag time (Bld) 100.8 s Critically high 24.0-34.3 [facility] Comment on above: Performed By: #### H EMOGC, RETIC, CHM7, MGO, FT4, TSH, HEP3B ####[facility] [place], [place] [id number] [address] [place] [address] aPTT Coag time (Bld) 113.2 s Critically high 24.0-34.3 [facility] Comment on above: Performed By: #### H EMOGC, RETIC, CHM7, MGO, FT4, TSH, HEP3B ####[facility] [place], [place] [id number] [address] [place] [address] Rheumatoid Factor (RF)on Rheumatoid Factor (RF) 93 IU/mL High 0-14 [facility] Comment on above: Performed By: #### H EMOGC, RETIC, CHM7, MGO, FT4, TSH, HEP3B ####[facility] [place], [place] [id number] [address] [place] [address] CHEM 7on 01-27-2018 Anion gap 3 molar conc 12 mmol/L Normal 7-17 [facility] Comment on above: Performed By: #### H EMOGC, RETIC, CHM7, MGO, FT4, TSH, HEP3B ####[facility] [place], [place] [id number] [address] [place] [address] Chloride molar conc 112 mmol/L High 98-108 [facility] Comment on above: Performed By: #### H EMOGC, RETIC, CHM7, MGO, FT4, TSH, HEP3B ####[facility] [place], [place] [id number] [address] [place] [address] CO2 molar conc 21 mmol/L Low 22-30 [facility] Comment on above: Performed By: #### H EMOGC, RETIC, CHM7, MGO, FT4, TSH, HEP3B ####[facility] [place], [place] [id number] [address] [place] [address] Creatinine mass conc 1.98 mg/dL High 0.70-1.30 [facility] Comment on above: Performed By: #### H EMOGC, RETIC, CHM7, MGO, FT4, TSH, HEP3B ####[facility] [place], [place] [id number] [address] [place] [address] Est GFR, 41 mL/min/1.73sqM Low >60 [facility] Comment on above: Performed By: #### H EMOGC, RETIC, CHM7, MGO, FT4, TSH, HEP3B ####[facility] [place] [id number] [place], [place] [id number] [place] [address] Est GFR,non 34 mL/min/1.73sqM Low >60 [facility] Comment on above: Performed By: #### H EMOGC, RETIC, CHM7, MGO, FT4, TSH, HEP3B ####[facility] [place], [place] [id number] [address] [place] [address] Glucose mass conc 112 mg/dL High 70-99 [facility] Comment on above: Performed By: #### H EMOGC, RETIC, CHM7, MGO, FT4, TSH, HEP3B ####[facility] [place], [place] [id number] [address] [place] [address] Osmolality 311 mOsm/kg High 278-305 [facility] Comment on above: Performed By: #### H EMOGC, RETIC, CHM7, MGO, FT4, TSH, HEP3B ####[facility] [place], [place] [id number] [address] [place] [address] Potassium molar conc 4.2 mmol/L Normal 3.5-5.0 [facility] Comment on above: Performed By: #### H EMOGC, RETIC, CHM7, MGO, FT4, TSH, HEP3B ####[facility] [place], [place] [id number] [address] [place] [address] Sodium molar conc 141 mmol/L Normal 133-143 [facility] Comment on above: Performed By: #### H EMOGC, RETIC, CHM7, MGO, FT4, TSH, HEP3B ####[facility] [place] [address]DzymwpKettering Health Dayton[address] [place] [address] Urea nitrogen mass conc 54 mg/dL High 7-22 [facility] Comment on above: Performed By: #### H EMOGC, RETIC, CHM7, MGO, FT4, TSH, HEP3B ####[facility] [place], [place] [id number] [address] [place] [address] Urea nitrogen/Creatinine mass ratio 27 mg/mg Normal [facility] Comment on above: Performed By: #### H EMOGC, RETIC, CHM7, MGO, FT4, TSH, HEP3B ####[facility] [place], [place] [id number] [address] [place] [address] HEMOGRAM (CBC and Platelet)o n 01-27-2018 Hematocrit Auto Volume Fraction (Bld) 25.5 % Low 40.1-51.0 [facility] Comment on above: Performed By: #### H EMOGC, RETIC, CHM7, MGO, FT4, TSH, HEP3B ####[facility] [place], [place] [id number] [address] [place] [address] Hemoglobin mass conc (Bld) 7.8 g/dL Low 13.7-17.5 [facility] Comment on above: Performed By: #### H EMOGC, RETIC, CHM7, MGO, FT4, TSH, HEP3B ####[facility] [place], [place] [id number] [address] [place] [address] MCV Auto Entitic volume (RBC) 91.1 fL Normal 79.0-92.2 [facility] Comment on above: Performed By: #### H EMOGC, RETIC, CHM7, MGO, FT4, TSH, HEP3B ####[facility] [place] [address], [address] [place] [address] Mean Cell Hgb 27.9 pg Normal 25.7-32.2 [facility] Comment on above: Performed By: #### H EMOGC, RETIC, CHM7, MGO, FT4, TSH, HEP3B ####[facility] [place], [place] [id number] [address] [place] [address] Mean Cell Hgb Conc 30.6 g/dL Critically low 32.3-36.5 [facility] Comment on above: Performed By: #### H EMOGC, RETIC, CHM7, MGO, FT4, TSH, HEP3B ####[facility] [place] [address], [address] [place] [address] Nucleated RBC #/vol (Bld) 0.0 /100 WBC Normal 0.0-0.2 [facility] Comment on above: Performed By: #### H EMOGC, RETIC, CHM7, MGO, FT4, TSH, HEP3B ####[facility] [place], [place] [id number] [address] [place] [address] Platelet mean volume Auto Entitic volume (Bld) 9.6 fL Normal 9.4-12.4 [facility] Comment on above: Performed By: #### H EMOGC, RETIC, CHM7, MGO, FT4, TSH, HEP3B ####[facility] [place], [place] [id number] [address] [place] [address] Platelets Auto #/vol (Bld) 114 10*3/uL Low 163-337 [facility] Comment on above: Performed By: #### H EMOGC, RETIC, CHM7, MGO, FT4, TSH, HEP3B ####[facility] [place], [place] [id number] [address] [place] [address] RBC Auto #/vol (Bld) 2.80 10*6/uL Low 4.63-6.08 [facility] Comment on above: Performed By: #### H EMOGC, RETIC, CHM7, MGO, FT4, TSH, HEP3B ####[facility] [place], [place] [id number] [address] [place] [address] RBC Auto #/vol (Bld) 22.6 % High 11.6-14.4 [facility] Comment on above: Performed By: #### H EMOGC, RETIC, CHM7, MGO, FT4, TSH, HEP3B ####[facility] [place], [place] [id number] [address] [place] [address] WBC Auto #/vol (Bld) 11.87 10*3/uL High 4.23-9.07 [facility] Comment on above: Performed By: #### H EMOGC, RETIC, CHM7, MGO, FT4, TSH, HEP3B ####[facility] [place], [place] [id number] [address] [place] [address] Hematocrit Auto Volume Fraction (Bld) 24.6 % Low 40.1-51.0 [facility] Comment on above: Performed By: #### H EMOGC, RETIC, CHM7, MGO, FT4, TSH, HEP3B ####[facility] [place], [place] [id number] [address] [place] [address] Hemoglobin mass conc (Bld) 7.4 g/dL Low 13.7-17.5 [facility] Comment on above: Performed By: #### H EMOGC, RETIC, CHM7, MGO, FT4, TSH, HEP3B ####[facility] [place], [place] [id number] [place] [address] MCV Auto Entitic volume (RBC) 90.8 fL Normal 79.0-92.2 [facility] Comment on above: Performed By: #### H EMOGC, RETIC, CHM7, MGO, FT4, TSH, HEP3B ####[facility] [place], [place] [id number] [address] [place] [address] Mean Cell Hgb 27.3 pg Normal 25.7-32.2 [facility] Comment on above: Performed By: #### H EMOGC, RETIC, CHM7, MGO, FT4, TSH, HEP3B ####[facility] [place] [address], [address] [place] [address] Mean Cell Hgb Conc 30.1 g/dL Critically low 32.3-36.5 [facility] Comment on above: Performed By: #### H EMOGC, RETIC, CHM7, MGO, FT4, TSH, HEP3B ####[facility] [place] [address], [address] [place] [address] Nucleated RBC #/vol (Bld) 0.0 /100 WBC Normal 0.0-0.2 [facility] Comment on above: Performed By: #### H EMOGC, RETIC, CHM7, MGO, FT4, TSH, HEP3B ####[facility] [place], [place] [id number] [address] [place] [address] Platelet mean volume Auto Entitic volume (Bld) 10.0 fL Normal 9.4-12.4 [facility] Comment on above: Performed By: #### H EMOGC, RETIC, CHM7, MGO, FT4, TSH, HEP3B ####[facility] [place] [address] Platelets Auto #/vol (Bld) 113 10*3/uL Low 163-337 [facility] Comment on above: Performed By: #### H EMOGC, RETIC, CHM7, MGO, FT4, TSH, HEP3B ####[facility] [place], [place] [id number] [address] [place] [address] RBC Auto #/vol (Bld) 22.5 % High 11.6-14.4 [facility] Comment on above: Performed By: #### H EMOGC, RETIC, CHM7, MGO, FT4, TSH, HEP3B ####[facility] [place], [place] [id number] [place] [address] RBC Auto #/vol (Bld) 2.71 10*6/uL Low 4.63-6.08 [facility] Comment on above: Performed By: #### H EMOGC, RETIC, CHM7, MGO, FT4, TSH, HEP3B ####[facility] [place] [address], [address] [place] [address] WBC Auto #/vol (Bld) 8.61 10*3/uL Normal 4.23-9.07 [facility] Comment on above: Performed By: #### H EMOGC, RETIC, CHM7, MGO, FT4, TSH, HEP3B ####[facility] [place], [place] [id number] [place] [address] PTTon 01-27-2018 aPTT Coag time (Bld) 59.5 s High 24.0-34.3 [facility] Comment on above: Performed By: #### H EMOGC, RETIC, CHM7, MGO, FT4, TSH, HEP3B ####[facility] [place], [place] [id number] [address] [place] [address] aPTT Coag time (Bld) 25.7 s Normal 24.0-34.3 [facility] Comment on above: Performed By: #### H EMOGC, RETIC, CHM7, MGO, FT4, TSH, HEP3B ####[facility] [place], [place] [id number] [place] [address] ANCA Initial Screenon 2017 Myeloperoxidase Antibodies Negative Normal Negative [facility] Comment on above: Performed By: #### C BCDFC, CHM7, HFP, IPB, MGO, PTPTT ####[facility] [place], [place] [id number] [address] [place] [address] Protein mass conc Negative Normal Negative [facility] Comment on above: Performed By: #### C BCDFC, CHM7, HFP, IPB, MGO, PTPTT ####[facility] [place], [place] [id number] [place] [address] CHEM 7on 01-26-2018 Anion gap 3 molar conc 12 mmol/L Normal - [facility] Comment on above: Performed By: #### H EMOGC, RETIC, CHM7, MGO, FT4, TSH, HEP3B ####[facility] [place], [place] [id number] [place] [address] Chloride molar conc 110 mmol/L High 98-108 [facility] Comment on above: Performed By: #### H EMOGC, RETIC, CHM7, MGO, FT4, TSH, HEP3B ####[facility] [place], [place] [id number] [place] [address] CO2 molar conc 21 mmol/L Low 22-30 [facility] Comment on above: Performed By: #### H HAIGC, RETIC, CHM7, MGO, FT4, TSH, HEP3B ####[facility] [place], [place] [id number] [place] [address] Creatinine mass conc 1.98 mg/dL High 0.70-1.30 [facility] Comment on above: Performed By: #### H HAIGC, RETIC, CHM7, MGO, FT4, TSH, HEP3B ####[facility] [place], [place] [id number] [place] [address] Est GFR, 41 mL/min/1.73sqM Low >60 [facility] Comment on above: Performed By: #### H EMOGC, RETIC, CHM7, MGO, FT4, TSH, HEP3B ####[facility] [place], [place] [id number] [place] [address] Est GFR,non 34 mL/min/1.73sqM Low >60 [facility] Comment on above: Performed By: #### H EMOGC, RETIC, CHM7, MGO, FT4, TSH, HEP3B ####[facility] [place], [place] [id number] [place] [address] Glucose mass conc 140 mg/dL High 70-99 [facility] Comment on above: Performed By: #### H EMOGC, RETIC, CHM7, MGO, FT4, TSH, HEP3B ####[facility] [place], [place] [id number] [place] [address] Osmolality 308 mOsm/kg High 278-305 [facility] Comment on above: Performed By: #### H EMOGC, RETIC, CHM7, MGO, FT4, TSH, HEP3B ####[facility] [place], [place] [id number] [place] [address] Potassium molar conc 4.3 mmol/L Normal 3.5-5.0 [facility] Comment on above: Performed By: #### H EMOGC, RETIC, CHM7, MGO, FT4, TSH, HEP3B ####[facility] [place], [place] [id number] [place] [address] Sodium molar conc 139 mmol/L Normal 133-143 [facility] Comment on above: Performed By: #### H EMOGC, RETIC, CHM7, MGO, FT4, TSH, HEP3B ####[facility] [place], [place] [id number] [place] [address] Urea nitrogen mass conc 51 mg/dL High 7-22 [facility] Comment on above: Performed By: #### H EMOGC, RETIC, CHM7, MGO, FT4, TSH, HEP3B ####[facility] [place], [place] [id number] [place] [address] Urea nitrogen/Creatinine mass ratio 26 mg/mg Normal [facility] Comment on above: Performed By: #### H EMOGC, RETIC, CHM7, MGO, FT4, TSH, HEP3B ####[facility] [place], [place] [id number] [place] [address] HEMOGRAM (CBC and Platelet)o n 01-26-2018 Hematocrit Auto Volume Fraction (Bld) 24.9 % Low 40.1-51.0 [facility] Comment on above: Performed By: #### H EMOGC, RETIC, CHM7, MGO, FT4, TSH, HEP3B ####[facility] [place], [place] [id number] [place] [address] Hemoglobin mass conc (Bld) 8.0 g/dL Low 13.7-17.5 [facility] Comment on above: Performed By: #### H EMOGC, RETIC, CHM7, MGO, FT4, TSH, HEP3B ####[facility] [place], [place] [id number] [place] [address] MCV Auto Entitic volume (RBC) 89.9 fL Normal 79.0-92.2 [facility] Comment on above: Performed By: #### H EMOGC, RETIC, CHM7, MGO, FT4, TSH, HEP3B ####[facility] [place], [place] [id number] [place] [address] Mean Cell Hgb 28.9 pg Normal 25.7-32.2 [facility] Comment on above: Performed By: #### H EMOGC, RETIC, CHM7, MGO, FT4, TSH, HEP3B ####[facility] [place], [place] [id number] [place] [address] Mean Cell Hgb Conc 32.1 g/dL Low 32.3-36.5 [facility] Comment on above: Performed By: #### H EMOGC, RETIC, CHM7, MGO, FT4, TSH, HEP3B ####[facility] [place] [address] Nucleated RBC #/vol (Bld) 0.0 /100 WBC Normal 0.0-0.2 [facility] Comment on above: Performed By: #### H EMOGC, RETIC, CHM7, MGO, FT4, TSH, HEP3B ####[facility] [place], [place] [id number] [place] [address] Platelet mean volume Auto Entitic volume (Bld) 9.8 fL Normal 9.4-12.4 [facility] Comment on above: Performed By: #### H EMOGC, RETIC, CHM7, MGO, FT4, TSH, HEP3B ####[facility] [place], [place] [id number] [place] [address] Platelets Auto #/vol (Bld) 103 10*3/uL Low 163-337 [facility] Comment on above: Performed By: #### H EMOGC, RETIC, CHM7, MGO, FT4, TSH, HEP3B ####[facility] [place], [place] [id number] [place] [address] RBC Auto #/vol (Bld) 2.77 10*6/uL Low 4.63-6.08 [facility] Comment on above: Performed By: #### H EMOGC, RETIC, CHM7, MGO, FT4, TSH, HEP3B ####[facility] [place], [place] [id number] [place] [address] RBC Auto #/vol (Bld) 21.6 % High 11.6-14.4 [facility] Comment on above: Performed By: #### H EMOGC, RETIC, CHM7, MGO, FT4, TSH, HEP3B ####[facility] [place], [place] [id number] [address] [place] [address] WBC Auto #/vol (Bld) 9.47 10*3/uL High 4.23-9.07 [facility] Comment on above: Performed By: #### H HAIGC, RETIC, CHM7, MGO, FT4, TSH, HEP3B ####[facility] [place], [place] [id number] [address] [place] [address] HGB & HCTon 01-26-2018 Hematocrit Auto Volume Fraction (Bld) 25.8 % Low 40.1-51.0 [facility] Comment on above: Performed By: #### H HAIGC, RETIC, CHM7, MGO, FT4, TSH, HEP3B ####[facility] [place], [place] [id number] [address] [place] [address] Hemoglobin mass conc (Bld) 8.1 g/dL Low 13.7-17.5 [facility] Comment on above: Performed By: #### H EMOGC, RETIC, CHM7, MGO, FT4, TSH, HEP3B ####[facility] [place] [address] [place] [address] PT/INR BATTERYon 01-26-2018 INR Coag RelTime (PPP) 1.3 {INR} High 0.9-1.1 [facility] Comment on above: Performed By: #### H EMOGC, RETIC, CHM7, MGO, FT4, TSH, HEP3B ####[facility] [place], [place] [id number] [address] [place] [address] Prothrombin time (PT) Coag time (PPP) 15.7 s High 11.9-14.2 [facility] Comment on above: Performed By: #### H EMOGC, RETIC, CHM7, MGO, FT4, TSH, HEP3B ####[facility] [place], [place] [id number] [address] [place] [address] PTTon 01-26-2018 aPTT Coag time (Bld) 111.5 s Critically high 24.0-34.3 [facility] Comment on above: Performed By: #### H EMOGC, RETIC, CHM7, MGO, FT4, TSH, HEP3B ####[facility] [place], [place] [id number] [address] [place] [address] aPTT Coag time (Bld) 94.0 s Critically high 24.0-34.3 [facility] Comment on above: Performed By: #### H EMOGC, RETIC, CHM7, MGO, FT4, TSH, HEP3B ####[place] [address] [place] [address] Surgical Pathologyon 018 Surgical Pathology Surgical Pathology ReportPatient Name: SOWMYA OLIVARES Rec #: [id number] Physician: MARYURI LOGAN--- Clinical History ---The patient is a 62-year-old male with acute kidney injury andbilateral lower extremity vasculitic rash. Serum creatinine is between 1.8to 2.0 mg/dL with weakly positive cryoglobulin test, mildly elevatedrheumatoid factor of 143 IU/mL. All other serologies, including LAVON, dsDNA,ANCA, MPO, PR3, hepatitis B, hepatitis C, and HIV, are negative. Thepatient has very low complements (C3 45 and C4 <8), haptoglobin <30, serumfree kappa/lambda ratio 1.8 with kappa light chains 81 mg/L and lambdalight chains 44 mg/L. 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 Also bone marrowbiopsy was reportedly negative at the outside hospital. The patient has ahistory of bilateral pulmonary embolism and is chronically on Eliquis.Bbuyzg-mgsh-bqc r urine protein is 0.8 grams, but serum albumin is 2.6 g/dL(low). LDH 262. Urinalysis does show >20 RBCs/HPF. On imaging studies,ground-glass opacities in the lung are noted. The patient also has ahistory of hypertension and hypothyroidism. He reportedly lost 40 pounds ofweight recently. The rash improved with steroids and the rheumatoid factortiter also reduced.---Final Pathologic Diagnosis---A. 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 Note: The biopsy specimen is small and was entirely submitted forimmunofluorescence staining and electron microscopic examination.Therefore, light microscopic evaluation was performed on hematoxylin andeosin stained frozen section. Considering the clinical history, this issuggestive of a mild cryoglobulinemic glomerulonephritis, worsened by fewocclusive red blood cell casts following anticoagulant therapy.Interstitial fibrosis and tubular atrophy appears to be mild in the smallavailable renal cortex. However the underlying etiology is difficult todetermine since the patient reportedly tested negative for Hepatitis B,Hepatitis C and was not confirmed to have a detectable monoclonal spike inthe serum either. Possibilities include deep seated infection such asendocarditis that can cause mixed cryoglobulins and mildly positiverheumatoid factor as well as vasculitic rash which this patient had.Malignancy and paraneoplastic syndrome is another possibility especiallywith recent history of weight loss. Presence of small plasma cell or B-cellclone without overt lymphoma is also possible. With negative autoimmuneserologies, underlying systemic lupus erythematosus is unlikely. The glomeruli show mild segmental intracapillary hypercellularity.Inters titial inflammation is also quite mild. Although one glomerulus atthe edge of the tissue is suspicious for a necrotizing lesion; this cannotbe diagnosed with certainty because it may just be an edge artifact. Onimmunofluorescence staining, mesangial and segmental capillary wallstaining is noted, mainly for IgM along with C1q, C3, kappa and lambdalight chains. Staining for IgG is mild, but subclass staining reveals [id number]. IgA staining is absent. Monoclonality is difficult to discern.Mixed cryoglobulins are more likely. Ultrastructural examination showssmall scattered paramesangial electron dense immune-type deposits. Definitemicrotubular substructure is not seen, but there is a hint of substructure,suggesting that these may be forming small cryoglobulin-like deposits.However, the patient is negative for hepatitis B and hepatitis C. Anotherpossibility includes proliferative glomerulonephritis with monoclonal IgGdeposits (PGNMIGD). Because of the presence of two heavy chains (IgG3 andIgM), there may be both kappa and lambda light chain deposition in theglomeruli, making it difficult to unmask the monoclonality of the deposits.But in PGNMIGD, the immune-deposits tend to be much larger and numerous. The patient should be investigated for underlying occult malignancy, B-celllymphoma, bacterial infection such as endocarditis or abscess, and alsoautoimmune disease. Biopsy findings were discussed with Dr. Rito Grayson and Dr. Maryuri Logan on01/27/2018. ---Comment---All controls show appropriate reactivity.All immunohistochemistry, in situ hybridization, immunofluorescence, andhistochemical tests were developed by and are performed at the [facility], [address] [place] [address]. All tests reported here, except for immunofluorescence for IgG, IgA,IgM, C3, C1q, fibrinogen, kappa, and lambda have not been cleared by orapproved by the [place] Food and Drug Administration (FDA). The laboratory isregulated under CLIA as qualified to perform high-complexity testing. Thetests are used for clinical purposes. They should not be regarded asinvestigational or for research.[email or web address]:Electronicall y Signed ByRosalia Jordan MD01/30/2018 19:39:30Professional Interpretation performed at location: [address] [place] [address]---[id number] C:---Since the biopsy contained a single small core of renal cortex, the tissuewas entirely submitted for frozen section and electron microscopy. Thehematoxylin and eosin-stained frozen section contains renal cortex with upto eight glomeruli per section. One glomerulus is globally sclerosed. Theremaining glomeruli show mild focal segmental intracapillaryhypercell ularity. One glomerulus at the edge of the tissue appearssuspicious for a necrotizing lesion, but it cannot be determined withcertainty because it is present at the edge of the tissue and may just mas artifact. There is, however, ATN, and tubules do appear to contain redblood cell casts.DIRECT IMMUNOFLUORESCENCEFroze n sections contain renal cortex with up to eight glomeruli persection. Immunofluorescence with antibodies to albumin, IgG, IgA, IgM, C1q,C3, fibrinogen, and both kappa and lambda light chains is performed, andthe results are as follows:Albumin: Background staining.Ig+ focal scant segmental granular mesangial.IgA: Trace focal segmental granular mesangial, 2+ arteriolar hyaline, 2+tubular casts.IgM: 2+ diffuse granular mesangial and segmental glomerular capillary wall.C1q: 2+ diffuse segmental granular mesangial and glomerular capillary wall.C3: 3+ diffuse segmental granular mesangial and segmentally along thecapillary wall.Fibrinogen: 1+ nonspecific tubulointerstitial staining. [place] light chain: 2+ diffuse granular mesangial and segmental glomerularcapillary wall, 1+ tubular protein resorption droplets. Lambda light chain: 2+ diffuse granular mesangial and glomerular capillarywall, 1+ tubular protein resorption droplets.Direct immunofluorescencewith antibodies to the IgG subclasses wasperformed and reveals:IgG1:1+ scant granular glomerular.IgG2:1+ scant granular glomerular.IgG3: 2+ diffuse segmental granular glomerular.IgG4:Negativ e. (Grading of the staining intensity is performed on a semiquantitative scalefrom 0 to 3+)ELECTRON MICROSCOPYMethylene blue/basic fuchsin stained semithin sections contain renal cortexwith three glomeruli. Two glomeruli are examined under the electronmicroscope.Ultr astructurally, few scattered small but discrete paramesangial electron-dense immune-type deposits are identified. Obviousmicrotubular substructure is not seen in these small deposits. Theglomerular basement membrane (GBM) appears to be of normal thickness andtexture. Podocyte foot process effacement is moderate.No endothelialtubuloreticu lar inclusions are identified.---SPECIMEN( S) RECEIVED:---SBXA: Kidney, [place], BX---GROSS DESCRIPTION:---The specimen is received in one container without fixative, labeled withthe patient's name and left quinault kidney. The specimen is a quinault kidney biopsy and consists of one piece of 0.1 cm porras-pink, cylindricalrenal core 0.7 cm in aggregate length. Also present is a 0.2 x 0.1 x 0.1 cmaggregate of yellow-porras soft tissue. One 0.2 cm piece in total length issubmitted for electron microscopy, and one 0.5 cm piece in total length issubmitted for immunofluorescence. TE 1 Summary of Sections: A2 several pieces, H&E onlyGross description by: Mary Jane Maria Normal [facility] Comment on above: Performed By: #### C BCDFC, CHM7, HFP, IPB, MGO, PTPTT ####[place] [id number] [place] [address] [place] [address] Type and Renetta 01-26-2018 Type and Cross Negative Normal [facility] Comment on above: Performed By: #### H EMOGC, RETIC, CHM7, MGO, FT4, TSH, HEP3B ####[place] [address] [place] [address] [place] [address] BLOOD:ROUTINE Ion 01-25-2018 BLOOD:ROUTINE I --- --------SOURCE:BLOOD, PERIPHERAL: Left Hand RESULT:NO GROWTH DAY 5 OF 5 ---------REPORT STATUS:01/25/2018 FINAL Normal [facility] Comment on above: Performed By: #### C BCDFC, CHM7, HFP, IPB, MGO, PTPTT ####[facility] [place], [place] [address] [place], [place] [id number] [place], [place] [address] BLOOD:ROUTINE IIon 8 BLOOD:ROUTINE II --- --------SOURCE:BLOOD, PERIPHERAL: Right Hand RESULT:NO GROWTH DAY 5 OF 5 ---------REPORT STATUS:01/25/2018 FINAL Normal [facility] Comment on above: Performed By: #### C BCDFC, CHM7, HFP, IPB, MGO, PTPTT ####[facility] [place] [id number] [place], [place] [id number] [address] [place] [address] CHEM 7on 01-25-2018 Anion gap 3 molar conc 12 mmol/L Normal 7-17 [facility] Comment on above: Performed By: #### H EMOGC, RETIC, CHM7, MGO, FT4, TSH, HEP3B ####[facility] [place], [place] [id number] [address] [place] [address] Chloride molar conc 111 mmol/L High 98-108 [facility] Comment on above: Performed By: #### H EMOGC, RETIC, CHM7, MGO, FT4, TSH, HEP3B ####[facility] [place], [place] [id number] [address] [place] [address] CO2 molar conc 19 mmol/L Low 22-30 [facility] Comment on above: Performed By: #### H EMOGC, RETIC, CHM7, MGO, FT4, TSH, HEP3B ####[facility] [place], [place] [id number] [address] [place] [address] Creatinine mass conc 2.00 mg/dL High 0.70-1.30 [facility] Comment on above: Performed By: #### H EMOGC, RETIC, CHM7, MGO, FT4, TSH, HEP3B ####[facility] [place], [place] [id number] [address] [place] [address] Est GFR, 41 mL/min/1.73sqM Low >60 [facility] Comment on above: Performed By: #### H EMOGC, RETIC, CHM7, MGO, FT4, TSH, HEP3B ####[facility] [place], [place] [id number] [address] [place] [address] Est GFR,non 34 mL/min/1.73sqM Low >60 [facility] Comment on above: Performed By: #### H EMOGC, RETIC, CHM7, MGO, FT4, TSH, HEP3B ####[facility] [place], [place] [id number] [address] [place] [address] Glucose mass conc 148 mg/dL High 70-99 [facility] Comment on above: Performed By: #### H EMOGC, RETIC, CHM7, MGO, FT4, TSH, HEP3B ####[facility] [place], [place] [id number] [address] [place] [address] Osmolality 306 mOsm/kg High 278-305 [facility] Comment on above: Performed By: #### H EMOGC, RETIC, CHM7, MGO, FT4, TSH, HEP3B ####[facility] [place], [place] [id number] [address] [place] [address] Potassium molar conc 4.1 mmol/L Normal 3.5-5.0 [facility] Comment on above: Performed By: #### H EMOGC, RETIC, CHM7, MGO, FT4, TSH, HEP3B ####[facility] [place], [place] [id number] [address] [place] [address] Sodium molar conc 138 mmol/L Normal 133-143 [facility] Comment on above: Performed By: #### H EMOGC, RETIC, CHM7, MGO, FT4, TSH, HEP3B ####[facility] [place], [place] [id number] [address] [place] [address] Urea nitrogen mass conc 51 mg/dL High 7-22 [facility] Comment on above: Performed By: #### H EMOGC, RETIC, CHM7, MGO, FT4, TSH, HEP3B ####[facility] [place], [place] [id number] [address] [place] [address] Urea nitrogen/Creatinine mass ratio 26 mg/mg Normal [facility] Comment on above: Performed By: #### H EMOGC, RETIC, CHM7, MGO, FT4, TSH, HEP3B ####[facility] [place], [place] [id number] [address] [place] [address] HEMOGRAM (CBC and Platelet)o n 01-25-2018 Hematocrit Auto Volume Fraction (Bld) 25.1 % Low 40.1-51.0 [facility] Comment on above: Performed By: #### H EMOGC, RETIC, CHM7, MGO, FT4, TSH, HEP3B ####[facility] [place], [place] [id number] [address] [place] [address] Hemoglobin mass conc (Bld) 7.8 g/dL Low 13.7-17.5 [facility] Comment on above: Performed By: #### H EMOGC, RETIC, CHM7, MGO, FT4, TSH, HEP3B ####[facility] [place], [place] [id number] [address] [place] [address] MCV Auto Entitic volume (RBC) 89.0 fL Normal 79.0-92.2 [facility] Comment on above: Performed By: #### H EMOGC, RETIC, CHM7, MGO, FT4, TSH, HEP3B ####[facility] [place] [address], [address] [place] [address] Mean Cell Hgb 27.7 pg Normal 25.7-32.2 [facility] Comment on above: Performed By: #### H EMOGC, RETIC, CHM7, MGO, FT4, TSH, HEP3B ####[facility] [place] [address], [address] [place] [address] Mean Cell Hgb Conc 31.1 g/dL Low 32.3-36.5 [facility] Comment on above: Performed By: #### H EMOGC, RETIC, CHM7, MGO, FT4, TSH, HEP3B ####[facility] [place] [address], [address] [place] [address] Nucleated RBC #/vol (Bld) 0.0 /100 WBC Normal 0.0-0.2 [facility] Comment on above: Performed By: #### H EMOGC, RETIC, CHM7, MGO, FT4, TSH, HEP3B ####[facility] [place] [address], [address] [place] [address] Platelet mean volume Auto Entitic volume (Bld) 9.7 fL Normal 9.4-12.4 [facility] Comment on above: Performed By: #### H EMOGC, RETIC, CHM7, MGO, FT4, TSH, HEP3B ####[facility] [place], [place] [id number] [address] [place] [address] Platelets Auto #/vol (Bld) 104 10*3/uL Low 163-337 [facility] Comment on above: Performed By: #### H EMOGC, RETIC, CHM7, MGO, FT4, TSH, HEP3B ####[facility] [place] [id number] [place], [place] [id number] [address] [place] [address] RBC Auto #/vol (Bld) 21.2 % High 11.6-14.4 [facility] Comment on above: Performed By: #### H EMOGC, RETIC, CHM7, MGO, FT4, TSH, HEP3B ####[facility] [place], [place] [id number] [address] [place] [address] RBC Auto #/vol (Bld) 2.82 10*6/uL Low 4.63-6.08 [facility] Comment on above: Performed By: #### H EMOGC, RETIC, CHM7, MGO, FT4, TSH, HEP3B ####[facility] [place], [place] [id number] [address] [place] [address] WBC Auto #/vol (Bld) 9.87 10*3/uL High 4.23-9.07 [facility] Comment on above: Performed By: #### H EMOGC, RETIC, CHM7, MGO, FT4, TSH, HEP3B ####[facility] [place], [place] [id number] [address] [place] [address] PTTon 01-25-2018 aPTT Coag time (Bld) 68.5 s Critically high 24.0-34.3 [facility] Comment on above: Performed By: #### H EMOGC, RETIC, CHM7, MGO, FT4, TSH, HEP3B ####[facility] [place], [place] [id number] [address] [place] [address] aPTT Coag time (Bld) 77.0 s Critically high 24.0-34.3 [facility] Comment on above: Performed By: #### H EMOGC, RETIC, CHM7, MGO, FT4, TSH, HEP3B ####[facility] [place], [place] [id number] [address] [place] [address] aPTT Coag time (Bld) 82.6 s Critically high 24.0-34.3 [facility] Comment on above: Performed By: #### H HAIGC, RETIC, CHM7, MGO, FT4, TSH, HEP3B ####[facility] [place], [place] [id number] [address] [place] [address] aPTT Coag time (Bld) 112.4 s Critically high 24.0-34.3 [facility] Comment on above: Performed By: #### H HAIGC, RETIC, CHM7, MGO, FT4, TSH, HEP3B ####[facility] [place], [place] [id number] [address] [place] [address] CHEM 7on 01-24-2018 Anion gap 3 molar conc 11 mmol/L Normal 7-17 [facility] Comment on above: Performed By: #### H EMOGC, RETIC, CHM7, MGO, FT4, TSH, HEP3B ####[facility] [place], [place] [id number] [address] [place] [address] Chloride molar conc 111 mmol/L High 98-108 [facility] Comment on above: Performed By: #### H EMOGC, RETIC, CHM7, MGO, FT4, TSH, HEP3B ####[facility] [place], [place] [id number] [place] [address] CO2 molar conc 22 mmol/L Normal 22-30 [facility] Comment on above: Performed By: #### H HAIGC, RETIC, CHM7, MGO, FT4, TSH, HEP3B ####[facility] [place], [place] [id number] [address] [place] [address] Creatinine mass conc 1.88 mg/dL High 0.70-1.30 [facility] Comment on above: Performed By: #### H HAIGC, RETIC, CHM7, MGO, FT4, TSH, HEP3B ####[facility] [place], [place] [id number] [place] [address] Est GFR, 44 mL/min/1.73sqM Low >60 [facility] Comment on above: Performed By: #### H HAIGC, RETIC, CHM7, MGO, FT4, TSH, HEP3B ####[facility] [place], [place] [id number] [place] [address] Est GFR,non 36 mL/min/1.73sqM Low >60 [facility] Comment on above: Performed By: #### H EMOGC, RETIC, CHM7, MGO, FT4, TSH, HEP3B ####[facility] [place], [place] [id number] [address] [place] [address] Glucose mass conc 110 mg/dL High 70-99 [facility] Comment on above: Performed By: #### H EMOGC, RETIC, CHM7, MGO, FT4, TSH, HEP3B ####[facility] [place], [place] [id number] [address] [place] [address] Osmolality 308 mOsm/kg High 278-305 [facility] Comment on above: Performed By: #### H EMOGC, RETIC, CHM7, MGO, FT4, TSH, HEP3B ####[facility] [place], [place] [id number] [address] [place] [address] Potassium molar conc 4.0 mmol/L Normal 3.5-5.0 [facility] Comment on above: Performed By: #### H EMOGC, RETIC, CHM7, MGO, FT4, TSH, HEP3B ####[facility] [place], [place] [id number] [address] [place] [address] Sodium molar conc 140 mmol/L Normal 133-143 [facility] Comment on above: Performed By: #### H EMOGC, RETIC, CHM7, MGO, FT4, TSH, HEP3B ####[facility] [place], [place] [id number] [address] [place] [address] Urea nitrogen mass conc 54 mg/dL High 7-22 [facility] Comment on above: Performed By: #### H EMOGC, RETIC, CHM7, MGO, FT4, TSH, HEP3B ####[facility] [place], [place] [id number] [address] [place] [address] Urea nitrogen/Creatinine mass ratio 29 mg/mg Normal [facility] Comment on above: Performed By: #### H EMOGC, RETIC, CHM7, MGO, FT4, TSH, HEP3B ####[facility] [place], [place] [id number] [address] [place] [address] HEMOGRAM (CBC and Platelet)o n 01-24-2018 Hematocrit Auto Volume Fraction (Bld) 25.2 % Low 40.1-51.0 [facility] Comment on above: Performed By: #### H EMOGC, RETIC, CHM7, MGO, FT4, TSH, HEP3B ####[facility] [place], [place] [id number] [address] [place] [address] Hemoglobin mass conc (Bld) 8.0 g/dL Low 13.7-17.5 [facility] Comment on above: Performed By: #### H EMOGC, RETIC, CHM7, MGO, FT4, TSH, HEP3B ####[facility] [place], [place] [id number] [address] [place] [address] MCV Auto Entitic volume (RBC) 89.0 fL Normal 79.0-92.2 [facility] Comment on above: Performed By: #### H EMOGC, RETIC, CHM7, MGO, FT4, TSH, HEP3B ####[facility] [place], [place] [id number] [address] [place] [address] Mean Cell Hgb 28.3 pg Normal 25.7-32.2 [facility] Comment on above: Performed By: #### H EMOGC, RETIC, CHM7, MGO, FT4, TSH, HEP3B ####[facility] [place], [place] [id number] [address] [place] [address] Mean Cell Hgb Conc 31.7 g/dL Low 32.3-36.5 [facility] Comment on above: Performed By: #### H EMOGC, RETIC, CHM7, MGO, FT4, TSH, HEP3B ####[facility] [place], [place] [id number] [place] [address] Nucleated RBC #/vol (Bld) 0.0 /100 WBC Normal 0.0-0.2 [facility] Comment on above: Performed By: #### H EMOGC, RETIC, CHM7, MGO, FT4, TSH, HEP3B ####[facility] [place], [place] [id number] [place] [address] Platelet mean volume Auto Entitic volume (Bld) 9.4 fL Normal 9.4-12.4 [facility] Comment on above: Performed By: #### H HAIGC, RETIC, CHM7, MGO, FT4, TSH, HEP3B ####[facility] [place], [place] [id number] [address] [place] [address] Platelets Auto #/vol (Bld) 100 10*3/uL Low 163-337 [facility] Comment on above: Performed By: #### H HAIGC, RETIC, CHM7, MGO, FT4, TSH, HEP3B ####[facility] [place], [place] [id number] [place] [address] RBC Auto #/vol (Bld) 20.6 % High 11.6-14.4 [facility] Comment on above: Performed By: #### H EMOGC, RETIC, CHM7, MGO, FT4, TSH, HEP3B ####[facility] [place], [place] [id number] [place] [address] RBC Auto #/vol (Bld) 2.83 10*6/uL Low 4.63-6.08 [facility] Comment on above: Performed By: #### H EMOGC, RETIC, CHM7, MGO, FT4, TSH, HEP3B ####[facility] [place], [place] [id number] [place] [address] WBC Auto #/vol (Bld) 11.51 10*3/uL High 4.23-9.07 [facility] Comment on above: Performed By: #### H EMOGC, RETIC, CHM7, MGO, FT4, TSH, HEP3B ####[facility] [place], [place] [id number] [place] [address] HEPATIC FUNCTION PANELon Albumin mass conc 2.6 g/dL Low 3.5-5.0 [facility] Comment on above: Performed By: #### H EMOGC, RETIC, CHM7, MGO, FT4, TSH, HEP3B ####[facility] [place], [place] [id number] [place] [address] ALP enzyme act/vol 35 U/L Normal 32-126 [facility] Comment on above: Performed By: #### H EMOGC, RETIC, CHM7, MGO, FT4, TSH, HEP3B ####[facility] [place], [place] [id number] [place] [address] ALT enzyme act/vol 17 U/L Normal 10-52 [facility] Comment on above: Performed By: #### H EMOGC, RETIC, CHM7, MGO, FT4, TSH, HEP3B ####[facility] [place], [place] [id number] [place] [address] AST enzyme act/vol 10 U/L Low 14-40 [facility] Comment on above: Performed By: #### H EMOGC, RETIC, CHM7, MGO, FT4, TSH, HEP3B ####[facility] [place] [address], [address] [place] [address] Bilirubin mass conc 0.8 mg/dL Normal <1.5 [facility] Comment on above: Performed By: #### H EMOGC, RETIC, CHM7, MGO, FT4, TSH, HEP3B ####[facility] [place] [address], [address] [place] [address] Bilirubin.direct mass conc 0.3 mg/dL High <0.3 [facility] Comment on above: Performed By: #### H EMOGC, RETIC, CHM7, MGO, FT4, TSH, HEP3B ####[facility] [place], [place] [id number] [address] [place] [address] Protein mass conc 5.5 g/dL Low 6.4-8.3 [facility] Comment on above: Performed By: #### H EMOGC, RETIC, CHM7, MGO, FT4, TSH, HEP3B ####[facility] [place], [place] [id number] [address] [place] [address] Lupus Anticoagulant Workupon 01-24-2018 Interpreted by: Dr. Hiro Ramírez [facility] Comment on above: Performed By: #### C BCDFC, CHM7, HFP, IPB, MGO, PTPTT ####[facility] [place], [place] [id number] [address] [place] [address] LUPUS INTERPRETATION Coagulation assays for the presence of a Lupus Anticoagulant (LA) are NEGATIVE at this time. Normal [facility] Comment on above: Performed By: #### C BCDFC, CHM7, HFP, IPB, MGO, PTPTT ####[facility] [place], [place] [address]LssycwKettering Health Dayton[address] [place] [address] MRI CARDIAC WITHOUT CONTRAST W/VELOCITY FLOW [facility] 01-24-2018 MRI CARDIAC WITHOUT CONTRAST W/VELOCITY FLOW [facility] CMR Report Name: SOWMYA OLIVARES : 1955 Scan Date: 2018-01-24 13:21:33 Signed by Debby Bryan ([id number]) 18:00:39.SUMMARY 62 y/o M w/ MVP, MR, PE, HTN, MGUS, hypothyroidism and cryoglobulinemia. Non-contrast CMR requested toevaluate for LV volumes/measurements and MR severity.NON-CONTRAST CARDIAC MRI1. Mildly dilated left ventricle (LVEDVi 124 ml/m^2) with normal wall thickness (1.1 cm), mass (LV massindex 81 g/m^2) and systolic function. Calculated LVEF 67%. Prominent endocardial trabeculations meetingleft ventricular non-compaction imaging criteria (NC:C = 2.6). 2. Diffusely elevated T2 signal suggesting myocardial inflammation/edema. 3. Programming Manager mitral valve leaflet prolapse (P2 scallop) with severe, anteriorly directed mitral regurgitation(RV 92 ml, RF 51%). Mild TR. On velocity encoded cine imaging the peak aortic valve velocity is 0.9 m/s.4. Normal right ventricular size and systolic function.5. Severe LA enlargement. Mild RA enlargement. 6. Increased hepatic iron content by T2* imaging (T2* 8.8 ms, HIC 3.2 mg/g dry weight; normal < 1.5). Noevidence of cardiac iron overload. 7. Small pericardial effusion. 8. Small bilateral pleural effusions.9. Bilateral pulmonary airspace disease.THORACIC MRA1. Mildly dilated and tortuous appearing thoracic aorta. 2. Left sided aortic arch with normal branching pattern of the brachiocephalic vessels.3. The proximal coronary arteries follow a normal course. No evidence for anomalous coronary arteries.4. Maximal aortic diameter is 4.4 cm at the level of the sinuses of Valsalva, 3.3 cm at the STJ, 3.7 cm atthe ascending aorta (at the level of the MPA), 3.7 cm at the arch (proximal to left subclavin), 3.3 cm atthe descending aorta (at the level of the MPA) and 3.0 cm at the level of the diaphragm.5. Widely patent celiac trunk, SMA and bilateral renal arteries.CRITICAL RESULT: No STUDY QUALITY: Excellent Posterior leaflet prolapse (P2) with severe MR, mild LV dilatation and preserved systolic function.Prominent endocardial trabeculations meeting left ventricular non-compaction imaging criteria. There isdiffuse myocardial edema/inflammation which may suggest an underlying infiltrative process. However, due tolack of contrast (patient refused), this could not be ascertained. Increased hepatic iron content. Midlydilated thoracic aorta with maximal diameter at the root of 4.4 cm.SCAN INFO GENERAL SETUP DATE OF EVENT: 2018-01-24 00:00:00 TYPE: Clinical INPATIENT: Yes CLINICAL REGISTRY: Yes REFERRING PHYSICIAN: 1) BRENDAN MALDONADO ATTENDING PHYSICIAN: Debby Bryan MD FELLOW: Beatrice Field TECHNOLOGIST: Paulino ORO (Megha) (MR) NURSE: Lucy Ibarra VITALS HEIGHT: 71 in HEIGHT: 180.34 cm WEIGHT: 211 lbs WEIGHT: 95.71 kgs BSA: 2.16 m^2 VITALS SYSTOLIC BP: 109 mmHg DIASTOLIC BP: 75 mmHg BASELINE HR: 80 BPM INDICATION(S) FOR SCAN REASON(S) FOR SCAN: Other... OTHER, DESCRIBE:: Nonrheumatic mitral valve disorders; h/o mitral valve prolapse, now with posterior flail leaflet and likelysevere MR. Eval MR regurgitant fraction and LV volumes.BILLING APPROPRIA TENESS OF ORDER: Appropriate BILLING Patient Account [id number] CPT Codes 19641, [ , ]53087, [ , ]08061 ICD10 Codes I42.9, [ , ]I71.2CORE EXAM MEASUREME NTS VOLUMETRIC ANALYSIS . --------. LV Reference RV Reference +------+--------+----- --+ +----+-- ---------+ EDV ml 267 (109-191) ml/m^2 123.6 (60-95) ESV ml 87 (27-72) ml/m^2 40.3 (14-36) CO MASS g 174 (107-183) g/m^2 80.6 (57-90) SV ml 180 (73-129) ml/m^2 83.3 (40-64) EF % 67.42 (58-76) '------+--------+----- --+ +----+-- ---------' LV/RV DIMENSIONS LV DILCIA: 6.4 cm LV ESD: 3 cm RV DILCIA: 4.9 cm RV ESD: 3.4 cm LA (SYSTOLE) / RA DIMENSIONS LA AREA - 2 CHAMBER: 42 cm^2 LA LENGTH - 2 CHAMBER: 7.1 cm LA AREA - 4 CHAMBER: 48 cm^2 LA LENGTH - 4 CHAMBER: 6.8 cm LA VOLUME: 252 ml RA AREA - 4 CHAMBER: 30 cm^2 WALL THICKNESS WALL THICKNESS - ANTEROSEPTAL: 1.1 cm EXTRACELLULAR VOLUME MEASUREMENT PRE-CONTRAST T1 MYOCARDIUM: 1008 msec PRE-CONTRAST T1 LV CAVITY: 1740 msecVASCULAR Normal [facility] PTTon 01-24-2018 aPTT Coag time (Bld) 86.0 s Critically high 24.0-34.3 [facility] Comment on above: Performed By: #### H EMOGC, RETIC, CHM7, MGO, FT4, TSH, HEP3B ####[facility] [place], [place] [id number] [address] [place] [address] aPTT Coag time (Bld) 50.5 s High 24.0-34.3 [facility] Comment on above: Performed By: #### H HAIGC, RETIC, CHM7, MGO, FT4, TSH, HEP3B ####[facility] [place], [place] [id number] [address] [place] [address] aPTT Coag time (Bld) 71.2 s Critically high 24.0-34.3 [facility] Comment on above: Performed By: #### H EMOGC, RETIC, CHM7, MGO, FT4, TSH, HEP3B ####[facility] [place], [place] [id number] [address] [place] [address] aPTT Coag time (Bld) 118.6 s Critically high 24.0-34.3 [facility] Comment on above: Performed By: #### H EMOGC, RETIC, CHM7, MGO, FT4, TSH, HEP3B ####[facility] [place] [address], [place] [address]VpacrdKettering Health Dayton[address] [place] [address] Quantiferon TB Gold in Tubeo n 01-24-2018 M. Tuberculosis by Quantiferon Negative Normal Negative [facility] Comment on above: Performed By: #### H EMOGC, RETIC, CHM7, MGO, FT4, TSH, HEP3B ####[facility] [place] [address], [place] [address]SbklgxKettering Health Dayton[address] [place] [address] M. tuberculosis Interferon Nii 0.01 IU/mL Normal [facility] Comment on above: Result Comment: The M. Tuberculosis antigen levels cannot be correlated to stage or degree of infection, response to therapy or likelihood for progression to active disease. Results from QuantiFERON TB Gold must be used in conjunction with individual epidemiological history, current medical status, and results of other diagnostic evaluation. 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 ADDITIONAL INFORMATION This test was developed and its performance characteristicsdetermined by [facility] in a manner consistent with CLIArequirements. This test has not been cleared or approved bythe U.S. Food and Drug Administration.Test performed by [facility] Dpt of Lab Med & PathologyStreet SW Performed By: #### C BCDFC, CHM7, HFP, IPB, MGO, PTPTT ####[facility] [place] [address], [id number] [place], [place] [address] BETA 2 GLYCOPROTEIN 1 Ab, Ig G, IgM, DOMAIN 1on 01-23-2018 Beta 2 Glycoprotein 1 Ab, IgG <10.0 Normal 0.0-20.0 [facility] Comment on above: Performed By: #### C BCDFC, CHM7, HFP, IPB, MGO, PTPTT ####[facility] [facility], [place] [address]FqdcztKettering Health Dayton[address] [place], [place] [address] Beta 2 Glycoprotein 1 Ab, IgM <10.0 Normal 0.0-20.0 [facility] Comment on above: Performed By: #### C BCDFC, CHM7, HFP, IPB, MGO, PTPTT ####[facility] [facility], [place] [address]HtkpmyKettering Health Dayton[address] [place], [place] [address] Protein mass conc g/dL Normal 0.0-19.9 [facility] Comment on above: Result Comment: A de finitive clinical diagnosis cannot be made on the basis of a single positive P5-Emuwqatzmrft-7-Domain 1 (E1JJ3-Dl5) or a single positive B2GP1 antibody isotype result alone. Other anti-Phospholipid assays might be necessary as recommended in the revised classification criteria determinedby the International Committee for the diagnosis of Anti Phospholipid Syndrome (APS) in the meeting held in 2006 (J Thromb Haemost 2006, 4:295-306). APS is characterized by the persistent presence (12 weeks or greater) of anti-Phospholipid (aPL) antibodies in patients with thrombosis and/or morbidity.X4HD5-Fd9 antibody, in the presence of other positive tests for APS, has been shown to be a robust test which can be useful in identifying individuals at high risk of developing thromboembolic events (J Thromb Haemost 2015, 13:782-7). Clinical correlation is recommended.Anti-B2GP1 IgG and IgM results greater than 20 CU or [id number] results greater than 19 CU are considered positive based on the cutoff values established for these tests. No international reference serum for anti-B2GP1 antibodies is available that allows for the standardization of anti-B2GP1 antibody assays.The magnitude of the reported IgG and IgM autoantibody levels cannot always be correlated to an endpoint titer. These results were obtained with the The Daily Caller[employer] Flash chemiluminescent immunoassay. Values obtained with different manufacturers assay methods may not be used interchangeably. Performed By: #### C BCDFC, CHM7, HFP, IPB, MGO, PTPTT ####[facility] [place], [place] [id number] [place] [address] CHEM 7on 01-23-2018 Anion gap 3 molar conc 13 mmol/L Normal 7-17 [facility] Comment on above: Performed By: #### H EMOGC, RETIC, CHM7, MGO, FT4, TSH, HEP3B ####[facility] [place], [place] [id number] [address] [place] [address] Chloride molar conc 112 mmol/L High 98-108 [facility] Comment on above: Performed By: #### H EMOGC, RETIC, CHM7, MGO, FT4, TSH, HEP3B ####[facility] [place], [place] [id number] [address] [place] [address] CO2 molar conc 19 mmol/L Low 22-30 [facility] Comment on above: Performed By: #### H EMOGC, RETIC, CHM7, MGO, FT4, TSH, HEP3B ####[facility] [place], [place] [id number] [address] [place] [address] Creatinine mass conc 2.10 mg/dL High 0.70-1.30 [facility] Comment on above: Performed By: #### H EMOGC, RETIC, CHM7, MGO, FT4, TSH, HEP3B ####[facility] [place], [place] [address] Est GFR, 39 mL/min/1.73sqM Low >60 [facility] Comment on above: Performed By: #### H EMOGC, RETIC, CHM7, MGO, FT4, TSH, HEP3B ####[facility] [place], [place] [id number] [place] [address] Est GFR,non 32 mL/min/1.73sqM Low >60 [facility] Comment on above: Performed By: #### H EMOGC, RETIC, CHM7, MGO, FT4, TSH, HEP3B ####[facility] [place], [place] [id number] [place] [address] Glucose mass conc 134 mg/dL High 70-99 [facility] Comment on above: Performed By: #### H EMOGC, RETIC, CHM7, MGO, FT4, TSH, HEP3B ####[facility] [place], [place] [id number] [place] [address] Osmolality 309 mOsm/kg High 278-305 [facility] Comment on above: Performed By: #### H EMOGC, RETIC, CHM7, MGO, FT4, TSH, HEP3B ####[facility] [place], [place] [id number] [place] [address] Potassium molar conc 4.1 mmol/L Normal 3.5-5.0 [facility] Comment on above: Performed By: #### H EMOGC, RETIC, CHM7, MGO, FT4, TSH, HEP3B ####[facility] [place], [place] [address] [place] [address] Sodium molar conc 140 mmol/L Normal 133-143 [facility] Comment on above: Performed By: #### H EMOGC, RETIC, CHM7, MGO, FT4, TSH, HEP3B ####[facility] [place] [address] [place], [place] [id number] [address] [place] [address] Urea nitrogen mass conc 52 mg/dL High 7-22 [facility] Comment on above: Performed By: #### H EMOGC, RETIC, CHM7, MGO, FT4, TSH, HEP3B ####[facility] [place], [place] [id number] [address] [place] [address] Urea nitrogen/Creatinine mass ratio 25 mg/mg Normal [facility] Comment on above: Performed By: #### H EMOGC, RETIC, CHM7, MGO, FT4, TSH, HEP3B ####[facility] [place], [place] [id number] [place] [address] Cryoglobulin/Cryofibrinogeno n 01-23-2018 *Cryofibrinogen Negative Normal Negative [facility] Comment on above: Result Comment: Test performed by [facility] Dpt of Lab Med & Pathology Performed By: #### C BCDFC, CHM7, HFP, IPB, MGO, PTPTT ####[facility] [place], [place] [id number] [place] [address] CRYOGLOBULIN Trace cryoprecipitate Normal Negative [facility] Comment on above: Performed By: #### C BCDFC, CHM7, HFP, IPB, MGO, PTPTT ####[facility] [place], [place] [id number] [place] [address] HEMOGRAM (CBC and Platelet)o n 01-23-2018 Hematocrit Auto Volume Fraction (Bld) 25.4 % Low 40.1-51.0 [facility] Comment on above: Performed By: #### H EMOGC, RETIC, CHM7, MGO, FT4, TSH, HEP3B ####[facility] [place], [place] [id number] [address] [place] [address] Hemoglobin mass conc (Bld) 7.7 g/dL Low 13.7-17.5 [facility] Comment on above: Performed By: #### H EMOGC, RETIC, CHM7, MGO, FT4, TSH, HEP3B ####[facility] [place], [place] [id number] [place] [address] MCV Auto Entitic volume (RBC) 90.1 fL Normal 79.0-92.2 [facility] Comment on above: Performed By: #### H EMOGC, RETIC, CHM7, MGO, FT4, TSH, HEP3B ####[facility] [place], [place] [id number] [place] [address] Mean Cell Hgb 27.3 pg Normal 25.7-32.2 [facility] Comment on above: Performed By: #### H EMOGC, RETIC, CHM7, MGO, FT4, TSH, HEP3B ####[facility] [place], [place] [id number] [place] [address] Mean Cell Hgb Conc 30.3 g/dL Critically low 32.3-36.5 [facility] Comment on above: Performed By: #### H EMOGC, RETIC, CHM7, MGO, FT4, TSH, HEP3B ####[facility] [place], [place] [address] [place] [address] Nucleated RBC #/vol (Bld) 0.0 /100 WBC Normal 0.0-0.2 [facility] Comment on above: Performed By: #### H EMOGC, RETIC, CHM7, MGO, FT4, TSH, HEP3B ####[facility] [place], [place] [id number] [place] [address] Platelet mean volume Auto Entitic volume (Bld) 9.4 fL Normal 9.4-12.4 [facility] Comment on above: Performed By: #### H EMOGC, RETIC, CHM7, MGO, FT4, TSH, HEP3B ####[facility] [place], [place] [id number] [place] [address] Platelets Auto #/vol (Bld) 104 10*3/uL Low 163-337 [facility] Comment on above: Performed By: #### H HAIGC, RETIC, CHM7, MGO, FT4, TSH, HEP3B ####[facility] [place], [place] [id number] [place] [address] RBC Auto #/vol (Bld) 20.0 % High 11.6-14.4 [facility] Comment on above: Performed By: #### H EMOGC, RETIC, CHM7, MGO, FT4, TSH, HEP3B ####[facility] [place], [place] [address] [place] [address] RBC Auto #/vol (Bld) 2.82 10*6/uL Low 4.63-6.08 [facility] Comment on above: Performed By: #### H EMOGC, RETIC, CHM7, MGO, FT4, TSH, HEP3B ####[facility] [place], [place] [id number] [place] [address] WBC Auto #/vol (Bld) 9.23 10*3/uL High 4.23-9.07 [facility] Comment on above: Performed By: #### H EMOGC, RETIC, CHM7, MGO, FT4, TSH, HEP3B ####[facility] [place], [place] [id number] [place] [address] HEPATIC FUNCTION PANELon Albumin mass conc 2.6 g/dL Low 3.5-5.0 [facility] Comment on above: Performed By: #### H EMOGC, RETIC, CHM7, MGO, FT4, TSH, HEP3B ####[facility] [place], [place] [id number] [place] [address] ALP enzyme act/vol 43 U/L Normal 32-126 [facility] Comment on above: Performed By: #### H EMOGC, RETIC, CHM7, MGO, FT4, TSH, HEP3B ####[facility] [place], [place] [id number] [place] [address] ALT enzyme act/vol 13 U/L Normal 10-52 [facility] Comment on above: Performed By: #### H EMOGC, RETIC, CHM7, MGO, FT4, TSH, HEP3B ####[facility] [place], [place] [id number] [place] [address] AST enzyme act/vol 9 U/L Low 14-40 [facility] Comment on above: Performed By: #### H EMOGC, RETIC, CHM7, MGO, FT4, TSH, HEP3B ####[facility] [place], [place] [id number] [place] [address] Bilirubin mass conc 0.9 mg/dL Normal <1.5 [facility] Comment on above: Performed By: #### H EMOGC, RETIC, CHM7, MGO, FT4, TSH, HEP3B ####[facility] [place], [place] [id number] [place] [address] Bilirubin.direct mass conc 0.3 mg/dL High <0.3 [facility] Comment on above: Performed By: #### H EMOGC, RETIC, CHM7, MGO, FT4, TSH, HEP3B ####[facility] [place], [place] [id number] [place] [address] Protein mass conc 5.4 g/dL Low 6.4-8.3 [facility] Comment on above: Performed By: #### H EMOGC, RETIC, CHM7, MGO, FT4, TSH, HEP3B ####[facility] [place], [place] [id number] [place] [address] Lupus Anticoagulant Workupon 01-23-2018 aPTT Coag time (Bld) 35.4 s Normal 30.6-42.0 [facility] Comment on above: Performed By: #### C BCDFC, CHM7, HFP, IPB, MGO, PTPTT ####[facility] [place], [place] [id number] [place] [address] DRV Confirm Ratio Not indicated Normal [facility] Comment on above: Performed By: #### C BCDFC, CHM7, HFP, IPB, MGO, PTPTT ####[facility] [place] [address] [place], [place] [id number] [address] [place] [address] DRV Normalized Ratio Not indicated Normal <1.19 [facility] Comment on above: Performed By: #### C BCDFC, CHM7, HFP, IPB, MGO, PTPTT ####[facility] [place], [place] [id number] [place] [address] DRV Screen Ratio 1.04 Normal <1.16 [facility] Comment on above: Performed By: #### C BCDFC, CHM7, HFP, IPB, MGO, PTPTT ####[facility] [place], [place] [id number] [place] [address] Monoclonal Prot Immunofix, 2 4hr urineon 01-23-2018 %Monoclonal Light Chains Not applicable, no monoclonal protein present. Normal 0 [facility] Comment on above: Performed By: #### C BCDFC, CHM7, HFP, IPB, MGO, PTPTT ####[facility] [place], [place] [id number] [place] [address] Light Chains/24 hrs Not calculated Normal 0 [facility] Comment on above: Performed By: #### C BCDFC, CHM7, HFP, IPB, MGO, PTPTT ####[facility] [place], [place] [id number] [place] [address] PTTon 01-23-2018 aPTT Coag time (Bld) 93.9 s Critically high 24.0-34.3 [facility] Comment on above: Performed By: #### H EMOGC, RETIC, CHM7, MGO, FT4, TSH, HEP3B ####[facility] [place], [place] [address] [place] [address] aPTT Coag time (Bld) 91.8 s Critically high 24.0-34.3 [facility] Comment on above: Performed By: #### H EMOGC, RETIC, CHM7, MGO, FT4, TSH, HEP3B ####[facility] [place], [place] [address] [place] [address] aPTT Coag time (Bld) 88.5 s Critically high 24.0-34.3 [facility] Comment on above: Performed By: #### H EMOGC, RETIC, CHM7, MGO, FT4, TSH, HEP3B ####[facility] [place], [place] [id number] [place] [address] aPTT Coag time (Bld) 119.1 s Critically high 24.0-34.3 [facility] Comment on above: Performed By: #### H EMOGC, RETIC, CHM7, MGO, FT4, TSH, HEP3B ####[facility] [place], [place] [id number] [place] [address] LAVON Screen w Reflex Abs, Mul tiplexon 01-22-2018 LAVON Screen, Multiplex Negative Normal Negative [facility] Comment on above: Performed By: #### C BCDFC, CHM7, HFP, IPB, MGO, PTPTT ####[facility] [place], [place] [id number] [place] [address] COMMENT This multiplexed LAVON screening detects the following autoantibodies (dsDNA, Sm, Sm/DEALER RELATIONSHIP MANAGER, DEALER RELATIONSHIP MANAGER, SS-A/Ro, SS-B/La, Kira-1, Scl-70, Chromatin, Centromere B, and Ribosomal P). Normal [facility] Comment on above: Result Comment: If t he original order contained any of the individual antibodies ordered separately those would have been canceled as duplicate order. Performed By: #### C BCDFC, CHM7, HFP, IPB, MGO, PTPTT ####[facility] [place] [address], [place] [address]LwweuvKettering Health Dayton[address] [place] [address] ANCA Initial Screenon 2017 Neutrophil Cytoplasmic Antibod Negative Normal Negative [facility] Comment on above: Performed By: #### C BCDFC, CHM7, HFP, IPB, MGO, PTPTT ####[facility] [facility], [place] [address]FykqiwKettering Health Dayton[address] [place] [address] Anti Cardiolipin Ab, IgG/IgM (ANTIPHOS AB)on 01-22-2018 Anti Cardiolipin*IgG Ab <10.0 Normal 0.0-20.0 [facility] Comment on above: Performed By: #### C BCDFC, CHM7, HFP, IPB, MGO, PTPTT ####[facility] [facility], [place] [address]RtprwbKettering Health Dayton[address] [place] [address] Anti Cardiolipin*IgM*Ab 19.1 CU Normal 0.0-20.0 [facility] Comment on above: Result Comment: A de finitive clinical diagnosis cannot be made on the basis of a single positive anti-Cardiolipin (aCL) isotype result alone. Other anti-Phospholipid assays might be necessary as recommended in the revised classification criteria determined by the International Committee for the diagnosisof Anti Phospholipid Syndrome (APS) in the meeting held in 2006 (J Thromb Haemost 2006, 4:295-306). APS is characterized by the persistent presence (12 weeks or greater) of anti-Phospholipid (aPL) antibodies in patients with thrombosis and/or morbidity. Clinical correlation is recommended.aCL IgG or IgM results greater than 20 CU are considered positive based on the cutoff values established for this test. International reference materials and consensus units for aCL IgG or IgM antibodies have not been established.The magnitude of the reported IgG or IgM autoantibody levels cannot always be correlated to an endpoint titer. These results were obtained with the [employer] Flash chemiluminescent immunoassay. Values obtained with different manufacturers assay methods may not be used interchangeably. Performed By: #### C BCDFC, CHM7, HFP, IPB, MGO, PTPTT ####[facility] [place] [address], [address] [place] [address] Antinuclear Antibody, IFAon 01-22-2018 Antinuclear Antibody, IFA Negative Normal Negative [facility] Comment on above: Performed By: #### C BCDFC, CHM7, HFP, IPB, MGO, PTPTT ####[facility] [place], [place] [id number] [place] [address] 14765 Bilirubin, Directon 01-23-20 18 Bilirubin.direct mass conc 0.3 mg/dL High <0.3 [facility] Comment on above: Performed By: #### C BCDFC, CHM7, HFP, IPB, MGO, PTPTT ####[facility] [place], [place] [id number] [place] [address] 45749 Bilirubin, Totalon 8 Bilirubin mass conc 0.9 mg/dL Normal <1.5 [facility] Comment on above: Performed By: #### C BCDFC, CHM7, HFP, IPB, MGO, PTPTT ####[facility] [place], [place] [id number] [place] [address] 11865 CHEM 7on 01-22-2018 Anion gap 3 molar conc 11 mmol/L Normal 7-17 [facility] Comment on above: Performed By: #### C BCDFC, CHM7, HFP, IPB, MGO, PTPTT ####[facility] [place] [id number] [place], [place] [id number] [place] [address] Chloride molar conc 114 mmol/L High 98-108 [facility] Comment on above: Performed By: #### C BCDFC, CHM7, HFP, IPB, MGO, PTPTT ####[facility] [place] [address], [address] [place] [address] CO2 molar conc 20 mmol/L Low 22-30 [facility] Comment on above: Performed By: #### C BCDFC, CHM7, HFP, IPB, MGO, PTPTT ####[facility] [place] [address], [address] [place] [address] Creatinine mass conc 2.03 mg/dL High 0.70-1.30 [facility] Comment on above: Performed By: #### C BCDFC, CHM7, HFP, IPB, MGO, PTPTT ####[facility] [place], [place] [id number] [place] [address] Est GFR, 40 mL/min/1.73sqM Low >60 [facility] Comment on above: Performed By: #### C BCDFC, CHM7, HFP, IPB, MGO, PTPTT ####[facility] [place], [place] [id number] [place] [address] Est GFR,non 33 mL/min/1.73sqM Low >60 [facility] Comment on above: Performed By: #### C BCDFC, CHM7, HFP, IPB, MGO, PTPTT ####[facility] [place], [place] [id number] [place] [address] 49974 Glucose mass conc 98 mg/dL Normal 70-99 [facility] Comment on above: Performed By: #### C BCDFC, CHM7, HFP, IPB, MGO, PTPTT ####[facility] [place], [place] [id number] [place] [address] 26989 Osmolality 307 mOsm/kg High 278-305 [facility] Comment on above: Performed By: #### C BCDFC, CHM7, HFP, IPB, MGO, PTPTT ####[facility] [place], [place] [id number] [place] [address] 57645 Potassium molar conc 3.9 mmol/L Normal 3.5-5.0 [facility] Comment on above: Performed By: #### C BCDFC, CHM7, HFP, IPB, MGO, PTPTT ####[facility] [place], [place] [id number] [place] [address] 52108 Sodium molar conc 141 mmol/L Normal 133-143 [facility] Comment on above: Performed By: #### C BCDFC, CHM7, HFP, IPB, MGO, PTPTT ####[facility] [place], [place] [id number] [place] [address] 79804 Urea nitrogen mass conc 48 mg/dL High 7-22 O [facility] Comment on above: Performed By: #### C BCDFC, CHM7, HFP, IPB, MGO, PTPTT ####[facility] [place] [address] Urea nitrogen/Creatinine mass ratio 24 mg/mg Normal [facility] Comment on above: Performed By: #### C BCDFC, CHM7, HFP, IPB, MGO, PTPTT ####[facility] [place], [place] [id number] [place] [address] Calciumon 01-22-2018 Calcium mass conc 8.2 mg/dL Low 8.6-10.5 [facility] Comment on above: Performed By: #### C BCDFC, CHM7, HFP, IPB, MGO, PTPTT ####[facility] [place], [place] [id number] [place] [address] Chronic Hepatitis B Packageo n 01-22-2018 Hep B Core Ab,Total (IgG+IgM) Negative Normal Negative [facility] Comment on above: Performed By: #### C BCDFC, CHM7, HFP, IPB, MGO, PTPTT ####[facility] [place], [place] [id number] [place] [address] Hep B Surface Ag Negative Normal Negative [facility] Comment on above: Performed By: #### C BCDFC, CHM7, HFP, IPB, MGO, PTPTT ####[facility] [place], [place] [id number] [place] [address] Hep B Surface Ab Negative Normal [facility] Comment on above: Performed By: #### C BCDFC, CHM7, HFP, IPB, MGO, PTPTT ####[facility] [place], [place] [id number] [place] [address] Hepatitis C Antibody Negative Normal Negative [facility] Comment on above: Performed By: #### C BCDFC, CHM7, HFP, IPB, MGO, PTPTT ####[facility] [place] [address], [place] [address] [place], [place] [id number] [place] [address] DS DNA, Multiplexon 01-23-20 18 DS DNA Ab, Quant <1 Normal 0-3 [facility] Comment on above: Performed By: #### C BCDFC, CHM7, HFP, IPB, MGO, PTPTT ####[facility] [place], [place] [id number] [place] [address] DS DNA Antibody Negative Normal Negative [facility] Comment on above: Performed By: #### C BCDFC, CHM7, HFP, IPB, MGO, PTPTT ####[facility] [place] [address], [address] [place] [address] Direct Antiglobulinon 2017 Direct Antiglobulin Negative Normal [facility] Comment on above: Performed By: #### C BCDFC, CHM7, HFP, IPB, MGO, PTPTT ####[facility] [place], [place] [id number] [place] [address] HEMOGRAM (CBC and Platelet)o n 01-22-2018 Hematocrit Auto Volume Fraction (Bld) 25.4 % Low 40.1-51.0 [facility] Comment on above: Performed By: #### C BCDFC, CHM7, HFP, IPB, MGO, PTPTT ####[facility] [place], [place] [id number] [place] [address] Hemoglobin mass conc (Bld) 8.0 g/dL Low 13.7-17.5 [facility] Comment on above: Performed By: #### C BCDFC, CHM7, HFP, IPB, MGO, PTPTT ####[facility] [facility], [place] [address]IhmlccKettering Health Dayton[address] [place] [address] 32161 MCV Auto Entitic volume (RBC) 88.2 fL Normal 79.0-92.2 [facility] Comment on above: Performed By: #### C BCDFC, CHM7, HFP, IPB, MGO, PTPTT ####[facility] [place] [address], [address] [place] [address] Mean Cell Hgb 27.8 pg Normal 25.7-32.2 [facility] Comment on above: Performed By: #### C BCDFC, CHM7, HFP, IPB, MGO, PTPTT ####[facility] [place] [id number] [place], [place] [id number] [place] [address] 54794 Mean Cell Hgb Conc 31.5 g/dL Low 32.3-36.5 [facility] Comment on above: Performed By: #### C BCDFC, CHM7, HFP, IPB, MGO, PTPTT ####[facility] [place] [address], [place] [address]HgicboKettering Health Dayton[address] [place] [address] 19258 Nucleated RBC #/vol (Bld) 0.0 /100 WBC Normal 0.0-0.2 [facility] Comment on above: Performed By: #### C BCDFC, CHM7, HFP, IPB, MGO, PTPTT ####[facility] [place] [address], [place] [address]Zgakyq[address] [place], [place] [id number] [place] [address] 15129 Platelet mean volume Auto Entitic volume (Bld) 9.6 fL Normal 9.4-12.4 [facility] Comment on above: Performed By: #### C BCDFC, CHM7, HFP, IPB, MGO, PTPTT ####[facility] [facility], [place] [address]zwzyw[address] [place], [place] [id number] [place] [address] 15079 Platelets Auto #/vol (Bld) 119 10*3/uL Low 163-337 [facility] Comment on above: Performed By: #### C BCDFC, CHM7, HFP, IPB, MGO, PTPTT ####[facility] [place] [address], [address] [place] [address] 03947 RBC Auto #/vol (Bld) 2.88 10*6/uL Low 4.63-6.08 [facility] Comment on above: Performed By: #### C BCDFC, CHM7, HFP, IPB, MGO, PTPTT ####[facility] [place], [place] [id number] [place] [address] 26584 RBC Auto #/vol (Bld) 19.9 % High 11.6-14.4 [facility] Comment on above: Performed By: #### C BCDFC, CHM7, HFP, IPB, MGO, PTPTT ####[facility] [place] [address], [place] [address]Tkxnac[address] [place], [place] [id number] [place] [address] 91802 WBC Auto #/vol (Bld) 11.51 10*3/uL High 4.23-9.07 [facility] Comment on above: Performed By: #### C BCDFC, CHM7, HFP, IPB, MGO, PTPTT ####[facility] [place], [place] [id number] [place] [address] HIV-1/HIV-2 AB with p24 Anti genon 01-22-2018 HIV-1/HIV-2 AB with p24 Antige NONREACTIVE Normal NONREACTIVE [facility] Comment on above: Performed By: #### C BCDFC, CHM7, HFP, IPB, MGO, PTPTT ####[facility] [place], [place] [id number] [place] [address] Hepatitis C Antibodyon 01-22 Hepatitis C Antibody Negative Normal Negative [facility] Comment on above: Performed By: #### C BCDFC, CHM7, HFP, IPB, MGO, PTPTT ####[facility] [place], [place] [id number] [place] [address] IRON*TIBC (TRANSFERRIN)on *Iron*Saturation 51 % Normal 20-55 [facility] Comment on above: Performed By: #### C BCDFC, CHM7, HFP, IPB, MGO, PTPTT ####[facility] [place], [place] [id number] [place] [address] Iron mass conc 114 ug/dL Normal 40-174 [facility] Comment on above: Performed By: #### C BCDFC, CHM7, HFP, IPB, MGO, PTPTT ####[facility] [place], [place] [id number] [place] [address] Total Iron Binding Capacity 225 mcg/dL Low 298-596 [facility] Comment on above: Performed By: #### C BCDFC, CHM7, HFP, IPB, MGO, PTPTT ####[facility] [place] [address]365 Transferrin mass conc 151 mg/dL Low 200-400 [facility] Comment on above: Performed By: #### C BCDFC, CHM7, HFP, IPB, MGO, PTPTT ####[facility] [place], [place] [id number] [place] [address] Monoclonal Prot Immunofix, 2 4hr urineon 01-22-2018 INTERPRETATION BY: Guera Austin M.D. Normal [facility] Comment on above: Performed By: #### C BCDFC, CHM7, HFP, IPB, MGO, PTPTT ####[facility] [place], [place] [id number] [place] [address] URINE ELECTROPHORESIS Increased amount o f low and high molecular weight serum proteins present. Normal [facility] Comment on above: Performed By: #### C BCDFC, CHM7, HFP, IPB, MGO, PTPTT ####[facility] [place], [place] [id number] [place] [address] PTTon 01-22-2018 aPTT Coag time (Bld) 61.1 s Critically high 24.0-34.3 [facility] Comment on above: Performed By: #### C BCDFC, CHM7, HFP, IPB, MGO, PTPTT ####[facility] [place], [place] [id number] [place] [address] aPTT Coag time (Bld) 31.4 s Normal 24.0-34.3 [facility] Comment on above: Performed By: #### C BCDFC, CHM7, HFP, IPB, MGO, PTPTT ####[facility] [place] [address], [place] [address]Duajti[address] [place], [place] [id number] [place] [address] 94537 Protein Electrophoresis with reflexon 01-22-2018 Albumin mass conc 2.5 g/dL Low 3.5-5.0 [facility] Comment on above: Performed By: #### C BCDFC, CHM7, HFP, IPB, MGO, PTPTT ####[facility] [place], [place] [id number] [place] [address] 37328 ALPHA 1 0.4 g/dL Normal 0.2-0.4 [facility] Comment on above: Performed By: #### C BCDFC, CHM7, HFP, IPB, MGO, PTPTT ####[facility] [place] [address], [place] [address]Aipcjs[address] [place] [id number] [address] [place] [address] ALPHA 2 0.4 g/dL Low 0.5-1.0 [facility] Comment on above: Performed By: #### C BCDFC, CHM7, HFP, IPB, MGO, PTPTT ####[facility] [place] [id number] [place], [place] [address] [place] [address] 09353 BETA 0.6 g/dL Normal 0.5-1.1 [facility] Comment on above: Performed By: #### C BCDFC, CHM7, HFP, IPB, MGO, PTPTT ####[facility] [place], [place] [id number] [place] [address] 55894 Gamma 1.4 g/dL Normal 0.6-1.5 [facility] Comment on above: Performed By: #### C BCDFC, CHM7, HFP, IPB, MGO, PTPTT ####[facility] [place] [address], [place] [address]KffcwuKettering Health Dayton[address] [place] [address] REVIEWED BY: Guera Austin M.D. [facility] Comment on above: Performed By: #### C BCDFC, CHM7, HFP, IPB, MGO, PTPTT ####[facility] [place], [place] [address]10[facility] [place] [address] SPE INTERPRETATION Alpha-2 is decreased . This may occur with low concentration of haptoglobin which may be due to liver disease or congenital deficiency. Normal [facility] Comment on above: Result Comment: The albumin is decreased. This may occur in protein loss, malnutrition, liver disease, and (or) as an acute-phase reactant. Performed By: #### C BCDFC, CHM7, HFP, IPB, MGO, PTPTT ####[facility] [place], [place] [id number] [place] [address] QUANTITATIVE IMMUNOGLOBULINS on 01-22-2018 IgA 209 mg/dL Normal 90-410 [facility] Comment on above: Performed By: #### C BCDFC, CHM7, HFP, IPB, MGO, PTPTT ####[facility] [place], [place] [address]10[facility] [place] [address] IgG 1268 mg/dL Normal 600-1560 [facility] Comment on above: Performed By: #### C BCDFC, CHM7, HFP, IPB, MGO, PTPTT ####[facility] [place], [place] [id number] [place] [address] IgM 257 mg/dL Normal 30-360 [facility] Comment on above: Performed By: #### C BCDFC, CHM7, HFP, IPB, MGO, PTPTT ####[facility] [place] [address], [place] [address]LvrczrKettering Health Dayton[address] [place] [address] 78698 Serum Free Light Chainson [place]/Lambda Ratio 1.82 High 0.51-1.72 [facility] Comment on above: Performed By: #### C BCDFC, CHM7, HFP, IPB, MGO, PTPTT ####[facility] [place] [address], [place] [address]YgxpajKettering Health Dayton[address] [place] [address] 95349 Lambda Free Light Chains 44.7 mg/L High 6.4-22.1 [facility] Comment on above: Performed By: #### C BCDFC, CHM7, HFP, IPB, MGO, PTPTT ####[facility] [place] [address], [place] [address]Qvrwfl[address] [place], [place] [id number] [place] [address] 25478 [place] Free Light Chains 81.2 mg/L High 3.9-26.0 O [facility] Comment on above: Performed By: #### C BCDFC, CHM7, HFP, IPB, MGO, PTPTT ####[facility] [place], [place] [id number] [place] [address] 13676 Vitamin B12on 01-22-2018 Cobalamin (Vitamin B12) mass conc 312 pg/mL Normal 211-911 [facility] Comment on above: Result Comment: Test ing of Methylmalonic Acid and IntrinsicFactor Blocking Antibody are recommended ifclinical suspicion for pernicious anemia dueto B12 deficiency is high for patients withintermediate B12 levels (211 to 400 pg/mL) to ruleout spurious heterophile antibodies. Pleasecontact lab for add on requests at [phone]. Performed By: #### C BCDFC, CHM7, HFP, IPB, MGO, PTPTT ####[facility] [place] [address]WowhoyKettering Health Dayton[address] [place] [address] 06702 CHEM 7on 01-21-2018 Anion gap 3 molar conc 11 mmol/L Normal 7-17 [facility] Comment on above: Performed By: #### C BCDFC, CHM7, HFP, IPB, MGO, PTPTT ####[facility] [place], [place] [id number] [place] [address] 32442 Chloride molar conc 114 mmol/L High 98-108 [facility] Comment on above: Performed By: #### C BCDFC, CHM7, HFP, IPB, MGO, PTPTT ####[facility] [place] [address] [place], [place] [address] [place] [address] 47551 CO2 molar conc 20 mmol/L Low 22-30 [facility] Comment on above: Performed By: #### C BCDFC, CHM7, HFP, IPB, MGO, PTPTT ####[facility] [place] [address] [place], [place] [address] [place] [address] 21961 Creatinine mass conc 1.89 mg/dL High 0.70-1.30 [facility] Comment on above: Performed By: #### C BCDFC, CHM7, HFP, IPB, MGO, PTPTT ####[facility] [place] [address] [place], [place] [address] [place] [address] 55348 Est GFR, 44 mL/min/1.73sqM Low >60 [facility] Comment on above: Performed By: #### C BCDFC, CHM7, HFP, IPB, MGO, PTPTT ####[facility] [place], [place] [id number] [place] [address] 44687 Est GFR,non 36 mL/min/1.73sqM Low >60 [facility] Comment on above: Performed By: #### C BCDFC, CHM7, HFP, IPB, MGO, PTPTT ####[facility] [place], [place] [id number] [place] [address] Glucose mass conc 144 mg/dL High 70-99 [facility] Comment on above: Performed By: #### C BCDFC, CHM7, HFP, IPB, MGO, PTPTT ####[facility] [place], [place] [id number] [place] [address] Osmolality 310 mOsm/kg High 278-305 [facility] Comment on above: Performed By: #### C BCDFC, CHM7, HFP, IPB, MGO, PTPTT ####[facility] [place], [place] [id number] [place] [address] Potassium molar conc 4.1 mmol/L Normal 3.5-5.0 [facility] Comment on above: Performed By: #### C BCDFC, CHM7, HFP, IPB, MGO, PTPTT ####[facility] [place], [place] [id number] [place] [address] 25420 Sodium molar conc 141 mmol/L Normal 133-143 [facility] Comment on above: Performed By: #### C BCDFC, CHM7, HFP, IPB, MGO, PTPTT ####[facility] [place], [place] [id number] [place] [address] Urea nitrogen mass conc 46 mg/dL High 7-22 O [facility] Comment on above: Performed By: #### C BCDFC, CHM7, HFP, IPB, MGO, PTPTT ####[facility] [place], [place] [address]BuogctKettering Health Dayton[address] [place] [address] Urea nitrogen/Creatinine mass ratio 24 mg/mg Normal [facility] Comment on above: Performed By: #### C BCDFC, CHM7, HFP, IPB, MGO, PTPTT ####[facility] [place], [place] [id number] [place] [address] HEMOGRAM (CBC and Platelet)o n 01-21-2018 Hematocrit Auto Volume Fraction (Bld) 25.9 % Low 40.1-51.0 [facility] Comment on above: Performed By: #### C BCDFC, CHM7, HFP, IPB, MGO, PTPTT ####[facility] [place], [place] [id number] [place] [address] Hemoglobin mass conc (Bld) 8.0 g/dL Low 13.7-17.5 [facility] Comment on above: Performed By: #### C BCDFC, CHM7, HFP, IPB, MGO, PTPTT ####[facility] [place], [place] [id number] [place] [address] MCV Auto Entitic volume (RBC) 86.3 fL Normal 79.0-92.2 [facility] Comment on above: Performed By: #### C BCDFC, CHM7, HFP, IPB, MGO, PTPTT ####[facility] [place], [place] [id number] [place] [address] Mean Cell Hgb 26.7 pg Normal 25.7-32.2 [facility] Comment on above: Performed By: #### C BCDFC, CHM7, HFP, IPB, MGO, PTPTT ####[facility] [place] [address] Mean Cell Hgb Conc 30.9 g/dL Critically low 32.3-36.5 [facility] Comment on above: Performed By: #### C BCDFC, CHM7, HFP, IPB, MGO, PTPTT ####[facility] [place], [place] [id number] [place] [address] Nucleated RBC #/vol (Bld) 0.0 /100 WBC Normal 0.0-0.2 [facility] Comment on above: Performed By: #### C BCDFC, CHM7, HFP, IPB, MGO, PTPTT ####[facility] [place], [place] [id number] [place] [address] Platelet mean volume Auto Entitic volume (Bld) 9.2 fL Low 9.4-12.4 [facility] Comment on above: Performed By: #### C BCDFC, CHM7, HFP, IPB, MGO, PTPTT ####[facility] [place], [place] [id number] [place] [address] 23032 Platelets Auto #/vol (Bld) 118 10*3/uL Low 163-337 [facility] Comment on above: Performed By: #### C BCDFC, CHM7, HFP, IPB, MGO, PTPTT ####[facility] [place] [address], [address] [place] [address] RBC Auto #/vol (Bld) 3.00 10*6/uL Low 4.63-6.08 [facility] Comment on above: Performed By: #### C BCDFC, CHM7, HFP, IPB, MGO, PTPTT ####[facility] [place], [place] [id number] [place] [address] RBC Auto #/vol (Bld) 19.4 % High 11.6-14.4 [facility] Comment on above: Performed By: #### C BCDFC, CHM7, HFP, IPB, MGO, PTPTT ####[facility] [place], [place] [id number] [place] [address] WBC Auto #/vol (Bld) 8.01 10*3/uL Normal 4.23-9.07 [facility] Comment on above: Performed By: #### C BCDFC, CHM7, HFP, IPB, MGO, PTPTT ####[facility] [place], [place] [id number] [place] [address] Haptoglobinon 01-21-2018 Haptoglobin <30 Low 44-215 [facility] Comment on above: Performed By: #### C BCDFC, CHM7, HFP, IPB, MGO, PTPTT ####[facility] [place], [place] [id number] [place] [address] LD Totalon 01-21-2018 LD Total 262 U/L High 100-190 [facility] Comment on above: Performed By: #### C BCDFC, CHM7, HFP, IPB, MGO, PTPTT ####[facility] [place], [place] [id number] [place] [address] 11153 Monoclonal Prot Immunofix, 2 4hr urineon 01-21-2018 Protein, urine 24 hr 852 mg/24 hrs High 40-225 O [facility] Comment on above: Performed By: #### C BCDFC, CHM7, HFP, IPB, MGO, PTPTT ####[facility] [place], [place] [id number] [place] [address]270 PROTEIN, urine mg/dL 56 mg/dL Normal [facility] Comment on above: Performed By: #### C BCDFC, CHM7, HFP, IPB, MGO, PTPTT ####[facility] [place], [place] [id number] [place] [address] 27250 SCHISTOCYTESon 01-21-2018 SCHISTOCYTES Slide reviewed, no schistocytes seen Normal Slide reviewed, no schistocytes seen [facility] Comment on above: Performed By: #### C BCDFC, CHM7, HFP, IPB, MGO, PTPTT ####[facility] [place], [place] [id number] [place] [address] 43081 Volume Measuredon 01-21-2018 Interval 24 hrs Normal [facility] Comment on above: Performed By: #### C BCDFC, CHM7, HFP, IPB, MGO, PTPTT ####[facility] [place], [place] [id number] [place] [address] 46419 Volume 1522 mL Normal 0-6000 [facility] Comment on above: Performed By: #### C BCDFC, CHM7, HFP, IPB, MGO, PTPTT ####[facility] [place], [place] [id number] [place] [address] *POC GLUCOSE BATTERYon 01-20 *POC SAMPLE TYPE Capillary Blood Normal [facility] Glucose mass conc 293 mg/dL High 70-99 [facility] Comment on above: Result Comment: No Tasha CARTER per RN: PATIENT TYPE C3 and C4 Batteryon 01-21-20 18 C4 <8 Low 18-52 [facility] Comment on above: Performed By: #### C BCDFC, CHM7, HFP, IPB, MGO, PTPTT ####[facility] [place], [place] [id number] [place] [address] C3 45 mg/dL Low 87-200 [facility] Comment on above: Performed By: #### C BCDFC, CHM7, HFP, IPB, MGO, PTPTT ####[facility] [place], [place] [id number] [address] [place] [address] CBC,PLATELET,DIFFERENTIAL - CCLon 01-20-2018 Abs Baso <0.04 Normal 0.01-0.08 [facility] Comment on above: Performed By: #### C BCDFC, CHM7, HFP, IPB, MGO, PTPTT ####[facility] [place], [place] [id number] [address] [place] [address] Abs Eos <0.04 Low 0.04-0.54 [facility] Comment on above: Performed By: #### C BCDFC, CHM7, HFP, IPB, MGO, PTPTT ####[facility] [place], [place] [id number] [address] [place] [address] Abs Burleson 0.45 K/uL Normal 0.30-0.82 [facility] Comment on above: Performed By: #### C BCDFC, CHM7, HFP, IPB, MGO, PTPTT ####[facility] [place] [address], [place] [address]LgeeszKettering Health Dayton[address] [place] [address] 28890 Basophils/100 WBC Auto (Bld) 0.1 % Normal [facility] Comment on above: Performed By: #### C BCDFC, CHM7, HFP, IPB, MGO, PTPTT ####[facility] [place] [address], [place] [address]FlfzznKettering Health Dayton[address] [place] [address] DIFFERENTIAL TYPE Electronic Differential Normal [facility] Comment on above: Performed By: #### C BCDFC, CHM7, HFP, IPB, MGO, PTPTT ####[facility] [place] [address], [place] [address]NntgwgKettering Health Dayton[address] [place] [address]959 Eosinophils/100 WBC Auto (Bld) 0.2 % Normal [facility] Comment on above: Performed By: #### C BCDFC, CHM7, HFP, IPB, MGO, PTPTT ####[facility] [place] [address], [place] [address]SpjwusKettering Health Dayton[address] [place] [address]11 Hematocrit Auto Volume Fraction (Bld) 27.8 % Low 40.1-51.0 [facility] Comment on above: Performed By: #### C BCDFC, CHM7, HFP, IPB, MGO, PTPTT ####[facility] [place] [address], [place] [address]ThrtojKettering Health Dayton[address] [place] [address] 16230 Hemoglobin mass conc (Bld) 9.0 g/dL Low 13.7-17.5 [facility] Comment on above: Performed By: #### C BCDFC, CHM7, HFP, IPB, MGO, PTPTT ####[facility] [place], [place] [id number] [address] [place] [address] 77446 IMMATURE GRANS % 1.1 % Normal [facility] Comment on above: Performed By: #### C BCDFC, CHM7, HFP, IPB, MGO, PTPTT ####[facility] [place], [place] [id number] [address] [place] [address] 70472 IMMATURE GRANS ABSOLUTE 0.09 K/uL High 0.00-0.03 O [facility] Comment on above: Performed By: #### C BCDFC, CHM7, HFP, IPB, MGO, PTPTT ####[facility] [place], [place] [id number] [address] [place] [address] Lymphocytes Auto #/vol (Bld) 0.63 10*3/uL Low 1.32-3.57 [facility] Comment on above: Performed By: #### C BCDFC, CHM7, HFP, IPB, MGO, PTPTT ####[facility] [place], [place] [id number] [address] [place] [address]20 Lymphocytes/100 WBC Auto (Bld) 7.6 % Normal [facility] Comment on above: Performed By: #### C BCDFC, CHM7, HFP, IPB, MGO, PTPTT ####[facility] [place], [place] [id number] [address] [place] [address] MCV Auto Entitic volume (RBC) 86.1 fL Normal 79.0-92.2 [facility] Comment on above: Performed By: #### C BCDFC, CHM7, HFP, IPB, MGO, PTPTT ####[facility] [place] [address], [place] [address] [place], [place] [id number] [place] [address] 16033 Mean Cell Hgb 27.9 pg Normal 25.7-32.2 [facility] Comment on above: Performed By: #### C BCDFC, CHM7, HFP, IPB, MGO, PTPTT ####[facility] [place] [address], [place] [address]SzbmvmKettering Health Dayton[address] [place] [address] 27596 Mean Cell Hgb Conc 32.4 g/dL Normal 32.3-36.5 [facility] Comment on above: Performed By: #### C BCDFC, CHM7, HFP, IPB, MGO, PTPTT ####[facility] [place], [place] [id number] [address] [place] [address] 20398 Monocytes/100 WBC Auto (Bld) 5.4 % Normal [facility] Comment on above: Performed By: #### C BCDFC, CHM7, HFP, IPB, MGO, PTPTT ####[facility] [place] [address], [address] [place] [address] 46112 NEUTROPHIL SEGMENTED 85.6 % Normal [facility] Comment on above: Performed By: #### C BCDFC, CHM7, HFP, IPB, MGO, PTPTT ####[facility] [place], [place] [id number] [address] [place] [address] 10836 Nucleated RBC #/vol (Bld) 0.0 /100 WBC Normal 0.0-0.2 [facility] Comment on above: Performed By: #### C BCDFC, CHM7, HFP, IPB, MGO, PTPTT ####[facility] [place] [address], [place] [address]Uxez[address] [place], [place] [id number] [address] [place] [address] 40593 Platelet mean volume Auto Entitic volume (Bld) 9.4 fL Normal 9.4-12.4 [facility] Comment on above: Performed By: #### C BCDFC, CHM7, HFP, IPB, MGO, PTPTT ####[facility] [place] [address], [address] [place] [address] 86485 Platelets Auto #/vol (Bld) 126 10*3/uL Low 163-337 [facility] Comment on above: Performed By: #### C BCDFC, CHM7, HFP, IPB, MGO, PTPTT ####[facility] [place] [address], [address] [place] [address] RBC Auto #/vol (Bld) 3.23 10*6/uL Low 4.63-6.08 [facility] Comment on above: Performed By: #### C BCDFC, CHM7, HFP, IPB, MGO, PTPTT ####[facility] [place] [address], [address] [place] [address] 45352 RBC Auto #/vol (Bld) 18.7 % High 11.6-14.4 [facility] Comment on above: Performed By: #### C BCDFC, CHM7, HFP, IPB, MGO, PTPTT ####[facility] [place], [place] [id number] [place] [address] 19075 SEGS + Bands,Absolute 7.11 K/uL High 1.78-5.38 [facility] Comment on above: Performed By: #### C BCDFC, CHM7, HFP, IPB, MGO, PTPTT ####[facility] [place], [place] [id number] [address] [place] [address] WBC Auto #/vol (Bld) 8.31 10*3/uL Normal 4.23-9.07 [facility] Comment on above: Performed By: #### C BCDFC, CHM7, HFP, IPB, MGO, PTPTT ####[facility] [place], [place] [id number] [address] [place] [address] CHEM 7on 01-20-2018 Anion gap 3 molar conc 12 mmol/L Normal 7-17 [facility] Comment on above: Performed By: #### H EMOGC, RETIC, CHM7, MGO, FT4, TSH, HEP3B ####[facility] [place], [place] [id number] [address] [place] [address] Chloride molar conc 112 mmol/L High 98-108 [facility] Comment on above: Performed By: #### H EMOGC, RETIC, CHM7, MGO, FT4, TSH, HEP3B ####[facility] [place], [place] [id number] [address] [place] [address] CO2 molar conc 19 mmol/L Low 22-30 [facility] Comment on above: Performed By: #### H EMOGC, RETIC, CHM7, MGO, FT4, TSH, HEP3B ####[facility] [place], [place] [id number] [address] [place] [address] Creatinine mass conc 1.80 mg/dL High 0.70-1.30 [facility] Comment on above: Performed By: #### H EMOGC, RETIC, CHM7, MGO, FT4, TSH, HEP3B ####[facility] [place] [address] [place], [place] [id number] [place] [address] 21550 Est GFR, 46 mL/min/1.73sqM Low >60 [facility] Comment on above: Performed By: #### H EMOGC, RETIC, CHM7, MGO, FT4, TSH, HEP3B ####[facility] [place], [place] [id number] [address] [place] [address] 46143 Est GFR,non 38 mL/min/1.73sqM Low >60 [facility] Comment on above: Performed By: #### H EMOGC, RETIC, CHM7, MGO, FT4, TSH, HEP3B ####[facility] [place], [place] [id number] [address] [place] [address] Glucose mass conc 96 mg/dL Normal 70-99 [facility] Comment on above: Performed By: #### H EMOGC, RETIC, CHM7, MGO, FT4, TSH, HEP3B ####[facility] [place], [place] [id number] [address] [place] [address] Osmolality 301 mOsm/kg Normal 278-305 [facility] Comment on above: Performed By: #### H EMOGC, RETIC, CHM7, MGO, FT4, TSH, HEP3B ####[facility] [place], [place] [id number] [address] [place] [address] Potassium molar conc 3.6 mmol/L Normal 3.5-5.0 [facility] Comment on above: Performed By: #### H EMOGC, RETIC, CHM7, MGO, FT4, TSH, HEP3B ####[facility] [place], [place] [id number] [address] [place] [address] 82493 Sodium molar conc 139 mmol/L Normal 133-143 [facility] Comment on above: Performed By: #### H EMOGC, RETIC, CHM7, MGO, FT4, TSH, HEP3B ####[facility] [place], [place] [id number] [address] [place] [address] Urea nitrogen mass conc 43 mg/dL High 7-22 O [facility] Comment on above: Performed By: #### H EMOGC, RETIC, CHM7, MGO, FT4, TSH, HEP3B ####[facility] [place], [place] [id number] [address] [place] [address] Urea nitrogen/Creatinine mass ratio 24 mg/mg Normal [facility] Comment on above: Performed By: #### H EMOGC, RETIC, CHM7, MGO, FT4, TSH, HEP3B ####[facility] [place], [place] [id number] [address] [place] [address] Anion gap 3 molar conc 14 mmol/L Normal 7-17 [facility] Comment on above: Performed By: #### C BCDFC, CHM7, HFP, IPB, MGO, PTPTT ####[facility] [place], [place] [id number] [place] [address] 70562 Chloride molar conc 110 mmol/L High 98-108 [facility] Comment on above: Performed By: #### C BCDFC, CHM7, HFP, IPB, MGO, PTPTT ####[facility] [place], [place] [id number] [address] [place] [address] CO2 molar conc 17 mmol/L Low 22-30 [facility] Comment on above: Performed By: #### C BCDFC, CHM7, HFP, IPB, MGO, PTPTT ####[facility] [place], [place] [id number] [place] [address] 19642 Creatinine mass conc 1.68 mg/dL High 0.70-1.30 [facility] Comment on above: Performed By: #### C BCDFC, CHM7, HFP, IPB, MGO, PTPTT ####[facility] [place], [place] [id number] [address] [place] [address] 12739 Est GFR, 50 mL/min/1.73sqM Low >60 [facility] Comment on above: Performed By: #### C BCDFC, CHM7, HFP, IPB, MGO, PTPTT ####[facility] [place], [place] [id number] [place] [address] 78971 Est GFR,non 41 mL/min/1.73sqM Low >60 [facility] Comment on above: Performed By: #### C BCDFC, CHM7, HFP, IPB, MGO, PTPTT ####[facility] [place], [place] [id number] [place] [address] 52501 Glucose mass conc 103 mg/dL High 70-99 [facility] Comment on above: Performed By: #### C BCDFC, CHM7, HFP, IPB, MGO, PTPTT ####[facility] [place], [place] [id number] [address] [place] [address] 70308 Osmolality 297 mOsm/kg Normal 278-305 [facility] Comment on above: Performed By: #### C BCDFC, CHM7, HFP, IPB, MGO, PTPTT ####[facility] [place] [address], [address] [place] [address] Potassium molar conc 3.6 mmol/L Normal 3.5-5.0 [facility] Comment on above: Performed By: #### C BCDFC, CHM7, HFP, IPB, MGO, PTPTT ####[facility] [place] [address], [address] [place] [address] Sodium molar conc 137 mmol/L Normal 133-143 [facility] Comment on above: Performed By: #### C BCDFC, CHM7, HFP, IPB, MGO, PTPTT ####[facility] [place] [address], [address] [place] [address] Urea nitrogen mass conc 42 mg/dL High 7-22 O [facility] Comment on above: Performed By: #### C BCDFC, CHM7, HFP, IPB, MGO, PTPTT ####[facility] [place], [place] [id number] [address] [place] [address] Urea nitrogen/Creatinine mass ratio 25 mg/mg Normal [facility] Comment on above: Performed By: #### C BCDFC, CHM7, HFP, IPB, MGO, PTPTT ####[facility] [place], [place] [id number] [address] [place] [address] Creatinine, Urine - Randomon 01-20-2018 Creatinine, urine mg/dL 36.00 mg/dL Normal [facility] Comment on above: Result Comment: The reference range has not been established for random urine specimens. The test result should be integrated into the clinical context for interpretation. Performed By: #### C BCDFC, CHM7, HFP, IPB, MGO, PTPTT ####[facility] [place] [address], [address] [place] [address] Free T4on 01-20-2018 T4 free mass conc 1.12 ng/dL Normal 0.89-1.76 [facility] Comment on above: Performed By: #### C BCDFC, CHM7, HFP, IPB, MGO, PTPTT ####[facility] [place] [address] HEMOGRAM (CBC and Platelet)o n 01-20-2018 Hematocrit Auto Volume Fraction (Bld) 25.8 % Low 40.1-51.0 [facility] Comment on above: Performed By: #### H EMOGC, RETIC, CHM7, MGO, FT4, TSH, HEP3B ####[place] [address] [place] [address] Hemoglobin mass conc (Bld) 8.4 g/dL Low 13.7-17.5 [facility] Comment on above: Performed By: #### H EMOGC, RETIC, CHM7, MGO, FT4, TSH, HEP3B ####[facility] [place] [address], [place] [address] MCV Auto Entitic volume (RBC) 85.4 fL Normal 79.0-92.2 [facility] Comment on above: Performed By: #### H EMOGC, RETIC, CHM7, MGO, FT4, TSH, HEP3B ####[facility] [place] [address], [place] [address] [place] [address] Mean Cell Hgb 27.8 pg Normal 25.7-32.2 [facility] Comment on above: Performed By: #### H EMOGC, RETIC, CHM7, MGO, FT4, TSH, HEP3B ####[facility] [place], [place] [id number] [address] [place] [address] Mean Cell Hgb Conc 32.6 g/dL Normal 32.3-36.5 [facility] Comment on above: Performed By: #### H HAIGC, RETIC, CHM7, MGO, FT4, TSH, HEP3B ####[facility] [place], [place] [id number] [address] [place] [address] Nucleated RBC #/vol (Bld) 0.0 /100 WBC Normal 0.0-0.2 [facility] Comment on above: Performed By: #### H EMOGC, RETIC, CHM7, MGO, FT4, TSH, HEP3B ####[facility] [place], [place] [id number] [address] [place] [address] Platelet mean volume Auto Entitic volume (Bld) 9.3 fL Low 9.4-12.4 [facility] Comment on above: Performed By: #### H EMOGC, RETIC, CHM7, MGO, FT4, TSH, HEP3B ####[facility] [place], [place] [id number] [address] [place] [address] Platelets Auto #/vol (Bld) 113 10*3/uL Low 163-337 [facility] Comment on above: Performed By: #### H EMOGC, RETIC, CHM7, MGO, FT4, TSH, HEP3B ####[facility] [place], [place] [id number] [address] [place] [address] RBC Auto #/vol (Bld) 18.9 % High 11.6-14.4 [facility] Comment on above: Performed By: #### H EMOGC, RETIC, CHM7, MGO, FT4, TSH, HEP3B ####[facility] [place], [place] [id number] [address] [place] [address] RBC Auto #/vol (Bld) 3.02 10*6/uL Low 4.63-6.08 [facility] Comment on above: Performed By: #### H EMOGC, RETIC, CHM7, MGO, FT4, TSH, HEP3B ####[facility] [place], [place] [id number] [address] [place] [address] WBC Auto #/vol (Bld) 9.01 10*3/uL Normal 4.23-9.07 [facility] Comment on above: Performed By: #### H EMOGC, RETIC, CHM7, MGO, FT4, TSH, HEP3B ####[facility] [place], [place] [id number] [address] [place] [address] HEPATIC FUNCTION PANELon Albumin mass conc 2.7 g/dL Low 3.5-5.0 [facility] Comment on above: Performed By: #### C BCDFC, CHM7, HFP, IPB, MGO, PTPTT ####[facility] [place], [place] [id number] [address] [place] [address] ALP enzyme act/vol 43 U/L Normal 32-126 [facility] Comment on above: Performed By: #### C BCDFC, CHM7, HFP, IPB, MGO, PTPTT ####[facility] [facility], [place] [address]XcgixfKettering Health Dayton[address] [place] [address] 50167 ALT enzyme act/vol 16 U/L Normal 10-52 [facility] Comment on above: Performed By: #### C BCDFC, CHM7, HFP, IPB, MGO, PTPTT ####[facility] [place] [address], [place] [address]NkslvaKettering Health Dayton[address] [place] [address] 10038 AST enzyme act/vol 11 U/L Low 14-40 [facility] Comment on above: Performed By: #### C BCDFC, CHM7, HFP, IPB, MGO, PTPTT ####[facility] [place] [address], [place] [address]VhjolmKettering Health Dayton[address] [place] [address] 24733 Bilirubin mass conc 1.8 mg/dL High <1.5 [facility] Comment on above: Performed By: #### C BCDFC, CHM7, HFP, IPB, MGO, PTPTT ####[facility] [place] [address]OwukggKettering Health Dayton[address] [place] [address] 14773 Bilirubin.direct mass conc 0.5 mg/dL High <0.3 [facility] Comment on above: Performed By: #### C BCDFC, CHM7, HFP, IPB, MGO, PTPTT ####[facility] [place] [address], [place] [address]RmzfhdKettering Health Dayton[address] [place] [address]39 Protein mass conc 5.7 g/dL Low 6.4-8.3 [facility] Comment on above: Performed By: #### C BCDFC, CHM7, HFP, IPB, MGO, PTPTT ####[facility] [place], [place] [id number] [place] [address] Inorganic Phosphateon 2017 Inorg Phosphate 3.1 mg/dL Normal 2.2-4.6 [facility] Comment on above: Performed By: #### C BCDFC, CHM7, HFP, IPB, MGO, PTPTT ####[facility] [place], [place] [id number] [place] [address] Lupus Anticoagulant Workupon 01-20-2018 Thrombin Time 15.5 sec Normal 13.0-20.0 [facility] Comment on above: Performed By: #### C BCDFC, CHM7, HFP, IPB, MGO, PTPTT ####[facility] [place], [place] [id number] [place] [address] INR Coag RelTime (PPP) 1.3 {INR} High 0.9-1.1 [facility] Comment on above: Performed By: #### C BCDFC, CHM7, HFP, IPB, MGO, PTPTT ####[facility] [place], [place] [id number] [place] [address] Prothrombin time (PT) Coag time (PPP) 16.2 s High 11.9-14.2 [facility] Comment on above: Performed By: #### C BCDFC, CHM7, HFP, IPB, MGO, PTPTT ####[facility] [place], [place] [id number] [place] [address] Lytes (Na,K,Cl), Urine - Ran domon 01-20-2018 URINE CHLORIDE 80 mmol/L Normal [facility] Comment on above: Result Comment: The reference range has not been established for random urine specimens. The test result should be integrated into the clinical context for interpretation. Performed By: #### C BCDFC, CHM7, HFP, IPB, MGO, PTPTT ####[facility] [place] [id number] [place], [place] [id number] [place] [address] URINE POTASSIUM 17.2 mmol/L Normal [facility] Comment on above: Result Comment: The reference range has not been established for random urine specimens. The test result should be integrated into the clinical context for interpretation. Performed By: #### C BCDFC, CHM7, HFP, IPB, MGO, PTPTT ####[facility] [place] [address] [place], [place] [address] [place] [address] Magnesiumon 01-20-2018 Magnesium mass conc 1.7 mg/dL Normal 1.6-2.6 [facility] Comment on above: Performed By: #### H EMOGC, RETIC, CHM7, MGO, FT4, TSH, HEP3B ####[facility] [place], [place] [id number] [place] [address] Magnesium mass conc 1.7 mg/dL Normal 1.6-2.6 [facility] Comment on above: Performed By: #### C BCDFC, CHM7, HFP, IPB, MGO, PTPTT ####[facility] [place] [address] [place] [id number] [place] [address]603 PT*PTTon 01-20-2018 aPTT Coag time (Bld) 25.6 s Normal 24.0-34.3 [facility] Comment on above: Performed By: #### C BCDFC, CHM7, HFP, IPB, MGO, PTPTT ####[facility] [place] [address] INR Coag RelTime (PPP) 1.3 {INR} High 0.9-1.1 [facility] Comment on above: Performed By: #### C BCDFC, CHM7, HFP, IPB, MGO, PTPTT ####[facility] [place], [place] [id number] [place] [address] Prothrombin time (PT) Coag time (PPP) 15.9 s High 11.9-14.2 [facility] Comment on above: Performed By: #### C BCDFC, CHM7, HFP, IPB, MGO, PTPTT ####[facility] [place], [place] [id number] [place] [address] Protein Electrophoresis with reflexon 01-20-2018 Protein mass conc 5.3 g/dL Low 6.4-8.3 [facility] Comment on above: Performed By: #### C BCDFC, CHM7, HFP, IPB, MGO, PTPTT ####[facility] [place], [place] [id number] [place] [address] Protein, Urine - Randomon PROTEIN, urine mg/dL 59 mg/dL Normal [facility] Comment on above: Performed By: #### C BCDFC, CHM7, HFP, IPB, MGO, PTPTT ####[facility] [place], [place] [id number] [place] [address] Reticulocyteson 01-20-2018 *Retic Count 4.13 % High 0.51-1.81 [facility] Comment on above: Performed By: #### H EMOGC, RETIC, CHM7, MGO, FT4, TSH, HEP3B ####[facility] [place] [address], [place] [address]ZpiuyyKettering Health Dayton[address] [place] [address] Retic Absolute 0.1247 M/uL High 0.026-0.095 [facility] Comment on above: Performed By: #### H EMOGC, RETIC, CHM7, MGO, FT4, TSH, HEP3B ####[facility] [place] [address], [address] [place] [address] Rheumatoid Factor (RF)on Rheumatoid Factor (RF) 143 IU/mL High 0-14 [facility] Comment on above: Performed By: #### C BCDFC, CHM7, HFP, IPB, MGO, PTPTT ####[facility] [place] [address], [address] [place] [address] Sodium, Urine - Randomon URINE SODIUM 74 mmol/L Normal [facility] Comment on above: Result Comment: The reference range has not been established for random urine specimens. The test result should be integrated into the clinical context for interpretation. Performed By: #### C BCDFC, CHM7, HFP, IPB, MGO, PTPTT ####[facility] [place], [place] [id number] [place] [address] TSH, High Sensitivityon 01-07 Thyrotropin Qn 5.842 uIU/mL High 0.550-4.780 [facility] Comment on above: Performed By: #### C BCDFC, CHM7, HFP, IPB, MGO, PTPTT ####[facility] [place], [place] [id number] [place] [address] Urinalysison 01-20-2018 Appearance Nom (U) Clear Normal Clear [facility] Comment on above: Performed By: #### C BCDFC, CHM7, HFP, IPB, MGO, PTPTT ####[facility] [facility], [place] [address]OcegugKettering Health Dayton[address] [place] [address] Bacteria Absent Normal Absent [facility] Comment on above: Performed By: #### C BCDFC, CHM7, HFP, IPB, MGO, PTPTT ####[facility] [place] [id number] [place], [place] [id number] [place] [address] Blood Urine Large Abnormal Negative [facility] Comment on above: Performed By: #### C BCDFC, CHM7, HFP, IPB, MGO, PTPTT ####[facility] [place] [address], [place] [address]EkvoltKettering Health Dayton[address] [place] [address]99 Color [place] - Result of urine dipstick analysis may be inaccurate due to color interference. Clinical correlation is recommended. Abnormal Yellow [facility] Comment on above: Performed By: #### C BCDFC, CHM7, HFP, IPB, MGO, PTPTT ####[facility] [place] [address]XfcdayKettering Health Dayton[address] [place] [id number] COMMENT URINE None Normal [facility] Comment on above: Performed By: #### C BCDFC, CHM7, HFP, IPB, MGO, PTPTT ####[facility] [place] [address] 51618EmjtzcKettering Health [facility] [place] [address] 25783 Glucose Ql (U) Negative Normal Negative [facility] Comment on above: Performed By: #### C BCDFC, CHM7, HFP, IPB, MGO, PTPTT ####[facility] [address] [place] [address] 54237KiizzhKettering Health [facility] [place] [address] 11027 Ketones Ql (U) Negative Normal Negative [facility] Comment on above: Performed By: #### C BCDFC, CHM7, HFP, IPB, MGO, PTPTT ####[facility] [place] [id number] [place], [place] [id number] [place] [address] 91701 Leukocyte Esterase Trace Abnormal Negative [facility] Comment on above: Performed By: #### C BCDFC, CHM7, HFP, IPB, MGO, PTPTT ####[facility] [place] [address] 58535FjfbtuKettering Health [facility] [place] [address] 35961 Nitrites Urine Negative Normal Negative [facility] Comment on above: Performed By: #### C BCDFC, CHM7, HFP, IPB, MGO, PTPTT ####[facility] [place] [address] 99207VgcvozKettering Health [facility] [place] [address] 16614 pH Test strip (U) 5.0 [pH] Normal 5.0-7.0 [facility] Comment on above: Performed By: #### C BCDFC, CHM7, HFP, IPB, MGO, PTPTT ####[facility] [place] [address] 19691GntkulKettering Health Dayton[address] [place] [address] 07614 Protein Urine 30 mg/dL Abnormal Negative [facility] Comment on above: Performed By: #### C BCDFC, CHM7, HFP, IPB, MGO, PTPTT ####[facility] [place] [address] 61114GsfldzKettering Health [facility] [place] [address] 65672 RBC LM.HPF #/area (Urine sed) /[HPF] Normal 0-2 [facility] Comment on above: Performed By: #### C BCDFC, CHM7, HFP, IPB, MGO, PTPTT ####[facility] [place], [place] [id number] [address] [place] [address] Specific [place] urine 1.013 Normal 1.001-1.035 O [facility] Comment on above: Performed By: #### C BCDFC, CHM7, HFP, IPB, MGO, PTPTT ####[facility] [place], [place] [id number] [place] [address] Squamous Epithelial Absent Normal [facility] Comment on above: Performed By: #### C BCDFC, CHM7, HFP, IPB, MGO, PTPTT ####[facility] [place], [place] [id number] [address] [place] [address] Urobilinogen urine 0.2 EU/dL Normal <2.0 [facility] Comment on above: Performed By: #### C BCDFC, CHM7, HFP, IPB, MGO, PTPTT ####[facility] [place], [place] [id number] [address] [place] [address] WBC LM.HPF #/area (Urine sed) 0-5 Abnormal 0-2 [facility] Comment on above: Performed By: #### C BCDFC, CHM7, HFP, IPB, MGO, PTPTT ####[facility] [place], [place] [id number] [address] [place] [address] Urine Eosinophilon 8 INR Coag RelTime (Bld) Dr. Deandra Gonsales MD, PhD Normal [facility] Comment on above: Performed By: #### C BCDFC, CHM7, HFP, IPB, MGO, PTPTT ####[facility] [place] [address] 31552UozmpnKettering Health [facility] [place] [address] 23383 URINE EOSINOPHILS Occasional eosinophi ls are seen in a background of acute inflammation. Abnormal Negative [facility] Comment on above: Performed By: #### C BCDFC, CHM7, HFP, IPB, MGO, PTPTT ####[facility] [place] [address] 21905GvrnmmKettering Health [facility] [place] [address] 25290 Urine Microscopicon 01-21-20 18 Bacteria Absent Normal Absent [facility] Comment on above: Performed By: #### C BCDFC, CHM7, HFP, IPB, MGO, PTPTT ####[facility] [place] [id number] [place], [place] [id number] [place] [address] 80093 COMMENT URINE None Normal [facility] Comment on above: Performed By: #### C BCDFC, CHM7, HFP, IPB, MGO, PTPTT ####[facility] [place] [id number] [place], [place] [id number] [place] [address] 04168 RBC LM.HPF #/area (Urine sed) /[HPF] Normal 0-2 [facility] Comment on above: Performed By: #### C BCDFC, CHM7, HFP, IPB, MGO, PTPTT ####[facility] [place] [address] 94293HdvjnpKettering Health Dayton[address] [place] [address] 28400 Squamous Epithelial Absent Normal [facility] Comment on above: Performed By: #### C BCDFC, CHM7, HFP, IPB, MGO, PTPTT ####[facility] [place] [address], [address] [place] [address] WBC LM.HPF #/area (Urine sed) 0-5 Abnormal 0-2 [facility] Comment on above: Performed By: #### C BCDFC, CHM7, HFP, IPB, MGO, PTPTT ####[facility] [place] [address], [address] [place] [address] Urine Protein/Creat Ratio, R andomon 01-20-2018 Creatinine, urine mg/dL 35.00 mg/dL Normal [facility] Comment on above: Performed By: #### C BCDFC, CHM7, HFP, IPB, MGO, PTPTT ####[facility] [place] [address], [address] [place] [address] PROT/CREAT RATIO 1.714 mg prot/mg crea Normal [facility] Comment on above: Performed By: #### C BCDFC, CHM7, HFP, IPB, MGO, PTPTT ####[facility] [place] [address], [address] [place] [address] PROTEIN, urine mg/dL 60 mg/dL Normal [facility] Comment on above: Performed By: #### C BCDFC, CHM7, HFP, IPB, MGO, PTPTT ####[facility] [place], [place] [id number] [place] [address] Urine Screen with reflex to microscopicon 01-20-2018 Appearance Nom (U) Clear Normal Clear [facility] Comment on above: Performed By: #### C BCDFC, CHM7, HFP, IPB, MGO, PTPTT ####[facility] [place] [id number] [place], [place] [id number] [place] [address] Blood Urine Large Abnormal Negative [facility] Comment on above: Performed By: #### C BCDFC, CHM7, HFP, IPB, MGO, PTPTT ####[facility] [place] [id number] [place], [place] [id number] [place] [address] 56792 Color [place] - Result of urine dipstick analysis may be inaccurate due to color interference. Clinical correlation is recommended. Abnormal Yellow [facility] Comment on above: Performed By: #### C BCDFC, CHM7, HFP, IPB, MGO, PTPTT ####[facility] [place], [place] [id number] [place] [address] Glucose Ql (U) Negative Normal Negative [facility] Comment on above: Performed By: #### C BCDFC, CHM7, HFP, IPB, MGO, PTPTT ####[facility] [place], [place] [id number] [address] [place] [address] Ketones Ql (U) Negative Normal Negative [facility] Comment on above: Performed By: #### C BCDFC, CHM7, HFP, IPB, MGO, PTPTT ####[facility] [place], [place] [id number] [address] [place] [address] Leukocyte Esterase Trace Abnormal Negative [facility] Comment on above: Performed By: #### C BCDFC, CHM7, HFP, IPB, MGO, PTPTT ####[facility] [place] [id number] [place], [place] [id number] [place] [address] 14721 Nitrites Urine Negative Normal Negative [facility] Comment on above: Performed By: #### C BCDFC, CHM7, HFP, IPB, MGO, PTPTT ####[facility] [place] [address] 61769ZqfcsjKettering Health Dayton[address] [place] [address] 68440 pH Test strip (U) 5.0 [pH] Normal 5.0-7.0 [facility] Comment on above: Performed By: #### C BCDFC, CHM7, HFP, IPB, MGO, PTPTT ####[facility] [place] [id number] [place], [place] [id number] [place] [address] 27062 Protein Urine 30 mg/dL Abnormal Negative [facility] Comment on above: Performed By: #### C BCDFC, CHM7, HFP, IPB, MGO, PTPTT ####[facility] [place] [id number] [place], [place] [id number] [place] [address] 08517 Specific [place] urine 1.012 Normal 1.001-1.035 O [facility] Comment on above: Performed By: #### C BCDFC, CHM7, HFP, IPB, MGO, PTPTT ####[facility] [place] [id number] [place], [place] [id number] [place] [address] 39275 Urobilinogen urine 0.2 EU/dL Normal <2.0 [facility] Comment on above: Performed By: #### C BCDFC, CHM7, HFP, IPB, MGO, PTPTT ####[facility] [place] [address] 15896CvbkkpKettering Health [facility] [place] [address] 21328 Urine Urea Nitrogen - random on 01-20-2018 Urine Urea Nitrogen 350 mg/dL Normal [facility] Comment on above: Performed By: #### C BCDFC, CHM7, HFP, IPB, MGO, PTPTT ####[facility] [place], [place] [address]XblcfmKettering Health [facility] [place], [place] [address] Office Visit: body aches/flu shedon 08-27-2017 Bilirubin Ql (U) Negative Invalid Interpretation Code [employer] Work Phone: [phone] blood in urine (hemoglobin) by dipstick Negative Invalid Interpretation Code [employer] Work Phone: [phone] Dietary management education, guidance, and counseling (procedure) yes Invalid Interpretation Code [employer] Work Phone: [phone] Documentation of current medications (procedure) Done Invalid Interpretation Code [employer] Work Phone: [phone] Fall risk assessment No Invalid Interpretation Code [employer] Work Phone: [phone] specific gravity, urine 1.005 Invalid Interpretation Code [employer] Work Phone: [phone] Tobacco smoking status NHIS Never Invalid Interpretation Code [employer] Work Phone: [phone] Tobacco use CPHS Never smoker Invalid Interpretation Code [employer] Work Phone: [phone] Urine, appearance clear Invalid Interpretation Code [employer] Work Phone: [phone] Urine, color yellow Invalid Interpretation Code [employer] Work Phone: [phone] Urine, glucose presence Negative Invalid Interpretation Code [employer] Work Phone: [phone] Urine, ketones presence Negative Invalid Interpretation Code [employer] Work Phone: [phone] Urine, leukocyte esterase presence Negative Invalid Interpretation Code [employer] Work Phone: [phone] Urine, nitrite presence Negative Invalid Interpretation Code [employer] Work Phone: [phone] Urine, pH 5.0 [pH] Invalid Interpretation Code [employer] Work Phone: [phone] Urine, protein Negative Invalid Interpretation Code [employer] Work Phone: [phone] Urine, urobilinogen presence Negative Invalid Interpretation Code [employer] Work Phone: [phone] Lab Report: Basic Metabolic Profile (BMP)on 05-18-2016 Anion gap 7 mmol/L Invalid Interpretation Code 5-15 [employer] Work Phone: [phone] BUN/Creatinine Ratio 14.4 RATIO Invalid Interpretation Code 10-20 [employer] Work Phone: [phone] Calcium 8.4 mg/dL Low 8.5-10.1 [employer] Work Phone: [phone] Chloride 105 mmol/L Invalid Interpretation Code 98-107 [employer] Work Phone: [phone] CO2 26.0 mmol/L Invalid Interpretation Code 21.0-32.0 [employer] Work Phone: [phone] Creatinine 0.97 mg/dL Invalid Interpretation Code 0.70-1.30 [employer] Phone: [phone] eGFR (non-black) 101 mL/min/{1.73_m2} Invalid Interpretation Code >60 [employer] Work Phone: [phone] eGFR (non-black) 83 mL/min/{1.73_m2} Invalid Interpretation Code >60 [employer] Work Phone: [phone] Glucose mass conc 151 mg/dL High 70-110 [employer] Work Phone: [phone] Potassium molar conc 3.8 mmol/L Invalid Interpretation Code 3.5-5.1 [employer] Phone: [phone] Sodium 138 mmol/L Invalid Interpretation Code 136-145 [employer] Work Phone: [phone] Urea nitrogen 14 mg/dL Invalid Interpretation Code 7-18 [employer] Work Phone: [phone] Lab Report: CBC-Complete Blo od Cnt No Diffon 05-18-2016 Erythrocyte distribution width Auto Ratio (RBC) 13.5 % Invalid Interpretation Code 11.6-14.6 [employer] Work Phone: [phone] Erythrocytes (RBC) 5.26 10*6/uL Invalid Interpretation Code 4.6-6.2 [employer] Work Phone: [phone] Hematocrit (HCT) 45.6 % Invalid Interpretation Code 40-54 [employer] Phone: [phone] Hemoglobin mass conc (Bld) 15.3 g/dL Invalid Interpretation Code 13.0-16.5 [employer] Work Phone: [phone] MCH 29.1 pg Invalid Interpretation Code 27.0-32.0 [employer] Work Phone: [phone] MCHC mass conc (RBC) 33.6 G/GL Invalid Interpretation Code 32-36 [employer] Work Phone: [phone] MCV 86.7 fL Invalid Interpretation Code 80-94 [employer] Work Phone: [phone] Platelets 152 10*3/mm3 Invalid Interpretation Code 150-450 [employer] Work Phone: [phone] PMV by Brenda 9.0 fL Invalid Interpretation Code 6.2-12.0 [employer] Work Phone: [phone] RDW SD 42.5 fL Invalid Interpretation Code 35.1-43.9 [employer] Work Phone: [phone] WBC (Leukocytes) 4.4 10*3/uL Invalid Interpretation Code 4.4-11.0 [employer] Work Phone: [phone] Lab Report: Thyroid Stim Hor geovanni (TSH)on 05-18-2016 Thyroid stimulating hormone (TSH) 4.30 u[iU]/mL High 0.358-3.74 [employer] Work Phone: Office Visit: Umbilical Eleazar haon 10-12-2015 Colonoscopy (procedure) Colonoscopy (procedure) Invalid Interpretation Code [employer] Work Phone: [phone] Vital Signs Date Time Vital Sign Value Performing Clinician Facility 08-24-2018 14:25-0500 BMI (Body Mass Index) 26.45 kg/m2 [facility] Work Phone: 08-24-2018 14:25-0500 BP Diastolic 86 mm[Hg] [facility] Work Phone: 08-24-2018 14:25-0500 BP Systolic 114 mm[Hg] [facility] Work Phone: 08-24-2018 14:25-0500 Height 180 cm [facility] Work Phone: 08-24-2018 14:25-0500 Weight 85.7 kg Travis [facility] Work Phone: 08-24-2018 09:56-0500 BMI (Body Mass Index) 26.36 kg/m2 Travis [facility] Work Phone: 08-24-2018 09:56-0500 BP Diastolic 86 mm[Hg] [facility] Work Phone: 08-24-2018 09:56-0500 BP Systolic 114 mm[Hg] [facility] Work Phone: 08-24-2018 09:56-0500 Height 180.3 cm [facility] Work Phone: 08-24-2018 09:56-0500 Pulse (Heart Rate) 82 /min [facility] Work Phone: 08-24-2018 09:56-0500 Respiratory Rate 16 /min [facility] Work Phone: 08-24-2018 09:56-0500 Weight 85.73 kg [facility] Work Phone: 01-22-2018 16:30-0400 Body weight Measured SANTI BEEBE [facility] Comment on above: Performed By: #### CBCDFC, CHM7, HFP, IP B, MGO, PTPTT ####[facility] [place] [address] 08-27-2017 09:33-0500 BMI (Body Mass Index) 33.89 kg/m2 Colette Madrid PA-C [facility] Work Phone: 08-27-2017 09:33-0500 Body Temperature 99.2 [degF] Colette Madrid PA-C [facility] Work Phone: 08-27-2017 09:33-0500 BP Diastolic 90 mm[Hg] Colette Madrid PA-C [facility] Work Phone: 08-27-2017 09:33-0500 BP Systolic 148 mm[Hg] Colette Madrid PA-C [facility] Work Phone: 08-27-2017 09:33-0500 Height 180.34 cm Colette Madrid PA-C [facility] Work Phone: 08-27-2017 09:33-0500 Pulse (Heart Rate) 78 /min Colette Madrid PA-C [facility] Work Phone: 08-27-2017 09:33-0500 Respiratory Rate 14 /min Colette Madrid PA-C [facility] Work Phone: 08-27-2017 09:33-0500 Weight 110.22 kg Colette Madrid PA-C [facility] Work Phone: 06-02-2016 09:57-0400 BSA (Body Surface Area) 2.3 m2 [facility] Work Phone: 06-02-2016 09:57-0400 Height 180.34 cm Colette Madrid PA-C [facility] Work Phone: 06-02-2016 09:57-0400 Weight 110.82 kg SRAVANTHI [facility] Work Phone: 05-16-2016 13:14-0400 Body Temperature 98.1 [degF] Colette Madrid PA-C [facility] Work Phone: Encounters Encounter Date Encounter Type Care Provider Facility Start: 09-12-2018 End: 09-12-2018 Patient encounter procedure Partha Crump Work Phone: [facility] Comment on above: Results Start: 08-24-2018 Patient encounter procedure TRAVIS PHAM [facility] Start: 08-24-2018 End: 08-24-2018 Patient encounter Travis Pham Work Phone: [facility] Comment on above: Arrived Start: 08-24-2018 End: 08-24-2018 Office outpatient visit 15 minutes Travis Pham Work Phone: [facility] Comment on above: Non-rheumatic mitral regurgitation (Primary Dx) Start: 05-18-2018 Patient encounter procedure TRAVIS PHAM [facility] Start: 03-14-2018 Patient encounter procedure KIMBER SOLORZANO [facility] Start: 03-14-2018 Patient encounter procedure KIMBER SOLORZANO [facility] Start: 02-09-2018 Patient encounter procedure TRAVIS PHAM [facility] Start: 01-19-2018 End: 02-05-2018 Evaluation and management of inpatient SANTI BEEBE [facility] Procedures Date Procedure Procedure Detail Performing Clinician Start: 08-24-2018 Echocardiography SANTI MURILLOAS Start: 08-24-2018 End: 08-24-2018 Transthoracic echocardiography Travis Pham Work Phone: Start: 08-24-2018 Follow-up visit Follow-up SANTI BEEBE Start: 01-31-2018 PSA screening EDLISA MURILLO Comment on above: Performed By: #### C BCDFC, CHM7, HFP, IPB, MGO, PTPTT ####[facility] [place] [address] [place] [address] Start: 01-22-2018 Echocardiography SANTI BEEBE Start: 05-16-2016 End: 05-18-2016 Follow Up Appt Other Johan patel MD Work Phone: Plan of Treatment Date Care Activity Detail Author Start: 03-14-2019 Finding of potassium level (finding) POTASSIUM [facility] Work Phone: Start: 01-31-2019 Prostate specific an tigen measurement PROSTATE CANCER SCREENING DISCUSSION [facility] Work Phone: Start: 01-20-2019 Thyrotropin Qn TSH [facility] Work Phone: Start: 12-07-2018 End: 12-07-2018 Ambulatory 12/07/2018 Office Visit Cardiovascular Medicine Travis Pham MD [address] [place] [address] [facility] Start: 08-24-2018 Ambulatory 08/24/2018 Hos pital Encounter Echocardiography Travis Pham MD [address] [place] [address] Arrived [facility] Comment on above: Arrived Start: 2018 Pneumococcal vaccination PNEUM OCOCCAL VACCINE SERIES (1 of 2 - PCV13) [facility] Work Phone: Start: 06-09-2018 Influenza vaccination INFLUENZA VACC INE (#1) [facility] Work Phone: Start: 08-27-2017 End: 08-27-2017 Appointment Appointment [facility] Work Phone: Start: 06-02-2016 End: 06-02-2016 Follow-up visit Follow Up as needed [facility] Work Phone: Start: 06-02-2016 End: 08-01-2016 Primary Care Physician Primary Care Physician Nancy Arce, [facility], [address], [place], [address] [facility] Work Phone: Start: 05-16-2016 End: 05-18-2016 Follow Up Appt Other Follow Up Appt Other [facility] Work Phone: Start: 2003 Colonoscopy COLON CANCER S CREENING DISCUSSION [facility] Work Phone: Start: 2003 Protein mass conc COLON CANCER SCREENING DISCUSSION [facility] Work Phone: Start: 1993 Fasting lipid profile LIPID SCREENIN G [facility] Work Phone: Start: 1972 Third diphtheria, te tanus and acellular pertussis (DTaP) vaccination TDAP (ADULT) [facility] Work Phone: Start: 1971 Tetanus vaccination TETANUS [facility] Work Phone: Natriuretic peptide B mass conc (Bld) B-TYPE NATRIURETIC PEPTIDE (BRAIN) Routine Non-rheumatic mitral regurgitation 08/24/2018 11:11 AM EST [facility] Work Phone: Transthoracic echocardiography ECHOCARDIOGRAM Routine Non-rheumatic mitral regurgitation Ordered: 08/24/2018 [facility] Work Phone: Comment on above: Ordered: 08/24/2018 Immunizations Immunization Date Immunization Notes Care Provider Kelley zafar 07-17-2017 influenza virus vacc ine, unspecified formulation Travis Pham [facility] Work Phone: Payers Date Payer Category Payer Unknown [id number] 1955 Unknown [id number] 2.16.8 [id number] 1955 Unknown [id number] 2.16.8 [id number] 1955 Unknown [id number] 2.16.8 [id number] 1955 Unknown [id number] 2.16.8 [id number] 1955 Unknown [id number] 2.16.8 [id number] 1955 Unknown [id number] 2.16.8 [id number] 1955 Unknown [id number] 2.16.8 [id number] 1955 Unknown [id number] 2.16.8 [id number] 1955 Unknown [id number] 2.16.8 [id number] Social History Date Type Detail Facility Start: 03-14-2018 Tobacco smoking status NHIS Never sm [facility] Work Phone: Sex Assigned At Not on file [facility] Work Phone: Reason for Referral Status Reason Specialty Diagnoses / Procedures Referred By Contact Referred To Contact New Request Thoracic Surgery Diagnoses Non-rheumatic mitral regurgitation Partha Crump MD [address] [place] [address] Status Reason Specialty Diagnoses / Procedures Referred By Contact Referred To Contact Auth Not Needed Diagnoses Non-rheumatic mitral regurgitation Procedures ECHOCARDIOGRAM Travis Pham MD [address] [place] [address] Assessments Diagnosis Non-rheumatic mitral regurgi tation - Primary Diagnosis Non-rheumatic mitral regurgi tation - Primary Summary Purpose Family History No Family History Records Found Advance Directives No Advanced Directives Records Found Instructions * Patient Instructions - Lucy Bruner RN - 08/24/2018 11:[address] Pham has ordered an echocardiogram and lab work to be done today Follow up with Dr. Pham in 3 months in this encounter History of Present Illness * Lucy Bruner RN - 08/24/2018 10:15 AM EST Patient Education Patient education regarding the following topic(s) was provided on 08/24/2018: diagnostic tesing (echocardiogram). Those in attendance for the education included: patient and daughter. Barriers in providing the education included: none. The following methods were used in providing the education: explanation and handout. OSC handoutsgiven included: After visit summary. The response of those in attendance was: applies knowledge. The following Clinical Intervention(s) occurred during today s visit: Teaching/education provided to patient and or support team regarding diagnostic testing. * Travis Pham MD - 08/24/2018 10:15 AM EST 08/24/2018 I personally, saw, examined, and discussed the patient with Dr. Crump, personally went over the associated lab work and imaging studies and participated in the assessment and development of the continuing evaluation and treatment plans. I agree with the documentation found in the progress note. Travis Pham MD Professor of Clinical Internal Medicine Division of Cardiology. [employer]. [facility]. in this encounter Additional Source Comments Reason for Visit (unrecogniz ed section and content) Status Reason Specialty Diagnoses / Procedures Referred By Contact Referred To Contact Auth Not Needed Diagnoses Non-rheumatic mitral regurgitation Procedures ECHOCARDIOGRAM Travis Pham MD [address] [place] [id number] Reason Comments Results Reason Comments Follow-up (unrecognized sect ion and content) No Status Records Found INFORMATION SOURCE (unrecogn ized section and content) DATE CREATED AUTHOR 09/17/2018 [facility] FOR RECORDS PERTAINING TO PATIENTS WHO ARE OR HAVE BEEN ENROLLED IN A CHEMICAL DEPENDENCY/SUBSTANCEABUSE PROGRAM, SOME INFORMATION MAY BE OMITTED. This clinical summary was aggregated from multiple sources. Caution should be exercised in using it in the provision of clinical care. This summary normalizes information from multiple sources, and as a consequence, information in this document may materially change the coding, format and clinical context of patient data. In addition, data may be omitted in some cases. CLINICAL DECISIONS SHOULD BE BASED ON THE PRIMARY CLINICAL RECORDS. [employer] provides no warranty or guarantee of the accuracy or completeness of information in this document.
== END | disposition home or self-care (01) ==
LOC: CVS 07:04
PROVIDERS: PCP Family Medicine Geriatric Medicine; Referring Provider Surgery; Visit Provider Surgery
DX: K40.90 Unilateral inguinal hernia, without obstruction or gangrene, not specified as recurrent (principal); I50.20 Unspecified systolic (congestive) heart failure; Z95.2 Presence of prosthetic heart valve; Z98.890 Other specified postprocedural states
CPT/HCPCS: 74177; 93308; Q9967

== ENCOUNTER → 2025-01-17 | Outpatient (CLI) | payer OTHER, MEDICARE, SELFPAY ==
[2025-01-17 12:10] LABS: Hematocrit 46.5 % (40-54); Hemoglobin 15.2 g/dL (13.0-16.5); Mean Corp Hgb Conc 32.7 g/dL (32-36); Mean Corpuscular Hgb 29.3 pg (27.0-32.0); Mean Corpuscular Volume 89.8 fL (80-94); Mean Platelet Vol. 10.1 fl (6.2-12.0); Platelet Count 114 K/mm3 (150-450); RBC Distribution Width CV 14.5 % (11.6-14.6); RBC Distribution Width SD 47.6 fl (35.1-43.9); Red Blood Count 5.18 M/mm3 (4.6-6.2); White Blood Count 3.8 K/mm3 (4.4-11.0)
[2025-01-17 12:58] LABS: ALB/GLOB Ratio 1.4 RATIO (0.9-2.4); AST(SGOT) 21 U/L (<=37); Alanine Aminotransfer ALT/SGPT 19 U/L (<=46); Albumin, Serum 4.1 g/dL (3.4-4.8); Alkaline Phosphatase 74 U/L (40-129); Anion Gap 10 (5-15); BUN 19 mg/dL (4-19); BUN/Creat Ratio 18.3 RATIO (10-20); Calcium,Total 9.4 mg/dL (7.6-11.0); Carbon Dioxide 24.4 mmol/L (21.0-32.0); Chloride 107 mmol/L (98-108); Cholesterol 170 mg/dL (<=200); Creatinine, Serum 1.01 mg/dL (0.70-1.20); EST Glomerular Filtration Rate 80 (>60); Globulin 3.1 g/dL (2.2-4.2); Glucose 80 mg/dL (70-99); High Density Lipoprotein 61 mg/dL; Low Density Lipoprotein Calc. 91 mg/dL; Potassium 4.3 mmol/L (3.3-5.1); Protein, Total 7.2 g/dL (5.9-8.4); Sodium Level 141 mmol/L (133-145); Total Bilirubin 0.61 mg/dL (0.00-1.30); Triglycerides 92 mg/dL; Uric Acid 4.6 mg/dL (3.5-7.2); Very Low Density Lipoprotein 18 mg/dL (5-40); cholesterol:hdl ratio screen 2.78
== END | disposition home or self-care (01) ==
LOC: LAB 11:20
PROVIDERS: PCP Family Medicine Geriatric Medicine; Referring Provider Family Medicine Geriatric Medicine; Visit Provider Family Medicine Geriatric Medicine
DX: I10 Essential (primary) hypertension (principal); E78.5 Hyperlipidemia, unspecified; M10.9 Gout, unspecified; E55.9 Vitamin D deficiency, unspecified
CPT/HCPCS: 36415; 80053; 80061; 82306; 84443; 84550; 85027

== ENCOUNTER → 2025-03-04 | Outpatient (CLI) | payer OTHER, MEDICARE, SELFPAY ==
[2025-03-04 11:48] LABS: Absolute Lymphocyte Count 0.73 X10^3/uL (0.83-4.51); Absolute Neutrophil Count 2.7 X10^3/uL (2.0-7.7); Basophil# 0.05 X10^3/uL; Basophil% 1.2 % (0-1); Eosinophil# 0.06 X10^3/uL; Eosinophils% 1.5 % (0-5); Hematocrit 46.6 % (40-54); Hemoglobin 15.1 g/dL (13.0-16.5); Lymphocyte # 0.73 X10^3/ul (0.83-4.51); Lymphocyte % 18.2 % (19-41); Mean Corp Hgb Conc 32.4 g/dL (32-36); Mean Corpuscular Hgb 29.3 pg (27.0-32.0); Mean Corpuscular Volume 90.3 fL (80-94); Mean Platelet Vol. 10.1 fl (6.2-12.0); Monocyte# 0.46 X10^3/uL; Monocyte% 11.5 % (0-10); NRBC Flagged by Analyzer 0 % (0-5); Neutrophil % 67.4 % (47-70); Platelet Count 115 K/mm3 (150-450); RBC Distribution Width CV 14.4 % (11.6-14.6); RBC Distribution Width SD 47.7 fl (35.1-43.9); Red Blood Count 5.16 M/mm3 (4.6-6.2)
[2025-03-04 11:58] LABS: International Normalized Ratio 1.2; Prothrombin Time (Protime)PT. 15.4 SECONDS (11.7-14.9)
[2025-03-04 12:46] LABS: ALB/GLOB Ratio 1.5 RATIO (0.9-2.4); AST(SGOT) 24 U/L (<=37); Alanine Aminotransfer ALT/SGPT 20 U/L (<=46); Albumin, Serum 4.2 g/dL (3.4-4.8); Alkaline Phosphatase 68 U/L (40-129); Anion Gap 8 (5-15); BUN 21 mg/dL (4-19); BUN/Creat Ratio 20.2 RATIO (10-20); Calcium,Total 9.8 mg/dL (7.6-11.0); Carbon Dioxide 26.1 mmol/L (21.0-32.0); Chloride 109 mmol/L (98-108); Creatinine, Serum 1.04 mg/dL (0.70-1.20); EST Glomerular Filtration Rate 77 (>60); Globulin 2.8 g/dL (2.2-4.2); Glucose 105 mg/dL (70-99); Potassium 5.2 mmol/L (3.3-5.1); Sodium Level 143 mmol/L (133-145); Total Bilirubin 0.64 mg/dL (0.00-1.30)
== END | disposition home or self-care (01) ==
LOC: LAB 11:06
PROVIDERS: PCP Family Medicine Geriatric Medicine; Referring Provider Family Medicine Geriatric Medicine; Visit Provider Family Medicine Geriatric Medicine
DX: Z01.818 Encounter for other preprocedural examination (principal); I50.20 Unspecified systolic (congestive) heart failure; I11.0 Hypertensive heart disease with heart failure
CPT/HCPCS: 36415; 80053; 85025; 85610

== ENCOUNTER → 2025-03-07 | Outpatient (CLI) | payer OTHER, MEDICARE, SELFPAY ==
[2025-03-07 11:25] LABS: Anion Gap 11 (5-15); BUN 15 mg/dL (4-19); BUN/Creat Ratio 14.6 RATIO (10-20); Calcium,Total 9.1 mg/dL (7.6-11.0); Carbon Dioxide 20.8 mmol/L (21.0-32.0); Chloride 108 mmol/L (98-108); Creatinine, Serum 1.05 mg/dL (0.70-1.20); EST Glomerular Filtration Rate 76 (>60); Glucose 75 mg/dL (70-99); Potassium 3.9 mmol/L (3.3-5.1); Sodium Level 140 mmol/L (133-145)
== END | disposition home or self-care (01) ==
LOC: LAB 09:22
PROVIDERS: PCP Family Medicine Geriatric Medicine; Referring Provider Family Medicine Geriatric Medicine; Visit Provider Family Medicine Geriatric Medicine
DX: E87.5 Hyperkalemia (principal)
CPT/HCPCS: 36415; 80048

== ENCOUNTER → 2025-07-23 | Outpatient (CLI) | payer OTHER, MEDICARE, SELFPAY ==
[2025-07-23 09:32] LABS: Hematocrit 46.1 % (40-54); Hemoglobin 15.1 g/dL (13.0-16.5); Immature Granulocytes Count 0.000 X10^3/uL (0.0-0.0); Mean Corp Hgb Conc 32.8 g/dL (32-36); Mean Corpuscular Volume 90.9 fL (80-94); Mean Platelet Vol. 9.0 fl (6.2-12.0); NRBC Flagged by Analyzer 0 % (0-5); Platelet Count 111 K/mm3 (150-450); RBC Distribution Width CV 13.7 % (11.6-14.6); RBC Distribution Width SD 45.1 fl (35.1-43.9); Red Blood Count 5.07 M/mm3 (4.6-6.2); White Blood Count 4.0 K/mm3 (4.4-11.0)
[2025-07-23 10:14] LABS: AST(SGOT) 27 U/L (<=37); Alanine Aminotransfer ALT/SGPT 31 U/L (<=46); Albumin, Serum 4.2 g/dL (3.4-4.8); Alkaline Phosphatase 77 U/L (40-129); Anion Gap 8 (5-15); BUN 20 mg/dL (4-19); BUN/Creat Ratio 19.0 RATIO (10-20); Calcium,Total 9.6 mg/dL (7.6-11.0); Carbon Dioxide 27.5 mmol/L (21.0-32.0); Chloride 106 mmol/L (98-108); Globulin 3.0 g/dL (2.2-4.2); Glucose 63 mg/dL (70-99); Potassium 4.2 mmol/L (3.3-5.1); Uric Acid 4.7 mg/dL (3.5-7.2); Vitamin D,25 Hydroxy 30.2 ng/mL (30-100)
[2025-07-23 17:24] LABS: Xtra Tube Kwok EXTRA TUBE
== END | disposition home or self-care (01) ==
LOC: POLAB3 09:24
PROVIDERS: PCP Family Medicine Geriatric Medicine; Visit Provider Family Medicine Geriatric Medicine
DX: I10 Essential (primary) hypertension (principal); E55.9 Vitamin D deficiency, unspecified; M10.9 Gout, unspecified
CPT/HCPCS: 36415; 80053; 82306; 84443; 84550; 85025